=== PATIENT | male | born 1960 | race Caucasian/White ===

== ENCOUNTER → 2019-11-12 11:42 | Outpatient (BNVA) | payer MEDICARE, SELFPAY | PROVIDERS: PCP Internal Medicine; Visit Provider Internal Medicine | DX: I48.19 Other persistent atrial fibrillation (principal); Z51.81 Encounter for therapeutic drug level monitoring; Z79.01 Long term (current) use of anticoagulants | CPT/HCPCS: 85610 ==

== ENCOUNTER → 2019-11-21 09:44 | Outpatient (BNVA) | payer MEDICARE, SELFPAY | PROVIDERS: PCP Internal Medicine; Visit Provider Internal Medicine | DX: I48.19 Other persistent atrial fibrillation (principal); Z51.81 Encounter for therapeutic drug level monitoring; Z79.01 Long term (current) use of anticoagulants | CPT/HCPCS: 85610 ==

== ENCOUNTER → 2019-11-24 15:03 | Outpatient (REF) | payer MEDICARE, SELFPAY ==
--- NOTE | 2019-11-24 15:09 | CA_ITS ---
Transthoracic Echocardiogram Patient (Last, First, Middle): Ketan Cho R Gender: Male Date of : 1960 Age: 59 Procedure Date: 11/24/2019 Procedure Type: Transthoracic Echocardiogram Location: OP Height: 182.88 cm Weight: 163.3 kg BSA: 2.73 m2 Heart Rate: bpm BP: 142 / 81 mmHg Senior Manufacturing Supervisor: Referring MD: Niels Lang MD Symptoms: DIANA Study Quality: Technically Difficult, due to obesity, Contrast us ECG Rhythm: Sinus Conclusions: - Normal left ventricular size and systolic function. - Elevated filling pressures. - The left atrium is moderately dilated. - There is no mitral valve regurgitation. There is no mitral valve stenosis. h/o mitral valve repair. Mean gradient across mitral valve of 6 mm Hg at heart rate 71/min. MVA by pressure half time is 2.04 cm2. - Moderately elevated right atrial pressure. Severe pulmonary hypertension is present. - There is mild dilatation of the sinuses of Valsalva. Findings Left Ventricle Normal left ventricular size and systolic function. There is moderately increased left ventricular wall thickness. The visually estimated ejection fraction is between 55-60%. There is no evidence of regional wall motion abnormalities. There is paradoxical septal motion consistent with post operative status. Diastolic function is indeterminate on the basis of available data. Spectral Doppler is indicative of a pseudonormal filling pattern. Elevated filling pressures. Right Ventricle The right ventricle was not well visualized. Atria The left atrium is moderately dilated. The right atrium was not well visualized. Aortic Valve The aortic valve was not well visualized. There is no aortic valve stenosis. There is no aortic valve regurgitation. Mitral Valve There is no mitral valve regurgitation. There is no mitral valve stenosis. h/o mitral valve repair. Mean gradient across mitral valve of 6 mm Hg at heart rate 71/min. MVA by pressure half time is 2.04 cm2. Pulmonic Valve The pulmonic valve was not well visualized. Tricuspid Valve The tricuspid valve was not well visualized. Moderately elevated right atrial pressure. Severe pulmonary hypertension is present. Great Vessels There is mild dilatation of the sinuses of Valsalva. Venous The inferior vena cava is dilated and collapses less than 50% with inspiration. Pericardium/Pleural There is no evidence of pericardial effusion. Prior Study Comparison No prior study available for comparison. h/o mitral valve repair. Patient of Dr Lakesha. Measurements 2D Linear Measurements IVSd: 1.39 0.6-0.9/0.6-1.0 cm LVIDd: 6.15 3.9-5.3/4.2-5.9 cm LVIDd Index: 2.20 2.4-3.2/2.2-3.1 cm/m2 LVIDs: 3.99 2.0-3.6 cm LVPWd: 1.49 0.7-1.1 cm Ao Root: 4.00 2.1-3.5 cm LA Diam: 6.10 2.7-3.8/3.0-4.0 cm LAIDs Index: 2.19 1.5-2.3 cm/m2 LV Mass: 523.85 67-162/88-224 g LV Mass Index: 187.76 43-95/49-115 g/m2 LVOT Diam: 2.80 3.0+(-)1.3 cm Mitral Valve MV VTI: 0.59 MV Pk Terry: 1.57 MV Mn Terry: 1.05 MV Pk Grad: 10.00 MV Mn Grad: 5.00 MV Pk E: 1.32 MV PK A: 1.31 MV Decel Time: 491.00 E/A: 1.00 E'Lateral: 6.96 E'Medial: 6.00 E/E' Med: 22.00 E/E' Lat: 19.00 PHT: 126.00 MVA PHT: 1.75 MVA Continuity: 2.24 Decel Parmer: 3.61 Aortic Valve AoV Pk Terry: 1.43 AoV Mn Terry: 0.95 AoV VTI: 0.28 AoV Pk Grad: 8.00 Aov Mn Grad: 4.00 DIPIKA Cont.VTI: 4.67 LVOT LVOT Pk Terry: 0.96 LVOT Mn Terry: 0.63 LVOT VTI: 0.21 LVOT Pk Grad: 4.00 LVOT Mn Grad: 2.00 LVOT Diam: 2.80 LVOT Area: 6.16 Diastolic Function MV Pk E: 1.32 MV Pk A: 1.31 E/A: 1.00 E'Medial: 6.00 E/E' Med: 22.00 E' Laterial: 6.96 E/E' Lat: 19.00 Tricuspid Valve TR Pk Terry: 2.86 TR Pk Grad: 55.00 RA Press: 8.00 RVSP: 63.00 Great Vessels Aorta Ao Root-2D: 4.00 2.0-3.7 cm Sinus of Valsalva: 4.00 2.0-3.5 cm Pulmonary Valve PV Pk Terry: 0.94 Peak PV Grad: 4.00 Updated in Other Vendor System with Status of Final Alex Bruce MD electronically signed on 11/25/2019 7:00:35 PM with status of Final
== END ==
LOC: HO.CARD 15:03
PROVIDERS: Visit Provider Hospitalist
DX: G47.33 Obstructive sleep apnea (adult) (pediatric) (principal)
CPT/HCPCS: 93306; Q9957

== ENCOUNTER 2019-11-26 11:07 | Outpatient (REF) | payer MEDICARE, SELFPAY ==
[2019-11-26 14:40] LABS: Anion Gap 18 (12-20); Blood Urea Nitrogen 14 mg/dL (9-16); Carbon Dioxide 28 mmol/L (22-29); Chloride 100 mmol/L (96-108); Estimated Glomerular Filt Rate > 60; Potassium 3.8 mmol/l (3.3-5.1); Sodium 142 mmol/L (135-145)
[2019-11-26 14:42] LABS: Creatinine Urine 22.83 mg/dL; Protein/Creatinine Ratio, Ur 0.88 (<0.2); Total Protein Urine Random 20 mg/dL (<12)
== END 2019-11-26 11:08 | disposition home or self-care (01) ==
LOC: HO.HMGCLDS 11:07
PROVIDERS: PCP Internal Medicine; Visit Provider Internal Medicine Hypertension Specialist
DX: I10 Essential (primary) hypertension (principal); R80.0 Isolated proteinuria; N20.0 Calculus of kidney
CPT/HCPCS: 80051; 82565; 84156; 84520

== ENCOUNTER → 2019-12-05 09:22 | Outpatient (BNVA) | payer MEDICARE, SELFPAY | PROVIDERS: PCP Internal Medicine; Visit Provider Internal Medicine | DX: I48.19 Other persistent atrial fibrillation (principal); Z51.81 Encounter for therapeutic drug level monitoring; Z79.01 Long term (current) use of anticoagulants | CPT/HCPCS: 85610; 99211 ==

== ENCOUNTER → 2019-12-19 09:29 | Outpatient (BNVA) | payer MEDICARE, SELFPAY | PROVIDERS: PCP Internal Medicine; Visit Provider Internal Medicine | DX: I48.19 Other persistent atrial fibrillation (principal); Z51.81 Encounter for therapeutic drug level monitoring; Z79.01 Long term (current) use of anticoagulants | CPT/HCPCS: 85610; 99211 ==

== ENCOUNTER → 2020-01-09 09:28 | Outpatient (BNVA) | payer MEDICARE, SELFPAY | PROVIDERS: PCP Internal Medicine; Visit Provider Internal Medicine | DX: I48.19 Other persistent atrial fibrillation (principal); Z51.81 Encounter for therapeutic drug level monitoring; Z79.01 Long term (current) use of anticoagulants | CPT/HCPCS: 85610; 99211 ==

== ENCOUNTER → 2020-02-02 09:23 | Outpatient (BNVA) | payer MEDICARE, SELFPAY | PROVIDERS: PCP Internal Medicine; Visit Provider Internal Medicine | DX: I48.19 Other persistent atrial fibrillation (principal); Z51.81 Encounter for therapeutic drug level monitoring; Z79.01 Long term (current) use of anticoagulants | CPT/HCPCS: 85610; 99211 ==

== ENCOUNTER → 2020-02-23 09:35 | Outpatient (BNVA) | payer MEDICARE, SELFPAY | PROVIDERS: PCP Internal Medicine; Visit Provider Internal Medicine | DX: I48.19 Other persistent atrial fibrillation (principal); Z51.81 Encounter for therapeutic drug level monitoring; Z79.01 Long term (current) use of anticoagulants | CPT/HCPCS: 85610; 99211 ==

== ENCOUNTER → 2020-02-27 09:17 | Outpatient (BNVA) | payer MEDICARE, SELFPAY | PROVIDERS: PCP Internal Medicine; Visit Provider Internal Medicine | DX: I48.19 Other persistent atrial fibrillation (principal); Z51.81 Encounter for therapeutic drug level monitoring; Z79.01 Long term (current) use of anticoagulants | CPT/HCPCS: 85610; 99211 ==

== ENCOUNTER 2020-03-02 11:27 | Outpatient (REF) | payer MEDICARE, SELFPAY ==
[2020-03-02 14:30] LABS: Alanine Aminotransferase 35 U/L (0-40); Albumin Level 4.2 g/dL (3.5-5.0); Alkaline Phosphatase 80 U/L (39-117); Anion Gap 15 (12-20); Aspartate Amino Transferase 24 U/L (5-37); Bilirubin Total 0.6 mg/dL (0.0-1.0); Blood Urea Nitrogen 14 mg/dL (9-16); Calcium 8.9 mg/dL (8.4-10.2); Carbon Dioxide 29 mmol/L (22-29); Chloride 100 mmol/L (96-108); Cholesterol 145 mg/dL; Estimated Glomerular Filt Rate > 60; Glucose Fasting 123 mg/dL (60-99); HDL Cholesterol 37 mg/dL; LDL Cholesterol Calculated 66 mg/dl; Potassium 3.8 mmol/l (3.3-5.1); Sodium 140 mmol/L (135-145); Total Protein 6.8 g/dL (6.5-8.0); Triglycerides 213 mg/dL
[2020-03-02 14:42] LABS: Estimated Average Glucose 128 mg/dL; Hemoglobin A1c % 6.1 %
[2020-03-02 15:22] LABS: Creatinine Urine 21.87 mg/dL
== END 2020-03-02 11:28 | disposition home or self-care (01) ==
LOC: HO.HMGCLDS 11:27
PROVIDERS: PCP Internal Medicine; Visit Provider Internal Medicine
DX: I10 Essential (primary) hypertension (principal); E78.5 Hyperlipidemia, unspecified; K21.9 Gastro-esophageal reflux disease without esophagitis; E66.01 Morbid (severe) obesity due to excess calories; Z68.42 Body mass index [BMI] 45.0-49.9, adult; E13.9 Other specified diabetes mellitus without complications; I48.19 Other persistent atrial fibrillation; Z51.81 Encounter for therapeutic drug level monitoring; Z79.01 Long term (current) use of anticoagulants
CPT/HCPCS: 36415; 80053; 80061; 82043; 83036; 85610; 99211

== ENCOUNTER → 2020-03-08 09:11 | Outpatient (BNVA) | payer MEDICARE, SELFPAY | PROVIDERS: PCP Internal Medicine; Visit Provider Internal Medicine | DX: I48.19 Other persistent atrial fibrillation (principal); Z51.81 Encounter for therapeutic drug level monitoring; Z79.01 Long term (current) use of anticoagulants | CPT/HCPCS: 85610; 99211 ==

== ENCOUNTER → 2020-03-15 09:32 | Outpatient (BNVA) | payer MEDICARE, SELFPAY | PROVIDERS: PCP Internal Medicine; Visit Provider Internal Medicine | DX: I48.19 Other persistent atrial fibrillation (principal); Z51.81 Encounter for therapeutic drug level monitoring; Z79.01 Long term (current) use of anticoagulants | CPT/HCPCS: 85610; 99211 ==

== ENCOUNTER → 2020-03-31 09:21 | Outpatient (BNVA) | payer MEDICARE, SELFPAY | PROVIDERS: PCP Internal Medicine; Visit Provider Internal Medicine | DX: I48.19 Other persistent atrial fibrillation (principal); Z51.81 Encounter for therapeutic drug level monitoring; Z79.01 Long term (current) use of anticoagulants | CPT/HCPCS: 85610; 99211 ==

== ENCOUNTER → 2020-04-22 09:32 | Outpatient (BNVA) | payer MEDICARE, SELFPAY | PROVIDERS: PCP Internal Medicine; Visit Provider Internal Medicine | DX: I48.19 Other persistent atrial fibrillation (principal); Z51.81 Encounter for therapeutic drug level monitoring; Z79.01 Long term (current) use of anticoagulants | CPT/HCPCS: 85610; 99211 ==

== ENCOUNTER → 2020-05-03 08:56 | Outpatient (BNVA) | payer MEDICARE, SELFPAY | PROVIDERS: PCP Internal Medicine; Visit Provider Internal Medicine | DX: J96.11 Chronic respiratory failure with hypoxia (principal); J43.2 Centrilobular emphysema; I50.32 Chronic diastolic (congestive) heart failure; I27.81 Cor pulmonale (chronic); I48.19 Other persistent atrial fibrillation; Z51.81 Encounter for therapeutic drug level monitoring; Z79.01 Long term (current) use of anticoagulants | CPT/HCPCS: 85610; 99211; 99212 ==

== ENCOUNTER 2020-05-07 09:43 | Outpatient (REF) | payer MEDICARE, SELFPAY ==
--- NOTE | ~2020-05-07 | XR_ITS ---
EXAMINATION: XR CHEST CLINICAL INFORMATION: Dyspnea. COMPARISON: 05/24/2018 chest radiographs. TECHNIQUE: 2 views of the chest were obtained. FINDINGS: Increased interstitial markings and patchy opacities are again seen with similar distribution and minimal interval increase in severity. The heart and mediastinal structures are unremarkable. XR/XR chest 2V IMPRESSION: Increased interstitial markings and patchy opacities show a similar distribution with minimal interval increase compared to the 2019 study. These findings suggest chronic interstitial disease. An acute mild cardiogenic for infectious/inflammatory process cannot be excluded.
[2020-05-07 11:44] LABS: Estimated Average Glucose 131 mg/dL; Hemoglobin A1c % 6.2 %
[2020-05-07 11:45] LABS: Glucose Urine UA NEG (NEG); Leukocyte Esterase Urine NEG (NEG); Nitrite Urine NEG (NEG); Specific Gravity - Urine 1.015 (1.005-1.025); Urine Blood NEG (NEG); Urine Ketones NEG (NEG); Urine Protein TRACE MG/DL (NEG-TRACE)
[2020-05-07 11:47] LABS: Appearance Urine CLEAR; Color Urine YELLOW
[2020-05-07 11:54] LABS: Albumin Level 4.1 g/dL (3.5-5.0); Anion Gap 13 (12-20); Blood Urea Nitrogen 15 mg/dL (9-16); Calcium 8.8 mg/dL (8.4-10.2); Carbon Dioxide 29 mmol/L (22-29); Chloride 102 mmol/L (96-108); Estimated Glomerular Filt Rate > 60; Phosphorus 3.4 mg/dL (2.7-4.5); Sodium 140 mmol/L (135-145)
[2020-05-07 11:55] LABS: B Type Natriuretic Peptide 79 pg/mL (<100); Troponin-I High Sensitivity < 3.5 ng/L (<3.5-35.0)
[2020-05-07 12:26] LABS: Creatinine Urine 29.56 mg/dL; Protein/Creatinine Ratio, Ur 0.88 (<0.2); Total Protein Urine Random 26 mg/dL (<12)
[2020-05-07 12:28] LABS: Erythrocyte Sedimentation Rate 2 MM/HR (0-15)
[2020-05-10 11:32] LABS: Immunoglobulin E 17 kU/L (<OR=114)
[2020-05-12 08:12] LABS: PEU-Protein Creat Ratio Rand 0.848 (0.022-0.128); PEU-Rand. Prot/Creat Ratio 848 mg/g creat (22-128); PEU-Random Ur. Gamma Globulin 5 %; PEU-Random Urine A1 Globulin 5 %; PEU-Random Urine A2 Globulin 5 %; PEU-Random Urine Albumin 76 %; PEU-Random Urine Beta Globulin 9 %; PEU-Random Urine Creatinine 33 mg/dL (20-320); PEU-Random Urine Protein 28 mg/dL (5-25)
== END 2020-05-07 09:44 | disposition home or self-care (01) ==
LOC: HO.HMGCX 09:43
PROVIDERS: Internal Medicine Hypertension Specialist; PCP Internal Medicine; Visit Provider Hospitalist
DX: J44.9 Chronic obstructive pulmonary disease, unspecified (principal); R06.00 Dyspnea, unspecified
CPT/HCPCS: 36415; 71046; 80051; 81003; 82040; 82310; 82565; 82570; 82785; 83036; 83735; 83880; 84100; 84156; 84166; 84484; 84520; 85652; 86335

== ENCOUNTER → 2020-05-17 09:17 | Outpatient (BNVA) | payer MEDICARE, SELFPAY | PROVIDERS: PCP Internal Medicine; Visit Provider Internal Medicine | DX: I48.19 Other persistent atrial fibrillation (principal); Z79.01 Long term (current) use of anticoagulants; Z51.81 Encounter for therapeutic drug level monitoring | CPT/HCPCS: 85610; 99211 ==

== ENCOUNTER → 2020-06-07 09:12 | Outpatient (BNVA) | payer MEDICARE, SELFPAY | PROVIDERS: PCP Internal Medicine; Visit Provider Internal Medicine | DX: I48.19 Other persistent atrial fibrillation (principal); Z51.81 Encounter for therapeutic drug level monitoring; Z79.01 Long term (current) use of anticoagulants | CPT/HCPCS: 85610; 99211 ==

== ENCOUNTER → 2020-07-07 08:57 | Outpatient (BNVA) | payer MEDICARE, SELFPAY | PROVIDERS: PCP Internal Medicine Cardiovascular Disease; Visit Provider Internal Medicine | DX: I48.19 Other persistent atrial fibrillation (principal); Z51.81 Encounter for therapeutic drug level monitoring; Z79.01 Long term (current) use of anticoagulants | CPT/HCPCS: 85610; 99211 ==

== ENCOUNTER 2020-07-12 13:20 | Outpatient (REF) | payer MEDICARE, SELFPAY ==
--- NOTE | ~2020-07-12 | XR_ITS ---
EXAMINATION: XR CHEST CLINICAL INFORMATION: Shortness of breath COMPARISON: Previous chest x-rays most recent May 2020 TECHNIQUE: 2 views of the chest were obtained. FINDINGS: The cardiac silhouette is enlarged but stable. Hilar and mediastinal contours are unremarkable. There are increased interstitial markings suggestive of interstitial lung disease. This does not appear appreciably changed from previous exams. There is no pleural effusion or pneumothorax. There are degenerative changes of the spine. XR/XR chest 2V IMPRESSION: No evidence for acute disease in the chest. Enlarged cardiac silhouette and interstitial lung disease similar to previous chest x-rays.
== END 2020-07-12 13:21 | disposition home or self-care (01) ==
LOC: HO.HMGCX 13:20
PROVIDERS: PCP Internal Medicine; Visit Provider Hospitalist
DX: Z20.822 Contact with and (suspected) exposure to COVID-19 (principal); R06.02 Shortness of breath
CPT/HCPCS: 71046; U0003; U0005

== ENCOUNTER 2020-07-12 14:01 | Inpatient (IN) | payer MEDICARE, SELFPAY ==
[2020-07-12] VITALS (9 sets, daily range): BP systolic 132–145; BP diastolic 65–77; PULSE 78–102; RESP 16–28; TEMP 36.1–37; O2SAT 87–91; BMI 46.2
--- NOTE | ~2020-07-12 | CT_ITS ---
EXAMINATION: CT CHEST WITHOUT CONTRAST CLINICAL INFORMATION: Hypoxia with Covid exposure COMPARISON: Chest radiograph earlier today, CT abdomen pelvis 06/30/2016 TECHNIQUE: Multidetector volumetric CT imaging of the chest was done. Axial MIP volume rendering provided. Sagittal and coronal reformatted images were obtained. This CT examination was performed using dose optimization techniques as appropriate, variously including the following: *Automated exposure control *Adjustment of mA and/or kV according to patient size (this includes techniques or standardized protocols for targeted exams where dose is matched to indication/reason for exam; i.e. extremities or head) *Use of iterative reconstruction technique DLP: 615 mGy-cm FINDINGS: LUNGS: There are marked changes of COPD present. Chronic reticulonodular changes with some peripheral bronchiectasis are present peripherally in the lungs on the right. In the areas which are included, appearances are very similar to the [address] scan. There is herniation of lung out of the thoracic cavity in the right upper lobe (5:168 and 8:42). Typical groundglass infiltrates of Covid 19 infection are not present. MEDIASTINUM: Coronary artery calcifications are seen. Heart size within normal limits. No mediastinal or hilar lymphadenopathy is seen although there are some prominent lymph nodes the largest in the AP window measuring 2.0 x 0.9 cm (5:127). PLEURA: There is no pleural effusion. No pleural mass or thickening. AXILLA: No lymphadenopathy. UPPER ABDOMEN: There is probable hepatic steatosis. OSSEOUS STRUCTURES: Mild degenerative changes present in the spine. No bony destructive lesions seen. CT/CT chest wo con IMPRESSION: 1. COPD unchanged. 2. Peripheral reticulonodular densities and scarring, right greater than left with herniation of a small portion of the right lung outside of the pleural cavity in the right upper lobe. On the visualized portions of the abdomen from 2017, findings appear similar. 3. Typical changes of Covid 19 in the lungs are not present.
--- NOTE | 2020-07-12 14:41 | ED_ITS ---
HPI - SOB/Dyspnea General Chief Complaint: Dyspnea Stated Complaint: DIFF BREATHING Time Seen by Provider: 07/12/20 14:41 Source: patient Mode of arrival: ambulatory Limitations: no limitations History of Present Illness HPI Narrative: cold cough and shortness of breath. Grandson was just diagnosed with COVID. Patient has been vaccinated with COVID. Patient is on 4L O2 at night but states his O2 is in 70s off oxygen. patient had an outpatient cXR that showed chronic changes MD elicited complaint: shortness of breath and cough Pertinent past history: COPD Onset (ago): day(s) (3) Context: recent illness Timing: constant Severity: moderate Exacerbating factors: exertion Known history of: COPD Associated symptoms: cough Related Data Home Medications Medication Instructions Recorded Confirmed amiodarone 200 mg tablet 200 mg PO DAILY 03/12/20 07/12/20 ascorbate calcium (vitamin C) 500 500 mg PO DAILY 03/12/20 07/12/20 mg tablet aspirin 81 mg tablet,delayed 81 mg PO DAILY 03/12/20 07/12/20 release cholecalciferol (vitamin D3) 50 50 mcg PO DAILY 03/12/20 07/12/20 mcg (2,000 unit) capsule magnesium 200 mg tablet 400 mg PO DAILY tab 03/12/20 07/12/20 metoprolol tartrate 100 mg tablet 100 mg PO BID tab 03/12/20 07/12/20 multivitamin PO DAILY 03/12/20 05/17/20 omega-3 fatty acids-fish oil 360 1 cap PO DAILY 03/12/20 07/12/20 mg-1,200 mg capsule vitamin B complex PO DAILY 03/12/20 07/12/20 Previous Rx's Medication Instructions Recorded warfarin 5 mg tablet 5 mg PO DAILY #90 tab 11/12/19 bumetanide 1 mg tablet 1 mg PO DAILY #90 tab 04/05/20 formoterol fumarate 20 mcg/2 mL 2 ml INHALATION Q12H 30 Days #120 05/06/20 solution for nebulization ml revefenacin 175 mcg/3 mL solution 175 mcg INHALATION DAILY 30 Days 05/06/20 for nebulization #90 ml ipratropium 0.5 mg-albuterol 3 mg 3 ml INHALATION QID 30 Days #360 ml 05/12/20 (2.5 mg base)/3 mL nebulization soln losartan 100 mg tablet 100 mg PO DAILY #90 tab 06/24/20 amlodipine 10 mg tablet 10 mg PO DAILY #90 tab 06/29/20 rosuvastatin 20 mg tablet 20 mg PO DAILY #90 tab 06/29/20 Allergies Allergy/AdvReac Type Severity Reaction Status Date / Time vancomycin [VANCOMYCIN] Allergy Intermediate RASH, rash Verified 07/12/20 13:10 over whole body ciprofloxacin [From CIPRO] Allergy Unknown DIFFICULTY Verified 07/12/20 13:10 BREATHING Review of Systems Constitutional: Constitutional: Reports no additional constitutional complaints Eyes: Eyes: Reports no additional eye complaints ENT: Denies dizziness Cardiovascular: Cardiovascular: Reports no additional cardiovascular complaints Respiratory: Respiratory: Reports as per HPI Gastrointestinal: Gastrointestinal: Reports no additional gastrointestinal complaints Musculoskeletal: Musculoskeletal: Reports no additional musculoskeletal complaints Integumentary/Breasts: Skin/Breast: Denies rash Neurologic: Reports system reviewed and no additional complaints, except as documented, Denies dizziness and Denies Sensory deficit (Neuro) Psychiatric: Psychiatric: Denies anxiety [facility] Past Medical History Medical History Cor pulmonale Dyspnea Hypertension, essential Surgical History History of carpal tunnel surgery History of colonoscopy History of mitral valve repair History of thumb surgery History of tonsillectomy History of umbilical hernia History of vasectomy Family History Family History Father No problems noted. Mother No problems noted. Brother No problems noted. Sister No problems noted. Sister No problems noted. Sister No problems noted. Sister No problems noted. Son No problems noted. Daughter No problems noted. Social History Social History Alcohol intake: former Advance Directives: Yes Advance Directives Information Provided: No Advance Directives on File: No Physical Exam Vital Signs: Vital Signs: Last Vital Signs Temp 98.6 F 07/12/20 14:19 Pulse 88 07/12/20 15:25 Resp 17 07/12/20 14:19 BP 142/66 H 07/12/20 14:19 Pulse Ox 90 L 07/12/20 14:19 Oxygen Flow Rate 4 07/12/20 14:19 Body Mass Index 46.2 Const: Other: obese male coughing, does not appear in distress Nutritional Appearance: average body habitus and obese Orientation/consciousness: oriented to person and patient oriented x3 Limitations: no limitations HENMT: Head: Yes normal to inspection Ears: external ears normal General nose exam: Normal external nose present Mouth: Normal oral and palatal mucosa present and oropharynx normal Throat: Yes posterior oropharynx normal Eyes: General: appearance normal, both eyes and all related structures Neck: Other: supple Neck: Yes normal visual inspection Chest: Chest palpation & inspection: normal inspection of the chest Resp: Auscultation: clear to auscultation bilaterally Cardio: Jugular venous distension: no JVD Rate: regular rate Rhythm: regular rhythm Heart sounds: S1 normal heart sound present and S2 normal heart sound present GI: Inspection: Yes normal to inspection Palpation (GI): Soft to palpation, nontender and No hepatosplenomegaly present Auscultation: normal bowel sounds : General: Yes no CVA tenderness Back/Spine/Pelvis: Back: no CVA tenderness Skin: General skin exam: no rashes or lesions noted Neuro: General: oriented to person and patient oriented x3 Cranial nerves: Yes CN's II-XII intact bilaterally Motor exam (neuro): 5/5 motor strength present throughout Sensory Exam: No Sensory deficit (Neuro) Extrem: General: Yes normal to inspection Psych: Appearance: grossly normal Course Course Course Narrative: patient with symptoms concerning for COVID with recent hypoxia, exposure to COVID and cough. ABG shows patient to be hypoxic despite being on 6L NC. Awaiting for chest CT. Reevaluation(s) Reevaluation #1: will sign patient out to Dr. Agarwal Time: 16:21 MDM - SOB/Dyspnea Lab Data Result diagrams: 07/12/20 15:18 07/12/20 15:18 Labs: Lab Results 07/12/20 07/12/20 07/12/20 Range/Units 15:18 15:18 15:18 WBC 8.8 (4.8-10.8) X10*3/uL RBC 5.40 (4.60-5.80) X10*6/uL Hgb 16.7 (14.0-18.0) g/dl Hct 51.9 (42-52) % MCV 96.1 (80-98) fL MCH 30.9 (27.0-33.0) pg MCHC 32.2 (31.0-36.0) g/dl RDW 15.9 (11.0-16.0) % Plt Count 177 (160-400) X10*3/uL MPV 9.4 (9.4-12.4) fL Immature Gran % (Auto) 1.4 H (0.0-0.4) % Neut % (Auto) 70.5 (45-73) % Lymph % (Auto) 13.2 L (20-40) % [place] % (Auto) 12.8 H (2-11) % Eos % (Auto) 1.6 (0-4) % Baso % (Auto) 0.5 (0-2) % Lymph # (Auto) 1.2 (1.2-4.9) X10*3/uL [place] # (Auto) 1.1 (0.1-1.2) X10*3/uL Eos # (Auto) 0.1 (0.0-0.4) X10*3/uL Baso # (Auto) 0.0 (0.0-0.2) X10*3/uL Abs Immat Gran (auto) 0.12 H (0.00-0.03) X10*3/uL Absolute Neuts (auto) 6.2 (2.0-8.3) X10*3/uL Absolute Nucleated RBC 0.030 H (0.0-0.012) X10*3/uL Nucleated RBC % (auto) 0.3 H (0.0-0.2) /100WBC PT 27.3 H (10.8-13.0) SEC INR 2.3 H (0.9-1.1) O2 Saturation % ABG pH at Pt Temp (7.35-7.45) ABG pCO2 at Pt Temp (32-45) mmHg ABG pO2 at Pt Temp (83-108) mmHg ABG HCO3 (22-26) mmol/L ABG Base Excess (Actual) mmol/L Sodium 140 (135-145) mmol/L Potassium 4.4 (3.3-5.1) mmol/L Chloride 104 (96-108) mmol/L Carbon Dioxide 26 (22-29) mmol/L Anion Gap 14 (12-20) BUN 12 (9-16) mg/dL Creatinine 0.79 (0.5-1.4) mg/dL Estim Creat Clear Calc 163.2 Estimated GFR > 60 Random Glucose 105 (60-115) mg/dL Calcium 9.4 D (8.4-10.2) mg/dL 07/12/20 Range/Units 16:07 WBC (4.8-10.8) X10*3/uL RBC (4.60-5.80) X10*6/uL Hgb (14.0-18.0) g/dl Hct (42-52) % MCV (80-98) fL MCH (27.0-33.0) pg MCHC (31.0-36.0) g/dl RDW (11.0-16.0) % Plt Count (160-400) X10*3/uL MPV (9.4-12.4) fL Immature Gran % (Auto) (0.0-0.4) % Neut % (Auto) (45-73) % Lymph % (Auto) (20-40) % [place] % (Auto) (2-11) % Eos % (Auto) (0-4) % Baso % (Auto) (0-2) % Lymph # (Auto) (1.2-4.9) X10*3/uL [place] # (Auto) (0.1-1.2) X10*3/uL Eos # (Auto) (0.0-0.4) X10*3/uL Baso # (Auto) (0.0-0.2) X10*3/uL Abs Immat Gran (auto) (0.00-0.03) X10*3/uL Absolute Neuts (auto) (2.0-8.3) X10*3/uL Absolute Nucleated RBC (0.0-0.012) X10*3/uL Nucleated RBC % (auto) (0.0-0.2) /100WBC PT (10.8-13.0) SEC INR (0.9-1.1) O2 Saturation 87.0 % ABG pH at Pt Temp 7.43 (7.35-7.45) ABG pCO2 at Pt Temp 36 (32-45) mmHg ABG pO2 at Pt Temp 62 L (83-108) mmHg ABG HCO3 24 (22-26) mmol/L ABG Base Excess (Actual) 0.7 mmol/L Sodium (135-145) mmol/L Potassium (3.3-5.1) mmol/L Chloride (96-108) mmol/L Carbon Dioxide (22-29) mmol/L Anion Gap (12-20) BUN (9-16) mg/dL Creatinine (0.5-1.4) mg/dL Estim Creat Clear Calc Estimated GFR Random Glucose (60-115) mg/dL Calcium (8.4-10.2) mg/dL Discharge Plan Discharge Prescriptions: No Action bumetanide 1 mg tablet 1 mg PO DAILY Qty: 90 RF: 0 Perforomist 20 mcg/2 mL solution for nebulization 2 ml inhalation Q12H 30 Days Qty: 120 RF: 11 Yupelri 175 mcg/3 mL solution for nebulization 175 mcg inhalation DAILY 30 Days Qty: 90 RF: 11 ipratropium-albuterol 0.5 mg-3 mg(2.5 mg base)/3 mL solution for nebulization 3 ml inhalation QID 30 Days Qty: 360 RF: 11 losartan 100 mg tablet 100 mg PO DAILY Qty: 90 RF: 0 amlodipine 10 mg tablet 10 mg PO DAILY Qty: 90 RF: 0 rosuvastatin 20 mg tablet 20 mg PO DAILY Qty: 90 RF: 0 metoprolol tartrate 100 mg tablet 100 mg PO BID RF: 0 amiodarone 200 mg tablet 200 mg PO DAILY RF: 0 aspirin [Adult Low Dose Aspirin] 81 mg tablet,delayed release (DR/EC) 81 mg PO DAILY RF: 0 vitamin B complex PO DAILY RF: 0 multivitamin PO DAILY RF: 0 ascorbate calcium (vitamin C) 500 mg tablet 500 mg PO DAILY RF: 0 omega-3 fatty acids-fish oil [Fish Oil] 360-1,200 mg capsule 1 cap PO DAILY RF: 0 magnesium 200 mg tablet 400 mg PO DAILY RF: 0 cholecalciferol (vitamin D3) 50 mcg (2,000 unit) capsule 50 mcg PO DAILY RF: 0 warfarin 5 mg tablet 5 mg PO DAILY Qty: 90 RF: 0
[2020-07-12 15:22] LABS: MANUAL DIFF FLAG NO
[2020-07-12 15:23] LABS: Basophils Percent Auto 0.5 % (0-2); Eosinophils Absolute Auto 0.1 X10*3/uL (0.0-0.4); Eosinophils Percent Auto 1.6 % (0-4); Hematocrit 51.9 % (42-52); Hemoglobin 16.7 g/dl (14.0-18.0); Imm Gran Abs Auto 0.12 X10*3/uL (0.00-0.03); Imm Gran Pct Auto 1.4 % (0.0-0.4); Lymphocytes Absolute Auto 1.2 X10*3/uL (1.2-4.9); Lymphocytes Percent Auto 13.2 % (20-40); Mean Corpuscular HGB Conc 32.2 g/dl (31.0-36.0); Mean Corpuscular Hemoglobin 30.9 pg (27.0-33.0); Mean Corpuscular Volume 96.1 fL (80-98); Mean Platelet Volume 9.4 fL (9.4-12.4); Monocytes Absolute Auto 1.1 X10*3/uL (0.1-1.2); Monocytes Percent Auto 12.8 % (2-11); NRBC Pct Auto 0.3 /100WBC (0.0-0.2); Neutrophils Absolute Auto 6.2 X10*3/uL (2.0-8.3); Neutrophils Percent Auto 70.5 % (45-73); Platelet Count 177 X10*3/uL (160-400); Red Cell Distribution Width 15.9 % (11.0-16.0); White Blood Count 8.8 X10*3/uL (4.8-10.8)
[2020-07-12] MEDS: Albuterol Sulfate 90 MCG 8 GM INHALER 4 PUFF INHALE (15:24)
[2020-07-12 15:32] LABS: INTERNATIONAL NORM RATIO 2.3 (0.9-1.1); Prothrombin Time 27.3 SEC (10.8-13.0)
[2020-07-12 15:53] LABS: Anion Gap 14 (12-20); Blood Urea Nitrogen 12 mg/dL (9-16); Calcium 9.4 mg/dL (8.4-10.2); Carbon Dioxide 26 mmol/L (22-29); Chloride 104 mmol/L (96-108); Creatinine Clr Calc Pharmacy 163.2; Estimated Glomerular Filt Rate > 60; Glucose Random 105 mg/dL (60-115); Potassium 4.4 mmol/L (3.3-5.1); Sodium 140 mmol/L (135-145)
[2020-07-12 16:13] LABS: ABG Base Excess 0.7 mmol/L; ABG HCO3 24 mmol/L (22-26); ABG pCO2 36 mmHg (32-45); ABG pH 7.43 (7.35-7.45); ABG pO2 62 mmHg (83-108)
[2020-07-12 16:41] LABS: Influenza A PCR NEGATIVE (Negative); Influenza B PCR NEGATIVE (Negative); Resp Syncy Virus RNA Qual PCR NEGATIVE (Negative); SARS COV2 PCR INHOUSE NEGATIVE (Negative)
[2020-07-12] MEDS: Albuterol/Iprat 2.5/0.5MG 3 ML AMPUL.NEB INHALE (17:49)
[2020-07-12] MEDS: methylPREDNISolone Sod Succ 125 MG/2 ML VIAL IVPUSH (18:10)
--- NOTE | 2020-07-12 18:19 | ECG_ITS ---
Test Reason : DSYPNEA Blood Pressure : / mmHG Vent. Rate : 087 BPM Atrial Rate : 087 BPM P-R Int : 226 ms QRS Dur : 114 ms QT Int : 390 ms P-R-T Axes : 036 062 023 degrees QTc Int : 469 ms Sinus rhythm with 1st degree A-V block Otherwise normal ECG When compared with ECG of 15-SEP-2017 02:03, Normal sinus rhythm has replaced Possible Atrial tachycardia Referred By: Danyel Agarwal Electronically Signed By:CHAD ALVARADO MD
[2020-07-12] MEDS: Furosemide 40 MG/4 ML VIAL IVPUSH (19:09)
[2020-07-12] MEDS: cefTRIAXone sodium 1 GM in 0.9 % Sodium Chloride 50 ML IV (19:09)
[2020-07-12 19:12] LABS: ABG Refer to POC result
[2020-07-12 19:47] LABS: B Type Natriuretic Peptide 241 pg/mL (<100); Troponin-I High Sensitivity 5.1 ng/L (<3.5-35.0)
[2020-07-12] MEDS: Albuterol Sulfate (0.083%) 2.5 MG/3 ML VIAL.NEB 7.5 MG INHALE (19:56)
--- NOTE | 2020-07-12 21:01 | P.HPHOSP_ITS ---
History of Present Illness Date of Service: 07/12/20 Chief Complaint: Shortness of breath 60-year-old male with a past medical history of hypertension, hyperlipidemia, diabetes, AFib on Coumadin, diastolic heart failure, COPD, history of DIANA/question obesity hypoventilation-on home BiPAP at night, chronic respiratory failure on intermittent oxygen while ambulating; presented to the hospital with a chief complaint of shortness of breath. Patient reports that over the past 3- 4 days he has been having shortness of breath and has COVID exposure about few days ago but reports he has been vaccinated. Mentions that he also has cough with greenish sputum. Denies any chest pain palpitations. Denies any numbness tingling. Mentioned that he went to his PCP who did an x-ray which noted to be abnormal sent to the ER for CT scan. Denies any numbness tingling. Mentions that he has been on compression stockings for leg swelling also takes Bumex at home. Patient reports that he has not been taking his Bumex over the past 3 4 days. Review of all other systems is negative except mentioned above ER course: Per ER team patient CT scan showed chronic findings, patient was hypoxic requiring supplemental oxygen at 4 L, patient is slightly diminished breath sounds, patient was given Solu-Medrol and nebulizations, patient was placed on BiPAP, patient not in respiratory distress, reported that BiPAP is main for oxygenation, patient was speaking in full sentences.. [facility] Medical History Cor pulmonale Dyspnea Hypertension, essential Family History Father No problems noted. Mother No problems noted. Brother No problems noted. Sister No problems noted. Sister No problems noted. Sister No problems noted. Sister No problems noted. Son No problems noted. Daughter No problems noted. Surgical History History of carpal tunnel surgery History of colonoscopy History of mitral valve repair History of thumb surgery History of tonsillectomy History of umbilical hernia History of vasectomy Social History Household Members: None Housing: Apartment Do you presently have visiting nurse or other home services: No Alcohol intake: former Patient Tobacco Use Status: Former Tobacco user Substance Use Type: Marijuana Substance Use Frequency: Occasionally Last Used Substance: Days (ago) Currently Displaying Signs/Symptoms of Drug Intoxication Withdrawal: No Any prior treatment program specific to substance use: No Have you been hit, kicked, punched, or otherwise hurt by someone within the past year? If so, by whom?: No Do you feel safe in your current relationship?: Yes Is there a partner from a previous relationship who is making you feel unsafe now?: No Are you made to feel afraid or neglected: No Advance Directives: Yes Advance Directives Information Provided: No Advance Directives on File: No Advance Directives Date on File: 07/12/20 Do you have thoughts of harming others: None Do you have a plan to hurt others: No Plan Recently lost weight without trying: No Eating poorly because of decreased appetite: No Nutrition Risks: No Nutritional Risk Poor oral hygiene: No service: No Current occupational status: disabled Meds Allergies Allergy/AdvReac Type Severity Reaction Status Date / Time vancomycin [VANCOMYCIN] Allergy Intermediate RASH, rash Verified 07/12/20 13:10 over whole body ciprofloxacin [From CIPRO] Allergy Unknown DIFFICULTY Verified 07/12/20 13:10 BREATHING Active Medications: Current Medications Generic Name Dose Route Start Last Admin Trade Name Freq PRN Reason Stop Dose Admin Acetaminophen 650 mg 07/12/20 20:03 Acetaminophen 325 Mg Tablet PO Q6H PRN Pain, Mild (Pain Scale 1-3) Albuterol/Ipratropium 3 ml 07/12/20 20:06 Albuterol/Iprat 2.5/0.5mg 3 Ml Ampul.Neb INHALE RQ4H PRN Shortness of Breath/Wheezing Albuterol/Ipratropium 3 ml 07/13/20 08:00 Albuterol/Iprat 2.5/0.5mg 3 Ml Ampul.Neb INHALE RQ6H WHILE AWAKE [facility] Docusate Sodium 100 mg 07/12/20 21:00 Docusate Sodium 100 Mg Capsule PO BID [facility] Insulin Human Lispro 0 unit 07/12/20 21:00 Insulin Lispro 100 Unit/Ml 3 Ml Vial SUBCUT QIDACHS [facility] Protocol Methylprednisolone Sodium Succinate 40 mg 07/13/20 02:00 Methylprednisolone Sod Succ 40 Mg/Ml Vial IVPUSH Q8H [facility] Pharmacy Consult 1 each 07/12/20 20:15 Consult Rx Perform Med Rec MISCELLANE ONCE PRN Consult order Senna 17.2 mg 07/12/20 20:03 Sennosides 8.6 Mg Tablet PO BEDTIME PRN Constipation Sodium Chloride 3 ml 07/13/20 00:00 0.9 % Sodium Chloride Flush 3 Ml Syringe IVFLUSH QSHIFT [facility] Home Medications Medication Instructions Recorded Confirmed Last Taken Type amiodarone 200 mg tablet 200 mg PO DAILY 03/12/20 07/12/20 07/12/20 History aspirin 81 mg tablet,delayed 81 mg PO DAILY 03/12/20 07/12/20 07/12/20 History release cholecalciferol (vitamin D3) 50 50 mcg PO DAILY 03/12/20 07/12/20 07/12/20 History mcg (2,000 unit) capsule magnesium 200 mg tablet 400 mg PO DAILY tab 03/12/20 07/12/20 07/12/20 History metoprolol tartrate 100 mg tablet 100 mg PO BID tab 03/12/20 07/12/20 07/12/20 History omega-3 fatty acids-fish oil 360 1 cap PO DAILY 03/12/20 07/12/20 07/12/20 History mg-1,200 mg capsule multivitamin 1 tab PO DAILY 07/12/20 07/12/20 07/12/20 History rosuvastatin 20 mg PO BEDTIME 07/12/20 07/12/20 07/11/20 History vitamin B complex 1 tab PO DAILY 07/12/20 07/12/20 07/12/20 History warfarin 10 mg PO MOWEFR 07/12/20 07/12/20 07/09/20 History warfarin 12.5 mg PO SUTUTHSA 07/12/20 07/12/20 07/11/20 History warfarin mg PO USEASDIRECTD 07/12/20 07/12/20 22:24 History Physical Exam Vital Signs and Narrative: Vital Signs: Last Vital Signs Temp 98.6 F 07/12/20 14:19 Pulse 90 07/12/20 19:58 Resp 20 07/12/20 20:32 BP 132/77 07/12/20 19:12 Pulse Ox 91 L 07/12/20 19:12 Oxygen Flow Rate 4 07/12/20 14:19 Body Mass Index 46.2 Gen: Appears be in no acute distress sed; patient on BiPAP. Not in distress. HEENT: NCAT, Moist mucosa. Pulmonary: Slightly diminished breath sounds. CVS: Normal S1-S2 Abdomen: BS+, Soft, Nontender Extremities: Warm well perfused; pedal edema present Neuro: Alert and awake. Results Labs CBC and Chem 7: 07/13/20 06:37 07/14/20 05:58 Labs: Laboratory Results - last 24 hr 07/12/20 07/12/20 07/12/20 15:18 15:18 15:18 MCV 96.1 MCH 30.9 MCHC 32.2 RDW 15.9 Plt Count 177 MPV 9.4 Immature Gran % (Auto) 1.4 H Neut % (Auto) 70.5 Lymph % (Auto) 13.2 L [place] % (Auto) 12.8 H Eos % (Auto) 1.6 Baso % (Auto) 0.5 Lymph # (Auto) 1.2 [place] # (Auto) 1.1 Eos # (Auto) 0.1 Baso # (Auto) 0.0 Abs Immat Gran (auto) 0.12 H Absolute Neuts (auto) 6.2 Absolute Nucleated RBC 0.030 H Nucleated RBC % (auto) 0.3 H PT 27.3 H INR 2.3 H O2 Saturation ABG pH at Pt Temp ABG pCO2 at Pt Temp ABG pO2 at Pt Temp ABG HCO3 ABG Base Excess (Actual) Anion Gap 14 Estim Creat Clear Calc 163.2 Estimated GFR > 60 Random Glucose 105 Calcium 9.4 D Troponin I High Sens B-Natriuretic Peptide Coronavirus (PCR) Influenza Type A (PCR) Influenza Type B (PCR) RSV RNA Qual (PCR) 07/12/20 07/12/20 07/12/20 15:42 16:07 19:11 MCV MCH MCHC RDW Plt Count MPV Immature Gran % (Auto) Neut % (Auto) Lymph % (Auto) [place] % (Auto) Eos % (Auto) Baso % (Auto) Lymph # (Auto) [place] # (Auto) Eos # (Auto) Baso # (Auto) Abs Immat Gran (auto) Absolute Neuts (auto) Absolute Nucleated RBC Nucleated RBC % (auto) PT INR O2 Saturation 87.0 ABG pH at Pt Temp 7.43 ABG pCO2 at Pt Temp 36 ABG pO2 at Pt Temp 62 L ABG HCO3 24 ABG Base Excess (Actual) 0.7 Anion Gap Estim Creat Clear Calc Estimated GFR Random Glucose Calcium Troponin I High Sens 5.1 B-Natriuretic Peptide 241 H Coronavirus (PCR) NEGATIVE Influenza Type A (PCR) NEGATIVE Influenza Type B (PCR) NEGATIVE RSV RNA Qual (PCR) NEGATIVE Imaging Radiologist's Impressions: Impressions Chest CT 07/12/20 15:45 IMPRESSION: 1. COPD unchanged. 2. Peripheral reticulonodular densities and scarring, right greater than left with herniation of a small portion of the right lung outside of the pleural cavity in the right upper lobe. On the visualized portions of the abdomen from 2017, findings appear similar. 3. Typical changes of Covid 19 in the lungs are not present. Assessment and Plan (1) SOB (shortness of breath): Status: Acute 60-year-old male with a past medical history of hypertension, hyperlipidemia, diabetes, COPD, chronic respiratory failure on intermittent home oxygen, DIANA on BiPAP at night, diastolic heart failure, AFib on Coumadin presented to the hospital with a chief complaint of shortness of breath/cough. Acute hypoxic respiratory failure: Likely in the setting of COPD. CT scan showed refer reticulonodular densities and scarring. Patient has known prior lung findings. Follows pulmonology as outpatient. Will consult pulmonology for further recommendations. Patient has known interstitial lung disease. COPD exacerbation: Patient will be on DuoNebs and Solu-Medrol. DIANA: BiPAP at night. Diabetes: Insulin sliding scale Hypertension/hyperlipidemia: Continue home medications History of CHF: Patient has not been taking his Lasix at home. Noted peripheral edema. Will continue home Bumex. Telemetry. Initial troponin negative. Cycle enzymes. History of AFib: Rate controlled. Continue Coumadin. INR therapeutic. DVT prophylaxis: Patient on: Code status: Full code
--- NOTE | 2020-07-12 21:01 | PHA.MEDREC ---
Pharmacy Consult ? Medication Reconciliation Pharmacy has completed the medication reconciliation. Patient takes warfarin 10mg three days a week, and warfarin 12.5mg 4 days a week. His protocol per [facility] states he should be taking 5 mg on Wednesdays, but he states he has been taking 10mg.
[2020-07-12 21:47] LABS: Glucose, Whole Blood 149 mg/dL (60-115)
[2020-07-12] MEDS: Docusate Sodium 100 MG CAPSULE PO (21:59)
[2020-07-12] MEDS: Azithromycin 500 MG TABLET PO (21:59)
[2020-07-12] MEDS: Warfarin Sodium 10 MG TABLET PO (21:59)
[2020-07-12] MEDS: 0.9 % Sodium Chloride Flush 3 ML SYRINGE IVFLUSH (23:02)
[2020-07-13] VITALS (12 sets, daily range): BP systolic 132–152; BP diastolic 73–83; PULSE 68–110; RESP 19–21; TEMP 36.2–36.5; O2SAT 89–93
[2020-07-13] MEDS: methylPREDNISolone Sod Succ 40 MG/ML VIAL IVPUSH ×3 (01:54→17:15)
[2020-07-13 06:50] LABS: Basophils Percent Auto 0.1 % (0-2); Hematocrit 53.3 % (42-52); Hemoglobin 17.2 g/dl (14.0-18.0); Imm Gran Abs Auto 0.09 X10*3/uL (0.00-0.03); Imm Gran Pct Auto 1.1 % (0.0-0.4); Lymphocytes Absolute Auto 0.5 X10*3/uL (1.2-4.9); Lymphocytes Percent Auto 6.6 % (20-40); MANUAL DIFF FLAG SCAN; Mean Corpuscular HGB Conc 32.3 g/dl (31.0-36.0); Mean Corpuscular Volume 96.2 fL (80-98); Mean Platelet Volume 9.4 fL (9.4-12.4); Monocytes Absolute Auto 0.2 X10*3/uL (0.1-1.2); Monocytes Percent Auto 2.3 % (2-11); Neutrophils Absolute Auto 7.4 X10*3/uL (2.0-8.3); Neutrophils Percent Auto 89.9 % (45-73); Platelet Count 188 X10*3/uL (160-400); Red Blood Count 5.54 X10*6/uL (4.60-5.80); Red Cell Distribution Width 15.8 % (11.0-16.0); SCAN SMEAR FLAG 1; White Blood Count 8.2 X10*3/uL (4.8-10.8)
[2020-07-13 06:58] LABS: INTERNATIONAL NORM RATIO 2.3 (0.9-1.1); Prothrombin Time 27.4 SEC (10.8-13.0)
[2020-07-13 07:13] LABS: Magnesium 2.2 mg/dL (1.6-2.6)
[2020-07-13 07:23] LABS: Anion Gap 18 (12-20); Blood Urea Nitrogen 18 mg/dL (9-16); Calcium 9.2 mg/dL (8.4-10.2); Carbon Dioxide 21 mmol/L (22-29); Chloride 101 mmol/L (96-108); Creatinine Clr Calc Pharmacy 135.7; Estimated Glomerular Filt Rate > 60; Glucose Random 224 mg/dL (60-115); Potassium 4.3 mmol/L (3.3-5.1); Sodium 136 mmol/L (135-145)
[2020-07-13 07:26] LABS: SLIDE REVIEW VERIFIED
[2020-07-13 07:40] LABS: Glucose, Whole Blood 240 mg/dL (60-115)
[2020-07-13] MEDS: Albuterol/Iprat 2.5/0.5MG 3 ML AMPUL.NEB INHALE ×4 (07:42→20:09)
[2020-07-13] MEDS: Bumetanide 1 MG TABLET PO ×2 (08:06→14:17)
[2020-07-13] MEDS: Losartan Potassium 50 MG TABLET 100 MG PO (08:06)
[2020-07-13] MEDS: amLODIPine Besylate 10 MG TABLET PO (08:07)
[2020-07-13] MEDS: Cholecalciferol (Vitamin D3) 25 MCG TABLET 50 MCG PO (08:07)
[2020-07-13] MEDS: Docusate Sodium 100 MG CAPSULE PO ×2 (08:07→20:47)
[2020-07-13] MEDS: Aspirin Enteric Coated 81 MG TABLET.DR PO (08:07)
[2020-07-13] MEDS: Multivitamin TABLET 1 TAB PO (08:07)
[2020-07-13] MEDS: Amiodarone HCL 200 MG TABLET PO (08:07)
[2020-07-13] MEDS: Metoprolol Tartrate 100 MG TABLET PO ×2 (08:08→20:47)
[2020-07-13] MEDS: Insulin Lispro 100 UNIT/ML 3 ML VIAL SUBCUT ×4 (08:09→20:46)
[2020-07-13] MEDS: 0.9 % Sodium Chloride Flush 3 ML SYRINGE IVFLUSH ×3 (08:10→21:03)
--- NOTE | 2020-07-13 09:19 | PM.EVENT ---
Event Note Date of Service: 07/13/20 Event Note: 60 years old gentleman is seen for pulmonary consultation. Patient interviewed and examined. Current history, lab, imaging reviewed. Complete consultation note is dictated. A: Acute exacerbation of chronic respiratory failure. Known case of morbid obesity, DIANA/hypoventilation syndrome, possible COPD/interstitial lung disease. Current increase in the symptoms may be due to increased fluid retention because he was out of his diuretic agent for 1 week. P: Restart the diuretic therapy. DuoNeb updrafts q.6 hours while awake, and oxygen 3-4 L/minute to keep O2 sat just above 90%. IV Solu-Medrol for 1 day then it he can be on prednisone 40 mg a day for 5 days. No need of any antibiotic therapy at this time, Patient is instructed to do deep breathing exercises.
--- NOTE | 2020-07-13 10:01 | PC.NURSE ---
[facility] called,patient has frequent PVCs ,bigeminy,trigeminy on heart monitor.This RN went to see patient and is asymptomatic,states feels fine.Dr Parker notified via [place].
[2020-07-13 11:42] LABS: Glucose, Whole Blood 241 mg/dL (60-115)
--- NOTE | 2020-07-13 12:50 | MHC.CM.PN ---
NURSE DETENTION SERGEANT NOTE ELECTRONIC MEDICAL RECORD REVIEWED ALONG WITH CASE DISCUSSED WITH STAFF NURSE AND ON MULTIPLE DISCIPLINARY ROUNDS MET WITH PATIENT, HER REPORTED THAT HE LIVES ALONE IN A APARTMENTS, HIS INDEPENDENT IN HIS ADLS AND MOBILITY WITH AMBULATING WITH [facility] .HE HAS SLEEP APNEA AND USES BIPAP AT HS ALONG WITH HOME OXYGEN, HE ALSO HAS A NEBULIZER AND UPDRAFTS, HE HAS NO VNA .NO OUTREACH LIBRARIAN HIS FAMILY LIVES CLOSE BY HE IS ON SOCIAL SECURITY DISABILITY, , PER DOCUMENTATION- HAS HISTORY OF( CHF-- HTN-COPD,A-FIB ON ANTICOAGULANT AND IS FOLLOWED BY THE [facility]HE IS FOLLOWED BY DR GARCIA ON [facility]OR[facility], AND DR DUPONT PULOMN[facility] AT [facility] PATIENT REP[ORTS THAT HE WAS SEEN BY HIS SCREEN REPAIRER CRUSHER AND DOUBLED THE DOSE OF HIS BUMEX, WHEN HE RAN OUT HE CALLED HIS PPCP AT THE [facility] AND LEFT MESSAGE THAT HE NEEDED A REFILL, THERE RESPONSE BACK WAS THAT THE INSURANCE WOULD NOT COVER IT SINCE IT WAS TOO EARLY TO RENEW, (HE REPORTED THAT HE DID NOT THINLK TO TELEL THEM THAT HIS DOSE HAD BEEN INCREASED, NOR DID HE THINK THTO CALL THE SCREEN REPAIRER CRUSHER FOR SCRIPT. HE WAS OUT OF IT FOR A FEW DAYS AND THENNBEGAN TO HAVE INCREASING SHORTNESS OF BREATH, AND EASILY FATIGUED DISCHARGE PLAN RETURN HOME NO NEW SERVICES SELF RESUMPTION OF HIS SERVICES THROUGH [facility] FOR HOME OXYGEN, NEBULIZER, BIPAP SELF RESUMPTION OF HIS SERVICES WITH THE [facility] SELF RESUMPTION FOLLOW UP WITH HIS DISTRICT ATTORNEY AND SCREEN REPAIRER CRUSHER ABOVE PCP DR JOAN FERRERA TRANSPORTATION FAMILY, REQUESTED COPY OF HCP MEDICARE [facility] 07/13/20
--- NOTE | 2020-07-13 13:37 | HO.PM.IMPN ---
Subjective Subjective Date of Service: 07/13/20 Interval History: the patient was seen and evaluated this morning Sitting in the chair, complaining of some dyspnea with minimal exertion, failed his legs are filled with fluids Denies any fever, chills but reports shortness of breath No reported other overnight events. Systemic review: No fever, chills or weakness No chest pain, palpitation , has bilateral lower extremity edema Dyspnea on exertion with no coughing No abdominal pain, nausea or vomiting No urinary symptoms No any rash or wounds Physical Exam Vital Signs: Vital Signs: Last Vital Signs Temp 97.1 F 07/13/20 11:27 Pulse 74 07/13/20 11:27 Resp 19 07/13/20 11:27 BP 132/73 07/13/20 11:27 Pulse Ox 90 L 07/13/20 11:27 Oxygen Flow Rate 4 07/12/20 14:19 Body Mass Index 46.2 Const: Other: Constitutional : Alert, oriented, not in distress Neck : Normal inspection, Supple Cardiovascular : RRR, S1 S2, +2 bilateral lower extremity edema Respiratory : Good bilateral air entry, basal fine crackles, bilateral scattered wheezes or rhonchi Gastrointestinal: soft, lax, Normal bowel sounds, Non tender Skin : Warm/Dry, No rash Neurological : Alert & oriented x3, No focal deficit Objective Data Current Medications Generic Name Dose Route Start Last Admin Trade Name Joseq PRN Reason Stop Dose Admin Acetaminophen 650 mg 07/12/20 20:03 Acetaminophen 325 Mg Tablet PO Q6H PRN Pain, Mild (Pain Scale 1-3) Albuterol/Ipratropium 3 ml 07/12/20 20:06 Albuterol/Iprat 2.5/0.5mg 3 Ml Ampul.Neb INHALE RQ4H PRN Shortness of Breath/Wheezing Albuterol/Ipratropium 3 ml 07/13/20 08:00 07/13/20 11:23 Albuterol/Iprat 2.5/0.5mg 3 Ml Ampul.Neb INHALE 3 ml RQ4H WHILE AWAKE MARC Administration Amiodarone HCl 200 mg 07/13/20 09:00 07/13/20 08:07 Amiodarone Hcl 200 Mg Tablet PO 200 mg DAILY MARC Administration Amlodipine Besylate 10 mg 07/13/20 09:00 07/13/20 08:07 Amlodipine Besylate 10 Mg Tablet PO 10 mg DAILY MARC Administration Protocol Aspirin 81 mg 07/13/20 09:00 07/13/20 08:07 Aspirin Enteric Coated 81 Mg Tablet.Dr PO 81 mg DAILY MARC Administration Atorvastatin Calcium 80 mg 07/13/20 21:00 Atorvastatin Calcium 80 Mg Tablet PO BEDTIME MARC Azithromycin 500 mg 07/12/20 22:00 07/12/20 21:59 Azithromycin 500 Mg Tablet PO 500 mg Q24H MARC Administration Bumetanide 2 mg 07/14/20 09:00 Bumetanide 1 Mg Tablet PO DAILY [facility] Protocol Docusate Sodium 100 mg 07/12/20 21:00 07/13/20 08:07 Docusate Sodium 100 Mg Capsule PO 100 mg BID MARC Administration Insulin Human Lispro 0 unit 07/12/20 21:00 07/13/20 11:50 Insulin Lispro 100 Unit/Ml 3 Ml Vial SUBCUT 4 unit QIDACHS [facility] Administration Protocol Losartan Potassium 100 mg 07/13/20 09:00 07/13/20 08:06 Losartan Potassium 50 Mg Tablet PO 100 mg DAILY [facility] Administration Protocol Methylprednisolone Sodium Succinate 40 mg 07/13/20 02:00 07/13/20 08:10 Methylprednisolone Sod Succ 40 Mg/Ml Vial IVPUSH 40 mg Q8H [facility] Administration Metoprolol Tartrate 100 mg 07/13/20 09:00 07/13/20 08:08 Metoprolol Tartrate 100 Mg Tablet PO 100 mg BID MARC Administration Protocol Multivitamins/Vitamin C 1 tab 07/13/20 09:00 07/13/20 08:07 Multivitamin Tablet PO 1 tab DAILY [facility] Administration Pharmacy Consult 1 each 07/12/20 20:15 Consult Rx Perform Med Rec MISCELLANE ONCE PRN Consult order Senna 17.2 mg 07/12/20 20:03 Sennosides 8.6 Mg Tablet PO BEDTIME PRN Constipation Sodium Chloride 3 ml 07/13/20 00:00 07/13/20 08:10 0.9 % Sodium Chloride Flush 3 Ml Syringe IVFLUSH 3 ml QSHIFT [facility] Administration Vitamin D 50 mcg 07/13/20 09:00 07/13/20 08:07 Cholecalciferol (Vitamin D3) 25 Mcg Tablet PO 50 mcg DAILY MARC Administration Warfarin Sodium 10 mg 07/12/20 21:15 07/12/20 21:59 Warfarin Sodium 10 Mg Tablet PO 10 mg MOWEFR MARC Administration Warfarin Sodium 12.5 mg 07/13/20 21:00 Warfarin Sodium 2.5 Mg Tablet PO Leonel@[id number] [facility] Labs CBC & Chem 7: 07/13/20 06:37 07/13/20 06:37 Assessment and Plan (1) SOB (shortness of breath): Status: Acute Assessment and Plan: 60-year-old male with a past medical history of hypertension, hyperlipidemia, diabetes, COPD, chronic respiratory failure on intermittent home oxygen, DIANA on BiPAP at night, diastolic heart failure, AFib on Coumadin presented to the hospital with a chief complaint of shortness of breath/cough. Acute hypoxic respiratory failure Secondary to exacerbation of COPD and acute diastolic CHF exacerbation Did not take his Bumex for the last [address] scan showed refer reticulonodular densities and scarring. Patient has known prior lung findings. Follows pulmonology as outpatient Pending consult pulmonology for further recommendations Acute diastolic CHF exacerbation Increased Bumex dose to 2 mg daily Monitor intake and output COPD exacerbation Continue DuoNebs and Solu-Medrol. DIANA BiPAP at night. Diabetes Insulin sliding scale Hypertension/hyperlipidemia Continue home medications History of AFib Rate controlled. Continue Coumadin. INR therapeutic. DVT prophylaxis Warfarin
[2020-07-13 16:29] LABS: Glucose, Whole Blood 202 mg/dL (60-115)
[2020-07-13 20:27] LABS: Glucose, Whole Blood 270 mg/dL (60-115)
[2020-07-13] MEDS: Azithromycin 500 MG TABLET PO (20:47)
[2020-07-13] MEDS: Atorvastatin Calcium 80 MG TABLET PO (20:47)
[2020-07-13] MEDS: Warfarin Sodium 2.5 MG TABLET 12.5 MG PO (21:01)
[2020-07-14] VITALS (10 sets, daily range): BP systolic 129–151; BP diastolic 64–90; PULSE 74–94; RESP 16–21; TEMP 36.1–36.8; O2SAT 89–92
[2020-07-14] MEDS: methylPREDNISolone Sod Succ 40 MG/ML VIAL IVPUSH ×2 (02:30→09:52)
[2020-07-14 06:54] LABS: B Type Natriuretic Peptide 78 pg/mL (<100)
[2020-07-14 06:56] LABS: Anion Gap 18 (12-20); Blood Urea Nitrogen 20 mg/dL (9-16); Calcium 9.2 mg/dL (8.4-10.2); Carbon Dioxide 20 mmol/L (22-29); Chloride 105 mmol/L (96-108); Creatinine Clr Calc Pharmacy 153.5; Estimated Glomerular Filt Rate > 60; Glucose Random 211 mg/dL (60-115); Potassium 4.8 mmol/L (3.3-5.1); Sodium 138 mmol/L (135-145)
[2020-07-14 07:29] LABS: Glucose, Whole Blood 222 mg/dL (60-115)
[2020-07-14] MEDS: Insulin Lispro 100 UNIT/ML 3 ML VIAL SUBCUT ×4 (08:01→21:37)
[2020-07-14] MEDS: Multivitamin TABLET 1 TAB PO (08:02)
[2020-07-14] MEDS: Cholecalciferol (Vitamin D3) 25 MCG TABLET 50 MCG PO (08:02)
[2020-07-14] MEDS: Docusate Sodium 100 MG CAPSULE PO ×2 (08:02→21:36)
[2020-07-14] MEDS: Losartan Potassium 50 MG TABLET 100 MG PO (08:02)
[2020-07-14] MEDS: Bumetanide 1 MG TABLET 2 MG PO (08:02)
[2020-07-14] MEDS: Aspirin Enteric Coated 81 MG TABLET.DR PO (08:02)
[2020-07-14] MEDS: Amiodarone HCL 200 MG TABLET PO (08:02)
[2020-07-14] MEDS: amLODIPine Besylate 10 MG TABLET PO (08:03)
[2020-07-14] MEDS: Metoprolol Tartrate 100 MG TABLET PO ×2 (08:03→21:36)
[2020-07-14] MEDS: 0.9 % Sodium Chloride Flush 3 ML SYRINGE IVFLUSH ×3 (08:03→21:37)
[2020-07-14] MEDS: Albuterol/Iprat 2.5/0.5MG 3 ML AMPUL.NEB INHALE ×4 (08:03→20:02)
[2020-07-14 10:52] LABS: INTERNATIONAL NORM RATIO 3.5 (0.9-1.1); Prothrombin Time 42.7 SEC (10.8-13.0)
--- NOTE | 2020-07-14 11:02 | HO.PM.IMPN ---
Subjective Subjective Date of Service: 07/14/20 Interval History: Complaining of persistent chest congestion and shortness of breath with activity does not feel he is at baseline, on 6 L of oxygen finger oximetry 92% this a.m. General no headache, no dizziness no fever chills. CVS no chest pain, no palpitation. Respiratory cough and congestion, unable to bring up phlegm, shortness of breath with exertion. Gastrointestinal no nausea no vomiting, no abdominal pain Physical Exam Vital Signs: Vital Signs: Last Vital Signs Temp 97.1 F 07/14/20 07:21 Pulse 83 07/14/20 08:04 Resp 19 07/14/20 07:21 BP 141/77 H 07/14/20 07:21 Pulse Ox 92 07/14/20 07:21 Oxygen Flow Rate 4 07/12/20 14:19 Body Mass Index 46.2 General resting comfortably in no acute distress. Neck supple no JVD. CVS regular rate rhythm, Respiratory lungs bilateral rhonchi, no respiratory distress, no use of accessory muscles Gastrointestinal abdomen soft, nontender, distended, bowel sounds audible, no guarding , no rigidity. Extremities no edema. Neuro nonfocal , speech clear. Skin no rash Objective Data Current Medications Generic Name Dose Route Start Last Admin Trade Name Freq PRN Reason Stop Dose Admin Acetaminophen 650 mg 07/12/20 20:03 Acetaminophen 325 Mg Tablet PO Q6H PRN Pain, Mild (Pain Scale 1-3) Albuterol/Ipratropium 3 ml 07/12/20 20:06 Albuterol/Iprat 2.5/0.5mg 3 Ml Ampul.Neb INHALE RQ4H PRN Shortness of Breath/Wheezing Albuterol/Ipratropium 3 ml 07/13/20 08:00 07/14/20 08:03 Albuterol/Iprat 2.5/0.5mg 3 Ml Ampul.Neb INHALE 3 ml RQ4H WHILE AWAKE MARC Administration Amiodarone HCl 200 mg 07/13/20 09:00 07/14/20 08:02 Amiodarone Hcl 200 Mg Tablet PO 200 mg DAILY MARC Administration Amlodipine Besylate 10 mg 07/13/20 09:00 07/14/20 08:03 Amlodipine Besylate 10 Mg Tablet PO 10 mg DAILY MARC Administration Protocol Aspirin 81 mg 07/13/20 09:00 07/14/20 08:02 Aspirin Enteric Coated 81 Mg Tablet.Dr PO 81 mg DAILY MARC Administration Atorvastatin Calcium 80 mg 07/13/20 21:00 07/13/20 20:47 Atorvastatin Calcium 80 Mg Tablet PO 80 mg BEDTIME MARC Administration Azithromycin 500 mg 07/12/20 22:00 07/13/20 20:47 Azithromycin 500 Mg Tablet PO 500 mg Q24H MARC Administration Bumetanide 2 mg 07/14/20 09:00 07/14/20 08:02 Bumetanide 1 Mg Tablet PO 2 mg DAILY MARC Administration Protocol Docusate Sodium 100 mg 07/12/20 21:00 07/14/20 08:02 Docusate Sodium 100 Mg Capsule PO 100 mg BID MARC Administration Insulin Human Lispro 0 unit 07/12/20 21:00 07/14/20 08:01 Insulin Lispro 100 Unit/Ml 3 Ml Vial SUBCUT 4 unit QIDACHS [facility] Administration Protocol Losartan Potassium 100 mg 07/13/20 09:00 07/14/20 08:02 Losartan Potassium 50 Mg Tablet PO 100 mg DAILY MARC Administration Protocol Methylprednisolone Sodium Succinate 40 mg 07/13/20 02:00 07/14/20 09:52 Methylprednisolone Sod Succ 40 Mg/Ml Vial IVPUSH 40 mg Q8H [facility] Administration Metoprolol Tartrate 100 mg 07/13/20 09:00 07/14/20 08:03 Metoprolol Tartrate 100 Mg Tablet PO 100 mg BID [facility] Administration Protocol Multivitamins/Vitamin C 1 tab 07/13/20 09:00 07/14/20 08:02 Multivitamin Tablet PO 1 tab DAILY [facility] Administration Pharmacy Consult 1 each 07/12/20 20:15 Consult Rx Perform Med Rec MISCELLANE ONCE PRN Consult order Senna 17.2 mg 07/12/20 20:03 Sennosides 8.6 Mg Tablet PO BEDTIME PRN Constipation Sodium Chloride 3 ml 07/13/20 00:00 07/14/20 08:03 0.9 % Sodium Chloride Flush 3 Ml Syringe IVFLUSH 3 ml QSHIFT [facility] Administration Vitamin D 50 mcg 07/13/20 09:00 07/14/20 08:02 Cholecalciferol (Vitamin D3) 25 Mcg Tablet PO 50 mcg DAILY MARC Administration Warfarin Sodium 10 mg 07/12/20 21:15 07/12/20 21:59 Warfarin Sodium 10 Mg Tablet PO 10 mg MOWEFR MARC Administration Warfarin Sodium 12.5 mg 07/13/20 21:00 07/13/20 21:01 Warfarin Sodium 2.5 Mg Tablet PO 12.5 mg Leonel@2100 [facility] Administration Labs CBC & Chem 7: 07/13/20 06:37 07/14/20 05:58 Assessment and Plan (1) Acute and chronic respiratory failure with hypoxia: Status: Acute (2) Acute diastolic heart failure: Status: Acute (3) SOB (shortness of breath): Status: Acute (4) Cor pulmonale: Status: Acute (5) Chronic hypoxemic respiratory failure: Status: Acute (6) Sleep apnea: Status: Acute (7) Current use of anticoagulant therapy: Status: Acute (8) Hypertension, essential: Status: Acute (9) Atrial fibrillation: Status: Acute (10) Hyperlipidemia: Status: Acute (11) Oxygen dependent: Status: Acute Assessment and Plan: 60-year-old male with a past medical history of hypertension, hyperlipidemia, diabetes, COPD, chronic respiratory failure on intermittent home oxygen, DIANA on BiPAP at night, diastolic heart failure, AFib on Coumadin presented to the hospital with a chief complaint of shortness of breath/cough. Acute on chronic hypoxic respiratory failure Secondary to exacerbation of COPD and acute diastolic CHF exacerbation Continue Bumex 2 mg by mouth daily wean oxygen to 4 L patient use 4 L of oxygen with BiPAP and with activity CT scan showed reticulonodular densities and scarring. Patient has known prior lung findings. Will wean IV Solu-Medrol to 40 mg b.i.d., add expectorant, continue DuoNeb, encourage incentive spirometry Seen by Dr. Boucher he recommend prednisone 40 mg for 5 days and DuoNeb q.i.d. Acute diastolic CHF exacerbation Resolved, BNP normalized to 78, appears euvolemic Continue Bumex dose to 2 mg daily Monitor intake and output DIANA Continue BiPAP with 4 L of oxygen at night. Diabetes elevated blood sugar around 200 likely due to steroids Insulin sliding scale Hypertension/hyperlipidemia Stable blood pressure Continue home medications History of AFib Rate controlled. Hold Coumadin INR elevated 3.5, follow INR at a.m. DVT prophylaxis Warfarin
[2020-07-14 11:36] LABS: Glucose, Whole Blood 181 mg/dL (60-115)
--- NOTE | 2020-07-14 11:38 | CONS_ITS ---
DATE OF SERVICE: 07/13/[address] Jenny Parker. HISTORY OF PRESENT ILLNESS: This is a 60-year-old gentleman is known to the Pulmonary Department. He is admitted here with 3- to 4-day history of increasing shortness of breath. He has had no fever or chills. Some cough with minimal expectoration. No wheezing. The patient states that he has been out of his diuretic Bumex for about 1 week because he had doubled up the dose for the previous week. He states that he had been using his respiratory medications as well as other medications regularly except for Bumex. He had started having some swelling of the legs, and he started using his compression stockings since few days ago. It did not help much. He denies fever, chills, or chest pain. He was not able to lie flat. Mostly, he sleeps in a propped up position. PAST MEDICAL HISTORY: This gentleman is well known and recorded in the medical records. He has morbid obesity, a known case of obstructive sleep apnea with chronic hypoventilation syndrome. He is on BiPAP as well as oxygen supplementation at home. He has been compliant to the use of BiPAP. In addition, he has hypertension, hyperlipidemia, chronic atrial fibrillation, diabetes mellitus, and also diastolic failure. He also has chronic interstitial lung disease as part of his previous x-rays and CT scans. He has history of exposure to someone with the COVID infection, but he is fully vaccinated himself. His current medications at home include DuoNeb updrafts q.6 hours while awake and p.r.n. He is on oxygen 2 L/minute and BiPAP use at nighttime. The patient denies smoking or any other addictions. PHYSICAL EXAMINATION: GENERAL: This 60-year-old gentleman is sitting up in the chair. He is grossly obese with round face. Currently, respiratory rate is 18. He is dyspneic during conversation, but not in any distress. He claims this is his usual state of health except that he is a little bit more short of breath than usual. EAR, NOSE, THROAT: Examination reveals his oropharynx to be crowded, Mallampati class 4. No acute infection. NECK: Very large neck but supple. No obvious jugular venous distention is noted and trachea midline. CHEST: Chest wall is grossly obese. Percussion note is not perceptible. Breath sounds are distant, but no wheezes or crepitations are heard at this time. There is no chest wall tenderness. CARDIAC: PMI is not palpable. Rhythm irregular. Heart rate is well controlled. No murmurs. ABDOMEN: Grossly obese and pendulous, but soft and nontender. EXTREMITIES: Bulky with 1+ pitting edema. No evidence of phlebitis. DIAGNOSTIC STUDIES: Chest x-ray, lung volumes are small. Heart is enlarged. No definite pneumonia. Findings of interstitial lung disease mainly in the periphery of the right lung were noted. CT scan of the chest, it shows COPD and also peripheral reticulonodular densities plus scarring in the right upper lobe to some extent on the left side. No definite consolidation or pneumonia is noted. LABORATORY DATA: White cell count 8.2, hemoglobin 17.2, hematocrit 53. Venous blood gas, pH 7.43, pCO2 of 36, PO2 of 62. IMPRESSION: 1. Acute exacerbation of chronic obstructive pulmonary disease/restrictive lung disease/interstitial lung disease. 2. Chronic hypoventilation syndrome/obstructive sleep apnea. 3. Morbid obesity. 4. Chronic atrial fibrillation/diastolic congestive heart failure with some exacerbation at this time. 5. Multiple comorbidities including hypertension, diabetes mellitus, hyperlipidemia, cardiac disease as described above. RECOMMENDATION: 1. I agree with the current treatment. I think he just needs extra diuresis with increased dose of Bumex. Continue DuoNeb updrafts. Continue oxygen 3-4 L/minute to keep O2 saturation just above 90%. 2. He should use BiPAP at nighttime. 3. I will give him IV Solu-Medrol just for 1 day and then prednisone 40 mg a day for 5 days. 4. No need of any antibiotic at this time. 5. The patient is instructed to do deep breathing exercises as much as possible. Thank you very much for asking me to see this patient, I will be glad to follow him along. MD MARIBELL Fuentes/HUMBERTO / [id number]
[2020-07-14] MEDS: guaiFENesin LA 600 MG TAB.ER.12H 1200 MG PO ×2 (11:50→21:36)
[2020-07-14 16:26] LABS: Glucose, Whole Blood 211 mg/dL (60-115)
[2020-07-14 20:23] LABS: Glucose, Whole Blood 258 mg/dL (60-115)
[2020-07-14] MEDS: Azithromycin 500 MG TABLET PO (21:36)
[2020-07-14] MEDS: Atorvastatin Calcium 80 MG TABLET PO (21:36)
[2020-07-15] MEDS: methylPREDNISolone Sod Succ 40 MG/ML VIAL IVPUSH (00:22)
[2020-07-15 00:26] VITALS: PULSE 90; O2SAT 84
[2020-07-15 03:37] VITALS: BP 130/82; PULSE 73; RESP 18; TEMP 36.6; O2SAT 90
[2020-07-15 07:16] VITALS: BP 155/79; PULSE 72; RESP 22; TEMP 36.3; O2SAT 90
[2020-07-15 07:29] LABS: Glucose, Whole Blood 216 mg/dL (60-115)
[2020-07-15 07:40] LABS: INTERNATIONAL NORM RATIO 3.3 (0.9-1.1); Prothrombin Time 40.1 SEC (10.8-13.0)
[2020-07-15] MEDS: Insulin Lispro 100 UNIT/ML 3 ML VIAL SUBCUT ×2 (07:45→11:52)
[2020-07-15] MEDS: guaiFENesin LA 600 MG TAB.ER.12H 1200 MG PO (07:45)
[2020-07-15] MEDS: Metoprolol Tartrate 100 MG TABLET PO (07:45)
[2020-07-15] MEDS: Multivitamin TABLET 1 TAB PO (07:45)
[2020-07-15] MEDS: Docusate Sodium 100 MG CAPSULE PO (07:45)
[2020-07-15] MEDS: Cholecalciferol (Vitamin D3) 25 MCG TABLET 50 MCG PO (07:45)
[2020-07-15] MEDS: Bumetanide 1 MG TABLET 2 MG PO (07:45)
[2020-07-15] MEDS: Losartan Potassium 50 MG TABLET 100 MG PO (07:46)
[2020-07-15] MEDS: amLODIPine Besylate 10 MG TABLET PO (07:46)
[2020-07-15] MEDS: 0.9 % Sodium Chloride Flush 3 ML SYRINGE IVFLUSH (07:46)
[2020-07-15] MEDS: Amiodarone HCL 200 MG TABLET PO (07:46)
[2020-07-15] MEDS: Aspirin Enteric Coated 81 MG TABLET.DR PO (07:46)
[2020-07-15 07:54] VITALS: PULSE 83; O2SAT 89
[2020-07-15] MEDS: Albuterol/Iprat 2.5/0.5MG 3 ML AMPUL.NEB INHALE ×2 (07:54→13:20)
[2020-07-15 11:12] VITALS: BP 117/78; PULSE 67; RESP 19; TEMP 36.1; O2SAT 90
[2020-07-15 11:20] LABS: Glucose, Whole Blood 204 mg/dL (60-115)
[2020-07-15 13:22] VITALS: PULSE 67; O2SAT 90
--- NOTE | 2020-07-15 13:23 | MHC.CM.PN ---
NURSE CARE MANAGEMENT NOTE ELECTRONIC MEDICAL RECORD REVIEWED ALONG WITH CASE DISCUSSED WITH STAFF NURSE AND ON MULTIPLE DISCIPLINARY ROUNDS MET WITH PATIENT OFFERED VNA SERVICES TO HIM AND HE DECLINED HE IS AWARE THAT HE WILL BE DISCHAGRE OME TODAY DISCHARGE PLAN HOME WITH NO NEW SERVICES SELF RESUMPTION OF HIS [facility] AND BIPA AND NEBULISER AND ALL RELATED SUPPLIES self resum tion of his [facility] [place] coumadin [facility] follow uppcp dr maynor riley transportation family friends medicare completed on 07/13/20 all discharge paperwork completee
--- NOTE | 2020-07-15 16:06 | P.DS_ITS ---
DS: Providers Provider Date of Service: 07/15/20 Date of admission: 07/12/20 20:03 Primary care physician: Gregory Thompson MD Consults: 07/12/20 20:03 Consult to Pulmonology Routine Consulting Provider: Niels Lang Reason for consultation: SOB; DIANA; COPD; pt on Bipap DS: Diagnosis Discharge Diagnosis (1) Acute and chronic respiratory failure with hypoxia: Status: Acute (2) Acute diastolic heart failure: Status: Acute (3) SOB (shortness of breath): Status: Acute (4) Cor pulmonale: Status: Acute (5) Chronic hypoxemic respiratory failure: Status: Acute (6) Sleep apnea: Status: Acute (7) Current use of anticoagulant therapy: Status: Acute (8) Hypertension, essential: Status: Acute (9) Atrial fibrillation: Status: Acute (10) Hyperlipidemia: Status: Acute (11) Oxygen dependent: Status: Acute DS: Medications Discharge Medications Home Medications: Home Medications Medication Instructions Recorded Confirmed amiodarone 200 mg tablet 200 mg PO DAILY 03/12/20 07/12/20 aspirin 81 mg tablet,delayed 81 mg PO DAILY 03/12/20 07/12/20 release cholecalciferol (vitamin D3) 50 50 mcg PO DAILY 03/12/20 07/12/20 mcg (2,000 unit) capsule magnesium 200 mg tablet 400 mg PO DAILY tab 03/12/20 07/12/20 metoprolol tartrate 100 mg tablet 100 mg PO BID tab 03/12/20 07/12/20 omega-3 fatty acids-fish oil 360 1 cap PO DAILY 03/12/20 07/12/20 mg-1,200 mg capsule multivitamin 1 tab PO DAILY 07/12/20 07/12/20 rosuvastatin 20 mg PO BEDTIME 07/12/20 07/12/20 vitamin B complex 1 tab PO DAILY 07/12/20 07/12/20 warfarin 10 mg PO MOWEFR 07/12/20 07/12/20 warfarin 12.5 mg PO SUTUTHSA 07/12/20 07/12/20 warfarin mg PO USEASDIRECTD 07/12/20 Previous Rx's Medication Instructions Recorded ipratropium 0.5 mg-albuterol 3 mg 3 ml INHALATION QID 30 Days #360 ml 05/12/20 (2.5 mg base)/3 mL nebulization soln losartan 100 mg tablet 100 mg PO DAILY #90 tab 06/24/20 amlodipine 10 mg tablet 10 mg PO DAILY #90 tab 06/29/20 bumetanide 2 mg PO DAILY #30 tab 07/15/20 guaifenesin [Mucinex] 1,200 mg PO BID #20 tab 07/15/20 ipratropium-albuterol 3 ml INHALATION QID PRN #180 ml 07/15/20 prednisone 20 mg PO DAILY #5 tab 07/15/20 DS: Summary Hospital Course Hospital Course: History of presenting illness Chief Complaint: Shortness of breath 60-year-old male with a past medical history of hypertension, hyperlipidemia, diabetes, AFib on Coumadin, diastolic heart failure, COPD, history of DIANA/question obesity hypoventilation-on home BiPAP at night, chronic respiratory failure on intermittent oxygen while ambulating; presented to the hospital with a chief complaint of shortness of breath. Patient reports that over the past 3-4 days he has been having shortness of breath and has COVID exposure about few days ago but reports he has been vaccinated. Mentions that he also has cough with greenish sputum. Denies any chest pain palpitations. Denies any numbness tingling. Mentioned that he went to his PCP who did an x-ray which noted to be abnormal sent to the ER for CT scan. Denies any numbness tingling. Mentions that he has been on compression stockings for leg swelling also takes Bumex at home. Patient reports that he has not been taking his Bumex over the past 3 4 days. Review of all other systems is negative except mentioned above ER course: Per ER team patient CT scan showed chronic findings, patient was hypoxic requiring supplemental oxygen at 4 L, patient is slightly diminished breath sounds, patient was given Solu-Medrol and nebulizations, patient was placed on BiPAP, patient not in respiratory distress, reported that BiPAP is main for oxygenation, patient was speaking in full sentences. Hospital course 60-year-old male with a past medical history of hypertension, hyperlipidemia, diabetes, COPD, chronic respiratory failure on oxygen 4 L at night and with activity, DIANA on BiPAP at night, diastolic heart failure, AFib on Coumadin presented to the hospital with a chief complaint of shortness of breath/cough and diagnosed to have Acute on chronic hypoxic respiratory failure Secondary to exacerbation of COPD and acute diastolic CHF exacerbation patient treated with Bumex 2 mg, IV steroids updraft treatment and expectorant patient responded well to above treatment CT scan showed reticulonodular densities and scarring that seemed chronic, since shortness of breath has improved with above treatment , BNP normalized, he is being discharged home on 5 more days of by mouth prednisone and Bumex 2 mg daily he has been recommended to continue home inhalers and to have outpatient follow-up with Dr. Lang his primary marine design engineer in 2 weeks Likely his CHF exacerbation was related to missing few days of Bumex. Patient was seen in consultation by Dr. Boucher who agreed with above treatment. In regard to obstructive sleep apnea he has been recommended to continue BiPAP with 4 L of oxygen at night, patient was also noted to have hyperglycemia likely due to steroids he has been recommended to follow a low carbohydrate diet while on p rednisone. History of AFib, continue metoprolol for rate control, advised to hold Coumadin today due to elevated INR of 3.3 recommend to resume Coumadin tomorrow and follow INR closely. Time Spent with Patient Time attestation: Total time spent providing and/or coordinating discharge services: Discharge coordination time: Greater than 30 minutes Quality: Stroke Does the patient have a stroke diagnosis?: No Physical Exam Vital Signs: Vital Signs: Last Vital Signs Temp 97.0 F 07/15/20 11:12 Pulse 67 07/15/20 13:22 Resp 19 07/15/20 11:12 BP 117/78 07/15/20 11:12 Pulse Ox 90 L 07/15/20 11:12 Oxygen Flow Rate 4 07/12/20 14:19 Body Mass Index 46.2 General resting comfortably in no acute distress. Neck supple no JVD. CVS regular rate rhythm, Respiratory lungs good air entry with occasional bilateral rhonchi, no respiratory distress, no use of accessory muscles Gastrointestinal abdomen soft, nontender, distended, bowel sounds audible, no guarding , no rigidity. Extremities no edema. Neuro nonfocal , speech clear. Skin no rash DS: Data Data Completed and Pending Labs on day of discharge: Laboratory Results - last 24 hr 07/14/20 07/14/20 07/15/20 16:21 20:19 07:14 PT INR POC Glucose 211 H 258 H 216 H 07/15/20 07/15/20 07:22 11:13 PT 40.1 H INR 3.3 H POC Glucose 204 H Discharge Plan Discharge Patient Disposition: Home, Self-Care Discharge Diagnosis: Acute On chronic hypoxic respiratory failure COPD exacerbation Acute diastolic congestive heart failure exacerbation Obstructive sleep apnea on BiPAP History of atrial fibrillation on Coumadin Referrals: [facility] outpatient coumadin clinic [Other] - 1 Week Gregory Thompson MD [Primary Care Provider] - 1 Week Discharge Medications: New bumetanide 1 mg Tablet 2 mg PO DAILY Qty: 30 RF: 0 guaifenesin [Mucinex] 600 mg Tablet Extended Release 12hr 1,200 mg PO BID Qty: 20 RF: 0 prednisone 20 mg tablet 20 mg PO DAILY Qty: 5 RF: 0 ipratropium-albuterol 0.5 mg-3 mg(2.5 mg base)/3 mL Solution For Nebulization 3 ml inhalation QID PRN (Reason: Shortness of breath) Qty: 180 RF: 0 Continued ipratropium-albuterol 0.5 mg-3 mg(2.5 mg base)/3 mL solution for nebulization 3 ml inhalation QID 30 Days Qty: 360 RF: 11 losartan 100 mg tablet 100 mg PO DAILY Qty: 90 RF: 0 amlodipine 10 mg tablet 10 mg PO DAILY Qty: 90 RF: 0 rosuvastatin 20 mg tablet 20 mg PO BEDTIME RF: 0 multivitamin Tablet 1 tab PO DAILY RF: 0 vitamin B complex Tablet 1 tab PO DAILY RF: 0 warfarin 5 mg [facility] RF: 0 warfarin 5 mg tablet PO USEASDIRECTD RF: 0 metoprolol tartrate 100 mg tablet 100 mg PO BID RF: 0 amiodarone 200 mg tablet 200 mg PO DAILY RF: 0 aspirin [Adult Low Dose Aspirin] 81 mg tablet,delayed release (DR/EC) 81 mg PO DAILY RF: 0 omega-3 fatty acids-fish oil [Fish Oil] 360-1,200 mg capsule 1 cap PO DAILY RF: 0 magnesium 200 mg tablet 400 mg PO DAILY RF: 0 cholecalciferol (vitamin D3) 50 mcg (2,000 unit) capsule 50 mcg PO DAILY RF: 0 Held warfarin 5 mg tablet 10 mg PO MOWEFR RF: 0 Hold Instructions: Resume on 07/16/20. Hold Coumadin today resume Coumadin home dose from tomorrow, check INR on Sunday Discontinued bumetanide 1 mg tablet 1 mg PO DAILY Qty: 90 RF: 0 Discharge Orders: Discharge Order (Routine); Ordered 07/15/20 Ordered By: Maxi Pickens Diet: low fat, low cholesterol and low salt diet Activity on Discharge: As tolerated Stand Alone Forms: Patient Portal Discharge page Care Plan Goals: Take Bumex 2 mg daily follow low-salt diet take prednisone 20 mg daily for 5 more days continue home oxygen as before take cough medication and DuoNeb updraft as needed Your INR is 3.3 therefore hold dose of Coumadin today, resume Coumadin from to [facility] and check PT INR on Sunday INR goal 2-3 Follow low carbohydrate and low-salt diet If you have a script for Bumex 2 mg do not fill the new script Health Concerns: Congestive heart failure/COPD/obstructive sleep apnea Plan of Treatment: Outpatient follow-up with pulmonology Dr. Lang on July 28, outpatient follow-up with primary care physician in 7-10 days follow up at Coumadin clinic on Sunday to check PT INR Assessment: As above Discharge Date/Time: 07/15/20 14:01
== END 2020-07-15 14:01 | disposition home or self-care (01) | DRG 190 ==
LOC: HO.ED 14:40 → HO.EDOVER 20:40 → HO.S3 21:42
PROVIDERS: Internal Medicine; Student in an Organized Health Care Education/Training Program; Admitting Provider Hospitalist; Emergency Provider Emergency Medicine; PCP Internal Medicine; Visit Provider Hospitalist
DX: J44.1 Chronic obstructive pulmonary disease with (acute) exacerbation (principal); J96.01 Acute respiratory failure with hypoxia; J96.21 Acute and chronic respiratory failure with hypoxia; I50.33 Acute on chronic diastolic (congestive) heart failure; E66.2 Morbid (severe) obesity with alveolar hypoventilation; Z68.42 Body mass index [BMI] 45.0-49.9, adult; I11.0 Hypertensive heart disease with heart failure; E78.5 Hyperlipidemia, unspecified; I48.91 Unspecified atrial fibrillation; E11.9 Type 2 diabetes mellitus without complications; Z99.81 Dependence on supplemental oxygen; Z20.822 Contact with and (suspected) exposure to COVID-19; Z79.01 Long term (current) use of anticoagulants; Z79.52 Long term (current) use of systemic steroids; Z79.82 Long term (current) use of aspirin; Z79.899 Other long term (current) drug therapy
CPT/HCPCS: 0241U; 36415; 71250; 80048; 82947; 83735; 83880; 84484; 85025; 85610; 93005; 94640; 94660; 99285; J0696; J1940; J2920; J2930

== ENCOUNTER → 2020-07-28 09:14 | Outpatient (BNVA) | payer MEDICARE, SELFPAY | PROVIDERS: PCP Internal Medicine; Visit Provider Hospitalist | DX: I27.20 Pulmonary hypertension, unspecified (principal); J96.11 Chronic respiratory failure with hypoxia; J41.0 Simple chronic bronchitis; G47.33 Obstructive sleep apnea (adult) (pediatric) | CPT/HCPCS: 99212 ==

== ENCOUNTER 2020-08-02 09:55 | Outpatient (REF) | payer MEDICARE, SELFPAY ==
[2020-08-02 11:43] LABS: Estimated Average Glucose 134 mg/dL; Hemoglobin A1c % 6.3 %
[2020-08-02 11:56] LABS: Alanine Aminotransferase 28 U/L (0-40); Albumin Level 4.1 g/dL (3.5-5.0); Alkaline Phosphatase 67 U/L (39-117); Anion Gap 12 (12-20); Aspartate Amino Transferase 23 U/L (5-37); Bilirubin Direct 0.4 mg/dL (0.0-0.5); Blood Urea Nitrogen 23 mg/dL (9-16); Calcium 9.4 mg/dL (8.4-10.2); Carbon Dioxide 31 mmol/L (22-29); Chloride 101 mmol/L (96-108); Estimated Glomerular Filt Rate > 60; Glucose Random 148 mg/dL (60-115); Magnesium 1.8 mg/dL (1.6-2.6); Potassium 3.9 mmol/L (3.3-5.1); Sodium 140 mmol/L (135-145); Total Protein 6.5 g/dL (6.5-8.0)
== END 2020-08-02 09:56 | disposition home or self-care (01) ==
LOC: HO.HMGCLDS 09:55
PROVIDERS: PCP Internal Medicine; Visit Provider Hospitalist
DX: E13.9 Other specified diabetes mellitus without complications (principal); I27.20 Pulmonary hypertension, unspecified; Z99.81 Dependence on supplemental oxygen; K21.9 Gastro-esophageal reflux disease without esophagitis; J44.9 Chronic obstructive pulmonary disease, unspecified; I48.91 Unspecified atrial fibrillation; I10 Essential (primary) hypertension
CPT/HCPCS: 36415; 80048; 80076; 83036; 83735

== ENCOUNTER → 2020-08-04 08:54 | Outpatient (BNVA) | payer MEDICARE, SELFPAY | PROVIDERS: PCP Internal Medicine; Visit Provider Internal Medicine | DX: I48.19 Other persistent atrial fibrillation (principal); Z51.81 Encounter for therapeutic drug level monitoring; Z79.01 Long term (current) use of anticoagulants | CPT/HCPCS: 85610; 99211 ==

== ENCOUNTER → 2020-09-01 08:43 | Outpatient (BNVA) | payer MEDICARE, SELFPAY | PROVIDERS: PCP Internal Medicine; Visit Provider Internal Medicine | DX: I48.19 Other persistent atrial fibrillation (principal); Z51.81 Encounter for therapeutic drug level monitoring; Z79.01 Long term (current) use of anticoagulants | CPT/HCPCS: 85610; 99211 ==

== ENCOUNTER → 2020-09-29 08:44 | Outpatient (BNVA) | payer MEDICARE, SELFPAY | PROVIDERS: PCP Internal Medicine; Visit Provider Internal Medicine | DX: I48.19 Other persistent atrial fibrillation (principal); Z51.81 Encounter for therapeutic drug level monitoring; Z79.01 Long term (current) use of anticoagulants | CPT/HCPCS: 85610; 99211 ==

== ENCOUNTER → 2020-10-06 09:09 | Outpatient (BNVA) | payer MEDICARE, SELFPAY | PROVIDERS: PCP Internal Medicine; Visit Provider Internal Medicine ==

== ENCOUNTER → 2020-10-07 08:39 | Outpatient (BNVA) | payer MEDICARE, SELFPAY | PROVIDERS: PCP Internal Medicine; Visit Provider Internal Medicine | DX: I48.19 Other persistent atrial fibrillation (principal); Z51.81 Encounter for therapeutic drug level monitoring; Z79.01 Long term (current) use of anticoagulants | CPT/HCPCS: 85610; 99211 ==

== ENCOUNTER 2020-10-22 09:05 | Outpatient (REF) | payer MEDICARE, SELFPAY ==
[2020-10-22 11:48] LABS: Anion Gap 15 (12-20); Blood Urea Nitrogen 26 mg/dL (9-16); Carbon Dioxide 27 mmol/L (22-29); Chloride 101 mmol/L (96-108); Estimated Glomerular Filt Rate > 60; Glucose Random 136 mg/dL (60-115); Potassium 3.9 mmol/L (3.3-5.1); Sodium 139 mmol/L (135-145)
[2020-10-22 12:21] LABS: B Type Natriuretic Peptide 80 pg/mL (<100)
== END 2020-10-22 09:06 | disposition home or self-care (01) ==
LOC: HO.HMGCLDS 09:05
PROVIDERS: PCP Internal Medicine; Referring Provider Hospitalist; Visit Provider Internal Medicine Cardiovascular Disease
DX: I27.20 Pulmonary hypertension, unspecified (principal); I50.33 Acute on chronic diastolic (congestive) heart failure
CPT/HCPCS: 36415; 80048; 83880

== ENCOUNTER → 2020-10-27 09:11 | Outpatient (BNVA) | payer MEDICARE, SELFPAY | PROVIDERS: PCP Internal Medicine; Visit Provider Hospitalist | DX: J96.11 Chronic respiratory failure with hypoxia (principal); J41.0 Simple chronic bronchitis; I27.20 Pulmonary hypertension, unspecified; G47.33 Obstructive sleep apnea (adult) (pediatric) | CPT/HCPCS: 99212 ==

== ENCOUNTER → 2020-11-02 09:03 | Outpatient (BNVA) | payer MEDICARE, SELFPAY | PROVIDERS: PCP Internal Medicine; Visit Provider Internal Medicine | DX: I48.19 Other persistent atrial fibrillation (principal); Z51.81 Encounter for therapeutic drug level monitoring; Z79.01 Long term (current) use of anticoagulants | CPT/HCPCS: 85610; 99211 ==

== ENCOUNTER 2020-11-04 10:16 | Outpatient (REF) | payer MEDICARE, SELFPAY ==
[2020-11-04 11:48] LABS: Estimated Average Glucose 134 mg/dL; Hemoglobin A1c % 6.3 %
[2020-11-04 11:49] LABS: B Type Natriuretic Peptide 60 pg/mL (<100)
[2020-11-04 11:50] LABS: Anion Gap 13 (12-20); Blood Urea Nitrogen 15 mg/dL (9-16); Calcium 9.2 mg/dL (8.4-10.2); Carbon Dioxide 28 mmol/L (22-29); Chloride 101 mmol/L (96-108); Estimated Glomerular Filt Rate > 60; Glucose Fasting 139 mg/dL (60-99); Potassium 3.9 mmol/L (3.3-5.1); Sodium 138 mmol/L (135-145)
[2020-11-04 14:46] LABS: Creatinine Urine 24.49 mg/dL; Protein/Creatinine Ratio, Ur 0.86 (<0.2); Total Protein Urine Random 21 mg/dL (<12)
== END 2020-11-04 10:17 | disposition home or self-care (01) ==
LOC: HO.HMGCLDS 10:16
PROVIDERS: PCP Internal Medicine; Referring Provider Internal Medicine Hypertension Specialist; Visit Provider Internal Medicine Cardiovascular Disease
DX: E13.9 Other specified diabetes mellitus without complications (principal); R06.00 Dyspnea, unspecified; I50.33 Acute on chronic diastolic (congestive) heart failure; R80.1 Persistent proteinuria, unspecified
CPT/HCPCS: 36415; 80048; 83036; 83880; 84156

== ENCOUNTER → 2020-11-30 09:08 | Outpatient (BNVA) | payer MEDICARE, SELFPAY | PROVIDERS: PCP Internal Medicine; Visit Provider Internal Medicine | DX: I48.19 Other persistent atrial fibrillation (principal); Z51.81 Encounter for therapeutic drug level monitoring; Z79.01 Long term (current) use of anticoagulants | CPT/HCPCS: 85610; 99211 ==

== ENCOUNTER → 2021-01-04 09:19 | Outpatient (BNVA) | payer MEDICARE, SELFPAY | PROVIDERS: PCP Internal Medicine; Visit Provider Internal Medicine | DX: I48.19 Other persistent atrial fibrillation (principal); Z51.81 Encounter for therapeutic drug level monitoring; Z79.01 Long term (current) use of anticoagulants | CPT/HCPCS: 85610; 99211 ==

== ENCOUNTER → 2021-01-18 08:47 | Outpatient (BNVA) | payer MEDICARE, SELFPAY | PROVIDERS: PCP Internal Medicine; Visit Provider Internal Medicine | DX: I48.19 Other persistent atrial fibrillation (principal); Z51.81 Encounter for therapeutic drug level monitoring; Z79.01 Long term (current) use of anticoagulants | CPT/HCPCS: 85610; 99211 ==

== ENCOUNTER → 2021-01-26 09:49 | Outpatient (BNVA) | payer MEDICARE, SELFPAY | PROVIDERS: PCP Internal Medicine; Visit Provider Hospitalist | DX: Z23 Encounter for immunization (principal); I27.20 Pulmonary hypertension, unspecified; J96.11 Chronic respiratory failure with hypoxia; J41.0 Simple chronic bronchitis; G47.33 Obstructive sleep apnea (adult) (pediatric) | CPT/HCPCS: 90471; 90686; 99212 ==

== ENCOUNTER → 2021-02-10 09:19 | Outpatient (BNVA) | payer MEDICARE, SELFPAY | PROVIDERS: PCP Internal Medicine; Visit Provider Internal Medicine | DX: I48.19 Other persistent atrial fibrillation (principal); Z51.81 Encounter for therapeutic drug level monitoring; Z79.01 Long term (current) use of anticoagulants | CPT/HCPCS: 85610; 99211 ==

== ENCOUNTER 2021-02-28 13:28 | Outpatient (REF) | payer MEDICARE, SELFPAY ==
[2021-02-28 16:19] LABS: MANUAL DIFF FLAG NO
[2021-02-28 16:25] LABS: Basophils Percent Auto 0.5 % (0-2); Eosinophils Absolute Auto 0.1 X10*3/uL (0.0-0.4); Eosinophils Percent Auto 1.9 % (0-4); Hematocrit 53.3 % (42.0-52.0); Hemoglobin 17.8 g/dl (14.0-18.0); Imm Gran Abs Auto 0.07 X10*3/uL (0.00-0.03); Lymphocytes Absolute Auto 1.6 X10*3/uL (1.2-4.9); Lymphocytes Percent Auto 21.4 % (20-40); Mean Corpuscular HGB Conc 33.4 g/dl (31.0-36.0); Mean Corpuscular Hemoglobin 30.8 pg (27.0-33.0); Mean Corpuscular Volume 92.4 fL (80.0-98.0); Mean Platelet Volume 10.4 fL (9.4-12.4); Monocytes Absolute Auto 0.9 X10*3/uL (0.1-1.2); Monocytes Percent Auto 12.1 % (2-11); Neutrophils Absolute Auto 4.6 x10*3/uL (2.0-8.3); Neutrophils Percent Auto 63.1 % (45-73); Platelet Count 189 X10*3/uL (160-400); Red Blood Count 5.77 X10*6/uL (4.60-5.80); Red Cell Distribution Width 15.1 % (11.0-16.0); White Blood Count 7.3 X10*3/uL (4.8-10.8)
[2021-02-28 16:48] LABS: Alanine Aminotransferase 31 U/L (0-40); Albumin Level 4.1 g/dL (3.5-5.0); Alkaline Phosphatase 73 U/L (39-117); Anion Gap 13 (12-20); Aspartate Amino Transferase 24 U/L (5-37); Bilirubin Total 0.8 mg/dL (0.0-1.0); Blood Urea Nitrogen 18 mg/dL (9-16); Calcium 9.4 mg/dL (8.4-10.2); Carbon Dioxide 28 mmol/L (22-29); Chloride 106 mmol/L (96-108); Estimated Glomerular Filt Rate > 60; Glucose Random 108 mg/dL (60-115); Potassium 4.3 mmol/L (3.3-5.1); Sodium 143 mmol/L (135-145); Total Protein 6.8 g/dL (6.5-8.0)
[2021-02-28 16:53] LABS: Estimated Average Glucose 137 mg/dL; Hemoglobin A1c % 6.4 %
== END 2021-02-28 13:29 | disposition home or self-care (01) ==
LOC: HO.HMGCLDS 13:28
PROVIDERS: PCP Internal Medicine; Visit Provider Internal Medicine
DX: E13.9 Other specified diabetes mellitus without complications (principal); I27.20 Pulmonary hypertension, unspecified; I50.32 Chronic diastolic (congestive) heart failure; K21.9 Gastro-esophageal reflux disease without esophagitis; R06.00 Dyspnea, unspecified; N28.9 Disorder of kidney and ureter, unspecified
CPT/HCPCS: 36415; 80053; 83036; 85025

== ENCOUNTER → 2021-03-03 09:12 | Outpatient (BNVA) | payer MEDICARE, SELFPAY | PROVIDERS: PCP Internal Medicine; Visit Provider Internal Medicine | DX: I48.19 Other persistent atrial fibrillation (principal); Z51.81 Encounter for therapeutic drug level monitoring; Z79.01 Long term (current) use of anticoagulants | CPT/HCPCS: 85610; 99211 ==

== ENCOUNTER → 2021-03-09 09:31 | Outpatient (BNVA) | payer MEDICARE, SELFPAY | PROVIDERS: PCP Internal Medicine; Visit Provider Internal Medicine | DX: I48.19 Other persistent atrial fibrillation (principal); Z51.81 Encounter for therapeutic drug level monitoring; Z79.01 Long term (current) use of anticoagulants | CPT/HCPCS: 85610; 99211 ==

== ENCOUNTER → 2021-03-18 09:41 | Outpatient (BNVA) | payer MEDICARE, SELFPAY | PROVIDERS: PCP Internal Medicine; Visit Provider Internal Medicine | DX: I48.19 Other persistent atrial fibrillation (principal); Z51.81 Encounter for therapeutic drug level monitoring; Z79.01 Long term (current) use of anticoagulants | CPT/HCPCS: 85610; 99211 ==

== ENCOUNTER → 2021-04-01 09:16 | Outpatient (BNVA) | payer MEDICARE, SELFPAY | PROVIDERS: PCP Internal Medicine; Visit Provider Internal Medicine | DX: I48.19 Other persistent atrial fibrillation (principal); Z51.81 Encounter for therapeutic drug level monitoring; Z79.01 Long term (current) use of anticoagulants | CPT/HCPCS: 85610; 99211 ==

== ENCOUNTER → 2021-04-15 09:20 | Outpatient (BNVA) | payer MEDICARE, SELFPAY | PROVIDERS: PCP Internal Medicine; Visit Provider Internal Medicine | DX: I48.19 Other persistent atrial fibrillation (principal); Z51.81 Encounter for therapeutic drug level monitoring; Z79.01 Long term (current) use of anticoagulants | CPT/HCPCS: 85610; 99211 ==

== ENCOUNTER 2021-05-09 10:41 | Outpatient (REF) | payer MEDICARE, SELFPAY ==
[2021-05-09 12:35] LABS: Alanine Aminotransferase 37 U/L (0-40); Albumin Level 4.3 g/dL (3.5-5.0); Alkaline Phosphatase 61 U/L (39-117); Anion Gap 12 (12-20); Aspartate Amino Transferase 23 U/L (5-37); Bilirubin Direct 0.3 mg/dL (0.0-0.5); Bilirubin Total 0.9 mg/dL (0.0-1.0); Blood Urea Nitrogen 16 mg/dL (9-16); Calcium 9.4 mg/dL (8.4-10.2); Carbon Dioxide 26 mmol/L (22-29); Chloride 104 mmol/L (96-108); Cholesterol 148 mg/dL; Estimated Glomerular Filt Rate > 60; Glucose Random 126 mg/dL (60-115); HDL Cholesterol 35 mg/dL; LDL Cholesterol Calculated 86 mg/dl; Potassium 3.9 mmol/L (3.3-5.1); Sodium 138 mmol/L (135-145); Total Protein 6.8 g/dL (6.5-8.0); Triglycerides 137 mg/dL
[2021-05-09 12:40] LABS: TSH reflex Free T4 1.61 uIU/mL (0.32-4.0)
== END 2021-05-09 10:42 | disposition home or self-care (01) ==
LOC: HO.HMGCLDS 10:41
PROVIDERS: Visit Provider Physician Assistant Medical
DX: I48.91 Unspecified atrial fibrillation (principal)
CPT/HCPCS: 36415; 80048; 80061; 80076; 84443

== ENCOUNTER → 2021-05-13 09:07 | Outpatient (BNVA) | payer MEDICARE, SELFPAY | PROVIDERS: PCP Internal Medicine; Visit Provider Internal Medicine | DX: I48.19 Other persistent atrial fibrillation (principal); Z51.81 Encounter for therapeutic drug level monitoring; Z79.01 Long term (current) use of anticoagulants | CPT/HCPCS: 85610; 99211 ==

== ENCOUNTER → 2021-06-10 09:18 | Outpatient (BNVA) | payer MEDICARE, SELFPAY | PROVIDERS: PCP Internal Medicine; Visit Provider Internal Medicine | DX: I48.19 Other persistent atrial fibrillation (principal); Z79.01 Long term (current) use of anticoagulants; Z51.81 Encounter for therapeutic drug level monitoring | CPT/HCPCS: 85610; 99211 ==

== ENCOUNTER → 2021-06-23 09:51 | Outpatient (BNVA) | payer MEDICARE, SELFPAY | PROVIDERS: PCP Internal Medicine; Visit Provider Hospitalist | DX: I27.20 Pulmonary hypertension, unspecified (principal); J41.0 Simple chronic bronchitis; R06.00 Dyspnea, unspecified | CPT/HCPCS: 99212 ==

== ENCOUNTER → 2021-07-08 08:59 | Outpatient (BNVA) | payer MEDICARE, SELFPAY | PROVIDERS: PCP Internal Medicine; Visit Provider Internal Medicine | DX: I48.19 Other persistent atrial fibrillation (principal); Z79.01 Long term (current) use of anticoagulants; Z51.81 Encounter for therapeutic drug level monitoring | CPT/HCPCS: 85610; 99211 ==

== ENCOUNTER 2021-07-13 08:48 | Outpatient (REF) | payer MEDICARE, SELFPAY ==
--- NOTE | 2021-07-13 10:05 | PFT_ITS ---
INDICATION: COPD. SPIROMETRY: FEV1 to FVC of 56% with an FEV1 of 1.97 L, which is 68% predicted and an FVC of 3.51 L, which is 92% predicted. Post bronchodilators, there was a significant improvement of the FEV1 by 16%. Also to note, the patient has significant small airways disease. Maximum voluntary ventilation 60% predicted. LUNG VOLUMES: Total lung capacity 117% predicted with residual volume 160% predicted. Expiratory reserve volume of 32% predicted. DIFFUSION CAPACITY: DLCO 79% predicted. COMPARISONS: PFTS in 2020. INTERPRETATION: There is an obstructive ventilatory defect consistent with moderate COPD. There was a significant response to bronchodilators noted. Significant small airways disease and also moderate decrease in maximum voluntary ventilation secondary to deconditioning and also worsening dynamic inspiratory capacity. Lung volumes demonstrate a trend of hyperinflation and significant air trapping due to the COPD and a decreased in the expiratory reserve volume secondary to elevated BMI. The patient has a mild diffusion impairment. When compared to 2019, there is a significant decrease in the FVC, significant decrease in the FEV1, significant increase in the total lung capacity, a significant increase in the residual volume, and a significant increase in the diffusion capacity. Clinical correlation warranted. MD WALTER David/HUMBERTO / [id number]
== END 2021-07-13 08:49 | disposition home or self-care (01) ==
LOC: HO.RESP 08:48
PROVIDERS: PCP Internal Medicine; Visit Provider Hospitalist
DX: J44.9 Chronic obstructive pulmonary disease, unspecified (principal)
CPT/HCPCS: 94060; 94727; 94729

== ENCOUNTER → 2021-07-15 09:24 | Outpatient (BNVA) | payer MEDICARE, SELFPAY | PROVIDERS: PCP Internal Medicine; Visit Provider Internal Medicine | DX: I48.19 Other persistent atrial fibrillation (principal); Z79.01 Long term (current) use of anticoagulants; Z51.81 Encounter for therapeutic drug level monitoring | CPT/HCPCS: 85610; 99211 ==

== ENCOUNTER → 2021-08-04 08:47 | Outpatient (BNVA) | payer MEDICARE, SELFPAY | PROVIDERS: PCP Internal Medicine; Visit Provider Internal Medicine | DX: I48.19 Other persistent atrial fibrillation (principal); Z51.81 Encounter for therapeutic drug level monitoring; Z79.01 Long term (current) use of anticoagulants | CPT/HCPCS: 85610; 99211 ==

== ENCOUNTER 2021-08-30 11:23 | Outpatient (REF) | payer MEDICARE, SELFPAY | END 2021-08-30 11:24 | disposition home or self-care (01) | LOC: HO.LAB 11:23 | PROVIDERS: Visit Provider Internal Medicine | DX: I48.19 Other persistent atrial fibrillation (principal); Z51.81 Encounter for therapeutic drug level monitoring; Z79.01 Long term (current) use of anticoagulants | CPT/HCPCS: 36415; 85610; 99212 ==

== ENCOUNTER → 2021-09-01 09:42 | Outpatient (BNVA) | payer MEDICARE, SELFPAY | PROVIDERS: PCP Internal Medicine; Visit Provider Internal Medicine | DX: I48.19 Other persistent atrial fibrillation (principal); Z79.01 Long term (current) use of anticoagulants; Z51.81 Encounter for therapeutic drug level monitoring | CPT/HCPCS: 85610; 99211 ==

== ENCOUNTER → 2021-09-08 09:24 | Outpatient (BNVA) | payer MEDICARE, SELFPAY | PROVIDERS: PCP Internal Medicine; Visit Provider Internal Medicine | DX: I48.19 Other persistent atrial fibrillation (principal); Z79.01 Long term (current) use of anticoagulants; Z51.81 Encounter for therapeutic drug level monitoring | CPT/HCPCS: 85610; 99211 ==

== ENCOUNTER → 2021-09-15 09:21 | Outpatient (BNVA) | payer MEDICARE, SELFPAY | PROVIDERS: PCP Internal Medicine; Visit Provider Internal Medicine | DX: I48.19 Other persistent atrial fibrillation (principal); Z79.01 Long term (current) use of anticoagulants; Z51.81 Encounter for therapeutic drug level monitoring | CPT/HCPCS: 85610; 99211 ==

== ENCOUNTER → 2021-10-06 10:02 | Outpatient (BNVA) | payer MEDICARE, SELFPAY | PROVIDERS: PCP Internal Medicine; Visit Provider Internal Medicine | DX: I48.19 Other persistent atrial fibrillation (principal); Z51.81 Encounter for therapeutic drug level monitoring; Z79.01 Long term (current) use of anticoagulants | CPT/HCPCS: 85610; 99211 ==

== ENCOUNTER → 2021-10-20 10:14 | Outpatient (BNVA) | payer MEDICARE, SELFPAY | PROVIDERS: PCP Internal Medicine; Visit Provider Internal Medicine | DX: I48.19 Other persistent atrial fibrillation (principal); Z79.01 Long term (current) use of anticoagulants; Z51.81 Encounter for therapeutic drug level monitoring | CPT/HCPCS: 85610; 99211 ==

== ENCOUNTER 2021-10-28 09:55 | Outpatient (REF) | payer MEDICARE, SELFPAY ==
[2021-10-28 11:36] LABS: Anion Gap 17 (12-20); Blood Urea Nitrogen 22 mg/dL (9-16); Calcium 9.6 mg/dL (8.4-10.2); Carbon Dioxide 22 mmol/L (22-29); Chloride 106 mmol/L (96-108); Estimated Glomerular Filt Rate > 60; Glucose Random 137 mg/dL (60-115); Potassium 4.2 mmol/L (3.3-5.1); Sodium 141 mmol/L (135-145)
[2021-10-28 12:13] LABS: Creatinine Urine 9.38 mg/dL; Protein/Creatinine Ratio, Ur 0.85 (<0.2); Total Protein Urine Random 8 mg/dL (<12)
== END 2021-10-28 09:56 | disposition home or self-care (01) ==
LOC: HO.HMGCLDS 09:55
PROVIDERS: PCP Internal Medicine; Visit Provider Internal Medicine Hypertension Specialist
DX: R80.0 Isolated proteinuria (principal)
CPT/HCPCS: 36415; 80048; 84156

== ENCOUNTER → 2021-11-10 10:28 | Outpatient (BNVA) | payer MEDICARE, SELFPAY | PROVIDERS: PCP Internal Medicine; Visit Provider Internal Medicine | DX: I48.19 Other persistent atrial fibrillation (principal); Z79.01 Long term (current) use of anticoagulants; Z51.81 Encounter for therapeutic drug level monitoring | CPT/HCPCS: 85610; 99211 ==

== ENCOUNTER → 2021-12-06 10:12 | Outpatient (BNVA) | payer MEDICARE, SELFPAY | PROVIDERS: PCP Internal Medicine; Visit Provider Internal Medicine | DX: I48.19 Other persistent atrial fibrillation (principal); Z79.01 Long term (current) use of anticoagulants; Z51.81 Encounter for therapeutic drug level monitoring | CPT/HCPCS: 85610; 99211 ==

== ENCOUNTER → 2021-12-15 10:18 | Outpatient (BNVA) | payer MEDICARE, SELFPAY | PROVIDERS: PCP Internal Medicine; Visit Provider Internal Medicine | DX: I48.19 Other persistent atrial fibrillation (principal); Z79.01 Long term (current) use of anticoagulants; Z51.81 Encounter for therapeutic drug level monitoring | CPT/HCPCS: 85610; 99211 ==

== ENCOUNTER → 2021-12-20 09:54 | Outpatient (BNVA) | payer MEDICARE, SELFPAY | PROVIDERS: PCP Internal Medicine; Visit Provider Hospitalist | DX: Z23 Encounter for immunization (principal); I27.20 Pulmonary hypertension, unspecified; J41.0 Simple chronic bronchitis; R06.00 Dyspnea, unspecified | CPT/HCPCS: 90471; 90686; 99212 ==

== ENCOUNTER → 2021-12-22 10:18 | Outpatient (BNVA) | payer MEDICARE, SELFPAY | PROVIDERS: PCP Internal Medicine; Visit Provider Internal Medicine | DX: I48.19 Other persistent atrial fibrillation (principal); Z51.81 Encounter for therapeutic drug level monitoring; Z79.01 Long term (current) use of anticoagulants | CPT/HCPCS: 85610; 99211 ==

== ENCOUNTER → 2022-01-05 10:06 | Outpatient (BNVA) | payer MEDICARE, SELFPAY | PROVIDERS: PCP Internal Medicine; Visit Provider Internal Medicine | DX: I48.19 Other persistent atrial fibrillation (principal); Z79.01 Long term (current) use of anticoagulants; Z51.81 Encounter for therapeutic drug level monitoring | CPT/HCPCS: 36415; 85610; 99212 ==

== ENCOUNTER → 2022-01-06 13:11 | Outpatient (BNVA) | payer MEDICARE, SELFPAY | PROVIDERS: PCP Internal Medicine; Visit Provider Internal Medicine | DX: I48.19 Other persistent atrial fibrillation (principal); Z51.81 Encounter for therapeutic drug level monitoring; Z79.01 Long term (current) use of anticoagulants | CPT/HCPCS: 85610; 99211 ==

== ENCOUNTER → 2022-01-10 08:37 | Outpatient (BNVA) | payer MEDICARE, SELFPAY | PROVIDERS: PCP Internal Medicine; Visit Provider Internal Medicine | DX: I48.19 Other persistent atrial fibrillation (principal); Z79.01 Long term (current) use of anticoagulants; Z51.81 Encounter for therapeutic drug level monitoring | CPT/HCPCS: 85610; 99211 ==

== ENCOUNTER → 2022-01-17 10:16 | Outpatient (BNVA) | payer MEDICARE, SELFPAY | PROVIDERS: PCP Internal Medicine; Visit Provider Internal Medicine | DX: I48.19 Other persistent atrial fibrillation (principal); Z79.01 Long term (current) use of anticoagulants; Z51.81 Encounter for therapeutic drug level monitoring | CPT/HCPCS: 85610; 99211 ==

== ENCOUNTER → 2022-01-26 10:28 | Outpatient (BNVA) | payer MEDICARE, SELFPAY | PROVIDERS: PCP Internal Medicine; Visit Provider Internal Medicine | DX: I48.19 Other persistent atrial fibrillation (principal); Z79.01 Long term (current) use of anticoagulants; Z51.81 Encounter for therapeutic drug level monitoring | CPT/HCPCS: 85610; 99211 ==

== ENCOUNTER → 2022-02-09 10:19 | Outpatient (BNVA) | payer MEDICARE, SELFPAY | PROVIDERS: PCP Internal Medicine; Visit Provider Internal Medicine | DX: I48.19 Other persistent atrial fibrillation (principal); Z79.01 Long term (current) use of anticoagulants; Z51.81 Encounter for therapeutic drug level monitoring | CPT/HCPCS: 85610; 99211 ==

== ENCOUNTER → 2022-03-07 10:25 | Outpatient (BNVA) | payer MEDICARE, SELFPAY | PROVIDERS: PCP Internal Medicine; Visit Provider Internal Medicine | DX: I48.19 Other persistent atrial fibrillation (principal); Z79.01 Long term (current) use of anticoagulants; Z51.81 Encounter for therapeutic drug level monitoring | CPT/HCPCS: 85610; 99211 ==

== ENCOUNTER → 2022-03-21 10:30 | Outpatient (BNVA) | payer MEDICARE, SELFPAY | PROVIDERS: PCP Internal Medicine; Visit Provider Internal Medicine | DX: I48.19 Other persistent atrial fibrillation (principal); Z51.81 Encounter for therapeutic drug level monitoring; Z79.01 Long term (current) use of anticoagulants | CPT/HCPCS: 85610; 99211 ==

== ENCOUNTER → 2022-04-06 10:23 | Outpatient (BNVA) | payer MEDICARE, SELFPAY | PROVIDERS: PCP Internal Medicine; Visit Provider Internal Medicine | DX: I48.19 Other persistent atrial fibrillation (principal); Z79.01 Long term (current) use of anticoagulants; Z51.81 Encounter for therapeutic drug level monitoring | CPT/HCPCS: 85610; 99211 ==

== ENCOUNTER → 2022-04-13 10:14 | Outpatient (BNVA) | payer MEDICARE, SELFPAY | PROVIDERS: PCP Internal Medicine; Visit Provider Internal Medicine | DX: I48.19 Other persistent atrial fibrillation (principal); Z79.01 Long term (current) use of anticoagulants; Z51.81 Encounter for therapeutic drug level monitoring | CPT/HCPCS: 85610; 99211 ==

== ENCOUNTER → 2022-04-25 10:15 | Outpatient (BNVA) | payer MEDICARE, SELFPAY | PROVIDERS: PCP Internal Medicine; Visit Provider Internal Medicine | DX: I48.19 Other persistent atrial fibrillation (principal); Z79.01 Long term (current) use of anticoagulants; Z51.81 Encounter for therapeutic drug level monitoring | CPT/HCPCS: 85610; 99211 ==

== ENCOUNTER 2022-05-09 09:56 | Outpatient (REF) | payer MEDICARE, SELFPAY ==
--- NOTE | ~2022-05-09 | XR_ITS ---
EXAMINATION: XR RIBS, RIGHT, PA CHEST CLINICAL INFORMATION: Chest and left rib pain. COMPARISON: Chest CT and chest radiograph both dated 07/12/2020. TECHNIQUE: 3 views of the right ribs were obtained along with a PA view of the chest. A skin marker was placed over the inferior left ribs. FINDINGS: Coarsened interstitial markings are seen with similar distribution and severity. The cardiomediastinal silhouette and pulmonary vasculature are normal. Osseous structures are unremarkable. Ribs are intact. No fractures are identified. XR/XR ribs LT min 3V w CXR1V IMPRESSION: 1. Coarsened interstitial markings appear similar to the previous study and may be baseline for the patient. No acute cardiopulmonary process. 2. No acute left rib fracture.
== END 2022-05-09 09:57 | disposition home or self-care (01) ==
LOC: HO.HMGCX 09:56
PROVIDERS: PCP Internal Medicine; Visit Provider Internal Medicine
DX: S29.9XXA Unspecified injury of thorax, initial encounter (principal)
CPT/HCPCS: 71101

== ENCOUNTER → 2022-05-12 10:10 | Outpatient (REF) | payer MEDICARE, SELFPAY ==
--- NOTE | 2022-05-12 10:20 | ECG_ITS ---
Test Reason : AFIB Blood Pressure : / mmHG Vent. Rate : 064 BPM Atrial Rate : 312 BPM P-R Int : 000 ms QRS Dur : 114 ms QT Int : 414 ms P-R-T Axes : 000 074 025 degrees QTc Int : 427 ms Atrial fibrillation Incomplete right bundle branch block Abnormal ECG When compared with ECG of 12-JUL-2020 18:53, Atrial fibrillation has replaced Sinus rhythm Incomplete right bundle branch block is now Present Referred By: Garret Crowder Electronically Signed By:Alex Bruce
== END ==
LOC: HO.CARD 10:10
PROVIDERS: PCP Internal Medicine; Visit Provider Internal Medicine Cardiovascular Disease
DX: I48.19 Other persistent atrial fibrillation (principal); Z51.81 Encounter for therapeutic drug level monitoring; Z79.01 Long term (current) use of anticoagulants
CPT/HCPCS: 85610; 93005; 99211

== ENCOUNTER → 2022-05-15 09:10 | Outpatient (BNVA) | payer MEDICARE, SELFPAY | PROVIDERS: PCP Internal Medicine; Visit Provider Internal Medicine | DX: I48.19 Other persistent atrial fibrillation (principal); Z51.81 Encounter for therapeutic drug level monitoring; Z79.01 Long term (current) use of anticoagulants | CPT/HCPCS: 85610; 99211 ==

== ENCOUNTER → 2022-05-25 09:59 | Outpatient (BNVA) | payer MEDICARE, SELFPAY | PROVIDERS: PCP Internal Medicine; Visit Provider Internal Medicine | DX: I48.19 Other persistent atrial fibrillation (principal); Z79.01 Long term (current) use of anticoagulants; Z51.81 Encounter for therapeutic drug level monitoring | CPT/HCPCS: 85610; 99211 ==

== ENCOUNTER 2022-06-08 10:11 | Outpatient (REF) | payer MEDICARE, SELFPAY ==
[2022-06-08 11:09] LABS: Prothrombin Time 77.1 SEC (10.0-13.1)
[2022-06-08 11:13] LABS: INTERNATIONAL NORM RATIO 6.2 (0.9-1.1)
== END 2022-06-08 10:12 | disposition home or self-care (01) ==
LOC: HO.LAB 10:11
PROVIDERS: PCP Internal Medicine; Visit Provider Internal Medicine
DX: I48.19 Other persistent atrial fibrillation (principal); Z51.81 Encounter for therapeutic drug level monitoring; Z79.01 Long term (current) use of anticoagulants
CPT/HCPCS: 36415; 85610; 99211

== ENCOUNTER → 2022-06-09 10:53 | Outpatient (BNVA) | payer MEDICARE, SELFPAY | PROVIDERS: PCP Internal Medicine; Visit Provider Internal Medicine | DX: I48.19 Other persistent atrial fibrillation (principal); Z79.01 Long term (current) use of anticoagulants; Z51.81 Encounter for therapeutic drug level monitoring | CPT/HCPCS: 85610; 99211 ==

== ENCOUNTER → 2022-06-13 10:25 | Outpatient (BNVA) | payer MEDICARE, SELFPAY | PROVIDERS: PCP Internal Medicine; Visit Provider Internal Medicine | DX: I48.19 Other persistent atrial fibrillation (principal); Z79.01 Long term (current) use of anticoagulants; Z51.81 Encounter for therapeutic drug level monitoring | CPT/HCPCS: 85610; 99211 ==

== ENCOUNTER → 2022-06-14 10:20 | Outpatient (BNVA) | payer MEDICARE, SELFPAY | PROVIDERS: PCP Internal Medicine; Visit Provider Hospitalist | DX: I27.20 Pulmonary hypertension, unspecified (principal); J41.0 Simple chronic bronchitis; R06.00 Dyspnea, unspecified | CPT/HCPCS: 99212 ==

== ENCOUNTER 2022-06-20 10:34 | Outpatient (REF) | payer MEDICARE, SELFPAY ==
[2022-06-20 11:17] LABS: Prothrombin Time 62.5 SEC (10.0-13.1)
[2022-06-20 11:23] LABS: INTERNATIONAL NORM RATIO 5.1 (0.9-1.1)
== END 2022-06-20 10:35 | disposition home or self-care (01) ==
LOC: HO.LAB 10:34
PROVIDERS: PCP Internal Medicine; Visit Provider Internal Medicine
DX: I48.19 Other persistent atrial fibrillation (principal); Z51.81 Encounter for therapeutic drug level monitoring; Z79.01 Long term (current) use of anticoagulants
CPT/HCPCS: 36415; 85610; 99212

== ENCOUNTER → 2022-06-22 10:06 | Outpatient (BNVA) | payer MEDICARE, SELFPAY | PROVIDERS: PCP Internal Medicine; Visit Provider Internal Medicine | DX: I48.19 Other persistent atrial fibrillation (principal); Z79.01 Long term (current) use of anticoagulants; Z51.81 Encounter for therapeutic drug level monitoring | CPT/HCPCS: 85610; 99211 ==

== ENCOUNTER → 2022-06-27 10:35 | Outpatient (BNVA) | payer MEDICARE, SELFPAY | PROVIDERS: PCP Internal Medicine; Visit Provider Internal Medicine | DX: I48.19 Other persistent atrial fibrillation (principal); Z79.01 Long term (current) use of anticoagulants; Z51.81 Encounter for therapeutic drug level monitoring | CPT/HCPCS: 85610; 99211 ==

== ENCOUNTER → 2022-07-06 10:13 | Outpatient (BNVA) | payer MEDICARE, SELFPAY | PROVIDERS: PCP Internal Medicine; Visit Provider Internal Medicine | DX: I48.19 Other persistent atrial fibrillation (principal); Z79.01 Long term (current) use of anticoagulants; Z51.81 Encounter for therapeutic drug level monitoring | CPT/HCPCS: 85610; 99211 ==

== ENCOUNTER → 2022-07-18 10:09 | Outpatient (BNVA) | payer MEDICARE, SELFPAY | PROVIDERS: PCP Internal Medicine; Visit Provider Internal Medicine | DX: I48.19 Other persistent atrial fibrillation (principal); Z79.01 Long term (current) use of anticoagulants; Z51.81 Encounter for therapeutic drug level monitoring | CPT/HCPCS: 85610; 99211 ==

== ENCOUNTER → 2022-07-27 10:12 | Outpatient (BNVA) | payer MEDICARE, SELFPAY | PROVIDERS: PCP Internal Medicine; Visit Provider Internal Medicine | DX: I48.19 Other persistent atrial fibrillation (principal); Z79.01 Long term (current) use of anticoagulants; Z51.81 Encounter for therapeutic drug level monitoring | CPT/HCPCS: 85610; 99211 ==

== ENCOUNTER → 2022-08-10 10:09 | Outpatient (BNVA) | payer MEDICARE, SELFPAY ==
[2022-08-10 10:10] VITALS: BMI 42.4
== END ==
PROVIDERS: PCP Internal Medicine; Visit Provider Internal Medicine
DX: I48.19 Other persistent atrial fibrillation (principal); Z79.01 Long term (current) use of anticoagulants; Z51.81 Encounter for therapeutic drug level monitoring
CPT/HCPCS: 85610; 99211

== ENCOUNTER 2022-08-22 10:36 | Outpatient (AMB) | payer MEDICARE, SELFPAY ==
[2022-08-10 10:10] VITALS: BMI 42.4
[2022-08-22 10:44] LABS: Prothrombin Time Whole Bld POC 58.5 sec (11.1-13.5); ~PT, ~INR - Anti Coag Clinic 4.9 (0.9-1.1)
--- NOTE | 2022-08-22 10:49 | MHC.OFFVISCO ---
Intake Intake Visit Reasons: Anticoagulation Allergies ciprofloxacin [From CIPRO] Allergy (Intermediate, Verified 08/22/22 10:37) DIFFICULTY BREATHING vancomycin [VANCOMYCIN] Allergy (Intermediate, Verified 08/22/22 10:37) RASH, rash over whole body Medication List - Last Reconciled 08/22/22 by Donna Escobedo, RN albuterol sulfate 90 mcg/actuation 2 puffs PO Q6H PRN amiodarone 200 mg PO DAILY amlodipine 5 mg (1/2 x 10 mg) PO DAILY aspirin (Adult Low Dose Aspirin) 81 mg PO DAILY bumetanide 2 mg PO BID cholecalciferol (vitamin D3) 50 mcg PO DAILY guaifenesin ER (Mucinex) 1,200 mg PO BID PRN losartan 100 mg PO DAILY magnesium 400 mg PO DAILY metoprolol tartrate 100 mg PO BID multivitamin 1 tab PO DAILY omega-3 fatty acids-fish oil 360-1,200 mg (Fish Oil) 1 cap PO DAILY Oxygen Home Use As directed rosuvastatin 20 mg PO BEDTIME 90 days valacyclovir 500 mg PO DAILY vitamin B complex 1 tab PO DAILY vitamin E 200 units PO DAILY warfarin See Protocol 10 mg MWF, 12.5mg TThSS PO use as directed; 10 mg MWF Nursing Note Amb to ACS wearing cont O2 and using cane, feeling well, sts I think it is going to be high as I have not had my usual greens and I have been having cherries Medications and supplements reviewed No other changes in health, diet, medications, or supplements Denies any unusual signs and symptoms of bruising, bleeding Denies any new Chest pain, SOB, or clotting INR: 4.9 above therapeutic range Nutritional guidance given: greens today, if having spinach just a serving today then balance greens and reds in diet Dose: hold warfarin today then take 7.5mg tomorrow then resume usual dosing on ;10mg daily, may need a dosing decrease as has F/U INR: Patient verbalizes understanding of instructions given with accurate read back/ teach back of dosing Anti-Coag Initial Assessment Social Hx Patient Tobacco Use Status: Former Tobacco user Tobacco use type: Cigarette alcohol intake: former Coding Level of Care Code Est Patient Level 1 Diagnoses Current use of anticoagulant therapy Z79.01 Time Spent (min) 15 Assessment & Plan Assessment & Plan (1) Current use of anticoagulant therapy: Code(s): Z79.01 - longterm (current) use of anticoagulants Category: Medical
== END 2022-08-22 11:01 | disposition home or self-care (01) ==
LOC: HO.ACS 10:36
PROVIDERS: PCP Internal Medicine; Visit Provider Internal Medicine
DX: Z79.01 Long term (current) use of anticoagulants (principal)

== ENCOUNTER → 2022-08-22 10:36 | Outpatient (BNVA) | payer MEDICARE, SELFPAY ==
[2022-08-10 10:10] VITALS: BMI 42.4
== END ==
PROVIDERS: PCP Internal Medicine; Visit Provider Internal Medicine
DX: I48.19 Other persistent atrial fibrillation (principal); Z79.01 Long term (current) use of anticoagulants; Z51.81 Encounter for therapeutic drug level monitoring
CPT/HCPCS: 85610; 99211

== ENCOUNTER 2022-08-25 08:48 | Outpatient (AMB) | payer MEDICARE, SELFPAY ==
[2022-08-10 10:10] VITALS: BMI 42.4
--- NOTE | 2022-08-25 08:51 | MHC.OFFVIS ---
Intake Vital Signs 08/25/22 08:52 Height 6 ft 2 in Weight 328 lb 0.765 oz BMI 42.1 BP 110/64 Blood Pressure Location Lt brachial Position Sitting Pulse 60 Intake Visit Reasons: Chronic diastolic (congestive) heart failure Intake Note: NPV Media Planner / Buyer Required: No Accompanied by: Self / Same As Patient Allergies ciprofloxacin [From CIPRO] Allergy (Intermediate, Verified 08/25/22 08:54) DIFFICULTY BREATHING vancomycin [VANCOMYCIN] Allergy (Intermediate, Verified 08/25/22 08:54) RASH, rash over whole body Medication List - Last Reconciled 08/25/22 by Maxwell Enriquez MD albuterol sulfate 90 mcg/actuation 2 puffs PO Q6H PRN amiodarone 200 mg PO DAILY amlodipine 5 mg (1/2 x 10 mg) PO DAILY aspirin (Adult Low Dose Aspirin) 81 mg PO DAILY bumetanide 2 mg PO BID cholecalciferol (vitamin D3) 50 mcg PO DAILY guaifenesin ER (Mucinex) 1,200 mg PO BID PRN losartan 100 mg PO DAILY magnesium 400 mg PO DAILY metoprolol tartrate 100 mg PO BID multivitamin 1 tab PO DAILY omega-3 fatty acids-fish oil 360-1,200 mg (Fish Oil) 1 cap PO DAILY Oxygen Home Use As directed rosuvastatin 20 mg PO BEDTIME 90 days valacyclovir 500 mg PO DAILY vitamin B complex 1 tab PO DAILY vitamin E 200 units PO DAILY warfarin See Protocol 10 mg MWF, 12.5mg TThSS PO use as directed; 10 mg MWF HPI HPI Comments History of Present Illness Details Ketan is here for consultation regarding various cardiac issues. Previously went to [facility]. Multiple medical comorbidities including history of chronic diastolic congestive heart failure, history of mitral valve repair more than 10 years ago, pulmonary hypertension. Per patient, during the time of mitral valve surgery did not get any coronary interventions. He also has pulmonary issues and seems to be on supplemental oxygen. He states within limits of his activity is generally okay. Shortness of breath is very much at his baseline. No anginal-type symptoms. No significant leg swelling. Otherwise, generally getting along. He would like to switch over his care to [facility]. [facility] Medical History (Updated 08/25/22 @ 09:17 by Maxwell Enriquez MD) Atrial fibrillation Chronic hypoxemic respiratory failure COPD (chronic obstructive pulmonary disease) Cor pulmonale Current use of anticoagulant therapy Dyspnea Hyperlipidemia Hypertension, essential Oxygen dependent Pulmonary hypertension Sleep apnea SOB (shortness of breath) Surgical History (Updated 08/25/22 @ 09:06 by Maxwell Enriquez MD) History of carpal tunnel surgery History of colonoscopy History of mitral valve repair History of thumb surgery History of tonsillectomy History of umbilical hernia History of vasectomy Family History Father No problems noted. Mother No problems noted. Brother No problems noted. Sister Mental health disorder Sister No problems noted. Sister No problems noted. Sister No problems noted. Son No problems noted. Daughter No problems noted. Social History Household Members: None Housing: Apartment Do you presently have visiting nurse or other home services: No Alcohol intake: former Patient Tobacco Use Status: Former Tobacco user Tobacco use type: Cigarette Years Smoked: 25 e-Cigarette/Vaping Use: Never Used Second Hand Smoke Exposure: Yes (cigar smoke) Substance Use Type: Marijuana Advance Directives Date on File: 07/12/20 service: No Current occupational status: disabled Cognitive needs: No Hearing needs: No Vision needs: Yes Review of Systems Const Denies weakness ENT Denies dizziness Card Denies chest pain, Denies chest pain with activity, Denies syncope, Denies rapid heart rate, Denies pedal edema, Denies edema, Denies leg edema, Denies lightheadedness, Denies palpitations, Denies dyspnea, Denies dyspnea on exertion and Denies orthopnea Resp Denies cough, Denies dyspnea and Denies dyspnea on exertion GI Denies hematochezia and Denies change in stool character Musc Denies abnormal gait, Denies muscle cramps, Denies muscle weakness, Denies numbness, Denies radiating pain into limb and Denies tingling Neuro Denies abnormal gait, Denies dizziness, Denies syncope, Denies numbness, Denies tingling and Denies weakness Endo Denies palpitations Physical Exam Vital Signs: Last Vital Signs Pulse 60 08/25/22 08:52 BP 110/64 08/25/22 08:52 BMI result Body Mass Index 42.1 Const General: comfortable and no acute distress Orientation/consciousness: patient oriented x3 HEENT Other: Unremarkable Head: Yes normal to inspection Neck Neck: Yes normal visual inspection Chest Chest palpation & inspection: normal inspection of the chest Resp Auscultation: crackles bilateral at the base Cardio Palpation: normal PMI Heart sounds: S1 normal heart sound present, S2 normal heart sound present, no gallops, no murmurs and no rubs GI Palpation (GI): Soft to palpation Back/Spine/Pelvis Other: unremarkable Skin General skin exam: no rashes or lesions noted Neuro General: patient oriented x3 Extrem General: Yes normal to inspection Psych Mental Status: mental status grossly normal Office Procedures EKG Details: EKG with atrial fibrillation at a rate of 60/Min; RSR' pattern; rightward axis. [id number], Complete Assessment & Plan Assessment & Plan (1) Status post mitral valve repair: Code(s): Z98.890 - Other specified postprocedural states Plan: Will need to get an echocardiogram for valvular structure and function. (2) Persistent atrial fibrillation: Code(s): I48.19 - Other persistent atrial fibrillation Plan: With his weight and comorbidities, unlikely to convert to sinus. We can stop the amiodarone. Not sure why he is taking it long-term while in persistent atrial fibrillation. Otherwise, continue anticoagulation. (3) Chronic diastolic (congestive) heart failure: Code(s): I50.32 - Chronic diastolic (congestive) heart failure Plan: Continue diuretics. Last creatinine 0.88. Potassium 4.2. Orders: Orders CA echo transthoracic complete Today Z98.890 - Other specified postprocedural states ECG 3 day holter monitor Today I48.19 - Other persistent atrial fibrillation Coding Level of Care Code New Pt Level 4 (20279) Diagnoses Status post mitral valve repair Z98.890 Persistent atrial fibrillation I48.19 Chronic diastolic (congestive) heart failure I50.32 CPT Codes EKG - CPT: 91994-[id number], Complete ([id number])
[2022-08-25 08:52] VITALS: BP 110/64; PULSE 60; BMI 42.1
== END 2022-08-25 09:18 | disposition home or self-care (01) ==
PROVIDERS: PCP Internal Medicine; Visit Provider Internal Medicine
DX: Z98.890 Other specified postprocedural states (principal); I48.19 Other persistent atrial fibrillation; I50.32 Chronic diastolic (congestive) heart failure
CPT/HCPCS: 93010; 99204

== ENCOUNTER → 2022-08-25 08:48 | Outpatient (BNVA) | payer MEDICARE, SELFPAY ==
[2022-08-10 10:10] VITALS: BMI 42.4
== END ==
PROVIDERS: PCP Internal Medicine; Visit Provider Internal Medicine
DX: I48.19 Other persistent atrial fibrillation (principal); I50.32 Chronic diastolic (congestive) heart failure; Z79.01 Long term (current) use of anticoagulants; Z79.899 Other long term (current) drug therapy
CPT/HCPCS: 93005; 99202

== ENCOUNTER 2022-08-29 10:46 | Outpatient (AMB) | payer MEDICARE, SELFPAY ==
[2022-08-10 10:10] VITALS: BMI 42.4
--- NOTE | 2022-08-29 10:54 | MHC.OFFVISCO ---
Intake Intake Visit Reasons: Anticoagulation Allergies ciprofloxacin [From CIPRO] Allergy (Intermediate, Verified 08/29/22 10:47) DIFFICULTY BREATHING vancomycin [VANCOMYCIN] Allergy (Intermediate, Verified 08/29/22 10:47) RASH, rash over whole body Medication List - Last Reconciled 08/29/22 by Teresa Philippe RN albuterol sulfate 90 mcg/actuation 2 puffs PO Q6H PRN amlodipine 5 mg (1/2 x 10 mg) PO DAILY aspirin (Adult Low Dose Aspirin) 81 mg PO DAILY bumetanide 2 mg PO BID cholecalciferol (vitamin D3) 50 mcg PO DAILY guaifenesin ER (Mucinex) 1,200 mg PO BID PRN losartan 100 mg PO DAILY magnesium 400 mg PO DAILY metoprolol tartrate 100 mg PO BID multivitamin 1 tab PO DAILY omega-3 fatty acids-fish oil 360-1,200 mg (Fish Oil) 1 cap PO DAILY Oxygen Home Use As directed rosuvastatin 20 mg PO BEDTIME 90 days valacyclovir 500 mg PO DAILY vitamin B complex 1 tab PO DAILY vitamin E 200 units PO DAILY warfarin See Protocol 10 mg MWF, 12.5mg TThSS PO use as directed; 10 mg MWF Nursing Note INR 3.1?? out of therapeutic range Medications and supplements reviewed Patient status: pt with cont oxygen, doing pulm rehab twice per week Medications or supplements: amiodarone d/c by cardiology on 08/27/22 Diet: same Denies any signs and symptoms of bleeding or clotting or unusual bruising Bleeding, bruising, clotting discussed Nutritional guidance given: eat greens today Dose: 10mg x 7 F/U INR Date : 09/07/22? Patient verbalizing understanding of instructions given. Anti-Coag Initial Assessment Social Hx Patient Tobacco Use Status: Former Tobacco user Tobacco use type: Cigarette alcohol intake: former Coding Level of Care Code Est Patient Level 1 Diagnoses Current use of anticoagulant therapy Z79.01 Assessment & Plan Assessment & Plan (1) Current use of anticoagulant therapy: Code(s): Z79.01 - residential (current) use of anticoagulants Category: Medical
[2022-08-29 10:55] LABS: Prothrombin Time Whole Bld POC 37.7 sec (11.1-13.5); ~PT, ~INR - Anti Coag Clinic 3.1 (0.9-1.1)
== END 2022-08-29 11:23 | disposition home or self-care (01) ==
LOC: HO.ACS 10:46
PROVIDERS: PCP Internal Medicine; Visit Provider Internal Medicine
DX: Z79.01 Long term (current) use of anticoagulants (principal)

== ENCOUNTER → 2022-08-29 10:46 | Outpatient (BNVA) | payer MEDICARE, SELFPAY ==
[2022-08-10 10:10] VITALS: BMI 42.4
== END ==
PROVIDERS: PCP Internal Medicine; Visit Provider Internal Medicine
DX: I48.19 Other persistent atrial fibrillation (principal); Z79.01 Long term (current) use of anticoagulants; Z51.81 Encounter for therapeutic drug level monitoring
CPT/HCPCS: 85610; 99211

== ENCOUNTER 2022-09-07 10:39 | Outpatient (AMB) | payer MEDICARE, SELFPAY ==
[2022-08-10 10:10] VITALS: BMI 42.4
[2022-09-07 10:53] LABS: Prothrombin Time Whole Bld POC 74.7 sec (11.1-13.5); ~PT, ~INR - Anti Coag Clinic 6.2 (0.9-1.1)
--- NOTE | 2022-09-07 12:29 | MHC.OFFVISCO ---
Intake Intake Visit Reasons: Anticoagulation Allergies ciprofloxacin [From CIPRO] Allergy (Intermediate, Verified 09/07/22 10:46) DIFFICULTY BREATHING vancomycin [VANCOMYCIN] Allergy (Intermediate, Verified 09/07/22 10:46) RASH, rash over whole body Medication List - Last Reconciled 09/07/22 by Donna Escobedo, RN albuterol sulfate 90 mcg/actuation 2 puffs PO Q6H PRN amlodipine 5 mg (1/2 x 10 mg) PO DAILY aspirin (Adult Low Dose Aspirin) 81 mg PO DAILY bumetanide 2 mg PO BID cholecalciferol (vitamin D3) 50 mcg PO DAILY guaifenesin ER (Mucinex) 1,200 mg PO BID PRN losartan 100 mg PO DAILY magnesium 400 mg PO DAILY metoprolol tartrate 100 mg PO BID multivitamin 1 tab PO DAILY omega-3 fatty acids-fish oil 360-1,200 mg (Fish Oil) 1 cap PO DAILY Oxygen Home Use As directed rosuvastatin 20 mg PO BEDTIME 90 days valacyclovir 500 mg PO DAILY vitamin B complex 1 tab PO DAILY vitamin E 200 units PO DAILY warfarin See Protocol 10 mg MWF, 12.5mg TThSS PO use as directed; 10 mg MWF Nursing Note Amb to ACS after pulmonary rehab, cont O2, feeling well, however noteable sunburn, sts he was fishing at the [employer] all day yesterday Medications and supplements reviewed, has been off the amiodarone (an INR raiser) since 08/27 sts he didn't change his diet, or have greens as he wanted to see how it dropped on it own No other changes in health, diet, medications, or supplements Denies any unusual signs and symptoms of bruising, bleeding Denies any new Chest pain, SOB, or clotting INR: our meter 6.2 critical high pt sent to lab when able to get order in (expanse issues) 11:13 computer checked at approx 1145 pending 1215 call to hematology- running it now 1235 TC from lab with INR 5.6 Nutritional guidance given: have serving spinach [place], sts he has not had any ETOH in months and it has been several days since any marijuana gummies Dose: hold warfarin tonight F/U INR:tomorrow Sunday 8/4 pt has run out of his portable Oxygen, no noted resp distress, offered to get wheel chair and wheel him to vehicle, sts no I'M good, I have another tank in the car Patient verbalizes understanding of instructions given with accurate read back/ teach back of dosing and high risk for bleeding Anti-Coag Initial Assessment Social Hx Patient Tobacco Use Status: Former Tobacco user Tobacco use type: Cigarette alcohol intake: former Coding Level of Care Code Est Patient Level 2 Diagnoses Current use of anticoagulant therapy Z79.01 Time Spent (min) 30 Assessment & Plan Assessment & Plan (1) Current use of anticoagulant therapy: Code(s): Z79.01 - halfway (current) use of anticoagulants Category: Medical Orders: Orders Prothrombin Time INR Today 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
== END 2022-09-07 15:40 | disposition home or self-care (01) ==
LOC: HO.ACS 10:39
PROVIDERS: PCP Internal Medicine; Visit Provider Internal Medicine
DX: Z79.01 Long term (current) use of anticoagulants (principal)

== ENCOUNTER 2022-09-07 10:39 | Outpatient (REF) | payer MEDICARE, SELFPAY ==
[2022-08-10 10:10] VITALS: BMI 42.4
[2022-09-07 12:23] LABS: Prothrombin Time 68.6 SEC (11.1-13.3)
[2022-09-07 12:36] LABS: INTERNATIONAL NORM RATIO 5.6 (0.9-1.1)
== END 2022-09-07 10:40 | disposition home or self-care (01) ==
LOC: HO.LAB 10:39
PROVIDERS: PCP Internal Medicine; Visit Provider Internal Medicine
DX: I48.19 Other persistent atrial fibrillation (principal); Z51.81 Encounter for therapeutic drug level monitoring; Z79.01 Long term (current) use of anticoagulants
CPT/HCPCS: 36415; 85610; 99212

== ENCOUNTER 2022-09-08 09:50 | Outpatient (AMB) | payer MEDICARE, SELFPAY ==
[2022-08-10 10:10] VITALS: BMI 42.4
[2022-09-08 09:58] LABS: Prothrombin Time Whole Bld POC 54.1 sec (11.1-13.5); ~PT, ~INR - Anti Coag Clinic 4.5 (0.9-1.1)
--- NOTE | 2022-09-08 10:04 | MHC.OFFVISCO ---
Intake Intake Visit Reasons: Anticoagulation Allergies ciprofloxacin [From CIPRO] Allergy (Intermediate, Verified 09/08/22 09:52) DIFFICULTY BREATHING vancomycin [VANCOMYCIN] Allergy (Intermediate, Verified 09/08/22 09:52) RASH, rash over whole body Medication List - Last Reconciled 09/08/22 by Donna Escobedo, RN albuterol sulfate 90 mcg/actuation 2 puffs PO Q6H PRN amlodipine 5 mg (1/2 x 10 mg) PO DAILY aspirin (Adult Low Dose Aspirin) 81 mg PO DAILY bumetanide 2 mg PO BID cholecalciferol (vitamin D3) 50 mcg PO DAILY guaifenesin ER (Mucinex) 1,200 mg PO BID PRN losartan 100 mg PO DAILY magnesium 400 mg PO DAILY metoprolol tartrate 100 mg PO BID multivitamin 1 tab PO DAILY omega-3 fatty acids-fish oil 360-1,200 mg (Fish Oil) 1 cap PO DAILY Oxygen Home Use As directed rosuvastatin 20 mg PO BEDTIME 90 days valacyclovir 500 mg PO DAILY vitamin B complex 1 tab PO DAILY vitamin E 200 units PO DAILY warfarin See Protocol 10 mg MWF, 12.5mg TThSS PO use as directed; 10 mg MWF Nursing Note Amb to ACS using cane, using O2 cont, feeling well after yesterdays elevated INR Medications and supplements reviewed No changes in health, diet, medications, or supplements Denies any unusual signs and symptoms of bruising, bleeding Denies any new Chest pain, SOB, or clotting INR: 4.5 still above therapeutic range and expected Nutritional guidance given: sts had 2 servings of spinach last night, enc to balance greens now as cont dosing adj, no more spinach and balance greens and reds in diet Dose: hold warfarin tonight, then take 7.5mg on Sunday then resume usual dosing 10mg daily on Sunday; F/U INR:Tuesday 09/12 Patient verbalizes understanding of instructions given with accurate read back/ teach back of dosing Anti-Coag Initial Assessment Social Hx Patient Tobacco Use Status: Former Tobacco user Tobacco use type: Cigarette alcohol intake: former Coding Level of Care Code Est Patient Level 1 Diagnoses Current use of anticoagulant therapy Z79.01 Time Spent (min) 15 Assessment & Plan Assessment & Plan (1) Current use of anticoagulant therapy: Code(s): 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
== END 2022-09-08 10:14 | disposition home or self-care (01) ==
LOC: HO.ACS 09:50
PROVIDERS: PCP Internal Medicine; Visit Provider Internal Medicine
DX: Z79.01 Long term (current) use of anticoagulants (principal)

== ENCOUNTER → 2022-09-08 09:50 | Outpatient (BNVA) | payer MEDICARE, SELFPAY ==
[2022-08-10 10:10] VITALS: BMI 42.4
== END ==
PROVIDERS: PCP Internal Medicine; Visit Provider Internal Medicine
DX: I48.19 Other persistent atrial fibrillation (principal); Z79.01 Long term (current) use of anticoagulants; Z51.81 Encounter for therapeutic drug level monitoring
CPT/HCPCS: 85610; 99211

== ENCOUNTER 2022-09-12 08:35 | Outpatient (AMB) | payer MEDICARE, SELFPAY ==
[2022-08-10 10:10] VITALS: BMI 42.4
[2022-09-12 08:50] LABS: Prothrombin Time Whole Bld POC 36.6 sec (11.1-13.5); ~PT, ~INR - Anti Coag Clinic 3.1 (0.9-1.1)
--- NOTE | 2022-09-12 08:54 | MHC.OFFVISCO ---
Intake Intake Visit Reasons: Anticoagulation Allergies ciprofloxacin [From CIPRO] Allergy (Intermediate, Verified 09/12/22 08:45) DIFFICULTY BREATHING vancomycin [VANCOMYCIN] Allergy (Intermediate, Verified 09/12/22 08:45) RASH, rash over whole body Medication List - Last Reconciled 09/12/22 by Donna Escobedo, RN albuterol sulfate 90 mcg/actuation 2 puffs PO Q6H PRN amlodipine 5 mg (1/2 x 10 mg) PO DAILY aspirin (Adult Low Dose Aspirin) 81 mg PO DAILY bumetanide 2 mg PO BID cholecalciferol (vitamin D3) 50 mcg PO DAILY guaifenesin ER (Mucinex) 1,200 mg PO BID PRN losartan 100 mg PO DAILY magnesium 400 mg PO DAILY metoprolol tartrate 100 mg PO BID multivitamin 1 tab PO DAILY omega-3 fatty acids-fish oil 360-1,200 mg (Fish Oil) 1 cap PO DAILY Oxygen Home Use As directed rosuvastatin 20 mg PO BEDTIME 90 days valacyclovir 500 mg PO DAILY vitamin B complex 1 tab PO DAILY vitamin E 200 units PO DAILY warfarin See Protocol 10 mg MWF, 12.5mg TThSS PO use as directed; 10 mg MWF Nursing Note Amb to ACS using cane feeling ok, using cont O2 humidity is 94% today, its making it tough to breath noted SOB with exertion, pt going to pulm rehab after this appointment Medications and supplements reviewed, recent elevated INR wth dose adjustment No other changes in health, diet, medications, or supplements Denies any unusual signs and symptoms of bruising, bleeding Denies any new Chest pain, SOB, or clotting INR: 3.1 just above therapeutic range Nutritional guidance given: have a dark leafy green today then balance greens and reds in diet Dose: continue usual dosing; 10mg daily F/U INR: 1 week (anticipating a decrease in INR related to stopping amiodarone 08/27) Patient verbalizes understanding of instructions given with accurate read back/ teach back of dosing Anti-Coag Initial Assessment Social Hx Patient Tobacco Use Status: Former Tobacco user Tobacco use type: Cigarette alcohol intake: former Coding Level of Care Code Est Patient Level 1 Diagnoses Current use of anticoagulant therapy Z79.01 Time Spent (min) 15 Assessment & Plan Assessment & Plan (1) Current use of anticoagulant therapy: Code(s): 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
== END 2022-09-12 09:06 | disposition home or self-care (01) ==
LOC: HO.ACS 08:35
PROVIDERS: PCP Internal Medicine; Visit Provider Internal Medicine
DX: Z79.01 Long term (current) use of anticoagulants (principal)

== ENCOUNTER → 2022-09-12 08:35 | Outpatient (BNVA) | payer MEDICARE, SELFPAY ==
[2022-08-10 10:10] VITALS: BMI 42.4
== END ==
PROVIDERS: PCP Internal Medicine; Visit Provider Internal Medicine
DX: I48.91 Unspecified atrial fibrillation (principal); Z79.01 Long term (current) use of anticoagulants; Z51.81 Encounter for therapeutic drug level monitoring
CPT/HCPCS: 85610; 99211

== ENCOUNTER 2022-09-19 10:12 | Outpatient (AMB) | payer MEDICARE, SELFPAY ==
[2022-08-10 10:10] VITALS: BMI 42.4
--- NOTE | 2022-09-19 10:28 | MHC.OFFVISCO ---
Intake Intake Visit Reasons: Anticoagulation Allergies ciprofloxacin [From CIPRO] Allergy (Intermediate, Verified 09/19/22 10:19) DIFFICULTY BREATHING vancomycin [VANCOMYCIN] Allergy (Intermediate, Verified 09/19/22 10:19) RASH, rash over whole body Medication List - Last Reconciled 09/19/22 by Teresa Philippe RN albuterol sulfate 90 mcg/actuation 2 puffs PO Q6H PRN amlodipine 5 mg (1/2 x 10 mg) PO DAILY aspirin (Adult Low Dose Aspirin) 81 mg PO DAILY bumetanide 2 mg PO BID cholecalciferol (vitamin D3) 50 mcg PO DAILY guaifenesin ER (Mucinex) 1,200 mg PO BID PRN losartan 100 mg PO DAILY magnesium 400 mg PO DAILY metoprolol tartrate 100 mg PO BID multivitamin 1 tab PO DAILY omega-3 fatty acids-fish oil 360-1,200 mg (Fish Oil) 1 cap PO DAILY Oxygen Home Use As directed rosuvastatin 20 mg PO BEDTIME 90 days valacyclovir 500 mg PO DAILY vitamin B complex 1 tab PO DAILY vitamin E 200 units PO DAILY warfarin See Protocol 10 mg MWF, 12.5mg TThSS PO use as directed; 10 mg MWF Nursing Note INR 4.9-? out of therapeutic range Medications and supplements reviewed Patient status: pt on cont oxygen, c.o resp diff today due to humidity, goes to pul rehab twice a week pt unsure why inr is elev- denies decreased appetite, denies increased stress, denies new medications, denies tylenol usage, denies etoh denies gummies, denies n/v/d. pill strength verified Medications or supplements: no changes Diet: same Denies any signs and symptoms of bleeding or clotting or unusual bruising Bleeding, bruising, clotting discussed- aware at risk for bleeding- avoid high risk activity Nutritional guidance given: eat greens today and tomm, no reds Dose: hold today, 5mg tomm F/U INR Date : 09/21/22? Patient verbalizing understanding of instructions given. 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
[2022-09-19 10:30] LABS: Prothrombin Time Whole Bld POC 58.3 sec (11.1-13.5); ~PT, ~INR - Anti Coag Clinic 4.9 (0.9-1.1)
== END 2022-09-19 10:37 | disposition home or self-care (01) ==
LOC: HO.ACS 10:12
PROVIDERS: PCP Internal Medicine; Visit Provider Internal Medicine
DX: Z79.01 Long term (current) use of anticoagulants (principal)

== ENCOUNTER → 2022-09-19 10:12 | Outpatient (BNVA) | payer MEDICARE, SELFPAY ==
[2022-08-10 10:10] VITALS: BMI 42.4
== END ==
PROVIDERS: PCP Internal Medicine; Visit Provider Internal Medicine
DX: I48.19 Other persistent atrial fibrillation (principal); Z79.01 Long term (current) use of anticoagulants; Z51.81 Encounter for therapeutic drug level monitoring
CPT/HCPCS: 85610; 99211

== ENCOUNTER 2022-09-21 10:27 | Outpatient (AMB) | payer MEDICARE, SELFPAY ==
[2022-08-10 10:10] VITALS: BMI 42.4
[2022-09-21 10:44] LABS: Prothrombin Time Whole Bld POC 29.9 sec (11.1-13.5); ~PT, ~INR - Anti Coag Clinic 2.5 (0.9-1.1)
--- NOTE | 2022-09-21 10:46 | MHC.OFFVISCO ---
Intake Intake Visit Reasons: Anticoagulation Allergies ciprofloxacin [From CIPRO] Allergy (Intermediate, Verified 09/21/22 10:32) DIFFICULTY BREATHING vancomycin [VANCOMYCIN] Allergy (Intermediate, Verified 09/21/22 10:32) RASH, rash over whole body Medication List - Last Reconciled 09/21/22 by Donna Escobedo RN albuterol sulfate 90 mcg/actuation 2 puffs PO Q6H PRN amlodipine 5 mg (1/2 x 10 mg) PO DAILY aspirin (Adult Low Dose Aspirin) 81 mg PO DAILY bumetanide 2 mg PO BID cholecalciferol (vitamin D3) 50 mcg PO DAILY guaifenesin ER (Mucinex) 1,200 mg PO BID PRN losartan 100 mg PO DAILY magnesium 400 mg PO DAILY metoprolol tartrate 100 mg PO BID multivitamin 1 tab PO DAILY omega-3 fatty acids-fish oil 360-1,200 mg (Fish Oil) 1 cap PO DAILY Oxygen Home Use As directed rosuvastatin 20 mg PO BEDTIME 90 days valacyclovir 500 mg PO DAILY vitamin B complex 1 tab PO DAILY vitamin E 200 units PO DAILY warfarin See Protocol 10 mg MWF, 12.5mg TThSS PO use as directed; 10 mg MWF Nursing Note Amb to ACS using cont O2 feeling ok after pulm rehab and INR elevation of 09/19 Medications and supplements reviewed No changes in health, diet, medications, or supplements Denies any unusual signs and symptoms of bruising, bleeding Denies any new Chest pain, SOB, or clotting INR: 2.5 now in therapeutic range Nutritional guidance given: balance greens and reds in diet, be consistent Dose:pt has been trending up, we have been monitoring for a decrease in INR since Amiodarone DCd, will now decrease weekly dose to 5mg x 2 days and 10mg x 5 days (now 60mg weekly vs 70mg weekly)to start next week F/U INR: 1 week Patient verbalizes understanding of instructions given with accurate read back/ teach back of dosing Anti-Coag Initial Assessment Social Hx Patient Tobacco Use Status: Former Tobacco user Tobacco use type: Cigarette alcohol intake: former Coding Level of Care Code Est Patient Level 1 Diagnoses Current use of anticoagulant therapy Z79.01 Time Spent (min) 15 Results AMB INR Fingerstick AMB INR Fingerstick 2.5 Last Edit by Donna Escobedo RN on 09/21/22 10:42 interface failure Assessment & Plan Assessment & Plan (1) Current use of anticoagulant therapy: Code(s): Z79.01 - penitentiary (current) use of anticoagulants Category: Medical
== END 2022-09-21 10:52 | disposition home or self-care (01) ==
LOC: HO.ACS 10:27
PROVIDERS: PCP Internal Medicine; Visit Provider Internal Medicine
DX: Z79.01 Long term (current) use of anticoagulants (principal)

== ENCOUNTER → 2022-09-21 10:27 | Outpatient (BNVA) | payer MEDICARE, SELFPAY ==
[2022-08-10 10:10] VITALS: BMI 42.4
== END ==
PROVIDERS: PCP Internal Medicine; Visit Provider Internal Medicine
DX: I48.19 Other persistent atrial fibrillation (principal); Z79.01 Long term (current) use of anticoagulants; Z51.81 Encounter for therapeutic drug level monitoring
CPT/HCPCS: 85610; 99211

== ENCOUNTER → 2022-09-22 09:45 | Outpatient (REF) | payer MEDICARE, SELFPAY ==
[2022-08-10 10:10] VITALS: BMI 42.4
--- NOTE | 2022-09-22 09:48 | HM_ITS ---
Conclusion: 1. Patient was monitored for total period of 3 days 2. Baseline was atrial fibrillation with average heart rate of 60 beats per minute 3. No significant pauses noted 4. Frequent PVCs noted with total burden about 2% 5. Patient marked the event 1 time without associated symptoms correlating with atrial fibrillation MTDD
--- NOTE | 2022-09-22 09:48 | CA_ITS ---
Transthoracic Echocardiogram Patient (Last, First, Middle): Ketan Cho R Gender: Male Date of : 1960 Age: 62 Procedure Date: 09/22/2022 Procedure Type: Transthoracic Echocardiogram Location: OP Height: 187.96 cm Weight: 147.42 kg BSA: 2.67 m2 Heart Rate: 62 bpm BP: 102 / 53 mmHg Double End Sewer: SB Referring MD: Maxwell Enriquez MD Director Of Litigation: Osbaldo Chapman MD Symptoms: Z98.890 - Other specified postprocedural states Study Quality: Adequate w contrast ECG Rhythm: Atrial Fibrillation Conclusions: - 1. Normal LV ejection fraction 55-60% 2. Severely dilated right ventricle with reduced RV systolic function 3. Severe biatrial enlargement 4. Thickened mitral valve leaflet, reported status post repair with at least moderate mitral stenosis 5. Moderately elevated adequate systolic pressure 6. No gross pericardial effusion Findings Procedure Information Contrast agent, definity, is being given per protocol without apparent complications. Left Ventricle Normal left ventricular size, thickness, and systolic function. The visually estimated ejection fraction is between 55-60%. There is paradoxical septal motion consistent with post-operative status. Diastolic function is indeterminate on the basis of available data. Right Ventricle Severely increased right ventricular cavity size. There is mildly decreased right ventricular systolic function. Atria The left atrium is severely dilated. There is no evidence of interatrial shunt. The right atrium is severely dilated. Aortic Valve The aortic valve structure and function is likely normal. There is no aortic valve stenosis. There is no aortic valve regurgitation. Mitral Valve There is moderate anterior and severe posterior mitral leaflet thickening. The posterior mitral leaflet is immobile. There is no mitral valve regurgitation. There is moderate to severe mitral valve stenosis. Pulmonic Valve The pulmonic valve is likely normal. Tricuspid Valve There is mild tricuspid valve regurgitation. Moderately elevated right atrial pressure. Mild pulmonary hypertension is present. Great Vessels The pulmonary artery was not well visualized. There is mild dilatation of the ascending aorta measuring 3.80 cm. Venous The inferior vena cava is moderately dilated and collapses greater than 50% with inspiration. Pericardium/Pleural There is no evidence of pericardial effusion. Prior Study Comparison Changes noted compared to prior study dated: 11/24/2019. RV systolic pressure of better on this study Measurements 2D Linear Measurements IVSd: 0.96 0.6-0.9/0.6-1.0 cm LVIDd: 5.55 3.9-5.3/4.2-5.9 cm LVIDd Index: 2.08 2.4-3.2/2.2-3.1 cm/m2 LVIDs: 4.14 2.0-3.6 cm LVPWd: 1.18 0.7-1.1 cm LA Diam: 7.30 2.7-3.8/3.0-4.0 cm LAIDs Index: 2.73 1.5-2.3 cm/m2 LV Mass: 294.42 67-162/88-224 g LV Mass Index: 110.27 43-95/49-115 g/m2 LVOT Diam: 2.30 3.0+(-)1.3 cm 2D Systolic Function EF Teich: 49.00 >55% EF 4C: 44.80 >55% Mitral Valve MV VTI: 0.49 MV Pk Terry: 1.65 MV Mn Terry: 1.03 MV Pk Grad: 11.00 MV Mn Grad: 5.00 MV Pk E: 1.63 E'Lateral: 10.10 E'Medial: 8.54 E/E' Med: 19.10 E/E' Lat: 16.10 MVA Continuity: 1.34 Aortic Valve AoV Pk Terry: 1.22 AoV Pk Grad: 6.00 DIPIKA: 2.64 LVOT LVOT Pk Terry: 0.78 LVOT Mn Terry: 0.54 LVOT VTI: 0.16 LVOT Pk Grad: 2.00 LVOT Mn Grad: 1.00 LVOT Diam: 2.30 LVOT Area: 4.15 Diastolic Function MV Pk E: 1.63 E'Medial: 8.54 E/E' Med: 19.10 E' Laterial: 10.10 E/E' Lat: 16.10 Right Ventricle TAPSE (mm): 16.00 TVS' Terry: 7.33 Tricuspid Valve TR Pk Terry: 3.19 TR Pk Grad: 41.00 RA Press: 8.00 RVSP: 49.00 Great Vessels Aorta Sinus of Valsalva: 3.70 2.0-3.5 cm Ao Asc: 3.80 2.1-3.4 cm Ao Arch: 3.60 Pulmonary Valve PV Pk Terry: 0.76 Peak PV Grad: 2.00 Updated in Other Vendor System with Status of Final Obsaldo Chapman MD electronically signed on 09/23/2022 1:48:06 PM with status of Final
== END ==
LOC: HO.CARD 09:45
PROVIDERS: PCP Internal Medicine; Visit Provider Internal Medicine
DX: I48.19 Other persistent atrial fibrillation (principal)
CPT/HCPCS: 93242; 93306; Q9957

== ENCOUNTER → 2022-09-22 09:48 | Outpatient (BNV) | payer MEDICARE, SELFPAY ==
[2022-08-10 10:10] VITALS: BMI 42.4
== END ==
PROVIDERS: PCP Internal Medicine; Visit Provider Internal Medicine Cardiovascular Disease
DX: I34.2 Nonrheumatic mitral (valve) stenosis (principal)
CPT/HCPCS: 93244; 93306

== ENCOUNTER 2022-09-28 09:51 | Outpatient (AMB) | payer MEDICARE, SELFPAY ==
[2022-08-10 10:10] VITALS: BMI 42.4
--- NOTE | 2022-09-28 10:19 | MHC.OFFVISCO ---
Intake Intake Visit Reasons: Anticoagulation Allergies ciprofloxacin [From CIPRO] Allergy (Intermediate, Verified 09/28/22 10:05) DIFFICULTY BREATHING vancomycin [VANCOMYCIN] Allergy (Intermediate, Verified 09/28/22 10:05) RASH, rash over whole body Medication List - Last Reconciled 09/28/22 by Delphine Holland RN albuterol sulfate 90 mcg/actuation 2 puffs PO Q6H PRN amlodipine 5 mg (1/2 x 10 mg) PO DAILY aspirin (Adult Low Dose Aspirin) 81 mg PO DAILY bumetanide 2 mg PO BID cholecalciferol (vitamin D3) 50 mcg PO DAILY guaifenesin ER (Mucinex) 1,200 mg PO BID PRN losartan 100 mg PO DAILY magnesium 400 mg PO DAILY metoprolol tartrate 100 mg PO BID multivitamin 1 tab PO DAILY omega-3 fatty acids-fish oil 360-1,200 mg (Fish Oil) 1 cap PO DAILY Oxygen Home Use As directed rosuvastatin 20 mg PO BEDTIME 90 days valacyclovir 500 mg PO DAILY vitamin B complex 1 tab PO DAILY vitamin E 200 units PO DAILY warfarin See Protocol 10 mg MWF, 12.5mg TThSS PO use as directed; 10 mg MWF Nursing Note INR 4.7? out of therapeutic range Medications and supplements reviewed Patient status: pt c/o of sore throat x 2 days and has been taking cold medication x 2 days with tylenol which can raise the INR pt enc to test for covid due to his recent exposure with family and medical staff last week Medications or supplements: no other change Diet: good Denies any signs and symptoms of bleeding or clotting or unusual bruising Bleeding, bruising, clotting discussed Nutritional guidance given: resume weekly greens - states he will eat spinach Dose: hold today then try lower dose again 5mg x 2 days/ 10mg x 5 dauys F/U INR Date : 1 week?? Patient verbalizing understanding of instructions given. 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
[2022-09-28 11:01] LABS: Prothrombin Time Whole Bld POC 56.6 sec (11.1-13.5); ~PT, ~INR - Anti Coag Clinic 4.7 (0.9-1.1)
== END 2022-09-28 10:24 | disposition home or self-care (01) ==
LOC: HO.ACS 09:51
PROVIDERS: PCP Internal Medicine; Visit Provider Internal Medicine
DX: Z79.01 Long term (current) use of anticoagulants (principal)

== ENCOUNTER → 2022-09-28 09:51 | Outpatient (BNVA) | payer MEDICARE, SELFPAY ==
[2022-08-10 10:10] VITALS: BMI 42.4
== END ==
PROVIDERS: PCP Internal Medicine; Visit Provider Internal Medicine
DX: I48.19 Other persistent atrial fibrillation (principal); Z51.81 Encounter for therapeutic drug level monitoring; Z79.01 Long term (current) use of anticoagulants
CPT/HCPCS: 85610; 99211

== ENCOUNTER 2022-10-03 10:09 | Outpatient (AMB) | payer MEDICARE, SELFPAY ==
[2022-08-10 10:10] VITALS: BMI 42.4
--- NOTE | 2022-10-03 10:11 | MHC.PC.OV ---
Vital Signs 10/03/22 10:12 Height 6 ft 2 in Weight 319 lb 2 oz BMI 41.0 BP 108/62 Blood Pressure Location Rt brachial Position Sitting Pulse 52 Pulse Source Pulse Oximeter Pulse Oximetry (%) 93 Oxygen Delivery Method Nasal Cannula Intake Visit Reasons: 6m follow up Allergies ciprofloxacin [From CIPRO] Allergy (Intermediate, Verified 10/03/22 10:14) DIFFICULTY BREATHING vancomycin [VANCOMYCIN] Allergy (Intermediate, Verified 10/03/22 10:14) RASH, rash over whole body Medication List - Last Reconciled 10/03/22 by Gregory Thompson MD albuterol sulfate 90 mcg/actuation 2 puffs PO Q6H PRN amlodipine 5 mg (1/2 x 10 mg) PO DAILY aspirin (Adult Low Dose Aspirin) 81 mg PO DAILY bumetanide 2 mg PO BID cholecalciferol (vitamin D3) 50 mcg PO DAILY guaifenesin ER (Mucinex) 1,200 mg PO BID PRN losartan 100 mg PO DAILY magnesium 400 mg PO DAILY metoprolol tartrate 100 mg PO BID multivitamin 1 tab PO DAILY omega-3 fatty acids-fish oil 360-1,200 mg (Fish Oil) 1 cap PO DAILY Oxygen Home Use As directed rosuvastatin 20 mg PO BEDTIME 90 days valacyclovir 500 mg PO DAILY vitamin B complex 1 tab PO DAILY vitamin E 200 units PO DAILY warfarin See Protocol 10 mg MWF, 12.5mg TThSS PO use as directed; 10 mg MWF Tobacco use date assessed: 10/03/22 Dental Screening Dental Screen Date: 10/03/22 Did you have a dental visit in the last 12 months?: No Did you have a dental problem in the last 6 months where you did not have access to dental care?: No Was dental information given to patient?: No HPI 6m follow up HPI Details Patient is a 62-year-old gentleman came in today for his regular follow-up appointment Cardiology note from 10/26/2022 reviewed patient has seen Dr. Enriquez Patient has chronic diastolic congestive heart clear and history of mitral valve repair more than 10 years ago, pulmonary hypertension. 3 L of oxygen , he is suppose to be on 4 L , but he says his miller dont last very long then He also have a severe COPD and is oxygen dependent currently seeing interactive digital media specialist [facility]. His pulse ox is 89 on Echocardiogram was ordered during cardiology visit to further evaluate the cardiac status His lungs are clear today and there is minimal swelling on his ankles. Hypertension: Blood pressure is well controlled, patient is on amlodipine 5 mg and losartan 100 mg along with metoprolol 100 mg b.i.d. Diabetes: Diet controlled, due for hemoglobin A1c check Lipid disorder: Continue rosuvastatin 20 mg Morbid obesity: Patient have difficulty losing weight due to severe COPD, however he is trying and would like to have consultation by bariatric surgery he is interested in gastric balloon. We will find out if they are still offering that procedure at [facility] weight Loss program. And we will book appointment for the patient. Providers patient is seeing are Dr. Lang interactive digital media specialist for COPD He was seeing Dr. [facility] Cardiology, now seeing Dr. Enriquez [facility] transplant associates for chronic kidney disease Follow-up 4 months Labs are needed today [facility] Medical History Atrial fibrillation Chronic hypoxemic respiratory failure COPD (chronic obstructive pulmonary disease) Cor pulmonale Current use of anticoagulant therapy Dyspnea Hyperlipidemia Hypertension, essential Oxygen dependent Pulmonary hypertension Sleep apnea SOB (shortness of breath) Surgical History History of carpal tunnel surgery History of colonoscopy History of mitral valve repair History of thumb surgery History of tonsillectomy History of umbilical hernia History of vasectomy Family History Father No problems noted. Mother No problems noted. Brother No problems noted. Sister Mental health disorder Sister No problems noted. Sister No problems noted. Sister No problems noted. Son No problems noted. Daughter No problems noted. Social History Household Members: None Housing: Apartment Do you presently have visiting nurse or other home services: No Alcohol intake: former Patient Tobacco Use Status: Former Tobacco user Tobacco use type: Cigarette Years Smoked: 25 e-Cigarette/Vaping Use: Never Used Second Hand Smoke Exposure: Yes (cigar smoke) Substance Use Type: Marijuana Advance Directives Date on File: 07/12/20 service: No Current occupational status: disabled Cognitive needs: No Hearing needs: No Vision needs: Yes Questionnaire Thrive Questionnaire Date Thrive assessed: 04/04/22 AUDIT C Alcohol Use Questionnaire (AUDIT-C) 1. How often do you have a drink containing alcohol?: Never 3. How often do you have six or more drinks on one occasion?: Never Total Score: 0 Score Reviewed/Action Taken: Yes NIKKO-7 AMB Questionnaire NIKKO-7 Date NIKKO - 7 assessed: 04/04/22 Source: Developed by Drs. Anuj Donohue, Beth Ornelas, Joshua Dodge and colleagues, with an educational saturnino from [employer]. Review of Systems Const Denies chills and Denies fever(s) ENT Denies epistaxis and Denies nasal discharge Card Denies chest pain Resp Denies chest congestion, Denies cough and Denies hemoptysis GI Denies diarrhea and Denies nausea Skin/Breast Denies rash Neuro Reports no additional complaints Psych Reports no additional complaints Endo Reports no additional complaints Physical exam (Primary Care) Vital Signs: Last Vital Signs Pulse 52 10/03/22 10:12 BP 108/62 10/03/22 10:12 Pulse Ox 93 10/03/22 10:12 Oxygen Delivery Method Nasal Cannula 10/03/22 10:12 BMI result Body Mass Index 41.0 Tobacco/Smoking Status: Tobacco use Status Tobacco use date assessed 10/03/22 10/03/22 10:15 Patient Tobacco Use Status Former Tobacco user 10/03/22 10:15 Tobacco use type Cigarette 10/03/22 10:15 e-Cigarette/Vaping Use Never Used 10/03/22 10:15 Thrive Assessment: Date of Thrive Assessment Date Thrive assessed 04/04/22 10/03/22 10:15 Const General: cooperative, comfortable and no acute distress Orientation/consciousness: patient oriented x3 [facility] Head: Yes normocephalic Eyes General: appearance normal, both eyes and all related structures Neck Neck: Yes supple Resp Other: Lungs are clear to auscultation posteriorly Effort & Inspection: no cough and no stridor Cardio Heart sounds: S1 normal heart sound present and S2 normal heart sound present Skin General skin exam: turgor normal Neuro General: patient oriented x3, tone normal and moves all extremities Extrem Other: Minimal edema both ankles Assessment and Plan Assessment & Plan (1) Diabetes 1.5, managed as type 2: Code(s): E13.9 - Other specified diabetes mellitus without complications (2) Morbid obesity due to excess calories: Code(s): E66.01 - Morbid (severe) obesity due to excess calories (3) Diastolic heart failure: Code(s): I50.30 - Unspecified diastolic (congestive) heart failure Qualifiers: Heart failure chronicity: chronic Qualified Code(s): I50.32 - Chronic diastolic (congestive) heart failure (4) Current use of anticoagulant therapy: Code(s): 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 (5) Oxygen dependent: Code(s): Z99.81 - Dependence on supplemental oxygen (6) COPD (chronic obstructive pulmonary disease): Code(s): J44.9 - Chronic obstructive pulmonary disease, unspecified Qualifiers: COPD type: chronic bronchitis Chronic bronchitis type: simple Qualified Code(s): J41.0 - Simple chronic bronchitis (7) Persistent atrial fibrillation: Code(s): I48.19 - Other persistent atrial fibrillation (8) Nephropathy: Code(s): N28.9 - Disorder of kidney and ureter, unspecified (9) Pulmonary hypertension: Code(s): I27.20 - Pulmonary hypertension, unspecified (10) Aortic root dilation: Code(s): I77.810 - Thoracic aortic ectasia (11) Chronic GERD: Code(s): K21.9 - Gastro-esophageal reflux disease without esophagitis Plan Patient is a 62-year-old gentleman came in today for his regular follow-up appointment Cardiology note from 10/26/2022 reviewed patient has seen Dr. Enriquez Patient has chronic diastolic congestive heart clear and history of mitral valve repair more than 10 years ago, pulmonary hypertension. 3 L of oxygen , he is suppose to be on 4 L , but he says his miller dont last very long then He also have a severe COPD and is oxygen dependent currently seeing interactive digital media specialist [facility]. His pulse ox is 89 on Echocardiogram was ordered during cardiology visit to further evaluate the cardiac status His lungs are clear today and there is minimal swelling on his ankles. Hypertension: Blood pressure is well controlled, patient is on amlodipine 5 mg and losartan 100 mg along with metoprolol 100 mg b.i.d. Diabetes: Diet controlled, due for hemoglobin A1c check Lipid disorder: Continue rosuvastatin 20 mg Morbid obesity: Patient have difficulty losing weight due to severe COPD, however he is trying and would like to have consultation by bariatric surgery he is interested in gastric balloon. We will find out if they are still offering that procedure at [facility] weight Loss program. And we will book appointment for the patient. Providers patient is seeing are Dr. Lang interactive digital media specialist for COPD He was seeing Dr. [facility] Cardiology, now seeing Dr. Enriquez [facility]al and transplant associates for chronic kidney disease Follow-up 3 months Labs are needed today Orders: Orders Comprehensive Met. Panel Today E13.9 - Other specified diabetes mellitus without complications, E66.01 - Morbid (severe) obesity due to excess calories, I27.20 - Pulmonary hypertension, unspecified, I48.19 - Other persistent atrial fibrillation, I50.30 - Unspecified diastolic (congestive) heart failure, I77.810 - Thoracic aortic ectasia, J44.9 - Chronic obstructive pulmonary disease, unspecified, K21.9 - Gastro-esophageal reflux disease without esophagitis, N28.9 - Disorder of kidney and ureter, unspecified, Z79.01 - retirement (current) use of anticoagulants, Z99.81 - Dependence on supplemental oxygen LDL Cholesterol Direct Today E13.9 - Other specified diabetes mellitus without complications, E66.01 - Morbid (severe) obesity due to excess calories, I27.20 - Pulmonary hypertension, unspecified, I48.19 - Other persistent atrial fibrillation, I50.30 - Unspecified diastolic (congestive) heart failure, I77.810 - Thoracic aortic ectasia, J44.9 - Chronic obstructive pulmonary disease, unspecified, K21.9 - Gastro-esophageal reflux disease without esophagitis, N28.9 - Disorder of kidney and ureter, unspecified, Z79.01 - retirement (current) use of anticoagulants, Z99.81 - Dependence on supplemental oxygen TSH reflex Free T4 Today E13.9 - Other specified diabetes mellitus without complications, E66.01 - Morbid (severe) obesity due to excess calories, I27.20 - Pulmonary hypertension, unspecified, I48.19 - Other persistent atrial fibrillation, I50.30 - Unspecified diastolic (congestive) heart failure, I77.810 - Thoracic aortic ectasia, J44.9 - Chronic obstructive pulmonary disease, unspecified, K21.9 - Gastro-esophageal reflux disease without esophagitis, N28.9 - Disorder of kidney and ureter, unspecified, 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, Z99.81 - Dependence on supplemental oxygen Complete Blood Count Auto Diff Today E13.9 - Other specified diabetes mellitus without complications, E66.01 - Morbid (severe) obesity due to excess calories, I27.20 - Pulmonary hypertension, unspecified, I48.19 - Other persistent atrial fibrillation, I50.30 - Unspecified diastolic (congestive) heart failure, I77.810 - Thoracic aortic ectasia, J44.9 - Chronic obstructive pulmonary disease, unspecified, K21.9 - Gastro-esophageal reflux disease without esophagitis, N28.9 - Disorder of kidney and ureter, unspecified, Z79.01 - retirement (current) use of anticoagulants, Z99.81 - Dependence on supplemental oxygen Hemoglobin A1c Today E13.9 - Other specified diabetes mellitus without complications Coding Level of Care Code Est Pt Level 5 (29873) Diagnoses Diabetes 1.5, managed as type 2 E13.9 Morbid obesity due to excess calories E66.01 Diastolic heart failure I50.32 Heart failure chronicity: chronic Current use of anticoagulant therapy Z79.01 Oxygen dependent Z99.81 COPD (chronic obstructive pulmonary disease) J41.0 COPD type: chronic bronchitis Chronic bronchitis type: simple Persistent atrial fibrillation I48.19 Nephropathy N28.9 Pulmonary hypertension I27.20 Aortic root dilation I77.810 Chronic GERD K21.9 Time Spent (min) 45 Comment 5 preparation/20 with patient/20 charting and coordination of care
[2022-10-03 10:12] VITALS: BP 108/62; PULSE 52; O2SAT 93; BMI 41.0
== END 2022-10-03 10:33 | disposition home or self-care (01) ==
PROVIDERS: Visit Provider Internal Medicine
DX: E13.9 Other specified diabetes mellitus without complications (principal); E66.01 Morbid (severe) obesity due to excess calories; Z79.01 Long term (current) use of anticoagulants; Z68.41 Body mass index [BMI] 40.0-44.9, adult; I50.32 Chronic diastolic (congestive) heart failure; J41.0 Simple chronic bronchitis; I48.19 Other persistent atrial fibrillation; I27.20 Pulmonary hypertension, unspecified; I77.810 Thoracic aortic ectasia; K21.9 Gastro-esophageal reflux disease without esophagitis; Z99.81 Dependence on supplemental oxygen; N28.9 Disorder of kidney and ureter, unspecified
CPT/HCPCS: 99215

== ENCOUNTER 2022-10-03 10:38 | Outpatient (REF) | payer MEDICARE, SELFPAY ==
[2022-08-10 10:10] VITALS: BMI 42.4
[2022-10-03 13:48] LABS: MANUAL DIFF FLAG NO
[2022-10-03 13:54] LABS: Basophils Percent Auto 0.5 % (0-2); Eosinophils Absolute Auto 0.1 X10*3/uL (0.0-0.4); Eosinophils Percent Auto 1.3 % (0-4); Hematocrit 57.5 % (42.0-52.0); Hemoglobin 19.1 g/dl (14.0-18.0); Imm Gran Abs Auto 0.09 X10*3/uL (0.00-0.03); Imm Gran Pct Auto 1.2 % (0.0-0.4); Lymphocytes Absolute Auto 2.1 X10*3/uL (1.2-4.9); Lymphocytes Percent Auto 28.3 % (20-40); Mean Corpuscular HGB Conc 33.2 g/dl (31.0-36.0); Mean Corpuscular Hemoglobin 30.8 pg (27.0-33.0); Mean Corpuscular Volume 92.6 fL (80.0-98.0); Mean Platelet Volume 10.4 fL (9.4-12.4); Monocytes Absolute Auto 0.9 X10*3/uL (0.1-1.2); Monocytes Percent Auto 12.3 % (2-11); Neutrophils Absolute Auto 4.2 x10*3/uL (2.0-8.3); Neutrophils Percent Auto 56.4 % (45-73); Platelet Count 207 X10*3/uL (160-400); Red Blood Count 6.21 X10*6/uL (4.60-5.80); White Blood Count 7.5 X10*3/uL (4.8-10.8)
[2022-10-03 14:12] LABS: Estimated Average Glucose 123 mg/dL; Hemoglobin A1c % 5.9 % (<6.0)
[2022-10-03 14:26] LABS: Alanine Aminotransferase 29 U/L (0-40); Albumin Level 4.3 g/dL (3.5-5.0); Alkaline Phosphatase 78 U/L (39-117); Anion Gap 13 (12-20); Aspartate Amino Transferase 22 U/L (5-37); Blood Urea Nitrogen 19 mg/dL (9-16); Calcium 10.2 mg/dL (8.4-10.2); Carbon Dioxide 26 mmol/L (22-29); Chloride 105 mmol/L (96-108); Estimated Glomerular Filt Rate > 60; Glucose Random 103 mg/dL (60-115); Potassium 4.3 mmol/L (3.3-5.1); Sodium 140 mmol/L (135-145); Total Protein 7.2 g/dL (6.5-8.0)
[2022-10-03 15:03] LABS: TSH reflex Free T4 2.94 uIU/mL (0.32-4.0)
[2022-10-04 16:59] LABS: LDL Cholesterol Direct 75 mg/dL (<100)
== END 2022-10-03 10:39 | disposition home or self-care (01) ==
LOC: HO.HMGCLDS 10:38
PROVIDERS: PCP Internal Medicine; Visit Provider Internal Medicine
DX: E13.9 Other specified diabetes mellitus without complications (principal); E66.01 Morbid (severe) obesity due to excess calories; I50.30 Unspecified diastolic (congestive) heart failure; J44.9 Chronic obstructive pulmonary disease, unspecified; I48.19 Other persistent atrial fibrillation; N28.9 Disorder of kidney and ureter, unspecified; I27.20 Pulmonary hypertension, unspecified; I77.810 Thoracic aortic ectasia; K21.9 Gastro-esophageal reflux disease without esophagitis; Z79.01 Long term (current) use of anticoagulants; Z99.81 Dependence on supplemental oxygen
CPT/HCPCS: 36415; 80053; 83036; 83721; 84443; 85025

== ENCOUNTER 2022-10-05 10:16 | Outpatient (AMB) | payer MEDICARE, SELFPAY ==
[2022-08-10 10:10] VITALS: BMI 42.4
[2022-10-05 10:53] LABS: Prothrombin Time Whole Bld POC 43.1 sec (11.1-13.5); ~PT, ~INR - Anti Coag Clinic 3.6 (0.9-1.1)
--- NOTE | 2022-10-05 10:59 | MHC.OFFVISCO ---
Intake Intake Visit Reasons: Anticoagulation Allergies ciprofloxacin [From CIPRO] Allergy (Intermediate, Verified 10/05/22 10:45) DIFFICULTY BREATHING vancomycin [VANCOMYCIN] Allergy (Intermediate, Verified 10/05/22 10:45) RASH, rash over whole body Medication List - Last Reconciled 10/05/22 by Delphine Holland RN albuterol sulfate 90 mcg/actuation 2 puffs PO Q6H PRN amlodipine 5 mg (1/2 x 10 mg) PO DAILY aspirin (Adult Low Dose Aspirin) 81 mg PO DAILY bumetanide 2 mg PO BID cholecalciferol (vitamin D3) 50 mcg PO DAILY guaifenesin ER (Mucinex) 1,200 mg PO BID PRN losartan 100 mg PO DAILY magnesium 400 mg PO DAILY metoprolol tartrate 100 mg PO BID multivitamin 1 tab PO DAILY omega-3 fatty acids-fish oil 360-1,200 mg (Fish Oil) 1 cap PO DAILY Oxygen Home Use As directed rosuvastatin 20 mg PO BEDTIME 90 days valacyclovir 500 mg PO DAILY vitamin B complex 1 tab PO DAILY vitamin E 200 units PO DAILY warfarin See Protocol 10 mg MWF, 12.5mg TThSS PO use as directed; 10 mg MWF Nursing Note INR 3.6 out of therapeutic range Medications and supplements reviewed Patient status: recovered from cold symptoms, no longer taking tylenol Medications or supplements: no changes Diet: good - had cucumbers this am Denies any signs and symptoms of bleeding or clotting or unusual bruising Bleeding, bruising, clotting discussed Nutritional guidance given: enc to eat cooked greens to lower the INR more- he stated that he has spinach to cook up Dose: try dose again 5mg x 2 days/ 10mg x 5 days F/U INR Date: 12 days same day as resp rehab?? Patient verbalizing understanding of instructions given. Anti-Coag Initial Assessment Social Hx Patient Tobacco Use Status: Former Tobacco user Tobacco use type: Cigarette alcohol intake: former Coding Level of Care Code Est Patient Level 1 Diagnoses Current use of anticoagulant therapy Z79.01 Assessment & Plan Assessment & Plan (1) Current use of anticoagulant therapy: Code(s): Z79.01 - retirement (current) use of anticoagulants Category: Medical
== END 2022-10-05 11:02 | disposition home or self-care (01) ==
LOC: HO.ACS 10:16
PROVIDERS: PCP Internal Medicine; Visit Provider Internal Medicine
DX: Z79.01 Long term (current) use of anticoagulants (principal)

== ENCOUNTER → 2022-10-05 10:16 | Outpatient (BNVA) | payer MEDICARE, SELFPAY ==
[2022-08-10 10:10] VITALS: BMI 42.4
== END ==
PROVIDERS: PCP Internal Medicine; Visit Provider Internal Medicine
DX: I48.19 Other persistent atrial fibrillation (principal); Z79.01 Long term (current) use of anticoagulants; Z51.81 Encounter for therapeutic drug level monitoring
CPT/HCPCS: 85610; 99211

== ENCOUNTER 2022-10-19 10:13 | Outpatient (AMB) | payer MEDICARE, SELFPAY ==
[2022-08-10 10:10] VITALS: BMI 42.4
[2022-10-19 10:27] LABS: Prothrombin Time Whole Bld POC 38.9 sec (11.1-13.5); ~PT, ~INR - Anti Coag Clinic 3.2 (0.9-1.1)
--- NOTE | 2022-10-19 10:31 | MHC.OFFVISCO ---
Intake Intake Visit Reasons: Anticoagulation Allergies ciprofloxacin [From CIPRO] Allergy (Intermediate, Verified 10/19/22 10:20) DIFFICULTY BREATHING vancomycin [VANCOMYCIN] Allergy (Intermediate, Verified 10/19/22 10:20) RASH, rash over whole body Medication List - Last Reconciled 10/19/22 by Donna Escobedo, RN albuterol sulfate 90 mcg/actuation 2 puffs PO Q6H PRN amlodipine 5 mg (1/2 x 10 mg) PO DAILY aspirin (Adult Low Dose Aspirin) 81 mg PO DAILY bumetanide 2 mg PO BID cholecalciferol (vitamin D3) 50 mcg PO DAILY guaifenesin ER (Mucinex) 1,200 mg PO BID PRN losartan 100 mg PO DAILY magnesium 400 mg PO DAILY metoprolol tartrate 100 mg PO BID multivitamin 1 tab PO DAILY omega-3 fatty acids-fish oil 360-1,200 mg (Fish Oil) 1 cap PO DAILY Oxygen Home Use As directed rosuvastatin 20 mg PO BEDTIME 90 days valacyclovir 500 mg PO DAILY vitamin B complex 1 tab PO DAILY vitamin E 200 units PO DAILY warfarin See Protocol 10 mg MWF, 12.5mg TThSS PO use as directed; 10 mg MWF Nursing Note Amb to ACS, wearing cont O2, feeling tired , sts feeling more SOB today, sts he cut his pulm rehab short today just not feeling it Medications and supplements reviewed No changes in health, diet, medications, or supplements Denies any unusual signs and symptoms of bruising, bleeding Denies any new Chest pain, SOB, or clotting INR: 3.2 just above therapeutic range Nutritional guidance given: balance greens and reds in diet Dose: continue usual dosing; 5mg x 2 days and 10mg x 5 days F/U INR: 2 weeks Patient verbalizes understanding of instructions given with accurate read back/ teach back of dosing Anti-Coag Initial Assessment Social Hx Patient Tobacco Use Status: Former Tobacco user Tobacco use type: Cigarette alcohol intake: former Coding Level of Care Code Est Patient Level 1 Diagnoses Current use of anticoagulant therapy Z79.01 Time Spent (min) 15 Assessment & Plan Assessment & Plan (1) Current use of anticoagulant therapy: Code(s): Z79.01 - [facility] (current) use of anticoagulants Category: Medical
== END 2022-10-19 10:38 | disposition home or self-care (01) ==
LOC: HO.ACS 10:13
PROVIDERS: PCP Internal Medicine; Visit Provider Internal Medicine
DX: Z79.01 Long term (current) use of anticoagulants (principal)

== ENCOUNTER → 2022-10-19 10:13 | Outpatient (BNVA) | payer MEDICARE, SELFPAY ==
[2022-08-10 10:10] VITALS: BMI 42.4
== END ==
PROVIDERS: PCP Internal Medicine; Visit Provider Internal Medicine
DX: I48.19 Other persistent atrial fibrillation (principal); Z79.01 Long term (current) use of anticoagulants; Z51.81 Encounter for therapeutic drug level monitoring
CPT/HCPCS: 85610; 99211

== ENCOUNTER 2022-10-25 10:46 | Outpatient (REF) | payer MEDICARE, SELFPAY ==
[2022-08-10 10:10] VITALS: BMI 42.4
[2022-10-25 13:45] LABS: B Type Natriuretic Peptide 180 pg/mL (<100)
[2022-10-25 13:46] LABS: Anion Gap 13 (12-20); Blood Urea Nitrogen 27 mg/dL (9-16); Carbon Dioxide 27 mmol/L (22-29); Chloride 104 mmol/L (96-108); Estimated Glomerular Filt Rate > 60; Glucose Random 115 mg/dL (60-115); Potassium 3.7 mmol/L (3.3-5.1); Sodium 140 mmol/L (135-145)
== END 2022-10-25 10:47 | disposition home or self-care (01) ==
LOC: HO.HMGCLDS 10:46
PROVIDERS: Visit Provider Nurse Practitioner
DX: I50.32 Chronic diastolic (congestive) heart failure (principal); R06.02 Shortness of breath
CPT/HCPCS: 36415; 80048; 83880

== ENCOUNTER 2022-10-26 14:03 | Outpatient (AMB) | payer MEDICARE, SELFPAY ==
[2022-08-10 10:10] VITALS: BMI 42.4
--- NOTE | 2022-10-26 14:10 | A.OFFVIS_ITS ---
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 She has had significant shortness of breath and cough. More recently her IgG levels were checked and found to be in the 400s. The patient has had recurrent lower respiratory infections. She is going to be started on IgG therapy by her oncologist most likely. In the meantime we looked at her previous CT scans demonstrating areas of ground-glass opacities and interstitial lung disease. She did undergo bronchoscopy back in 2018 demonstrating chronic inflammatory patchy interstitial infiltrates. It was also noted that she had lymphocytic inflammatory cell infiltrate. Based on the fact that she response to prednisone, evidence of ground-glass opacities on her CT scan and also based on the fact that the biopsy showed chronic inflammatory changes these findings are not consistent with idiopathic pulmonary fibrosis. 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 She does need to some degree of immuno modulation to minimize inflammation and scarring. However, we should address the immunodeficiency prior to doing so. In the meantime the patient has been complaining of worsening cough and shortness of breath. We did review her CT scan of the chest that she had recently demonstrating interval worsening of the interstitial lung disease in some areas of ground-glass opacities now in the upper lung zones which she was free of disease. The patient understands that the best way of knowing was going on will be with a lung biopsy. However, the last time she went to a surgical consultation she decided to hold off after the discussion with the surgeon. Therefore diff point will do additional laboratory data to see if we can identify the process without having her to do a biopsy. At which point the patient would benefit from a immunomodulator to try to minimize to use prednisone as she has not been able to tolerated. Patient also having significant stress because she is going through a divorce. She is drinking significant amount of beer. We talked about how this also can affect the respiratory status. 10/27/2020 the patient is here for pulmonary follow-up visit. Patient is struggling with BiPAP supplies. He has not gotten any supplies for 6 months. He has been calling [employer]. I did call them as well today and did request that they get back to the patient. His BiPAP therapy is crucial. He is very adherent to the therapy in the therapy has been very effective in beneficial for him. Does use it more than 4 hours a night. He still struggling with his volume status. Has not been taking the Bumex and recent size teen counselor whether Center increase it. This point he is running out. I will send a prescription because I do not want see him without the Bumex. But I really want his teen counselor or primary care doctor to start sending instead. I do think patient may have a component of pulmonary hypertension. Secondary causes are being treated with diuresis and also with BiPAP and oxygen. If he has any fur ther pulmonary hypertension may be out of proportion to his underlying pulmonary disease and therefore would benefit from vasodilators therapy. I am encouraged him to talk to his teen counselor about her right heart catheterization in order to further address this. His respiratory therapy has been affecting beneficial. He continues to use it without any adverse effects. 01/26/2021 the patient is here for a pulmonary follow-up visit. overall he is doing better. The patient was evaluated by Cardiology. His diuretics were increased he was given a plan to increase medication if needed. This appears to be working. His amount of lower extremity edema has improved dramatically. Also his shortness of breath has subsequently improved as well. He continues to use oxygen 3 L at rest and 4 L with activity which is reassuring. He continues using the BiPAP at nighttime. The BiPAP therapy continues to be affecting beneficial. Again we talked about the possibility of pulmonary hypertension. if the patient's condition worsens in the future a right heart catheterization may be helpful in assessing the need for vasodilator therapy. at this point I agree since the patient is doing better we can hold off on the semi-invasive any invasive interventions. The patient already got the COVID shot in the posterior. He will get the flu shot today. 06/23/2021 The patient is here a pulmonary office. The patient is doing well. He is working on weight loss. Continues using the BIPAP , AHI 4.5. Uses BIPAP more then 4 hours a day. USing his oxygen continuously. Has been usi ng his respiratory therapy. He did follow up with Cardiology and fwlt to be doing well. Holding off on the right heart catherization. Will request PFTs and start him on Pulmonary rehab. 12/20/2021 the patient is here for a pulmonary follow-up visit. He continues to participate in pulmonary rehabilitation. Has been very beneficial and effective for him. He still continues use the oxygen with good effect. He has been using with activity at 3 L and is able to take it off at rest. He also uses that at nighttime with BiPAP. During the office visit we did go for brief walking oximetry with the portable oxygen concentrator. However, the patient still does not qualify for a conserving device. Therefore he will continue his oxygen supplementation as prescribed. The BiPAP therapy has been affecting beneficial in he continues use it. Will go ahead and start him on maintenance therapy to help him with his obstructive airway disease. 06/14/2022 the patient is here for pulmonary follow-up visit. Overall he is doing well. The patient has been using the BiPAP every night. The BiPAP therapy has been affecting beneficial. The last download data demonstrated that his AHI was 4.5. Therefore, will go ahead increase the pressures from 18-19 cm and the expiratory pressure from 13-14 cm. He will continue using 3 L at nighttime. He needs to get supplies from his [employer], [employer] will submit a script for that. In addition to the C is using the diuretics with good effect. He continues use the respiratory medications. Unfortunately the Anoro was too expensive. I did print out a medication assistance for from the pharmaceutical company and will resend the Anoro again to the pharmacy. 10/26/2022 the patient is here for a pulmonary follow-up visit. The patient has been feeling dizzy lately. Just not himself. Denies any vertigo. He is not sure what could be. Although he noticed that in the morning when he was checking his blood pressure the heart rate was only in the 40s. He had him areas in the 50s and 60s at times and is AFib currently rate controlled. Is wondering if the low heart rate could be resulting in the dizziness. He did have blood work yesterday. Sugars seems to be okay. His kidney function since to be okay and electrolytes as well. His Bumex was increased further we did talk about auto toxicity but at this point he denies any decreased hearing and or tinnitus. The patient has been using the oxygen at 4 L with activity with good effect. Also use using the BiPAP at nighttime. He did have a recent echocardiogram done demonstrating that his a RV function is decrease in his mitral valve appears to be stenotic about a moderate to severe based on the report. I did reach out to the Cardiology to see if he can be seen on little bit sooner otherwise patient will continue with current therapy. He is going to continue to monitor the heart rate to make sure that it has not decreased further. He has been on metoprolol for a long time. Also recently he was starting to get more short of breath. His brain nitrate peptide was elevated and his Bumex was increased. This week he does feel better from a breathing [facility]. [facility] Medical History (Updated 10/26/22 @ 21:42 by Niels Lang MD) Mitral stenosis Pulmonary hypertension SOB (shortness of breath) Cor pulmonale Dyspnea Oxygen dependent Chronic hypoxemic respiratory failure Sleep apnea COPD (chronic obstructive pulmonary disease) Hyperlipidemia Atrial fibrillation Hypertension, essential Current use of anticoagulant therapy Surgical History History of carpal tunnel surgery History of colonoscopy History of thumb surgery History of mitral valve repair History of umbilical hernia History of tonsillectomy History of vasectomy Family History Father No problems noted. Mother No problems noted. Brother No problems noted. Sister Mental health disorder Sister No problems noted. Sister No problems noted. Sister No problems noted. Son No problems noted. Daughter No problems noted. Social History Household Members: None Housing: Apartment Do you presently have visiting nurse or other home services: No Alcohol intake: former Patient Tobacco Use Status: Former Tobacco user Tobacco use type: Cigarette Years Smoked: 25 e-Cigarette/Vaping Use: Never Used Second Hand Smoke Exposure: Yes (cigar smoke) Substance Use Type: Marijuana Advance Directives Date on File: 07/12/20 service: No Current occupational status: disabled Cognitive needs: No Hearing needs: No Vision needs: Yes Review of Systems Const Denies chills and Denies fever(s) ENT Reports dizziness, Denies epistaxis and Denies nasal discharge Card Denies chest pain and Reports dyspnea on exertion Resp Denies chest congestion, Denies cough, Denies hemoptysis and Reports dyspnea on exertion GI Denies diarrhea and Denies nausea Musc Reports myalgias Skin/Breast Denies rash Neuro Reports no additional complaints and Reports dizziness Psych Reports no additional complaints Endo Reports no additional complaints Physical Exam Vital Signs: Last Vital Signs Pulse 66 10/26/22 14:12 Pulse Ox 89 L 10/26/22 14:12 Oxygen Delivery Method Room Air 10/26/22 14:12 BMI result Body Mass Index 40.8 Const General: alert HEENT General nose exam: Abnormal external nose present and Nasal discharge present Neck Neck: Yes normal visual inspection, Yes full ROM and Yes no lymphadenopathy Chest Chest palpation & inspection: normal inspection of the chest Resp Effort & Inspection: normal respiratory effort Auscultation: diminished lung sounds Cardio Rate: regular rate Rhythm: abnormal rhythm Heart sounds: S1 normal heart sound present, S2 normal heart sound present and Murmur heart sound present GI Palpation (GI): Soft to palpation and nontender Auscultation: normal bowel sounds Skin General skin exam: rashes and/or lesions noted Extrem General: Yes clubbing and Yes edema Assessment & Plan Assessment & Plan (1) Pulmonary hypertension: Code(s): I27.20 - Pulmonary hypertension, unspecified (2) Dyspnea: Code(s): R06.00 - Dyspnea, unspecified Qualifiers: Dyspnea type: dyspnea on exertion Qualified Code(s): R06.00 - Dyspnea, unspecified (3) COPD (chronic obstructive pulmonary disease): Code(s): J44.9 - Chronic obstructive pulmonary disease, unspecified Qualifiers: COPD type: chronic bronchitis Chronic bronchitis type: simple Qualified Code(s): J41.0 - Simple chronic bronchitis (4) Mitral stenosis: Code(s): I05.0 - Rheumatic mitral stenosis Qualifiers: Cardiac valve disease etiology: etiology unspecified Qualified Code(s): I05.0 - Rheumatic mitral stenosis Plan Continue BiPAP therapy, JL AHI, oxygen 4L Continue oxygen therapy 3 L at rest, 4 L with activity diuresis with BUmex Consider right heart catheterization F/U with new Environmental Monitoring Specialist holding Pulmonary rehab, phase 2 until evaluated by cardiology restart Anoro daily F/U 3-4 months Medications: New umeclidinium-vilanterol 62.5-25 mcg/actuation (Anoro Ellipta) 1 inh inhalation DAILY 60 ea 11RF J44.9 - Chronic obstructive pulmonary disease, unspecified Coding Level of Care Code Est Pt Level 4 (66286) Diagnoses Pulmonary hypertension I27.20 Dyspnea on exertion R06.00 Dyspnea type: dyspnea on exertion Simple chronic bronchitis J41.0 COPD type: chronic bronchitis Chronic bronchitis type: simple Mitral valve stenosis, unspecified etiology I05.0 Cardiac valve disease etiology: etiology unspecified Time Spent (min) 18
[2022-10-26 14:12] VITALS: PULSE 66; O2SAT 89; BMI 40.8
== END 2022-10-26 14:40 | disposition home or self-care (01) ==
PROVIDERS: PCP Internal Medicine; Visit Provider Hospitalist
DX: I27.20 Pulmonary hypertension, unspecified (principal); R06.00 Dyspnea, unspecified; J41.0 Simple chronic bronchitis; I05.0 Rheumatic mitral stenosis
CPT/HCPCS: 99214

== ENCOUNTER → 2022-10-26 14:03 | Outpatient (BNVA) | payer MEDICARE, SELFPAY ==
[2022-08-10 10:10] VITALS: BMI 42.4
== END ==
PROVIDERS: PCP Internal Medicine; Visit Provider Hospitalist
DX: J41.0 Simple chronic bronchitis (principal); I27.20 Pulmonary hypertension, unspecified; R06.00 Dyspnea, unspecified; I05.0 Rheumatic mitral stenosis
CPT/HCPCS: 99212

== ENCOUNTER 2022-10-31 07:58 | Outpatient (AMB) | payer MEDICARE, SELFPAY ==
[2022-08-10 10:10] VITALS: BMI 42.4
--- NOTE | 2022-10-31 08:22 | A.OFFVIS_ITS ---
Intake Vital Signs 10/31/22 08:23 Height 6 ft 2 in Weight 319 lb 10.724 oz BMI 41.0 BP 82/54 L Blood Pressure Location Lt brachial Position Sitting Pulse 76 Intake Visit Reasons: mirna/ Dr. Lang Intake Note: [facility] up Patient Services Representative Required: No Accompanied by: Self / Same As Patient Allergies ciprofloxacin [From CIPRO] Allergy (Intermediate, Verified 10/31/22 08:55) DIFFICULTY BREATHING vancomycin [VANCOMYCIN] Allergy (Intermediate, Verified 10/31/22 08:55) RASH, rash over whole body Medication List - Last Reconciled 10/31/22 by Maxwell Enriquez MD albuterol sulfate 90 mcg/actuation 2 puffs PO Q6H PRN amlodipine 5 mg PO DAILY 90 days aspirin (Adult Low Dose Aspirin) 81 mg PO DAILY bumetanide 2 mg PO BID cholecalciferol (vitamin D3) 50 mcg PO DAILY guaifenesin ER (Mucinex) 1,200 mg PO BID PRN losartan 100 mg PO DAILY magnesium 400 mg PO DAILY metoprolol tartrate 100 mg PO BID multivitamin 1 tab PO DAILY omega-3 fatty acids-fish oil 360-1,200 mg (Fish Oil) 1 cap PO DAILY Oxygen Home Use As directed rosuvastatin 20 mg PO BEDTIME 90 days umeclidinium-vilanterol 62.5-25 mcg/actuation (Anoro Ellipta) 1 inh inhalation DAILY valacyclovir 500 mg PO DAILY vitamin B complex 1 tab PO DAILY vitamin E 200 units PO DAILY warfarin See Protocol 10 mg MWF, 12.5mg TThSS PO use as directed; 10 mg MWF HPI HPI Comments History of Present Illness Details Ketan returns for follow-up. Recently seen in consultation regarding various cardiac issues. Previously went to [facility]. Multiple medical comorbidities including history of chronic diastolic congestive heart failure, history of mitral valve repair more than 10 years ago, pulmonary hypertension. Per patient, during the time of mitral valve surgery did not get any coronary interventions. He also has pulmonary issues and seems to be on supplemental oxygen. He gets short of breath with activity but recently a bit more than usual. He also feels as though he has been swollen more than usual. Then diuretics were increased and Bumex dose doubled and he felt better. Today, he states that he is almost feeling back to normal self. Blood pressure is on the lower side today but he states when he checked it at home it was 115 systolic which is much higher than the current reading. He took all his blood pressure medications today. Otherwise, with regard to the blood pressure, he states that Nephrology has cut back on amlodipine for the same reason. [facility] Medical History (Updated 10/31/22 @ 11:13 by Maxwell Enriquez MD) Mitral stenosis Pulmonary hypertension SOB (shortness of breath) Cor pulmonale Dyspnea Oxygen dependent Chronic hypoxemic respiratory failure Sleep apnea COPD (chronic obstructive pulmonary disease) Hyperlipidemia Atrial fibrillation Hypertension, essential Current use of anticoagulant therapy Surgical History History of carpal tunnel surgery History of colonoscopy History of thumb surgery History of mitral valve repair History of umbilical hernia History of tonsillectomy History of vasectomy Family History Father No problems noted. Mother No problems noted. Brother No problems noted. Sister Mental health disorder Sister No problems noted. Sister No problems noted. Sister No problems noted. Son No problems noted. Daughter No problems noted. Social History Household Members: None Housing: Apartment Do you presently have visiting nurse or other home services: No Alcohol intake: former Patient Tobacco Use Status: Former Tobacco user Tobacco use type: Cigarette Years Smoked: 25 e-Cigarette/Vaping Use: Never Used Second Hand Smoke Exposure: Yes (cigar smoke) Substance Use Type: Marijuana Advance Directives Date on File: 07/12/20 service: No Current occupational status: disabled Cognitive needs: No Hearing needs: No Vision needs: Yes Review of Systems Const Denies weakness ENT Denies dizziness Card Denies chest pain, Denies chest pain with activity, Denies syncope, Denies rapid heart rate, Denies pedal edema, Denies edema, Denies leg edema, Denies lightheadedness, Denies palpitations, Denies dyspnea, Denies dyspnea on exertion and Denies orthopnea Resp Denies cough, Denies dyspnea and Denies dyspnea on exertion GI Denies hematochezia and Denies change in stool character Musc Denies abnormal gait, Denies muscle cramps, Denies muscle weakness, Denies numbness, Denies radiating pain into limb and Denies tingling Neuro Denies abnormal gait, Denies dizziness, Denies syncope, Denies numbness, Denies tingling and Denies weakness Endo Denies palpitations Physical Exam Vital Signs: Last Vital Signs Pulse 76 10/31/22 08:23 BP 82/54 L 10/31/22 08:23 BMI result Body Mass Index 41.0 Const General: comfortable and no acute distress Orientation/consciousness: patient oriented x3 HEENT Other: Unremarkable Head: Yes normal to inspection Neck Neck: Yes normal visual inspection Chest Chest palpation & inspection: normal inspection of the chest Resp Auscultation: diminished lung sounds Cardio Palpation: normal PMI Heart sounds: S1 normal heart sound present, S2 normal heart sound present, no gallops, no murmurs and no rubs GI Palpation (GI): Soft to palpation Back/Spine/Pelvis Other: unremarkable Skin General skin exam: no rashes or lesions noted Neuro General: patient oriented x3 Extrem General: Yes normal to inspection Psych Mental Status: mental status grossly normal Assessment & Plan Assessment & Plan (1) Status post mitral valve repair: Code(s): Z98.890 - Other specified postprocedural states Plan: In the most recent echocardiogram, mean gradient across mitral valve was 5 mm Hg. By continued equation, mitral valve area was 1.3 sq cm. The gradient is about the same as from 2020. However, in that study mitral valve area was larger 2.2 sq cm. Valve is roughly 10+ years old. Probably some degenerative changes. Any case, he is really not a candidate for any redo surgery at this time. If cannot manage medically, then need to consider the possibility of any percutaneous interventions. At that time, will need diagnostic catheterization including left and right and probably a MAGED as well. (2) Persistent atrial fibrillation: Code(s): I48.19 - Other persistent atrial fibrillation Plan: He was on long-term amiodarone but that has been stopped. In the recent Holter, well rate controlled atrial fibrillation. With his weight as well as advanced lung disease on supplemental oxygen, will be very difficult to keep him in sinus. Hence may have to accept rate control only. Otherwise, continue anticoagulation. Also, on the echocardiogram there is severe biatrial enlargement which will make rhythm control challenging. Per patient, he has been cardioverted several times before. (3) Chronic diastolic (congestive) heart failure: Code(s): I50.32 - Chronic diastolic (congestive) heart failure Plan: Recently, diuretic dose has been increased. He can take the current Bumex dose at b.i.d.. He briefly took a t.i.d. dose for a couple of days but advised to cut back. Discussed. (4) Pulmonary hypertension: Code(s): I27.20 - Pulmonary hypertension, unspecified Plan: Likely from some combination of cardiac as well as pulmonary etiology. Weight loss if he can do but may not be feasible. Otherwise, mainly diuretics from cardiac. (5) Arterial hypotension: Code(s): I95.9 - Hypotension, unspecified Plan: Today's blood pressure is low but he has no dizziness or presyncope. Apparently blood pressure at home was much higher in the 110s today. He states amlodipine dose has recently been cut back. He can stop it completely and monitor blood pressures. Other changes based on blood pressure trend. Any case, he has got no symptoms from this. Coding Level of Care Code Est Pt Level 4 (64574) Diagnoses Status post mitral valve repair Z98.890 Persistent atrial fibrillation I48.19 Chronic diastolic (congestive) heart failure I50.32 Pulmonary hypertension I27.20 Arterial hypotension I95.9
[2022-10-31 08:23] VITALS: BP 82/54; PULSE 76; BMI 41.0
== END 2022-10-31 09:12 | disposition home or self-care (01) ==
PROVIDERS: PCP Internal Medicine; Visit Provider Internal Medicine
DX: Z98.890 Other specified postprocedural states (principal); I48.19 Other persistent atrial fibrillation; I50.32 Chronic diastolic (congestive) heart failure; I27.20 Pulmonary hypertension, unspecified; I95.9 Hypotension, unspecified
CPT/HCPCS: 99214

== ENCOUNTER → 2022-10-31 07:58 | Outpatient (BNVA) | payer MEDICARE, SELFPAY ==
[2022-08-10 10:10] VITALS: BMI 42.4
== END ==
PROVIDERS: PCP Internal Medicine; Visit Provider Internal Medicine
DX: I48.19 Other persistent atrial fibrillation (principal); I50.32 Chronic diastolic (congestive) heart failure; I27.20 Pulmonary hypertension, unspecified; I95.9 Hypotension, unspecified; Z98.890 Other specified postprocedural states; Z79.01 Long term (current) use of anticoagulants; Z51.81 Encounter for therapeutic drug level monitoring
CPT/HCPCS: 85610; 99211; 99212

== ENCOUNTER 2022-10-31 08:55 | Outpatient (AMB) | payer MEDICARE, SELFPAY ==
[2022-08-10 10:10] VITALS: BMI 42.4
[2022-10-31 09:03] LABS: Prothrombin Time Whole Bld POC 35.5 sec (11.1-13.5)
--- NOTE | 2022-10-31 09:03 | MHC.OFFVISCO ---
Intake Intake Visit Reasons: Anticoagulation Allergies ciprofloxacin [From CIPRO] Allergy (Intermediate, Verified 10/31/22 08:55) DIFFICULTY BREATHING vancomycin [VANCOMYCIN] Allergy (Intermediate, Verified 10/31/22 08:55) RASH, rash over whole body Medication List - Last Reconciled 10/31/22 by Delphine Holland, RN albuterol sulfate 90 mcg/actuation 2 puffs PO Q6H PRN aspirin (Adult Low Dose Aspirin) 81 mg PO DAILY bumetanide 2 mg PO BID cholecalciferol (vitamin D3) 50 mcg PO DAILY guaifenesin ER (Mucinex) 1,200 mg PO BID PRN losartan 100 mg PO DAILY magnesium 400 mg PO DAILY metoprolol tartrate 100 mg PO BID multivitamin 1 tab PO DAILY omega-3 fatty acids-fish oil 360-1,200 mg (Fish Oil) 1 cap PO DAILY Oxygen Home Use As directed rosuvastatin 20 mg PO BEDTIME 90 days umeclidinium-vilanterol 62.5-25 mcg/actuation (Anoro Ellipta) 1 inh inhalation DAILY valacyclovir 500 mg PO DAILY vitamin B complex 1 tab PO DAILY vitamin E 200 units PO DAILY warfarin See Protocol 10 mg MWF, 12.5mg TThSS PO use as directed; 10 mg MWF Nursing Note INR: 3.0 in therapeutic range Medications and supplements reviewed pt had cardiology elaina this am and his amilodipine was d/cd - he stated the right side of his heart isn't functioning properly, he has been feeling tired, he possibly had covid at end of September and has felt tiered since then Denies any signs and symptoms of bleeding or bruising or clotting. Bleeding, bruising, clotting discussed Nutritional guidance given- keep eating a mix of reds and greens , greens today Dose: keep same 5mg x 2 days, 10mg x 5 days F/U INR: 2 weeks Patient verbalizes understanding of instructions given Anti-Coag Initial Assessment Social Hx Patient Tobacco Use Status: Former Tobacco user Tobacco use type: Cigarette alcohol intake: former Coding Level of Care Code Est Patient Level 1 Diagnoses Current use of anticoagulant therapy Z79.01 Assessment & Plan Assessment & Plan (1) Current use of anticoagulant therapy: Code(s): Z79.01 - halfway (current) use of anticoagulants Category: Medical
== END 2022-10-31 09:20 | disposition home or self-care (01) ==
LOC: HO.ACS 08:55
PROVIDERS: PCP Internal Medicine; Visit Provider Internal Medicine
DX: Z79.01 Long term (current) use of anticoagulants (principal)

== ENCOUNTER 2022-11-14 09:50 | Outpatient (AMB) | payer MEDICARE, SELFPAY ==
[2022-08-10 10:10] VITALS: BMI 42.4
--- NOTE | 2022-11-14 10:23 | MHC.OFFVISCO ---
Intake Intake Visit Reasons: Anticoagulation Allergies ciprofloxacin [From CIPRO] Allergy (Intermediate, Verified 11/14/22 10:05) DIFFICULTY BREATHING vancomycin [VANCOMYCIN] Allergy (Intermediate, Verified 11/14/22 10:05) RASH, rash over whole body Medication List - Last Reconciled 11/14/22 by Delphine Holland, RN albuterol sulfate 90 mcg/actuation 2 puffs PO Q6H PRN aspirin (Adult Low Dose Aspirin) 81 mg PO DAILY bumetanide 2 mg PO BID cholecalciferol (vitamin D3) 50 mcg PO DAILY guaifenesin ER (Mucinex) 1,200 mg PO BID PRN losartan 100 mg PO DAILY magnesium 400 mg PO DAILY metoprolol tartrate 100 mg PO BID multivitamin 1 tab PO DAILY omega-3 fatty acids-fish oil 360-1,200 mg (Fish Oil) 1 cap PO DAILY Oxygen Home Use As directed rosuvastatin 20 mg PO BEDTIME 90 days umeclidinium-vilanterol 62.5-25 mcg/actuation (Anoro Ellipta) 1 inh inhalation DAILY valacyclovir 500 mg PO DAILY vitamin B complex 1 tab PO DAILY vitamin E 200 units PO DAILY warfarin See Protocol 10 mg MWF, 12.5mg TThSS PO use as directed; 10 mg MWF Nursing Note INR: 2.0 in therapeutic range Medications and supplements reviewed PT states he has seen cardiology, blood pressure fluccuates even after amilodipine has been d/c he stated he started osteo bio flex for arthritis over a month ago - can raise the INR . Denies any signs and symptoms of bleeding or bruising or clotting. 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
== END 2022-11-14 10:58 | disposition home or self-care (01) ==
LOC: HO.ACS 09:50
PROVIDERS: PCP Internal Medicine; Visit Provider Internal Medicine
DX: Z79.01 Long term (current) use of anticoagulants (principal)

== ENCOUNTER → 2022-11-14 09:50 | Outpatient (BNVA) | payer MEDICARE, SELFPAY ==
[2022-08-10 10:10] VITALS: BMI 42.4
== END ==
PROVIDERS: PCP Internal Medicine; Visit Provider Internal Medicine
DX: I48.19 Other persistent atrial fibrillation (principal); Z79.01 Long term (current) use of anticoagulants; Z51.81 Encounter for therapeutic drug level monitoring
CPT/HCPCS: 85610; 99211

== ENCOUNTER 2022-12-04 09:36 | Outpatient (AMB) | payer MEDICARE, SELFPAY ==
[2022-08-10 10:10] VITALS: BMI 42.4
--- NOTE | 2022-12-04 09:41 | MHC.OFFVISCO ---
Intake Intake Visit Reasons: Anticoagulation Allergies ciprofloxacin [From CIPRO] Allergy (Intermediate, Verified 12/04/22 09:37) DIFFICULTY BREATHING vancomycin [VANCOMYCIN] Allergy (Intermediate, Verified 12/04/22 09:37) RASH, rash over whole body Medication List - Last Reconciled 12/04/22 by Teresa Philippe, RN albuterol sulfate 90 mcg/actuation 2 puffs PO Q6H PRN aspirin (Adult Low Dose Aspirin) 81 mg PO DAILY bumetanide 2 mg PO BID cholecalciferol (vitamin D3) 50 mcg PO DAILY guaifenesin ER (Mucinex) 1,200 mg PO BID PRN losartan 100 mg PO DAILY magnesium 400 mg PO DAILY metoprolol tartrate 100 mg PO BID multivitamin 1 tab PO DAILY omega-3 fatty acids-fish oil 360-1,200 mg (Fish Oil) 1 cap PO DAILY [OSTEO BIO FLEX PO] Oxygen Home Use As directed rosuvastatin 20 mg PO BEDTIME 90 days umeclidinium-vilanterol 62.5-25 mcg/actuation (Anoro Ellipta) 1 inh inhalation DAILY valacyclovir 500 mg PO DAILY vitamin B complex 1 tab PO DAILY vitamin E 200 units PO DAILY warfarin See Protocol 10 mg MWF, 12.5mg TThSS PO use as directed; 10 mg MWF Nursing Note INR 1.5-?? out of therapeutic range Medications and supplements reviewed Patient status: no c.o, denies missed dose Medications or supplements: no changes Diet: had some greens Denies any signs and symptoms of bleeding or clotting or unusual bruising Bleeding, bruising, clotting discussed Nutritional guidance given: no greens for 2 days, eat reds to raise inr Dose: 10mg today then cont 5mg x 2, 10mg x 5 F/U INR Date : 1 week?? Patient verbalizing understanding of instructions given pcp office- dr riley called with low inr/dosing and f/u appt. spoke to russell at 0945. 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
[2022-12-04 09:42] LABS: ~PT, ~INR - Anti Coag Clinic 1.5 (0.9-1.1)
== END 2022-12-04 09:52 | disposition home or self-care (01) ==
LOC: HO.ACS 09:36
PROVIDERS: PCP Internal Medicine; Visit Provider Internal Medicine
DX: Z79.01 Long term (current) use of anticoagulants (principal)

== ENCOUNTER → 2022-12-04 09:36 | Outpatient (BNVA) | payer MEDICARE, SELFPAY ==
[2022-08-10 10:10] VITALS: BMI 42.4
== END ==
PROVIDERS: PCP Internal Medicine; Visit Provider Internal Medicine
DX: I48.19 Other persistent atrial fibrillation (principal); Z79.01 Long term (current) use of anticoagulants; Z51.81 Encounter for therapeutic drug level monitoring
CPT/HCPCS: 85610; 99211

== ENCOUNTER 2022-12-07 12:18 | Outpatient (AMB) | payer MEDICARE, SELFPAY ==
[2022-08-10 10:10] VITALS: BMI 42.4
--- NOTE | 2022-12-07 12:31 | A.OFFVIS_ITS ---
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 Accompanied by: Self / Same As Patient Allergies ciprofloxacin [From CIPRO] Allergy (Intermediate, Verified 12/07/22 12:34) DIFFICULTY BREATHING vancomycin [VANCOMYCIN] Allergy (Intermediate, Verified 12/07/22 12:34) RASH, rash over whole body Medication List - Last Reconciled 12/07/22 by Maxwell Enriquez MD albuterol sulfate 90 mcg/actuation 2 puffs PO Q6H PRN aspirin (Adult Low Dose Aspirin) 81 mg PO DAILY bumetanide 2 mg PO BID cholecalciferol (vitamin D3) 50 mcg PO DAILY guaifenesin ER (Mucinex) 1,200 mg PO BID PRN losartan 100 mg PO DAILY magnesium 400 mg PO DAILY metoprolol tartrate 100 mg PO BID multivitamin 1 tab PO DAILY omega-3 fatty acids-fish oil 360-1,200 mg (Fish Oil) 1 cap PO DAILY [OSTEO BIO FLEX PO] Oxygen Home Use As directed rosuvastatin 20 mg PO BEDTIME 90 days umeclidinium-vilanterol 62.5-25 mcg/actuation (Anoro Ellipta) 1 inh inhalation DAILY valacyclovir 500 mg PO DAILY vitamin B complex 1 tab PO DAILY vitamin E 200 units PO DAILY warfarin See Protocol 10 mg MWF, 12.5mg TThSS PO use as directed; 10 mg MWF HPI HPI Comments History of Present Illness Details Ketan returns for follow-up. Transferred care from [facility]. Multiple medical comorbidities including history of chronic diastolic congestive heart failure, history of mitral valve repair more than 10 years ago, pulmonary hypertension. Per patient, during the time of mitral valve surgery did not get any coronary interventions. He also has pulmonary issues and seems to be on supplemental oxygen. Chronically short of breath with activity. Recently increased Bumex dose due to some swelling and increased shortness of breath and he feels better after that. Otherwise, feels at his baseline. [facility] Medical History (Updated 12/07/22 @ 12:50 by Maxwell Enriquez MD) Mitral stenosis Pulmonary hypertension SOB (shortness of breath) Cor pulmonale Dyspnea Oxygen dependent Chronic hypoxemic respiratory failure Sleep apnea COPD (chronic obstructive pulmonary disease) Hyperlipidemia Atrial fibrillation Hypertension, essential Current use of anticoagulant therapy Surgical History History of carpal tunnel surgery History of colonoscopy History of thumb surgery History of mitral valve repair History of umbilical hernia History of tonsillectomy History of vasectomy Family History Father No problems noted. Mother No problems noted. Brother No problems noted. Sister Mental health disorder Sister No problems noted. Sister No problems noted. Sister No problems noted. Son No problems noted. Daughter No problems noted. Social History Household Members: None Housing: Apartment Do you presently have visiting nurse or other home services: No Alcohol intake: former Patient Tobacco Use Status: Former Tobacco user Tobacco use type: Cigarette Years Smoked: 25 e-Cigarette/Vaping Use: Never Used Second Hand Smoke Exposure: Yes (cigar smoke) Substance Use Type: Marijuana Advance Directives Date on File: 07/12/20 service: No Current occupational status: disabled Cognitive needs: No Hearing needs: No Vision needs: Yes Review of Systems Const Denies weakness ENT Denies dizziness Card Denies chest pain, Denies chest pain with activity, Denies syncope, Denies rapid heart rate, Denies pedal edema, Denies edema, Denies leg edema, Denies lightheadedness, Denies palpitations, Denies dyspnea, Denies dyspnea on exertion and Denies orthopnea Resp Denies cough, Denies dyspnea and Denies dyspnea on exertion GI Denies hematochezia and Denies change in stool character Musc Denies abnormal gait, Denies muscle cramps, Denies muscle weakness, Denies numbness, Denies radiating pain into limb and Denies tingling Neuro Denies abnormal gait, Denies dizziness, Denies syncope, Denies numbness, Denies tingling and Denies weakness Endo Denies palpitations Physical Exam Vital Signs: Last Vital Signs Pulse 60 12/07/22 12:32 BP 118/72 12/07/22 12:32 BMI result Body Mass Index 42.2 Const General: comfortable and no acute distress Orientation/consciousness: patient oriented x3 HEENT Other: Unremarkable Head: Yes normal to inspection Neck Neck: Yes normal visual inspection Chest Chest palpation & inspection: normal inspection of the chest Resp Auscultation: diminished lung sounds Cardio Palpation: normal PMI Heart sounds: S1 normal heart sound present, S2 normal heart sound present, no gallops, no murmurs and no rubs GI Palpation (GI): Soft to palpation Back/Spine/Pelvis Other: unremarkable Skin General skin exam: no rashes or lesions noted Neuro General: patient oriented x3 Extrem General: Yes normal to inspection Psych Mental Status: mental status grossly normal Assessment & Plan Assessment & Plan (1) Status post mitral valve repair: Code(s): Z98.890 - Other specified postprocedural states Plan: In the most recent echocardiogram, mean gradient across mitral valve was 5 mm Hg. By continued equation, mitral valve area was 1.3 sq cm. The gradient is about the same as from 2020. However, in that study mitral valve area was larger 2.2 sq cm. Valve is roughly 10+ years old. Probably some degenerative changes. Do not think he is suitable for any interventions at this time. Definitely not a candidate for redo surgery. Continue to monitor. (2) Persistent atrial fibrillation: Code(s): I48.19 - Other persistent atrial fibrillation Plan: Unclear why he was on long-term amiodarone that has now been stopped. Rate cont rol only. Continue anticoagulation. Per patient, multiple prior cardioversions. (3) Chronic diastolic (congestive) heart failure: Code(s): I50.32 - Chronic diastolic (congestive) heart failure Plan: Continue diuretics. (4) Pulmonary hypertension: Code(s): I27.20 - Pulmonary hypertension, unspecified Plan: Likely from some combination of cardiac as well as pulmonary etiology. Weight loss if he can do but may not be feasible. Diuretics. (5) Arterial hypotension: Code(s): I95.9 - Hypotension, unspecified Qualifiers: Hypotension type: hypotension due to drug Qualified Code(s): I95.2 - Hypotension due to drugs Plan: Off amlodipine. Blood pressure seems back to normal. Coding Level of Care Code Est Pt Level 4 (27826) Diagnoses Status post mitral valve repair Z98.890 Persistent atrial fibrillation I48.19 Chronic diastolic (congestive) heart failure I50.32 Pulmonary hypertension I27.20 Hypotension due to drugs I95.2 Hypotension type: hypotension due to drug
[2022-12-07 12:32] VITALS: BP 118/72; PULSE 60; BMI 42.2
== END 2022-12-07 12:52 | disposition home or self-care (01) ==
PROVIDERS: PCP Internal Medicine; Visit Provider Internal Medicine
DX: Z98.890 Other specified postprocedural states (principal); I48.19 Other persistent atrial fibrillation; I50.32 Chronic diastolic (congestive) heart failure; I27.20 Pulmonary hypertension, unspecified; I95.2 Hypotension due to drugs
CPT/HCPCS: 99214

== ENCOUNTER → 2022-12-07 12:18 | Outpatient (BNVA) | payer MEDICARE, SELFPAY ==
[2022-08-10 10:10] VITALS: BMI 42.4
== END ==
PROVIDERS: PCP Internal Medicine; Visit Provider Internal Medicine
DX: I48.19 Other persistent atrial fibrillation (principal); I11.0 Hypertensive heart disease with heart failure; I50.32 Chronic diastolic (congestive) heart failure; I27.20 Pulmonary hypertension, unspecified; I95.2 Hypotension due to drugs; Z99.81 Dependence on supplemental oxygen; Z79.01 Long term (current) use of anticoagulants
CPT/HCPCS: 99212

== ENCOUNTER 2022-12-11 09:46 | Outpatient (AMB) | payer MEDICARE, SELFPAY ==
[2022-08-10 10:10] VITALS: BMI 42.4
--- NOTE | 2022-12-11 10:30 | MHC.OFFVISCO ---
Intake Intake Visit Reasons: Anticoagulation Allergies ciprofloxacin [From CIPRO] Allergy (Intermediate, Verified 12/11/22 10:11) DIFFICULTY BREATHING vancomycin [VANCOMYCIN] Allergy (Intermediate, Verified 12/11/22 10:11) RASH, rash over whole body Medication List - Last Reconciled 12/11/22 by Delphine Holland, RN albuterol sulfate 90 mcg/actuation 2 puffs PO Q6H PRN aspirin (Adult Low Dose Aspirin) 81 mg PO DAILY bumetanide 2 mg PO BID cholecalciferol (vitamin D3) 50 mcg PO DAILY guaifenesin ER (Mucinex) 1,200 mg PO BID PRN losartan 100 mg PO DAILY magnesium 400 mg PO DAILY metoprolol tartrate 100 mg PO BID multivitamin 1 tab PO DAILY omega-3 fatty acids-fish oil 360-1,200 mg (Fish Oil) 1 cap PO DAILY [OSTEO BIO FLEX PO] Oxygen Home Use As directed rosuvastatin 20 mg PO BEDTIME 90 days umeclidinium-vilanterol 62.5-25 mcg/actuation (Anoro Ellipta) 1 inh inhalation DAILY valacyclovir 500 mg PO DAILY vitamin B complex 1 tab PO DAILY vitamin E 200 units PO DAILY warfarin See Protocol 10 mg MWF, 12.5mg TThSS PO use as directed; 10 mg MWF Nursing Note INR: 3.5 not in therapeutic range Medications and supplements reviewed has not been back to resp rehab due to heart health - enc to ask for cardiac rehab due to his cardiac health- that they may be able to help Denies any signs and symptoms of bleeding or bruising or clotting. Bleeding, bruising, clotting discussed Nutritional guidance given Dose: 5mg x 2 days/ 10mg x 5 days F/U INR: 12/21/22 Patient verbalizes understanding of instructions given Anti-Coag Initial Assessment Social Hx Patient Tobacco Use Status: Former Tobacco user Tobacco use type: Cigarette alcohol intake: former Coding Level of Care Code Est Patient Level 1 Diagnoses Current use of anticoagulant therapy Z79.01 Results AMB INR Fingerstick AMB INR Fingerstick 3.5 Last Edit by Delphine Holland, RN on 12/11/22 10:23 MANUAL ENTRY Assessment & Plan Assessment & Plan (1) Current use of anticoagulant therapy: Code(s): Z79.01 - [facility] (current) use of anticoagulants Category: Medical
[2022-12-11 20:37] LABS: Prothrombin Time Whole Bld POC 41.7 sec (11.1-13.5); ~PT, ~INR - Anti Coag Clinic 3.5 (0.9-1.1)
== END 2022-12-11 10:33 | disposition home or self-care (01) ==
LOC: HO.ACS 09:46
PROVIDERS: PCP Internal Medicine; Visit Provider Internal Medicine
DX: Z79.01 Long term (current) use of anticoagulants (principal)

== ENCOUNTER → 2022-12-11 09:46 | Outpatient (BNVA) | payer MEDICARE, SELFPAY ==
[2022-08-10 10:10] VITALS: BMI 42.4
== END ==
PROVIDERS: PCP Internal Medicine; Visit Provider Internal Medicine
DX: I48.19 Other persistent atrial fibrillation (principal); Z79.01 Long term (current) use of anticoagulants; Z51.81 Encounter for therapeutic drug level monitoring
CPT/HCPCS: 85610; 99211

== ENCOUNTER 2022-12-21 09:15 | Outpatient (AMB) | payer MEDICARE, SELFPAY ==
[2022-08-10 10:10] VITALS: BMI 42.4
--- NOTE | 2022-12-21 09:21 | MHC.OFFVISCO ---
Intake Intake Visit Reasons: Anticoagulation Allergies ciprofloxacin [From CIPRO] Allergy (Intermediate, Verified 12/21/22 09:16) DIFFICULTY BREATHING vancomycin [VANCOMYCIN] Allergy (Intermediate, Verified 12/21/22 09:16) RASH, rash over whole body Medication List - Last Reconciled 12/21/22 by Teresa Philippe RN albuterol sulfate 90 mcg/actuation 2 puffs PO Q6H PRN aspirin (Adult Low Dose Aspirin) 81 mg PO DAILY bumetanide 2 mg PO BID cholecalciferol (vitamin D3) 50 mcg PO DAILY guaifenesin ER (Mucinex) 1,200 mg PO BID PRN losartan 100 mg PO DAILY magnesium 400 mg PO DAILY metoprolol tartrate 100 mg PO BID multivitamin 1 tab PO DAILY omega-3 fatty acids-fish oil 360-1,200 mg (Fish Oil) 1 cap PO DAILY [OSTEO BIO FLEX PO] Oxygen Home Use As directed rosuvastatin 20 mg PO BEDTIME 90 days umeclidinium-vilanterol 62.5-25 mcg/actuation (Anoro Ellipta) 1 inh inhalation DAILY vitamin B complex 1 tab PO DAILY vitamin E 200 units PO DAILY warfarin See Protocol 10 mg MWF, 12.5mg TThSS PO use as directed; 10 mg MWF Nursing Note INR: 2.3- in therapeutic range of 2-3 Medications and supplements reviewed- pt no longer taking pred eye drops or valcyclovir- no interaction with warfarin per micromedex No changes in health, diet, medications, or supplements, Denies any signs and symptoms of bleeding or bruising or clotting. Bleeding, bruising, clotting discussed Nutritional guidance given Dose: 5mg x 2, 10mg x 5 F/U INR: 2 weeks Patient verbalizes understanding of instructions given pt on cont oxygen Anti-Coag Initial Assessment Social Hx Patient Tobacco Use Status: Former Tobacco user Tobacco use type: Cigarette alcohol intake: former Coding Level of Care Code Est Patient Level 1 Diagnoses Current use of anticoagulant therapy Z79.01 Results AMB INR Fingerstick AMB INR Fingerstick 2.3 Last Edit by Teresa Philippe RN on 12/21/22 09:23 Assessment & Plan Assessment & Plan (1) Current use of anticoagulant therapy: Code(s): Z79.01 - [facility] (current) use of anticoagulants Category: Medical
[2022-12-21 13:35] LABS: Prothrombin Time Whole Bld POC 27.4 sec (11.1-13.5); ~PT, ~INR - Anti Coag Clinic 2.3 (0.9-1.1)
== END 2022-12-21 09:28 | disposition home or self-care (01) ==
LOC: HO.ACS 09:15
PROVIDERS: PCP Internal Medicine; Visit Provider Internal Medicine
DX: Z79.01 Long term (current) use of anticoagulants (principal)

== ENCOUNTER → 2022-12-21 09:15 | Outpatient (BNVA) | payer MEDICARE, SELFPAY ==
[2022-08-10 10:10] VITALS: BMI 42.4
== END ==
PROVIDERS: PCP Internal Medicine; Visit Provider Internal Medicine
DX: I48.19 Other persistent atrial fibrillation (principal); Z79.01 Long term (current) use of anticoagulants; Z51.81 Encounter for therapeutic drug level monitoring
CPT/HCPCS: 85610; 99211

== ENCOUNTER 2023-01-01 10:27 | Inpatient (IN) | payer MEDICARE, MEDICAID, SELFPAY ==
[2022-08-10 10:10] VITALS: BMI 42.4
[2023-01-01] VITALS (13 sets, daily range): BP systolic 110–143; BP diastolic 57–104; PULSE 70–97; RESP 17–28; TEMP 36.1–37.7; O2SAT 88–92; BMI 40.4; BMI 40.3
--- NOTE | ~2023-01-01 | XR_ITS ---
EXAMINATION: XR CHEST CLINICAL INFORMATION: Shortness of breath. COMPARISON: Chest radiographs of 05/09/2022. CT chest of 07/12/2020. TECHNIQUE: 3 frontal views of the chest was obtained. FINDINGS: Redemonstration of advanced emphysematous changes with bilateral chronic reticulonodular changes and bronchiectasis. Increased hazy opacities in the bilateral mid to lower lungs may represent a superimposed infectious/inflammatory process. No gross pleural effusion. There is no gross pneumothorax. Enlarged cardiac silhouette. XR/XR chest 1V IMPRESSION: Redemonstration of advanced emphysematous changes with bilateral chronic reticulonodular changes and bronchiectasis. Increased hazy opacities in the bilateral mid to lower lungs may represent a superimposed infectious/inflammatory process.
--- NOTE | 2023-01-01 10:42 | ECG_ITS ---
Test Reason : DYSPNEA Blood Pressure : / mmHG Vent. Rate : 081 BPM Atrial Rate : 394 BPM P-R Int : 000 ms QRS Dur : 114 ms QT Int : 380 ms P-R-T Axes : 000 088 -02 degrees QTc Int : 441 ms Atrial fibrillation with premature ventricular or aberrantly conducted complexes Incomplete right bundle branch block Abnormal QRS-T angle, consider primary T wave abnormality Abnormal ECG When compared with ECG of 12-MAY-2022 10:38, No significant changes seen Referred By: Generic ED Physician Electronically Signed By:JESUS MANUEL VERDUZCO MD
--- NOTE | 2023-01-01 10:53 | ED.GENADULT ---
HPI - General Adult General Chief complaint: Dyspnea Stated complaint: diff breathing Time Seen by Provider: 01/01/23 10:52 Source: patient Mode of arrival: ambulatory Limitations: no limitations History of Present Illness HPI narrative: Patient is a 62 year old assigned male at with a history of COPD on 4 liters of oxygen via nasal cannula at baseline, atrial fib / atrial flutter on coumadin, and CHF presenting to the emergency department today with worsening shortness of breath. Patient states that he was exposed to his sick grand son on 12/28/2022 and ever since has had increasing shortness of breath. Patient denies any dizziness, lightheadedness, abdominal pain, nausea, vomiting, fever, chills, blurry vision, double vision, loss of vision, chest pain, back pain, night sweats, pain with urination, increased urinary frequency, increased urinary urgency, blood in his urine or stool, syncope or a near syncopal episode, recent trauma or falls, bowel incontinence, bladder incontinence, bowel retention, bladder retention, or any other complaints at this time. Onset (ago): day(s) (4) Severity: moderate Severity scale (1-10): 5 Relieving factors: none Exacerbating factors: none Associated symptoms: shortness of breath Treatments prior to arrival: none Related Data Home Medications Medication Instructions Recorded Confirmed aspirin 81 mg tablet,delayed 81 mg PO DAILY 03/12/20 01/01/23 release (Adult Low Dose Aspirin) cholecalciferol (vitamin D3) 50 50 mcg PO DAILY 03/12/20 01/01/23 mcg (2,000 unit) capsule magnesium 200 mg tablet 400 mg PO DAILY 03/12/20 01/01/23 omega-3 fatty acids-fish oil 360 1 cap PO DAILY 03/12/20 01/01/23 mg-1,200 mg capsule (Fish Oil) multivitamin 1 tab PO DAILY 07/12/20 01/01/23 Oxygen Home Use 06/14/22 12/11/22 bumetanide 2 mg tablet 2 mg PO BID 10/31/22 01/01/23 vitamin B complex 1 tab PO DAILY 10/31/22 01/01/23 calcium carbonate 500 mg calcium 500 mg PO DAILY 01/01/23 01/01/23 (1,250 mg) tablet warfarin 5 mg tablet 5 mg PO MOTH 01/01/23 01/01/23 warfarin 5 mg tablet 10 mg PO SUTUWEFRSA 01/01/23 01/01/23 Previous Rx's Medication Instructions Recorded losartan 100 mg tablet 100 mg PO DAILY #30 tabs 04/18/22 rosuvastatin 20 mg tablet 20 mg PO BEDTIME 90 days #90 tabs 10/25/22 umeclidinium 62.5 mcg-vilanterol 1 inh inhalation DAILY #60 ea 10/26/22 25 mcg/actuation powdr for inhalation (Anoro Ellipta) metoprolol tartrate 100 mg tablet 100 mg PO BID 90 days #180 tabs 12/25/22 Allergies Allergy/AdvReac Type Severity Reaction Status Date / Time ciprofloxacin [From CIPRO] Allergy Intermediate DIFFICULTY Verified 12/21/22 09:16 BREATHING vancomycin [VANCOMYCIN] Allergy Intermediate RASH, rash Verified 12/21/22 09:16 over whole body Review of Systems Constitutional: Constitutional: Reports no additional constitutional complaints, Denies chills, Denies fever(s) and Denies night sweats Eyes: Eyes: Reports no additional eye complaints, Denies blurry vision, Denies change in vision, Denies diplopia, Denies eye discharge, Denies loss of vision and Denies eye pain ENT: Denies dizziness Cardiovascular: Cardiovascular: Reports no additional cardiovascular complaints, Denies chest pain, Denies lightheadedness, Denies Loss of Consciousness and Reports dyspnea Respiratory: Respiratory: Reports no additional respiratory complaints, Reports cough and Reports dyspnea Gastrointestinal: Gastrointestinal: Reports no additional gastrointestinal complaints, Denies abdominal pain, Denies melena, Denies hematochezia, Denies change in bowel habits and Denies change in stool character Genitourinary: Genitourinary: Reports no additional male genitourinary complaints, Denies hematuria, Denies oliguria, Denies difficulty urinating, Denies dysuria, Denies urinary frequency, Denies urinary hesitancy, Denies urinary incontinence and Denies urinary urgency Musculoskeletal: Musculoskeletal: Reports no additional musculoskeletal complaints, Denies numbness and Denies tingling Neurologic: Denies dizziness, Denies loss of vision, Denies numbness and Denies tingling Psychiatric: Psychiatric: Reports no additional psychiatric complaints Endocrine: Endocrine: Reports no additional endocrine complaints Hematologic/Lymphatic: Hematologic/Lymphatic: Reports no additional hematologic/lymphatic complaints Allergic/Immunologic: Allergic/Immunologic: Reports no additional allergic/immunologic complaints PMFSH Past Medical History Attestation statement: The following information was validated with the patient. Source: old records reviewed and nursing notes reviewed Medical History Mitral stenosis Pulmonary hypertension SOB (shortness of breath) Cor pulmonale Dyspnea Oxygen dependent Chronic hypoxemic respiratory failure Sleep apnea COPD (chronic obstructive pulmonary disease) Hyperlipidemia Atrial fibrillation Hypertension, essential Current use of anticoagulant therapy Surgical History History of carpal tunnel surgery History of colonoscopy History of thumb surgery History of mitral valve repair History of umbilical hernia History of tonsillectomy History of vasectomy Family History Family History Father No problems noted. Mother No problems noted. Brother No problems noted. Sister Mental health disorder Sister No problems noted. Sister No problems noted. Sister No problems noted. Son No problems noted. Daughter No problems noted. Social History Household Members: None Housing: Apartment Do you presently have visiting nurse or other home services: No Alcohol intake: former Patient Tobacco Use Status: Former Tobacco user Tobacco use type: Cigarette Years Smoked: 25 Smoked in Last 30 Days: No e-Cigarette/Vaping Use: Never Used Second Hand Smoke Exposure: Yes (cigar smoke) Use of substances other than those prescribed or required for medical reasons: No Substance Use Type: Marijuana Advance Directives: Yes Advance Directives on File: Yes Advance Directives Date on File: 07/12/20 service: No Current occupational status: disabled Cognitive needs: No Hearing needs: No Vision needs: Yes Physical Exam ED Vital Signs: Vital Signs - 24 hr 01/01/23 10:31 01/01/23 10:58 01/01/23 11:38 Temperature 99.0 F 99 F Pulse Rate 77 79 74 Respiratory Rate 28 H 17 20 Blood Pressure 136/92 H 143/104 H Pulse Oximetry 92 90 L Oxygen Delivery Method Nasal Cannula Nasal Cannula Oxygen Flow Rate 4 01/01/23 11:56 01/01/23 12:00 01/01/23 13:57 Temperature 98.5 F 100 F Pulse Rate 77 87 Respiratory Rate 18 20 21 H Blood Pressure 118/57 L 115/75 Pulse Oximetry 88 L 89 L 90 L Oxygen Delivery Method Nasal Cannula Nasal Cannula Nasal Cannula Oxygen Flow Rate 4 4 4 BMI result Body Mass Index 40.4 Const General: cooperative, no acute distress, alert and awake Nutritional Appearance: well nourished Orientation/consciousness: patient oriented x3 Limitations: no limitations HENMT Other: patient on 4 liters of oxygen via nasal canula Head: Yes atraumatic Ears: hearing grossly normal bilaterally and external ears normal General nose exam: Normal external nose present, no nasal discharge noted and no epistaxis Face and sinus: Yes normal facial exam, No abrasion and No laceration Mouth: Normal oral and palatal mucosa present, no drooling and no muffled voice Eyes Other: patient has chronic left lower eye lid stye / growth that he has had multiple surgeries on Conjunctivae: conjunctivae normal Pupils: Equal, round and reactive pupils present EOM: EOMs intact bilaterally Neck Neck: Yes normal visual inspection, Yes full ROM and Yes no lymphadenopathy Chest Chest palpation & inspection: normal inspection of the chest Resp Other: patient is on 4 liters of oxygen via nasal canula Effort & Inspection: able to speak in complete sentences and labored Auscultation: diminished lung sounds diffuse Cardio Rate: regular rate Rhythm: regular rhythm GI Inspection: Yes normal to inspection Neuro General: patient oriented x3 and moves all extremities Cranial nerves: Yes Equal, round and reactive pupils present Cognition (Neuro): normal cognition Motor exam (neuro): 5/5 motor strength present throughout Sensory Exam: Normal double simultaneous stimulation for sensation Coordination: [id number] test normal Extrem General: Yes normal to inspection, Yes full ROM and Yes capillary refill normal Psych Appearance: grossly normal Mental Status: mental status grossly normal Affect: normal affect Attitude: cooperative Thought process: Normal thought process present Thought content: Normal thought content present Insight: Good insight present (Psych) Medications Administered Discontinued Medications Generic Name Dose Route Start Last Admin Trade Name Freq PRN Reason Stop Dose Admin Albuterol Sulfate 2.5 mg/ 5 mg 01/01/23 11:35 01/01/23 11:37 Albuterol Sulfate 2.5 mg INHALE 01/01/23 11:36 5 mg ONCE ONE Administration Ceftriaxone Sodium 2 gm/ 50 mls @ 100 mls/hr 01/01/23 12:13 01/01/23 13:19 Sodium Chloride IV 01/01/23 12:42 Infused ONCE ONE Infusion Methylprednisolone Sodium Succinate 60 mg 01/01/23 10:56 01/01/23 11:16 Methylprednisolone Sod Succ 125 Mg/2 Ml Vial IVPUSH 01/01/23 10:57 60 mg ONCE ONE Administration Medical Decision Making Medical Decision Making [facility] Narrative: Patient is a 62 year old assigned male at with a history of COPD on 4 liters of oxygen via nasal cannula at baseline, atrial fib / atrial flutter on coumadin, and CHF presenting to the emergency department today with increased shortness of breath. Patient's physical exam was as noted in the physical exam portion of this note. Patient's blood work showed an elevated BNP of 577 but otherwise unremarkable. Patient's EKG showed atrial flutter which is chronic for the patient. Patient's chest x-ray showed increased hazy opacities in the bilateral mid to lower lungs. Patient's influenza and COVID-19 tests were negative. Patient's RSV test is positive. Patient was given IV Rocephin and solu-medrol. Patient's clinical presentation is not consistent with sepsis (@1400). I spoke with the hospitalist team who agreed to admission. I explained my physical exam findings as well as all test results to the patient. I answered all questions asked by the patient. Patient verbalized agreement and understanding with this treatment plan and admission. Differential Diagnosis Differential Diagnoses: The differential diagnosis associated with the presentation includes RSV Pneumonia URI COPD Exacerbation Admission/Observation Consideration of admission/observation: Escalation of care including admission/observation considered Patient admitted. Consult Healthcare Provider Management of the patient was discussed with: Hospitalist (Agreed to admission as noted in the MDM Rationale portion of this note.) Lab Data [facility] Lab Attestation statement: I reviewed the patient's lab results. My interpretation of these labs are in the MDM Rationale portion of this note. 01/01/23 10:53 01/01/23 10:53 Labs: Lab Results 01/01/23 01/01/23 01/01/23 Range/Units 10:53 11:08 11:18 WBC 8.1 (4.8-10.8) X10*3/uL RBC 6.10 H (4.60-5.80) X10*6/uL Hgb 18.6 H (14.0-18.0) g/dl Hct 56.9 H (42.0-52.0) % MCV 93.3 (80.0-98.0) fL MCH 30.5 (27.0-33.0) pg MCHC 32.7 (31.0-36.0) g/dl RDW 14.6 (11.0-16.0) % Plt Count 154 L D (160-400) X10*3/uL MPV 9.8 (9.4-12.4) fL Immature Gran % (Auto) 0.7 H (0.0-0.4) % Neut % (Auto) 68.9 (45-73) % Lymph % (Auto) 16.7 L (20-40) % [place] % (Auto) 13.2 H (2-11) % Eos % (Auto) 0.1 (0-4) % Baso % (Auto) 0.4 (0-2) % Lymph # (Auto) 1.4 (1.2-4.9) X10*3/uL [place] # (Auto) 1.1 (0.1-1.2) X10*3/uL Eos # (Auto) 0.0 (0.0-0.4) X10*3/uL Baso # (Auto) 0.0 (0.0-0.2) X10*3/uL Abs Immat Gran (auto) 0.06 H (0.00-0.03) X10*3/uL Absolute Neuts (auto) 5.6 (2.0-8.3) x10*3/uL Absolute Nucleated RBC 0.000 (0.0-0.012) X10*3/uL Nucleated RBC % (auto) 0.0 (0.0-0.2) /100WBC PT (11.1-13.3) SEC INR (0.9-1.1) APTT 51.8 H (26.0-36.4) SEC Hold Blue Top Sodium 137 (135-145) mmol/L Potassium 4.1 (3.3-5.1) mmol/L Chloride 104 (96-108) mmol/L Carbon Dioxide 23 (22-29) mmol/L Anion Gap 14 (12-20) BUN 14 (9-16) mg/dL Creatinine 0.86 (0.5-1.4) mg/dL Estim Creat Clear Calc 135.8 Estimated GFR > 60 Random Glucose 135 H (60-115) mg/dL Lactic Acid 2.0 (0.5-2.0) mmol/L Calcium 9.1 D (8.4-10.2) mg/dL Total Bilirubin 1.6 H (0.0-1.0) mg/dL AST 29 (5-37) U/L ALT 21 (0-40) U/L Alkaline Phosphatase 70 (39-117) U/L Troponin I High Sens 5.8 (<3.5-35.0) ng/L B-Natriuretic Peptide 577 H (<100) pg/mL Total Protein 7.3 (6.5-8.0) g/dL Albumin 4.1 (3.5-5.0) g/dL Influenza Type A (PCR) NEGATIVE (Negative) Influenza Type B (PCR) NEGATIVE (Negative) RSV RNA Qual (PCR) POSITIVE A (Negative) SARS-CoV-2 RNA (RT-PCR) NEGATIVE (Negative) 01/01/23 01/01/23 01/01/23 Range/Units 11:34 11:34 13:50 WBC (4.8-10.8) X10*3/uL RBC (4.60-5.80) X10*6/uL Hgb (14.0-18.0) g/dl Hct (42.0-52.0) % MCV (80.0-98.0) fL MCH (27.0-33.0) pg MCHC (31.0-36.0) g/dl RDW (11.0-16.0) % Plt Count (160-400) X10*3/uL MPV (9.4-12.4) fL Immature Gran % (Auto) (0.0-0.4) % Neut % (Auto) (45-73) % Lymph % (Auto) (20-40) % [place] % (Auto) (2-11) % Eos % (Auto) (0-4) % Baso % (Auto) (0-2) % Lymph # (Auto) (1.2-4.9) X10*3/uL [place] # (Auto) (0.1-1.2) X10*3/uL Eos # (Auto) (0.0-0.4) X10*3/uL Baso # (Auto) (0.0-0.2) X10*3/uL Abs Immat Gran (auto) (0.00-0.03) X10*3/uL Absolute Neuts (auto) (2.0-8.3) x10*3/uL Absolute Nucleated RBC (0.0-0.012) X10*3/uL Nucleated RBC % (auto) (0.0-0.2) /100WBC PT 35.2 H D (11.1-13.3) SEC INR 2.9 H D (0.9-1.1) APTT (26.0-36.4) SEC Hold Blue Top Cancelled SEE NOTE Sodium (135-145) mmol/L Potassium (3.3-5.1) mmol/L Chloride (96-108) mmol/L Carbon Dioxide (22-29) mmol/L Anion Gap (12-20) BUN (9-16) mg/dL Creatinine (0.5-1.4) mg/dL Estim Creat Clear Calc Estimated GFR Random Glucose (60-115) mg/dL Lactic Acid (0.5-2.0) mmol/L Calcium (8.4-10.2) mg/dL Total Bilirubin (0.0-1.0) mg/dL AST (5-37) U/L ALT (0-40) U/L Alkaline Phosphatase (39-117) U/L Troponin I High Sens 8.1 (<3.5-35.0) ng/L B-Natriuretic Peptide (<100) pg/mL Total Protein (6.5-8.0) g/dL Albumin (3.5-5.0) g/dL Influenza Type A (PCR) (Negative) Influenza Type B (PCR) (Negative) RSV RNA Qual (PCR) (Negative) SARS-CoV-2 RNA (RT-PCR) (Negative) Independent Interpretation I performed an independent interpretation of an: EKG and Plain X-Ray Interpretation: My interpretation is in agreement with the radiologist's impression of this imaging study. EXAMINATION: XR CHEST CLINICAL INFORMATION: Shortness of breath. COMPARISON: Chest radiographs of 05/09/2022. CT chest of 07/12/2020. TECHNIQUE: 3 frontal views of the chest was obtained. FINDINGS: Redemonstration of advanced emphysematous changes with bilateral chronic reticulonodular changes and bronchiectasis. Increased hazy opacities in the bilateral mid to lower lungs may represent a superimposed infectious/inflammatory process. No gross pleural effusion. There is no gross pneumothorax. Enlarged cardiac silhouette. XR/XR chest 1V IMPRESSION: Redemonstration of advanced emphysematous changes with bilateral chronic reticulonodular changes and bronchiectasis. Increased hazy opacities in the bilateral mid to lower lungs may represent a superimposed infectious/inflammatory process. Dictated By: Felicia Park MD Signed By: Electronically signed by Felicia Park MD 01/01/23 1318 Vent. Rate: 081 BPM Atrial Rate: 394 BPM P-R Int: 000 ms QRS Dur: 114 ms QT Int: 380 ms P-R-T Axes: 000 088 -02 degrees QTc Int: 441 ms Atrial fibrillation with premature ventricular or aberrantly conducted complexes Incomplete right bundle branch block Abnormal QRS-T angle, consider primary T wave abnormality Abnormal ECG When compared with ECG of 12-MAY-2022 10:38, No significant changes seen Electronically Signed By:JESUS MANUEL VERDUZCO MD Dictated By: Tucker Verduzco MD Signed By: Electronically signed by Tucker Verduzco MD 01/01/23 4055 Radiology Impression Discussion of test interpretation with radiology: I have reviewed the radiologist's reading. Critical Care Time Critical Care Time Critical Care Time: Yes Total Critical Care Time: 55 Attestation: I spent 55 minutes of Critical Care Time with this patient. This does not include time spent on separately reported billable procedures. Discharge Plan Discharge Clinical Impression: COPD (chronic obstructive pulmonary disease), Respiratory syncytial virus (RSV) Patient Disposition: Admitted As Inpatient Prescriptions: No Action losartan 100 mg tablet 100 mg PO DAILY Qty: 30 0RF rosuvastatin 20 mg tablet 20 mg PO BEDTIME 90 Days Qty: 90 0RF metoprolol tartrate 100 mg tablet 100 mg PO BID 90 Days Qty: 180 2RF multivitamin Tablet 1 tab PO DAILY vitamin B complex Tablet 1 tab PO DAILY calcium carbonate [Calcium 500] 500 mg calcium (1,250 mg) Tablet 500 mg PO DAILY warfarin 5 mg tablet 5 mg PO MOTH warfarin 5 mg tablet 10 mg PO SUTUWEFRSA aspirin [Adult Low Dose Aspirin] 81 mg tablet,delayed release (DR/EC) 81 mg PO DAILY omega-3 fatty acids-fish oil [Fish Oil] 360-1,200 mg capsule 1 cap PO DAILY magnesium 200 mg tablet 400 mg PO DAILY cholecalciferol (vitamin D3) 50 mcg (2,000 unit) capsule 50 mcg PO DAILY bumetanide 2 mg tablet 2 mg PO BID (DME) Oxygen Home Use Kit See Rx Instructions .Route Rx Instructions: As directed Anoro Ellipta 62.5-25 mcg/actuation blister with device 1 inh inhalation DAILY Qty: 60 11RF
[2023-01-01 11:02] LABS: MANUAL DIFF FLAG NO
[2023-01-01 11:05] LABS: Basophils Percent Auto 0.4 % (0-2); Eosinophils Percent Auto 0.1 % (0-4); Imm Gran Abs Auto 0.06 X10*3/uL (0.00-0.03); Imm Gran Pct Auto 0.7 % (0.0-0.4); Lymphocytes Absolute Auto 1.4 X10*3/uL (1.2-4.9); Lymphocytes Percent Auto 16.7 % (20-40); Mean Corpuscular HGB Conc 32.7 g/dl (31.0-36.0); Mean Corpuscular Hemoglobin 30.5 pg (27.0-33.0); Mean Corpuscular Volume 93.3 fL (80.0-98.0); Mean Platelet Volume 9.8 fL (9.4-12.4); Monocytes Absolute Auto 1.1 X10*3/uL (0.1-1.2); Monocytes Percent Auto 13.2 % (2-11); Neutrophils Absolute Auto 5.6 x10*3/uL (2.0-8.3); Neutrophils Percent Auto 68.9 % (45-73); Platelet Count 154 X10*3/uL (160-400); Red Cell Distribution Width 14.6 % (11.0-16.0); White Blood Count 8.1 X10*3/uL (4.8-10.8)
[2023-01-01 11:12] LABS: Hematocrit 56.9 % (42.0-52.0)
[2023-01-01] MEDS: methylPREDNISolone Sod Succ 125 MG/2 ML VIAL 60 MG IVPUSH (11:16)
[2023-01-01 11:17] LABS: Alanine Aminotransferase 21 U/L (0-40); Albumin Level 4.1 g/dL (3.5-5.0); Alkaline Phosphatase 70 U/L (39-117); Anion Gap 14 (12-20); Aspartate Amino Transferase 29 U/L (5-37); Bilirubin Total 1.6 mg/dL (0.0-1.0); Blood Urea Nitrogen 14 mg/dL (9-16); Calcium 9.1 mg/dL (8.4-10.2); Carbon Dioxide 23 mmol/L (22-29); Chloride 104 mmol/L (96-108); Creatinine Clr Calc Pharmacy 135.8; Estimated Glomerular Filt Rate > 60; Glucose Random 135 mg/dL (60-115); Hemoglobin 18.6 g/dl (14.0-18.0); Potassium 4.1 mmol/L (3.3-5.1); Sodium 137 mmol/L (135-145); Total Protein 7.3 g/dL (6.5-8.0)
[2023-01-01 11:20] LABS: Partial Thromboplastin Time 51.8 SEC (26.0-36.4)
[2023-01-01] MEDS: Albuterol Sulfate 2.5 MG, Albuterol Sulfate (0.083%) 2.5 MG 5 MG INHALE (11:37)
[2023-01-01 11:42] LABS: B Type Natriuretic Peptide 577 pg/mL (<100)
[2023-01-01 11:43] LABS: Troponin-I High Sensitivity 5.8 ng/L (<3.5-35.0)
[2023-01-01 11:54] LABS: Influenza A PCR NEGATIVE (Negative); Influenza B PCR NEGATIVE (Negative); Resp Syncy Virus RNA Qual PCR POSITIVE (Negative); SARS COV2 PCR INHOUSE NEGATIVE (Negative)
[2023-01-01 11:55] LABS: INTERNATIONAL NORM RATIO 2.9 (0.9-1.1); Prothrombin Time 35.2 SEC (11.1-13.3)
[2023-01-01] MEDS: cefTRIAXone sodium 2 GM in 0.9 % Sodium Chloride 50 ML IV (12:26)
--- NOTE | 2023-01-01 12:37 | PC.NURSE ---
pt sitting up at bedside on 4L NC still. talks full sentences w/mild to moderate SOB. +CMS. no pain. 88% and above- [place] aware sat range
--- NOTE | 2023-01-01 13:38 | PHA.MEDREC ---
Pharmacy Consult ? Medication Reconciliation Pharmacy has completed the medication reconciliation. Patient had a hand written list with him
--- NOTE | 2023-01-01 13:43 | P.HPHOSP_ITS ---
History of Present Illness Date of Service: 01/01/23 Chief Complaint: Shortness of breath 62 year old man presenting with SOB on 4 liters of oxygen at baseline. He reported that his grandson had been sick and he was exposed to him and has had worsening shortness of breath over the last 4 days. He denied fever, chest pain, nausea, bowel with diarrhea, dizziness. Chest x-ray showing advanced emphysematous changes, bronchiectases. Increased hazy opacities in the bilateral mid to lower lungs possibly representing infectious versus inflammatory process. Labs all within acceptable limits. Vital signs stable other than oxygen saturation of 80%, patient placed on 4 L of oxygen. He was given Rocephin, albuterol and solumedrol in the ED. He will be admitted for further management and treatment of hypoxic resp failure secondary to RSV and CAP. Review of Systems 2 Review of Systems: Denies any recent fever chills or decrease in appetite respiratory see HPI cardiovascular is adjustment of any PND or edema gastrointestinal denies any dysphagia abdominal pain nausea vomiting or diarrhea genitourinary denies any dysuria frequency or hematuria musculoskeletal denies any joint pain or swelling neuropsych denies any weakness or seizures all other systems reviewed are negative [facility] Medical History Mitral stenosis Pulmonary hypertension SOB (shortness of breath) Cor pulmonale Dyspnea Oxygen dependent Chronic hypoxemic respiratory failure Sleep apnea COPD (chronic obstructive pulmonary disease) Hyperlipidemia Atrial fibrillation Hypertension, essential Current use of anticoagulant therapy Family History Father No problems noted. Mother No problems noted. Brother No problems noted. Sister Mental health disorder Sister No problems noted. Sister No problems noted. Sister No problems noted. Son No problems noted. Daughter No problems noted. Surgical History History of carpal tunnel surgery History of colonoscopy History of thumb surgery History of mitral valve repair History of umbilical hernia History of tonsillectomy History of vasectomy Household Members: None Housing: Apartment Do you presently have visiting nurse or other home services: No Alcohol intake: former Patient Tobacco Use Status: Former Tobacco user Tobacco use type: Cigarette Years Smoked: 25 Smoked in Last 30 Days: No e-Cigarette/Vaping Use: Never Used Second Hand Smoke Exposure: Yes (cigar smoke) Use of substances other than those prescribed or required for medical reasons: No Substance Use Type: Marijuana Advance Directives: Yes Advance Directives on File: Yes Advance Directives Date on File: 07/12/20 service: No Current occupational status: disabled Cognitive needs: No Hearing needs: No Vision needs: Yes Meds Allergies Allergy/AdvReac Type Severity Reaction Status Date / Time ciprofloxacin [From CIPRO] Allergy Intermediate DIFFICULTY Verified 12/21/22 09:16 BREATHING vancomycin [VANCOMYCIN] Allergy Intermediate RASH, rash Verified 12/21/22 09:16 over whole body Active Medications: Current Medications Acetaminophen (Acetaminophen 325 Mg Tablet) 650 mg PO Q6H PRN PRN Reason: Pain, Mild (Pain Scale 1-3) Albuterol Sulfate (Albuterol Sulfate (0.083%) 2.5 Mg/3 Ml Vial.Neb) 2.5 mg INHALE RQ4H WHILE AWAKE [facility] Aspirin (Aspirin Enteric Coated 81 Mg Tablet.) 81 mg PO DAILY [facility] Bumetanide (Bumetanide 1 Mg Tablet) 2 mg PO BID [facility]; Protocol Calcium Carbonate (Calcium Carbonate 500 Mg Tablet) 500 mg PO DAILY [facility] Heparin Sodium (Porcine) (Heparin Sodium,Porcine 5,000 Unit/Ml Vial) 5,000 unit SUBCUT Q12H [facility] Ceftriaxone Sodium 1 gm/ (Sodium Chloride) 50 mls @ 100 mls/hr IV Q24H [facility] Azithromycin 500 mg/ Sodium (Chloride) 250 mls @ 125 mls/hr IV Q24H [facility] Losartan Potassium (Losartan Potassium 50 Mg Tablet) 100 mg PO DAILY [facility]; Protocol Metoprolol Tartrate (Metoprolol Tartrate 100 Mg Tablet) 100 mg PO BID [facility]; Protocol Multivitamins/Vitamin C (Multivitamin Tablet) 1 tab PO DAILY [facility] Multivitamins/Vitamin C (Multivitamin Tablet) 1 tab PO DAILY [facility] Non-Formulary Medication (Magnesium) 400 mg PO DAILY [facility] Non-Formulary Medication (Rosuvastatin) 20 mg PO BEDTIME [facility] Ondansetron HCl (Ondansetron Hcl 4 Mg/2 Ml Vial) 4 mg IVPUSH Q8H PRN PRN Reason: Nausea and Vomiting Sodium Chloride (0.9 % Sodium Chloride Flush 3 Ml Syringe) 3 ml IVFLUSH QSHIFT [facility] Vitamin D (Cholecalciferol (Vitamin D3) 25 Mcg Tablet) 50 mcg PO DAILY [facility] Warfarin Sodium (Warfarin Sodium 5 Mg Tablet) 5 mg PO MOTH [facility] Warfarin Sodium (Warfarin Sodium 10 Mg Tablet) 10 mg PO SUTUWEFRSA [facility] Home Medications Medication Instructions Recorded Confirmed Last Taken Type aspirin 81 mg tablet,delayed 81 mg PO DAILY 03/12/20 01/01/23 07/12/20 History release (Adult Low Dose Aspirin) cholecalciferol (vitamin D3) 50 50 mcg PO DAILY 03/12/20 01/01/23 07/12/20 History mcg (2,000 unit) capsule magnesium 200 mg tablet 400 mg PO DAILY 03/12/20 01/01/23 07/12/20 History omega-3 fatty acids-fish oil 360 1 cap PO DAILY 03/12/20 01/01/23 07/12/20 History mg-1,200 mg capsule (Fish Oil) multivitamin 1 tab PO DAILY 07/12/20 01/01/23 07/12/20 History Oxygen Home Use 06/14/22 12/11/22 Unknown History bumetanide 2 mg tablet 2 mg PO BID 10/31/22 01/01/23 Unknown History vitamin B complex 1 tab PO DAILY 10/31/22 01/01/23 Unknown History calcium carbonate 500 mg calcium 500 mg PO DAILY 01/01/23 01/01/23 Unknown History (1,250 mg) tablet warfarin 5 mg tablet 5 mg PO MOTH 01/01/23 01/01/23 Unknown History warfarin 5 mg tablet 10 mg PO SUTUWEFRSA 01/01/23 01/01/23 12/31/22 History Physical Exam 2 Vital Signs and Narrative: Vital Signs: Last Vital Signs Temp 98.5 F 01/01/23 12:00 Pulse 77 01/01/23 12:00 Resp 20 01/01/23 12:00 BP 118/57 L 01/01/23 12:00 Pulse Ox 89 L 01/01/23 12:00 O2 Del Method Nasal Cannula 01/01/23 12:00 O2 Flow Rate 4 01/01/23 12:00 Oxygen Flow Rate 4 01/01/23 10:31 BMI result Body Mass Index 40.4 Appearing in no acute distress head is normocephalic atraumatic eyes pupils are PERRLA sclera is anicteric mouth throat mucous membranes are intact and moist neck is supple no lymphadenopathy, no JVD noted lung sounds are clear to auscultation heart regular rate rhythm, clear S1, S2 positive bowel sounds, abdomen is soft, nontender neuro patient is alert x3, no focal deficits Results Labs 01/01/23 10:53 01/01/23 10:53 Labs: Laboratory Results - last 24 hr 01/01/23 01/01/23 01/01/23 10:53 11:08 11:18 MCV 93.3 MCH 30.5 MCHC 32.7 RDW 14.6 Plt Count 154 L D MPV 9.8 Immature Gran % (Auto) 0.7 H Neut % (Auto) 68.9 Lymph % (Auto) 16.7 L [place] % (Auto) 13.2 H Eos % (Auto) 0.1 Baso % (Auto) 0.4 Lymph # (Auto) 1.4 [place] # (Auto) 1.1 Eos # (Auto) 0.0 Baso # (Auto) 0.0 Abs Immat Gran (auto) 0.06 H Absolute Neuts (auto) 5.6 Absolute Nucleated RBC 0.000 Nucleated RBC % (auto) 0.0 PT INR APTT 51.8 H Hold Blue Top Anion Gap 14 Estim Creat Clear Calc 135.8 Estimated GFR > 60 Random Glucose 135 H Lactic Acid 2.0 Calcium 9.1 D Total Bilirubin 1.6 H AST 29 ALT 21 Alkaline Phosphatase 70 B-Natriuretic Peptide 577 H Total Protein 7.3 Albumin 4.1 Influenza Type A (PCR) NEGATIVE Influenza Type B (PCR) NEGATIVE RSV RNA Qual (PCR) POSITIVE A SARS-CoV-2 RNA (RT-PCR) NEGATIVE 01/01/23 01/01/23 11:34 11:34 MCV MCH MCHC RDW Plt Count MPV Immature Gran % (Auto) Neut % (Auto) Lymph % (Auto) [place] % (Auto) Eos % (Auto) Baso % (Auto) Lymph # (Auto) [place] # (Auto) Eos # (Auto) Baso # (Auto) Abs Immat Gran (auto) Absolute Neuts (auto) Absolute Nucleated RBC Nucleated RBC % (auto) PT 35.2 H D INR 2.9 H D APTT Hold Blue Top Cancelled SEE NOTE Anion Gap Estim Creat Clear Calc Estimated GFR Random Glucose Lactic Acid Calcium Total Bilirubin AST ALT Alkaline Phosphatase B-Natriuretic Peptide Total Protein Albumin Influenza Type A (PCR) Influenza Type B (PCR) RSV RNA Qual (PCR) SARS-CoV-2 RNA (RT-PCR) Imaging Radiologist's Impressions: Impressions Chest X-Ray 01/01/23 12:00 IMPRESSION: Redemonstration of advanced emphysematous changes with bilateral chronic reticulonodular changes and bronchiectasis. Increased hazy opacities in the bilateral mid to lower lungs may represent a superimposed infectious/inflammatory process. Assessment and Plan (1) Respiratory syncytial virus (RSV): Status: Acute Plan 62 year old man admitted with acute on chronic hypoxic respiratory failure secondary to RSV and community-acquired pneumonia Acute on chronic hypoxic respiratory failure secondary to RSV and community- acquired pneumonia On 2 L home oxygen, titrate oxygen as needed to keep oxygen saturation greater than 90% Start ceftriaxone and azithromycin for pneumonia As needed albuterol every 4 hours Supportive care for RSV Diastolic heart failure No exacerbation Continue Bumex COPD No exacerbation Albuterol as needed Diabetes mellitus type 2 Sliding scale, ADA diet Hypertension Continue losartan Paroxysmal atrial fibrillation check PT INR daily continue metoprolol and warfarin DVT prophylaxis warfarin Full code Quality Stroke Does the patient have a stroke diagnosis?: No VTE Prior VTE?: No VTE Risk Level:: Medical - moderate - high VTE Device Contraindication: Treatment Not Indicated VTE Drug Contraindication: N/A - Med Ordered
[2023-01-01 14:22] LABS: Troponin-I High Sensitivity 8.1 ng/L (<3.5-35.0)
[2023-01-01] MEDS: Azithromycin 500 MG in 0.9 % Sodium Chloride 250 ML 125 MG IV (15:29)
[2023-01-01 17:34] LABS: Glucose, Whole Blood 177 mg/dL (60-115)
[2023-01-01] MEDS: Warfarin Sodium 5 MG TABLET PO (18:19)
[2023-01-01] MEDS: Insulin Lispro 100 UNIT/ML 3 ML VIAL SUBCUT ×2 (18:20→21:45)
--- NOTE | 2023-01-01 18:27 | PC.NURSE ---
called for report. khushbu escobedo. no transport available at this time- notifying charge- pt will be brought up when a tech is available as they are bringing other patients up now
--- NOTE | 2023-01-01 19:05 | PC.NURSE ---
tech bringing pt to floor now. no distress.
[2023-01-01] MEDS: Albuterol Sulfate (0.083%) 2.5 MG/3 ML VIAL.NEB INHALE (19:34)
[2023-01-01 20:08] LABS: Glucose, Whole Blood 223 mg/dL (60-115)
[2023-01-01] MEDS: Bumetanide 1 MG TABLET 2 MG PO (21:37)
[2023-01-01] MEDS: Atorvastatin Calcium 80 MG TABLET PO (21:37)
[2023-01-01] MEDS: Metoprolol Tartrate 100 MG TABLET PO (21:38)
[2023-01-01] MEDS: 0.9 % Sodium Chloride Flush 3 ML SYRINGE IVFLUSH (21:48)
[2023-01-02] VITALS (10 sets, daily range): BP systolic 117–132; BP diastolic 58–91; PULSE 58–77; RESP 18–20; TEMP 36–36.7; O2SAT 91–93
[2023-01-02 07:13] LABS: Glucose, Whole Blood 146 mg/dL (60-115)
[2023-01-02 07:15] LABS: MANUAL DIFF FLAG NO
[2023-01-02 07:23] LABS: Basophils Percent Auto 0.2 % (0-2); Hemoglobin 18.6 g/dl (14.0-18.0); Imm Gran Abs Auto 0.04 X10*3/uL (0.00-0.03); Imm Gran Pct Auto 0.5 % (0.0-0.4); Lymphocytes Absolute Auto 1.8 X10*3/uL (1.2-4.9); Lymphocytes Percent Auto 20.4 % (20-40); Mean Corpuscular HGB Conc 32.5 g/dl (31.0-36.0); Mean Corpuscular Hemoglobin 30.4 pg (27.0-33.0); Mean Corpuscular Volume 93.6 fL (80.0-98.0); Mean Platelet Volume 9.8 fL (9.4-12.4); Monocytes Absolute Auto 1.3 X10*3/uL (0.1-1.2); Monocytes Percent Auto 14.7 % (2-11); Neutrophils Absolute Auto 5.6 x10*3/uL (2.0-8.3); Neutrophils Percent Auto 64.2 % (45-73); Platelet Count 170 X10*3/uL (160-400); Red Blood Count 6.11 X10*6/uL (4.60-5.80); Red Cell Distribution Width 14.6 % (11.0-16.0); White Blood Count 8.7 X10*3/uL (4.8-10.8)
[2023-01-02 07:31] LABS: Hematocrit 57.2 % (42.0-52.0)
[2023-01-02 07:44] LABS: Alanine Aminotransferase 19 U/L (0-40); Albumin Level 4.1 g/dL (3.5-5.0); Alkaline Phosphatase 67 U/L (39-117); Anion Gap 14 (12-20); Aspartate Amino Transferase 17 U/L (5-37); Bilirubin Total 0.9 mg/dL (0.0-1.0); Blood Urea Nitrogen 21 mg/dL (9-16); Calcium 9.4 mg/dL (8.4-10.2); Carbon Dioxide 27 mmol/L (22-29); Chloride 103 mmol/L (96-108); Estimated Glomerular Filt Rate > 60; Glucose Random 146 mg/dL (60-115); Potassium 4.2 mmol/L (3.3-5.1); Sodium 140 mmol/L (135-145); Total Protein 7.1 g/dL (6.5-8.0)
[2023-01-02 07:47] LABS: INTERNATIONAL NORM RATIO 4.4 (0.9-1.1); Prothrombin Time 53.5 SEC (11.1-13.3)
[2023-01-02] MEDS: Albuterol Sulfate (0.083%) 2.5 MG/3 ML VIAL.NEB INHALE ×4 (08:00→19:19)
--- NOTE | 2023-01-02 08:28 | MHC.IC ---
Pt has RSV. This requires both contact and droplet precautions. Eye gear and mask required.
[2023-01-02] MEDS: Multivitamin TABLET 1 TAB PO (09:26)
[2023-01-02] MEDS: Metoprolol Tartrate 100 MG TABLET PO ×2 (09:26→20:29)
[2023-01-02] MEDS: Aspirin Enteric Coated 81 MG TABLET.DR PO (09:26)
[2023-01-02] MEDS: Losartan Potassium 50 MG TABLET 100 MG PO (09:26)
[2023-01-02] MEDS: Cholecalciferol (Vitamin D3) 25 MCG TABLET 50 MCG PO (09:26)
[2023-01-02] MEDS: Bumetanide 1 MG TABLET 2 MG PO ×2 (09:26→20:28)
[2023-01-02] MEDS: Magnesium Oxide 400 MG TABLET PO (09:26)
--- NOTE | 2023-01-02 09:56 | P.PNIM_ITS ---
Subjective Subjective Date of Service: 01/02/23 Review of Systems Follow-up RSV Feeling better, not as short of breath Out of bed ambulating to bathroom Physical Exam 2 Vital Signs: Vital Signs: Last Vital Signs Temp 97.1 F 01/02/23 07:41 Pulse 69 01/02/23 08:02 Resp 20 01/02/23 08:02 BP 117/61 01/02/23 07:41 Pulse Ox 92 01/02/23 07:41 O2 Del Method Nasal Cannula 01/02/23 07:41 O2 Flow Rate 5 01/02/23 07:41 FiO2 93 01/02/23 03:41 Oxygen Flow Rate 4 01/01/23 10:31 BMI result Body Mass Index 40.3 Appearing in no acute distress lung sounds coarse heart regular rate rhythm, clear S1, S2 positive bowel sounds, abdomen is soft, nontender neuro patient is alert x3, no focal deficits Objective Data Active Medications Acetaminophen (Acetaminophen 325 Mg Tablet) 650 mg PO Q6H PRN PRN Reason: Pain, Mild (Pain Scale 1-3) Albuterol Sulfate (Albuterol Sulfate (0.083%) 2.5 Mg/3 Ml Vial.Neb) 2.5 mg INHALE RQ4H WHILE AWAKE [facility] Last Admin: 01/02/23 08:00 Dose: 2.5 mg Documented By: DMITRY Aspirin (Aspirin Enteric Coated 81 Mg Tablet.) 81 mg PO DAILY [facility] Last Admin: 01/02/23 09:26 Dose: 81 mg Documented By: ISMAEL Atorvastatin Calcium (Atorvastatin Calcium 80 Mg Tablet) 80 mg PO BEDTIME [facility] Last Admin: 01/01/23 21:37 Dose: 80 mg Documented By: MARIBEL Bumetanide (Bumetanide 1 Mg Tablet) 2 mg PO BID [facility]; Protocol Last Admin: 01/02/23 09:26 Dose: 2 mg Documented By: ISMAEL Calcium Carbonate (Calcium Carbonate 500 Mg Tablet) 500 mg PO DAILY [facility] Last Admin: 01/02/23 09:26 Dose: 500 mg Documented By: ISMAEL Dextrose (Dextrose 50 % 25 Gm/50 Ml Syringe) 25 gm IVPUSH Q15M PRN; Protocol PRN Reason: per Hypoglycemia Standing Ord. Glucose (Glucose Gel 15 Gm Gel..Gram.) 15 gm PO Q15M PRN; Protocol PRN Reason: per Hypoglycemia Standing Ord. Ceftriaxone Sodium 1 gm/ (Sodium Chloride) 50 mls @ 100 mls/hr IV Q24H [facility] Azithromycin 500 mg/ Sodium (Chloride) 250 mls @ 125 mls/hr IV Q24H [facility] Last Infusion: 01/01/23 17:42 Dose: Infused Documented By: ISMAEL Influenza Virus Vaccine (Flu Vacc In8288-52(6mos Up)/Pf 0.5 Ml Syringe) 0.5 ml IM .ONCE ONE Stop: 01/02/23 11:01 Insulin Human Lispro (Insulin Lispro 100 Unit/Ml 3 Ml Vial) 0 unit SUBCUT QIDACHS [facility]; Protocol Last Admin: 01/02/23 07:33 Dose: Not Given Documented By: ISMAEL Non-Admin Reason: See Note Losartan Potassium (Losartan Potassium 50 Mg Tablet) 100 mg PO DAILY [facility]; Protocol Last Admin: 01/02/23 09:26 Dose: 100 mg Documented By: ISMAEL Magnesium Oxide (Magnesium Oxide 400 Mg Tablet) 400 mg PO DAILY [facility] Last Admin: 01/02/23 09:26 Dose: 400 mg Documented By: ISMAEL Metoprolol Tartrate (Metoprolol Tartrate 100 Mg Tablet) 100 mg PO BID [facility]; Protocol Last Admin: 01/02/23 09:26 Dose: 100 mg Documented By: ISMAEL Multivitamins/Vitamin C (Multivitamin Tablet) 1 tab PO DAILY [facility] Last Admin: 01/02/23 09:26 Dose: 1 tab Documented By: ISMAEL Ondansetron HCl (Ondansetron Hcl 4 Mg/2 Ml Vial) 4 mg IVPUSH Q8H PRN PRN Reason: Nausea and Vomiting Sodium Chloride (0.9 % Sodium Chloride Flush 3 Ml Syringe) 3 ml IVFLUSH QSHIFT [facility] Last Admin: 01/02/23 07:29 Dose: Not Given Documented By: ISMAEL Non-Admin Reason: See Note Vitamin D (Cholecalciferol (Vitamin D3) 25 Mcg Tablet) 50 mcg PO DAILY [facility] Last Admin: 01/02/23 09:26 Dose: 50 mcg Documented By: ISMAEL Warfarin Sodium (Warfarin Sodium 5 Mg Tablet) 5 mg PO MoTh@1800 [facility] Last Admin: 01/01/23 18:19 Dose: 5 mg Documented By: SIGIFREDO Warfarin Sodium (Warfarin Sodium 10 Mg Tablet) 10 mg PO Oliver@1800 [facility] Labs 01/02/23 06:29 01/02/23 06:29 Labs: Laboratory Results - last 24 hr 01/01/23 01/01/23 01/01/23 10:53 11:08 11:18 MCV 93.3 MCH 30.5 MCHC 32.7 RDW 14.6 Plt Count 154 L D MPV 9.8 Immature Gran % (Auto) 0.7 H Neut % (Auto) 68.9 Lymph % (Auto) 16.7 L [place] % (Auto) 13.2 H Eos % (Auto) 0.1 Baso % (Auto) 0.4 Lymph # (Auto) 1.4 [place] # (Auto) 1.1 Eos # (Auto) 0.0 Baso # (Auto) 0.0 Abs Immat Gran (auto) 0.06 H Absolute Neuts (auto) 5.6 Absolute Nucleated RBC 0.000 Nucleated RBC % (auto) 0.0 PT INR APTT 51.8 H Hold Blue Top Anion Gap 14 Estim Creat Clear Calc 135.8 Estimated GFR > 60 POC Glucose Random Glucose 135 H Lactic Acid 2.0 Calcium 9.1 D Total Bilirubin 1.6 H AST 29 ALT 21 Alkaline Phosphatase 70 B-Natriuretic Peptide 577 H Total Protein 7.3 Albumin 4.1 Influenza Type A (PCR) NEGATIVE Influenza Type B (PCR) NEGATIVE RSV RNA Qual (PCR) POSITIVE A SARS-CoV-2 RNA (RT-PCR) NEGATIVE 01/01/23 01/01/23 01/01/23 11:34 11:34 17:25 MCV MCH MCHC RDW Plt Count MPV Immature Gran % (Auto) Neut % (Auto) Lymph % (Auto) [place] % (Auto) Eos % (Auto) Baso % (Auto) Lymph # (Auto) [place] # (Auto) Eos # (Auto) Baso # (Auto) Abs Immat Gran (auto) Absolute Neuts (auto) Absolute Nucleated RBC Nucleated RBC % (auto) PT 35.2 H D INR 2.9 H D APTT Hold Blue Top Cancelled SEE NOTE Anion Gap Estim Creat Clear Calc Estimated GFR POC Glucose 177 H Random Glucose Lactic Acid Calcium Total Bilirubin AST ALT Alkaline Phosphatase B-Natriuretic Peptide Total Protein Albumin Influenza Type A (PCR) Influenza Type B (PCR) RSV RNA Qual (PCR) SARS-CoV-2 RNA (RT-PCR) 01/01/23 01/02/23 01/02/23 20:00 06:29 06:54 MCV 93.6 MCH 30.4 MCHC 32.5 RDW 14.6 Plt Count 170 MPV 9.8 Immature Gran % (Auto) 0.5 H Neut % (Auto) 64.2 Lymph % (Auto) 20.4 [place] % (Auto) 14.7 H Eos % (Auto) 0.0 Baso % (Auto) 0.2 Lymph # (Auto) 1.8 [place] # (Auto) 1.3 H Eos # (Auto) 0.0 Baso # (Auto) 0.0 Abs Immat Gran (auto) 0.04 H Absolute Neuts (auto) 5.6 Absolute Nucleated RBC 0.000 Nucleated RBC % (auto) 0.0 PT 53.5 H D INR 4.4 H APTT Hold Blue Top Anion Gap 14 Estim Creat Clear Calc 134.0 Estimated GFR > 60 POC Glucose 223 H 146 H Random Glucose 146 H Lactic Acid Calcium 9.4 Total Bilirubin 0.9 AST 17 ALT 19 Alkaline Phosphatase 67 B-Natriuretic Peptide Total Protein 7.1 Albumin 4.1 Influenza Type A (PCR) Influenza Type B (PCR) RSV RNA Qual (PCR) SARS-CoV-2 RNA (RT-PCR) Assessment and Plan (1) Respiratory syncytial virus (RSV): Status: Acute Plan 62 year old man admitted with acute on chronic hypoxic respiratory failure secondary to RSV and community-acquired pneumonia Acute on chronic hypoxic respiratory failure secondary to RSV and community- acquired pneumonia On 2 L home oxygen, titrate oxygen as needed to keep oxygen saturation greater than 90% Continue ceftriaxone and azithromycin for pneumonia As needed albuterol every 4 hours Supportive care for RSV Mucinex for dry cough Supratherapeutic INR INR 4.4 Hold warfarin for today Repeat tomorrow Paroxysmal atrial fibrillation check PT INR daily continue metoprolol and warfarin Diastolic heart failure No exacerbation Continue Bumex COPD No exacerbation Albuterol as needed Diabetes mellitus type 2 Sliding scale, ADA diet Hypertension Continue losartan Paroxysmal atrial fibrillation check PT INR daily continue metoprolol and warfarin DVT prophylaxis warfarin Attending Dr. Luz Full code Continue hospitalization for treatment of RSV had requiring an increase in oxygen and IV antibiotics for pneumonia. This could not be done at a lesser acute setting Quality Stroke Does the patient have a stroke diagnosis?: No VTE Prior VTE?: No VTE Risk Level:: Medical - moderate - high VTE Device Contraindication: Treatment Not Indicated VTE Drug Contraindication: N/A - Med Ordered
[2023-01-02] MEDS: guaiFENesin LA 600 MG TAB.ER.12H PO ×2 (10:56→20:28)
[2023-01-02 11:01] LABS: Glucose, Whole Blood 145 mg/dL (60-115)
[2023-01-02] MEDS: cefTRIAXone sodium 1 GM in 0.9 % Sodium Chloride 50 ML IV (11:54)
--- NOTE | 2023-01-02 12:51 | MHC.CM.PN ---
IMM 01/02/2023, EMR REVIEWED, PT W/RSV/RESP FAILURE, CM MET W/PT WHO IS A&OX4, PT REPORTS HE IS INDEP W/ALL CARE, USES A CANE AND 4L HOME O2 W/LINCARE, PT DENIES HAVING ANY SERVICES AND DECLINES NEED, PT REPORTS HE HAS GIVEN HIMSELF IV ABX AT HOME AND DOES NOT FEEL HE NEEDS HELP, PT ALSO STILL DRIVING AND PLANS TO SELF TRANSPORT ON DC. PT VERIFIES PCP IS JOAN FERRERA, FULLY COVID NJ'D AND HIS SISTER IS HIS HCP, COPY TO BE FAXED FROM [facility] MEDICAL RECORDS TO CM OFFICE
[2023-01-02] MEDS: Azithromycin 500 MG in 0.9 % Sodium Chloride 250 ML 125 MG IV (13:02)
[2023-01-02 16:24] LABS: Glucose, Whole Blood 105 mg/dL (60-115)
[2023-01-02] MEDS: Atorvastatin Calcium 80 MG TABLET PO (20:28)
[2023-01-02 22:25] LABS: Glucose, Whole Blood 111 mg/dL (60-115)
[2023-01-03] VITALS (13 sets, daily range): BP systolic 109–165; BP diastolic 65–85; PULSE 57–84; RESP 14–20; TEMP 36.2–37; O2SAT 90–94
[2023-01-03 07:32] LABS: Glucose, Whole Blood 120 mg/dL (60-115)
[2023-01-03] MEDS: Albuterol Sulfate (0.083%) 2.5 MG/3 ML VIAL.NEB INHALE ×4 (08:04→19:24)
[2023-01-03 08:11] LABS: INTERNATIONAL NORM RATIO 2.9 (0.9-1.1)
[2023-01-03] MEDS: Multivitamin TABLET 1 TAB PO (08:47)
[2023-01-03] MEDS: Metoprolol Tartrate 100 MG TABLET PO ×2 (08:47→20:25)
[2023-01-03] MEDS: Aspirin Enteric Coated 81 MG TABLET.DR PO (08:47)
[2023-01-03] MEDS: Cholecalciferol (Vitamin D3) 25 MCG TABLET 50 MCG PO (08:47)
[2023-01-03] MEDS: Losartan Potassium 50 MG TABLET 100 MG PO (08:47)
[2023-01-03] MEDS: guaiFENesin LA 600 MG TAB.ER.12H PO ×2 (08:47→20:25)
[2023-01-03] MEDS: Magnesium Oxide 400 MG TABLET PO (08:47)
[2023-01-03] MEDS: Bumetanide 1 MG TABLET 2 MG PO ×2 (08:48→20:25)
[2023-01-03] MEDS: 0.9 % Sodium Chloride Flush 3 ML SYRINGE IVFLUSH ×2 (08:48→20:26)
[2023-01-03 11:17] LABS: Glucose, Whole Blood 143 mg/dL (60-115)
[2023-01-03] MEDS: cefTRIAXone sodium 1 GM in 0.9 % Sodium Chloride 50 ML IV (11:43)
--- NOTE | 2023-01-03 13:59 | MHC.CM.PN ---
EMR REVIEWED, PER HOSPITALIST PT STILL W/SOB AND WINDED W/MINIMAL EXERTION, NO PLAN FOR DC AT THIS TIME, PLAN REMAINS FOR HOME SELF CARE ONCE MEDICALLY CLEARED, CM WILL CONT TO FOLLOW DC NEEDS.
[2023-01-03] MEDS: Azithromycin 500 MG in 0.9 % Sodium Chloride 250 ML 125 MG IV (14:32)
--- NOTE | 2023-01-03 14:58 | P.CDIM_ITS ---
PROVIDER RESPONSE TEXT: To clarify, the appropriate diagnosis supported by the clinical indicators: Obesity Due to excess calories QUERY TEXT: PHYSICIAN'S DOCUMENTATION REQUEST Date of Query: 01/03/2023 12:53 PM EST Patient Name: Ketan Cho Admit Date: 01/01/2023 Dear Xiomara Hendrix, A review of the medical record indicates additional documentation may be needed. Please review below and update the documentation accordingly. Clinical Indicators: Nursing assessment Height and Weight: BMI 40.3 Extreme obesity Class III 142.5kg If possible, please provide an associated diagnosis related to the abnormal BMI, such as: Obesity Due to excess calories Obesity Due to other cause Specify the other cause Severe or Morbid Obesity With alveolar hypoventilation Severe or Morbid Obesity Without alveolar hypoventilation BMI is not significant Other (explain) Clinically unable to determine (explain) Thank you, Radha Maloney, CCS, CDIS Use of terms such as suspected, likely, concern for, or probable (associated with a specific diagnosi s that is being evaluated, monitored, or treated as if it exists) are acceptable and can be coded in the inpatient se tting, when documented at the time of discharge. Please use your independent medical judgment in providing your response. THIS QUERY IS PART OF THE PERMANENT MEDICAL RECORD
--- NOTE | 2023-01-03 16:48 | HO.PM.IMPN ---
Subjective Subjective Date of Service: 01/03/23 Interval History: COPD exacerbation, RSV Review of Systems Patient still short of breath with talking, talking in minimal sentences, get short of breath with minimal exertion. Denies any chest pain or dizziness or fever or chills Physical Exam Vital Signs: Vital Signs: Last Vital Signs Temp 97.4 F 01/03/23 16:00 Pulse 66 01/03/23 16:00 Resp 14 01/03/23 16:00 BP 127/77 01/03/23 16:00 Pulse Ox 91 L 01/03/23 16:00 O2 Del Method Nasal Cannula 01/03/23 16:00 O2 Flow Rate 2 01/03/23 16:00 FiO2 93 01/02/23 03:41 Oxygen Flow Rate 4 01/01/23 10:31 BMI result Body Mass Index 40.3 Appearance: Alert.? Oriented X3.? . cvs: rrr, [id number] , no murmur res: cair entry dimished ,has b/l wheezing abd: no rebound or guarding ,nt, bs present. ext pulses present , no cyanosis. neuro: axo3 , nonfocal. Objective Data Active Medications Acetaminophen (Acetaminophen 325 Mg Tablet) 650 mg PO Q6H PRN PRN Reason: Pain, Mild (Pain Scale 1-3) Albuterol Sulfate (Albuterol Sulfate (0.083%) 2.5 Mg/3 Ml Vial.Neb) 2.5 mg INHALE RQ4H WHILE AWAKE [facility] Last Admin: 01/03/23 15:16 Dose: 2.5 mg Documented By: OZ Aspirin (Aspirin Enteric Coated 81 Mg Tablet.) 81 mg PO DAILY [facility] Last Admin: 01/03/23 08:47 Dose: 81 mg Documented By: RADHA Atorvastatin Calcium (Atorvastatin Calcium 80 Mg Tablet) 80 mg PO BEDTIME [facility] Last Admin: 01/02/23 20:28 Dose: 80 mg Documented By: CALI Bumetanide (Bumetanide 1 Mg Tablet) 2 mg PO BID [facility]; Protocol Last Admin: 01/03/23 08:48 Dose: 2 mg Documented By: RADHA Calcium Carbonate (Calcium Carbonate 500 Mg Tablet) 500 mg PO DAILY [facility] Last Admin: 01/03/23 08:47 Dose: 500 mg Documented By: RADHA Dextrose (Dextrose 50 % 25 Gm/50 Ml Syringe) 25 gm IVPUSH Q15M PRN; Protocol PRN Reason: per Hypoglycemia Standing Ord. Glucose (Glucose Gel 15 Gm Gel..Gram.) 15 gm PO Q15M PRN; Protocol PRN Reason: per Hypoglycemia Standing Ord. Guaifenesin (Guaifenesin La 600 Mg Tab.Er.12h) 600 mg PO BID [facility] Last Admin: 01/03/23 08:47 Dose: 600 mg Documented By: RADHA Ceftriaxone Sodium 1 gm/ (Sodium Chloride) 50 mls @ 100 mls/hr IV Q24H [facility] Last Infusion: 01/03/23 12:14 Dose: Infused Documented By: RADHA Azithromycin 500 mg/ Sodium (Chloride) 250 mls @ 125 mls/hr IV Q24H [facility] Last Infusion: 01/03/23 16:34 Dose: Infused Documented By: RADHA Insulin Human Lispro (Insulin Lispro 100 Unit/Ml 3 Ml Vial) 0 unit SUBCUT QIDACHS [facility]; Protocol Last Admin: 01/03/23 11:21 Dose: Not Given Documented By: RADHA Non-Admin Reason: No Insulin Coverage Losartan Potassium (Losartan Potassium 50 Mg Tablet) 100 mg PO DAILY [facility]; Protocol Last Admin: 01/03/23 08:47 Dose: 100 mg Documented By: RADHA Magnesium Oxide (Magnesium Oxide 400 Mg Tablet) 400 mg PO DAILY [facility] Last Admin: 01/03/23 08:47 Dose: 400 mg Documented By: RADHA Metoprolol Tartrate (Metoprolol Tartrate 100 Mg Tablet) 100 mg PO BID [facility]; Protocol Last Admin: 01/03/23 08:47 Dose: 100 mg Documented By: RADHA Multivitamins/Vitamin C (Multivitamin Tablet) 1 tab PO DAILY [facility] Last Admin: 01/03/23 08:47 Dose: 1 tab Documented By: RADHA Ondansetron HCl (Ondansetron Hcl 4 Mg/2 Ml Vial) 4 mg IVPUSH Q8H PRN PRN Reason: Nausea and Vomiting Sodium Chloride (0.9 % Sodium Chloride Flush 3 Ml Syringe) 3 ml IVFLUSH QSHIFT [facility] Last Admin: 01/03/23 14:34 Dose: Not Given Documented By: RADHA Non-Admin Reason: IV Running Vitamin D (Cholecalciferol (Vitamin D3) 25 Mcg Tablet) 50 mcg PO DAILY [facility] Last Admin: 01/03/23 08:47 Dose: 50 mcg Documented By: RADHA Warfarin Sodium (Warfarin Sodium 5 Mg Tablet) 5 mg PO DAILY@1800 [facility] Labs 01/02/23 06:29 01/02/23 06:29 Labs: Laboratory Results - last 24 hr 01/02/23 01/03/23 01/03/23 22:20 07:13 07:28 Hold Purple Top SEE NOTE PT 35.0 H D INR 2.9 H POC Glucose 111 120 H 01/03/23 11:11 Hold Purple Top PT INR POC Glucose 143 H Microbiology Microbiology Results: Microbiology 01/01/23 11:18 Blood Culture - Preliminary Blood - Venous No growth after 48 hours. 01/01/23 11:08 Blood Culture - Preliminary Blood - Venous No growth after 48 hours. Assessment and Plan (1) Respiratory syncytial virus (RSV): Status: Acute (2) COPD (chronic obstructive pulmonary disease): Status: Acute Plan 62 year old man admitted with acute on chronic hypoxic respiratory failure secondary to RSV and community-acquired pneumonia Acute on chronic hypoxic respiratory failure secondary to RSV and community-acquired pneumonia On 2 L home oxygen, titrate oxygen as needed to keep oxygen saturation greater than 90% Continue ceftriaxone and azithromycin for pneumonia As needed albuterol every 4 hours Supportive care for RSV Mucinex for dry cough Supratherapeutic INR INR 4.4 Hold warfarin for today Repeat tomorrow Paroxysmal atrial fibrillation check PT INR daily continue metoprolol and warfarin Diastolic heart failure No exacerbation Continue Bumex COPD No exacerbation Albuterol as needed Diabetes mellitus type 2 Sliding scale, ADA diet Hypertension Continue losartan Paroxysmal atrial fibrillation check PT INR daily continue metoprolol and warfarin Continue hospitalization for treatment of RSV had requiring an increase in oxygen and IV antibiotics for pneumonia. This could not be done at a lesser acute setting Quality Stroke Does the patient have a stroke diagnosis?: No VTE Prior VTE?: No VTE Risk Level:: Medical - moderate - high VTE Device Contraindication: Treatment Not Indicated VTE Drug Contraindication: N/A - Med Ordered
[2023-01-03 17:01] LABS: Glucose, Whole Blood 101 mg/dL (60-115)
[2023-01-03 20:20] LABS: Glucose, Whole Blood 137 mg/dL (60-115)
[2023-01-03] MEDS: Atorvastatin Calcium 80 MG TABLET PO (20:25)
[2023-01-04 03:22] VITALS: BP 108/75; PULSE 66; RESP 18; TEMP 36.8; O2SAT 94
[2023-01-04 07:32] VITALS: BP 102/71; PULSE 68; RESP 20; TEMP 36.4; O2SAT 91
[2023-01-04] MEDS: Albuterol Sulfate (0.083%) 2.5 MG/3 ML VIAL.NEB INHALE ×2 (07:51→11:38)
[2023-01-04 07:52] VITALS: PULSE 76; RESP 16; O2SAT 93
[2023-01-04 08:04] LABS: Glucose, Whole Blood 120 mg/dL (60-115)
[2023-01-04 08:15] LABS: Prothrombin Time 23.9 SEC (11.1-13.3)
[2023-01-04] MEDS: Losartan Potassium 50 MG TABLET 100 MG PO (08:57)
[2023-01-04] MEDS: Aspirin Enteric Coated 81 MG TABLET.DR PO (08:57)
[2023-01-04] MEDS: Doxycycline Monohydrate 100 MG CAPSULE PO (08:57)
[2023-01-04] MEDS: Metoprolol Tartrate 100 MG TABLET PO (08:57)
[2023-01-04] MEDS: Multivitamin TABLET 1 TAB PO (08:57)
[2023-01-04] MEDS: Cholecalciferol (Vitamin D3) 25 MCG TABLET 50 MCG PO (08:57)
[2023-01-04] MEDS: guaiFENesin LA 600 MG TAB.ER.12H PO (08:57)
[2023-01-04] MEDS: cefuroxime axetiL 500 MG TABLET PO (08:57)
[2023-01-04] MEDS: Magnesium Oxide 400 MG TABLET PO (08:58)
[2023-01-04] MEDS: Bumetanide 1 MG TABLET 2 MG PO (08:58)
[2023-01-04] MEDS: 0.9 % Sodium Chloride Flush 3 ML SYRINGE IVFLUSH (08:59)
--- NOTE | 2023-01-04 11:24 | PM.DS ---
DS: Providers Provider Date of Service: 01/04/23 Date of admission: 01/01/23 14:34 Date of discharge: 01/04/23 Primary care physician: Gregory Thompson MD Attending physician on discharge: Xiomara Hendrix Discharging clinician: Xiomara Hendrix DS: Diagnosis Discharge Diagnosis (1) Respiratory syncytial virus (RSV): Status: Acute (2) COPD (chronic obstructive pulmonary disease): Status: Acute DS: Summary Hospital Course Hospital Course: 62 year old man presenting with SOB on 4 liters of oxygen at baseline. He reported that his grandson had been sick and he was exposed to him and has had worsening shortness of breath over the last 4 days. He denied fever, chest pain, nausea, bowel with diarrhea, dizziness. Chest x-ray showing advanced emphysematous changes, bronchiectases. Increased hazy opacities in the bilateral mid to lower lungs possibly representing infectious versus inflammatory process. Labs all within acceptable limits. Vital signs stable other than oxygen saturation of 80%, patient placed on 4 L of oxygen. He was given Rocephin, albuterol and solumedrol in the ED. He will be admitted for further management and treatment of hypoxic resp failure secondary to RSV and CAP. hospital course: Patient admitted for acute on chronic hypoxemic respiratory failure secondary to RSV and community-acquired pneumonia -started on IV antibiotics, blood cultures sent. With supportive care patient seems to be improved significantly-shortness of breath improved significantly, no fever. Blood culture negative at 48 hours, patient was switched to p.o. antibiotics upon discharge. Patient will take the 5 days of Ceftin 500 mg p.o. b.i.d. and doxycycline 100 mg p.o. b.i.d. Supratherapeutic INR: Single time INR was 4.4 which seems to be improved by holding 1 day warfarin : inr is 2 range now . In addition azithomycin( can elevated inr) switched to doxycline. Continue home warfarin dose-and monitor INR out patiently. Patient says his goal INR between 2 and 3. plan: Complete5 days of Ceftin 500 mg p.o. b.i.d. and doxycycline 100 mg p.o. b.i.d. Please repeat chest imaging in 3-4 weeks to see resolution of pneumonia. Monitor INR out patiently and further management outpatient. Above management discussed the patient detail length he understand and agreement with the plan, time spent 50 minute. Time Attestation Discharge coordination time: Greater than 30 minutes Quality: Safe Use of Opioids Does Pt have an Active Cancer Diagnosis on the Problem List?: No Quality: Stroke Does the patient have a stroke diagnosis?: No Physical Exam Vital Signs: Vital Signs: Last Vital Signs Temp 97.5 F 01/04/23 07:32 Pulse 76 01/04/23 07:52 Resp 16 01/04/23 07:52 BP 102/71 01/04/23 07:32 Pulse Ox 91 L 01/04/23 07:32 O2 Del Method Nasal Cannula 01/04/23 07:32 O2 Flow Rate 4 01/04/23 07:32 FiO2 93 01/02/23 03:41 Oxygen Flow Rate 4 01/01/23 10:31 BMI result Body Mass Index 40.3 Appearance: Alert.? Oriented X3.? not in distress.? Eyes: Pupils equal, round and reactive to light.? Sclera nonicteric.? ENT: Pharynx normal.? Moist mucous membranes. cvs: rrr, [id number] , no murmur res: clear to auscultation ,no rhonchii or wheezing abd: no rebound or guarding ,nt, bs present. ext pulses present , no cyanosis . neuro: axo3 , nonfocal. DS: Data Data Completed and Pending Labs on day of discharge: Laboratory Results - last 24 hr 01/03/23 01/03/23 01/04/23 16:56 20:11 07:34 Hold Purple Top PT INR POC Glucose 101 137 H 120 H 01/04/23 07:42 Hold Purple Top SEE NOTE PT 23.9 H D INR 2.0 H POC Glucose Preliminary micro results at discharge 01/01/23 11:18 Blood Culture - Preliminary Blood - Venous No growth after 48 hours. 01/01/23 11:08 Blood Culture - Preliminary Blood - Venous No growth after 48 hours. Imaging Chest x-ray: Radiologist's impression: ITS Impressions Chest X-Ray 01/01/23 12:00 IMPRESSION: Redemonstration of advanced emphysematous changes with bilateral chronic reticulonodular changes and bronchiectasis. Increased hazy opacities in the bilateral mid to lower lungs may represent a superimposed infectious/inflammatory process. Discharge Plan Discharge Anticipated Discharge Date/Time: 01/04/23 11:14 Patient Disposition: Home, Self-Care Discharge Diagnosis: pneumonia,suprtherapeutic inr ,rsv Referrals: Gregory Thompson MD [Primary Care Provider] - 1 Week Discharge Medications: New doxycycline monohydrate 100 mg Capsule 100 mg PO Q12H Qty: 10 0RF cefuroxime axetil 500 mg Tablet 500 mg PO Q12H Qty: 10 0RF Continued losartan 100 mg tablet 100 mg PO DAILY Qty: 30 0RF rosuvastatin 20 mg tablet 20 mg PO BEDTIME 90 Days Qty: 90 0RF metoprolol tartrate 100 mg tablet 100 mg PO BID 90 Days Qty: 180 2RF multivitamin Tablet 1 tab PO DAILY vitamin B complex Tablet 1 tab PO DAILY calcium carbonate 500 mg calcium (1,250 mg) Tablet 500 mg PO DAILY warfarin 5 mg tablet 5 mg PO MOTH warfarin 5 mg tablet 10 mg PO SUTUWEFRSA aspirin [Adult Low Dose Aspirin] 81 mg tablet,delayed release (DR/EC) 81 mg PO DAILY omega-3 fatty acids-fish oil [Fish Oil] 360-1,200 mg capsule 1 cap PO DAILY magnesium 200 mg tablet 400 mg PO DAILY cholecalciferol (vitamin D3) 50 mcg (2,000 unit) capsule 50 mcg PO DAILY bumetanide 2 mg tablet 2 mg PO BID (DME) Oxygen Home Use Kit See Rx Instructions .Route Rx Instructions: As directed Anoro Ellipta 62.5-25 mcg/actuation blister with device 1 inh inhalation DAILY Qty: 60 11RF Discharge Orders: Discharge Order (Routine); Ordered 01/04/23 Ordered By: Xiomara Hendrix Diet: Advance to usual diet Activity on Discharge: As tolerated Stand Alone Forms: Patient Portal Discharge page Care Plan Goals: Patient admitted for acute on chronic hypoxemic respiratory failure secondary to RSV and community-acquired pneumonia -started on IV antibiotics, blood cultures sent. With supportive care patient seems to be improved significantly-shortness of breath improved significantly, no fever. Blood culture negative at 48 hours, patient was switched to p.o. antibiotics upon discharge. Patient will take the 5 days of Ceftin 500 mg p.o. b.i.d. and doxycycline 100 mg p.o. b.i.d. Supratherapeutic INR: Single time INR was 4.4 which seems to be improved by holding 1 day warfarin : inr is 2 range now . In addition azithomycin( can elevated inr) switched to doxycline. Continue home warfarin dose-and monitor INR out patiently. Patient says his goal INR between 2 and 3. Health Concerns: As above. Plan of Treatment: As above. Assessment: As above. Patient Instructions: Respiratory Syncytial Virus (DC), Community Acquired Pneumonia (DC), Elevated INR (DC)
[2023-01-04 11:25] VITALS: BP 106/75; RESP 20; TEMP 36.1; O2SAT 91
[2023-01-04 11:26] LABS: Glucose, Whole Blood 144 mg/dL (60-115)
[2023-01-04 11:39] VITALS: PULSE 73; RESP 20; O2SAT 89
--- NOTE | 2023-01-04 11:39 | MHC.CM.PN ---
Pt is medically cleared for D/C home self-care, he will transport himself home.
== END 2023-01-04 15:15 | disposition home or self-care (01) | DRG 193 ==
LOC: HO.ED 11:40 → HO.EDOVER 14:50 → HO.IMC 17:39
PROVIDERS: Physician Assistant Medical; Admitting Provider Nurse Practitioner Acute Care; Emergency Provider Emergency Medicine; PCP Internal Medicine; Visit Provider Internal Medicine
DX: J18.9 Pneumonia, unspecified organism (principal); J96.21 Acute and chronic respiratory failure with hypoxia; J44.0 Chronic obstructive pulmonary disease with (acute) lower respiratory infection; I50.32 Chronic diastolic (congestive) heart failure; Z68.41 Body mass index [BMI] 40.0-44.9, adult; E66.09 Other obesity due to excess calories; I11.0 Hypertensive heart disease with heart failure; E11.9 Type 2 diabetes mellitus without complications; I48.0 Paroxysmal atrial fibrillation; B97.4 Respiratory syncytial virus as the cause of diseases classified elsewhere; R79.1 Abnormal coagulation profile; Z20.822 Contact with and (suspected) exposure to COVID-19; Z87.891 Personal history of nicotine dependence; Z99.81 Dependence on supplemental oxygen; Z79.01 Long term (current) use of anticoagulants; Z79.82 Long term (current) use of aspirin; Z79.899 Other long term (current) drug therapy
CPT/HCPCS: 0241U; 36415; 71045; 80053; 82947; 83605; 83880; 84484; 85025; 85610; 85730; 87040; 90686; 93005; 94640; 94660; 99285; J0456; J0696; J2930

== ENCOUNTER → 2023-01-01 14:34 | Outpatient (BNV) | payer MEDICARE, SELFPAY ==
[2022-08-10 10:10] VITALS: BMI 42.4
== END ==
PROVIDERS: Admitting Provider Nurse Practitioner Acute Care; Emergency Provider Emergency Medicine; PCP Internal Medicine; Visit Provider Nurse Practitioner Acute Care
DX: J96.21 Acute and chronic respiratory failure with hypoxia (principal); J44.9 Chronic obstructive pulmonary disease, unspecified; B33.8 Other specified viral diseases
CPT/HCPCS: 99223; 99232; 99239

== ENCOUNTER 2023-01-10 09:50 | Outpatient (AMB) | payer MEDICARE, SELFPAY ==
[2022-08-10 10:10] VITALS: BMI 42.4
[2023-01-10 10:03] LABS: Prothrombin Time Whole Bld POC 20.6 sec (11.1-13.5); ~PT, ~INR - Anti Coag Clinic 1.7 (0.9-1.1)
--- NOTE | 2023-01-10 10:13 | MHC.OFFVISCO ---
Intake Intake Visit Reasons: Anticoagulation Allergies ciprofloxacin [From CIPRO] Allergy (Intermediate, Verified 01/10/23 09:57) DIFFICULTY BREATHING vancomycin [VANCOMYCIN] Allergy (Intermediate, Verified 01/10/23 09:57) RASH, rash over whole body Medication List - Last Reconciled 01/10/23 by Lia Acosta RN aspirin (Adult Low Dose Aspirin) 81 mg PO DAILY bumetanide 2 mg PO BID calcium carbonate 500 mg PO DAILY cefuroxime axetil 500 mg PO Q12H cholecalciferol (vitamin D3) 50 mcg PO DAILY doxycycline monohydrate 100 mg PO Q12H losartan 100 mg PO DAILY magnesium 400 mg PO DAILY metoprolol tartrate 100 mg PO BID 90 days multivitamin 1 tab PO DAILY omega-3 fatty acids-fish oil 360-1,200 mg (Fish Oil) 1 cap PO DAILY Oxygen Home Use As directed rosuvastatin 20 mg PO BEDTIME 90 days umeclidinium-vilanterol 62.5-25 mcg/actuation (Anoro Ellipta) 1 inh inhalation DAILY vitamin B complex 1 tab PO DAILY warfarin 5 mg PO MOTH warfarin 10 mg PO SUTUWEFRSA Nursing Note PT.DENIES ANY MISSED DOSES, CP OR SX OF BLEEDING. PT.IS DONE WITH ANTIBIOTICS AND STATES THAT HE IS FEELING MUCH BETTER. PT.WAS ABLE TO WALK TO [facility] WITHOUT INCREASE SOB. BOOST TO 10MGM TOMORROW THEN RESUM,E USUAL DOSE AND FOLLOW-UP IN 1 WEEK. NO GREENS 2 DAYS INCREASE REDS. GOOD UNDERSTANDING OF DOSING INSTR. 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
== END 2023-01-10 10:19 | disposition home or self-care (01) ==
LOC: HO.ACS 09:50
PROVIDERS: PCP Internal Medicine; Visit Provider Internal Medicine
DX: Z79.01 Long term (current) use of anticoagulants (principal)

== ENCOUNTER → 2023-01-10 09:50 | Outpatient (BNVA) | payer MEDICARE, SELFPAY ==
[2022-08-10 10:10] VITALS: BMI 42.4
== END ==
PROVIDERS: PCP Internal Medicine; Visit Provider Internal Medicine
DX: I48.19 Other persistent atrial fibrillation (principal); Z79.01 Long term (current) use of anticoagulants; Z51.81 Encounter for therapeutic drug level monitoring
CPT/HCPCS: 85610; 99211

== ENCOUNTER → 2023-01-16 11:38 | Outpatient (BNVA) | payer MEDICARE, SELFPAY ==
[2022-08-10 10:10] VITALS: BMI 42.4
== END ==
PROVIDERS: PCP Internal Medicine; Visit Provider Internal Medicine

== ENCOUNTER 2023-01-18 10:00 | Outpatient (AMB) | payer MEDICARE, SELFPAY ==
[2022-08-10 10:10] VITALS: BMI 42.4
[2023-01-18 10:16] LABS: Prothrombin Time Whole Bld POC 22.9 sec (11.1-13.5); ~PT, ~INR - Anti Coag Clinic 1.9 (0.9-1.1)
--- NOTE | 2023-01-18 10:22 | MHC.OFFVISCO ---
Intake Intake Visit Reasons: Anticoagulation Allergies ciprofloxacin [From CIPRO] Allergy (Intermediate, Verified 01/18/23 10:09) DIFFICULTY BREATHING vancomycin [VANCOMYCIN] Allergy (Intermediate, Verified 01/18/23 10:09) RASH, rash over whole body Medication List - Last Reconciled 01/18/23 by Lia Acosta RN aspirin (Adult Low Dose Aspirin) 81 mg PO DAILY bumetanide 2 mg PO BID calcium carbonate 500 mg PO DAILY cefuroxime axetil 500 mg PO Q12H cholecalciferol (vitamin D3) 50 mcg PO DAILY doxycycline monohydrate 100 mg PO Q12H losartan 100 mg PO DAILY magnesium 400 mg PO DAILY metoprolol tartrate 100 mg PO BID 90 days multivitamin 1 tab PO DAILY omega-3 fatty acids-fish oil 360-1,200 mg (Fish Oil) 1 cap PO DAILY Oxygen Home Use As directed prednisone 20 mg PO BID rosuvastatin 20 mg PO BEDTIME 90 days tobramycin 0.3% drps ophthalmic (eye) umeclidinium-vilanterol 62.5-25 mcg/actuation (Anoro Ellipta) 1 inh inhalation DAILY valacyclovir 500 mg PO DAILY vitamin B complex 1 tab PO DAILY warfarin 5 mg See Protocol PO MOTH warfarin 10 mg See Protocol PO SUTUWEFRSA Nursing Note PT.FINISHES PREDNISONE TODAY. CONTINUING USE OF TOBRAMYCIN OPTHAL.GTTS. NO CP,INCREASED SOB OR SX OF BLEEDING. RESUME USUAL WARFARIN DOSING AND FOLLOW-UP IN 1 WEEK. GOOD UNDERSTANDINGOF DOSING IONSTR. TO CALL [facility] IF ANY FURTHER QUESTIONS/CONCERNS OR IF ADDITIONAL MEDS ORDERED. 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
== END 2023-01-18 10:25 | disposition home or self-care (01) ==
LOC: HO.ACS 10:00
PROVIDERS: PCP Internal Medicine; Visit Provider Internal Medicine
DX: Z79.01 Long term (current) use of anticoagulants (principal)

== ENCOUNTER → 2023-01-18 10:00 | Outpatient (BNVA) | payer MEDICARE, SELFPAY ==
[2022-08-10 10:10] VITALS: BMI 42.4
== END ==
PROVIDERS: PCP Internal Medicine; Visit Provider Internal Medicine
DX: I48.19 Other persistent atrial fibrillation (principal); Z79.01 Long term (current) use of anticoagulants; Z51.81 Encounter for therapeutic drug level monitoring
CPT/HCPCS: 85610; 99211

== ENCOUNTER 2023-01-24 10:08 | Outpatient (AMB) | payer MEDICARE, SELFPAY ==
[2022-08-10 10:10] VITALS: BMI 42.4
--- NOTE | 2023-01-24 10:10 | MHC.PC.OV ---
Vital Signs 01/24/23 10:15 Height 6 ft 2 in Weight 225 lb 8 oz BMI 28.9 BP 110/82 Blood Pressure Location Rt brachial Position Sitting Pulse 53 Pulse Source Pulse Oximeter Pulse Oximetry (%) 94 Oxygen Delivery Method Nasal Cannula Intake Visit Reasons: 4 Month follow up Allergies ciprofloxacin [From CIPRO] Allergy (Intermediate, Verified 01/24/23 10:10) DIFFICULTY BREATHING vancomycin [VANCOMYCIN] Allergy (Intermediate, Verified 01/24/23 10:10) RASH, rash over whole body Medication List - Last Reconciled 01/24/23 by Gregory Thompson MD aspirin (Adult Low Dose Aspirin) 81 mg PO DAILY bumetanide 2 mg PO BID calcium carbonate 500 mg PO DAILY cholecalciferol (vitamin D3) 50 mcg PO DAILY losartan 100 mg PO DAILY magnesium 400 mg PO DAILY metoprolol tartrate 100 mg PO BID 90 days multivitamin 1 tab PO DAILY omega-3 fatty acids-fish oil 360-1,200 mg (Fish Oil) 1 cap PO DAILY Oxygen Home Use As directed rosuvastatin 20 mg PO BEDTIME 90 days tobramycin 0.3% drps ophthalmic (eye) umeclidinium-vilanterol 62.5-25 mcg/actuation (Anoro Ellipta) 1 inh inhalation DAILY valacyclovir 500 mg PO DAILY vitamin B complex 1 tab PO DAILY warfarin 5 mg See Protocol PO MOTH warfarin 10 mg See Protocol PO SUTUWEFRSA Tobacco use date assessed: 01/24/23 Dental Screening Dental Screen Date: 01/24/23 Did you have a dental visit in the last 12 months?: Yes Did you have a dental problem in the last 6 months where you did not have access to dental care?: No Was dental information given to patient?: Patient has dentist HPI 4 Month follow up HPI Details Patient is a 62-year-old gentleman came in today for his regular follow-up appointment Patient was in hospital few days ago because he developed RSV infection and COPD exacerbation He is doing fine now and is back to his baseline Patient has chronic diastolic congestive heart clear and history of mitral valve repair more than 10 years ago, pulmonary hypertension. 3 L of oxygen Severe COPD treated by Pulmonary, his lungs are clear today Hypertension: Blood pressure is well controlled, patient is on amlodipine 5 mg and losartan 100 mg along with metoprolol 100 mg b.i.d. Diabetes: Diet controlled, due for hemoglobin A1c check Lipid disorder: Continue rosuvastatin 20 mg Providers patient is seeing are Dr. Lang sports medicine specialist for COPD He was seeing Dr. Noriega [facility], now seeing Dr. Enriquez [facility] for chronic kidney disease Cardiology if she is Dr. Enriquez Follow-up in May Labs are needed today [facility] Medical History Mitral stenosis Pulmonary hypertension SOB (shortness of breath) Cor pulmonale Dyspnea Oxygen dependent Chronic hypoxemic respiratory failure Sleep apnea COPD (chronic obstructive pulmonary disease) Hyperlipidemia Atrial fibrillation Hypertension, essential Current use of anticoagulant therapy Surgical History History of carpal tunnel surgery History of colonoscopy History of thumb surgery History of mitral valve repair History of umbilical hernia History of tonsillectomy History of vasectomy Family History Father No problems noted. Mother No problems noted. Brother No problems noted. Sister Mental health disorder Sister No problems noted. Sister No problems noted. Sister No problems noted. Son No problems noted. Daughter No problems noted. Social History Household Members: None Housing: Apartment Do you presently have visiting nurse or other home services: No Alcohol intake: former Patient Tobacco Use Status: Former Tobacco user Tobacco use type: Cigarette Years Smoked: 25 e-Cigarette/Vaping Use: Never Used Second Hand Smoke Exposure: Yes (cigar smoke) Substance Use Type: Marijuana Advance Directives Date on File: 07/12/20 service: No Current occupational status: disabled Cognitive needs: No Hearing needs: No Vision needs: Yes Questionnaire Thrive Questionnaire Date Thrive assessed: 01/02/23 AUDIT C Alcohol Use Questionnaire (AUDIT-C) 1. How often do you have a drink containing alcohol?: Monthly or less 2. How many drinks containing alcohol do you have on a typical day when you are drinking?: 1 or 2 3. How often do you have six or more drinks on one occasion?: Never Total Score: 1 Score Reviewed/Action Taken: Yes NIKKO-7 AMB Questionnaire NIKKO-7 Date NIKKO - 7 assessed: 04/04/22 Source: Developed by Drs. Anuj Donohue, Beth Ornelas, Joshua Dodge and colleagues, with an educational saturnino from [employer]. Review of Systems Const Denies chills and Denies fever(s) ENT Denies epistaxis and Denies nasal discharge Card Denies chest pain Resp Denies chest congestion, Denies cough and Denies hemoptysis GI Denies diarrhea and Denies nausea Skin/Breast Denies rash Neuro Reports no additional complaints Psych Reports no additional complaints Endo Reports no additional complaints Physical exam (Primary Care) Vital Signs: Last Vital Signs Pulse 53 01/24/23 10:15 BP 110/82 01/24/23 10:15 Pulse Ox 94 01/24/23 10:15 Oxygen Delivery Method Nasal Cannula 01/24/23 10:15 BMI result Body Mass Index 28.9 Tobacco/Smoking Status: Tobacco use Status Tobacco use date assessed 01/24/23 01/24/23 10:17 Patient Tobacco Use Status Former Tobacco user 01/24/23 10:17 Tobacco use type Cigarette 01/24/23 10:17 e-Cigarette/Vaping Use Never Used 01/24/23 10:17 Thrive Assessment: Date of Thrive Assessment Date Thrive assessed 01/02/23 01/24/23 10:17 Const General: cooperative, comfortable and no acute distress Orientation/consciousness: patient oriented x3 HENMT Other: Nasal cannula in nose Head: Yes normocephalic Eyes General: appearance normal, both eyes and all related structures Neck Neck: Yes supple Resp Effort & Inspection: normal respiratory effort, no cough and no stridor Cardio Heart sounds: S1 normal heart sound present and S2 normal heart sound present Skin General skin exam: turgor normal Neuro General: patient oriented x3, tone normal and moves all extremities Extrem Right lower extremity: no edema Left lower extremity: no edema Assessment and Plan Assessment & Plan (1) Pulmonary hypertension: Code(s): I27.20 - Pulmonary hypertension, unspecified (2) COPD (chronic obstructive pulmonary disease): Code(s): J44.9 - Chronic obstructive pulmonary disease, unspecified Qualifiers: COPD type: emphysema Emphysema type: panlobular Qualified Code(s): J43.1 - Panlobular emphysema (3) Diastolic heart failure: Code(s): I50.30 - Unspecified diastolic (congestive) heart failure Qualifiers: Heart failure chronicity: chronic Qualified Code(s): I50.32 - Chronic diastolic (congestive) heart failure (4) Chronic GERD: Code(s): K21.9 - Gastro-esophageal reflux disease without esophagitis (5) Aortic root dilation: Code(s): I77.810 - Thoracic aortic ectasia (6) Oxygen dependent: Code(s): Z99.81 - Dependence on supplemental oxygen (7) Vasomotor rhinitis: Code(s): J30.0 - Vasomotor rhinitis (8) Persistent atrial fibrillation: Code(s): I48.19 - Other persistent atrial fibrillation (9) Diabetes mellitus type 2 in obese: Code(s): E11.69 - Type 2 diabetes mellitus with other specified complication; E66.9 - Obesity, unspecified (10) Immune deficiency disorder: Code(s): D84.9 - Immunodeficiency, unspecified (11) Current use of anticoagulant therapy: Code(s): Z79.01 - skilled nursing (current) use of anticoagulants (12) Nephropathy: Code(s): N28.9 - Disorder of kidney and ureter, unspecified Plan Patient is a 62-year-old gentleman came in today for his regular follow-up appointment Patient was in hospital few days ago because he developed RSV infection and COPD exacerbation He is doing fine now and is back to his baseline Patient has chronic diastolic congestive heart clear and history of mitral valve repair more than 10 years ago, pulmonary hypertension. 3 L of oxygen Severe COPD treated by Pulmonary, his lungs are clear today Hypertension: Blood pressure is well controlled, patient is on amlodipine 5 mg and losartan 100 mg along with metoprolol 100 mg b.i.d. Diabetes: Diet controlled, due for hemoglobin A1c check Lipid disorder: Continue rosuvastatin 20 mg Providers patient is seeing are Dr. Lang sports medicine specialist for COPD He was seeing Dr. Noriega [facility] Cardiology, now seeing Dr. Enriquez [facility] for chronic kidney disease Cardiology if she is Dr. Enriquez Follow-up in May Labs are needed today Orders: Orders Complete Blood Count Auto Diff Today E11.69 - Type 2 diabetes mellitus with other specified complication, E66.01 - Morbid (severe) obesity due to excess calories, E66.9 - Obesity, unspecified, I27.20 - Pulmonary hypertension, unspecified, I48.19 - Other persistent atrial fibrillation, I50.30 - Unspecified diastolic (congestive) heart failure, I77.810 - Thoracic aortic ectasia, J30.0 - Vasomotor rhinitis, J44.9 - Chronic obstructive pulmonary disease, unspecified, K21.9 - Gastro-esophageal reflux disease without esophagitis, Z99.81 - Dependence on supplemental oxygen Hemoglobin A1c Today D84.9 - Immunodeficiency, unspecified, E11.69 - Type 2 diabetes mellitus with other specified complication, E66.01 - Morbid (severe) obesity due to excess calories, E66.9 - Obesity, unspecified, I27.20 - Pulmonary hypertension, unspecified, I48.19 - Other persistent atrial fibrillation, I50.30 - Unspecified diastolic (congestive) heart failure, I77.810 - Thoracic aortic ectasia, J30.0 - Vasomotor rhinitis, J44.9 - Chronic obstructive pulmonary disease, unspecified, K21.9 - Gastro-esophageal reflux disease without esophagitis, Z99.81 - Dependence on supplemental oxygen Comprehensive Met. Panel Today E11.69 - Type 2 diabetes mellitus with other specified complication, E66.01 - Morbid (severe) obesity due to excess calories, E66.9 - Obesity, unspecified, I27.20 - Pulmonary hypertension, unspecified, I48.19 - Other persistent atrial fibrillation, I50.30 - Unspecified diastolic (congestive) heart failure, I77.810 - Thoracic aortic ectasia, J30.0 - Vasomotor rhinitis, J44.9 - Chronic obstructive pulmonary disease, unspecified, K21.9 - Gastro-esophageal reflux disease without esophagitis, Z99.81 - Dependence on supplemental oxygen LDL Cholesterol Direct Today E11.69 - Type 2 diabetes mellitus with other specified complication, E66.01 - Morbid (severe) obesity due to excess calories, E66.9 - Obesity, unspecified, I27.20 - Pulmonary hypertension, unspecified, I48.19 - Other persistent atrial fibrillation, I50.30 - Unspecified diastolic (congestive) heart failure, I77.810 - Thoracic aortic ectasia, J30.0 - Vasomotor rhinitis, J44.9 - Chronic obstructive pulmonary disease, unspecified, K21.9 - Gastro-esophageal reflux disease without esophagitis, Z99.81 - Dependence on supplemental oxygen Microalbumin, Random (w Creat) Today E11.69 - Type 2 diabetes mellitus with other specified complication, E66.01 - Morbid (severe) obesity due to excess calories, E66.9 - Obesity, unspecified, I27.20 - Pulmonary hypertension, unspecified, I48.19 - Other persistent atrial fibrillation, I50.30 - Unspecified diastolic (congestive) heart failure, I77.810 - Thoracic aortic ectasia, J30.0 - Vasomotor rhinitis, J44.9 - Chronic obstructive pulmonary disease, unspecified, K21.9 - Gastro-esophageal reflux disease without esophagitis, Z99.81 - Dependence on supplemental oxygen Coding Level of Care Code Est Pt Level 4 (42476) Diagnoses Pulmonary hypertension I27.20 Panlobular emphysema J43.1 COPD type: emphysema Emphysema type: panlobular Chronic diastolic heart failure I50.32 Heart failure chronicity: chronic Chronic GERD K21.9 Aortic root dilation I77.810 Oxygen dependent Z99.81 Vasomotor rhinitis J30.0 Persistent atrial fibrillation I48.19 Diabetes mellitus type 2 in obese E11.69; E66.9 Immune deficiency disorder D84.9 Current use of anticoagulant therapy Z79.01 Nephropathy N28.9
[2023-01-24 10:15] VITALS: BP 110/82; PULSE 53; O2SAT 94; BMI 28.9
== END 2023-01-24 16:46 | disposition home or self-care (01) ==
PROVIDERS: PCP Internal Medicine; Visit Provider Internal Medicine
DX: I27.20 Pulmonary hypertension, unspecified (principal); J43.1 Panlobular emphysema; I50.32 Chronic diastolic (congestive) heart failure; I77.810 Thoracic aortic ectasia; I48.19 Other persistent atrial fibrillation; E11.69 Type 2 diabetes mellitus with other specified complication; D84.9 Immunodeficiency, unspecified; K21.9 Gastro-esophageal reflux disease without esophagitis; Z99.81 Dependence on supplemental oxygen; J30.0 Vasomotor rhinitis; E66.9 Obesity, unspecified; Z79.01 Long term (current) use of anticoagulants
CPT/HCPCS: 99214

== ENCOUNTER 2023-01-24 10:33 | Outpatient (REF) | payer MEDICARE, SELFPAY ==
[2022-08-10 10:10] VITALS: BMI 42.4
[2023-01-24 13:07] LABS: MANUAL DIFF FLAG NO
[2023-01-24 13:27] LABS: Basophils Percent Auto 0.5 % (0-2); Eosinophils Absolute Auto 0.1 X10*3/uL (0.0-0.4); Eosinophils Percent Auto 1.1 % (0-4); Hematocrit 54.9 % (42.0-52.0); Hemoglobin 18.2 g/dl (14.0-18.0); Imm Gran Abs Auto 0.11 X10*3/uL (0.00-0.03); Imm Gran Pct Auto 1.4 % (0.0-0.4); Lymphocytes Absolute Auto 1.5 X10*3/uL (1.2-4.9); Lymphocytes Percent Auto 18.9 % (20-40); Mean Corpuscular HGB Conc 33.2 g/dl (31.0-36.0); Mean Corpuscular Hemoglobin 30.4 pg (27.0-33.0); Mean Corpuscular Volume 91.8 fL (80.0-98.0); Mean Platelet Volume 10.9 fL (9.4-12.4); Neutrophils Absolute Auto 5.2 x10*3/uL (2.0-8.3); Neutrophils Percent Auto 65.1 % (45-73); Platelet Count 145 X10*3/uL (160-400); Red Blood Count 5.98 X10*6/uL (4.60-5.80); Red Cell Distribution Width 14.8 % (11.0-16.0)
[2023-01-24 13:42] LABS: Estimated Average Glucose 131 mg/dL; Hemoglobin A1c % 6.2 % (<6.0)
[2023-01-24 13:55] LABS: Alanine Aminotransferase 31 U/L (0-40); Albumin Level 4.1 g/dL (3.5-5.0); Alkaline Phosphatase 76 U/L (39-117); Anion Gap 14 (12-20); Aspartate Amino Transferase 19 U/L (5-37); Bilirubin Total 1.8 mg/dL (0.0-1.0); Blood Urea Nitrogen 20 mg/dL (9-16); Calcium 9.8 mg/dL (8.4-10.2); Carbon Dioxide 25 mmol/L (22-29); Chloride 105 mmol/L (96-108); Estimated Glomerular Filt Rate > 60; Glucose Random 138 mg/dL (60-115); Potassium 3.9 mmol/L (3.3-5.1); Sodium 140 mmol/L (135-145)
[2023-01-24 14:06] LABS: Microalbum/Creatinine Ratio Ur 1796.2 ug/mg cr (<30)
[2023-01-26 05:14] LABS: LDL Cholesterol Direct 90 mg/dL (<100)
== END 2023-01-24 10:34 | disposition home or self-care (01) ==
LOC: HO.HMGCLDS 10:33
PROVIDERS: PCP Internal Medicine; Visit Provider Internal Medicine
DX: E11.69 Type 2 diabetes mellitus with other specified complication (principal); E66.01 Morbid (severe) obesity due to excess calories; I27.20 Pulmonary hypertension, unspecified; I50.30 Unspecified diastolic (congestive) heart failure; I77.810 Thoracic aortic ectasia; I48.19 Other persistent atrial fibrillation; J44.9 Chronic obstructive pulmonary disease, unspecified; J30.0 Vasomotor rhinitis; K21.9 Gastro-esophageal reflux disease without esophagitis; D84.9 Immunodeficiency, unspecified; Z99.81 Dependence on supplemental oxygen
CPT/HCPCS: 36415; 80053; 82043; 82570; 83036; 83721; 85025

== ENCOUNTER 2023-01-25 09:56 | Outpatient (AMB) | payer MEDICARE, SELFPAY ==
[2022-08-10 10:10] VITALS: BMI 42.4
[2023-01-25 10:11] LABS: ~PT, ~INR - Anti Coag Clinic 2.1 (0.9-1.1)
--- NOTE | 2023-01-25 10:18 | MHC.OFFVISCO ---
Intake Intake Visit Reasons: Anticoagulation Allergies ciprofloxacin [From CIPRO] Allergy (Intermediate, Verified 01/25/23 10:01) DIFFICULTY BREATHING vancomycin [VANCOMYCIN] Allergy (Intermediate, Verified 01/25/23 10:01) RASH, rash over whole body Medication List - Last Reconciled 01/25/23 by Donna Escobedo RN aspirin (Adult Low Dose Aspirin) 81 mg PO DAILY bumetanide 2 mg PO BID calcium carbonate 500 mg PO DAILY cholecalciferol (vitamin D3) 50 mcg PO DAILY losartan 100 mg PO DAILY magnesium 400 mg PO DAILY metoprolol tartrate 100 mg PO BID 90 days multivitamin 1 tab PO DAILY omega-3 fatty acids-fish oil 360-1,200 mg (Fish Oil) 1 cap PO DAILY Oxygen Home Use As directed prednisolone acetate 1% 1 drp ophthalmic (eye) BID rosuvastatin 20 mg PO BEDTIME 90 days tobramycin 0.3% drps ophthalmic (eye) umeclidinium-vilanterol 62.5-25 mcg/actuation (Anoro Ellipta) 1 inh inhalation DAILY valacyclovir 500 mg PO DAILY vitamin B complex 1 tab PO DAILY warfarin 5 mg See Protocol PO MOTH warfarin 10 mg See Protocol PO SUTUWEFRSA Nursing Note Amb to [facility], using cane, wearing cont O2 4L N/C, feeling ok, reviewed recent medical, hospitalized after Thanksgiving pt has not been dosing pulm rehab for a couple months now secondary to heart issues Medications and supplements reviewed No new changes in health, diet, medications, or supplements Denies any unusual signs and symptoms of bruising, bleeding Denies any new Chest pain, SOB, or clotting INR: 2.1 just in therapeutic range Nutritional guidance given: balance greens and reds in diet, be consistent Dose: continue usual dosing; 5mg x 2 days and 10mg x 5 days and discussion with pt that he may need weekly increase in dosing F/U INR:1 week Patient verbalizes understanding of instructions given with accurate read back/ teach back of dosing Anti-Coag Initial Assessment Social Hx Patient Tobacco Use Status: Former Tobacco user Tobacco use type: Cigarette alcohol intake: former Questionnaires HAS-BLED Does the patient had uncontrolled Hypertension?: Yes Does the patient have renal disease?: No Does the patient have liver disease?: No Does the patient have a history of stroke?: No Has the patient had major bleeding or predisposition to bleeding?: No Does the patient have labile INRs?: Yes Is the patient over 65 years of age?: No Is the patient on medications that gives them a predisposition to bleeding?: Yes Does the patient use alcohol?: Yes HAS-BLED Score: 4 CHADSVASC Age: <65 Gender: Male Does the patient have a history of CHF?: No Does the patient have a history of Hypertension?: Yes Does the patient have a history of Stroke/TIA/Thromboembolism?: No Does the patient have a history of Vascular Disease (prior FL, PAD or aortic plaque)?: No Does the patient have a history of Diabetes?: Yes CHADS VACS Score: 2 Gerri Prediction Score Rsk VTE Active Cancer: No Previous VTE, excluding superficial vein thrombosis: No Reduced mobility: Yes Already known Thrombophilic Condition: Yes With-in last month Trauma and/or Surgery: No Elderly 70 year or older: No Heart and/or Respiratory Failure: Yes Acute Myocardial infarction and/or Ischemic Stroke: No Acute Infection and/or Rheumatologic Disorder: No Obesity (BMI 30 or greater): Yes Ongoing Hormonal Treatment: No Score: 8 Gerri Score less than 4; Low Risk of VTE Gerri Score 4 or greater; High Risk of VTE Coding Level of Care Code Est Patient Level 1 Diagnoses Current use of anticoagulant therapy Z79.01 Time Spent (min) 15 Assessment & Plan Assessment & Plan (1) Current use of anticoagulant therapy: 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
== END 2023-01-25 12:46 | disposition home or self-care (01) ==
LOC: HO.ACS 09:56
PROVIDERS: PCP Internal Medicine; Visit Provider Internal Medicine
DX: Z79.01 Long term (current) use of anticoagulants (principal)

== ENCOUNTER → 2023-01-25 09:56 | Outpatient (BNVA) | payer MEDICARE, SELFPAY ==
[2022-08-10 10:10] VITALS: BMI 42.4
== END ==
PROVIDERS: PCP Internal Medicine; Visit Provider Internal Medicine
DX: I48.19 Other persistent atrial fibrillation (principal); Z79.01 Long term (current) use of anticoagulants; Z51.81 Encounter for therapeutic drug level monitoring
CPT/HCPCS: 85610; 99211

== ENCOUNTER 2023-02-09 10:27 | Outpatient (AMB) | payer MEDICARE, SELFPAY ==
[2022-08-10 10:10] VITALS: BMI 42.4
--- NOTE | 2023-02-09 10:33 | MHC.OFFVISCO ---
Intake Intake Visit Reasons: Anticoagulation Allergies ciprofloxacin [From CIPRO] Allergy (Intermediate, Verified 02/09/23 10:29) DIFFICULTY BREATHING vancomycin [VANCOMYCIN] Allergy (Intermediate, Verified 02/09/23 10:29) RASH, rash over whole body Medication List - Last Reconciled 02/09/23 by Teresa Philippe RN aspirin (Adult Low Dose Aspirin) 81 mg PO DAILY bumetanide 2 mg PO BID calcium carbonate 500 mg PO DAILY cholecalciferol (vitamin D3) 50 mcg PO DAILY losartan 100 mg PO DAILY magnesium 400 mg PO DAILY metoprolol tartrate 100 mg PO BID 90 days multivitamin 1 tab PO DAILY omega-3 fatty acids-fish oil 360-1,200 mg (Fish Oil) 1 cap PO DAILY Oxygen Home Use As directed rosuvastatin 20 mg PO BEDTIME 90 days tobramycin 0.3% drps ophthalmic (eye) umeclidinium-vilanterol 62.5-25 mcg/actuation (Anoro Ellipta) 1 inh inhalation DAILY valacyclovir 500 mg PO DAILY vitamin B complex 1 tab PO DAILY warfarin 5 mg See Protocol PO MOTH warfarin 10 mg See Protocol PO SUTUWEFRSA Nursing Note INR: 2.8 in therapeutic range of 2-3 pt states missed a 01/31/23 Medications and supplements reviewed- no taking pred eye gtts No changes in health, diet, medications, or supplements, Denies any signs and symptoms of bleeding or bruising or clotting. Bleeding, bruising, clotting discussed Nutritional guidance given Dose: 5mg x 2, 10mg x 5 F/U INR: 2 weeks Patient verbalizes understanding of instructions given pt with c.o gout right ankle and toe, started on xmas, - did not call - terry to do so taking occ tylenol, amb with cane, on cont oxygen Anti-Coag Initial Assessment Social Hx Patient Tobacco Use Status: Former Tobacco user Tobacco use type: Cigarette alcohol intake: former Coding Level of Care Code Est Patient Level 1 Diagnoses Current use of anticoagulant therapy Z79.01 Assessment & Plan Assessment & Plan (1) Current use of anticoagulant therapy: 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
== END 2023-02-09 10:43 | disposition home or self-care (01) ==
LOC: HO.ACS 10:27
PROVIDERS: PCP Internal Medicine; Visit Provider Internal Medicine
DX: Z79.01 Long term (current) use of anticoagulants (principal)

== ENCOUNTER → 2023-02-09 10:27 | Outpatient (BNVA) | payer MEDICARE, SELFPAY ==
[2022-08-10 10:10] VITALS: BMI 42.4
== END ==
PROVIDERS: PCP Internal Medicine; Visit Provider Internal Medicine
DX: I48.19 Other persistent atrial fibrillation (principal); Z79.01 Long term (current) use of anticoagulants; Z51.81 Encounter for therapeutic drug level monitoring
CPT/HCPCS: 85610; 99211

== ENCOUNTER 2023-02-21 09:28 | Outpatient (AMB) | payer MEDICARE, SELFPAY ==
[2022-08-10 10:10] VITALS: BMI 42.4
[2023-02-21 09:40] VITALS: BP 138/76; PULSE 53; O2SAT 94; BMI 42.2
--- NOTE | 2023-02-21 09:40 | MHC.OFFVIS ---
Intake Vital Signs 02/21/23 09:40 Height 6 ft 2 in Weight 328 lb 7.82 oz BMI 42.2 BP 138/76 Blood Pressure Location Lt brachial Position Sitting Pulse 53 Pulse Source Pulse Oximeter Pulse Oximetry (%) 94 Oxygen Delivery Method Nasal Cannula Oxygen Flow Rate 3 Intake Visit Reasons: COPD Allergies ciprofloxacin [From CIPRO] Allergy (Intermediate, Verified 02/21/23 09:40) DIFFICULTY BREATHING vancomycin [VANCOMYCIN] Allergy (Intermediate, Verified 02/21/23 09:40) RASH, rash over whole body HPI HPI Comments History of Present Illness Details The patient is a 62-year-old woman known history of lymphoma in addition to interstitial lung disease. She has had significant shortness of breath and cough. More recently her IgG levels were checked and found to be in the 400s. The patient has had recurrent lower respiratory infections. She is going to be started on IgG therapy by her oncologist most likely. In the meantime we looked at her previous CT scans demonstrating areas of ground-glass opacities and interstitial lung disease. She did undergo bronchoscopy back in 2018 demonstrating chronic inflammatory patchy interstitial infiltrates. It was also noted that she had lymphocytic inflammatory cell infiltrate. Based on the fact that she response to prednisone, evidence of ground-glass opacities on her CT scan and also based on the fact that the biopsy showed chronic inflammatory changes these findings are not consistent with idiopathic pulmonary fibrosis. 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 She does need to some degree of immuno modulation to minimize inflammation and scarring. However, we should address the immunodeficiency prior to doing so. In the meantime the patient has been complaining of worsening cough and shortness of breath. We did review her CT scan of the chest that she had recently demonstrating interval worsening of the interstitial lung disease in some areas of ground-glass opacities now in the upper lung zones which she was free of disease. The patient understands that the best way of knowing was going on will be with a lung biopsy. However, the last time she went to a surgical consultation she decided to hold off after the discussion with the surgeon. Therefore diff point will do additional laboratory data to see if we can identify the process without having her to do a biopsy. At which point the patient would benefit from a immunomodulator to try to minimize to use prednisone as she has not been able to tolerated. Patient also having significant stress because she is going through a divorce. She is drinking significant amount of beer. We talked about how this also can affect the respiratory status. 10/27/2020 the patient is here for pulmonary follow-up visit. Patient is struggling with BiPAP supplies. He has not gotten any supplies for 6 months. He has been calling [employer]. I did call them as well today and did request that they get back to the patient. His BiPAP therapy is crucial. He is very adherent to the therapy in the therapy has been very effective in beneficial for him. Does use it more than 4 hours a night. He still struggling with his volume status. Has not been taking the Bumex and recent size manager enterprise content management whether Center increase it. This point he is running out. I will send a prescription because I do not want see him without the Bumex. But I really want his manager enterprise content management or primary care doctor to start sending instead. I do think patient may have a component of pulmonary hypertension. Secondary causes are being treated with diuresis and also with BiPAP and oxygen. If he has any further pulmonary hypertension may be out of proportion to his underlying pulmonary disease and therefore would benefit from vasodilators therapy. I am encouraged him to talk to his manager enterprise content management about her right heart catheterization in order to further address this. His respiratory therapy has been affecting beneficial. He continues to use it without any adverse effects. 01/26/2021 the patient is here for a pulmonary follow-up visit. overall he is doing better. The patient was evaluated by Cardiology. His diuretics were increased he was given a plan to increase medication if needed. This appears to be working. His amount of lower extremity edema has improved dramatically. Also his shortness of breath has subsequently improved as well. He continues to use oxygen 3 L at rest and 4 L with activity which is reassuring. He continues using the BiPAP at nighttime. The BiPAP therapy continues to be affecting beneficial. Again we talked about the possibility of pulmonary hypertension. if the patient's condition worsens in the future a right heart catheterization may be helpful in assessing the need for vasodilator therapy. at this point I agree since the patient is doing better we can hold off on the semi-invasive any invasive interventions. The patient already got the COVID shot in the posterior. He will get the flu shot today. 06/23/2021 The patient is here a pulmonary office. The patient is doing well. He is working on weight loss. Continues using the BIPAP , AHI 4.5. Uses BIPAP more then 4 hours a day. USing his oxygen continuously. Has been using his respiratory therapy. He did follow up with Cardiology and fwlt to be doing well. Holding off on the right heart catherization. Will request PFTs and start him on Pulmonary rehab. 12/20/2021 the patient is here for a pulmonary follow-up visit. He continues to participate in pulmonary rehabilitation. Has been very beneficial and effective for him. He still continues use the oxygen with good effect. He has been using with activity at 3 L and is able to take it off at rest. He also uses that at nighttime with BiPAP. During the office visit we did go for brief walking oximetry with the portable oxygen concentrator. However, the patient still does not qualify for a conserving device. Therefore he will continue his oxygen supplementation as prescribed. The BiPAP therapy has been affecting beneficial in he continues use it. Will go ahead and start him on maintenance therapy to help him with his obstructive airway disease. 06/14/2022 the patient is here for pulmonary follow-up visit. Overall he is doing well. The patient has been using the BiPAP every night. The BiPAP therapy has been affecting beneficial. The last download data demonstrated that his AHI was 4.5. Therefore, will go ahead increase the pressures from 18-19 cm and the expiratory pressure from 13-14 cm. He will continue using 3 L at nighttime. He needs to get supplies from his [employer] will submit a script for that. In addition to the C is using the diuretics with good effect. He continues use the respiratory medications. Unfortunately the Anoro was too expensive. I did print out a medication assistance for from the pharmaceutical company and will resend the Anoro again to the pharmacy. 10/26/2022 the patient is here for a pulmonary follow-up visit. The patient has been feeling dizzy lately. Just not himself. Denies any vertigo. He is not sure what could be. Although he noticed that in the morning when he was checking his blood pressure the heart rate was only in the 40s. He had him areas in the 50s and 60s at times and is AFib currently rate controlled. Is wondering if the low heart rate could be resulting in the dizziness. He did have blood work yesterday. Sugars seems to be okay. His kidney function since to be okay and electrolytes as well. His Bumex was increased further we did talk about auto toxicity but at this point he denies any decreased hearing and or tinnitus. The patient has been using the oxygen at 4 L with activity with good effect. Also use using the BiPAP at nighttime. He did have a recent echocardiogram done demonstrating that his a RV function is decrease in his mitral valve appears to be stenotic about a moderate to severe based on the report. I did reach out to the Cardiology to see if he can be seen on little bit sooner otherwise patient will continue with current therapy. He is going to continue to monitor the heart rate to make sure that it has not decreased further. He has been on metoprolol for a long time. Also recently he was starting to get more short of breath. His brain nitrate peptide was elevated and his Bumex was increased. This week he does feel better from a breathing standpoint. 02/21/2023 the patient is here for a pulmonary follow-up visit. The patient is doing about the same. Still complaining of dyspnea on exertion. He did follow-up with cardiology. Echocardiogram demonstrated a moderate degree of mitral stenosis. The patient also has evidence of pulmonary hypertension. A lot likely have to do with the valvular disease although he does have some COPD as well. I do believe that treating the mitral valve will help his overall respiratory status. Although, understand that with his underlying respiratory issues it would be higher in the risk profile. I will reach out to his manager enterprise content management to see if there is any alternative rolls the question of a right heart catheterization and also a referral to a tertiary center where he can be provided other potential therapies. I do believe that intervening on the valve may be in his best interest. In the meantime he is okay to go back to pulmonary rehabilitation. He continue using the noninvasive ventilator at nighttime. He will continue using his oxygen as prescribed. COUNT INCLUDES THE [facility] Medical History Mitral stenosis Pulmonary hypertension SOB (shortness of breath) Cor pulmonale Dyspnea Oxygen dependent Chronic hypoxemic respiratory failure Sleep apnea COPD (chronic obstructive pulmonary disease) Hyperlipidemia Atrial fibrillation Hypertension, essential Current use of anticoagulant therapy Surgical History History of carpal tunnel surgery History of colonoscopy History of thumb surgery History of mitral valve repair History of umbilical hernia History of tonsillectomy History of vasectomy Family History Father No problems noted. Mother No problems noted. Brother No problems noted. Sister Mental health disorder Sister No problems noted. Sister No problems noted. Sister No problems noted. Son No problems noted. Daughter No problems noted. Social History Household Members: None Housing: Apartment Do you presently have visiting nurse or other home services: No Alcohol intake: former Patient Tobacco Use Status: Former Tobacco user Tobacco use type: Cigarette Years Smoked: 25 e-Cigarette/Vaping Use: Never Used Second Hand Smoke Exposure: Yes (cigar smoke) Substance Use Type: Marijuana Advance Directives Date on File: 07/12/20 service: No Current occupational status: disabled Cognitive needs: No Hearing needs: No Vision needs: Yes Review of Systems Const Denies chills and Denies fever(s) ENT Denies epistaxis and Denies nasal discharge Card Denies chest pain and Reports dyspnea on exertion Resp Denies chest congestion, Denies cough, Denies hemoptysis and Reports dyspnea on exertion GI Denies diarrhea and Denies nausea Musc Reports myalgias Skin/Breast Denies rash Neuro Reports no additional complaints Psych Reports no additional complaints Endo Reports no additional complaints Physical Exam Vital Signs: Last Vital Signs Pulse 53 02/21/23 09:40 BP 138/76 02/21/23 09:40 Pulse Ox 94 02/21/23 09:40 Oxygen Delivery Method Nasal Cannula 02/21/23 09:40 Oxygen Flow Rate 3 02/21/23 09:40 BMI result Body Mass Index 42.2 Const General: alert HEENT General nose exam: Abnormal external nose present and Nasal discharge present Neck Neck: Yes normal visual inspection, Yes full ROM and Yes no lymphadenopathy Chest Chest palpation & inspection: normal inspection of the chest Resp Effort & Inspection: normal respiratory effort Auscultation: diminished lung sounds Cardio Rate: regular rate Rhythm: abnormal rhythm Heart sounds: S1 normal heart sound present, S2 normal heart sound present and Murmur heart sound present GI Palpation (GI): Soft to palpation and nontender Auscultation: normal bowel sounds Skin General skin exam: rashes and/or lesions noted Extrem General: Yes clubbing and Yes edema Immunizations pneumoc 20-jayesh conj-dip cr(PF) 0.5 mL IM syringe Performing Provider: Niels aLng MD Performing Location: [facility] Administered by: Génesis Locke LPN on 02/21/23 10:18 Dose Route Admin Location Dispensed Lot Number Expiration Date 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 Eligible 02/21/23 Private Assessment & Plan Assessment & Plan (1) Pulmonary hypertension: Code(s): I27.20 - Pulmonary hypertension, unspecified (2) Dyspnea: Code(s): R06.00 - Dyspnea, unspecified Qualifiers: Dyspnea type: dyspnea on exertion Qualified Code(s): R06.00 - Dyspnea, unspecified (3) COPD (chronic obstructive pulmonary disease): Code(s): J44.9 - Chronic obstructive pulmonary disease, unspecified Qualifiers: COPD type: emphysema Emphysema type: panlobular Qualified Code(s): J43.1 - Panlobular emphysema (4) Mitral stenosis: Code(s): I05.0 - Rheumatic mitral stenosis Qualifiers: Cardiac valve disease etiology: etiology unspecified Qualified Code(s): I05.0 - Rheumatic mitral stenosis Plan Continue BiPAP therapy, JL AHI, oxygen 4L Continue oxygen therapy 3 L at rest, 4 L with activity diuresis with BUmex Consider right heart catheterization Pulmonary rehab, phase 2 until evaluated by cardiology continue Anoro daily F/U 3-4 months Orders: Orders Pulmonary Rehab Today J44.9 - Chronic obstructive pulmonary disease, unspecified Pneumococcal 20 Immunization Today Z23 - Encounter for immunization Coding Level of Care Code Est Pt Level 4 (34141) Diagnoses Pulmonary hypertension I27.20 Dyspnea on exertion R06.00 Dyspnea type: dyspnea on exertion Panlobular emphysema J43.1 COPD type: emphysema Emphysema type: panlobular Mitral valve stenosis, unspecified etiology I05.0 Cardiac valve disease etiology: etiology unspecified Time Spent (min) 18
== END 2023-02-21 10:14 | disposition home or self-care (01) ==
PROVIDERS: PCP Internal Medicine; Visit Provider Hospitalist
DX: I27.20 Pulmonary hypertension, unspecified (principal); R06.00 Dyspnea, unspecified; J43.1 Panlobular emphysema; I05.0 Rheumatic mitral stenosis
CPT/HCPCS: 99214

== ENCOUNTER → 2023-02-21 09:28 | Outpatient (BNVA) | payer MEDICARE, SELFPAY ==
[2022-08-10 10:10] VITALS: BMI 42.4
== END ==
PROVIDERS: PCP Internal Medicine; Visit Provider Hospitalist
DX: J43.1 Panlobular emphysema (principal); I27.20 Pulmonary hypertension, unspecified; R06.00 Dyspnea, unspecified; I05.0 Rheumatic mitral stenosis; Z99.81 Dependence on supplemental oxygen; Z23 Encounter for immunization
CPT/HCPCS: 90471; 90677; 99212

== ENCOUNTER 2023-02-23 10:02 | Outpatient (AMB) | payer MEDICARE, SELFPAY ==
[2022-08-10 10:10] VITALS: BMI 42.4
--- NOTE | 2023-02-23 10:14 | MHC.OFFVISCO ---
Intake Intake Visit Reasons: Anticoagulation Allergies ciprofloxacin [From CIPRO] Allergy (Intermediate, Verified 02/21/23 09:40) DIFFICULTY BREATHING vancomycin [VANCOMYCIN] Allergy (Intermediate, Verified 02/21/23 09:40) RASH, rash over whole body Medication List - Last Reconciled 02/23/23 by Teresa Philippe RN aspirin (Adult Low Dose Aspirin) 81 mg PO DAILY bumetanide 2 mg PO BID calcium carbonate 500 mg PO DAILY cholecalciferol (vitamin D3) 50 mcg PO DAILY losartan 100 mg PO DAILY metoprolol tartrate 100 mg PO BID 90 days multivitamin 1 tab PO DAILY omega-3 fatty acids-fish oil 360-1,200 mg (Fish Oil) 1 cap PO DAILY Oxygen Home Use As directed rosuvastatin 20 mg PO BEDTIME 90 days tobramycin-dexamethasone 0.3-0.1 % 1 drp ophthalmic (eye) QID umeclidinium-vilanterol 62.5-25 mcg/actuation (Anoro Ellipta) 1 inh inhalation DAILY valacyclovir 500 mg PO DAILY vitamin B complex 1 tab PO DAILY warfarin 5 mg See Protocol PO MOTH warfarin 10 mg See Protocol PO SUTUWEFRSA Nursing Note INR 3.3-? out of therapeutic range of 2-3 Medications and supplements reviewed Patient status: pt with ulcerated cornea left eye, eye with transplant Medications or supplements: tobramycin 0.3%/dexamethasone 0.1% opth qid started sunday this week- may lower or raise per micromedex Diet: has not had greens or reds Denies any signs and symptoms of bleeding or clotting or unusual bruising Bleeding, bruising, clotting discussed Nutritional guidance given: eat greens to lower Dose: 7.5mg today then cont 5mg x 2, 10mg x5 F/U INR Date : 1 week pt has re-eval pulm rehab on 03/02/23? Patient verbalizing understanding of instructions given. 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
[2023-02-23 10:17] LABS: Prothrombin Time Whole Bld POC 39.2 sec (11.1-13.5); ~PT, ~INR - Anti Coag Clinic 3.3 (0.9-1.1)
== END 2023-02-23 10:30 | disposition home or self-care (01) ==
LOC: HO.ACS 10:02
PROVIDERS: PCP Internal Medicine; Visit Provider Internal Medicine
DX: Z79.01 Long term (current) use of anticoagulants (principal)

== ENCOUNTER → 2023-02-23 10:02 | Outpatient (BNVA) | payer MEDICARE, SELFPAY ==
[2022-08-10 10:10] VITALS: BMI 42.4
== END ==
PROVIDERS: PCP Internal Medicine; Visit Provider Internal Medicine
DX: I48.19 Other persistent atrial fibrillation (principal); Z79.01 Long term (current) use of anticoagulants; Z51.81 Encounter for therapeutic drug level monitoring
CPT/HCPCS: 85610; 99211

== ENCOUNTER 2023-03-02 10:17 | Outpatient (AMB) | payer MEDICARE, SELFPAY ==
[2022-08-10 10:10] VITALS: BMI 42.4
--- NOTE | 2023-03-02 10:22 | MHC.OFFVISCO ---
Intake Intake Visit Reasons: Anticoagulation Allergies ciprofloxacin [From CIPRO] Allergy (Intermediate, Verified 03/02/23 10:18) DIFFICULTY BREATHING vancomycin [VANCOMYCIN] Allergy (Intermediate, Verified 03/02/23 10:18) RASH, rash over whole body Medication List - Last Reconciled 03/02/23 by Delphine Holland RN aspirin (Adult Low Dose Aspirin) 81 mg PO DAILY bumetanide 2 mg PO BID calcium carbonate 500 mg PO DAILY cholecalciferol (vitamin D3) 50 mcg PO DAILY losartan 100 mg PO DAILY metoprolol tartrate 100 mg PO BID 90 days multivitamin 1 tab PO DAILY omega-3 fatty acids-fish oil 360-1,200 mg (Fish Oil) 1 cap PO DAILY Oxygen Home Use As directed rosuvastatin 20 mg PO BEDTIME 90 days tobramycin-dexamethasone 0.3-0.1 % 1 drp ophthalmic (eye) BID umeclidinium-vilanterol 62.5-25 mcg/actuation (Anoro Ellipta) 1 inh inhalation DAILY valacyclovir 500 mg PO BID vitamin B complex 1 tab PO DAILY warfarin 5 mg See Protocol PO MOTH warfarin 10 mg See Protocol PO SUTUWEFRSA Nursing Note Pt states may need heart valve replacement- date and procedure to be determined- and may occur in [place] INR: 3.7 out of therapeutic range - has not had usual greens, had a bout of gout few weeks ago , and walking more Medications and supplements reviewed eye gtts decreased valcyclovir increased pt to have EKG on 03/13/23 , plus an upcoming ECHO Denies any signs and symptoms of bleeding or bruising or clotting. Bleeding, bruising, clotting discussed Nutritional guidance given Dose: decrease dose 7.5 mg today then resume 5mg x 2 days/ 10mg x 5 days F/U INR: 03/13/23 same day as EKG Patient verbalizes understanding of instructions given Anti-Coag Initial Assessment Social Hx Patient Tobacco Use Status: Former Tobacco user Tobacco use type: Cigarette alcohol intake: former Coding Level of Care Code Est Patient Level 1 Diagnoses Current use of anticoagulant therapy Z79.01 Assessment & Plan Assessment & Plan (1) Current use of anticoagulant therapy: Code(s): Z79.01 - halfway (current) use of anticoagulants Category: Medical
[2023-03-02 10:28] LABS: Prothrombin Time Whole Bld POC 43.8 sec (11.1-13.5); ~PT, ~INR - Anti Coag Clinic 3.7 (0.9-1.1)
== END 2023-03-02 11:10 | disposition home or self-care (01) ==
LOC: HO.ACS 10:17
PROVIDERS: PCP Internal Medicine; Visit Provider Internal Medicine
DX: Z79.01 Long term (current) use of anticoagulants (principal)

== ENCOUNTER → 2023-03-02 10:17 | Outpatient (BNVA) | payer MEDICARE, SELFPAY ==
[2022-08-10 10:10] VITALS: BMI 42.4
== END ==
PROVIDERS: PCP Internal Medicine; Visit Provider Internal Medicine
DX: I48.19 Other persistent atrial fibrillation (principal); Z79.01 Long term (current) use of anticoagulants; Z51.81 Encounter for therapeutic drug level monitoring
CPT/HCPCS: 85610; 99211

== ENCOUNTER 2023-03-13 09:09 | Outpatient (AMB) | payer MEDICARE, SELFPAY ==
[2022-08-10 10:10] VITALS: BMI 42.4
[2023-03-13 09:21] LABS: Prothrombin Time Whole Bld POC 37.4 sec (11.1-13.5); ~PT, ~INR - Anti Coag Clinic 3.1 (0.9-1.1)
--- NOTE | 2023-03-13 09:26 | MHC.OFFVISCO ---
Intake Intake Visit Reasons: Anticoagulation Allergies ciprofloxacin [From CIPRO] Allergy (Intermediate, Verified 03/13/23 09:12) DIFFICULTY BREATHING vancomycin [VANCOMYCIN] Allergy (Intermediate, Verified 03/13/23 09:12) RASH, rash over whole body Nursing Note INR 3.1?? out of therapeutic range of 2-3 Medications and supplements reviewed Patient status: Pt offers no complaints, on continuous O2 Going for echo today. Medications or supplements: no changes Diet: same Denies any signs and symptoms of bleeding or clotting or unusual bruising Bleeding, bruising, clotting discussed Nutritional guidance given: Eat greens today Dose: 5mg X2, 10 mg X5 F/U INR Date : 10 days?? Patient verbalizing understanding of instructions given. 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
== END 2023-03-13 09:30 | disposition home or self-care (01) ==
LOC: HO.ACS 09:09
PROVIDERS: PCP Internal Medicine; Visit Provider Internal Medicine
DX: Z79.01 Long term (current) use of anticoagulants (principal)

== ENCOUNTER → 2023-03-13 09:32 | Outpatient (REF) | payer MEDICARE, SELFPAY ==
[2022-08-10 10:10] VITALS: BMI 42.4
--- NOTE | 2023-03-13 09:41 | CA_ITS ---
Transthoracic Echocardiogram Patient (Last, First, Middle): Ketan Cho R Gender: Male Date of : 1960 Age: 62 Procedure Date: 03/13/2023 Procedure Type: Transthoracic Echocardiogram Location: OP Height: 187.96 cm Weight: 147.42 kg BSA: 2.67 m2 Heart Rate: bpm BP: 135 / 85 mmHg Poly Area Supervisor: BRIANNE Referring MD: Maxwell Enriquez MD Symptoms: Z98.890 - Other specified postprocedural states Study Quality: Adequate with contrast ECG Rhythm: Atrial Fibrillation Conclusions: - The left ventricular systolic function is normal. The visually estimated ejection fraction is between 55-60%. - Severe biatrial enlargement. - s/p mitral valve repair. Difficult to assess, but doubt any hemodynamically significant stenosis. - Moderate pulmonary hypertension is present. Findings Procedure Information Contrast agent, definity, is being given per protocol without apparent complications. Left Ventricle Normal left ventricular cavity size. There is mildly increased left ventricular wall thickness. The left ventricular systolic function is normal. The visually estimated ejection fraction is between 55-60%. There is no evidence of regional wall motion abnormalities. Diastolic function is indeterminate on the basis of available data. Right Ventricle Mildly increased right ventricular cavity size. There is low normal right ventricular systolic function. Atria Severe biatrial enlargement. Aortic Valve There is a normal trileaflet aortic valve. There is mild calcification of the aortic valve. There is no aortic valve stenosis. There is no aortic valve regurgitation. Mitral Valve There is no mitral valve regurgitation. s/p mitral valve repair. Difficult to assess, but doubt any hemodynamically significant stenosis. Mean gradient 4mmHg. Pulmonic Valve The pulmonic valve is likely normal. There is trace pulmonic valve regurgitation. Tricuspid Valve There is mild tricuspid valve regurgitation. Moderate pulmonary hypertension is present. Great Vessels The asc aorta is normal in size. Venous The inferior vena cava is mildly dilated and collapses greater than 50% with inspiration. Pericardium/Pleural There is no evidence of pericardial effusion. Prior Study Comparison No significant change compared to prior study dated: 09/22/2022. Measurements 2D Linear Measurements IVSd: 1.28 0.6-0.9/0.6-1.0 cm LVIDd: 4.57 3.9-5.3/4.2-5.9 cm LVIDd Index: 1.71 2.4-3.2/2.2-3.1 cm/m2 LVIDs: 3.80 2.0-3.6 cm LVPWd: 1.46 0.7-1.1 cm LA Diam: 6.50 2.7-3.8/3.0-4.0 cm LAIDs Index: 2.43 1.5-2.3 cm/m2 LV Mass: 306.98 67-162/88-224 g LV Mass Index: 114.97 43-95/49-115 g/m2 LVOT Diam: 2.40 3.0+(-)1.3 cm 2D Systolic Function EF 4C: 53.60 >55% EF 2C: 70.00 >55% EF BiP: 62.40 >55% Mitral Valve MV VTI: 0.50 MV Pk Terry: 1.58 MV Mn Terry: 0.96 MV Pk Grad: 10.00 MV Mn Grad: 4.00 MV Pk E: 1.54 MV Decel Time: 479.00 E'Lateral: 7.94 E'Medial: 8.59 E/E' Med: 17.90 E/E' Lat: 19.40 PHT: 140.00 MVA PHT: 1.57 MVA Continuity: 1.75 Decel Bledsoe: 3.22 Aortic Valve AoV Pk Terry: 1.50 AoV Mn Terry: 1.09 AoV VTI: 0.38 AoV Pk Grad: 9.00 Aov Mn Grad: 5.00 DIPIKA Cont.VTI: 2.26 LVOT LVOT Pk Terry: 0.99 LVOT Mn Terry: 0.64 LVOT VTI: 0.19 LVOT Pk Grad: 4.00 LVOT Mn Grad: 2.00 LVOT Diam: 2.40 LVOT Area: 4.52 Diastolic Function MV Pk E: 1.54 E'Medial: 8.59 E/E' Med: 17.90 E' Laterial: 7.94 E/E' Lat: 19.40 Right Ventricle TAPSE (mm): 20.70 TVS' Terry: 9.35 Tricuspid Valve TR Pk Terry: 3.47 TR Pk Grad: 48.00 RA Press: 8.00 RVSP: 56.00 Great Vessels Aorta Sinus of Valsalva: 4.10 2.0-3.5 cm Ao Asc: 3.80 2.1-3.4 cm Pulmonary Valve PV Pk Terry: 0.80 Peak PV Grad: 3.00 Updated in Other Vendor System with Status of Final Maxwell Enriquez MD electronically signed on 03/15/2023 9:53:27 AM with status of Final
== END ==
LOC: HO.CARD 09:32
PROVIDERS: PCP Internal Medicine; Visit Provider Internal Medicine
DX: I48.19 Other persistent atrial fibrillation (principal); Z51.81 Encounter for therapeutic drug level monitoring; Z79.01 Long term (current) use of anticoagulants; Z98.890 Other specified postprocedural states
CPT/HCPCS: 85610; 93306; 99211; Q9957

== ENCOUNTER → 2023-03-13 09:41 | Outpatient (BNV) | payer MEDICARE, SELFPAY ==
[2022-08-10 10:10] VITALS: BMI 42.4
== END ==
PROVIDERS: PCP Internal Medicine; Visit Provider Internal Medicine
DX: I36.1 Nonrheumatic tricuspid (valve) insufficiency (principal); I48.19 Other persistent atrial fibrillation
CPT/HCPCS: 93306

== ENCOUNTER 2023-03-22 09:17 | Outpatient (AMB) | payer MEDICARE, SELFPAY ==
[2022-08-10 10:10] VITALS: BMI 42.4
[2023-03-22 09:37] LABS: Prothrombin Time Whole Bld POC 42.5 sec (11.1-13.5); ~PT, ~INR - Anti Coag Clinic 3.5 (0.9-1.1)
--- NOTE | 2023-03-22 09:43 | MHC.OFFVISCO ---
Intake Intake Visit Reasons: Anticoagulation Allergies ciprofloxacin [From CIPRO] Allergy (Intermediate, Verified 03/22/23 09:31) DIFFICULTY BREATHING vancomycin [VANCOMYCIN] Allergy (Intermediate, Verified 03/22/23 09:31) RASH, rash over whole body Medication List - Last Reconciled 03/22/23 by Donna Escobedo RN aspirin (Adult Low Dose Aspirin) 81 mg PO DAILY bumetanide 2 mg PO BID calcium carbonate 500 mg PO DAILY cholecalciferol (vitamin D3) 50 mcg PO DAILY losartan 100 mg PO DAILY metoprolol tartrate 100 mg PO BID 90 days multivitamin 1 tab PO DAILY omega-3 fatty acids-fish oil 360-1,200 mg (Fish Oil) 1 cap PO DAILY Oxygen Home Use As directed rosuvastatin 20 mg PO BEDTIME 90 days tobramycin-dexamethasone 0.3-0.1 % 1 drp ophthalmic (eye) BID umeclidinium-vilanterol 62.5-25 mcg/actuation (Anoro Ellipta) 1 inh inhalation DAILY valacyclovir 500 mg PO BID vitamin B complex 1 tab PO DAILY warfarin 5 mg See Protocol PO MOTH 90 days warfarin 10 mg See Protocol PO SUTUWEFRSA 90 days Nursing Note Amb to ACS using cane using cont O2, noted WANG that decreased to regular resp as visit proceeded, pt plan to go to Resp rehab after this visit continues with reddened sclera left eye- 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, 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 Medications and supplements reviewed No other changes in health, diet, medications, or supplements Denies any unusual signs and symptoms of bruising, bleeding Denies any new Chest pain, SOB, or clotting INR: 3.5 above therapeutic range again, possibly med related as he sts he had cooked spinach this week and has been trending up and over range sts had a marijuana cookie last night ?possible raiser Nutritional guidance given: greens today, no spinach, broccoli ok then balance greens and reds in diet Dose: decrease dose today to 2.5mg (vs 5mg) and tomorrow to 7.5 mg (vs 10) then resume usual dosing; 5mg x 2 days and 10mg x 5 days F/U INR: 10 days Patient verbalizes understanding of instructions given with accurate read back/ teach back of dosing Anti-Coag Initial Assessment Social Hx Patient Tobacco Use Status: Former Tobacco user Tobacco use type: Cigarette alcohol intake: former Coding Level of Care Code Est Patient Level 1 Diagnoses Current use of anticoagulant therapy Z79.01 Time Spent (min) 15 Assessment & Plan Assessment & Plan (1) Current use of anticoagulant therapy: Code(s): 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
== END 2023-03-22 09:58 | disposition home or self-care (01) ==
LOC: HO.ACS 09:17
PROVIDERS: PCP Internal Medicine; Visit Provider Internal Medicine
DX: Z79.01 Long term (current) use of anticoagulants (principal)

== ENCOUNTER → 2023-03-22 09:17 | Outpatient (BNVA) | payer MEDICARE, SELFPAY ==
[2022-08-10 10:10] VITALS: BMI 42.4
== END ==
PROVIDERS: PCP Internal Medicine; Visit Provider Internal Medicine
DX: I48.19 Other persistent atrial fibrillation (principal); Z79.01 Long term (current) use of anticoagulants; Z51.81 Encounter for therapeutic drug level monitoring
CPT/HCPCS: 85610; 99211

== ENCOUNTER 2023-04-19 09:59 | Outpatient (AMB) | payer MEDICARE, SELFPAY ==
[2022-08-10 10:10] VITALS: BMI 42.4
[2023-04-19 10:30] LABS: Prothrombin Time Whole Bld POC 45.3 sec (11.1-13.5); ~PT, ~INR - Anti Coag Clinic 3.8 (0.9-1.1)
--- NOTE | 2023-04-19 10:41 | MHC.OFFVISCO ---
Intake Intake Visit Reasons: Anticoagulation Allergies ciprofloxacin [From CIPRO] Allergy (Intermediate, Verified 04/19/23 10:23) DIFFICULTY BREATHING vancomycin [VANCOMYCIN] Allergy (Intermediate, Verified 04/19/23 10:23) RASH, rash over whole body Medication List - Last Reconciled 04/19/23 by Delphine Holland RN aspirin (Adult Low Dose Aspirin) 81 mg PO DAILY bumetanide 2 mg PO BID calcium carbonate 500 mg PO DAILY cholecalciferol (vitamin D3) 50 mcg PO DAILY losartan 100 mg PO DAILY metoprolol tartrate 100 mg PO BID 90 days multivitamin 1 tab PO DAILY omega-3 fatty acids-fish oil 360-1,200 mg (Fish Oil) 1 cap PO DAILY Oxygen Home Use As directed rosuvastatin 20 mg PO BEDTIME 90 days tobramycin-dexamethasone 0.3-0.1 % 1 drp ophthalmic (eye) BID umeclidinium-vilanterol 62.5-25 mcg/actuation (Anoro Ellipta) 1 inh inhalation DAILY valacyclovir 500 mg PO BID vitamin B complex 1 tab PO DAILY warfarin 5 mg See Protocol PO MOTH 90 days warfarin 10 mg See Protocol PO SUTUWEFRSA 90 days Nursing Note INR: 3.8 NOT therapeutic range Medications and supplements reviewed Pt has had gout flare up and is better now - states that is why he has not made Denies any signs and symptoms of bleeding or bruising or clotting. Bleeding, bruising, clotting discussed Nutritional guidance given- REVIEW FOOD LIST WEEKLY, EAT GREENS TODAY Dose: DECREASE DOSE BY 2.5 MG/ 10MG X 2 DAYS/ 7.5MG X 5 DAYS =57.5MG F/U INR: 10 DAYS Patient verbalizes understanding of instructions given Anti-Coag Initial Assessment Social Hx Patient Tobacco Use Status: Former Tobacco user Tobacco use type: Cigarette alcohol intake: former Coding Level of Care Code Est Patient Level 1 Diagnoses Current use of anticoagulant therapy Z79.01 Results AMB INR Fingerstick AMB INR Fingerstick 3.8 Last Edit by Delphine Holland RN on 04/19/23 10:34 NO INTERFAINC MANUAL ENTRY Assessment & Plan Assessment & Plan (1) Current use of anticoagulant therapy: Code(s): Z79.01 - intermediate (current) use of anticoagulants Category: Medical
== END 2023-04-19 10:47 | disposition home or self-care (01) ==
LOC: HO.ACS 09:59
PROVIDERS: PCP Internal Medicine; Visit Provider Internal Medicine
DX: Z79.01 Long term (current) use of anticoagulants (principal)

== ENCOUNTER → 2023-04-19 09:59 | Outpatient (BNVA) | payer MEDICARE, SELFPAY ==
[2022-08-10 10:10] VITALS: BMI 42.4
== END ==
PROVIDERS: PCP Internal Medicine; Visit Provider Internal Medicine
DX: I48.19 Other persistent atrial fibrillation (principal); Z79.01 Long term (current) use of anticoagulants; Z51.81 Encounter for therapeutic drug level monitoring
CPT/HCPCS: 85610; 99211

== ENCOUNTER 2023-04-23 13:08 | Outpatient (AMB) | payer MEDICARE, SELFPAY ==
[2022-08-10 10:10] VITALS: BMI 42.4
[2023-04-23 14:46] VITALS: BP 140/78; PULSE 61; O2SAT 88
--- NOTE | 2023-04-23 14:46 | A.OFFVIS_ITS ---
Intake Vital Signs 04/23/23 14:46 BP 140/78 H Blood Pressure Location Lt brachial Position Sitting Pulse 61 Pulse Source Pulse Oximeter Pulse Oximetry (%) 88 L Oxygen Delivery Method Nasal Cannula Intake Visit Reasons: 6 Mins Walk Evaluation Allergies ciprofloxacin [From CIPRO] Allergy (Intermediate, Verified 05/01/23 09:25) DIFFICULTY BREATHING vancomycin [VANCOMYCIN] Allergy (Intermediate, Verified 05/01/23 09:25) RASH, rash over whole body Medication List - Last Reconciled 04/23/23 by Génesis Locke LPN aspirin (Adult Low Dose Aspirin) 81 mg PO DAILY bumetanide 2 mg PO BID calcium carbonate 500 mg PO DAILY cholecalciferol (vitamin D3) 50 mcg PO DAILY losartan 100 mg PO DAILY metoprolol tartrate 100 mg PO BID 90 days multivitamin 1 tab PO DAILY omega-3 fatty acids-fish oil 360-1,200 mg (Fish Oil) 1 cap PO DAILY Oxygen Home Use As directed rosuvastatin 20 mg PO BEDTIME 90 days tobramycin-dexamethasone 0.3-0.1 % 1 drp ophthalmic (eye) BID umeclidinium-vilanterol 62.5-25 mcg/actuation (Anoro Ellipta) 1 inh inhalation DAILY valacyclovir 500 mg PO BID vitamin B complex 1 tab PO DAILY warfarin 5 mg See Protocol PO MOTH 90 days warfarin 10 mg See Protocol PO SUTUWEFRSA 90 days [facility] Medical History Mitral stenosis Pulmonary hypertension SOB (shortness of breath) Cor pulmonale Dyspnea Oxygen dependent Chronic hypoxemic respiratory failure Sleep apnea COPD (chronic obstructive pulmonary disease) Hyperlipidemia Atrial fibrillation Hypertension, essential Current use of anticoagulant therapy Surgical History History of carpal tunnel surgery History of colonoscopy History of thumb surgery History of mitral valve repair History of umbilical hernia History of tonsillectomy History of vasectomy Family History Father No problems noted. Mother No problems noted. Brother No problems noted. Sister Mental health disorder Sister No problems noted. Sister No problems noted. Sister No problems noted. Son No problems noted. Daughter No problems noted. Social History Household Members: None Housing: Apartment Do you presently have visiting nurse or other home services: No Alcohol intake: former Patient Tobacco Use Status: Former Tobacco user Tobacco use type: Cigarette Years Smoked: 25 e-Cigarette/Vaping Use: Never Used Second Hand Smoke Exposure: Yes (cigar smoke) Substance Use Type: Marijuana Advance Directives Date on File: 07/12/20 service: No Current occupational status: disabled Cognitive needs: No Hearing needs: No Vision needs: Yes Physical Exam Vital Signs: Last Vital Signs Pulse 61 04/23/23 14:46 BP 140/78 H 04/23/23 14:46 Pulse Ox 88 L 04/23/23 14:46 Oxygen Delivery Method Nasal Cannula 04/23/23 14:46 Office Procedures 6 Minute Walk Time:: 13:45 SPO2 % at rest: 87 Pulse at rest: 50 SPO2 % during excercise: 87 Pulse during excercise: 122 SPO2 % after excercise: 93 Pulse after excercise: 86 Distance in yards walked: 120 Cinthia Score: 6 Performance Observations:: Ketan walked on level ground with the assistance of a cane to his R hand. His SPO2 on 4 lpm decreased to 87%, O2 increased to 6 lpm and his SPO2 recovered to 92%. Ketan walked 20 yards and his SPO2 decreased to 88%, O2 increased to 8 lpm, his SPO2 recovered to 94% and he maintained his SPO2 93-94% on 8 lpm. [address] - 6 Minute Walk Assessment & Plan Assessment & Plan (1) COPD (chronic obstructive pulmonary disease): Code(s): J44.9 - Chronic obstructive pulmonary disease, unspecified Qualifiers: COPD type: emphysema Emphysema type: panlobular Qualified Code(s): J43.1 - Panlobular emphysema Plan increase 4L oxygen at rest and 8L with activity. Will request oximizer pendant Orders: Orders AMB 6 minute walk 04/23/23 J44.9 - Chronic obstructive pulmonary disease, unspecified Coding Level of Care Code Established Pt Est Pt Level 1 (37401) Patient Type Established Diagnoses Panlobular emphysema J43.1 COPD type: emphysema Emphysema type: panlobular CPT Codes Coding ([id number]) Comment NURSE VISIT ONLY
[2023-04-23 14:53] VITALS: PULSE 50; O2SAT 87
== END 2023-04-23 14:18 | disposition home or self-care (01) ==
PROVIDERS: PCP Internal Medicine; Visit Provider Hospitalist
DX: J44.9 Chronic obstructive pulmonary disease, unspecified (principal)
CPT/HCPCS: 94618

== ENCOUNTER → 2023-04-23 13:08 | Outpatient (BNVA) | payer MEDICARE, SELFPAY ==
[2022-08-10 10:10] VITALS: BMI 42.4
== END ==
PROVIDERS: PCP Internal Medicine; Visit Provider Hospitalist
DX: J44.9 Chronic obstructive pulmonary disease, unspecified (principal); J43.1 Panlobular emphysema
CPT/HCPCS: 94618; 99211

== ENCOUNTER 2023-05-01 09:19 | Outpatient (AMB) | payer MEDICARE, SELFPAY ==
[2022-08-10 10:10] VITALS: BMI 42.4
[2023-05-01 09:30] LABS: Prothrombin Time Whole Bld POC 31.1 sec (11.1-13.5); ~PT, ~INR - Anti Coag Clinic 2.6 (0.9-1.1)
--- NOTE | 2023-05-01 09:42 | MHC.OFFVISCO ---
Intake Intake Visit Reasons: Anticoagulation Allergies ciprofloxacin [From CIPRO] Allergy (Intermediate, Verified 05/01/23 09:25) DIFFICULTY BREATHING vancomycin [VANCOMYCIN] Allergy (Intermediate, Verified 05/01/23 09:25) RASH, rash over whole body Medication List - Last Reconciled 05/01/23 by Donna Benitez, RN aspirin (Adult Low Dose Aspirin) 81 mg PO DAILY bumetanide 2 mg PO BID calcium carbonate 500 mg PO DAILY cholecalciferol (vitamin D3) 50 mcg PO DAILY losartan 100 mg PO DAILY metoprolol tartrate 100 mg PO BID 90 days multivitamin 1 tab PO DAILY omega-3 fatty acids-fish oil 360-1,200 mg (Fish Oil) 1 cap PO DAILY Oxygen Home Use As directed rosuvastatin 20 mg PO BEDTIME 90 days tobramycin-dexamethasone 0.3-0.1 % 1 drp ophthalmic (eye) BID umeclidinium-vilanterol 62.5-25 mcg/actuation (Anoro Ellipta) 1 inh inhalation DAILY valacyclovir 500 mg PO BID vitamin B complex 1 tab PO DAILY warfarin 5 mg See Protocol PO MOTH 90 days warfarin 10 mg See Protocol PO SUTUWEFRSA 90 days Nursing Note INR: 2.6 in therapeutic range OF 2-3 Medications and supplements reviewed: no changes No changes in health, diet, medications, or supplements, Denies any signs and symptoms of bleeding or bruising or clotting. 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
== END 2023-05-01 09:45 | disposition home or self-care (01) ==
LOC: HO.ACS 09:19
PROVIDERS: PCP Internal Medicine; Visit Provider Internal Medicine
DX: Z79.01 Long term (current) use of anticoagulants (principal)

== ENCOUNTER → 2023-05-01 09:19 | Outpatient (BNVA) | payer MEDICARE, SELFPAY ==
[2022-08-10 10:10] VITALS: BMI 42.4
== END ==
PROVIDERS: PCP Internal Medicine; Visit Provider Internal Medicine
DX: I48.19 Other persistent atrial fibrillation (principal); Z79.01 Long term (current) use of anticoagulants; Z51.81 Encounter for therapeutic drug level monitoring
CPT/HCPCS: 85610; 99211

== ENCOUNTER 2023-05-15 09:37 | Outpatient (AMB) | payer MEDICARE, SELFPAY ==
[2022-08-10 10:10] VITALS: BMI 42.4
[2023-05-15 09:45] LABS: Prothrombin Time Whole Bld POC 34.5 sec (11.1-13.5); ~PT, ~INR - Anti Coag Clinic 2.9 (0.9-1.1)
--- NOTE | 2023-05-15 09:54 | MHC.OFFVISCO ---
Intake Intake Visit Reasons: Anticoagulation Allergies ciprofloxacin [From CIPRO] Allergy (Intermediate, Verified 05/15/23 09:39) DIFFICULTY BREATHING vancomycin [VANCOMYCIN] Allergy (Intermediate, Verified 05/15/23 09:39) RASH, rash over whole body Medication List - Last Reconciled 05/15/23 by Delphine Holland RN aspirin (Adult Low Dose Aspirin) 81 mg PO DAILY bumetanide 2 mg PO BID calcium carbonate 500 mg PO DAILY cholecalciferol (vitamin D3) 50 mcg PO DAILY losartan 100 mg PO DAILY metoprolol tartrate 100 mg PO BID 90 days multivitamin 1 tab PO DAILY omega-3 fatty acids-fish oil 360-1,200 mg (Fish Oil) 1 cap PO DAILY Oxygen Home Use As directed prednisolone acetate 1% drps ophthalmic (eye) rosuvastatin 20 mg PO BEDTIME 90 days tobramycin-dexamethasone 0.3-0.1 % 1 drp ophthalmic (eye) BID umeclidinium-vilanterol 62.5-25 mcg/actuation (Anoro Ellipta) 1 inh inhalation DAILY valacyclovir 500 mg PO BID vitamin B complex 1 tab PO DAILY warfarin See Protocol 10mg x 1 day/ 7.5mg x 6 days orally; Nursing Note INR: 2.9 in therapeutic range Medications and supplements reviewed- resumed steroid eye gtt No changes in health, diet, medications, or supplements, Denies any signs and symptoms of bleeding or bruising or clotting. Bleeding, bruising, clotting discussed Nutritional guidance given - [employer] food list - eat a mix of fruits and vegetables - and weekly greens Dose: 10mg x 2 days/ 7.5mg x 5 days F/U INR: 2 weeks if stable go 3 weeks - chk 2 weeks due to eye gtts and to make sure eye gtt stable Patient verbalizes understanding of instructions given Anti-Coag Initial Assessment Social Hx Patient Tobacco Use Status: Former Tobacco user Tobacco use type: Cigarette alcohol intake: former Coding Level of Care Code Est Patient Level 1 Diagnoses Current use of anticoagulant therapy Z79.01 Assessment & Plan Assessment & Plan (1) Current use of anticoagulant therapy: Code(s): 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
== END 2023-05-15 09:57 | disposition home or self-care (01) ==
LOC: HO.ACS 09:37
PROVIDERS: PCP Internal Medicine; Visit Provider Internal Medicine
DX: Z79.01 Long term (current) use of anticoagulants (principal)

== ENCOUNTER → 2023-05-15 09:37 | Outpatient (BNVA) | payer MEDICARE, SELFPAY ==
[2022-08-10 10:10] VITALS: BMI 42.4
== END ==
PROVIDERS: PCP Internal Medicine; Visit Provider Internal Medicine
DX: I48.19 Other persistent atrial fibrillation (principal); Z79.01 Long term (current) use of anticoagulants; Z51.81 Encounter for therapeutic drug level monitoring
CPT/HCPCS: 85610; 99211

== ENCOUNTER 2023-05-29 09:32 | Outpatient (AMB) | payer MEDICARE, SELFPAY ==
[2022-08-10 10:10] VITALS: BMI 42.4
[2023-05-29 09:43] LABS: Prothrombin Time Whole Bld POC 40.3 sec (11.1-13.5); ~PT, ~INR - Anti Coag Clinic 3.4 (0.9-1.1)
--- NOTE | 2023-05-29 09:47 | MHC.OFFVISCO ---
Intake Intake Visit Reasons: Anticoagulation Allergies ciprofloxacin [From CIPRO] Allergy (Intermediate, Verified 05/29/23 09:36) DIFFICULTY BREATHING vancomycin [VANCOMYCIN] Allergy (Intermediate, Verified 05/29/23 09:36) RASH, rash over whole body Medication List - Last Reconciled 05/29/23 by Donna Benitez RN aspirin (Adult Low Dose Aspirin) 81 mg PO DAILY bumetanide 2 mg PO BID 90 days calcium carbonate 500 mg PO DAILY cholecalciferol (vitamin D3) 50 mcg PO DAILY losartan 100 mg PO DAILY metoprolol tartrate 100 mg PO BID 90 days multivitamin 1 tab PO DAILY omega-3 fatty acids-fish oil 360-1,200 mg (Fish Oil) 1 cap PO DAILY Oxygen Home Use As directed prednisolone acetate 1% drps ophthalmic (eye) rosuvastatin 20 mg PO BEDTIME 90 days tobramycin-dexamethasone 0.3-0.1 % 1 drp ophthalmic (eye) BID umeclidinium-vilanterol 62.5-25 mcg/actuation (Anoro Ellipta) 1 inh inhalation DAILY valacyclovir 500 mg PO BID vitamin B complex 1 tab PO DAILY warfarin See Protocol 10mg x 2 days/ 7.5mg x 5 days orally; Nursing Note INR: 3.4 out of therapeutic range of 2-3 Medications and supplements reviewed: no change No changes in health, diet, medications, or supplements, Denies any signs and symptoms of bleeding or bruising or clotting. Bleeding, bruising, clotting discussed Nutritional guidance given to have a serving of greens today and tomorrow Pt states he has asparagus and broccoli Dose: 10 mg X 2 days and 7.5mg X 5 days F/U INR: 2 weeks Patient verbalizes understanding of instructions given Anti-Coag Initial Assessment Social Hx Patient Tobacco Use Status: Former Tobacco user Tobacco use type: Cigarette alcohol intake: former Coding Level of Care Code Est Patient Level 1 Diagnoses Current use of anticoagulant therapy Z79.01 Results AMB INR Fingerstick AMB INR Fingerstick 3.4 Last Edit by Donna Benitez RN on 05/29/23 09:50 interface delay Assessment & Plan Assessment & Plan (1) Current use of anticoagulant therapy: Code(s): 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
== END 2023-05-29 10:17 | disposition home or self-care (01) ==
LOC: HO.ACS 09:32
PROVIDERS: PCP Internal Medicine; Visit Provider Internal Medicine
DX: Z79.01 Long term (current) use of anticoagulants (principal)

== ENCOUNTER → 2023-05-29 09:32 | Outpatient (BNVA) | payer MEDICARE, SELFPAY ==
[2022-08-10 10:10] VITALS: BMI 42.4
== END ==
PROVIDERS: PCP Internal Medicine; Visit Provider Internal Medicine
DX: I48.19 Other persistent atrial fibrillation (principal); Z51.81 Encounter for therapeutic drug level monitoring; Z79.01 Long term (current) use of anticoagulants
CPT/HCPCS: 85610; 99211

== ENCOUNTER 2023-05-30 09:45 | Outpatient (AMB) | payer MEDICARE, SELFPAY ==
[2022-08-10 10:10] VITALS: BMI 42.4
[2023-05-30 10:04] VITALS: BP 130/76; PULSE 54; O2SAT 92; BMI 41.3
--- NOTE | 2023-05-30 10:04 | A.OFFPC_ITS ---
Vital Signs 05/30/23 10:04 Height 6 ft 2 in Weight 322 lb BMI 41.3 BP 130/76 Blood Pressure Location Rt brachial Position Sitting Pulse 54 Pulse Source Pulse Oximeter Pulse Oximetry (%) 92 Oxygen Delivery Method Room Air Intake Visit Reasons: 8 Month follow up Allergies ciprofloxacin [From CIPRO] Allergy (Intermediate, Verified 05/30/23 10:09) DIFFICULTY BREATHING vancomycin [VANCOMYCIN] Allergy (Intermediate, Verified 05/30/23 10:09) RASH, rash over whole body Medication List - Last Reconciled 05/30/23 by Gregory Thompson MD aspirin (Adult Low Dose Aspirin) 81 mg PO DAILY bumetanide 2 mg PO BID 90 days calcium carbonate 500 mg PO DAILY cholecalciferol (vitamin D3) 50 mcg PO DAILY losartan 100 mg PO DAILY metoprolol tartrate 100 mg PO BID 90 days multivitamin 1 tab PO DAILY omega-3 fatty acids-fish oil 360-1,200 mg (Fish Oil) 1 cap PO DAILY Oxygen Home Use As directed prednisolone acetate 1% drps ophthalmic (eye) rosuvastatin 20 mg PO BEDTIME 90 days tobramycin-dexamethasone 0.3-0.1 % 1 drp ophthalmic (eye) BID umeclidinium-vilanterol 62.5-25 mcg/actuation (Anoro Ellipta) 1 inh inhalation DAILY valacyclovir 500 mg PO BID vitamin B complex 1 tab PO DAILY warfarin See Protocol 10mg x 2 days/ 7.5mg x 5 days orally; Tobacco use date assessed: 05/30/23 Dental Screening Dental Screen Date: 05/30/23 Did you have a dental visit in the last 12 months?: Yes Did you have a dental problem in the last 6 months where you did not have access to dental care?: No Was dental information given to patient?: Patient has dentist HPI 8 Month follow up HPI Details Only management through PCP office is for diabetes and patient is taking no medication for that His hemoglobin A1c is 6.0 today. He will start seeing me once a year now As patient is having labs done through Cardiology and Nephrology office Patient has chronic diastolic congestive heart clear and history of mitral valve repair more than 10 years ago, also has pulmonary hypertension. Under care of Dr. Enriquez Blood pressure medication and statin through Cardiology office Severe COPD treated by Pulmonary, his lungs are clear today, however patient is needing more and more oxygen currently now he is taking 4 L at baseline and more than that when he is active Hypertension: Blood pressure is well controlled, patient is on amlodipine 5 mg and losartan 100 mg along with metoprolol 100 mg b.i.d. Lipid disorder: Continue rosuvastatin 20 mg Providers patient is seeing are Dr. Lang reception specialist for COPD Cardiology, He was seeing Dr. Noriega [facility], now seeing Dr. Enriquez [facility] for chronic kidney disease Follow-up 1 year [facility] Medical History Mitral stenosis Pulmonary hypertension SOB (shortness of breath) Cor pulmonale Dyspnea Oxygen dependent Chronic hypoxemic respiratory failure Sleep apnea COPD (chronic obstructive pulmonary disease) Hyperlipidemia Atrial fibrillation Hypertension, essential Current use of anticoagulant therapy Surgical History History of carpal tunnel surgery History of colonoscopy History of thumb surgery History of mitral valve repair History of umbilical hernia History of tonsillectomy History of vasectomy Family History Father No problems noted. Mother No problems noted. Brother No problems noted. Sister Mental health disorder Sister No problems noted. Sister No problems noted. Sister No problems noted. Son No problems noted. Daughter No problems noted. Social History Household Members: None Housing: Apartment Do you presently have visiting nurse or other home services: No Alcohol intake: former Patient Tobacco Use Status: Former Tobacco user Tobacco use type: Cigarette Years Smoked: 25 e-Cigarette/Vaping Use: Never Used Second Hand Smoke Exposure: Yes (cigar smoke) Substance Use Type: Marijuana Advance Directives Date on File: 07/12/20 service: No Current occupational status: disabled Cognitive needs: No Hearing needs: No Vision needs: Yes Questionnaire PHQ-9 Over the last 2 weeks, how often have you been bothered by any of the following problems? 1. Little interest or pleasure in doing things: several days 2. Feeling down, depressed, or hopeless: not at all 3. Trouble falling or staying asleep, or sleeping too much: not at all 4. Feeling tired or having little energy: more than half the days 5. Poor appetite or overeating: not at all 6. Feeling bad about yourself - or that you are a failure or have let yourself or your family down: not at all 7. Trouble concentrating on things, such as reading the newspaper or watching television: not at all 8. Moving or speaking so slowly that other people could have noticed. Or the opposite - being so fidgety or restless that you have been moving around a lot more than usual: not at all 9. Thoughts that you would be better off or of hurting yourself in some way: not at all Total score: 3 Depression Screening Interpretation: Negative Depression Screening Done: Yes [id number] - PHQ-9 Billing: Yes Source: Developed by Drs. Anuj Donohue, Beth Ornelas, Joshua Dodge and colleagues, with an educational saturnino from [employer] Thrive Questionnaire Date Thrive assessed: 05/30/23 I am a: Patient What is your living situation today?: I have a steady place to live Within the past 12 months, did the food you bought not last and you didn't have the money to get more?: Never true Within the past 12 months, did you worry whether your food would run out before you got money to buy more?: Never true Do you have trouble paying for medicines?: No Do you have trouble getting transportation to medical appointments?: No Do you have trouble paying your heating and electricity bill?: No Do you have trouble taking care of your child, family member or friend?: No Do you have trouble with day-to-day activities such as bathing, preparing meals, shopping, managing finances, etc.?: No Are you currently unemployed and looking for a job?: No Are you interested in more education?: No Please select the resources that you would like help with: None Currently or been in a relationship where the following occur: no concerns reported THRIVE Score: 0 AUDIT C Alcohol Use Questionnaire (AUDIT-C) 1. How often do you have a drink containing alcohol?: Never 3. How often do you have six or more drinks on one occasion?: Never Total Score: 0 Score Reviewed/Action Taken: Yes NIKKO-7 AMB Questionnaire NIKKO-7 Date NIKKO - 7 assessed: 05/30/23 Feeling nervous, anxious, or on edge: 0 = Not at all Not being able to stop or control worryin = Not at all Worrying too much about different things: 0 = Not at all Trouble relaxin = Several days Being so restless that it is hard to sit still: 0 = Not at all Becoming easily annoyed or irritable: 2 = More than half the days Feeling afraid as if something awful might happen: 0 = Not at all Total NIKKO-7 score (0-4 normal; 5-9 mild; 10-14 moderate; 15-21 severe): 3 Source: Developed by Drs. Anuj Donohue, Beth Ornelas, Joshua Dodge and colleagues, with an educational saturnino from [employer] NIKKO-7 Assessment Billing NIKKO-7 Assessment Tool: NIKKO-7 Assessment 79935 Review of Systems Const Denies chills and Denies fever(s) ENT Denies epistaxis and Denies nasal discharge Card Denies chest pain Resp Denies chest congestion, Denies cough and Denies hemoptysis GI Denies diarrhea and Denies nausea Skin/Breast Denies rash Neuro Reports no additional complaints Psych Reports no additional complaints Endo Reports no additional complaints Physical exam (Primary Care) Vital Signs: Last Vital Signs Pulse 54 05/30/23 10:04 BP 130/76 05/30/23 10:04 Pulse Ox 92 05/30/23 10:04 Oxygen Delivery Method Room Air 05/30/23 10:04 BMI result Body Mass Index 41.3 Tobacco/Smoking Status: Tobacco use Status Tobacco use date assessed 05/30/23 05/30/23 10:10 Patient Tobacco Use Status Former Tobacco user 05/30/23 10:10 Tobacco use type Cigarette 05/30/23 10:10 e-Cigarette/Vaping Use Never Used 05/30/23 10:10 PHQ-9: PHQ-9 Score PHQ-9: Total score 3 05/30/23 11:12 Depression Screening Interpretation: Negative Thrive Assessment: Date of Thrive Assessment Date Thrive assessed 05/30/23 05/30/23 10:22 Currently or been in a relationship where the following occur: no concerns reported Const General: cooperative, comfortable and no acute distress Orientation/consciousness: patient oriented x3 HENMT Other: Nasal cannula in nose Head: Yes normocephalic Eyes General: appearance normal, both eyes and all related structures Neck Neck: Yes supple Resp Effort & Inspection: normal respiratory effort, no cough and no stridor Cardio Heart sounds: S1 normal heart sound present and S2 normal heart sound present Skin General skin exam: turgor normal Neuro General: patient oriented x3, tone normal and moves all extremities Extrem Right lower extremity: no edema Left lower extremity: no edema Results AMB Hemoglobin A1c AMB Hemoglobin A1c 6.0 % Last Edit by Fabien Goodwin MA on 05/30/23 10:18 Results Reviewed Results Reviewed: Laboratory Last Values Hgb A1c (Clinic) 6.0 % (4.0-6.0) 05/30/23 10:18 Assessment and Plan Assessment & Plan (1) Diabetes mellitus type 2 in obese: Code(s): E11.69 - Type 2 diabetes mellitus with other specified complication; E66.9 - Obesity, unspecified (2) Pulmonary hypertension: Code(s): I27.20 - Pulmonary hypertension, unspecified (3) COPD (chronic obstructive pulmonary disease): Code(s): J44.9 - Chronic obstructive pulmonary disease, unspecified Qualifiers: COPD type: emphysema Emphysema type: panlobular Qualified Code(s): J43.1 - Panlobular emphysema (4) Diastolic heart failure: Code(s): I50.30 - Unspecified diastolic (congestive) heart failure Qualifiers: Heart failure chronicity: chronic Qualified Code(s): I50.32 - Chronic diastolic (congestive) heart failure (5) Chronic GERD: Code(s): K21.9 - Gastro-esophageal reflux disease without esophagitis (6) Aortic root dilation: Code(s): I77.810 - Thoracic aortic ectasia (7) Oxygen dependent: Code(s): Z99.81 - Dependence on supplemental oxygen (8) Vasomotor rhinitis: Code(s): J30.0 - Vasomotor rhinitis (9) Persistent atrial fibrillation: Code(s): I48.19 - Other persistent atrial fibrillation (10) Immune deficiency disorder: Code(s): D84.9 - Immunodeficiency, unspecified (11) Current use of anticoagulant therapy: 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 He will start seeing me once a year now As patient is having labs done through Cardiology and Nephrology office Patient has chronic diastolic congestive heart clear and history of mitral valve repair more than 10 years ago, also has pulmonary hypertension. Under care of Dr. Enriquez Blood pressure medication and statin through Cardiology office Severe COPD treated by Pulmonary, his lungs are clear today, however patient is needing more and more oxygen currently now he is taking 4 L at baseline and more than that when he is active Hypertension: Blood pressure is well controlled, patient is on amlodipine 5 mg and losartan 100 mg along with metoprolol 100 mg b.i.d. Lipid disorder: Continue rosuvastatin 20 mg Providers patient is seeing are Dr. Lang reception specialist for COPD Cardiology, He was seeing Dr. Noriega [facility], now seeing Dr. Enriquez [facility] for chronic kidney disease Follow-up 1 year Coding Level of Care Code Est Pt Level 4 (38248) Diagnoses Diabetes mellitus type 2 in obese E11.69; E66.9 Pulmonary hypertension I27.20 Panlobular emphysema J43.1 COPD type: emphysema Emphysema type: panlobular Chronic diastolic heart failure I50.32 Heart failure chronicity: chronic Chronic GERD K21.9 Aortic root dilation I77.810 Oxygen dependent Z99.81 Vasomotor rhinitis J30.0 Persistent atrial fibrillation I48.19 Immune deficiency disorder D84.9 Current use of anticoagulant therapy Z79.01 Nephropathy N28.9 Additional Codes NIKKO-7 Assessment Billing - NIKKO-7 Assessment Tool: NIKKO-7 Assessment 69124 ([id number])
== END 2023-05-30 13:28 | disposition home or self-care (01) ==
PROVIDERS: PCP Internal Medicine; Visit Provider Internal Medicine
DX: E11.69 Type 2 diabetes mellitus with other specified complication (principal); I27.20 Pulmonary hypertension, unspecified; J43.1 Panlobular emphysema; I50.32 Chronic diastolic (congestive) heart failure; I77.810 Thoracic aortic ectasia; I48.19 Other persistent atrial fibrillation; D84.9 Immunodeficiency, unspecified; E66.9 Obesity, unspecified; K21.9 Gastro-esophageal reflux disease without esophagitis; Z99.81 Dependence on supplemental oxygen; J30.0 Vasomotor rhinitis; Z79.01 Long term (current) use of anticoagulants
CPT/HCPCS: 83036; 99214

== ENCOUNTER 2023-06-06 09:30 | Outpatient (AMB) | payer MEDICARE, SELFPAY ==
[2022-08-10 10:10] VITALS: BMI 42.4
--- NOTE | 2023-06-06 09:44 | MHC.OFFVIS ---
Vital Signs 06/06/23 09:46 Height 6 ft 2 in Weight 322 lb BMI 41.3 Pulse 65 Pulse Source Pulse Oximeter Pulse Oximetry (%) 88 L Oxygen Delivery Method Room Air Comment 3 Liters Oxygen([facility]) Intake Visit Reasons: COPD Manager Clinical Research Required: No Allergies ciprofloxacin [From CIPRO] Allergy (Intermediate, Verified 06/06/23 09:48) DIFFICULTY BREATHING vancomycin [VANCOMYCIN] Allergy (Intermediate, Verified 06/06/23 09:48) RASH, rash over whole body HPI Comments Details: The patient is a 63-year-old woman known history of lymphoma in addition to interstitial lung disease. She has had significant shortness of breath and cough. More recently her IgG levels were checked and found to be in the 400s. The patient has had recurrent lower respiratory infections. She is going to be started on IgG therapy by her oncologist most likely. In the meantime we looked at her previous CT scans demonstrating areas of ground-glass opacities and interstitial lung disease. She did undergo bronchoscopy back in 2018 demonstrating chronic inflammatory patchy interstitial infiltrates. It was also noted that she had lymphocytic inflammatory cell infiltrate. Based on the fact that she response to prednisone, evidence of ground-glass opacities on her CT scan and also based on the fact that the biopsy showed chronic inflammatory changes these findings are not consistent with idiopathic pulmonary fibrosis. 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 She does need to some degree of immuno modulation to minimize inflammation and scarring. However, we should address the immunodeficiency prior to doing so. In the meantime the patient has been complaining of worsening cough and shortness of breath. We did review her CT scan of the chest that she had recently demonstrating interval worsening of the interstitial lung disease in some areas of ground-glass opacities now in the upper lung zones which she was free of disease. The patient understands that the best way of knowing was going on will be with a lung biopsy. However, the last time she went to a surgical consultation she decided to hold off after the discussion with the surgeon. Therefore diff point will do additional laboratory data to see if we can identify the process without having her to do a biopsy. At which point the patient would benefit from a immunomodulator to try to minimize to use prednisone as she has not been able to tolerated. Patient also having significant stress because she is going through a divorce. She is drinking significant amount of beer. We talked about how this also can affect the respiratory status. 06/14/2022 the patient is here for pulmonary follow-up visit. Overall he is doing well. The patient has been using the BiPAP every night. The BiPAP therapy has been affecting beneficial. The last download data demonstrated that his AHI was 4.5. Therefore, will go ahead increase the pressures from 18-19 cm and the expiratory pressure from 13-14 cm. He will continue using 3 L at nighttime. He needs to get supplies from his [employer], [employer] will submit a script for that. In addition to the C is using the diuretics with good effect. He continues use the respiratory medications. Unfortunately the Anoro was too expensive. I did print out a medication assistance for from the pharmaceutical company and will resend the Anoro again to the pharmacy. 10/26/2022 the patient is here for a pulmonary follow-up visit. The patient has been feeling dizzy lately. Just not himself. Denies any vertigo. He is not sure what could be. Although he noticed that in the morning when he was checking his blood pressure the heart rate was only in the 40s. He had him areas in the 50s and 60s at times and is AFib currently rate controlled. Is wondering if the low heart rate could be resulting in the dizziness. He did have blood work yesterday. Sugars seems to be okay. His kidney function since to be okay and electrolytes as well. His Bumex was increased further we did talk about auto toxicity but at this point he denies any decreased hearing and or tinnitus. The patient has been using the oxygen at 4 L with activity with good effect. Also use using the BiPAP at nighttime. He did have a recent echocardiogram done demonstrating that his a RV function is decrease in his mitral valve appears to be stenotic about a moderate to severe based on the report. I did reach out to the Cardiology to see if he can be seen on little bit sooner otherwise patient will continue with current therapy. He is going to continue to monitor the heart rate to make sure that it has not decreased further. He has been on metoprolol for a long time. Also recently he was starting to get more short of breath. His brain nitrate peptide was elevated and his Bumex was increased. This week he does feel better from a breathing standpoint. 02/21/2023 the patient is here for a pulmonary follow-up visit. The patient is doing about the same. Still complaining of dyspnea on exertion. He did follow-up with cardiology. Echocardiogram demonstrated a moderate degree of mitral stenosis. The patient also has evidence of pulmonary hypertension. A lot likely have to do with the valvular disease although he does have some COPD as well. I do believe that treating the mitral valve will help his overall respiratory status. Although, understand that with his underlying respiratory issues it would be higher in the risk profile. 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 I do believe that intervening on the valve may be in his best interest. In the meantime he is okay to go back to pulmonary rehabilitation. He continue using the noninvasive ventilator at nighttime. He will continue using his oxygen as prescribed. 06/06/2023 the patient is here for a pulmonary follow-up visit. The patient overall has been doing well. The additional oxygen has been helpful. The patient still using the diuretic therapy. He will be following up with Cardiology soon. The patient does have some degree of pulmonary hypertension but also has mitral stenosis so therefore would be concerned about the use of vasodilators and causing worsening heart failure. He stopped going to pulmonary rehabilitation. I did encourage him to go back but he is concerned that he gets very short of breath with minimal activity. I did recommend he can look into online program such as the pulmonary while on this program online. He continues use the BiPAP. At this point will go ahead and recheck a blood gas. If his CO2 is elevated will go ahead and consider switching over to a AVAP, noninvasive ventilator. Patient will follow-up in about 4 months. His last chest x-ray was back in the fall 2022 which appeared to be without any acute disease possibly some vascular congestion. No additional imaging studies warranted right now. If he has any issues prior to that he will call for an earlier assessment. [facility] Medical History Mitral stenosis Pulmonary hypertension SOB (shortness of breath) Cor pulmonale Dyspnea Oxygen dependent Chronic hypoxemic respiratory failure Sleep apnea COPD (chronic obstructive pulmonary disease) Hyperlipidemia Atrial fibrillation Hypertension, essential Current use of anticoagulant therapy Surgical History History of carpal tunnel surgery History of colonoscopy History of thumb surgery History of mitral valve repair History of umbilical hernia History of tonsillectomy History of vasectomy Family History Father No problems noted. Mother No problems noted. Brother No problems noted. Sister Mental health disorder Sister No problems noted. Sister No problems noted. Sister No problems noted. Son No problems noted. Daughter No problems noted. Social History Household Members: None Housing: Apartment Do you presently have visiting nurse or other home services: No Alcohol intake: former Patient Tobacco Use Status: Former Tobacco user Tobacco use type: Cigarette Years Smoked: 25 e-Cigarette/Vaping Use: Never Used Second Hand Smoke Exposure: Yes (cigar smoke) Substance Use Type: Marijuana Advance Directives Date on File: 07/12/20 service: No Current occupational status: disabled Cognitive needs: No Hearing needs: No Vision needs: Yes Review of Systems Const Denies chills and Denies fever(s) ENT Denies epistaxis and Denies nasal discharge Card Denies chest pain and Reports dyspnea on exertion Resp Denies chest congestion, Denies cough, Denies hemoptysis and Reports dyspnea on exertion GI Denies diarrhea and Denies nausea Musc Reports myalgias Skin/Breast Denies rash Neuro Reports no additional complaints Psych Reports no additional complaints Endo Reports no additional complaints Physical Exam Vital Signs: Last Vital Signs Pulse 65 06/06/23 09:46 Pulse Ox 88 L 06/06/23 09:46 Oxygen Delivery Method Room Air 06/06/23 09:46 BMI result Body Mass Index 41.3 Const General: alert HEENT General nose exam: Abnormal external nose present and Nasal discharge present Neck Neck: Yes normal visual inspection, Yes full ROM and Yes no lymphadenopathy Chest Chest palpation & inspection: normal inspection of the chest Resp Effort & Inspection: normal respiratory effort Auscultation: diminished lung sounds Cardio Rate: regular rate Rhythm: abnormal rhythm Heart sounds: S1 normal heart sound present, S2 normal heart sound present and Murmur heart sound present GI Palpation (GI): Soft to palpation and nontender Auscultation: normal bowel sounds Skin General skin exam: rashes and/or lesions noted Extrem General: Yes clubbing and Yes edema Assessment & Plan Assessment & Plan (1) Pulmonary hypertension: Code(s): I27.20 - Pulmonary hypertension, unspecified Category: Medical (2) Dyspnea: Code(s): R06.00 - Dyspnea, unspecified Category: Medical Qualifiers: Dyspnea type: dyspnea on exertion Qualified Code(s): R06.00 - Dyspnea, unspecified (3) COPD (chronic obstructive pulmonary disease): Code(s): J44.9 - Chronic obstructive pulmonary disease, unspecified Category: Medical Qualifiers: COPD type: emphysema Emphysema type: panlobular Qualified Code(s): J43.1 - Panlobular emphysema (4) Mitral stenosis: Code(s): I05.0 - Rheumatic mitral stenosis Category: Medical Qualifiers: Cardiac valve disease etiology: etiology unspecified Qualified Code(s): I05.0 - Rheumatic mitral stenosis Plan Continue BiPAP therapy, JL AHI, oxygen 4L bloodgas ?AVAPS Continue oxygen therapy 4 L at rest, 8 L with activity diuresis with BUmex Consider right heart catheterization will f/u with cardiology re: mitral stenosis, likely worsening continue Anoro daily F/U 3-4 months Orders: Orders Venous Blood Gas Today J43.1 - Panlobular emphysema Coding Level of Care Code Est Pt Level 4 (91241) Diagnoses Pulmonary hypertension I27.20 Dyspnea on exertion R06.00 Dyspnea type: dyspnea on exertion Panlobular emphysema J43.1 COPD type: emphysema Emphysema type: panlobular Mitral valve stenosis, unspecified etiology I05.0 Cardiac valve disease etiology: etiology unspecified Time Spent (min) 17
[2023-06-06 09:46] VITALS: PULSE 65; O2SAT 88; BMI 41.3
== END 2023-06-06 10:08 | disposition home or self-care (01) ==
PROVIDERS: PCP Internal Medicine; Visit Provider Hospitalist
DX: I27.20 Pulmonary hypertension, unspecified (principal); R06.00 Dyspnea, unspecified; J43.1 Panlobular emphysema; I05.0 Rheumatic mitral stenosis
CPT/HCPCS: 99214

== ENCOUNTER → 2023-06-06 09:30 | Outpatient (BNVA) | payer MEDICARE, SELFPAY ==
[2022-08-10 10:10] VITALS: BMI 42.4
== END ==
PROVIDERS: PCP Internal Medicine; Visit Provider Hospitalist
DX: I27.20 Pulmonary hypertension, unspecified (principal); R06.00 Dyspnea, unspecified; J43.1 Panlobular emphysema; I05.0 Rheumatic mitral stenosis; Z99.81 Dependence on supplemental oxygen; Z99.89 Dependence on other enabling machines and devices
CPT/HCPCS: 99212

== ENCOUNTER 2023-06-11 09:33 | Outpatient (AMB) | payer MEDICARE, SELFPAY ==
[2022-08-10 10:10] VITALS: BMI 42.4
[2023-06-11 09:42] VITALS: BP 130/78; PULSE 89; O2SAT 97; BMI 41.2
--- NOTE | 2023-06-11 09:42 | A.OFFVIS_ITS ---
Vital Signs 06/11/23 09:42 Height 6 ft 2 in Weight 321 lb BMI 41.2 BP 130/78 Blood Pressure Location Lt brachial Position Sitting Pulse 89 Pulse Source Pulse Oximeter Pulse Oximetry (%) 97 Oxygen Delivery Method Nasal Cannula Oxygen Flow Rate 2 Intake Visit Reasons: 6 mth fu Allergies ciprofloxacin [From CIPRO] Allergy (Intermediate, Verified 06/06/23 09:48) DIFFICULTY BREATHING vancomycin [VANCOMYCIN] Allergy (Intermediate, Verified 06/06/23 09:48) RASH, rash over whole body Medication List - Last Reconciled 06/11/23 by Maxwell Enriquez MD aspirin (Adult Low Dose Aspirin) 81 mg PO DAILY bumetanide 2 mg PO BID 90 days calcium carbonate 500 mg PO DAILY cholecalciferol (vitamin D3) 50 mcg PO DAILY losartan 100 mg PO DAILY metoprolol tartrate 100 mg PO BID 90 days multivitamin 1 tab PO DAILY omega-3 fatty acids-fish oil 360-1,200 mg (Fish Oil) 1 cap PO DAILY Oxygen Home Use As directed prednisolone acetate 1% drps ophthalmic (eye) rosuvastatin 20 mg PO BEDTIME 90 days tobramycin-dexamethasone 0.3-0.1 % 1 drp ophthalmic (eye) BID umeclidinium-vilanterol 62.5-25 mcg/actuation (Anoro Ellipta) 1 inh inhalation DAILY valacyclovir 500 mg PO BID vitamin B complex 1 tab PO DAILY warfarin See Protocol 10mg x 2 days/ 7.5mg x 5 days orally; HPI Comments Details: Ketan returns for follow-up. Transferred care from [facility]. Multiple medical comorbidities including history of chronic diastolic congestive heart failure, history of mitral valve repair more than 10 years ago, pulmonary hypertension. Per patient, during the time of mitral valve surgery did not get any coronary interventions. He also has pulmonary issues and seems to be on supplemental oxygen. Chronically short of breath with activity. Overall, just about the same as before. [facility] Medical History Mitral stenosis Pulmonary hypertension SOB (shortness of breath) Cor pulmonale Dyspnea Oxygen dependent Chronic hypoxemic respiratory failure Sleep apnea COPD (chronic obstructive pulmonary disease) Hyperlipidemia Atrial fibrillation Hypertension, essential Current use of anticoagulant therapy Surgical History History of carpal tunnel surgery History of colonoscopy History of thumb surgery History of mitral valve repair History of umbilical hernia History of tonsillectomy History of vasectomy Family History Father No problems noted. Mother No problems noted. Brother No problems noted. Sister Mental health disorder Sister No problems noted. Sister No problems noted. Sister No problems noted. Son No problems noted. Daughter No problems noted. Social History Household Members: None Housing: Apartment Do you presently have visiting nurse or other home services: No Alcohol intake: former Patient Tobacco Use Status: Former Tobacco user Tobacco use type: Cigarette Years Smoked: 25 e-Cigarette/Vaping Use: Never Used Second Hand Smoke Exposure: Yes (cigar smoke) Substance Use Type: Marijuana Advance Directives Date on File: 07/12/20 service: No Current occupational status: disabled Cognitive needs: No Hearing needs: No Vision needs: Yes Review of Systems Const Denies weakness ENT Denies dizziness Card Denies chest pain, Denies chest pain with activity, Denies syncope, Denies rapid heart rate, Denies pedal edema, Denies edema, Denies leg edema, Denies lightheadedness, Denies palpitations, Denies dyspnea, Denies dyspnea on exertion and Denies orthopnea Resp Denies cough, Denies dyspnea and Denies dyspnea on exertion GI Denies hematochezia and Denies change in stool character Musc Denies abnormal gait, Denies muscle cramps, Denies muscle weakness, Denies numbness, Denies radiating pain into limb and Denies tingling Neuro Denies abnormal gait, Denies dizziness, Denies syncope, Denies numbness, Denies tingling and Denies weakness Endo Denies palpitations Physical Exam Vital Signs: Last Vital Signs Pulse 89 06/11/23 09:42 BP 130/78 06/11/23 09:42 Pulse Ox 97 06/11/23 09:42 Oxygen Delivery Method Nasal Cannula 06/11/23 09:42 Oxygen Flow Rate 2 06/11/23 09:42 BMI result Body Mass Index 41.2 Const General: comfortable and no acute distress Orientation/consciousness: patient oriented x3 HEENT Other: Unremarkable Head: Yes normal to inspection Neck Neck: Yes normal visual inspection Chest Chest palpation & inspection: normal inspection of the chest Resp Auscultation: diminished lung sounds Cardio Palpation: normal PMI Heart sounds: S1 normal heart sound present, S2 normal heart sound present, no gallops, no murmurs and no rubs GI Palpation (GI): Soft to palpation Back/Spine/Pelvis Other: unremarkable Skin General skin exam: no rashes or lesions noted Neuro General: patient oriented x3 Extrem General: Yes normal to inspection Psych Mental Status: mental status grossly normal Assessment & Plan Assessment & Plan (1) Status post mitral valve repair: Code(s): Z98.890 - Other specified postprocedural states Category: Surgical Plan: In the most recent echocardiogram, mean gradient across the mitral valve 4 mm Hg. Doubt any significant dysfunction. Continue to monitor. Even if there is any valvular issue, unlikely to be a surgical candidate as he will be a high risk patient due to pulmonary issues. (2) Persistent atrial fibrillation: Code(s): I48.19 - Other persistent atrial fibrillation Category: Medical Plan: Per patient, multiple prior cardioversions. Continue metoprolol for rate control. Continue warfarin. (3) Chronic diastolic (congestive) heart failure: Code(s): I50.32 - Chronic diastolic (congestive) heart failure Category: Medical Plan: Continue diuretics. (4) Pulmonary hypertension: Code(s): I27.20 - Pulmonary hypertension, unspecified Category: Medical Plan: Likely from some combination of cardiac as well as pulmonary etiology. Weight loss if he can do but may not be feasible. Diuretics. (5) Arterial hypotension: Code(s): I95.9 - Hypotension, unspecified Category: Medical Qualifiers: Hypotension type: hypotension due to drug Qualified Code(s): I95.2 - Hypotension due to drugs Plan: Off amlodipine. Blood pressure seems back to normal. Coding Level of Care Code Est Pt Level 4 (62171) Diagnoses Status post mitral valve repair Z98.890 Persistent atrial fibrillation I48.19 Chronic diastolic (congestive) heart failure I50.32 Pulmonary hypertension I27.20 Hypotension due to drugs I95.2 Hypotension type: hypotension due to drug
== END 2023-06-11 10:12 | disposition home or self-care (01) ==
PROVIDERS: PCP Internal Medicine; Visit Provider Internal Medicine
DX: Z98.890 Other specified postprocedural states (principal); I48.19 Other persistent atrial fibrillation; I50.32 Chronic diastolic (congestive) heart failure; I27.20 Pulmonary hypertension, unspecified; I95.2 Hypotension due to drugs
CPT/HCPCS: 99214

== ENCOUNTER → 2023-06-11 09:33 | Outpatient (BNVA) | payer MEDICARE, SELFPAY ==
[2022-08-10 10:10] VITALS: BMI 42.4
== END ==
PROVIDERS: PCP Internal Medicine; Visit Provider Internal Medicine
DX: I48.19 Other persistent atrial fibrillation (principal); I50.32 Chronic diastolic (congestive) heart failure; I27.20 Pulmonary hypertension, unspecified; I95.2 Hypotension due to drugs; Z98.890 Other specified postprocedural states
CPT/HCPCS: 99212

== ENCOUNTER 2023-06-12 09:09 | Outpatient (AMB) | payer MEDICARE, SELFPAY ==
[2022-08-10 10:10] VITALS: BMI 42.4
--- NOTE | 2023-06-12 09:37 | MHC.OFFVISCO ---
Intake Intake Visit Reasons: Anticoagulation Allergies ciprofloxacin [From CIPRO] Allergy (Intermediate, Verified 06/12/23 09:32) DIFFICULTY BREATHING vancomycin [VANCOMYCIN] Allergy (Intermediate, Verified 06/12/23 09:32) RASH, rash over whole body Medication List - Last Reconciled 06/12/23 by Teresa Philippe RN aspirin (Adult Low Dose Aspirin) 81 mg PO DAILY bumetanide 2 mg PO BID 90 days calcium carbonate 500 mg PO DAILY cholecalciferol (vitamin D3) 50 mcg PO DAILY losartan 100 mg PO DAILY metoprolol tartrate 100 mg PO BID 90 days multivitamin 1 tab PO DAILY omega-3 fatty acids-fish oil 360-1,200 mg (Fish Oil) 1 cap PO DAILY Oxygen Home Use As directed prednisolone acetate 1% drps ophthalmic (eye) rosuvastatin 20 mg PO BEDTIME 90 days tobramycin-dexamethasone 0.3-0.1 % 1 drp ophthalmic (eye) BID umeclidinium-vilanterol 62.5-25 mcg/actuation (Anoro Ellipta) 1 inh inhalation DAILY valacyclovir 500 mg PO BID vitamin B complex 1 tab PO DAILY warfarin See Protocol 10mg x 2 days/ 7.5mg x 5 days orally; Nursing Note INR: 2.9- in therapeutic range of 2-3 Medications and supplements reviewed No changes in health, diet, medications, or supplements, Denies any signs and symptoms of bleeding or bruising or clotting. Bleeding, bruising, clotting discussed Nutritional guidance given Dose: 10mg x 2, 7.5mg x 5 F/U INR: 3 weeks Patient verbalizes understanding of instructions given pt amb with cane, on cont oxygen Anti-Coag Initial Assessment Social Hx Patient Tobacco Use Status: Former Tobacco user Tobacco use type: Cigarette alcohol intake: former Coding Level of Care Code Est Patient Level 1 Diagnoses Current use of anticoagulant therapy Z79.01 Results AMB INR Fingerstick AMB INR Fingerstick 2.9 Last Edit by Teresa Philippe RN on 06/12/23 09:38 Assessment & Plan Assessment & Plan (1) Current use of anticoagulant therapy: Code(s): Z79.01 - snf (current) use of anticoagulants Category: Medical
[2023-06-12 09:38] LABS: Prothrombin Time Whole Bld POC 34.9 sec (11.1-13.5); ~PT, ~INR - Anti Coag Clinic 2.9 (0.9-1.1)
== END 2023-06-12 09:42 | disposition home or self-care (01) ==
LOC: HO.ACS 09:09
PROVIDERS: PCP Internal Medicine; Visit Provider Internal Medicine
DX: Z79.01 Long term (current) use of anticoagulants (principal)

== ENCOUNTER → 2023-06-12 09:09 | Outpatient (BNVA) | payer MEDICARE, SELFPAY ==
[2022-08-10 10:10] VITALS: BMI 42.4
== END ==
PROVIDERS: PCP Internal Medicine; Visit Provider Internal Medicine
DX: I48.19 Other persistent atrial fibrillation (principal); Z51.81 Encounter for therapeutic drug level monitoring; Z79.01 Long term (current) use of anticoagulants
CPT/HCPCS: 85610; 99211

== ENCOUNTER 2023-06-21 11:28 | Outpatient (REF) | payer MEDICARE, SELFPAY ==
[2022-08-10 10:10] VITALS: BMI 42.4
[2023-06-21 11:50] LABS: MANUAL DIFF FLAG NO
[2023-06-21 12:02] LABS: Venous Blood Gas Refer to POC result
[2023-06-21 12:03] LABS: VBG Base Excess 1.8 mmol/L; VBG HCO3 28 mmol/L (22-26); VBG pCO2 48 mmHg; VBG pH 7.36 (7.32-7.43); VBG pO2 32 mmHg
[2023-06-21 12:14] LABS: Basophils Absolute Auto 0.1 X10*3/uL (0.0-0.2); Basophils Percent Auto 0.8 % (0-2); Eosinophils Absolute Auto 0.1 X10*3/uL (0.0-0.4); Eosinophils Percent Auto 0.9 % (0-4); Hematocrit 54.2 % (42.0-52.0); Hemoglobin 18.2 g/dl (14.0-18.0); Imm Gran Abs Auto 0.06 X10*3/uL (0.00-0.03); Imm Gran Pct Auto 0.9 % (0.0-0.4); Lymphocytes Absolute Auto 1.7 X10*3/uL (1.2-4.9); Lymphocytes Percent Auto 26.9 % (20-40); Mean Corpuscular HGB Conc 33.6 g/dl (31.0-36.0); Mean Corpuscular Volume 95.4 fL (80.0-98.0); Mean Platelet Volume 9.9 fL (9.4-12.4); Monocytes Absolute Auto 0.8 X10*3/uL (0.1-1.2); Monocytes Percent Auto 12.8 % (2-11); Neutrophils Absolute Auto 3.7 x10*3/uL (2.0-8.3); Neutrophils Percent Auto 57.7 % (45-73); Platelet Count 190 X10*3/uL (160-400); Red Blood Count 5.68 X10*6/uL (4.60-5.80); Red Cell Distribution Width 15.8 % (11.0-16.0); White Blood Count 6.3 X10*3/uL (4.8-10.8)
[2023-06-21 12:26] LABS: Anion Gap 12 (12-20); Blood Urea Nitrogen 16 mg/dL (9-16); Calcium 9.7 mg/dL (8.4-10.2); Carbon Dioxide 29 mmol/L (22-29); Chloride 106 mmol/L (96-108); Estimated Glomerular Filt Rate > 60; Glucose Random 113 mg/dL (60-115); Sodium 143 mmol/L (135-145)
== END 2023-06-21 11:29 | disposition home or self-care (01) ==
LOC: HO.LAB 11:28
PROVIDERS: PCP Internal Medicine; Visit Provider Hospitalist
DX: J43.1 Panlobular emphysema (principal)
CPT/HCPCS: 36415; 80048; 82803; 85025

== ENCOUNTER 2023-07-05 09:03 | Outpatient (AMB) | payer MEDICARE, SELFPAY ==
[2022-08-10 10:10] VITALS: BMI 42.4
[2023-07-05 09:12] LABS: Prothrombin Time Whole Bld POC 31.2 sec (11.1-13.5); ~PT, ~INR - Anti Coag Clinic 2.6 (0.9-1.1)
--- NOTE | 2023-07-05 09:17 | MHC.OFFVISCO ---
Intake Intake Visit Reasons: Anticoagulation Allergies ciprofloxacin [From CIPRO] Allergy (Intermediate, Verified 07/05/23 09:06) DIFFICULTY BREATHING vancomycin [VANCOMYCIN] Allergy (Intermediate, Verified 07/05/23 09:06) RASH, rash over whole body Medication List - Last Reconciled 07/05/23 by Donna Benitez RN aspirin (Adult Low Dose Aspirin) 81 mg PO DAILY bumetanide 2 mg PO BID 90 days calcium carbonate 500 mg PO DAILY cholecalciferol (vitamin D3) 50 mcg PO DAILY losartan 100 mg PO DAILY metoprolol tartrate 100 mg PO BID 90 days multivitamin 1 tab PO DAILY omega-3 fatty acids-fish oil 360-1,200 mg (Fish Oil) 1 cap PO DAILY Oxygen Home Use As directed prednisolone acetate 1% drps ophthalmic (eye) rosuvastatin 20 mg PO BEDTIME 90 days tobramycin-dexamethasone 0.3-0.1 % 1 drp ophthalmic (eye) BID umeclidinium-vilanterol 62.5-25 mcg/actuation (Anoro Ellipta) 1 inh inhalation DAILY valacyclovir 500 mg PO BID vitamin B complex 1 tab PO DAILY warfarin See Protocol 10mg x 2 days/ 7.5mg x 5 days orally; Nursing Note Pt to ACS on potable oxygen with use of cane INR: 2.6 in therapeutic range of 2-3 Medications and supplements reviewed: no changes No changes in health, diet, medications, or supplements, Denies any signs and symptoms of bleeding or bruising or clotting. Bleeding, bruising, clotting discussed Nutritional guidance given to balance reds' and greens Dose: 10mgX2 days and 7.5mg X 5 days F/U INR: 4 weeks Patient verbalizes understanding of instructions given Anti-Coag Initial Assessment Social Hx Patient Tobacco Use Status: Former Tobacco user Tobacco use type: Cigarette alcohol intake: former Coding Level of Care Code Est Patient Level 1 Diagnoses Current use of anticoagulant therapy Z79.01 Results AMB INR Fingerstick AMB INR Fingerstick 2.6 Last Edit by Donna Benitez RN on 07/05/23 09:12 interface delay Assessment & Plan Assessment & Plan (1) Current use of anticoagulant therapy: Code(s): Z79.01 - custodial (current) use of anticoagulants Category: Medical
== END 2023-07-05 09:20 | disposition home or self-care (01) ==
LOC: HO.ACS 09:03
PROVIDERS: PCP Internal Medicine; Visit Provider Internal Medicine
DX: Z79.01 Long term (current) use of anticoagulants (principal)

== ENCOUNTER → 2023-07-05 09:03 | Outpatient (BNVA) | payer MEDICARE, SELFPAY ==
[2022-08-10 10:10] VITALS: BMI 42.4
== END ==
PROVIDERS: PCP Internal Medicine; Visit Provider Internal Medicine
DX: I48.19 Other persistent atrial fibrillation (principal); Z51.81 Encounter for therapeutic drug level monitoring; Z79.01 Long term (current) use of anticoagulants
CPT/HCPCS: 85610; 99211

== ENCOUNTER → 2023-08-02 09:07 | Outpatient (BNVA) | payer MEDICARE, SELFPAY ==
[2022-08-10 10:10] VITALS: BMI 42.4
== END ==
PROVIDERS: PCP Internal Medicine; Visit Provider Internal Medicine
DX: I48.19 Other persistent atrial fibrillation (principal); Z79.01 Long term (current) use of anticoagulants; Z51.81 Encounter for therapeutic drug level monitoring
CPT/HCPCS: 85610; 99211

== ENCOUNTER 2023-09-03 10:59 | Outpatient (AMB) | payer MEDICARE, SELFPAY ==
[2022-08-10 10:10] VITALS: BMI 42.4
[2023-09-03 11:23] LABS: Prothrombin Time Whole Bld POC 32.8 sec (11.1-13.5); ~PT, ~INR - Anti Coag Clinic 2.7 (0.9-1.1)
--- NOTE | 2023-09-03 11:31 | MHC.OFFVISCO ---
Intake Intake Visit Reasons: Anticoagulation Allergies ciprofloxacin [From CIPRO] Allergy (Intermediate, Verified 09/03/23 11:17) DIFFICULTY BREATHING vancomycin [VANCOMYCIN] Allergy (Intermediate, Verified 09/03/23 11:17) RASH, rash over whole body Medication List - Last Reconciled 09/03/23 by Delphine Holland RN aspirin (Adult Low Dose Aspirin) 81 mg PO DAILY bumetanide 2 mg PO BID 90 days calcium carbonate 500 mg PO DAILY cholecalciferol (vitamin D3) 50 mcg PO DAILY losartan 100 mg PO DAILY metoprolol tartrate 100 mg PO BID 90 days multivitamin 1 tab PO DAILY omega-3 fatty acids-fish oil 360-1,200 mg (Fish Oil) 1 cap PO DAILY Oxygen Home Use As directed prednisolone acetate 1% drps ophthalmic (eye) rosuvastatin 20 mg PO BEDTIME 90 days tobramycin-dexamethasone 0.3-0.1 % 1 drp ophthalmic (eye) ONCE umeclidinium-vilanterol 62.5-25 mcg/actuation (Anoro Ellipta) 1 inh inhalation DAILY 90 days valacyclovir 500 mg PO DAILY vitamin B complex 1 tab PO DAILY warfarin See Protocol 10mg x 2 days/ 7.5mg x 5 days orally; Nursing Note INR: 2.9 in therapeutic range Medications and supplements reviewed No changes in health, diet, medications, or supplements, Denies any signs and symptoms of bleeding or bruising or clotting. Bleeding, bruising, clotting discussed Nutritional guidance given Dose: 10MG X 2 DAYS/ 7.5MG X 5 DAYS F/U INR: 1 MONTH Patient verbalizes understanding of instructions given Anti-Coag Initial Assessment Social Hx Patient Tobacco Use Status: Former Tobacco user Tobacco use type: Cigarette alcohol intake: former Coding Level of Care Code Est Patient Level 1 Diagnoses Current use of anticoagulant therapy Z79.01 Results AMB INR Fingerstick AMB INR Fingerstick 2.7 Last Edit by Delphine Holland RN on 09/03/23 11:26 MANUAL ENTRY Assessment & Plan Assessment & Plan (1) Current use of anticoagulant therapy: Code(s): Z79.01 - chief environmental commitment officer (current) use of anticoagulants Category: Medical
== END 2023-09-03 11:34 | disposition home or self-care (01) ==
LOC: HO.ACS 10:59
PROVIDERS: PCP Internal Medicine; Visit Provider Internal Medicine
DX: Z79.01 Long term (current) use of anticoagulants (principal)

== ENCOUNTER → 2023-09-03 10:59 | Outpatient (BNVA) | payer MEDICARE, SELFPAY ==
[2022-08-10 10:10] VITALS: BMI 42.4
== END ==
PROVIDERS: PCP Internal Medicine; Visit Provider Internal Medicine
DX: I48.19 Other persistent atrial fibrillation (principal); Z79.01 Long term (current) use of anticoagulants; Z51.81 Encounter for therapeutic drug level monitoring
CPT/HCPCS: 85610; 99211

== ENCOUNTER 2023-10-01 10:22 | Outpatient (AMB) | payer MEDICARE, SELFPAY ==
[2022-08-10 10:10] VITALS: BMI 42.4
--- NOTE | 2023-10-01 10:26 | MHC.OFFVISCO ---
Intake Intake Visit Reasons: Anticoagulation Allergies ciprofloxacin [From CIPRO] Allergy (Intermediate, Verified 10/01/23 10:23) DIFFICULTY BREATHING vancomycin [VANCOMYCIN] Allergy (Intermediate, Verified 10/01/23 10:23) RASH, rash over whole body Medication List - Last Reconciled 10/01/23 by Teresa Philippe RN aspirin (Adult Low Dose Aspirin) 81 mg PO DAILY bumetanide 2 mg PO BID 90 days calcium carbonate 500 mg PO DAILY cholecalciferol (vitamin D3) 50 mcg PO DAILY losartan 100 mg PO DAILY metoprolol tartrate 100 mg PO BID 90 days multivitamin 1 tab PO DAILY omega-3 fatty acids-fish oil 360-1,200 mg (Fish Oil) 1 cap PO DAILY Oxygen Home Use As directed prednisolone acetate 1% drps ophthalmic (eye) rosuvastatin 20 mg PO BEDTIME 90 days tobramycin-dexamethasone 0.3-0.1 % 1 drp ophthalmic (eye) ONCE umeclidinium-vilanterol 62.5-25 mcg/actuation (Anoro Ellipta) 1 inh inhalation DAILY 90 days valacyclovir 500 mg PO DAILY vitamin B complex 1 tab PO DAILY warfarin See Protocol 10mg x 2 days/ 7.5mg x 5 days orally; Nursing Note INR: 2.7- in therapeutic range of 2-3 Medications and supplements reviewed No changes in health, diet, medications, or supplements, Denies any signs and symptoms of bleeding or bruising or clotting. Bleeding, bruising, clotting discussed Nutritional guidance given Dose: 10mg x 2, 7.5mg x 5 F/U INR: 4 weeks Patient verbalizes understanding of instructions given pt on cont oxygen Anti-Coag Initial Assessment Social Hx Patient Tobacco Use Status: Former Tobacco user Tobacco use type: Cigarette alcohol intake: former Coding Level of Care Code Est Patient Level 1 Diagnoses Current use of anticoagulant therapy Z79.01 Results AMB INR Fingerstick AMB INR Fingerstick 2.7 Last Edit by Teresa Philippe RN on 10/01/23 10:28 interface delay Assessment & Plan Assessment & Plan (1) Current use of anticoagulant therapy: Code(s): Z79.01 - 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
[2023-10-01 10:27] LABS: Prothrombin Time Whole Bld POC 31.8 sec (11.1-13.5); ~PT, ~INR - Anti Coag Clinic 2.7 (0.9-1.1)
== END 2023-10-01 10:32 | disposition home or self-care (01) ==
LOC: HO.ACS 10:22
PROVIDERS: PCP Internal Medicine; Visit Provider Internal Medicine
DX: Z79.01 Long term (current) use of anticoagulants (principal)

== ENCOUNTER → 2023-10-01 10:22 | Outpatient (BNVA) | payer MEDICARE, SELFPAY ==
[2022-08-10 10:10] VITALS: BMI 42.4
== END ==
PROVIDERS: PCP Internal Medicine; Visit Provider Internal Medicine
DX: I48.19 Other persistent atrial fibrillation (principal); Z79.01 Long term (current) use of anticoagulants; Z51.81 Encounter for therapeutic drug level monitoring
CPT/HCPCS: 85610; 99211

== ENCOUNTER 2023-10-05 10:44 | Outpatient (REF) | payer MEDICARE, SELFPAY ==
[2022-08-10 10:10] VITALS: BMI 42.4
[2023-10-05 11:23] LABS: MANUAL DIFF FLAG NO
[2023-10-05 11:38] LABS: Basophils Percent Auto 0.5 % (0-2); Eosinophils Percent Auto 0.5 % (0-4); Hematocrit 53.9 % (42.0-52.0); Hemoglobin 18.4 g/dl (14.0-18.0); Imm Gran Abs Auto 0.06 X10*3/uL (0.00-0.03); Lymphocytes Absolute Auto 1.2 X10*3/uL (1.2-4.9); Mean Corpuscular HGB Conc 34.1 g/dl (31.0-36.0); Mean Corpuscular Hemoglobin 32.3 pg (27.0-33.0); Mean Corpuscular Volume 94.6 fL (80.0-98.0); Mean Platelet Volume 9.9 fL (9.4-12.4); Monocytes Absolute Auto 0.8 X10*3/uL (0.1-1.2); Monocytes Percent Auto 13.4 % (2-11); Neutrophils Absolute Auto 3.9 x10*3/uL (2.0-8.3); Neutrophils Percent Auto 64.6 % (45-73); Platelet Count 190 X10*3/uL (160-400); White Blood Count 6.1 X10*3/uL (4.8-10.8)
[2023-10-05 11:41] LABS: INTERNATIONAL NORM RATIO 2.5 (0.9-1.1); Prothrombin Time 30.6 SEC (11.1-13.3)
[2023-10-05 11:58] LABS: B Type Natriuretic Peptide 750 pg/mL (<100)
[2023-10-05 12:27] LABS: Estimated Average Glucose 120 mg/dL; Hemoglobin A1c % 5.8 % (<6.0)
[2023-10-05 12:34] LABS: Alanine Aminotransferase 20 U/L (0-40); Albumin Level 4.2 g/dL (3.5-5.0); Alkaline Phosphatase 77 U/L (39-117); Anion Gap 11 (12-20); Aspartate Amino Transferase 17 U/L (5-37); Bilirubin Total 1.4 mg/dL (0.0-1.0); Blood Urea Nitrogen 19 mg/dL (9-16); Calcium 9.9 mg/dL (8.4-10.2); Carbon Dioxide 25 mmol/L (22-29); Chloride 109 mmol/L (96-108); Cholesterol 128 mg/dL (<200); Estimated Glomerular Filt Rate > 60; Glucose Random 148 mg/dL (60-115); HDL Cholesterol 34 mg/dL (>40); LDL Cholesterol Calculated 68 mg/dL (<100); Potassium 3.9 mmol/L (3.3-5.1); Sodium 141 mmol/L (135-145); Thyroid Stimulating Hormone 1.37 uIU/mL (0.32-4.0); Total Protein 6.8 g/dL (6.5-8.0); Triglycerides 132 mg/dL (<150)
[2023-10-05 12:37] LABS: Anion Gap 11 (12-20); Blood Urea Nitrogen 20 mg/dL (9-16); Calcium 9.9 mg/dL (8.4-10.2); Carbon Dioxide 26 mmol/L (22-29); Chloride 108 mmol/L (96-108); Estimated Glomerular Filt Rate > 60; Sodium 141 mmol/L (135-145); Vitamin D 25-OH Total 24.6 ng/mL (>30)
[2023-10-05 12:49] LABS: Creatinine Urine 13.97 mg/dL; Protein/Creatinine Ratio, Ur 2.29 (<0.2); Total Protein Urine Random 32 mg/dL (<12)
== END 2023-10-05 10:45 | disposition home or self-care (01) ==
LOC: HO.LAB 10:44
PROVIDERS: Visit Provider Internal Medicine Nephrology
DX: Z00.00 Encounter for general adult medical examination without abnormal findings (principal); Z13.220 Encounter for screening for lipoid disorders; D68.9 Coagulation defect, unspecified; Z13.1 Encounter for screening for diabetes mellitus
CPT/HCPCS: 36415; 80051; 80053; 80061; 82306; 82310; 82565; 82570; 83036; 83880; 84156; 84443; 84520; 85025; 85610

== ENCOUNTER 2023-10-29 09:51 | Outpatient (AMB) | payer MEDICARE, SELFPAY ==
[2022-08-10 10:10] VITALS: BMI 42.4
--- NOTE | 2023-10-29 10:06 | MHC.OFFVISCO ---
Intake Intake Visit Reasons: Anticoagulation Allergies ciprofloxacin [From CIPRO] Allergy (Intermediate, Verified 10/29/23 10:00) DIFFICULTY BREATHING vancomycin [VANCOMYCIN] Allergy (Intermediate, Verified 10/29/23 10:00) RASH, rash over whole body Medication List - Last Reconciled 10/29/23 by Teresa Philippe RN aspirin (Adult Low Dose Aspirin) 81 mg PO DAILY bumetanide 2 mg PO BID 90 days calcium carbonate 500 mg PO DAILY cholecalciferol (vitamin D3) 50 mcg PO DAILY losartan 100 mg PO DAILY metoprolol tartrate 100 mg PO BID 90 days multivitamin 1 tab PO DAILY omega-3 fatty acids-fish oil 360-1,200 mg (Fish Oil) 1 cap PO DAILY Oxygen Home Use As directed prednisolone acetate 1% drps ophthalmic (eye) rosuvastatin 20 mg PO BEDTIME 90 days tobramycin-dexamethasone 0.3-0.1 % 1 drp ophthalmic (eye) ONCE umeclidinium-vilanterol 62.5-25 mcg/actuation (Anoro Ellipta) 1 inh inhalation DAILY 90 days valacyclovir 500 mg PO DAILY vitamin B complex 1 tab PO DAILY warfarin See Protocol 10mg x 2 days/ 7.5mg x 5 days orally; Nursing Note INR: 2.5- in therapeutic range of 2-3 Medications and supplements reviewed- taking pine pollen for approx 1-2 weeks No changes in health, diet, medications, or supplements, Denies any signs and symptoms of bleeding or bruising or clotting. Bleeding, bruising, clotting discussed Nutritional guidance given Dose: 10mg x 2, 7.5mg x 5 F/U INR: 4 weeks Patient verbalizes understanding of instructions given pt on cont oxygen Anti-Coag Initial Assessment Social Hx Patient Tobacco Use Status: Former Tobacco user Tobacco use type: Cigarette alcohol intake: former Coding Level of Care Code Est Patient Level 1 Diagnoses Current use of anticoagulant therapy Z79.01 Results AMB INR Fingerstick AMB INR Fingerstick 2.5 Last Edit by Teresa Philippe RN on 10/29/23 10:08 Assessment & Plan Assessment & Plan (1) Current use of anticoagulant therapy: Code(s): Z79.01 - adjunct faculty for medical terminology (current) use of anticoagulants Category: Medical
[2023-10-29 10:08] LABS: Prothrombin Time Whole Bld POC 30.5 sec (11.1-13.5); ~PT, ~INR - Anti Coag Clinic 2.5 (0.9-1.1)
== END 2023-10-29 10:14 | disposition home or self-care (01) ==
LOC: HO.ACS 09:51
PROVIDERS: Visit Provider Internal Medicine
DX: Z79.01 Long term (current) use of anticoagulants (principal)

== ENCOUNTER → 2023-10-29 09:51 | Outpatient (BNVA) | payer MEDICARE, SELFPAY ==
[2022-08-10 10:10] VITALS: BMI 42.4
== END ==
PROVIDERS: Visit Provider Internal Medicine
DX: I48.19 Other persistent atrial fibrillation (principal); Z79.01 Long term (current) use of anticoagulants; Z51.81 Encounter for therapeutic drug level monitoring
CPT/HCPCS: 85610; 99211

== ENCOUNTER 2023-11-13 10:01 | Outpatient (AMB) | payer MEDICARE, SELFPAY ==
[2022-08-10 10:10] VITALS: BMI 42.4
--- NOTE | 2023-11-13 10:07 | A.OFFVIS_ITS ---
Vital Signs 11/13/23 10:09 Height 6 ft 2 in BP 134/70 Blood Pressure Location Lt brachial Position Sitting Pulse 67 Pulse Source Pulse Oximeter Pulse Oximetry (%) 86 L Oxygen Delivery Method Room Air Comment 2 Liters Oxygen([employer]) Intake Visit Reasons: COPD Allergies ciprofloxacin [From CIPRO] Allergy (Intermediate, Verified 11/13/23 10:07) DIFFICULTY BREATHING vancomycin [VANCOMYCIN] Allergy (Intermediate, Verified 11/13/23 10:07) RASH, rash over whole body HPI Comments Details: The patient is a 63-year-old woman known history of lymphoma in addition to interstitial lung disease. She has had significant shortness of breath and cough. More recently her IgG levels were checked and found to be in the 400s. The patient has had recurrent lower respiratory infections. She is going to be started on IgG therapy by her oncologist most likely. In the meantime we looked at her previous CT scans demonstrating areas of ground-glass opacities and interstitial lung disease. She did undergo bronchoscopy back in 2018 demonstrating chronic inflammatory patchy interstitial infiltrates. It was also noted that she had lymphocytic inflammatory cell infiltrate. Based on the fact that she response to prednisone, evidence of ground-glass opacities on her CT scan and also based on the fact that the biopsy showed chronic inflammatory changes these findings are not consistent with idiopathic pulmonary fibrosis. 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 She does need to some degree of immuno modulation to minimize inflammation and scarring. However, we should address the immunodeficiency prior to doing so. In the meantime the patient has been complaining of worsening cough and shortness of breath. We did review her CT scan of the chest that she had recently demonstrating interval worsening of the interstitial lung disease in some areas of ground-glass opacities now in the upper lung zones which she was free of disease. The patient understands that the best way of knowing was going on will be with a lung biopsy. However, the last time she went to a surgical consultation she decided to hold off after the discussion with the surgeon. Therefore diff point will do additional laboratory data to see if we can identify the process without having her to do a biopsy. At which point the patient would benefit from a immunomodulator to try to minimize to use prednisone as she has not been able to tolerated. Patient also having significant stress because she is going through a divorce. She is drinking significant amount of beer. We talked about how this also can affect the respiratory status. 06/14/2022 the patient is here for pulmonary follow-up visit. Overall he is doing well. The patient has been using the BiPAP every night. The BiPAP therapy has been affecting beneficial. The last download data demonstrated that his AHI was 4.5. Therefore, will go ahead increase the pressures from 18-19 cm and the expiratory pressure from 13-14 cm. He will continue using 3 L at nighttime. He needs to get supplies from his [employer] company, [employer] will submit a script for that. In addition to the C is using the diuretics with good effect. He continues use the respiratory medications. Unfortunately the Anoro was too expensive. I did print out a medication assistance for from the pharmaceutical company and will resend the Anoro again to the pharmacy. 10/26/2022 the patient is here for a pulmonary follow-up visit. The patient has been feeling dizzy lately. Just not himself. Denies any vertigo. He is not sure what could be. Although he noticed that in the morning when he was checking his blood pressure the heart rate was only in the 40s. He had him areas in the 50s and 60s at times and is AFib currently rate controlled. Is wondering if the low heart rate could be resulting in the dizziness. He did have blood work yesterday. Sugars seems to be okay. His kidney function since to be okay and electrolytes as well. His Bumex was increased further we did talk about auto toxicity but at this point he denies any decreased hearing and or tinnitus. The patient has been using the oxygen at 4 L with activity with good effect. Also use using the BiPAP at nighttime. He did have a recent echocardiogram done demonstrating that his a RV function is decrease in his mitral valve appears to be stenotic about a moderate to severe based on the report. I did reach out to the Cardiology to see if he can be seen on little bit sooner otherwise patient will continue with current therapy. He is going to continue to monitor the heart rate to make sure that it has not decreased further. He has been on metoprolol for a long time. Also recently he was starting to get more short of breath. His brain nitrate peptide was elevated and his Bumex was increased. This week he does feel better from a breathing standpoint. 02/21/2023 the patient is here for a pulmonary follow-up visit. The patient is doing about the same. Still complaining of dyspnea on exertion. He did follow-up with cardiology. Echocardiogram demonstrated a moderate degree of mitral stenosis. The patient also has evidence of pulmonary hypertension. A lot likely have to do with the valvular disease although he does have some COPD as well. I do believe that treating the mitral valve will help his overall respiratory status. Although, understand that with his underlying respiratory issues it would be higher in the risk profile. I will reach out to his ca rdiologist to see if there is any alternative rolls the question of a right heart catheterization and also a referral to a tertiary center where he can be provided other potential therapies. I do believe that intervening on the valve may be in his best interest. In the meantime he is okay to go back to pulmonary rehabilitation. He continue using the noninvasive ventilator at nighttime. He will continue using his oxygen as prescribed. 06/06/2023 the patient is here for a pulmonary follow-up visit. The patient overall has been doing well. The additional oxygen has been helpful. The patient still using the diuretic therapy. He will be following up with Cardiology soon. The patient does have some degree of pulmonary hypertension but also has mitral stenosis so therefore would be concerned about the use of vasodilators and causing worsening heart failure. He stopped going to pulmonary rehabilitation. I did encourage him to go back but he is concerned that he gets very short of breath with minimal activity. I did recommend he can look into online program such as the pulmonary while on this program online. He continues use the BiPAP. At this point will go ahead and recheck a blood gas. If his CO2 is elevated will go ahead and consider switching over to a AVAP, noninvasive ventilator. Patient will follow-up in about 4 months. His last chest x-ray was back in the fall 2022 which appeared to be without any acute disease possibly some vascular congestion. No additional imaging studies warranted right now. If he has any issues prior to that he will call for an e kit assessment. 11/13/2023 the patient is here for a pulmonary follow-up visit. Overall he is doing okay. He is working on weight loss. She already lost another 14 lb in the last few months. He has been proactive with his weight loss. He also continues to take his medications including his diuretics. He continues uses oxygen with good effect. He still requires between 4-8 L of oxygen per minute. Sometimes he gets a dry nose and sometimes epistaxis. He is going to start using the humidification and also can get some saline gel or water-based will forget for his nose to minimize irritation. In the meantime the patient needs to follow-up with cardiology. He does have what appears to be significant mitral stenosis that is likely worsening his pulmonary hypertension and is re spiratory failure. He is not a surgical candidate because of his significant pulmonary disease. However, wondering if he can have a catheter based approach to help him with his significant issue. In the meantime he does use the AVAP at nighttime. The AVAP therapy has been affecting beneficial. He does use it for more than 4 hours a night. He did have a blood gas in his CO2 is reassuring. He does find the machine helpful. The patient follow-up in 6 months with us. He will see cardiology soon and hopefully they can potentially refer him to a tertiary center where he may have other potential alternative therapies for his mitral stenosis. [facility] Medical History Mitral stenosis Pulmonary hypertension SOB (shortness of breath) Cor pulmonale Dyspnea Oxygen dependent Chronic hypoxemic respiratory failure Sleep apnea COPD (chronic obstructive pulmonary disease) Hyperlipidemia Atrial fibrillation Hypertension, essential Current use of anticoagulant therapy Surgical History History of carpal tunnel surgery History of colonoscopy History of thumb surgery History of mitral valve repair History of umbilical hernia History of tonsillectomy History of vasectomy Family History Father No problems noted. Mother No problems noted. Brother No problems noted. Sister Mental health disorder Sister No problems noted. Sister No problems noted. Sister No problems noted. Son No problems noted. Daughter No problems noted. Social History Household Members: None Housing: Apartment Do you presently have visiting nurse or other home services: No Alcohol intake: former Patient Tobacco Use Status: Former Tobacco user Tobacco use type: Cigarette Years Smoked: 25 e-Cigarette/Vaping Use: Never Used Second Hand Smoke Exposure: Yes (cigar smoke) Substance Use Type: Marijuana Advance Directives Date on File: 07/12/20 service: No Current occupational status: disabled Cognitive needs: No Hearing needs: No Vision needs: Yes Review of Systems Const Denies chills, Denies fever(s) and Reports weight loss ENT Denies epistaxis and Denies nasal discharge Card Denies chest pain and Reports dyspnea on exertion Resp Denies chest congestion, Denies cough, Denies hemoptysis and Reports dyspnea on exertion GI Denies diarrhea and Denies nausea Musc Reports myalgias Skin/Breast Denies rash Neuro Reports no additional complaints Psych Reports no additional complaints Endo Reports no additional complaints Physical Exam Vital Signs: Last Vital Signs Pulse 67 11/13/23 10:09 BP 134/70 11/13/23 10:09 Pulse Ox 86 L 11/13/23 10:09 Oxygen Delivery Method Room Air 11/13/23 10:09 Const General: alert HEENT General nose exam: Abnormal external nose present and Nasal discharge present Neck Neck: Yes normal visual inspection, Yes full ROM and Yes no lymphadenopathy Chest Chest palpation & inspection: normal inspection of the chest Resp Effort & Inspection: normal respiratory effort Auscultation: diminished lung sounds Cardio Rate: regular rate Rhythm: abnormal rhythm Heart sounds: S1 normal heart sound present, S2 normal heart sound present and Murmur heart sound present GI Palpation (GI): Soft to palpation and nontender Auscultation: normal bowel sounds Skin General skin exam: rashes and/or lesions noted Extrem General: Yes clubbing and Yes edema Assessment & Plan Assessment & Plan (1) Pulmonary hypertension: Code(s): I27.20 - Pulmonary hypertension, unspecified Category: Medical (2) Dyspnea: Code(s): R06.00 - Dyspnea, unspecified Category: Medical Qualifiers: Dyspnea type: dyspnea on exertion Qualified Code(s): R06.00 - Dyspnea, unspecified (3) COPD (chronic obstructive pulmonary disease): Code(s): J44.9 - Chronic obstructive pulmonary disease, unspecified Category: Medical Qualifiers: COPD type: emphysema Emphysema type: panlobular Qualified Code(s): J43.1 - Panlobular emphysema (4) Mitral stenosis: Code(s): I05.0 - Rheumatic mitral stenosis Category: Medical Qualifiers: Cardiac valve disease etiology: etiology unspecified Qualified Code(s): I05.0 - Rheumatic mitral stenosis (5) SOB (shortness of breath): Code(s): R06.02 - Shortness of breath Category: Medical Plan Continue NIV therapy, JL AHI, oxygen 4L Continue oxygen therapy 4 L at rest, 8 L with activity diuresis with BUmex will f/u with cardiology re: mitral stenosis, likely worsening ? cather based approach continue Anoro daily CXR F/U 4-6 months Orders: Orders XR chest 2V Today R06.02 - Shortness of breath Coding Level of Care Code Est Pt Level 4 (68517) Complex EM visit Add On G2211 Diagnoses Pulmonary hypertension I27.20 Dyspnea on exertion R06.00 Dyspnea type: dyspnea on exertion Panlobular emphysema J43.1 COPD type: emphysema Emphysema type: panlobular Mitral valve stenosis, unspecified etiology I05.0 Cardiac valve disease etiology: etiology unspecified SOB (shortness of breath) R06.02 Time Spent (min) 17
[2023-11-13 10:09] VITALS: BP 134/70; PULSE 67; O2SAT 86
== END 2023-11-13 10:34 | disposition home or self-care (01) ==
PROVIDERS: PCP Internal Medicine; Visit Provider Hospitalist
DX: I27.20 Pulmonary hypertension, unspecified (principal); R06.00 Dyspnea, unspecified; J43.1 Panlobular emphysema; I05.0 Rheumatic mitral stenosis; R06.02 Shortness of breath
CPT/HCPCS: 99214; G2211

== ENCOUNTER → 2023-11-13 10:01 | Outpatient (BNVA) | payer MEDICARE, SELFPAY ==
[2022-08-10 10:10] VITALS: BMI 42.4
== END ==
PROVIDERS: PCP Internal Medicine; Visit Provider Hospitalist
DX: J43.1 Panlobular emphysema (principal); I27.20 Pulmonary hypertension, unspecified; I05.0 Rheumatic mitral stenosis; R06.02 Shortness of breath; R06.00 Dyspnea, unspecified
CPT/HCPCS: 99212

== ENCOUNTER 2023-11-15 15:06 | Outpatient (REF) | payer MEDICARE, SELFPAY ==
[2022-08-10 10:10] VITALS: BMI 42.4
[2023-11-15 15:34] LABS: MANUAL DIFF FLAG NO
[2023-11-15 15:53] LABS: Basophils Absolute Auto 0.1 X10*3/uL (0.0-0.2); Basophils Percent Auto 0.8 % (0-2); Eosinophils Absolute Auto 0.1 X10*3/uL (0.0-0.4); Eosinophils Percent Auto 0.6 % (0-4); Hemoglobin 19.1 g/dl (14.0-18.0); Imm Gran Abs Auto 0.05 X10*3/uL (0.00-0.03); Imm Gran Pct Auto 0.6 % (0.0-0.4); Lymphocytes Percent Auto 25.3 % (20-40); Mean Corpuscular HGB Conc 33.6 g/dl (31.0-36.0); Mean Corpuscular Hemoglobin 31.9 pg (27.0-33.0); Mean Corpuscular Volume 94.8 fL (80.0-98.0); Mean Platelet Volume 10.2 fL (9.4-12.4); Monocytes Absolute Auto 0.7 X10*3/uL (0.1-1.2); Monocytes Percent Auto 8.6 % (2-11); Neutrophils Percent Auto 64.1 % (45-73); Platelet Count 181 X10*3/uL (160-400); Red Blood Count 5.99 X10*6/uL (4.60-5.80); Red Cell Distribution Width 14.7 % (11.0-16.0); White Blood Count 7.8 X10*3/uL (4.8-10.8)
[2023-11-15 15:58] LABS: Appearance Urine Clear; Color Urine Yellow; Glucose Urine UA Negative (Negative); Leukocyte Esterase Urine Negative (Negative); Nitrite Urine Negative (Negative); UMIC TRIGGER UA YES; Urine Blood Negative (Negative); Urine Ketones Negative (Negative); Urine Protein 300 (3+) mg/dL (Neg-Trace)
[2023-11-15 16:03] LABS: Bacteria Urine None Seen (None Seen); Hyaline Casts Urine 0-2 /LPF (0-2); RBC Urine 0-2 /HPF (0-2); Squamous Epithelial Cell Urine 0-2 /HPF (0-2); WBC Urine 0-5 /HPF (0-5)
[2023-11-15 16:16] LABS: Anion Gap 15 (12-20); Blood Urea Nitrogen 17 mg/dL (9-16); Calcium 9.9 mg/dL (8.4-10.2); Carbon Dioxide 29 mmol/L (22-29); Chloride 101 mmol/L (96-108); Estimated Glomerular Filt Rate > 60; Glucose Random 141 mg/dL (60-115); Potassium 3.9 mmol/L (3.3-5.1); Sodium 141 mmol/L (135-145)
[2023-11-15 16:35] LABS: Hematocrit 56.8 % (42.0-52.0)
[2023-11-15 17:08] LABS: Creatinine Urine 58.43 mg/dL; Protein/Creatinine Ratio, Ur 2.91 (<0.2); Total Protein Urine Random 170 mg/dL (<12)
[2023-11-15 17:15] LABS: Microalbum/Creatinine Ratio Ur 2253.9 ug/mg cr (<30)
[2023-11-16 08:36] LABS: HBc Num1 0.19 S/CO (0.00-0.79); HBsAGNum1 0.52 S/CO (0.00-0.99); Hepatitis B Core Antibody Nonreactive (Nonreactive); Hepatitis B Surface Antigen Negative (Negative); ~Hepatitis B Surface Antibody REACTIVE (Nonreactive); ~Hepatitis C Antibody Nonreactive (Nonreactive)
[2023-11-16 09:13] LABS: Complement C3 128 mg/dL (82-185)
[2023-11-18 07:38] LABS: HIV RNA PCR Qn Copies Not Detected Copies/mL; HIV RNA PCR Qn Log Copies Not Detected Log cps/mL
[2023-11-19 14:09] LABS: Anti Nuclear Antibody Screen NEGATIVE (NEGATIVE)
[2023-11-22 11:16] LABS: Kappa Light Chain, Free Serum 15.5
[2023-11-22 11:17] LABS: Lambda Light Chain, Free Serum 11.8
[2023-11-22 11:18] LABS: Kappa/Lambda Lt Ch Free Ratio 1.31
[2023-11-22 11:19] LABS: Cystatin C 1.11; eGFR (Cystatin C) 67
[2023-11-24 15:08] LABS: Phospholipase A2 IgG ELISA <4 RU/mL; Phospholipase A2 IgG IFA NEGATIVE (NEGATIVE)
== END 2023-11-15 15:07 | disposition home or self-care (01) ==
LOC: HO.LAB 15:06
PROVIDERS: Visit Provider Internal Medicine
DX: N18.2 Chronic kidney disease, stage 2 (mild) (principal); R80.8 Other proteinuria
CPT/HCPCS: 36415; 80048; 81001; 81003; 82043; 82570; 82610; 83520; 83521; 84156; 85025; 86038; 86160; 86255; 86704; 86706; 86803; 87340; 87536; 87900

== ENCOUNTER 2023-11-30 08:56 | Outpatient (AMB) | payer MEDICARE, SELFPAY ==
[2022-08-10 10:10] VITALS: BMI 42.4
[2023-11-30 09:07] LABS: Prothrombin Time Whole Bld POC 33.1 sec (11.1-13.5); ~PT, ~INR - Anti Coag Clinic 2.8 (0.9-1.1)
--- NOTE | 2023-11-30 09:39 | MHC.OFFVISCO ---
Intake Intake Visit Reasons: Anticoagulation Allergies ciprofloxacin [From CIPRO] Allergy (Intermediate, Verified 11/30/23 09:01) DIFFICULTY BREATHING vancomycin [VANCOMYCIN] Allergy (Intermediate, Verified 11/30/23 09:01) RASH, rash over whole body Nursing Note PT.HAS STOPPED WARFARIN ON 11/25 PER MD. WILL CONTINUE TO HOLD TODAY AND TOMORROW(INR IS 2.8 TODAY) THEN START ELIQUIS IN AM ON 12/01 (5MGM BID) PT.STATES THAT HE IS PICKING UP THE SCRIPT TODAY. PT.VERB.GOOD UNDERSTANDING OF INSTRUCTIONS RE ELIQUIS AND AGREES TO CALL [facility] IF HE HAS ANY QUESTIONS OR CONCERNS THAT ARISE. CAN CALL [facility] AT ANY TIME Anti-Coag Initial Assessment Social Hx Patient Tobacco Use Status: Former Tobacco user Tobacco use type: Cigarette alcohol intake: former Coding Level of Care Code Est Patient Level 1 Diagnoses Current use of anticoagulant therapy Z79.01 Assessment & Plan Assessment & Plan (1) Current use of anticoagulant therapy: Code(s): Z79.01 - USP (current) use of anticoagulants Category: Medical
== END 2023-11-30 09:45 | disposition home or self-care (01) ==
LOC: HO.ACS 08:56
PROVIDERS: Visit Provider Internal Medicine
DX: Z79.01 Long term (current) use of anticoagulants (principal)

== ENCOUNTER → 2023-11-30 08:56 | Outpatient (BNVA) | payer MEDICARE, SELFPAY ==
[2022-08-10 10:10] VITALS: BMI 42.4
== END ==
PROVIDERS: Visit Provider Internal Medicine
DX: I48.19 Other persistent atrial fibrillation (principal); Z79.01 Long term (current) use of anticoagulants; Z51.81 Encounter for therapeutic drug level monitoring
CPT/HCPCS: 85610; 99211

== ENCOUNTER 2023-12-17 10:03 | Outpatient (AMB) | payer MEDICARE, SELFPAY ==
[2022-08-10 10:10] VITALS: BMI 42.4
[2023-12-17 10:29] VITALS: BP 108/70; PULSE 58; BMI 39.9
--- NOTE | 2023-12-17 10:29 | A.OFFVIS_ITS ---
Vital Signs 12/17/23 10:29 Height 6 ft 2 in Weight 310 lb 6.574 oz BMI 39.9 BP 108/70 Blood Pressure Location Lt brachial Position Sitting Pulse 58 Intake Visit Reasons: 6m follow up Mirror Polisher Required: No Accompanied by: Self / Same As Patient Allergies ciprofloxacin [From CIPRO] Allergy (Intermediate, Verified 11/30/23 09:01) DIFFICULTY BREATHING vancomycin [VANCOMYCIN] Allergy (Intermediate, Verified 11/30/23 09:01) RASH, rash over whole body Medication List - Last Reconciled 12/17/23 by Maxwell Enriquez MD apixaban 5 mg PO BID aspirin (Adult Low Dose Aspirin) 81 mg PO DAILY bumetanide 2 mg PO BID 90 days calcium carbonate 500 mg PO DAILY cholecalciferol (vitamin D3) 50 mcg PO DAILY losartan 100 mg PO DAILY metoprolol tartrate 100 mg PO BID 90 days multivitamin 1 tab PO DAILY omega-3 fatty acids-fish oil 360-1,200 mg (Fish Oil) 1 cap PO DAILY Oxygen Home Use As directed prednisolone acetate 1% drps ophthalmic (eye) rosuvastatin 20 mg PO BEDTIME 90 days umeclidinium-vilanterol 62.5-25 mcg/actuation (Anoro Ellipta) 1 inh inhalation DAILY 90 days valacyclovir 500 mg PO DAILY vitamin B complex 1 tab PO DAILY HPI Comments Details: Ketan returns for follow-up. Transferred care from [facility]. Multiple medical comorbidities including morbid obesity, chronic diastolic congestive heart failure, history of mitral valve repair more than 10 years ago, COPD, pulmonary hypertension. Per patient, during the time of mitral valve surgery did not get any coronary interventions. He remains on supplemental oxygen. Overall, shortness of breath is just about the same as before. With any activity, he does get short of breath. He comes to the clinic with oxygen. No clear angina. He has atrial fibrillation but does not have any palpitations. He states that he gets some dizziness intermittently. Amlodipine was stopped in the past. Blood pressure is slightly low and that could play a role. [facility] Medical History Mitral stenosis Pulmonary hypertension SOB (shortness of breath) Cor pulmonale Dyspnea Oxygen dependent Chronic hypoxemic respiratory failure Sleep apnea COPD (chronic obstructive pulmonary disease) Hyperlipidemia Atrial fibrillation Hypertension, essential Current use of anticoagulant therapy Surgical History History of carpal tunnel surgery History of colonoscopy History of thumb surgery History of mitral valve repair History of umbilical hernia History of tonsillectomy History of vasectomy Family History Father No problems noted. Mother No problems noted. Brother No problems noted. Sister Mental health disorder Sister No problems noted. Sister No problems noted. Sister No problems noted. Son No problems noted. Daughter No problems noted. Social History Household Members: None Housing: Apartment Do you presently have visiting nurse or other home services: No Alcohol intake: former Patient Tobacco Use Status: Former Tobacco user Tobacco use type: Cigarette Years Smoked: 25 e-Cigarette/Vaping Use: Never Used Second Hand Smoke Exposure: Yes (cigar smoke) Substance Use Type: Marijuana Advance Directives Date on File: 07/12/20 service: No Current occupational status: disabled Cognitive needs: No Hearing needs: No Vision needs: Yes Review of Systems Const Denies chills, Denies fatigue, Denies fever(s), Denies weight gain and Denies weight loss ENT Denies dizziness Card Reports chest pain, Denies leg edema, Denies lightheadedness, Reports palpi tations, Reports dyspnea on exertion, Denies orthopnea and Denies other Resp Denies cough and Reports dyspnea on exertion GI Denies hematochezia and Denies change in stool character Musc Denies abnormal gait, Denies muscle weakness, Denies numbness, Denies radiating pain into limb and Denies tingling Neuro Denies abnormal gait, Denies dizziness, Denies numbness and Denies tingling Endo Denies fatigue and Reports palpitations Physical Exam Vital Signs: Last Vital Signs Pulse 58 12/17/23 10:29 BP 108/70 12/17/23 10:29 BMI result Body Mass Index 39.9 Const General: comfortable and no acute distress Orientation/consciousness: patient oriented x3 HEENT Other: Unremarkable Head: Yes normal to inspection Neck Neck: Yes normal visual inspection Chest Chest palpation & inspection: normal inspection of the chest Resp Other: Few inspiratory crackles Auscultation: diminished lung sounds Cardio Palpation: normal PMI Heart sounds: S1 normal heart sound present, S2 normal heart sound present, no gallops, no murmurs and no rubs GI Palpation (GI): Soft to palpation Back/Spine/Pelvis Other: unremarkable Skin General skin exam: no rashes or lesions noted Neuro General: patient oriented x3 Extrem General: Yes normal to inspection Psych Mental Status: mental status grossly normal Office Procedures EKG Details: EKG shows atrial fibrillation; 58/Min; right bundle-branch block, left posterior fascicular block and nonspecific ST-T changes. 86125-[id number], Complete Assessment & Plan Assessment & Plan (1) Status post mitral valve repair: Code(s): Z98.890 - Other specified postprocedural states Category: Surgical Plan: In the most recent echocardiogram, mean gradient across the mitral valve 4 mm Hg. Gradients compared over the last several years, but there is no significant change. Overall, do not believe that there is any significant valvular dysfunction. Unlikely that this is playing any role in his shortness of breath. Even otherwise, he is a high-risk candidate for any redo surgery. (2) Persistent atrial fibrillation: Code(s): I48.19 - Other persistent atrial fibrillation Category: Medical Plan: Per patient, multiple prior cardioversions. Continue metoprolol for rate control. Continue warfarin. (3) Chronic diastolic (congestive) heart failure: Code(s): I50.32 - Chronic diastolic (congestive) heart failure Category: Medical Plan: Continue diuretics. Add Farxiga. Shortness of breath itself is likely multifactorial and from some combination of obesity, pulmonary issues, congestive heart failure, atrial fibrillation. (4) Pulmonary hypertension: Code(s): I27.20 - Pulmonary hypertension, unspecified Category: Medical Plan: Likely from some combination of cardiac as well as pulmonary etiology. Weight loss if he can do but may not be feasible. Diuretics. (5) Arterial hypotension: Code(s): I95.9 - Hypotension, unspecified Category: Medical Qualifiers: Hypotension type: hypotension due to drug Qualified Code(s): I95.2 - Hypotension due to drugs Plan: Amlodipine has been stopped. He can cut back on the Losartan to 1/2 tablet-50 mg daily. If he feels better with that, then we can just change the dose to losartan 50 mg daily. Orders: Orders CA echo transthoracic complete 6 Months Z98.890 - Other specified postprocedural states Medications: New dapagliflozin propanediol (Farxiga) 10 mg PO DAILY 90 tabs 3RF Refilled metoprolol tartrate 100 mg PO BID 180 tabs 3RF 90 days Coding Level of Care Code Est Pt Level 4 (12857) Diagnoses Status post mitral valve repair Z98.890 Persistent atrial fibrillation I48.19 Chronic diastolic (congestive) heart failure I50.32 Pulmonary hypertension I27.20 Hypotension due to drugs I95.2 Hypotension type: hypotension due to drug CPT Codes EKG - CPT: 07271-[id number], Complete ([id number])
== END 2023-12-17 11:00 | disposition home or self-care (01) ==
PROVIDERS: Visit Provider Internal Medicine
DX: Z98.890 Other specified postprocedural states (principal); I48.19 Other persistent atrial fibrillation; I50.32 Chronic diastolic (congestive) heart failure; I27.20 Pulmonary hypertension, unspecified; I95.2 Hypotension due to drugs
CPT/HCPCS: 93010; 99214

== ENCOUNTER → 2023-12-17 10:03 | Outpatient (BNVA) | payer MEDICARE, SELFPAY ==
[2022-08-10 10:10] VITALS: BMI 42.4
== END ==
PROVIDERS: PCP Internal Medicine; Visit Provider Internal Medicine
DX: I27.20 Pulmonary hypertension, unspecified (principal); I48.19 Other persistent atrial fibrillation; I50.32 Chronic diastolic (congestive) heart failure; I95.2 Hypotension due to drugs; E66.01 Morbid (severe) obesity due to excess calories; J44.9 Chronic obstructive pulmonary disease, unspecified; Z99.81 Dependence on supplemental oxygen; Z98.890 Other specified postprocedural states; Z95.2 Presence of prosthetic heart valve
CPT/HCPCS: 93005; 99212

== ENCOUNTER 2024-02-14 13:53 | Outpatient (REF) | payer MEDICARE, SELFPAY ==
[2022-08-10 10:10] VITALS: BMI 42.4
[2024-02-14 14:12] LABS: MANUAL DIFF FLAG NO
[2024-02-14 14:51] LABS: Appearance Urine Clear; Color Urine Yellow; Glucose Urine UA 250 mg/dL (Negative); Leukocyte Esterase Urine Negative (Negative); Nitrite Urine Negative (Negative); PH 7.5 (5.0-9.0); Specific Gravity - Urine <= 1.005 (1.005-1.025); UMIC TRIGGER UA YES; Urine Blood Negative (Negative); Urine Ketones Negative (Negative); Urine Protein 30 (1+) mg/dL (Neg-Trace)
[2024-02-14 14:52] LABS: Estimated Average Glucose 126 mg/dL; Hemoglobin A1C 207.0447 umol/L; Total Hemoglobin (HGBA1C) 4954.9358 umol/L
[2024-02-14 14:54] LABS: Basophils Percent Auto 0.6 % (0-2); Eosinophils Percent Auto 0.6 % (0-4); Hematocrit 55.9 % (42.0-52.0); Hemoglobin 18.8 g/dl (14.0-18.0); Imm Gran Abs Auto 0.06 X10*3/uL (0.00-0.03); Imm Gran Pct Auto 0.9 % (0.0-0.4); Lymphocytes Absolute Auto 1.4 X10*3/uL (1.2-4.9); Lymphocytes Percent Auto 20.3 % (20-40); Mean Corpuscular HGB Conc 33.6 g/dl (31.0-36.0); Mean Corpuscular Hemoglobin 31.1 pg (27.0-33.0); Mean Corpuscular Volume 92.5 fL (80.0-98.0); Mean Platelet Volume 11.1 fL (9.4-12.4); Monocytes Absolute Auto 0.7 X10*3/uL (0.1-1.2); Monocytes Percent Auto 10.3 % (2-11); Neutrophils Absolute Auto 4.6 x10*3/uL (2.0-8.3); Neutrophils Percent Auto 67.3 % (45-73); Platelet Count 88 X10*3/uL (160-400); Red Blood Count 6.04 X10*6/uL (4.60-5.80); Red Cell Distribution Width 17.1 % (11.0-16.0); White Blood Count 6.8 X10*3/uL (4.8-10.8)
[2024-02-14 14:56] LABS: Bacteria Urine None Seen (None Seen); Hyaline Casts Urine 0-2 /LPF (0-2); RBC Urine 0-2 /HPF (0-2); Squamous Epithelial Cell Urine 0-2 /HPF (0-2); WBC Urine 0-5 /HPF (0-5)
--- OUTSIDE RECORDS SUMMARY | 2024-02-14 15:04 | XMS_ITS ---
Author Organization [facility] Address [address] [place] [address] Care Team Providers Care Timber Cruiser Name Role Phone ALEX RAJAN Unavailable [phone] REASON FOR VISIT BC[employer] insurance referral Encounters Encounter Location Date Provider Diagnosis [address] [facility] [address] [place] [address] 01/01/2024 ALEX RAJAN PLAN OF TREATMENT Next Appt Details Provider Name:ALEX Arango, 04/30/2024 10:00:00 AM, [address] [facility], [address], [place], [address], Progress Notes * Ketan RICHARDDOB:1960 ( 63 yo M)Acc No.[id number]:01/01/2024 Patient:??Ketan RICHARD :1960?Age:63 Y?Sex:Jreson blake Address:[address] [place] [id number] * true * Date:??
--- OUTSIDE RECORDS SUMMARY | 2024-02-14 15:04 | XMS_ITS | Patient Health Record ---
Author Organization [facility] Address [address] [place] [address] Care Team Providers Care Surveillance Systems Engineer Name Role Phone ALEX RAJAN Unavailable [phone] ALLERGIES Allergen (clinical drug ingredient) Drug/Non Drug Allergy documented on EMR Reaction Allergy Type Onset Date Status ciprofloxacin Cipro shortness of breath Drug Allergy Active vancomycin Vancocin rash Drug Allergy Active RESULTS Component Value Reference Range Notes EKG (Not yet reviewed by pro vider) Interpretation: Performing Lab: Notes/Report: ECGDiastolicBP 72 ECGHr 60 ECGPRInterval 0 ECGPWaveAxis 1 ECGQRSDuration 126 ECGQrsWaveAxis 43 ECGQTcInterval 464 ECGQTInterval 464 ECGSystolicBP 130 ECGTWaveAxis 90 RR_DiastolicBP 0 RR_MaxRRInterval 0 RR_MeanHR 0 RR_MeanRRInterval 0 RR_MinRRInterval 0 RR_NumBeats 0 RR_NumNormalBeats 0 RR_SystolicBP 0 REASON FOR REFERRAL Reason [facility]/ Dr. Lang Diagnosis 1 Chronic obstructive asthma (J44.9) Referral Organization [address] Referring Provider First Name ALEX Referring Provider Last Name ROUSSEAU Referring Provider Speciality Preventive Medicine Referred Provider Specialty Pulmonology General Notes Kaylee Mata 024 04:21:20 PM > Referral faxed over to Dr. Niels Lang Referral Priority Routine Reason Crowdlinker Diagnosis 1 Shortness of breath (R06.02) Referral Organization [address] Referring Provider First Name ALEX Referring Provider Last Name ROUSSEAU Referring Provider Speciality Preventive Medicine Referred Provider Specialty Other Medica l Care General Notes Kaylee Mata 024 04:30:23 PM > Referral sent due to cardiac/pulmonary hx Referral Priority Routine MEDICATIONS Medication SIG (Take, Route, Frequency, Duration) Notes Start Date End Date Status Warfarin Sodium 7.5 MG 1 tablet Orally X5 DAYS Not-Taking Albuterol Active Anoro Ellipta 62.5-25 MCG/ACT 1 puff Inhalation Once a day Active Fish Oil Active Bumetanide 2 MG 1 tablet Orally Once a day Active Calcium Active B Complex Active Aspirin 81 Active Losartan Potassium 50 MG 1 tablet Orally Once a day Active Metoprolol Succinate 100 MG 1 capsule Orally Twice a day Active Farxiga 10 MG 1 tablet Orally Once a day Active Rosuvastatin Calcium 20 MG 1 tablet Orally Once a day for 90 days 10/30/2023 Active Eliquis 5 MG as directed Orally Active PROBLEMS Problem Type ICD Code Onset Dates Problem Status W/U Status Risk SNOMED Code Notes Problem Coagulation defect, unspecified (D68.9) Active confirmed 70725574 Problem Paroxysmal atrial fibrillation (I48.0) Active confirmed Paroxysmal atrial fibrillation (520483272) Problem Chronic diastolic (congestive) heart failure (I50.32) Active confirmed Chronic diastolic heart failure (629144101) Problem Heart failure, unspecified (I50.9) Active confirmed Heart failure (21263800) Problem Shortness of breath (R06.02) Active confirmed Shortness of breath (988508961) Problem Chronic congestive heart failure, unspecified heart failure type (I50.9) Active confirmed 90660346 Problem Atrial fibrillation, unspecified type (I48.91) Active confirmed 22237947 Problem Arthritis (M19.90) Active confirmed Arthritis (7052110) Problem Chronic obstructive pulmonary disease, unspecified COPD type (J44.9) Active confirmed 03557532 Problem Pulmonary hypertension (I27.20) Active confirmed Pulmonary hypertension (27990051) Problem Advance care planning (Z71.89) Active confirmed 213711995 Problem Primary hypertension (I10) Active confirmed 39473873 Problem Chronic atrial fibrillation (I48.20) Active confirmed 011947779 Problem Chronic obstructive asthma (J44.9) Active confirmed Chronic obstructive asthma co-occurrent with acute exacerbation of asthma (disorder) (191366670744127 02) Problem COPD without exacerbation (J44.9) Active confirmed Chronic obstructive lung disease (23571208) Problem Medical orders for life-sustaining treatment (MOLST) form in chart (Z78.9) Active confirmed 940365262 Problem Need for home health care (Z74.2) Active confirmed 878007197 VITAL SIGNS Heart Rate 74 /min 01/22/2024 Respiratory Rate 24 /min 10/16/2023 Oximetry 95 % 01/22/2024 Blood pressure diastolic 68 mm Hg 01/22/2024 Height 71 in 01/22/2024 Blood pressure systolic 104 mm Hg 01/22/2024 Weight 312 lbs 01/22/2024 BMI 43.51 kg/m2 01/22/2024 Encounters Encounter Location Date Provider Diagnosis [address] [place] [address] 10/02/2023 ALEX ROUSSEAU Chronic congestive heart failure, unspecified heart failure type I50.9 ; Chronic obstructive pulmonary disease, unspecified COPD type J44.9 ; Atrial fibrillation, unspecified type I48.91 and Primary hypertension I10 [address] [place] [address] 10/16/2023 ALEX ROUSSEAU COPD without exacerbation J44.9 ; Pulmonary hypertension I27.20 ; Chronic diastolic (congestive) heart failure I50.32 ; Chronic atrial fibrillation I48.20 ; Primary hypertension I10 and Advance care planning Z71.89 [address] [place] [address] 01/22/2024 ALEX ROUSSEAU Chronic congestive heart failure, unspecified heart failure type I50.9 ; Atrial fibrillation, unspecified type I48.91 ; Primary hypertension I10 ; Chronic obstructive pulmonary disease, unspecified COPD type J44.9 ; Pulmonary hypertension I27.20 and Need for home health care Z74.[address] [place] [address] 10/17/20[facility] [address] [place] [address] 10/23/2023 [facility] [address] [place] [address] 10/24/[address] [facility] [address] [place] [address] 10/30/[address] [facility] [address] [place] [address] 11/06/[address] [facility] [address] [place] [address] 11/08/2023 [facility] [address] [place] [address] 11/09/2023 [facility] [address] [place] [address] 11/29/[address] [place] [address] 12/21/2023 [facility] [address] [place] [address] 12/26/2023 [facility] [address] [place] [address] 01/01/[address] [facility] [address] [place] [address] 01/22/2024 ALEX ROUSSEAU ASSESSMENTS Encounter Date Diagnosis Assessment Notes Treatment Notes Treatment Clinical Notes Section Notes 10/02/2023 Chronic congestive heart failure, unspecified heart failure type (ICD-10 - I50.9) Ketan is a 63-year-old male with PMH of COPD on supplemental O2, CHF, afib, that presents today to establish care as a new patient. New patient paperwork reviewed. #Congestive heart failure/A-fib: Patient presented to office with bradycardic rate read on vitals instrument. Patient denies current cardiac symptoms. EKG obtained in office reveals A-fib with controlled rate at [address] elevations or ischemic changes noted. Patient currently taking metoprolol 100 mg twice daily, bumetanide 2 mg daily, warfarin 7.5 mg x 5 days (+/- 10 mg on Mondays and Fridays depending on INR), and rosuvastatin 20 mg daily. Follows with radiophone operator Dr. Enriquez with [facility]. Most recent INR drawn 10/01/2023 -resulted 2.7 which the patient reports is consistent with baseline. Reports he is scheduled to follow-up with cardiology in about 1 month. Plan to request records for continued evaluation. Recommending no changes to current regimen at this time. #HTN: BP in office 130/72. Continue losartan 100 mg daily. #COPD: Patient on 4 L supplemental oxygen at baseline. O2 saturation on arrival to office read 77% on vitals instrument. Upon deep breathing O2 saturation increased to mid 80s. Patient currently on 2 L as he reports his mobile oxygen tank runs out quickly. At home while on 4 L states baseline O2 saturation is mid-high 80s. Patient without visible signs of respiratory distress, no perioral cyanosis. Breaths are even and nonlabored, no accessory muscle use, no retractions, lungs clear on exam. Patient currently taking Anoro inhaler daily and using albuterol as needed for shortness of breath. Follows with magneto repairer Dr. Lang with [facility]. Plan to request records for continued care. Recommending no changes to current regimen at this time. #Labs: Baseline laboratory evaluation ordered to be evaluated in 2 weeks at time of follow-up visit. #Most/Healthcare proxy: Patient provided with MOST form and healthcare proxy form. Discussed the importance of having such wishes documented them on file. Patient plans to discuss matters with his son and return to office in 2 weeks with completed paperwork. #Medical marijuana: Patient interested in medical marijuana, he understands he should not smoke this and would like to use edible marijuana products for management of discomfort. Discussed that we are not licensed medical marijuana prescribers, and that he would need to seek care by a licensed provider in order to obtain medical marijuana card. Patient demonstrates understanding. ED protocol reviewed. The patient is encouraged to seek immediate medical attention/dial 911 should he develop any shortness of breath, confusion, syncope, chest pain. All questions answered to the patient's satisfaction. Patient demonstrates understanding of diagnosis and treatments discussed. Follow-up in 2 weeks, sooner should any questions/concerns arise. Case discussed with collaborating physician Monica Stanley who has reviewed the assessment/plan. Chart, medications, labs, and vital signs reviewed. Dictation completed with the use of Regalister voice recognition software, prone to medical misidentifications and grammatical errors. All errors are unintentional. Although the practitioner does try to identify and correct errors, some may be present. Please do not hesitate to contact the practitioner for clarification. 10/02/2023 Chronic obstructive pulmonary disease, unspecified COPD type (ICD-10 - J44.9) Ketan is a 63-year-old male with PMH of COPD on supplemental O2, CHF, afib, that presents today to establish care as a new patient. New patient paperwork reviewed. #Congestive heart failure/A-fib: Patient presented to office with bradycardic rate read on vitals instrument. Patient denies current cardiac symptoms. EKG obtained in office reveals A-fib with controlled rate at [address] elevations or ischemic changes noted. Patient currently taking metoprolol 100 mg twice daily, bumetanide 2 mg daily, warfarin 7.5 mg x 5 days (+/- 10 mg on Mondays and Fridays depending on INR), and rosuvastatin 20 mg daily. Follows with radiophone operator Dr. Enriquez with [facility]. Most recent INR drawn 10/01/2023 -resulted 2.7 which the patient reports is consistent with baseline. Reports he is scheduled to follow-up with cardiology in about 1 month. Plan to request records for continued evaluation. Recommending no changes to current regimen at this time. #HTN: BP in office 130/72. Continue losartan 100 mg daily. #COPD: Patient on 4 L supplemental oxygen at baseline. O2 saturation on arrival to office read 77% on vitals instrument. Upon deep breathing O2 saturation increased to mid 80s. Patient currently on 2 L as he reports his mobile oxygen tank runs out quickly. At home while on 4 L states baseline O2 saturation is mid-high 80s. Patient without visible signs of respiratory distress, no perioral cyanosis. Breaths are even and nonlabored, no accessory muscle use, no retractions, lungs clear on exam. Patient currently taking Anoro inhaler daily and using albuterol as needed for shortness of breath. Follows with magneto repairer Dr. Lang with [facility]. Plan to request records for continued care. Recommending no changes to current regimen at this time. #Labs: Baseline laboratory evaluation ordered to be evaluated in 2 weeks at time of follow-up visit. #Most/Healthcare proxy: Patient provided with MOST form and healthcare proxy form. Discussed the importance of having such wishes documented them on file. Patient plans to discuss matters with his son and return to office in 2 weeks with completed paperwork. #Medical marijuana: Patient interested in medical marijuana, he understands he should not smoke this and would like to use edible marijuana products for management of discomfort. Discussed that we are not licensed medical marijuana prescribers, and that he would need to seek care by a licensed provider in order to obtain medical marijuana card. Patient demonstrates understanding. ED protocol reviewed. The patient is encouraged to seek immediate medical attention/dial 911 should he develop any shortness of breath, confusion, syncope, chest pain. All questions answered to the patient's satisfaction. Patient demonstrates understanding of diagnosis and treatments discussed. Follow-up in 2 weeks, sooner should any questions/concerns arise. Case discussed with collaborating physician Monica Stanley who has reviewed the assessment/plan. Chart, medications, labs, and vital signs reviewed. Dictation completed with the use of Regalister voice recognition software, prone to medical misidentifications and grammatical errors. All errors are unintentional. Although the practitioner does try to identify and correct errors, some may be present. Please do not hesitate to contact the practitioner for clarification. 10/16/2023 Pulmonary hypertension (ICD-10 - I27.20) Ketan is a pleasant 63-year-old male with a PMH of chronic diastolic heart failure, history of mitral valve repair, atrial fibrillation on warfarin, pulmonary hypertension, COPD the presents for follow-up visit today. #CHF/A-fib: Follows with Dr. Enriquez with [facility]. Medical records obtained and reviewed, most recent visit 06/11/2023. Most recent echo 03/2023, no clinically significant change since prior study. Most recent labs drawn on 10/05/2023 reveal INR WNL at 2.5, BNP elevated at 750. Patient with history of multiple prior cardioversions. Cardiology recommending continued use of metoprolol 100 mg twice daily, bumetanide 2 mg daily, warfarin 7.5 mg x 5 days (10 mg on Mondays/Fridays), and rosuvastatin 20 mg daily. Patient states he follows with cardiology once every 3 months and is due to return sometime in November. INR drawn monthly. Recommending no changes to current regimen at this time. #HTN: BP in office 138/72. Continue losartan 100 mg daily. #COPD: Patient on 4 L supplemental oxygen at baseline. O2 saturation stable today at 88%. Patient currently taking Anoro inhaler daily and using albuterol as needed for shortness of breath. Follows with magneto repairer Dr. Lang with [facility]. Plan to request records for continued care. Recommending no changes to current regimen at this time. #Most/Healthcare proxy: Patient provided with MOST form and healthcare proxy form at time of last visit. Patient returns with forms completed today. Patient has designated Renée Tejada, his sister as his designated healthcare proxy. He additionally has documented that he does not wish to be resuscitated should his heart stop, or be intubated/ventilated, he additionally does not wish to have any artificial nutrition or dialysis. Reviewed these forms and made appropriate copies to be scanned into the computer today. ED protocol reviewed. The patient is encouraged to seek immediate medical attention/dial 911 should he develop any shortness of breath, confusion, syncope, chest pain. All questions answered to the patient's satisfaction. Patient demonstrates understanding of diagnosis and treatments discussed. Follow-up in 2 weeks, sooner should any questions/concerns arise. Case discussed with collaborating physician Monica Stanley who has reviewed the assessment/plan. Chart, medications, labs, and vital signs reviewed. Dictation completed with the use of Regalister voice recognition software, prone to medical misidentifications and grammatical errors. All errors are unintentional. Although the practitioner does try to identify and correct errors, some may be present. Please do not hesitate to contact the practitioner for clarification. 10/16/2023 COPD without exacerbation (ICD-10 - J44.9) Ketan is a pleasant 63-year-old male with a PMH of chronic diastolic heart failure, history of mitral valve repair, atrial fibrillation on warfarin, pulmonary hypertension, COPD the presents for follow-up visit today. #CHF/A-fib: Follows with Dr. Enriquez with [facility]. Medical records obtained and reviewed, most recent visit 06/11/2023. Most recent echo 03/2023, no clinically significant change since prior study. Most recent labs drawn on 10/05/2023 reveal INR WNL at 2.5, BNP elevated at 750. Patient with history of multiple prior cardioversions. Cardiology recommending continued use of metoprolol 100 mg twice daily, bumetanide 2 mg daily, warfarin 7.5 mg x 5 days (10 mg on Mondays/Fridays), and rosuvastatin 20 mg daily. Patient states he follows with cardiology once every 3 months and is due to return sometime in November. INR drawn monthly. Recommending no changes to current regimen at this time. #HTN: BP in office 138/72. Continue losartan 100 mg daily. #COPD: Patient on 4 L supplemental oxygen at baseline. O2 saturation stable today at 88%. Patient currently taking Anoro inhaler daily and using albuterol as needed for shortness of breath. Follows with magneto repairer Dr. Lang with [facility]. Plan to request records for continued care. Recommending no changes to current regimen at this time. #Most/Healthcare proxy: Patient provided with MOST form and healthcare proxy form at time of last visit. Patient returns with forms completed today. Patient has designated Renée Tejada, his sister as his designated healthcare proxy. He additionally has documented that he does not wish to be resuscitated should his heart stop, or be intubated/ventilated, he additionally does not wish to have any artificial nutrition or dialysis. Reviewed these forms and made appropriate copies to be scanned into the computer today. ED protocol reviewed. The patient is encouraged to seek immediate medical attention/dial 911 should he develop any shortness of breath, confusion, syncope, chest pain. All questions answered to the patient's satisfaction. Patient demonstrates understanding of diagnosis and treatments discussed. Follow-up in 2 weeks, sooner should any questions/concerns arise. Case discussed with collaborating physician Monica Stanley who has reviewed the assessment/plan. Chart, medications, labs, and vital signs reviewed. Dictation completed with the use of [employer]alister voice recognition software, prone to medical misidentifications and grammatical errors. All errors are unintentional. Although the practitioner does try to identify and correct errors, some may be present. Please do not hesitate to contact the practitioner for clarification. 01/22/2024 Chronic congestive heart failure, unspecified heart failure type (ICD-10 - I50.9) Ketan is a pleasant 63-year-old male with a PMH of chronic diastolic heart failure, history of mitral valve repair, atrial fibrillation on Eliquis, pulmonary hypertension, COPD the presents for follow-up visit today. #CHF/A-fib: Follows with Dr. Enriquez with [facility]. Most recent visit 11/2023 during which warfarin was discontinued and therapy was initiated with Eliquis 5 mg twice daily. Patient was also started on Farxiga 10 mg once daily. Cardiology recommending continued use of metoprolol 100 mg twice daily, bumetanide 2 mg daily, and rosuvastatin 20 mg daily. #HTN: Patient reports cardiology recently decreased losartan from 100 to 50 mg once daily due to low blood pressures. BP in office today measured 104/68. Patient denies current symptoms of dizziness/lightheaded ness or any recent syncope/falls. #COPD: Patient on 4 L supplemental oxygen at baseline. O2 saturation stable today at 95%. Patient currently taking Anoro inhaler once daily and using albuterol as needed for shortness of breath. Follows with magneto repairer Dr. Lang with [facility]. Last seen with Dr. Lang late October/early November. Patient reports no changes to his medication regimen. #Visiting nurse services: Patient interested in setting up a visiting nurse/home health aide to assist with activities of daily living given his shortness of breath. Reports he becomes very short of breath with minimal exertion or prolonged periods of talking. As a result finds tasks such as doing laundry (requires he climbs stairs), picking up prescriptions, grocery shopping, etc. very challenging. Given the patient's medical history and current state of health, I feel he would be a good candidate for home health services. Referral sent to [facility] with goal of setting this up for the patient. All questions answered to the patient's satisfaction. Patient demonstrates understanding of diagnosis and treatments discussed. Follow-up in 3 months, sooner should any questions/concerns arise. Case discussed with collaborating physician Monica Stanley who has reviewed the assessment/plan. Chart, medications, labs, and vital signs reviewed. Dictation completed with the use of [employer] voice recognition software, prone to medical misidentifications and grammatical errors. All errors are unintentional. Although the practitioner does try to identify and correct errors, some may be present. Please do not hesitate to contact the practitioner for clarification. 01/22/2024 Atrial fibrillation, unspecified type (ICD-10 - I48.91) Ketan is a pleasant 63-year-old male with a PMH of chronic diastolic heart failure, history of mitral valve repair, atrial fibrillation on Eliquis, pulmonary hypertension, COPD the presents for follow-up visit today. #CHF/A-fib: Follows with Dr. Enriquez with [facility]. Most recent visit 11/2023 during which warfarin was discontinued and therapy was initiated with Eliquis 5 mg twice daily. Patient was also started on Farxiga 10 mg once daily. Cardiology recommending continued use of metoprolol 100 mg twice daily, bumetanide 2 mg daily, and rosuvastatin 20 mg daily. #HTN: Patient reports cardiology recently decreased losartan from 100 to 50 mg once daily due to low blood pressures. BP in office today measured 104/68. Patient denies current symptoms of dizziness/lightheaded ness or any recent syncope/falls. #COPD: Patient on 4 L supplemental oxygen at baseline. O2 saturation stable today at 95%. Patient currently taking Anoro inhaler once daily and using albuterol as needed for shortness of breath. Follows with magneto repairer Dr. Lang with [facility]. Last seen with Dr. Lang late October/early November. Patient reports no changes to his medication regimen. #Visiting nurse services: Patient interested in setting up a visiting nurse/home health aide to assist with activities of daily living given his shortness of breath. Reports he becomes very short of breath with minimal exertion or prolonged periods of talking. As a result finds tasks such as doing laundry (requires he climbs stairs), picking up prescriptions, grocery shopping, etc. very challenging. Given the patient's medical history and current state of health, I feel he would be a good candidate for home health services. Referral sent to [facility] services with goal of setting this up for the patient. All questions answered to the patient's satisfaction. Patient demonstrates understanding of diagnosis and treatments discussed. Follow-up in 3 months, sooner should any questions/concerns arise. Case discussed with collaborating physician Monica Stanley who has reviewed the assessment/plan. Chart, medications, labs, and vital signs reviewed. Dictation completed with the use of [employer]ister voice recognition software, prone to medical misidentifications and grammatical errors. All errors are unintentional. Although the practitioner does try to identify and correct errors, some may be present. Please do not hesitate to contact the practitioner for clarification. 01/22/2024 Primary hypertension (ICD-10 - I10) Ketan is a pleasant 63-year-old male with a PMH of chronic diastolic heart failure, history of mitral valve repair, atrial fibrillation on Eliquis, pulmonary hypertension, COPD the presents for follow-up visit today. #CHF/A-fib: Follows with Dr. Enriquez with [facility]. Most recent visit 11/2023 during which warfarin was discontinued and therapy was initiated with Eliquis 5 mg twice daily. Patient was also started on Farxiga 10 mg once daily. Cardiology recommending continued use of metoprolol 100 mg twice daily, bumetanide 2 mg daily, and rosuvastatin 20 mg daily. #HTN: Patient reports cardiology recently decreased losartan from 100 to 50 mg once daily due to low blood pressures. BP in office today measured 104/68. Patient denies current symptoms of dizziness/lightheaded ness or any recent syncope/falls. #COPD: Patient on 4 L supplemental oxygen at baseline. O2 saturation stable today at 95%. Patient currently taking Anoro inhaler once daily and using albuterol as needed for shortness of breath. Follows with magneto repairer Dr. Lang with [facility]. Last seen with Dr. Lang late October/early November. Patient reports no changes to his medication regimen. #Visiting nurse services: Patient interested in setting up a visiting nurse/home health aide to assist with activities of daily living given his shortness of breath. Reports he becomes very short of breath with minimal exertion or prolonged periods of talking. As a result finds tasks such as doing laundry (requires he climbs stairs), picking up prescriptions, grocery shopping, etc. very challenging. Given the patient's medical history and current state of health, I feel he would be a good candidate for home health services. Referral sent to [employer] services with goal of setting this up for the patient. All questions answered to the patient's satisfaction. Patient demonstrates understanding of diagnosis and treatments discussed. Follow-up in 3 months, sooner should any questions/concerns arise. Case discussed with collaborating physician Monica Stanley who has reviewed the assessment/plan. Chart, medications, labs, and vital signs reviewed. Dictation completed with the use of [employer]ister voice recognition software, prone to medical misidentifications and grammatical errors. All errors are unintentional. Although the practitioner does try to identify and correct errors, some may be present. Please do not hesitate to contact the practitioner for clarification. 10/16/2023 Chronic diastolic (congestive) heart failure (ICD-10 - I50.32) Ketan is a pleasant 63-year-old male with a PMH of chronic diastolic heart failure, history of mitral valve repair, atrial fibrillation on warfarin, pulmonary hypertension, COPD the presents for follow-up visit today. #CHF/A-fib: Follows with Dr. Enriquez with [facility]. Medical records obtained and reviewed, most recent visit 06/11/2023. Most recent echo 03/2023, no clinically significant change since prior study. Most recent labs drawn on 10/05/2023 reveal INR WNL at 2.5, BNP elevated at 750. Patient with history of multiple prior cardioversions. Cardiology recommending continued use of metoprolol 100 mg twice daily, bumetanide 2 mg daily, warfarin 7.5 mg x 5 days (10 mg on Mondays/Fridays), and rosuvastatin 20 mg daily. Patient states he follows with cardiology once every 3 months and is due to return sometime in November. INR drawn monthly. Recommending no changes to current regimen at this time. #HTN: BP in office 138/72. Continue losartan 100 mg daily. #COPD: Patient on 4 L supplemental oxygen at baseline. O2 saturation stable today at 88%. Patient currently taking Anoro inhaler daily and using albuterol as needed for shortness of breath. Follows with magneto repairer Dr. Lang with [facility]. Plan to request records for continued care. Recommending no changes to current regimen at this time. #Most/Healthcare proxy: Patient provided with MOST form and healthcare proxy form at time of last visit. Patient returns with forms completed today. Patient has designated Renée Tejada, his sister as his designated healthcare proxy. He additionally has documented that he does not wish to be resuscitated should his heart stop, or be intubated/ventilated, he additionally does not wish to have any artificial nutrition or dialysis. Reviewed these forms and made appropriate copies to be scanned into the computer today. ED protocol reviewed. The patient is encouraged to seek immediate medical attention/dial 911 should he develop any shortness of breath, confusion, syncope, chest pain. All questions answered to the patient's satisfaction. Patient demonstrates understanding of diagnosis and treatments discussed. Follow-up in 2 weeks, sooner should any questions/concerns arise. Case discussed with collaborating physician Monica Stanley who has reviewed the assessment/plan. Chart, medications, labs, and vital signs reviewed. Dictation completed with the use of [employer] voice recognition software, prone to medical misidentifications and grammatical errors. All errors are unintentional. Although the practitioner does try to identify and correct errors, some may be present. Please do not hesitate to contact the practitioner for clarification. 10/02/2023 Atrial fibrillation, unspecified type (ICD-10 - I48.91) Ketan is a 63-year-old male with PMH of COPD on supplemental O2, CHF, afib, that presents today to establish care as a new patient. New patient paperwork reviewed. #Congestive heart failure/A-fib: Patient presented to office with bradycardic rate read on vitals instrument. Patient denies current cardiac symptoms. EKG obtained in office reveals A-fib with controlled rate at [address] elevations or ischemic changes noted. Patient currently taking metoprolol 100 mg twice daily, bumetanide 2 mg daily, warfarin 7.5 mg x 5 days (+/- 10 mg on Mondays and Fridays depending on INR), and rosuvastatin 20 mg daily. Follows with radiophone operator Dr. Enriquez with [facility]. Most recent INR drawn 10/01/2023 -resulted 2.7 which the patient reports is consistent with baseline. Reports he is scheduled to follow-up with cardiology in about 1 month. Plan to request records for continued evaluation. Recommending no changes to current regimen at this time. #HTN: BP in office 130/72. Continue losartan 100 mg daily. #COPD: Patient on 4 L supplemental oxygen at baseline. O2 saturation on arrival to office read 77% on vitals instrument. Upon deep breathing O2 saturation increased to mid 80s. Patient currently on 2 L as he reports his mobile oxygen tank runs out quickly. At home while on 4 L states baseline O2 saturation is mid-high 80s. Patient without visible signs of respiratory distress, no perioral cyanosis. Breaths are even and nonlabored, no accessory muscle use, no retractions, lungs clear on exam. Patient currently taking Anoro inhaler daily and using albuterol as needed for shortness of breath. Follows with magneto repairer Dr. Lang with [facility]. Plan to request records for continued care. Recommending no changes to current regimen at this time. #Labs: Baseline laboratory evaluation ordered to be evaluated in 2 weeks at time of follow-up visit. #Most/Healthcare proxy: Patient provided with MOST form and healthcare proxy form. Discussed the importance of having such wishes documented them on file. Patient plans to discuss matters with his son and return to office in 2 weeks with completed paperwork. #Medical marijuana: Patient interested in medical marijuana, he understands he should not smoke this and would like to use edible marijuana products for management of discomfort. Discussed that we are not licensed medical marijuana prescribers, and that he would need to seek care by a licensed provider in order to obtain medical marijuana card. Patient demonstrates understanding. ED protocol reviewed. The patient is encouraged to seek immediate medical attention/dial 911 should he develop any shortness of breath, confusion, syncope, chest pain. All questions answered to the patient's satisfaction. Patient demonstrates understanding of diagnosis and treatments discussed. Follow-up in 2 weeks, sooner should any questions/concerns arise. Case discussed with collaborating physician Monica Stanley who has reviewed the assessment/plan. Chart, medications, labs, and vital signs reviewed. Dictation completed with the use of [employer] voice recognition software, prone to medical misidentifications and grammatical errors. All errors are unintentional. Although the practitioner does try to identify and correct errors, some may be present. Please do not hesitate to contact the practitioner for clarification. 10/02/2023 Primary hypertension (ICD-10 - I10) Ketan is a 63-year-old male with PMH of COPD on supplemental O2, CHF, afib, that presents today to establish care as a new patient. New patient paperwork reviewed. #Congestive heart failure/A-fib: Patient presented to office with bradycardic rate read on vitals instrument. Patient denies current cardiac symptoms. EKG obtained in office reveals A-fib with controlled rate at [address] elevations or ischemic changes noted. Patient currently taking metoprolol 100 mg twice daily, bumetanide 2 mg daily, warfarin 7.5 mg x 5 days (+/- 10 mg on Mondays and Fridays depending on INR), and rosuvastatin 20 mg daily. Follows with radiophone operator Dr. Enriquez with [facility]. Most recent INR drawn 10/01/2023 -resulted 2.7 which the patient reports is consistent with baseline. Reports he is scheduled to follow-up with cardiology in about 1 month. Plan to request records for continued evaluation. Recommending no changes to current regimen at this time. #HTN: BP in office 130/72. Continue losartan 100 mg daily. #COPD: Patient on 4 L supplemental oxygen at baseline. O2 saturation on arrival to office read 77% on vitals instrument. Upon deep breathing O2 saturation increased to mid 80s. Patient currently on 2 L as he reports his mobile oxygen tank runs out quickly. At home while on 4 L states baseline O2 saturation is mid-high 80s. Patient without visible signs of respiratory distress, no perioral cyanosis. Breaths are even and nonlabored, no accessory muscle use, no retractions, lungs clear on exam. Patient currently taking Anoro inhaler daily and using albuterol as needed for shortness of breath. Follows with magneto repairer Dr. Lang with [facility]. Plan to request records for continued care. Recommending no changes to current regimen at this time. #Labs: Baseline laboratory evaluation ordered to be evaluated in 2 weeks at time of follow-up visit. #Most/Healthcare proxy: Patient provided with MOST form and healthcare proxy form. Discussed the importance of having such wishes documented them on file. Patient plans to discuss matters with his son and return to office in 2 weeks with completed paperwork. #Medical marijuana: Patient interested in medical marijuana, he understands he should not smoke this and would like to use edible marijuana products for management of discomfort. Discussed that we are not licensed medical marijuana prescribers, and that he would need to seek care by a licensed provider in order to obtain medical marijuana card. Patient demonstrates understanding. ED protocol reviewed. The patient is encouraged to seek immediate medical attention/dial 911 should he develop any shortness of breath, confusion, syncope, chest pain. All questions answered to the patient's satisfaction. Patient demonstrates understanding of diagnosis and treatments discussed. Follow-up in 2 weeks, sooner should any questions/concerns arise. Case discussed with collaborating physician Monica Stanley who has reviewed the assessment/plan. Chart, medications, labs, and vital signs reviewed. Dictation completed with the use of [employer] voice recognition software, prone to medical misidentifications and grammatical errors. All errors are unintentional. Although the practitioner does try to identify and correct errors, some may be present. Please do not hesitate to contact the practitioner for clarification. 10/16/2023 Chronic atrial fibrillation (ICD-10 - I48.20) Ketan is a pleasant 63-year-old male with a PMH of chronic diastolic heart failure, history of mitral valve repair, atrial fibrillation on warfarin, pulmonary hypertension, COPD the presents for follow-up visit today. #CHF/A-fib: Follows with Dr. Enriquez with [facility]. Medical records obtained and reviewed, most recent visit 06/11/2023. Most recent echo 03/2023, no clinically significant change since prior study. Most recent labs drawn on 10/05/2023 reveal INR WNL at 2.5, BNP elevated at 750. Patient with history of multiple prior cardioversions. Cardiology recommending continued use of metoprolol 100 mg twice daily, bumetanide 2 mg daily, warfarin 7.5 mg x 5 days (10 mg on Mondays/Fridays), and rosuvastatin 20 mg daily. Patient states he follows with cardiology once every 3 months and is due to return sometime in November. INR drawn monthly. Recommending no changes to current regimen at this time. #HTN: BP in office 138/72. Continue losartan 100 mg daily. #COPD: Patient on 4 L supplemental oxygen at baseline. O2 saturation stable today at 88%. Patient currently taking Anoro inhaler daily and using albuterol as needed for shortness of breath. Follows with magneto repairer Dr. Lang with [facility]. Plan to request records for continued care. Recommending no changes to current regimen at this time. #Most/Healthcare proxy: Patient provided with MOST form and healthcare proxy form at time of last visit. Patient returns with forms completed today. Patient has designated Renée Tejada, his sister as his designated healthcare proxy. He additionally has documented that he does not wish to be resuscitated should his heart stop, or be intubated/ventilated, he additionally does not wish to have any artificial nutrition or dialysis. Reviewed these forms and made appropriate copies to be scanned into the computer today. ED protocol reviewed. The patient is encouraged to seek immediate medical attention/dial 911 should he develop any shortness of breath, confusion, syncope, chest pain. All questions answered to the patient's satisfaction. Patient demonstrates understanding of diagnosis and treatments discussed. Follow-up in 2 weeks, sooner should any questions/concerns arise. Case discussed with collaborating physician Monica Stanley who has reviewed the assessment/plan. Chart, medications, labs, and vital signs reviewed. Dictation completed with the use of [employer] voice recognition software, prone to medical misidentifications and grammatical errors. All errors are unintentional. Although the practitioner does try to identify and correct errors, some may be present. Please do not hesitate to contact the practitioner for clarification. 01/22/2024 Chronic obstructive pulmonary disease, unspecified COPD type (ICD-10 - J44.9) Ketan is a pleasant 63-year-old male with a PMH of chronic diastolic heart failure, history of mitral valve repair, atrial fibrillation on Eliquis, pulmonary hypertension, COPD the presents for follow-up visit today. #CHF/A-fib: Follows with Dr. Enriquez with [facility]. Most recent visit 11/2023 during which warfarin was discontinued and therapy was initiated with Eliquis 5 mg twice daily. Patient was also started on Farxiga 10 mg once daily. Cardiology recommending continued use of metoprolol 100 mg twice daily, bumetanide 2 mg daily, and rosuvastatin 20 mg daily. #HTN: Patient reports cardiology recently decreased losartan from 100 to 50 mg once daily due to low blood pressures. BP in office today measured 104/68. Patient denies current symptoms of dizziness/lightheaded ness or any recent syncope/falls. #COPD: Patient on 4 L supplemental oxygen at baseline. O2 saturation stable today at 95%. Patient currently taking Anoro inhaler once daily and using albuterol as needed for shortness of breath. Follows with magneto repairer Dr. Lang with [facility]. Last seen with Dr. Lang late October/early November. Patient reports no changes to his medication regimen. #Visiting nurse services: Patient interested in setting up a visiting nurse/home health aide to assist with activities of daily living given his shortness of breath. Reports he becomes very short of breath with minimal exertion or prolonged periods of talking. As a result finds tasks such as doing laundry (requires he climbs stairs), picking up prescriptions, grocery shopping, etc. very challenging. Given the patient's medical history and current state of health, I feel he would be a good candidate for home health services. Referral sent to [facility] [employer] [facility] with goal of setting this up for the patient. All questions answered to the patient's satisfaction. Patient demonstrates understanding of diagnosis and treatments discussed. Follow-up in 3 months, sooner should any questions/concerns arise. Case discussed with collaborating physician Monica Stanley who has reviewed the assessment/plan. Chart, medications, labs, and vital signs reviewed. Dictation completed with the use of [employer] voice recognition software, prone to medical misidentifications and grammatical errors. All errors are unintentional. Although the practitioner does try to identify and correct errors, some may be present. Please do not hesitate to contact the practitioner for clarification. 01/22/2024 Pulmonary hypertension (ICD-10 - I27.20) Ketan is a pleasant 63-year-old male with a PMH of chronic diastolic heart failure, history of mitral valve repair, atrial fibrillation on Eliquis, pulmonary hypertension, COPD the presents for follow-up visit today. #CHF/A-fib: Follows with Dr. Enriquez with [facility]. Most recent visit 11/2023 during which warfarin was discontinued and therapy was initiated with Eliquis 5 mg twice daily. Patient was also started on Farxiga 10 mg once daily. Cardiology recommending continued use of metoprolol 100 mg twice daily, bumetanide 2 mg daily, and rosuvastatin 20 mg daily. #HTN: Patient reports cardiology recently decreased losartan from 100 to 50 mg once daily due to low blood pressures. BP in office today measured 104/68. Patient denies current symptoms of dizziness/lightheaded ness or any recent syncope/falls. #COPD: Patient on 4 L supplemental oxygen at baseline. O2 saturation stable today at 95%. Patient currently taking Anoro inhaler once daily and using albuterol as needed for shortness of breath. Follows with magneto repairer Dr. Lang with [facility]. Last seen with Dr. Lang late October/early November. Patient reports no changes to his medication regimen. #Visiting nurse services: Patient interested in setting up a visiting nurse/home health aide to assist with activities of daily living given his shortness of breath. Reports he becomes very short of breath with minimal exertion or prolonged periods of talking. As a result finds tasks such as doing laundry (requires he climbs stairs), picking up prescriptions, grocery shopping, etc. very challenging. Given the patient's medical history and current state of health, I feel he would be a good candidate for home health services. [facility] with goal of setting this up for the patient. All questions answered to the patient's satisfaction. Patient demonstrates understanding of diagnosis and treatments discussed. Follow-up in 3 months, sooner should any questions/concerns arise. Case discussed with collaborating physician Monica Stanley who has reviewed the assessment/plan. Chart, medications, labs, and vital signs reviewed. Dictation completed with the use of [employer] voice recognition software, prone to medical misidentifications and grammatical errors. All errors are unintentional. Although the practitioner does try to identify and correct errors, some may be present. Please do not hesitate to contact the practitioner for clarification. 10/16/2023 Primary hypertension (ICD-10 - I10) Ketan is a pleasant 63-year-old male with a PMH of chronic diastolic heart failure, history of mitral valve repair, atrial fibrillation on warfarin, pulmonary hypertension, COPD the presents for follow-up visit today. #CHF/A-fib: Follows with Dr. Enriquez with [facility]. Medical records obtained and reviewed, most recent visit 06/11/2023. Most recent echo 03/2023, no clinically significant change since prior study. Most recent labs drawn on 10/05/2023 reveal INR WNL at 2.5, BNP elevated at 750. Patient with history of multiple prior cardioversions. Cardiology recommending continued use of metoprolol 100 mg twice daily, bumetanide 2 mg daily, warfarin 7.5 mg x 5 days (10 mg on Mondays/Fridays), and rosuvastatin 20 mg daily. Patient states he follows with cardiology once every 3 months and is due to return sometime in November. INR drawn monthly. Recommending no changes to current regimen at this time. #HTN: BP in office 138/72. Continue losartan 100 mg daily. #COPD: Patient on 4 L supplemental oxygen at baseline. O2 saturation stable today at 88%. Patient currently taking Anoro inhaler daily and using albuterol as needed for shortness of breath. Follows with magneto repairer Dr. Lang with [facility]. Plan to request records for continued care. Recommending no changes to current regimen at this time. #Most/Healthcare proxy: Patient provided with MOST form and healthcare proxy form at time of last visit. Patient returns with forms completed today. Patient has designated Renée Tejada, his sister as his designated healthcare proxy. He additionally has documented that he does not wish to be resuscitated should his heart stop, or be intubated/ventilated, he additionally does not wish to have any artificial nutrition or dialysis. Reviewed these forms and made appropriate copies to be scanned into the computer today. ED protocol reviewed. The patient is encouraged to seek immediate medical attention/dial 911 should he develop any shortness of breath, confusion, syncope, chest pain. All questions answered to the patient's satisfaction. Patient demonstrates understanding of diagnosis and treatments discussed. Follow-up in 2 weeks, sooner should any questions/concerns arise. Case discussed with collaborating physician Monica Stanley who has reviewed the assessment/plan. Chart, medications, labs, and vital signs reviewed. Dictation completed with the use of [employer] voice recognition software, prone to medical misidentifications and grammatical errors. All errors are unintentional. Although the practitioner does try to identify and correct errors, some may be present. Please do not hesitate to contact the practitioner for clarification. 10/16/2023 Advance care planning (ICD-10 - Z71.89) Ketan is a pleasant 63-year-old male with a PMH of chronic diastolic heart failure, history of mitral valve repair, atrial fibrillation on warfarin, pulmonary hypertension, COPD the presents for follow-up visit today. #CHF/A-fib: Follows with Dr. Enriquez with [facility]. Medical records obtained and reviewed, most recent visit 06/11/2023. Most recent echo 03/2023, no clinically significant change since prior study. Most recent labs drawn on 10/05/2023 reveal INR WNL at 2.5, BNP elevated at 750. Patient with history of multiple prior cardioversions. Cardiology recommending continued use of metoprolol 100 mg twice daily, bumetanide 2 mg daily, warfarin 7.5 mg x 5 days (10 mg on Mondays/Fridays), and rosuvastatin 20 mg daily. Patient states he follows with cardiology once every 3 months and is due to return sometime in November. INR drawn monthly. Recommending no changes to current regimen at this time. #HTN: BP in office 138/72. Continue losartan 100 mg daily. #COPD: Patient on 4 L supplemental oxygen at baseline. O2 saturation stable today at 88%. Patient currently taking Anoro inhaler daily and using albuterol as needed for shortness of breath. Follows with magneto repairer Dr. Lang with [facility]. Plan to request records for continued care. Recommending no changes to current regimen at this time. #Most/Healthcare proxy: Patient provided with MOST form and healthcare proxy form at time of last visit. Patient returns with forms completed today. Patient has designated Renée Tejada, his sister as his designated healthcare proxy. He additionally has documented that he does not wish to be resuscitated should his heart stop, or be intubated/ventilated, he additionally does not wish to have any artificial nutrition or dialysis. Reviewed these forms and made appropriate copies to be scanned into the computer today. ED protocol reviewed. The patient is encouraged to seek immediate medical attention/dial 911 should he develop any shortness of breath, confusion, syncope, chest pain. All questions answered to the patient's satisfaction. Patient demonstrates understanding of diagnosis and treatments discussed. Follow-up in 2 weeks, sooner should any questions/concerns arise. Case discussed with collaborating physician Monica Stanley who has reviewed the assessment/plan. Chart, medications, labs, and vital signs reviewed. Dictation completed with the use of [employer]alister voice recognition software, prone to medical misidentifications and grammatical errors. All errors are unintentional. Although the practitioner does try to identify and correct errors, some may be present. Please do not hesitate to contact the practitioner for clarification. 01/22/2024 Need for home health care (ICD-10 - Z74.2) Ketan is a pleasant 63-year-old male with a PMH of chronic diastolic heart failure, history of mitral valve repair, atrial fibrillation on Eliquis, pulmonary hypertension, COPD the presents for follow-up visit today. #CHF/A-fib: Follows with Dr. Enriquez with [facility]. Most recent visit 11/2023 during which warfarin was discontinued and therapy was initiated with Eliquis 5 mg twice daily. Patient was also started on Farxiga 10 mg once daily. Cardiology recommending continued use of metoprolol 100 mg twice daily, bumetanide 2 mg daily, and rosuvastatin 20 mg daily. #HTN: Patient reports cardiology recently decreased losartan from 100 to 50 mg once daily due to low blood pressures. BP in office today measured 104/68. Patient denies current symptoms of dizziness/lightheaded ness or any recent syncope/falls. #COPD: Patient on 4 L supplemental oxygen at baseline. O2 saturation stable today at 95%. Patient currently taking Anoro inhaler once daily and using albuterol as needed for shortness of breath. Follows with magneto repairer Dr. Lang with [facility]. Last seen with Dr. Lang late October/early November. Patient reports no changes to his medication regimen. #Visiting nurse services: Patient interested in setting up a visiting nurse/home health aide to assist with activities of daily living given his shortness of breath. Reports he becomes very short of breath with minimal exertion or prolonged periods of talking. As a result finds tasks such as doing laundry (requires he climbs stairs), picking up prescriptions, grocery shopping, etc. very challenging. Given the patient's medical history and current state of health, I feel he would be a good candidate for home health services. Referral sent to [facility] with goal of setting this up for the patient. All questions answered to the patient's satisfaction. Patient demonstrates understanding of diagnosis and treatments discussed. Follow-up in 3 months, sooner should any questions/concerns arise. Case discussed with collaborating physician Monica Stanley who has reviewed the assessment/plan. Chart, medications, labs, and vital signs reviewed. Dictation completed with the use of [employer]alister voice recognition software, prone to medical misidentifications and grammatical errors. All errors are unintentional. Although the practitioner does try to identify and correct errors, some may be present. Please do not hesitate to contact the practitioner for clarification. PLAN OF TREATMENT Pending Test Test Name Order Date EKG 10/02/2023 CBC (COMPLETE BLOOD COUNT) WITH DIFF COMPREHENSIVE METABOLIC PANEL 10/02/2023 HEMOGLOBIN A1C 10/02/2023 LIPID PANEL 10/02/2023 TSH 10/02/2023 BNP (B -Type Natriuretic Peptide) 2023 PT/INR 10/02/2023 Next Appt Details Provider Name:ALEX Arango, 04/30/2024 10:00:00 AM, [address] [facility], [facility] [address], [place], [address], Insurance Providers Payer Name Payer Address Payer Phone Subscriber Number Group Number Insured Name Patient Relationship to Insured Coverage Start Date Coverage End Date [employer] Medicare Advantage [address] [place] [address] [id number] Ketan Cho Self - patient is the insured MEDICAL (GENERAL) HISTORY Medical History History ICD Code COPD without exacerbation J44.9 Arthritis M19.90 Chronic diastolic (congestive) heart blanca lure I50.32 Pulmonary hypertension I27.20 Paroxysmal atrial fibrillation I48.0 Surgical History Surgery Date(Month/Year) mitral valve repair 2010 umbilical hernia repair 2013 L cornea transplant Hospitalization History Reason Date(Month/Year) RSV/CAP 03/2023 pericardial effusion
--- OUTSIDE RECORDS SUMMARY | 2024-02-14 15:04 | XMS_ITS ---
Author Organization [facility] Address [address] [place] [address] Care Team Providers Care Tallow Refiner Name Role Phone ALEX RAJAN Unavailable [phone] REASON FOR REFERRAL Reason [facility] Diagnosis 1 Shortness of breath (R06.02) Referral Organization [address] Referring Provider First Name ALEX Referring Provider Last Name MOHINI Referring Provider Speciality Preventive Medicine Referred Provider Specialty Other Medica l Care General Notes Kaylee Mata 024 04:30:23 PM > Referral sent due to cardiac/pulmonary hx Referral Priority Routine REASON FOR VISIT Referral for home health Encounters Encounter Location Date Provider Diagnosis [address] [facility] [address] [place] [address] 01/22/2024 ALEX RAJAN PLAN OF TREATMENT Referrals Referral Date Details [facility] Next Appt Details Provider Name:ALEX Arango, 04/30/2024 10:00:00 AM, [address], [address], [place], [address], Progress Notes * Ketan RICHARDDOB:1960 ( 63 yo M)Acc No.[id number]:01/22/2024 Patient:??Ketan RICHARD :1960?Age:63 Y?Sex:Jerson blake Address:[address] [place] [id number] Subjective: * Chief Complaints: * ?Referral for home heal th * Medical History:?? * Surgical History:?? * Hospitalization/Major Diagno stic Procedure:?? * Medications:?? Objective: Assessment: Plan: * Treatment: * Procedure Codes:?? * true * Date:?? Consultation Request Notes Referral Date Referring Provider Referred Provider Not colin 01/23/2024 ALEX RAJAN , Internation [facility]
--- OUTSIDE RECORDS SUMMARY | 2024-02-14 15:04 | XMS_ITS ---
Author Organization [facility] Address [address] [place] [address] Care Team Providers Care [facility]chool Principal Name Role Phone ALEX RAJAN Unavailable [phone] ALLERGIES Allergen (clinical drug ingredient) Drug/Non Drug Allergy documented on EMR Reaction Allergy Type Onset Date Status ciprofloxacin Cipro shortness of breath Drug Allergy Active vancomycin Vancocin rash Drug Allergy Active REASON FOR VISIT Pt here to be seen for a f/u appt. No complaints MEDICATIONS Medication SIG (Take, Route, Frequency, Duration) Notes Start Date End Date Status Fish Oil Active Bumetanide 2 MG 1 tablet Orally Once a day Active Eliquis 5 MG as directed Orally Active Albuterol Active Anoro Ellipta 62.5-25 MCG/ACT 1 puff Inhalation Once a day Active Losartan Potassium 50 MG 1 tablet Orally Once a day Active Metoprolol Succinate 100 MG 1 capsule Orally Twice a day Active Farxiga 10 MG 1 tablet Orally Once a day Active Rosuvastatin Calcium 20 MG 1 tablet Orally Once a day for 90 days 10/30/2023 Active Warfarin Sodium 7.5 MG 1 tablet Orally X5 DAYS Not-Taking Calcium Active B Complex Active Aspirin 81 Active PROBLEMS Problem Type ICD Code Onset Dates Problem Status W/U Status Risk SNOMED Code Notes Problem Need for home health care (Z74.2) Active confirmed 777615772 VITAL SIGNS Heart Rate 74 /min 01/22/2024 Blood pressure systolic 104 mm Hg 01/22/20 24 Blood pressure diastolic 68 mm Hg 024 Weight 312 lbs 01/22/2024 BMI 43.51 kg/m2 01/22/2024 Height 71 in 01/22/2024 Oximetry 95 % 01/22/2024 Encounters Encounter Location Date Provider Diagnosis [facility] [id number] [address] 01/22/2024 ALEX RAJAN Chronic congestive h eart failure, unspecified heart failure type I50.9 ; Atrial fibrillation, unspecified type I48.91 ; Primary hypertension I10 ; Chronic obstructive pulmonary disease, unspecified COPD type J44.9 ; Pulmonary hypertension I27.20 and Need for home health care Z74.2 ASSESSMENTS Encounter Date Diagnosis Assessment Notes Treatment Notes Treatment Clinical Notes Section Notes 01/22/2024 Chronic congestive heart failure, unspecified heart failure type (ICD-10 - I50.9) Ketan is a pleasant 63-year-old male with a PMH of chronic diastolic heart failure, history of mitral valve repair, atrial fibrillation on Eliquis, pulmonary hypertension, COPD the presents for follow-up visit today. #CHF/A-fib: Follows with Dr. Enriquez with [facility]. Most recent visit 11/2023 during [...] measured 104/68. Patient denies current symptoms of dizziness/lighth eadedness or any recent syncope/falls. #COPD: Patient on 4 L supplemental oxygen at baseline. O2 saturation stable today at 95%. Patient currently taking Anoro inhaler once daily and using albuterol as needed for shortness of breath. Follows with environmental services manager Dr. Lang with [facility]. Last seen with Dr. Lang [...] for home health services. Referral sent to [facility] with goal of setting this up for the patient. All questions answered to the patient's satisfaction. Patient demonstrates understanding of diagnosis and treatments discussed. Follow-up in 3 months, sooner should any questions/concer ns arise. Case discussed with collaborating physician Monica Stanley who has reviewed the assessment/plan. Chart, medications, labs, and vital signs reviewed. Dictation completed with the use of Intralign voice recognition software, prone to medical misidentificatio ns and grammatical errors. All errors are unintentional. [...] today. #CHF/A-fib: Follows with Dr. Enriquez with [facility]. Most recent visit 11/2023 during [...] measured 104/68. Patient denies current symptoms of dizziness/lighth eadedness or any recent syncope/falls. #COPD: Patient on 4 L supplemental oxygen at baseline. O2 saturation stable today at 95%. Patient currently taking Anoro inhaler once daily and using albuterol as needed for shortness of breath. Follows with environmental services manager Dr. Lang with [facility]. Last seen with Dr. Lang [...] home health services. Referral sent to [facility] with goal of setting this up for the patient. All questions answered to the patient's satisfaction. Patient demonstrates understanding of diagnosis and treatments discussed. Follow-up in 3 months, sooner should any questions/concer ns arise. Case discussed with collaborating physician Monica Stanley who has reviewed the assessment/plan. Chart, medications, labs, and vital signs reviewed. Dictation completed with the use of Intralign voice recognition software, prone to medical misidentificatio ns and grammatical errors. All errors are unintentional. [...] today. #CHF/A-fib: Follows with Dr. Enriquez with [facility]. Most recent visit 11/2023 during [...] measured 104/68. Patient denies current symptoms of dizziness/lighth eadedness or any recent syncope/falls. #COPD: Patient on 4 L supplemental oxygen at baseline. O2 saturation stable today at 95%. Patient currently taking Anoro inhaler once daily and using albuterol as needed for shortness of breath. Follows with environmental services manager Dr. Lang with [facility]. Last seen with Dr. Lang [...] for home health services. Referral sent to [facility] with goal of setting this up for the patient. All questions answered to the patient's satisfaction. Patient demonstrates understanding of diagnosis and treatments discussed. Follow-up in 3 months, sooner should any questions/concer ns arise. Case discussed with collaborating physician Monica Stanley who has reviewed the assessment/plan. Chart, medications, labs, and vital signs reviewed. Dictation completed with the use of Intralign voice recognition software, prone to medical misidentificatio ns and grammatical errors. All errors are unintentional. [...] today. #CHF/A-fib: Follows with Dr. Enriquez with [facility]. Most recent visit 11/2023 during [...] measured 104/68. Patient denies current symptoms of dizziness/lighth eadedness or any recent syncope/falls. #COPD: Patient on 4 L supplemental oxygen at baseline. O2 saturation stable today at 95%. Patient currently taking Anoro inhaler once daily and using albuterol as needed for shortness of breath. Follows with environmental services manager Dr. Lang with [facility]. Last seen with Dr. Lang [...] for home health services. Referral sent to [facility] with goal of setting this up for the patient. All questions answered to the patient's satisfaction. Patient demonstrates understanding of diagnosis and treatments discussed. Follow-up in 3 months, sooner should any questions/concer ns arise. Case discussed with collaborating physician Monica Stanley who has reviewed the assessment/plan. Chart, medications, labs, and vital signs reviewed. Dictation completed with the use of Intr[employer] voice recognition software, prone to medical misidentificatio ns and grammatical errors. All errors are unintentional. [...] today. #CHF/A-fib: Follows with Dr. Enriquez with [facility]. Most recent visit 11/2023 during [...] measured 104/68. Patient denies current symptoms of dizziness/lighth eadedness or any recent syncope/falls. #COPD: Patient on 4 L supplemental oxygen at baseline. O2 saturation stable today at 95%. Patient currently taking Anoro inhaler once daily and using albuterol as needed for shortness of breath. Follows with environmental services manager Dr. Lang with [facility]. Last seen with Dr. Lang [...] for home health services. Referral sent to [facility] with goal of setting this up for the patient. All questions answered to the patient's satisfaction. Patient demonstrates understanding of diagnosis and treatments discussed. Follow-up in 3 months, sooner should any questions/concer ns arise. Case discussed with collaborating physician Monica Stanley who has reviewed the assessment/plan. Chart, medications, labs, and vital signs reviewed. Dictation completed with the use of Intralign voice recognition software, prone to medical misidentificatio ns and grammatical errors. All errors are unintentional. [...] today. #CHF/A-fib: Follows with Dr. Enriquez with [facility]. Most recent visit 11/2023 during [...] measured 104/68. Patient denies current symptoms of dizziness/lighth eadedness or any recent syncope/falls. #COPD: Patient on 4 L supplemental oxygen at baseline. O2 saturation stable today at 95%. Patient currently taking Anoro inhaler once daily and using albuterol as needed for shortness of breath. Follows with environmental services manager Dr. Lang with [facility]. Last seen with Dr. Lang [...] for home health services. Referral sent to [facility] with goal of setting this up for the patient. All questions answered to the patient's satisfaction. Patient demonstrates understanding of diagnosis and treatments discussed. Follow-up in 3 months, sooner should any questions/concer ns arise. Case discussed with collaborating physician Monica Stanley who has reviewed the assessment/plan. Chart, medications, labs, and vital signs reviewed. Dictation completed with the use of Intr[employer] voice recognition software, prone to medical misidentificatio ns and grammatical errors. All errors are unintentional. Although the practitioner does try to identify and correct errors, some may be present. Please do not hesitate to contact the practitioner for clarification. PLAN OF TREATMENT Next Appt Details Provider Name:ALEX Arango, 04/30/2024 10:00:00 AM, [address] [place] [address], [id number], Progress Notes * Ketan RICHARDDOB:1960 ( 63 yo M)Acc No.[id number]:01/22/2024 Progress Notes Patient:??JOSE MANUEL Ketan Provider:??ALEX RAJAN PA-C :1960?Age:63 Y?Sex:Ma le Date:01/22/2024 Address:[address] [place] [address] [id number] Subjective: * Chief Complaints: * ?1. Pt here to be seen for a f/u appt. No complaints. * HPI: ?Constitutional:? Ketan is a 63-year-old male with PMH of COPD on supplemental O2, diastolic CHF, afib, that presents today for followup visit. Since last visit patient reports he is feeling well. Denies worsening symptoms of SOB, continues to use 4 L supplemental O2 at baseline and 2 L while out at appointments. Seen with cardiology last month who discontinued warfarin and started Eliquis 5 mg twice daily in its place. Patient also started on Farxiga 10 mg once daily. He was also instructed to decrease his losartan from 100 mg to 50 mg once daily due to low BPs and symptoms of dizziness. Denies current symptoms of dizziness. Denies any history of syncope/falls. Denies worsening exertional symptoms, chest pain, heart palpitations, or new/worsening lower extremity swelling. ?Also saw pulmonology who made no new recommendations. Patient interested in getting set up with [facility] services to assist with laundry, grocery shopping, picking up prescriptions, etc. Patient becomes short of breath very easily and finds these tasks challenging. States he lives in a first-floor apartment does not have to climb stairs to go to his bedroom, does however after the go down to the basement to do laundry. * ROS:?All Other Systems:?Review of Systems (ROS)??All others negative except those mentioned in HPI.? * Medical History:??COPD witho ut exacerbation, Arthritis, Chronic diastolic (congestive) heart failure, Pulmonary hypertension, Paroxysmal atrial fibrillation. * Surgical History:??mitral va lve repair 2010, umbilical hernia repair 2013, L cornea transplant . * Hospitalization/Major Diagno stic Procedure:??pericardial effusion , RSV/CAP 03/2023. * Family History:??Father: dec eased, hx of mechanical valves, breathing issues.??Mother: , passed from brain tumor.??Siblings: Bone cancer.??1 brother(s) , 4 sister(s) . 1 son(s) , 1 daughter(s) - healthy. .?? * Social History:?Quit smoking 2004 ???Drinks 1 to 3 times a week. * Medications:??Taking Farxiga 10 MG Tablet 1 tablet Orally Once a day , Taking Eliquis 5 MG Tablet as directed Orally , Taking Albuterol , Taking Anoro Ellipta 62.5-25 MCG/ACT Aerosol Powder Breath Activated 1 puff Inhalation Once a day , Taking Fish Oil , Taking Bumetanide 2 MG Tablet 1 tablet Orally Once a day , Taking Calcium , Taking B Complex , Taking Aspirin 81 , Taking Losartan Potassium 50 MG Tablet 1 tablet Orally Once a day , Taking Metoprolol Succinate 100 MG Capsule ER 24 Hour Sprinkle 1 capsule Orally Twice a day , Taking Rosuvastatin Calcium 20 MG Tablet 1 tablet Orally Once a day , Not-Taking Warfarin Sodium 7.5 MG Tablet 1 tablet Orally X5 DAYS +/- 10mg Sun and Sunday depending on INR, Medication List reviewed and reconciled with the patient * Allergies:??Cipro: shortness of breath, Vancocin: rash. Objective: * Vitals:??HR:74/min, BP:104/6 8mm Hg, Wt:312lbs, BMI:43.51Index, Ht: 71 in, Oxygen sat %:95%. * Physical Examination:?General: Age appropriate, 63-year-old male in no acute distress, speaking in full sentences without visible respiratory distress. Well groomed, well developed. Alert, interactive. Patient becomes SOB easily with long lengths of talking. ?Skin: Warm, dry and intact. No lesions/rashes/erythema. ?HEENT: Normocephalic/atraumatic. EOMI/vision intact. ?Neck/Thyroid: Supple, no lymphadenopathy. Full ROM. ?CV: RRR, no murmurs/rubs or gallops on auscultation. . ?Lungs: Clear to auscultation bilaterally, no wheezes, rales or rhonchi. Equal chest rise and fall bilaterally. No perioral cyanosis. No visible accessory muscle use. ?Lower Extremities: Bilateral lower extremities without edema or rubor. Equal tone bilaterally. ?Neuro: CN II-XII grossly intact. Steady gait and ambulation assisted with cane observed. ?Psych: Stable mood and affect. Assessment: * Assessment: 1.??Chronic congestive heart failure, unspecified heart failure type - I50.9 (Primary)??2.??Atrial fibrillation, unspecified type - I48.91??3.??Primary hypertension - I10??4.??Chronic obstructive pulmonary disease, unspecified COPD type - J44.9??5.??Pulmonary hypertension - I27.20??6.??Need for home health care - Z74.2?? Ketan is a pleasant 63-yea r-old male with a PMH of chronic diastolic heart failure, history of mitral valve repair, atrial fibrillation on Eliquis, pulmonary hypertension, COPD the presents for follow-up visit today. #CHF/A-fib: Follows with Dr. Enriquez with [facility]. Most recent visit 11/2023 during [...] measured 104/68. Patient denies current symptoms of dizziness/lightheadedness or any recent syncope/falls. #COPD: Patient on 4 L supplemental oxygen at baseline. O2 saturation stable today at 95%. Patient currently taking Anoro inhaler once daily and using albuterol as needed for shortness of breath. Follows with environmental services manager Dr. Lang with [facility]. Last seen with Dr. Lang [...] home health services. Referral sent to [facility] with goal of setting this up for the patient. All questions answered to the patient's satisfaction. Patient demonstrates understanding of diagnosis and treatments discussed. Follow-up in 3 months, sooner should any questions/concerns arise. Case discussed with collaborating physician Monica Stanley who has reviewed the assessment/plan. Chart, medications, labs, and vital signs reviewed. Dictation completed with the use of Intr[employer] voice recognition software, prone to medical misidentifications and grammatical errors. All errors are unintentional. Although the practitioner does try to identify and correct errors, some may be present. Please do not hesitate to contact the practitioner for clarification. Plan: * Treatment: * Images: Billing Information: * Visit Code:?? 32047 Office Visit, Est Pt., Level 4. * Procedure Codes:?? Care Plan Details* * Sign off status: Completed true * Provider:??ALEX RAJAN PA-C Date:?? 01/22/2024 History and Physical Notes * HPI (History of Present Illness) Category Sub-Category Detail Notes Category Not es Constitutional Ketan is a 63-year-old male with PMH of COPD on supplemental O2, diastolic CHF, afib, that presents today for followup visit. Since last visit patient reports he is feeling well. Denies worsening symptoms of SOB, continues to use 4 L supplemental O2 at baseline and 2 L while out at appointments. Seen with cardiology last month who discontinued warfarin and started Eliquis 5 mg twice daily in its place. Patient also started on Farxiga 10 mg once daily. He was also instructed to decrease his losartan from 100 mg to 50 mg once daily due to low BPs and symptoms of dizziness. Denies current symptoms of dizziness. Denies any history of syncope/falls. Denies worsening exertional symptoms, chest pain, heart palpitations, or new/worsening lower extremity swelling. Also saw pulmonology who made no new recommendations. Patient interested in getting set up with [facility] services to assist with laundry, grocery shopping, picking up prescriptions, etc. Patient becomes short of breath very easily and finds these tasks challenging. States he lives in a first-floor apartment does not have to climb stairs to go to his bedroom, does however after the go down to the basement to do laundry. Physical Examination Category Sub-Category Detail Notes Section Note s General: Age appropriate, 63-year-old male in no acute distress, speaking in full sentences without visible respiratory distress. Well groomed, well developed. Alert, interactive. Patient becomes SOB easily with long lengths of talking. Skin: Warm, dry and intact. No lesions/rashes/erythema. HEENT: Normocephalic/atraumatic. EOMI/vision intact. Neck/Thyroid: Supple, no lymphadenopathy. Full ROM. CV: RRR, no murmurs/rubs or gallops on auscultation. . Lungs: Clear to auscultation bilaterally, no wheezes, rales or rhonchi. Equal chest rise and fall bilaterally. No perioral cyanosis. No visible accessory muscle use. Lower Extremities: Bilateral lower extremities without edema or rubor. Equal tone bilaterally. Neuro: CN II-XII grossly intact. Steady gait and ambulation assisted with cane observed. Psych: Stable mood and affect.
[2024-02-14 15:12] LABS: Anion Gap 13 (12-20); Blood Urea Nitrogen 27 mg/dL (9-16); Calcium 9.8 mg/dL (8.4-10.2); Carbon Dioxide 30 mmol/L (22-29); Chloride 100 mmol/L (96-108); Estimated Glomerular Filt Rate > 60; Iron 100 mcg/dL (45-160); Magnesium 2.2 mg/dL (1.6-2.6); Parathyroid Hormone Intact 202.6 pg/mL (8.7-77.1); Percent Iron Saturation 31 % (15-50); Phosphorus 3.7 mg/dL (2.7-4.5); Potassium 4.4 mmol/L (3.3-5.1); Sodium 139 mmol/L (135-145); Total Iron Binding Capacity 319 mcg/dL (228-428); Unsaturated Iron Binding 219 ug/dL; Uric Acid 8.4 mg/dL (3.4-7.0)
[2024-02-14 15:23] LABS: Creatinine Urine 23.46 mg/dL; Microalbum/Creatinine Ratio Ur 1125.3 ug/mg cr (<30); Protein/Creatinine Ratio, Ur 1.45 (<0.2); Total Protein Urine Random 34 mg/dL (<12)
[2024-02-14 15:30] LABS: Ferritin 217 ng/mL (20-250); Vitamin D 25-OH Total 33.2 ng/mL (>30)
== END 2024-02-14 13:54 | disposition home or self-care (01) ==
LOC: HO.LAB 13:53
PROVIDERS: Visit Provider Internal Medicine
DX: N18.2 Chronic kidney disease, stage 2 (mild) (principal); R80.8 Other proteinuria
CPT/HCPCS: 36415; 80051; 81001; 82043; 82306; 82310; 82565; 82570; 82728; 83036; 83540; 83735; 83970; 84100; 84156; 84520; 84550; 85025

== ENCOUNTER 2024-04-21 09:46 | Outpatient (AMB) | payer MEDICARE, SELFPAY ==
[2022-08-10 10:10] VITALS: BMI 42.4
[2024-04-21 09:51] VITALS: BP 84/58; PULSE 57; O2SAT 92; BMI 42.9
--- NOTE | 2024-04-21 09:51 | MHC.OFFVIS ---
Vital Signs 04/21/24 09:51 Height 6 ft 2 in Weight 334 lb 0.005 oz BMI 42.9 BP 84/58 L Blood Pressure Location Rt brachial Position Sitting Pulse 57 Pulse Source Pulse Oximeter Pulse Oximetry (%) 92 Oxygen Delivery Method Nasal Cannula Oxygen Flow Rate 4 Intake Visit Reasons: COPD Allergies ciprofloxacin [From CIPRO] Allergy (Intermediate, Verified 04/21/24 10:51) DIFFICULTY BREATHING vancomycin [VANCOMYCIN] Allergy (Intermediate, Verified 04/21/24 10:51) RASH, rash over whole body HPI Comments Details: The patient is a 64-year-old woman known history of lymphoma in addition to interstitial lung disease. She has had significant shortness of breath and cough. More recently her IgG levels were checked and found to be in the 400s. The patient has had recurrent lower respiratory infections. She is going to be started on IgG therapy by her oncologist most likely. In the meantime we looked at her previous CT scans demonstrating areas of ground-glass opacities and interstitial lung disease. She did undergo bronchoscopy back in 2018 demonstrating chronic inflammatory patchy interstitial infiltrates. It was also noted that she had lymphocytic inflammatory cell infiltrate. Based on the fact that she response to prednisone, evidence of ground-glass opacities on her CT scan and also based on the fact that the biopsy showed chronic inflammatory changes these findings are not consistent with idiopathic pulmonary fibrosis. 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 She does need to some degree of immuno modulation to minimize inflammation and scarring. However, we should address the immunodeficiency prior to doing so. In the meantime the patient has been complaining of worsening cough and shortness of breath. We did review her CT scan of the chest that she had recently demonstrating interval worsening of the interstitial lung disease in some areas of ground-glass opacities now in the upper lung zones which she was free of disease. The patient understands that the best way of knowing was going on will be with a lung biopsy. However, the last time she went to a surgical consultation she decided to hold off after the discussion with the surgeon. Therefore diff point will do additional laboratory data to see if we can identify the process without having her to do a biopsy. At which point the patient would benefit from a immunomodulator to try to minimize to use prednisone as she has not been able to tolerated. Patient also having significant stress because she is going through a divorce. She is drinking significant amount of beer. We talked about how this also can affect the respiratory status. 06/14/2022 the patient is here for pulmonary follow-up visit. Overall he is doing well. The patient has been using the BiPAP every night. The BiPAP therapy has been affecting beneficial. The last download data demonstrated that his AHI was 4.5. Therefore, will go ahead increase the pressures from 18-19 cm and the expiratory pressure from 13-14 cm. He will continue using 3 L at nighttime. He needs to get supplies from his [employer] company, [employer] will submit a script for that. In addition to the C is using the diuretics with good effect. He continues use the respiratory medications. Unfortunately the Anoro was too expensive. I did print out a medication assistance for from the pharmaceutical company and will resend the Anoro again to the pharmacy. 10/26/2022 the patient is here for a pulmonary follow-up visit. The patient has been feeling dizzy lately. Just not himself. Denies any vertigo. He is not sure what could be. Although he noticed that in the morning when he was checking his blood pressure the heart rate was only in the 40s. He had him areas in the 50s and 60s at times and is AFib currently rate controlled. Is wondering if the low heart rate could be resulting in the dizziness. He did have blood work yesterday. Sugars seems to be okay. His kidney function since to be okay and electrolytes as well. His Bumex was increased further we did talk about auto toxicity but at this point he denies any decreased hearing and or tinnitus. The patient has been using the oxygen at 4 L with activity with good effect. Also use using the BiPAP at nighttime. He did have a recent echocardiogram done demonstrating that his a RV function is decrease in his mitral valve appears to be stenotic about a moderate to severe based on the report. I did reach out to the Cardiology to see if he can be seen on little bit sooner otherwise patient will continue with current therapy. He is going to continue to monitor the heart rate to make sure that it has not decreased further. He has been on metoprolol for a long time. Also recently he was starting to get more short of breath. His brain nitrate peptide was elevated and his Bumex was increased. This week he does feel better from a breathing standpoint. 02/21/2023 the patient is here for a pulmonary follow-up visit. The patient is doing about the same. Still complaining of dyspnea on exertion. He did follow-up with cardiology. Echocardiogram demonstrated a moderate degree of mitral stenosis. The patient also has evidence of pulmonary hypertension. A lot likely have to do with the valvular disease although he does have some COPD as well. I do believe that treating the mitral valve will help his overall respiratory status. Although, understand that with his underlying respiratory issues it would be higher in the risk profile. I will reach out to his gravel screener to see if there is any alternative rolls the question of a right heart catheterization and also a referral to a tertiary center where he can be provided other potential therapies. I do believe that intervening on the valve may be in his best interest. In the meantime he is okay to go back to pulmonary rehabilitation. He continue using the noninvasive ventilator at nighttime. He will continue using his oxygen as prescribed. 06/06/2023 the patient is here for a pulmonary follow-up visit. The patient overall has been doing well. The additional oxygen has been helpful. The patient still using the diuretic therapy. He will be following up with Cardiology soon. The patient does have some degree of pulmonary hypertension but also has mitral stenosis so therefore would be concerned about the use of vasodilators and causing worsening heart failure. He stopped going to pulmonary rehabilitation. I did encourage him to go back but he is concerned that he gets very short of breath with minimal activity. I did recommend he can look into online program such as the pulmonary while on this program online. He continues use the BiPAP. At this point will go ahead and recheck a blood gas. If his CO2 is elevated will go ahead and consider switching over to a AVAP, noninvasive ventilator. Patient will follow-up in about 4 months. His last chest x-ray was back in the fall 2022 which appeared to be without any acute disease possibly some vascular congestion. No additional imaging studies warranted right now. If he has any issues prior to that he will call for an earlier assessment. 11/13/2023 the patient is here for a pulmonary follow-up visit. Overall he is doing okay. He is working on weight loss. She already lost another 14 lb in the last few months. He has been proactive with his weight loss. He also continues to take his medications including his diuretics. He continues uses oxygen with good effect. He still requires between 4-8 L of oxygen per minute. Sometimes he gets a dry nose and sometimes epistaxis. He is going to start using the humidification and also can get some saline gel or water-based will forget for his nose to minimize irritation. In the meantime the patient needs to follow-up with cardiology. He does have what appears to be significant mitral stenosis that is likely worsening his pulmonary hypertension and is respiratory failure. He is not a surgical candidate because of his significant pulmonary disease. However, wondering if he can have a catheter based approach to help him with his significant issue. In the meantime he does use the AVAP at nighttime. The AVAP therapy has been affecting beneficial. He does use it for more than 4 hours a night. He did have a blood gas in his CO2 is reassuring. He does find the machine helpful. The patient follow-up in 6 months with us. He will see cardiology soon and hopefully they can potentially refer him to a tertiary center where he may have other potential alternative therapies for his mitral stenosis. 04/21/2024 the patient is here for a pulmonary follow-up visit. He is here with his son. Been having hard time with worsening shortness of breath. Moderate to severe. He has been having to increase his oxygen for 4-6 L to maintain a pulse ox and his breathlessness under control. He has been using his noninvasive ventilator at nighttime and also during the day as needed. He does get some relief. Unfortunately he forgot to take his Lasix for the last week because he did not have it in his pill container. Once he realized that he started taking yesterday. Was getting significant amount of fluid and edema. He has been noticing increasing dizzy spells and he has been very scared about passing out. He did have some medication changes during his as visit with his specialists. Today come in he was noted to be hypotensive with systolic in the 80s and also heart rate in the 40s. Pulse ox 80% on 4 L. the patient does not appear well does have some crackles at the bases with diminished breath sounds. Based on his hypotension and his volume overload status along with the dizzy spells will go ahead and transfer him to the ER for further care. Likely needs diuresis and hopefully by doing so improving his starting her and improving his pump function. He will need to have a repeat echo since he has not had 1 in a year and further imaging of the chest. [facility] Medical History Mitral stenosis Pulmonary hypertension SOB (shortness of breath) Cor pulmonale Dyspnea Oxygen dependent Chronic hypoxemic respiratory failure Sleep apnea COPD (chronic obstructive pulmonary disease) Hyperlipidemia Atrial fibrillation Hypertension, essential Current use of anticoagulant therapy Surgical History History of carpal tunnel surgery History of colonoscopy History of thumb surgery History of mitral valve repair History of umbilical hernia History of tonsillectomy History of vasectomy Family History Father No problems noted. Mother No problems noted. Brother No problems noted. Sister Mental health disorder Sister No problems noted. Sister No problems noted. Sister No problems noted. Son No problems noted. Daughter No problems noted. Social History Household Members: None Housing: Apartment Do you presently have visiting nurse or other home services: Yes (home care twice a week) Alcohol intake: former Patient Tobacco Use Status: Former Tobacco user Tobacco use type: Cigarette Years Smoked: 25 e-Cigarette/Vaping Use: Never Used Second Hand Smoke Exposure: Yes (cigar smoke) Substance Use Type: Marijuana Advance Directives Date on File: 07/12/20 service: No Current occupational status: disabled Cognitive needs: No Hearing needs: No Vision needs: Yes Review of Systems Const Denies chills, Reports fatigue, Denies fever(s), Reports weight gain and Reports weight loss ENT Reports dizziness, Denies epistaxis and Denies nasal discharge Card Denies chest pain, Reports leg edema, Reports dyspnea and Reports dyspnea on exertion Resp Denies chest congestion, Denies cough, Denies hemoptysis, Reports dyspnea and Reports dyspnea on exertion GI Denies diarrhea and Denies nausea Musc Reports myalgias Skin/Breast Denies rash Neuro Reports no additional complaints and Reports dizziness Psych Reports no additional complaints Endo Reports no additional complaints and Reports fatigue Physical Exam Vital Signs: Last Vital Signs Pulse 57 04/21/24 09:51 BP 84/58 L 04/21/24 09:51 Pulse Ox 92 04/21/24 09:51 Oxygen Delivery Method Nasal Cannula 04/21/24 09:51 Oxygen Flow Rate 4 04/21/24 09:51 BMI result Body Mass Index 42.9 Const General: alert HEENT General nose exam: Abnormal external nose present and Nasal discharge present Neck Neck: Yes normal visual inspection, Yes full ROM and Yes no lymphadenopathy Chest Chest palpation & inspection: normal inspection of the chest Resp Effort & Inspection: normal respiratory effort Auscultation: crackles and diminished lung sounds Cardio Rate: regular rate Rhythm: abnormal rhythm Heart sounds: S1 normal heart sound present, S2 normal heart sound present and Murmur heart sound present GI Palpation (GI): Soft to palpation and nontender Auscultation: normal bowel sounds Skin General skin exam: rashes and/or lesions noted Extrem General: Yes clubbing and Yes edema Assessment & Plan Assessment & Plan (1) Status post mitral valve repair: Code(s): Z98.890 - Other specified postprocedural states Category: Surgical Plan: In the most recent echocardiogram, mean gradient across the mitral valve 4 mm Hg. Gradients compared over the last several years, but there is no significant change. Overall, do not believe that there is any significant valvular dysfunction. Unlikely that this is playing any role in his shortness of breath. Even otherwise, he is a high-risk candidate for any redo surgery. (2) Persistent atrial fibrillation: Code(s): I48.19 - Other persistent atrial fibrillation Category: Medical Plan: Per patient, multiple prior cardioversions. Continue metoprolol for rate control. Continue warfarin. (3) Chronic diastolic (congestive) heart failure: Code(s): I50.32 - Chronic diastolic (congestive) heart failure Category: Medical Plan: Continue diuretics. Add Farxiga. Shortness of breath itself is likely multifactorial and from some combination of obesity, pulmonary issues, congestive heart failure, atrial fibrillation. (4) Pulmonary hypertension: Code(s): I27.20 - Pulmonary hypertension, unspecified Category: Medical Plan: Likely from some combination of cardiac as well as pulmonary etiology. Weight loss if he can do but may not be feasible. Diuretics. (5) Arterial hypotension: Code(s): I95.9 - Hypotension, unspecified Category: Medical Qualifiers: Hypotension type: hypotension due to drug Qualified Code(s): I95.2 - Hypotension due to drugs Plan: Amlodipine has been stopped. He can cut back on the Losartan to 1/2 tablet-50 mg daily. If he feels better with that, then we can just change the dose to losartan 50 mg daily. (6) Dyspnea: Code(s): R06.00 - Dyspnea, unspecified Category: Medical Qualifiers: Dyspnea type: dyspnea on exertion Qualified Code(s): R06.00 - Dyspnea, unspecified (7) COPD (chronic obstructive pulmonary disease): Code(s): J44.9 - Chronic obstructive pulmonary disease, unspecified Category: Medical Qualifiers: COPD type: emphysema Emphysema type: panlobular Qualified Code(s): J43.1 - Panlobular emphysema (8) Mitral stenosis: Code(s): I05.0 - Rheumatic mitral stenosis Category: Medical Qualifiers: Cardiac valve disease etiology: etiology unspecified Qualified Code(s): I05.0 - Rheumatic mitral stenosis (9) SOB (shortness of breath): Code(s): R06.02 - Shortness of breath Category: Medical Plan Will transfer to Ed to assess hypotention, dizziness and worsening hypoxia. Likely acute on chronic CHF Continue NIV therapy, JL AHI, oxygen 4L Continue oxygen therapy 4 L at rest, 8 L with activity diuresis with BUmex will f/u with cardiology continue Anoro daily F/U 2-3 months Coding Level of Care Code New Pt Level 5 (42264) Diagnoses Status post mitral valve repair Z98.890 Persistent atrial fibrillation I48.19 Chronic diastolic (congestive) heart failure I50.32 Pulmonary hypertension I27.20 Hypotension due to drugs I95.2 Hypotension type: hypotension due to drug Dyspnea on exertion R06.00 Dyspnea type: dyspnea on exertion Panlobular emphysema J43.1 COPD type: emphysema Emphysema type: panlobular Mitral valve stenosis, unspecified etiology I05.0 Cardiac valve disease etiology: etiology unspecified SOB (shortness of breath) R06.02 Time Spent (min) 40
--- OUTSIDE RECORDS SUMMARY | 2024-04-21 10:43 | XMS_ITS | Clinical Summary ---
[facility] Address [address] [place] [address] Care Team Providers Care Shore Worker Name Role Phone Unavailable Primary Care Provider Unavailabl e Social History Tobacco Use Types Packs/Day Years Used Date Smoking Tobacco: Never Assessed Sex and Gender Information Value Date Recorded Sex Assigned at Not on file Gender Identity Not on file Sexual Orientation Not on file Plan of Treatment Not on file
--- OUTSIDE RECORDS SUMMARY | 2024-04-21 10:43 | XMS_ITS ---
Author Organization [facility] Address [address] [place] [address] Care Team Providers Care Talent Acquisition Lead Name Role Phone ALEX RAJAN Unavailable [phone] REASON FOR REFERRAL Reason [facility] Diagnosis 1 Shortness of breath (R06.02) Referral [...] [place] [address] [address] [place] [address] 01/22/2024 ALEX RAJAN PLAN OF TREATMENT Referrals Referral Date Details [facility] Next Appt Details Provider Name:ALEX Arango, 04/30/2024 10:00:00 AM, [address], [address], [place], [address], Progress Notes * Ketan RICHARDDOB:1960 ( 63 yo M)Acc No.[id number]:01/22/2024 Patient:??Ketan RICHARD :1960?Age:63 Y?Sex:Jerson blake Address:[address] [place], [place] [address] [address] Subjective: * Chief Complaints: * ?Referral for home heal th * Medical History:?? * Surgical History:?? * Hospitalization/Major Diagno stic Procedure:?? * Medications:?? Objective: Assessment: Plan: * Treatment: * Procedure Codes:?? * true * Date:?? Consultation Request Notes Referral Date Referring Provider Referred Provider Not colin 01/23/2024 ALEX RAJAN , [facility]
--- OUTSIDE RECORDS SUMMARY | 2024-04-21 10:44 | XMS_ITS ---
Author Organization [facility] Address [address] [place] [address] Care Team Providers Care Consulting Services Associate Name Role Phone ALEX RAJAN Unavailable [phone] REASON FOR VISIT ins referral - pulmo Encounters Encounter Location Date Provider Diagnosis [facility] [place] [address] [facility] [address] [address] [place] [address] 04/16/2024 ALEX RAJAN PLAN OF TREATMENT Next Appt Details Provider Name:ALEX Arango, 04/30/2024 10:00:00 AM, [address] [facility], [address], [place], [address], Progress Notes * Ketna RICHARDDOB:1960 ( 64 yo M)Acc No.[id number]:04/16/2024 Patient:??JOSE MANUELKetan :1960?Age:64 Y?Sex:Jerson hayden Address:[address] [place] [id number] * * Date:??
--- OUTSIDE RECORDS SUMMARY | 2024-04-21 10:44 | XMS_ITS ---
Author Organization [facility] Address [address] [place] [address] Care Team Providers Care Inspector Wire Products Name Role Phone ALEX RAJAN Unavailable [phone] ALLERGIES Allergen (clinical drug ingredient) Drug/Non Drug [...] for home health care (Z74.2) Active confirmed [id number] VITAL SIGNS Blood pressure systolic 104 mm Hg 01/22/20 24 Blood pressure diastolic 68 mm Hg 024 Heart Rate 74 /min 01/22/2024 Height 71 in 01/22/2024 Weight 312 lbs 01/22/2024 BMI 43.51 kg/m2 01/22/2024 Oximetry 95 % 01/22/2024 Encounters Encounter Location Date Provider Diagnosis [facility] [address] [address] 01/22/2024 ALEX RAJAN Chronic congestive h eart [...] today. #CHF/A-fib: Follows with Dr. Enriquez with [facility]. Most recent visit 11/2023 during which warfarin [...] needed for shortness of breath. Follows with sales correspondence clerk Dr. Lang with [facility]. Last seen with Dr. Lang late October/early [...] for home health services. Referral sent to [facility] services with goal of setting this up for the patient. All questions answered to the patient's satisfaction. Patient demonstrates understanding of diagnosis and treatments discussed. Follow-up in 3 months, sooner should any questions/concer ns arise. Case discussed with collaborating physician Monica Stanley who has reviewed the assessment/plan. Chart, medications, labs, and vital signs reviewed. Dictation completed with the use of Fracture voice recognition software, prone to medical misidentificatio [...] today. #CHF/A-fib: Follows with Dr. Enriquez with [facility]. Most recent visit 11/2023 during which warfarin [...] needed for shortness of breath. Follows with sales correspondence clerk Dr. Lang with [facility]. Last seen with Dr. Lang late October/early [...] home health services. Referral sent to [facility] with goal of setting this up for the patient. All questions answered to the patient's satisfaction. Patient demonstrates understanding of diagnosis and treatments discussed. Follow-up in 3 months, sooner should any questions/concer ns arise. Case discussed with collaborating physician Monica Stanley who has reviewed the assessment/plan. Chart, medications, labs, and vital signs reviewed. Dictation completed with the use of Fracture voice recognition software, prone to medical misidentificatio [...] today. #CHF/A-fib: Follows with Dr. Enriquez with [facility]. Most recent visit 11/2023 during which warfarin [...] needed for shortness of breath. Follows with sales correspondence clerk Dr. Lang with [facility]. Last seen with Dr. Lang late October/early [...] for home health services. Referral sent to [facility] services with goal of setting this up for the patient. All questions answered to the patient's satisfaction. Patient demonstrates understanding of diagnosis and treatments discussed. Follow-up in 3 months, sooner should any questions/concer ns arise. Case discussed with collaborating physician Monica Stanley who has reviewed the assessment/plan. Chart, medications, labs, and vital signs reviewed. Dictation completed with the use of Fracture voice recognition software, prone to medical misidentificatio [...] today. #CHF/A-fib: Follows with Dr. Enriquez with [facility]. Most recent visit 11/2023 during which warfarin [...] needed for shortness of breath. Follows with sales correspondence clerk Dr. Lang with [facility]. Last seen with Dr. Lang late October/early [...] for home health services. Referral sent to [facility] with goal of setting this up for the patient. All questions answered to the patient's satisfaction. Patient demonstrates understanding of diagnosis and treatments discussed. Follow-up in 3 months, sooner should any questions/concer ns arise. Case discussed with collaborating physician Monica Stanley who has reviewed the assessment/plan. Chart, medications, labs, and vital signs reviewed. Dictation completed with the use of Fracture voice recognition software, prone to medical misidentificatio [...] today. #CHF/A-fib: Follows with Dr. Enriquez with [facility]. Most recent visit 11/2023 during which warfarin [...] needed for shortness of breath. Follows with sales correspondence clerk Dr. Lang with [facility]. Last seen with Dr. Lang late October/early [...] for home health services. Referral sent to [facility] services with goal of setting this up for the patient. All questions answered to the patient's satisfaction. Patient demonstrates understanding of diagnosis and treatments discussed. Follow-up in 3 months, sooner should any questions/concer ns arise. Case discussed with collaborating physician Monica Stanley who has reviewed the assessment/plan. Chart, medications, labs, and vital signs reviewed. Dictation completed with the use of Fracture voice recognition software, prone to medical misidentificatio [...] today. #CHF/A-fib: Follows with Dr. Enriquez with [facility]. Most recent visit 11/2023 during which warfarin [...] needed for shortness of breath. Follows with sales correspondence clerk Dr. Lang with [facility]. Last seen with Dr. Lang late October/early [...] for home health services. Referral sent to [facility] with goal of setting this up for the patient. All questions answered to the patient's satisfaction. Patient demonstrates understanding of diagnosis and treatments discussed. Follow-up in 3 months, sooner should any questions/concer ns arise. Case discussed with collaborating physician Monica Stanley who has reviewed the assessment/plan. Chart, medications, labs, and vital signs reviewed. Dictation completed with the use of Fracture voice recognition software, prone to medical misidentificatio ns and grammatical errors. All errors are unintentional. Although the practitioner does try to identify and correct errors, some may be present. Please do not hesitate to contact the practitioner for clarification. PLAN OF TREATMENT Next Appt Details Provider Name:ALEX Arango, 04/30/2024 10:00:00 AM, [address] [place] [address], [id number], Progress Notes * Ketan RICHARDDOB:1960 ( 63 yo M)Acc No.[id number]:01/22/2024 Progress Notes Patient:??JOSE MANUEL Ketan Provider:??ALEX RAJAN PA-C :1960?Age:63 Y?Sex:Ma le Date:01/22/2024 Address:[address] [place] [address] [id number] Subjective: * Chief Complaints: * ?1. Pt [...] today. #CHF/A-fib: Follows with Dr. Enriquez with [facility]. Most recent visit 11/2023 during which warfarin [...] needed for shortness of breath. Follows with sales correspondence clerk Dr. Lang with [facility]. Last seen with Dr. Lang late October/early [...] home health services. Referral sent to [facility] with goal of setting this up for the patient. All questions answered to the patient's satisfaction. Patient demonstrates understanding of diagnosis and treatments discussed. Follow-up in 3 months, sooner should any questions/concerns arise. Case discussed with collaborating physician Monica Stanley who has reviewed the assessment/plan. Chart, medications, labs, and vital signs reviewed. Dictation completed with the use of Fracture voice recognition software, prone to medical misidentifications and grammatical errors. All errors are unintentional. Although the practitioner does try to identify and correct errors, some may be present. Please do not hesitate to contact the practitioner for clarification. Plan: * Treatment: * Images: Billing Information: * Visit Code:?? 89490 Office Visit, Est Pt., Level 4. * [...]
--- OUTSIDE RECORDS SUMMARY | 2024-04-21 10:44 | XMS_ITS | Patient Health Record ---
Author Organization [facility] Address [address] [place] [address] Care Team Providers Care Hiv Cts Specialist Name Role Phone ALEX RAJAN Unavailable [phone] ALLERGIES Allergen (clinical drug ingredient) Drug/Non Drug [...] 0 RR_SystolicBP 0 REASON FOR REFERRAL Reason [facility]/ Dr. Lang Diagnosis 1 Chronic obstructive asthma (J44.9) Referral Organization [address] Referring Provider First Name ALEX Referring Provider Last Name [place] Referring Provider Speciality Preventive Medicine Referred Provider Specialty Pulmonology General Notes Kaylee Mata 024 04:21:20 PM > Referral faxed over to Dr. Niels Lang Referral Priority Routine Reason [employer] Diagnosis 1 Shortness of breath (R06.02) Referral Organization [address] Referring Provider First Name ALEX Referring Provider Last Name [place] Referring Provider Speciality Preventive Medicine Referred Provider [...] Problem Coagulation defect, unspecified (D68.9) Active confirmed 46322847 Problem Paroxysmal atrial fibrillation (I48.0) Active confirmed Paroxysmal atrial fibrillation (675006674) Problem Chronic diastolic (congestive) heart failure (I50.32) Active confirmed Chronic diastolic heart failure (902287724) Problem Heart failure, unspecified (I50.9) Active confirmed Heart failure (85922735) Problem Shortness of breath (R06.02) Active confirmed Shortness of breath (622808522) Problem Chronic congestive heart failure, unspecified heart failure type (I50.9) Active confirmed 70709445 Problem Atrial fibrillation, unspecified type (I48.91) Active confirmed 27663493 Problem Arthritis (M19.90) Active confirmed Arthritis (2916329) Problem Chronic obstructive pulmonary disease, unspecified COPD type (J44.9) Active confirmed 49802960 Problem Pulmonary hypertension (I27.20) Active confirmed Pulmonary hypertension (84525339) Problem Advance care planning (Z71.89) Active confirmed 858255574 Problem Primary hypertension (I10) Active confirmed 67545688 Problem Chronic atrial fibrillation (I48.20) Active confirmed 078304285 Problem Chronic obstructive asthma (J44.9) Active confirmed Chronic obstructive asthma co-occurrent with acute exacerbation of asthma (disorder) (707607508819311 02) Problem COPD without exacerbation (J44.9) Active confirmed Chronic obstructive lung disease (86841722) Problem Medical orders for life-sustaining treatment (MOLST) form in chart (Z78.9) Active confirmed 632754824 Problem Need for home health care (Z74.2) Active confirmed 138463844 VITAL SIGNS Heart Rate 74 /min 01/22/2024 Respiratory Rate 24 /min 10/16/2023 Blood pressure diastolic 68 mm Hg 01/22/2024 Oximetry 95 % 01/22/2024 Height 71 in 01/22/2024 Blood pressure systolic 104 mm Hg 01/22/2024 Weight 312 lbs 01/22/2024 BMI 43.51 kg/m2 01/22/2024 Encounters Encounter Location Date Provider Diagnosis [address] [place] [address] 10/02/2023 [facility] Chronic congestive heart failure, unspecified heart failure type I50.9 ; Chronic obstructive pulmonary disease, unspecified COPD type J44.9 ; Atrial fibrillation, unspecified type I48.91 and Primary hypertension I10 [address] [place] [address] 10/16/2023 [facility] COPD without exacerbation J44.9 ; Pulmonary hypertension I27.20 ; Chronic diastolic (congestive) heart failure I50.32 ; Chronic atrial fibrillation I48.20 ; Primary hypertension I10 and Advance care planning Z71.89 [address] [place] [address] 01/22/2024 [facility] Chronic congestive heart failure, unspecified heart failure type I50.9 ; Atrial fibrillation, unspecified type I48.91 ; Primary hypertension I10 ; Chronic obstructive pulmonary disease, unspecified COPD type J44.9 ; Pulmonary hypertension I27.20 and Need for home health care Z74.[address] [place] [address] 04/16/2024 [facility] [address] [place] [address] 10/17/2023 [facility] [address] [place] [address] 10/23/2023 [facility] [address] [place] [address] 10/24/2023 [facility] [address] [place] [address] 10/30/2023 [facility] [address] [place] [address] 11/06/[address] [place] [address] 11/08/2023 ALEX [place] [address] [place] [address] 11/09/2023 ALEX [place] [address] [place] [address] 11/29/[address] [address] [place] [address] 12/21/2023 ALEX [place] [address] [place] [address] 12/26/2023 ALEX [place] [address] [place] [address] 01/01/[address] [place] [address] 01/22/2024 [facility] Encounter Date Diagnosis Assessment Notes Treatment [...] and rosuvastatin 20 mg daily. Follows with special police Dr. Enriquez with [facility]. Most recent INR drawn 10/01/2023 -resulted 2.7 [...] needed for shortness of breath. Follows with exit booth agent Dr. Lang with [facility]. Plan to request records for continued care. [...] reviewed. Dictation completed with the use of [employer] voice recognition software, prone to medical misidentifications [...] and rosuvastatin 20 mg daily. Follows with special police Dr. Enriquez with [facility]. Most recent INR drawn 10/01/2023 -resulted 2.7 [...] needed for shortness of breath. Follows with exit booth agent Dr. Lang with [facility]. Plan to request records for continued care. [...] reviewed. Dictation completed with the use of [employer] voice recognition software, prone to medical misidentifications [...] today. #CHF/A-fib: Follows with Dr. Enriquez with [facility]. Medical records obtained and reviewed, most recent [...] needed for shortness of breath. Follows with exit booth agent Dr. Lang with [facility]. Plan to request records for continued care. [...] reviewed. Dictation completed with the use of [employer] voice recognition software, prone to medical misidentifications [...] today. #CHF/A-fib: Follows with Dr. Enriquez with [facility]. Medical records obtained and reviewed, most recent [...] needed for shortness of breath. Follows with exit booth agent Dr. Lang with [facility]. Plan to request records for continued care. [...] reviewed. Dictation completed with the use of [employer] voice recognition software, prone to medical misidentifications [...] today. #CHF/A-fib: Follows with Dr. Enriquez with [facility]. Most recent visit 11/2023 during which [...] needed for shortness of breath. Follows with exit booth agent Dr. Lang with [facility]. Last seen with Dr. Lang late [...] for home health services. Referral sent to [facility] with goal of setting this up for the patient. All questions answered to the patient's satisfaction. Patient demonstrates understanding of diagnosis and treatments discussed. Follow-up in 3 months, sooner should any questions/concerns arise. Case discussed with collaborating physician Monica Stanley who has reviewed the assessment/plan. Chart, medications, labs, and vital signs reviewed. Dictation completed with the use of [employer] voice recognition software, prone to medical misidentifications [...] today. #CHF/A-fib: Follows with Dr. Enriquez with [facility]. Most recent visit 11/2023 during which [...] needed for shortness of breath. Follows with exit booth agent Dr. Lang with [facility]. Last seen with Dr. Lang late [...] for home health services. Referral sent to [facility] with goal of setting this up for the patient. All questions answered to the patient's satisfaction. Patient demonstrates understanding of diagnosis and treatments discussed. Follow-up in 3 months, sooner should any questions/concerns arise. Case discussed with collaborating physician Monica Stanley who has reviewed the assessment/plan. Chart, medications, labs, and vital signs reviewed. Dictation completed with the use of [employer] voice recognition software, prone to medical misidentifications [...] today. #CHF/A-fib: Follows with Dr. Enriquez with [facility]. Most recent visit 11/2023 during which [...] needed for shortness of breath. Follows with exit booth agent Dr. Lang with [facility]. Last seen with Dr. Lang late [...] reviewed. Dictation completed with the use of [employer] voice recognition software, prone to medical misidentifications [...] today. #CHF/A-fib: Follows with Dr. Enriquez with [facility]. Medical records obtained and reviewed, most recent [...] needed for shortness of breath. Follows with exit booth agent Dr. Lang with [facility]. Plan to request records for continued care. [...] reviewed. Dictation completed with the use of [employer] voice recognition software, prone to medical misidentifications [...] and rosuvastatin 20 mg daily. Follows with special police Dr. Enriquez with [facility]. Most recent INR drawn 10/01/2023 -resulted 2.7 [...] needed for shortness of breath. Follows with exit booth agent Dr. Lang with [facility]. Plan to request records for continued care. [...] reviewed. Dictation completed with the use of [employer] voice recognition software, prone to medical misidentifications [...] and rosuvastatin 20 mg daily. Follows with special police Dr. Enriquez with [facility]. Most recent INR drawn 10/01/2023 -resulted 2.7 [...] needed for shortness of breath. Follows with exit booth agent Dr. Lang with [facility]. Plan to request records for continued care. [...] reviewed. Dictation completed with the use of [employer] voice recognition software, prone to medical misidentifications [...] today. #CHF/A-fib: Follows with Dr. Enriquez with [facility]. Medical records obtained and reviewed, most recent [...] needed for shortness of breath. Follows with exit booth agent Dr. Lang with [facility]. Plan to request records for continued care. [...] reviewed. Dictation completed with the use of [employer] voice recognition software, prone to medical misidentifications [...] today. #CHF/A-fib: Follows with Dr. Enriquez with [facility]. Most recent visit 11/2023 during which [...] needed for shortness of breath. Follows with exit booth agent Dr. Lang with [facility]. Last seen with Dr. Lang late [...] reviewed. Dictation completed with the use of [employer] voice recognition software, prone to medical misidentifications [...] today. #CHF/A-fib: Follows with Dr. Enriquez with [facility]. Most recent visit 11/2023 during which [...] needed for shortness of breath. Follows with exit booth agent Dr. Lang with [facility]. Last seen with Dr. Lang late [...] for home health services. Referral sent to [facility] with goal of setting this up for the patient. All questions answered to the patient's satisfaction. Patient demonstrates understanding of diagnosis and treatments discussed. Follow-up in 3 months, sooner should any questions/concerns arise. Case discussed with collaborating physician Monica Stanley who has reviewed the assessment/plan. Chart, medications, labs, and vital signs reviewed. Dictation completed with the use of [employer] voice recognition software, prone to medical misidentifications [...] today. #CHF/A-fib: Follows with Dr. Enriquez with [facility]. Medical records obtained and reviewed, most recent [...] needed for shortness of breath. Follows with exit booth agent Dr. Lang with [facility]. Plan to request records for continued care. [...] reviewed. Dictation completed with the use of [employer] voice recognition software, prone to medical misidentifications [...] today. #CHF/A-fib: Follows with Dr. Enriquez with [facility]. Medical records obtained and reviewed, most recent [...] needed for shortness of breath. Follows with exit booth agent Dr. Lang with [facility]. Plan to request records for continued care. Recommending no changes to current regimen at this time. #Most/Healthcare proxy: Patient provided with MOST form and healthcare proxy form at time of last visit. Patient returns with forms completed today. Patient has designated Renée Tejaad, his sister as his designated healthcare proxy. [...] reviewed. Dictation completed with the use of [employer] voice recognition software, prone to medical misidentifications [...] today. #CHF/A-fib: Follows with Dr. Enriquez with [facility]. Most recent visit 11/2023 during which [...] needed for shortness of breath. Follows with exit booth agent Dr. Lang with [facility]. Last seen with Dr. Lang late [...] for home health services. Referral sent to [employer] with goal of setting this up for the patient. All questions answered to the patient's satisfaction. Patient demonstrates understanding of diagnosis and treatments discussed. Follow-up in 3 months, sooner should any questions/concerns arise. Case discussed with collaborating physician Monica Stanley who has reviewed the assessment/plan. Chart, medications, labs, and vital signs reviewed. Dictation completed with the use of [employer] voice recognition software, prone to medical misidentifications [...] PT/INR 10/02/2023 Next Appt Details Provider Name:ALEX ERICK Arango, 04/30/2024 10:00:00 AM, [address] [facility], [facility] [address], [place], [address], Insurance Providers Payer Name Payer Address Payer Phone Subscriber Number Group Number Insured Name Patient Relationship to Insured Coverage Start Date Coverage End Date [employer] Medicare Advantage [address] [place] [address] [phone] [id number] Ketan Cho Self - patient is the insured MEDICAL (GENERAL) HISTORY Medical History History ICD Code COPD without exacerbation J44.9 Arthritis M19.90 Chronic diastolic (congestive) heart blanca chilango I50.32 Pulmonary hypertension I27.20 Paroxysmal atrial fibrillation I48.0 Surgical History Surgery Date(Month/Year) mitral valve repair 2010 umbilical hernia repair 2013 L cornea transplant Hospitalization History Reason Date(Month/Year) RSV/CAP 03/2023 pericardial effusion
--- OUTSIDE RECORDS SUMMARY | 2024-04-21 10:44 | XMS_ITS | Clinical Summary ---
Author Organization [facility] Address [address] [place] [address] Phone Care Team Providers Care Bottle Machine Operator Name Role Phone Trent Stanley MD Primary Care Provider [phone] Allergies Active Allergy Reactions Criticality Noted Date Comments Ciprofloxacin Other (see comments) 05/13/2020 Vancomycin Other (see comments) 05/13/2020 Medications aspirin (ST CHERIE) 81 MG EC tablet Take 1 tablet by mouth 1 (one) time each day Active calcium carbonate (OS-CALLIE) 1250 (500 Ca) MG tablet Take 1 tablet by mouth 1 (one) time each day Active Cholecalciferol 50 MCG (2000 UT) capsule Take 1 capsule by mouth 1 (one) time each day Active coenzyme Q-10 100 MG capsule Take 1 capsule by mouth 1 (one) time each day Active ipratropium-alb uterol (DUO-NEB) 0.5-2.5 mg/3 mL nebulizer solution Active losartan (COZAAR) 100 MG tablet Take 1 tablet by mouth 1 (one) time each day Active rosuvastatin (CRESTOR) 20 MG tablet Take 1 tablet by mouth 1 (one) time each day Active warfarin (COUMADIN) 5 MG tablet Duration: 90 Active omega-3 (FISH OIL) 1000 MG capsule Take 1 capsule by mouth 1 (one) time each day Active Magnesium 400 MG capsule Take 1 tablet by mouth 1 (one) time each day Active B Complex Vitamins (VITAMIN B COMPLEX PO) Take 1 tablet by mouth 1 (one) time each day Active Multiple Vitamin (MULTIVITAMIN ADULT PO) Take 1 capsule by mouth 1 (one) time each day Active bumetanide (BUMEX) 1 MG tablet Take 2 mg by mouth 1 (one) time each day Active metoprolol tartrate (LOPRESSOR) 100 MG tablet Take 1 tablet by mouth twice a day 09/13/2020 Active prednisoLONE acetate (PRED FORTE) 1 % ophthalmic suspension INSTILL 1 DROP INTO LEFT EYE 4 TIMES DAILY 10/19/2021 Active valACYclovir (VALTREX) 500 MG tablet Take 1 tablet by mouth 1 (one) time each day 11/09/2021 Active Active Problems Problem Noted Date Diagnosed Date Hypertensive disorder 05/13/2020 Proteinuria 05/13/2020 Renal stone 05/13/2020 Vitamin D deficiency Sleep apnea Chronic kidney disease, stage 2 (mild) Hypertensive chronic kidney disease Encounters Date Type Department Care Team Description 02/15/2024 Orders Only [facility] [address] [place] [address] Dale Hebert MD Chronic kidney disease, stage 2 (mild); Other proteinuria from Last 3 Months Family History Medical History Relation Comments Diabetes Father Heart disease Father Hypertension Father Cancer Mother brain tumor Hypertension Sibling 1 Cancer Sibling 2 Relation Status Comments Father Mother Sibling 1 Sibling 2 Social History Tobacco Use Types Packs/Day Years Used Date Smoking Tobacco: Former Cigarettes Q uit: 02/05/2003 Smokeless Tobacco: Former Tobacco Cessation:Counseling Given: No Comments:Smoking History Info:Every day Alcohol Use Standard Drinks/Week Comments Yes 0 (1 standard drink = 0.6 oz pure alcohol) Alcoholic Drinks/day: Occasional social drink Sex and Gender Information Value Date Recorded Sex Assigned at Not on file Legal Sex Male 4:52 PM EST Gender Identity Not on file Sexual Orientation Not on file Last Filed Vital Signs Vital Sign Reading Time Taken Comments Blood Pressure 130/90 11/15/2023 2:17 PM EDT Pulse 38 11/15/2023 2:17 PM EDT Temperature - - Respiratory Rate - - Oxygen Saturation 87% 11/15/2023 2:17 PM EDT Inhaled Oxygen Concentration - - Weight 142 kg (312 lb 3.2 oz) 11/15/2023 2:17 PM EDT Height 188 cm (6' 2 ) 11/15/2018 12:02 PM EDT Body Mass Index 40.08 11/15/2018 12:02 PM EDT Plan of Treatment Health Maintenance Due Date Last Done Comments Pneumococcal Vaccine: Pediat rics (0 to 5 Years) and At-Risk Patients (6 to 64 Years) (1 of 2 - PCV) 1967 Colorectal Cancer Screening: Annual FOBT 2010 Colorectal Cancer Screening: Colonoscopy 2010 Colorectal Cancer Screening: Sigmoidoscopy 2010 Influenza Vaccine (#1) 2023 Hepatitis B Vaccine Aged Out No longe r eligible based on patient's age to complete this topic [place] [address] [address] [place] [address] [place] [address] Care Teams Bottle Machine Operator Relationship Specialty Start Date End Date Trent Stanley MD [address] [place] [address] PCP - General Internal Medicine 11/15/23
== END 2024-04-21 10:28 | disposition home or self-care (01) ==
LOC: HO.HPS 09:47
PROVIDERS: PCP Internal Medicine; Visit Provider Hospitalist
DX: I48.19 Other persistent atrial fibrillation (principal); I50.32 Chronic diastolic (congestive) heart failure; I27.20 Pulmonary hypertension, unspecified; I95.2 Hypotension due to drugs; J43.1 Panlobular emphysema; I05.0 Rheumatic mitral stenosis; R06.02 Shortness of breath
CPT/HCPCS: 99215

== ENCOUNTER 2024-04-21 10:45 | Inpatient (IN) | payer MEDICARE, SELFPAY ==
[2022-08-10 10:10] VITALS: BMI 42.4
--- NOTE | ~2024-04-21 | XR_ITS ---
EXAMINATION: XR CHEST 2 VIEWS HISTORY: SOB COMPARISON: Comparison is made with the prior examination dated 01/01/2023. FINDINGS: AP and lateral views of the chest are submitted. Again seen are increased interstitial markings bilaterally, consistent with fibrosis. There is a new confluent airspace opacity in the right middle lobe, consistent with pneumonia. There is no pleural effusion, pneumothorax, or pulmonary vascular congestion. The heart remains enlarged. There is degenerative disc disease of the spine. XR/XR chest 2V IMPRESSION: Cardiomegaly and pulmonary fibrosis. Right middle lobe pneumonia. Follow-up is recommended to document resolution. Electronically signed by: Anuj Chacko MD 04/21/2024 11:58 AM EDT
[2024-04-21 10:50] VITALS: BP 100/76; PULSE 59; RESP 22; TEMP 36.4; O2SAT 92; BMI 43.0
--- NOTE | 2024-04-21 10:52 | ECG_ITS ---
Test Reason : DYSPNEA Blood Pressure : */* mmHG Vent. Rate : 61 BPM Atrial Rate : * BPM P-R Int : * ms QRS Dur : 136 ms QT Int : 480 ms P-R-T Axes : * 122 -35 degrees QTcB Int : 483 ms Atrial fibrillation Right bundle branch block Abnormal ECG When compared with ECG of 01-Jan-2023 10:52, Atrial fibrillation has replaced Atrial flutter Right bundle branch block has replaced Incomplete right bundle branch block Referred By: Generic ED Physician Electronically Signed By: Alex Bruce
--- NOTE | 2024-04-21 11:05 | ED.SOB ---
HPI - SOB/Dyspnea General Chief Complaint: Dyspnea Stated Complaint: Walk in from Pulmonary Time Seen by Provider: 04/21/24 10:58 Source: patient Mode of arrival: wheelchair Limitations: no limitations History of Present Illness HPI Narrative: 64 years old male with a history of interstitial lung disease lymphoma was sent by the accounts receivable coordinator's office Dr. Lang for possible admission because increasing shortness of breath and cough. The patient he has been short of breath on minimal exertion. He denies any fever chills vomiting. MD elicited complaint: shortness of breath Pertinent past history: other (Interstitial lung disease/pulmonary hypertension) Onset (ago): day(s) Context: occurred during exertion Timing: constant Severity: moderate Exacerbating factors: exertion Relieving factors: rest Known history of: other (Chronic interstitial lung disease) Associated symptoms: denies other symptoms Treatment prior to arrival: oxygen Related Data Home oxygen amount: 4 liters Home Medications ?Medication ?Instructions ?Recorded ?Confirmed aspirin 81 mg tablet,delayed 81 mg PO DAILY 03/12/20 12/17/23 release (Adult Low Dose Aspirin) cholecalciferol (vitamin D3) 50 50 mcg PO DAILY 03/12/20 12/17/23 mcg (2,000 unit) capsule omega-3 fatty acids-fish oil 360 1 cap PO DAILY 03/12/20 12/17/23 mg-1,200 mg capsule (Fish Oil) multivitamin 1 tab PO DAILY 07/12/20 12/17/23 Oxygen Home Use 06/14/22 12/17/23 vitamin B complex 1 tab PO DAILY 10/31/22 12/17/23 calcium carbonate 500 mg PO DAILY 01/01/23 12/17/23 coQ10 (ubiquinol) 100 mg capsule 100 mg PO DAILY 04/21/24 (Qunol Reyes CoQ10) losartan 100 mg tablet 50 mg PO DAILY 04/21/24 Previous Rx's ?Medication ?Instructions ?Recorded bumetanide 2 mg tablet 2 mg PO BID 90 days #180 tabs 05/28/23 rosuvastatin 20 mg tablet 20 mg PO BEDTIME 90 days #90 tabs 08/03/23 umeclidinium 62.5 mcg-vilanterol 1 inh inhalation DAILY 90 days #3 08/13/23 25 mcg/actuation powdr for ea inhalation (Anoro Ellipta) dapagliflozin propanediol 10 mg 10 mg PO DAILY #90 tabs 12/17/23 tablet (Farxiga) metoprolol tartrate 100 mg tablet 100 mg PO BID 90 days #180 tabs 12/17/23 apixaban 5 mg tablet 5 mg PO BID #60 tabs 12/26/23 Allergies Allergy/AdvReac Type Severity Reaction Status Date / Time ciprofloxacin [From CIPRO] Allergy Intermediate DIFFICULTY Verified 04/21/24 10:51 BREATHING vancomycin [VANCOMYCIN] Allergy Intermediate RASH, rash Verified 04/21/24 10:51 over whole body Review of Systems Constitutional: Constitutional: Reports no additional constitutional complaints Cardiovascular: Cardiovascular: Reports dyspnea Respiratory: Respiratory: Reports dyspnea [facility] Past Medical History Attestation statement: The following information was validated with the patient. Medical History Mitral stenosis Pulmonary hypertension SOB (shortness of breath) Cor pulmonale Dyspnea Oxygen dependent Chronic hypoxemic respiratory failure Sleep apnea COPD (chronic obstructive pulmonary disease) Hyperlipidemia Atrial fibrillation Hypertension, essential Current use of anticoagulant therapy Surgical History History of carpal tunnel surgery History of colonoscopy History of thumb surgery History of mitral valve repair History of umbilical hernia History of tonsillectomy History of vasectomy Family History Family History Father No problems noted. Mother No problems noted. Brother No problems noted. Sister Mental health disorder Sister No problems noted. Sister No problems noted. Sister No problems noted. Son No problems noted. Daughter No problems noted. Social History Social History Household Members: None Housing: Apartment Do you presently have visiting nurse or other home services: Yes (home care twice a week) Alcohol intake: former Patient Tobacco Use Status: Former Tobacco user Tobacco use type: Cigarette Years Smoked: 25 Smoked in Last 30 Days: No e-Cigarette/Vaping Use: Never Used Second Hand Smoke Exposure: Yes (cigar smoke) Use of substances other than those prescribed or required for medical reasons: Yes Substance Use Type: Marijuana Substance Use Type Other:: edibles Substance Use Frequency: Occasionally Have you been hit, kicked, punched, or otherwise hurt by someone within the past year? If so, by whom?: No Do you feel safe in your current relationship?: No Current Relationship Is there a partner from a previous relationship who is making you feel unsafe now?: No Are you made to feel afraid or neglected: No Advance Directives: Yes Advance Directives on File: Yes Advance Directives Date on File: 07/12/20 Do you have a plan to hurt others: No Plan Recently lost weight without trying: No Nutrition Risks: No Nutritional Risk service: No Current occupational status: disabled Cognitive needs: No Hearing needs: No Vision needs: Yes Physical Exam Vital Signs: Vital Signs: Last Vital Signs Temp 97.5 F 04/21/24 10:50 Pulse 52 04/21/24 13:06 Resp 20 04/21/24 13:06 BP 92/57 L 04/21/24 13:06 Pulse Ox 94 04/21/24 13:06 O2 Del Method Nasal Cannula 04/21/24 13:06 O2 Flow Rate 4 04/21/24 13:06 Oxygen Flow Rate 4 04/21/24 10:50 BMI result Body Mass Index 43.0 He is awake alert tachypneic with a respiration of 22 HEENT: Head: Yes normal to inspection General nose exam: Normal external nose present Face and sinus: Yes normal facial exam Neck: Neck: Yes normal visual inspection and Yes full ROM Resp: Effort & Inspection: able to speak in complete sentences Auscultation: rhonchi Cardio: Jugular venous distension: no JVD Rate: regular rate Rhythm: regular rhythm GI: Inspection: Yes normal to inspection Palpation (GI): Soft to palpation, not firm and nontender Skin: Other: Lower extremity showed edema some cyanosis of the lower extremity, pulses are present General skin exam: no rashes or lesions noted Course Reevaluation(s) Reevaluation #1: spoke with hospitalist kristi 1.5 Time: 14:10 Medications Administered Generic Name Dose Route Start Last Admin Trade Name Freq PRN Reason Stop Dose Admin Furosemide 40 mg 04/21/24 13:00 04/21/24 13:20 Furosemide 40 Mg/4 Ml Vial IVPUSH Not Given BID@0900,1800 [facility] Protocol Azithromycin 500 mg/ Sodium 250 mls @ 125 mls/hr 04/21/24 12:21 04/21/24 12:51 Chloride IV 04/21/24 14:20 125 mls/hr ONCE ONE Administration Methylprednisolone Sodium Succinate 40 mg 04/21/24 13:00 04/21/24 13:05 Methylprednisolone Sod Succ 40 Mg/Ml Vial IVPUSH 40 mg Q12H [facility] Administration Discontinued Medications Generic Name Dose Route Start Last Admin Trade Name Freq PRN Reason Stop Dose Admin Ceftriaxone Sodium 1 gm 04/21/24 12:20 04/21/24 12:51 Ceftriaxone Sodium 1 Gm Vial IVPUSH 04/21/24 12:21 1 gm ONCE ONE Administration Medical Decision Making Medical Decision Making [facility] Narrative: Patient presented with shortness of breath sent by the pulmonology office we will obtain chest x-ray EKG labs Differential Diagnosis Differential Diagnoses: The differential diagnosis associated with the presentation includes Congestive heart failure, pneumonia/deconditioning Admission/Observation Consideration of admission/observation: Escalation of care including admission/observation considered Consult Healthcare Provider Management of the patient was discussed with: Hospitalist Lab Data [facility] Lab Attestation statement: I reviewed the patient's lab results. 04/21/24 11:12 04/21/24 11:12 Labs: Lab Results 04/21/24 04/21/24 04/21/24 Range/Units 11:06 11:12 11:13 WBC 6.3 (4.8-10.8) X10*3/uL RBC 6.07 H (4.60-5.80) X10*6/uL Hgb 18.4 H (14.0-18.0) g/dl Hct 55.5 H (42.0-52.0) % MCV 91.4 (80.0-98.0) fL MCH 30.3 (27.0-33.0) pg MCHC 33.2 (31.0-36.0) g/dl RDW 19.4 H (11.0-16.0) % Plt Count 83 L (160-400) X10*3/uL MPV 11.4 (9.4-12.4) fL Immature Gran % (Auto) 0.8 H (0.0-0.4) % Neut % (Auto) 65.1 (45-73) % Lymph % (Auto) 20.1 (20-40) % [place] % (Auto) 12.9 H (2-11) % Eos % (Auto) 0.5 (0-4) % Baso % (Auto) 0.6 (0-2) % Lymph # (Auto) 1.3 (1.2-4.9) X10*3/uL [place] # (Auto) 0.8 (0.1-1.2) X10*3/uL Eos # (Auto) 0.0 (0.0-0.4) X10*3/uL Baso # (Auto) 0.0 (0.0-0.2) X10*3/uL Abs Immat Gran (auto) 0.05 H (0.00-0.03) X10*3/uL Absolute Neuts (auto) 4.1 (2.0-8.3) x10*3/uL Absolute Nucleated RBC 0.000 (0.0-0.012) X10*3/uL Nucleated RBC % (auto) 0.0 (0.0-0.2) /100WBC PT 24.5 H (10.9-12.4) SEC INR 2.1 H (0.9-1.1) VBG pH (7.32-7.43) VBG pCO2 mmHg VBG pO2 mmHg VBG HCO3 (22-26) mmol/L VBG O2 Saturation % VBG Base Excess mmol/L Sodium 137 (135-145) mmol/L Potassium 3.5 D (3.3-5.1) mmol/L Chloride 103 (96-108) mmol/L Carbon Dioxide 24 (22-29) mmol/L Anion Gap 14 (12-20) BUN 23 H (9-16) mg/dL Creatinine 1.09 (0.5-1.4) mg/dL Estim Creat Clear Calc 108.0 Estimated GFR > 60 Random Glucose 94 (60-115) mg/dL Lactic Acid (0.5-2.0) mmol/L Calcium 8.9 D (8.4-10.2) mg/dL Total Bilirubin 2.4 H (0.0-1.0) mg/dL AST 33 (5-37) U/L ALT 16 (0-40) U/L Alkaline Phosphatase 232 H (39-117) U/L Troponin I High Sens 5.3 (<3.5-35.0) ng/L B-Natriuretic Peptide 1832 H (<100) pg/mL Total Protein 5.8 L (6.5-8.0) g/dL Albumin 3.3 L (3.5-5.0) g/dL Influenza Type A (PCR) NEGATIVE (Negative) Influenza Type B (PCR) NEGATIVE (Negative) RSV RNA Qual (PCR) NEGATIVE (Negative) SARS-CoV-2 RNA (RT-PCR) NEGATIVE (Negative) 04/21/24 04/21/24 Range/Units 11:19 12:48 WBC (4.8-10.8) X10*3/uL RBC (4.60-5.80) X10*6/uL Hgb (14.0-18.0) g/dl Hct (42.0-52.0) % MCV (80.0-98.0) fL MCH (27.0-33.0) pg MCHC (31.0-36.0) g/dl RDW (11.0-16.0) % Plt Count (160-400) X10*3/uL MPV (9.4-12.4) fL Immature Gran % (Auto) (0.0-0.4) % Neut % (Auto) (45-73) % Lymph % (Auto) (20-40) % [place] % (Auto) (2-11) % Eos % (Auto) (0-4) % Baso % (Auto) (0-2) % Lymph # (Auto) (1.2-4.9) X10*3/uL [place] # (Auto) (0.1-1.2) X10*3/uL Eos # (Auto) (0.0-0.4) X10*3/uL Baso # (Auto) (0.0-0.2) X10*3/uL Abs Immat Gran (auto) (0.00-0.03) X10*3/uL Absolute Neuts (auto) (2.0-8.3) x10*3/uL Absolute Nucleated RBC (0.0-0.012) X10*3/uL Nucleated RBC % (auto) (0.0-0.2) /100WBC PT (10.9-12.4) SEC INR (0.9-1.1) VBG pH 7.43 (7.32-7.43) VBG pCO2 36 mmHg VBG pO2 64 mmHg VBG HCO3 24 (22-26) mmol/L VBG O2 Saturation 91.0 % VBG Base Excess 0.6 mmol/L Sodium (135-145) mmol/L Potassium (3.3-5.1) mmol/L Chloride (96-108) mmol/L Carbon Dioxide (22-29) mmol/L Anion Gap (12-20) BUN (9-16) mg/dL Creatinine (0.5-1.4) mg/dL Estim Creat Clear Calc Estimated GFR Random Glucose (60-115) mg/dL Lactic Acid 1.5 (0.5-2.0) mmol/L Calcium (8.4-10.2) mg/dL Total Bilirubin (0.0-1.0) mg/dL AST (5-37) U/L ALT (0-40) U/L Alkaline Phosphatase (39-117) U/L Troponin I High Sens (<3.5-35.0) ng/L B-Natriuretic Peptide (<100) pg/mL Total Protein (6.5-8.0) g/dL Albumin (3.5-5.0) g/dL Influenza Type A (PCR) (Negative) Influenza Type B (PCR) (Negative) RSV RNA Qual (PCR) (Negative) SARS-CoV-2 RNA (RT-PCR) (Negative) Independent Interpretation I performed an independent interpretation of an: EKG (Atrial fibrillation with controlled rate 61) and Plain X-Ray Interpretation: AFib rate [address]-T changes Chest x-ray reviewed interpreted by me as right middle lobe pneumonia and possible right pleural effusion Radiology Impression Discussion of test interpretation with radiology: I have reviewed the radiologist's reading. Independent Historian Clinical information obtained from an independent historian. History obtained from or confirmed by: Other (son) External Record Review External record reviewed: Inpatient record and Outpatient record Critical Care Time Critical Care Time Critical Care Time: Yes Total Critical Care Time: 60 Attestation: taking care o the pt ,speaking with family Discharge Plan Discharge Clinical Impression: Acute dyspnea Pneumonia Qualifiers: Pneumonia type: due to unspecified organism Laterality: right Lung location: middle lobe of lung Qualified Code(s): J18.9 - Pneumonia, unspecified organism Patient Disposition: Admitted As Inpatient
[2024-04-21 11:19] LABS: MANUAL DIFF FLAG NO
[2024-04-21 11:22] LABS: Venous Blood Gas Refer to POC result
[2024-04-21 11:22] LABS: VBG Base Excess 0.6 mmol/L; VBG HCO3 24 mmol/L (22-26); VBG pCO2 36 mmHg; VBG pH 7.43 (7.32-7.43); VBG pO2 64 mmHg
[2024-04-21 11:22] LABS: Basophils Percent Auto 0.6 % (0-2); Eosinophils Percent Auto 0.5 % (0-4); Hemoglobin 18.4 g/dl (14.0-18.0); Imm Gran Abs Auto 0.05 X10*3/uL (0.00-0.03); Imm Gran Pct Auto 0.8 % (0.0-0.4); Lymphocytes Absolute Auto 1.3 X10*3/uL (1.2-4.9); Lymphocytes Percent Auto 20.1 % (20-40); Mean Corpuscular HGB Conc 33.2 g/dl (31.0-36.0); Mean Corpuscular Hemoglobin 30.3 pg (27.0-33.0); Mean Corpuscular Volume 91.4 fL (80.0-98.0); Mean Platelet Volume 11.4 fL (9.4-12.4); Monocytes Absolute Auto 0.8 X10*3/uL (0.1-1.2); Monocytes Percent Auto 12.9 % (2-11); Neutrophils Absolute Auto 4.1 x10*3/uL (2.0-8.3); Neutrophils Percent Auto 65.1 % (45-73); Red Blood Count 6.07 X10*6/uL (4.60-5.80); Red Cell Distribution Width 19.4 % (11.0-16.0); White Blood Count 6.3 X10*3/uL (4.8-10.8)
[2024-04-21 11:24] LABS: Hematocrit 55.5 % (42.0-52.0); Platelet Count 83 X10*3/uL (160-400)
[2024-04-21 11:33] LABS: INTERNATIONAL NORM RATIO 2.1 (0.9-1.1); Prothrombin Time 24.5 SEC (10.9-12.4)
[2024-04-21 11:38] LABS: Alanine Aminotransferase 16 U/L (0-40); Albumin Level 3.3 g/dL (3.5-5.0); Alkaline Phosphatase 232 U/L (39-117); Anion Gap 14 (12-20); Aspartate Amino Transferase 33 U/L (5-37); Bilirubin Total 2.4 mg/dL (0.0-1.0); Blood Urea Nitrogen 23 mg/dL (9-16); Calcium 8.9 mg/dL (8.4-10.2); Carbon Dioxide 24 mmol/L (22-29); Chloride 103 mmol/L (96-108); Estimated Glomerular Filt Rate > 60; Glucose Random 94 mg/dL (60-115); Potassium 3.5 mmol/L (3.3-5.1); Sodium 137 mmol/L (135-145); Total Protein 5.8 g/dL (6.5-8.0)
[2024-04-21 11:40] LABS: B Type Natriuretic Peptide 1832 pg/mL (<100); Troponin-I High Sensitivity 5.3 ng/L (<3.5-35.0)
[2024-04-21 12:00] LABS: Influenza A PCR NEGATIVE (Negative); Influenza B PCR NEGATIVE (Negative); Resp Syncy Virus RNA Qual PCR NEGATIVE (Negative); SARS COV2 PCR INHOUSE NEGATIVE (Negative)
--- NOTE | 2024-04-21 12:31 | PC.NURSE ---
Pt presents to ED via wheelchair from pulmonary appointment for low SPO2 and low BP. Pt is alert and oriented, on 4L O2NC at baseline for COPD, breathing labored and worsens with any exertion. Skin warm and dry, bilat lower leg purple color with poor perfusion at baseline. Pt reports SOB and feeling unwell for past 2 weeks worsening, reports feeling swollen and bloated, has had issues with fluid overload in the past. Denies pain. 88-93% on 4L O2 NC.
[2024-04-21] MEDS: cefTRIAXone sodium 1 GM VIAL IVPUSH (12:51)
[2024-04-21] MEDS: Azithromycin 500 MG in 0.9 % Sodium Chloride 250 ML 125 MG IV (12:51)
[2024-04-21] MEDS: methylPREDNISolone Sod Succ 40 MG/ML VIAL IVPUSH (13:05)
[2024-04-21 13:06] VITALS: BP 92/57; PULSE 52; RESP 20; O2SAT 94
--- NOTE | 2024-04-21 13:09 | P.HPHOSP_ITS ---
History of Present Illness Date of Service: 04/21/24 Chief Complaint: Shortness of breath 64 years old male with a history of interstitial lung disease presented from his pulmonologists office with worsening sob and cough. He denied any fever, chills, recent illness, recent travel or sick contacts. Reported that he has increased shortness of breath over the last few weeks, he is chronically on oxygen follows with his pyroglazer regularly. In the ER, CXR showing cardiomegaly, pulmonary fibrosis, right middle lobe pneumonia. No fever leukocytosis noted. He was given a dose of Rocephin and azithromycin in the ER. He will be admitted for further management and treatment of possible acute heart failure and pneumonia. Review of Systems 2 Review of Systems: Denies any recent fever chills or decrease in appetite respiratory See HPI cardiovascular Denied chest pain gastrointestinal denies any dysphagia abdominal pain nausea vomiting or diarrhea genitourinary denies any dysuria frequency or hematuria musculoskeletal denies any joint pain or swelling neuropsych denies any weakness or seizures all other systems reviewed are negative [facility] Medical History Mitral stenosis Pulmonary hypertension SOB (shortness of breath) Cor pulmonale Dyspnea Oxygen dependent Chronic hypoxemic respiratory failure Sleep apnea COPD (chronic obstructive pulmonary disease) Hyperlipidemia Atrial fibrillation Hypertension, essential Current use of anticoagulant therapy Family History Father No problems noted. Mother No problems noted. Brother No problems noted. Sister Mental health disorder Sister No problems noted. Sister No problems noted. Sister No problems noted. Son No problems noted. Daughter No problems noted. Surgical History History of carpal tunnel surgery History of colonoscopy History of thumb surgery History of mitral valve repair History of umbilical hernia History of tonsillectomy History of vasectomy Social History Household Members: None Housing: Apartment Do you presently have visiting nurse or other home services: Yes (home care twice a week) Alcohol intake: former Patient Tobacco Use Status: Former Tobacco user Tobacco use type: Cigarette Years Smoked: 25 Smoked in Last 30 Days: No e-Cigarette/Vaping Use: Never Used Second Hand Smoke Exposure: Yes (cigar smoke) Use of substances other than those prescribed or required for medical reasons: Yes Substance Use Type: Marijuana Substance Use Type Other:: edibles Substance Use Frequency: Occasionally Have you been hit, kicked, punched, or otherwise hurt by someone within the past year? If so, by whom?: No Do you feel safe in your current relationship?: No Current Relationship Is there a partner from a previous relationship who is making you feel unsafe now?: No Are you made to feel afraid or neglected: No Advance Directives: Yes Advance Directives on File: Yes Advance Directives Date on File: 07/12/20 Do you have a plan to hurt others: No Plan Recently lost weight without trying: No Nutrition Risks: No Nutritional Risk service: No Current occupational status: disabled Cognitive needs: No Hearing needs: No Vision needs: Yes Meds Allergies Allergy/AdvReac Type Severity Reaction Status Date / Time ciprofloxacin [From CIPRO] Allergy Intermediate DIFFICULTY Verified 04/21/24 10:51 BREATHING vancomycin [VANCOMYCIN] Allergy Intermediate RASH, rash Verified 04/21/24 10:51 over whole body Active Medications: Current Medications Acetaminophen (Acetaminophen 325 Mg Tablet) 650 mg PO Q6H PRN PRN Reason: Pain, Mild 1-3,fever,headache Calcium Carbonate (Calcium Carbonate 750 Mg Tab.Chew) 750 mg PO Q4H PRN PRN Reason: Heartburn Ceftriaxone Sodium (Ceftriaxone Sodium 1 Gm Vial) 1 gm IVPUSH Q24H MARC Furosemide (Furosemide 40 Mg/4 Ml Vial) 40 mg IVPUSH BID@0900,1800 MARC; Protocol Azithromycin 500 mg/ Sodium (Chloride) 250 mls @ 125 mls/hr IV ONCE ONE Stop: 04/21/24 14:20 Last Admin: 04/21/24 12:51 Dose: 125 mls/hr Azithromycin 500 mg/ Sodium (Chloride) 250 mls @ 125 mls/hr IV Q24H MARC Magnesium Hydroxide (Milk Of Magnesia 30 Ml Oral.Susp) 30 ml PO DAILY PRN PRN Reason: Constipation Melatonin (Melatonin 3 Mg Tablet) 6 mg PO BEDTIME PRN PRN Reason: Insomnia Methylprednisolone Sodium Succinate (Methylprednisolone Sod Succ 40 Mg/Ml Vial) 40 mg IVPUSH Q12H MARC Last Admin: 04/21/24 13:05 Dose: 40 mg Ondansetron HCl (Ondansetron Hcl 4 Mg/2 Ml Vial) 4 mg IVPUSH Q8H PRN PRN Reason: Nausea and Vomiting Sodium Chloride (0.9 % Sodium Chloride Flush 3 Ml Syringe) 3 ml IVFLUSH QSHIFT [facility] Home Medications ?Medication ?Instructions ?Recorded ?Confirmed ?Last Taken ?Type aspirin 81 mg tablet,delayed 81 mg PO DAILY 03/12/20 12/17/23 07/12/20 History release (Adult Low Dose Aspirin) cholecalciferol (vitamin D3) 50 50 mcg PO DAILY 03/12/20 12/17/23 07/12/20 History mcg (2,000 unit) capsule omega-3 fatty acids-fish oil 360 1 cap PO DAILY 03/12/20 12/17/23 07/12/20 History mg-1,200 mg capsule (Fish Oil) multivitamin 1 tab PO DAILY 07/12/20 12/17/23 07/12/20 History Oxygen Home Use 06/14/22 12/17/23 Unknown History vitamin B complex 1 tab PO DAILY 10/31/22 12/17/23 Unknown History calcium carbonate 500 mg PO DAILY 01/01/23 12/17/23 Unknown History bumetanide 2 mg tablet 2 mg PO DAILY 04/21/24 04/21/24 04/21/24 History coQ10 (ubiquinol) 100 mg capsule 100 mg PO DAILY 04/21/24 Unknown History (Qunol Reyes CoQ10) losartan 100 mg tablet 50 mg PO DAILY 04/21/24 Unknown History Physical Exam 2 Vital Signs and Narrative: Vital Signs: Last Vital Signs Temp 97.5 F 04/21/24 10:50 Pulse 52 04/21/24 13:06 Resp 20 04/21/24 13:06 BP 92/57 L 04/21/24 13:06 Pulse Ox 94 04/21/24 13:06 O2 Del Method Nasal Cannula 04/21/24 13:06 O2 Flow Rate 4 04/21/24 13:06 Oxygen Flow Rate 4 04/21/24 10:50 BMI result Body Mass Index 43.0 Appearing in no acute distress head is normocephalic atraumatic eyes pupils are PERRLA sclera is anicteric mouth throat mucous membranes are intact and moist neck is supple no lymphadenopathy, no JVD noted lung sounds are clear to auscultation heart regular rate rhythm, clear S1, S2 positive bowel sounds, abdomen is soft, nontender neuro patient is alert x3, no focal deficits Results Labs 04/21/24 11:12 04/21/24 11:12 Labs: Laboratory Results - last 24 hr 04/21/24 04/21/24 04/21/24 11:06 11:12 11:13 MCV 91.4 MCH 30.3 MCHC 33.2 RDW 19.4 H Plt Count 83 L MPV 11.4 Immature Gran % (Auto) 0.8 H Neut % (Auto) 65.1 Lymph % (Auto) 20.1 Person % (Auto) 12.9 H Eos % (Auto) 0.5 Baso % (Auto) 0.6 Lymph # (Auto) 1.3 Person # (Auto) 0.8 Eos # (Auto) 0.0 Baso # (Auto) 0.0 Abs Immat Gran (auto) 0.05 H Absolute Neuts (auto) 4.1 Absolute Nucleated RBC 0.000 Nucleated RBC % (auto) 0.0 PT 24.5 H INR 2.1 H VBG pH VBG pCO2 VBG pO2 VBG HCO3 VBG O2 Saturation VBG Base Excess Anion Gap 14 Estim Creat Clear Calc 108.0 Estimated GFR > 60 Random Glucose 94 Calcium 8.9 D Total Bilirubin 2.4 H AST 33 ALT 16 Alkaline Phosphatase 232 H B-Natriuretic Peptide 1832 H Total Protein 5.8 L Albumin 3.3 L Influenza Type A (PCR) NEGATIVE Influenza Type B (PCR) NEGATIVE RSV RNA Qual (PCR) NEGATIVE SARS-CoV-2 RNA (RT-PCR) NEGATIVE 04/21/24 11:19 MCV MCH MCHC RDW Plt Count MPV Immature Gran % (Auto) Neut % (Auto) Lymph % (Auto) Person % (Auto) Eos % (Auto) Baso % (Auto) Lymph # (Auto) Person # (Auto) Eos # (Auto) Baso # (Auto) Abs Immat Gran (auto) Absolute Neuts (auto) Absolute Nucleated RBC Nucleated RBC % (auto) PT INR VBG pH 7.43 VBG pCO2 36 VBG pO2 64 VBG HCO3 24 VBG O2 Saturation 91.0 VBG Base Excess 0.6 Anion Gap Estim Creat Clear Calc Estimated GFR Random Glucose Calcium Total Bilirubin AST ALT Alkaline Phosphatase B-Natriuretic Peptide Total Protein Albumin Influenza Type A (PCR) Influenza Type B (PCR) RSV RNA Qual (PCR) SARS-CoV-2 RNA (RT-PCR) Imaging Radiologist's Impressions: Impressions Chest X-Ray 04/21/24 11:05 IMPRESSION: Cardiomegaly and pulmonary fibrosis. Right middle lobe pneumonia. Follow-up is recommended to document resolution. Electronically signed by: Anuj Chacko MD 04/21/2024 11:58 AM EDT RP Assessment and Plan (1) Chronic diastolic (congestive) heart failure: Status: Acute Plan 64 year old man with a hx of interstitial lung disease presenting with increased shortness of breath Acute on chronic hypoxic respiratory failure secondary to heart failure with preserved ejection fraction, interstitial lung disease and pneumonia Start Rocephin and azithromycin IV Solu-Medrol, scheduled DuoNebs IV Lasix 40 mg b.i.d. Continue supplemental oxygen to keep oxygen saturation greater than 89% Echocardiogram Pulmonology consultation Persistent atrial fibrillation Continue beta-baron, Eliquis Hypertension Hold losartan due to soft blood pressures Hyperlipidemia Continue aspirin, statin Morbid obesity. BMI 43.0 Discussed importance of weight management as this may be contributing to worsening of other comorbidities DVT prophylaxis with Eliquis Full code Quality Stroke Does the patient have a stroke diagnosis?: No VTE Prior VTE?: No VTE Risk Level:: Medical - moderate - high VTE Device Contraindication: Treatment Not Indicated VTE Drug Contraindication: N/A - Med Ordered
[2024-04-21 13:12] LABS: Lactic Acid 1.5 mmol/L (0.5-2.0)
--- NOTE | 2024-04-21 13:20 | PC.NURSE ---
IV LASIX HELD DUE TO LOW BP, PROVIDER AWARE
--- NOTE | 2024-04-21 15:37 | PHA.MEDREC ---
Addendum entered by Zeenat Blake RPh 04/21/24 15:50: Reviewed by [facility] Original Note: Pharmacy Consult ? Medication Reconciliation Pharmacy has completed the medication reconciliation. Spoke with patient and he confirmed his medications. Patient states hes been having a hard time taking some of his medications, especially the Bumetadine and states he missed a week of taking that medication and states he started it again this week and is taking it once a day instead of twice a day. He confirmed he is taking the Eliquis 5mg tab and confirmed he takes it twice a day.He confirmed he took all his morning medications this morning.
[2024-04-21 16:11] VITALS: BP 94/72; PULSE 65; RESP 18; O2SAT 91
[2024-04-21 16:47] VITALS: PULSE 63; RESP 20; TEMP 36.6
[2024-04-21] MEDS: 0.9 % Sodium Chloride Flush 3 ML SYRINGE IVFLUSH (17:13)
--- NOTE | 2024-04-21 17:24 | PC.NURSE ---
Per provider, hold lasixs due to soft BPs
[2024-04-21 21:05] VITALS: BMI 42.7
[2024-04-21 21:15] VITALS: BP 129/91; PULSE 94; RESP 20; TEMP 36.2; O2SAT 97
[2024-04-22] VITALS (7 sets, daily range): BP systolic 106–120; BP diastolic 63–71; PULSE 53–87; RESP 17–20; TEMP 36–36.3; O2SAT 89–92
[2024-04-22] MEDS: 0.9 % Sodium Chloride Flush 3 ML SYRINGE IVFLUSH ×3 (00:01→20:17)
[2024-04-22] MEDS: methylPREDNISolone Sod Succ 40 MG/ML VIAL IVPUSH ×2 (00:01→13:19)
[2024-04-22 06:24] LABS: MANUAL DIFF FLAG NO
[2024-04-22 06:30] LABS: Basophils Percent Auto 0.2 % (0-2); Hematocrit 54.5 % (42.0-52.0); Hemoglobin 18.7 g/dl (14.0-18.0); Imm Gran Abs Auto 0.03 X10*3/uL (0.00-0.03); Imm Gran Pct Auto 0.5 % (0.0-0.4); Lymphocytes Absolute Auto 0.9 X10*3/uL (1.2-4.9); Lymphocytes Percent Auto 16.7 % (20-40); Mean Corpuscular HGB Conc 34.3 g/dl (31.0-36.0); Mean Corpuscular Hemoglobin 30.9 pg (27.0-33.0); Mean Corpuscular Volume 89.9 fL (80.0-98.0); Mean Platelet Volume 11.3 fL (9.4-12.4); Monocytes Absolute Auto 0.3 X10*3/uL (0.1-1.2); Monocytes Percent Auto 4.7 % (2-11); Neutrophils Absolute Auto 4.4 x10*3/uL (2.0-8.3); Neutrophils Percent Auto 77.9 % (45-73); Platelet Count 90 X10*3/uL (160-400); Red Blood Count 6.06 X10*6/uL (4.60-5.80); Red Cell Distribution Width 19.1 % (11.0-16.0); White Blood Count 5.6 X10*3/uL (4.8-10.8)
[2024-04-22 06:52] LABS: Alanine Aminotransferase 18 U/L (0-40); Albumin Level 3.5 g/dL (3.5-5.0); Alkaline Phosphatase 271 U/L (39-117); Anion Gap 17 (12-20); Aspartate Amino Transferase 49 U/L (5-37); Bilirubin Total 2.6 mg/dL (0.0-1.0); Blood Urea Nitrogen 23 mg/dL (9-16); Calcium 9.4 mg/dL (8.4-10.2); Carbon Dioxide 23 mmol/L (22-29); Chloride 100 mmol/L (96-108); Creatinine Clr Calc Pharmacy 102.8; Estimated Glomerular Filt Rate > 60; Glucose Random 126 mg/dL (60-115); Sodium 136 mmol/L (135-145); Total Protein 6.4 g/dL (6.5-8.0)
--- NOTE | 2024-04-22 07:00 | CA_ITS ---
Transthoracic Echocardiogram Patient (Last, First, Middle): Ketan Cho R Gender: Male Date of : 1960 Age: 64 Procedure Date: 04/22/2024 Procedure Type: Transthoracic Echocardiogram Location: S3E Height: 187.96 cm Weight: 151.96 kg BSA: 2.71 m2 Heart Rate: 53 bpm BP: 92 / 57 mmHg Computational Chemist: SB Referring MD: Jaleesa Lang NP Symptoms: shortness of breath Study Quality: Fair apical images w/Contrast ECG Rhythm: Atrial Fibrillation Conclusions: - Normal left ventricular size and systolic function. There is mildly increased left ventricular wall thickness. The visually estimated ejection fraction is between 60-65%. - There is a flattened septum in systole and diastole consistent with right ventricular pressure and volume overload. - Severely increased right ventricular cavity size. There is moderate to severely decreased right ventricular systolic function. - Small mobile mass attached to the tricuspid valve open differentials include vegetation, thrombus versus broken chordae. Findings Procedure Information Contrast agent, definity, is being given per protocol without apparent complications. The quality of the study was technically difficult. The study quality is limited by patients body habitus and lung artifact. Left Ventricle Normal left ventricular size and systolic function. There is mildly increased left ventricular wall thickness. The visually estimated ejection fraction is between 60-65%. There is no evidence of regional wall motion abnormalities. There is a flattened septum in systole and diastole consistent with right ventricular pressure and volume overload. Diastolic function is indeterminate on the basis of available data. Right Ventricle Severely increased right ventricular cavity size. There is moderate to severely decreased right ventricular systolic function. Atria The left atrium is moderately dilated. Aortic Valve Normal aortic valve structure and function. There is no aortic valve stenosis. There is no aortic valve regurgitation. Mitral Valve The mitral valve appears normal. There is no mitral valve regurgitation. There is no mitral valve stenosis. Pulmonic Valve The pulmonic valve is likely normal. There is trace pulmonic valve regurgitation. Tricuspid Valve There is mild to moderate tricuspid valve regurgitation. Significantly elevated right atrial pressure. There is no evidence of pulmonary hypertension. PA pressures lower probably due to RV dysfunction. Small mobile mass attached to the tricuspid valve open differentials include vegetation, thrombus versus broken chordae. Great Vessels There is mild dilatation of the sinuses of Valsalva measuring 4.20 cm. Venous The inferior vena cava is severely dilated and does not collapse with inspiration. Pericardium/Pleural There is no evidence of pericardial effusion. Prior Study Comparison Significant changes compared to prior study dated: 03/13/2023. Right ventricular with severely dilated with [id number] RV dysfunction. Small mobile mass attached to the tricuspid valve. Measurements 2D Linear Measurements IVSd: 1.26 0.6-0.9/0.6-1.0 cm LVIDd: 4.47 3.9-5.3/4.2-5.9 cm LVIDd Index: 1.65 2.4-3.2/2.2-3.1 cm/m2 LVIDs: 2.80 2.0-3.6 cm LVPWd: 1.02 0.7-1.1 cm LA Diam: 6.00 2.7-3.8/3.0-4.0 cm LAIDs Index: 2.21 1.5-2.3 cm/m2 LV Mass: 226.96 67-162/88-224 g LV Mass Index: 83.75 43-95/49-115 g/m2 LVOT Diam: 2.60 3.0+(-)1.3 cm 2D Systolic Function EF 4C: 67.40 >55% EF 2C: 81.40 >55% EF BiP: 76.00 >55% Mitral Valve MV VTI: 0.40 MV Pk Terry: 1.24 MV Mn Terry: 0.88 MV Pk Grad: 6.00 MV Mn Grad: 3.00 MV Pk E: 1.16 MVA Continuity: 1.45 LVOT LVOT Pk Terry: 0.56 LVOT Mn Terry: 0.40 LVOT VTI: 0.11 LVOT Pk Grad: 1.00 LVOT Mn Grad: 1.00 LVOT Diam: 2.60 LVOT Area: 5.31 Diastolic Function MV Pk E: 1.16 Right Ventricle TAPSE (mm): 14.00 TVS' Terry: 7.15 Tricuspid Valve TR Pk Terry: 1.79 TR Pk Grad: 13.00 RA Press: 15.00 RVSP: 28.00 Great Vessels Aorta Sinus of Valsalva: 4.20 2.0-3.5 cm Ao Asc: 3.80 2.1-3.4 cm Pulmonary Valve PV Pk Terry: 0.56 Peak PV Grad: 1.00 Updated in Other Vendor System with Status of Final Alex Bruce MD electronically signed on 04/22/2024 1:34:33 PM with status of Final
--- NOTE | 2024-04-22 07:34 | P.PNIM_ITS ---
Subjective Subjective Date of Service: 04/22/24 Physical Exam 2 Vital Signs: Vital Signs: Last Vital Signs Temp 96.8 F 04/22/24 07:18 Pulse 71 04/22/24 07:18 Resp 18 04/22/24 07:18 BP 115/65 04/22/24 07:18 Pulse Ox 90 L 04/22/24 07:18 O2 Del Method Nasal Cannula 04/22/24 07:18 O2 Flow Rate 4 04/22/24 07:18 Oxygen Flow Rate 4 04/21/24 10:50 BMI result Body Mass Index 42.7 Objective Data Active Medications Acetaminophen (Acetaminophen 325 Mg Tablet) 650 mg PO Q6H PRN PRN Reason: Pain, Mild 1-3,fever,headache Apixaban (Apixaban 5 Mg Tablet) 5 mg PO BID [facility] Aspirin (Aspirin Enteric Coated 81 Mg Tablet.Dr) 81 mg PO DAILY [facility] Atorvastatin Calcium (Atorvastatin Calcium 80 Mg Tablet) 80 mg PO DAILY [facility] Calcium Carbonate (Calcium Carbonate 750 Mg Tab.Chew) 750 mg PO Q4H PRN PRN Reason: Heartburn Calcium Carbonate (Calcium Oyster Shell Elemental 500 Mg Tablet) 500 mg PO DAILY [facility] Ceftriaxone Sodium (Ceftriaxone Sodium 1 Gm Vial) 1 gm IVPUSH Q24H [facility] Furosemide (Furosemide 40 Mg/4 Ml Vial) 40 mg IVPUSH BID@0900,1800 [facility]; Protocol Last Admin: 04/21/24 17:14 Dose: Not Given Documented By: GIANNA Non-Admin Reason: Physician Held Med Azithromycin 500 mg/ Sodium (Chloride) 250 mls @ 125 mls/hr IV Q24H [facility] Magnesium Hydroxide (Milk Of Magnesia 30 Ml Oral.Susp) 30 ml PO DAILY PRN PRN Reason: Constipation Melatonin (Melatonin 3 Mg Tablet) 6 mg PO BEDTIME PRN PRN Reason: Insomnia Methylprednisolone Sodium Succinate (Methylprednisolone Sod Succ 40 Mg/Ml Vial) 40 mg IVPUSH Q12H [facility] Last Admin: 04/22/24 00:01 Dose: 40 mg Documented By: RIVER Multivitamins/Vitamin C (Multivitamin Tablet) 1 tab PO DAILY [facility] Ondansetron HCl (Ondansetron Hcl 4 Mg/2 Ml Vial) 4 mg IVPUSH Q8H PRN PRN Reason: Nausea and Vomiting Sodium Chloride (0.9 % Sodium Chloride Flush 3 Ml Syringe) 3 ml IVFLUSH QSHIFT [facility] Last Admin: 04/22/24 00:01 Dose: 3 ml Documented By: RIVER Vitamin D (Cholecalciferol (Vitamin D3) 25 Mcg Tablet) 50 mcg PO DAILY [facility] Labs 04/22/24 05:53 04/22/24 05:53 Labs: Laboratory Results - last 24 hr 04/21/24 04/21/24 04/21/24 11:06 11:12 11:13 MCV 91.4 MCH 30.3 MCHC 33.2 RDW 19.4 H Plt Count 83 L MPV 11.4 Immature Gran % (Auto) 0.8 H Neut % (Auto) 65.1 Lymph % (Auto) 20.1 Kay % (Auto) 12.9 H Eos % (Auto) 0.5 Baso % (Auto) 0.6 Lymph # (Auto) 1.3 Kay # (Auto) 0.8 Eos # (Auto) 0.0 Baso # (Auto) 0.0 Abs Immat Gran (auto) 0.05 H Absolute Neuts (auto) 4.1 Absolute Nucleated RBC 0.000 Nucleated RBC % (auto) 0.0 PT 24.5 H INR 2.1 H VBG pH VBG pCO2 VBG pO2 VBG HCO3 VBG O2 Saturation VBG Base Excess Anion Gap 14 Estim Creat Clear Calc 108.0 Estimated GFR > 60 Random Glucose 94 Lactic Acid Calcium 8.9 D Total Bilirubin 2.4 H AST 33 ALT 16 Alkaline Phosphatase 232 H B-Natriuretic Peptide 1832 H Total Protein 5.8 L Albumin 3.3 L Influenza Type A (PCR) NEGATIVE Influenza Type B (PCR) NEGATIVE RSV RNA Qual (PCR) NEGATIVE SARS-CoV-2 RNA (RT-PCR) NEGATIVE 04/21/24 04/21/24 04/22/24 11:19 12:48 05:53 MCV 89.9 MCH 30.9 MCHC 34.3 RDW 19.1 H Plt Count 90 L MPV 11.3 Immature Gran % (Auto) 0.5 H Neut % (Auto) 77.9 H Lymph % (Auto) 16.7 L Kay % (Auto) 4.7 Eos % (Auto) 0.0 Baso % (Auto) 0.2 Lymph # (Auto) 0.9 L Kay # (Auto) 0.3 Eos # (Auto) 0.0 Baso # (Auto) 0.0 Abs Immat Gran (auto) 0.03 Absolute Neuts (auto) 4.4 Absolute Nucleated RBC 0.000 Nucleated RBC % (auto) 0.0 PT INR VBG pH 7.43 VBG pCO2 36 VBG pO2 64 VBG HCO3 24 VBG O2 Saturation 91.0 VBG Base Excess 0.6 Anion Gap 17 Estim Creat Clear Calc 102.8 Estimated GFR > 60 Random Glucose 126 H Lactic Acid 1.5 Calcium 9.4 Total Bilirubin 2.6 H AST 49 H ALT 18 Alkaline Phosphatase 271 H B-Natriuretic Peptide Total Protein 6.4 L Albumin 3.5 Influenza Type A (PCR) Influenza Type B (PCR) RSV RNA Qual (PCR) SARS-CoV-2 RNA (RT-PCR) Assessment and Plan (1) Chronic diastolic (congestive) heart failure: Status: Acute Plan 64 year old man with a hx of interstitial lung disease presenting with increased shortness of breath Acute on chronic hypoxic respiratory failure secondary to heart failure with preserved ejection fraction, interstitial lung disease and pneumonia continue Rocephin and azithromycin IV Solu-Medrol, scheduled DuoNebs IV Lasix 40 mg b.i.d. Continue supplemental oxygen to keep oxygen saturation greater than 89% Echocardiogram Pulmonology consultation Hypotension better today lasix held overnight hold losartan for now Thrombocytopenia, unspecified Unknown etiology, may be medication related Follow up platelet count, if worsening consult Hematology Polycythemia Chronic Likely secondary to lung disease Persistent atrial fibrillation Continue beta-baron, Eliquis Hypertension Hold losartan due to soft blood pressures Hyperlipidemia Continue aspirin, statin Morbid obesity. BMI 42.7 Discussed importance of weight management as this may be contributing to worsening of other comorbidities DVT prophylaxis with Eliquis Full code Quality Stroke Does the patient have a stroke diagnosis?: No VTE Prior VTE?: No VTE Risk Level:: Medical - moderate - high VTE Device Contraindication: Treatment Not Indicated VTE Drug Contraindication: N/A - Med Ordered
[2024-04-22] MEDS: Furosemide 40 MG/4 ML VIAL IVPUSH ×2 (08:00→13:19)
[2024-04-22] MEDS: Cholecalciferol (Vitamin D3) 25 MCG TABLET 50 MCG PO (08:00)
[2024-04-22] MEDS: Multivitamin TABLET 1 TAB PO (08:00)
[2024-04-22] MEDS: Aspirin Enteric Coated 81 MG TABLET.DR PO (08:00)
[2024-04-22] MEDS: Atorvastatin Calcium 80 MG TABLET PO (08:01)
[2024-04-22] MEDS: Apixaban 5 MG TABLET PO ×2 (08:01→20:13)
[2024-04-22] MEDS: Calcium Oyster Shell Elemental 500 MG TABLET PO (08:01)
--- NOTE | 2024-04-22 13:39 | P.CONCA_ITS ---
History of Present Illness History of Present Illness Date of Service: 04/22/24 Chief complaint: Right heart failure Narrative: 64 year gentleman with background history of pulmonary hypertension, persistent atrial fibrillation, COPD, morbid obesity, CALLAWAY and diastolic heart failure who is presenting from pulmonology clinic with significant volume overload and heart failure. He underwent echocardiography today which showed severe RV dilation with [id number] RV dysfunction and significantly elevated right-sided filling pressures. He is saying he has been feeling bloated and full for few weeks but over the last week he became more symptomatic. He also accidentally missed his Bumex for approximately 5 days. He has been on high-dose metoprolol 100 mg twice a day. He was hypotensive and metoprolol has been held. He did not receive any diuretics initially because of low blood pressures. [facility] Past Medical History Medical History Mitral stenosis Pulmonary hypertension SOB (shortness of breath) Cor pulmonale Dyspnea Oxygen dependent Chronic hypoxemic respiratory failure Sleep apnea COPD (chronic obstructive pulmonary disease) Hyperlipidemia Atrial fibrillation Hypertension, essential Current use of anticoagulant therapy Family History Family History Father No problems noted. Mother No problems noted. Brother No problems noted. Sister Mental health disorder Sister No problems noted. Sister No problems noted. Sister No problems noted. Son No problems noted. Daughter No problems noted. Surgical History Surgical History History of carpal tunnel surgery History of colonoscopy History of thumb surgery History of mitral valve repair History of umbilical hernia History of tonsillectomy History of vasectomy Social History Social History Household Members: None Housing: Apartment Do you presently have visiting nurse or other home services: Yes (home care twice a week) Alcohol intake: former Patient Tobacco Use Status: Former Tobacco user Tobacco use type: Cigarette Years Smoked: 25 e-Cigarette/Vaping Use: Never Used Second Hand Smoke Exposure: Yes (cigar smoke) Substance Use Type: Marijuana Advance Directives Date on File: 07/12/20 service: No Current occupational status: disabled Cognitive needs: No Hearing needs: No Vision needs: Yes Meds Allergies Allergy/AdvReac Type Severity Reaction Status Date / Time ciprofloxacin [From CIPRO] Allergy Intermediate DIFFICULTY Verified 04/21/24 10:51 BREATHING vancomycin [VANCOMYCIN] Allergy Intermediate RASH, rash Verified 04/21/24 10:51 over whole body Active Medications: Current Medications Acetaminophen (Acetaminophen 325 Mg Tablet) 650 mg PO Q6H PRN PRN Reason: Pain, Mild 1-3,fever,headache Apixaban (Apixaban 5 Mg Tablet) 5 mg PO BID [facility] Last Admin: 04/22/24 08:01 Dose: 5 mg Aspirin (Aspirin Enteric Coated 81 Mg Tablet.Dr) 81 mg PO DAILY [facility] Last Admin: 04/22/24 08:00 Dose: 81 mg Atorvastatin Calcium (Atorvastatin Calcium 80 Mg Tablet) 80 mg PO DAILY [facility] Last Admin: 04/22/24 08:01 Dose: 80 mg Calcium Carbonate (Calcium Carbonate 750 Mg Tab.Chew) 750 mg PO Q4H PRN PRN Reason: Heartburn Calcium Carbonate (Calcium Oyster Shell Elemental 500 Mg Tablet) 500 mg PO DAILY [facility] Last Admin: 04/22/24 08:01 Dose: 500 mg Furosemide (Furosemide 40 Mg/4 Ml Vial) 40 mg IVPUSH BID@0900,1800 [facility]; Protocol Last Admin: 04/22/24 08:00 Dose: 40 mg Furosemide 200 mg/ Sodium (Chloride) 100 mls @ 2.5 mls/hr IVCONT .Q24H [facility] Magnesium Hydroxide (Milk Of Magnesia 30 Ml Oral.Susp) 30 ml PO DAILY PRN PRN Reason: Constipation Melatonin (Melatonin 3 Mg Tablet) 6 mg PO BEDTIME PRN PRN Reason: Insomnia Methylprednisolone Sodium Succinate (Methylprednisolone Sod Succ 40 Mg/Ml Vial) 40 mg IVPUSH Q12H [facility] Last Admin: 04/22/24 13:19 Dose: 40 mg Multivitamins/Vitamin C (Multivitamin Tablet) 1 tab PO DAILY [facility] Last Admin: 04/22/24 08:00 Dose: 1 tab Ondansetron HCl (Ondansetron Hcl 4 Mg/2 Ml Vial) 4 mg IVPUSH Q8H PRN PRN Reason: Nausea and Vomiting Sodium Chloride (0.9 % Sodium Chloride Flush 3 Ml Syringe) 3 ml IVFLUSH QSHIFT [facility] Last Admin: 04/22/24 08:01 Dose: 3 ml Vitamin D (Cholecalciferol (Vitamin D3) 25 Mcg Tablet) 50 mcg PO DAILY [facility] Last Admin: 03/18/25 08:00 Dose: 50 mcg Home Medications ?Medication ?Instructions ?Recorded ?Confirmed ?Last Taken ?Type aspirin 81 mg tablet,delayed 81 mg PO DAILY 03/12/20 04/21/24 04/21/24 History release (Adult Low Dose Aspirin) cholecalciferol (vitamin D3) 50 50 mcg PO DAILY 03/12/20 04/21/24 04/21/24 History mcg (2,000 unit) capsule omega-3 fatty acids-fish oil 360 1 cap PO DAILY 03/12/20 04/21/24 04/21/24 History mg-1,200 mg capsule (Fish Oil) multivitamin 1 tab PO DAILY 07/12/20 04/21/24 04/21/24 History Oxygen Home Use 06/14/22 12/17/23 Unknown History vitamin B complex 1 tab PO DAILY 10/31/22 04/21/24 04/21/24 History calcium carbonate 500 mg PO DAILY 01/01/23 04/21/24 04/21/24 History bumetanide 2 mg tablet 2 mg PO DAILY 04/21/24 04/21/24 04/21/24 History coQ10 (ubiquinol) 100 mg capsule 100 mg PO DAILY 04/21/24 04/21/24 04/21/24 History (Qunol Reyes CoQ10) losartan 100 mg tablet 50 mg PO DAILY 04/21/24 04/21/24 04/21/24 History Physical Exam 2 Vital Signs: Vital Signs: Last Vital Signs Temp 96.8 F 04/22/24 07:18 Pulse 64 04/22/24 13:12 Resp 20 04/22/24 13:12 BP 107/63 04/22/24 13:12 Pulse Ox 90 L 04/22/24 13:12 O2 Del Method Nasal Cannula 04/22/24 13:12 O2 Flow Rate 4 04/22/24 13:12 Oxygen Flow Rate 4 04/21/24 10:50 BMI result Body Mass Index 42.7 GENERAL APPEARANCE: in no acute distress, pleasant. NECK: no carotid bruit, positive jugular venous distention to the angle of jaw. SKIN: no suspicious lesions, warm and dry. HEART: no murmurs, irregular rate and rhythm. Bradycardic. LUNGS: clear to auscultation bilaterally. ABDOMEN: soft, nontender. Significant distention with abdominal wall edema. EXTREMITIES: 3+ edema bilaterally. PERIPHERAL PULSES: equal. NEUROLOGIC: No gross deficits, AAO X 3 Objective Labs and Meds 04/22/24 05:53 04/22/24 05:53 Lab results: Laboratory Results - last 24 hr 04/22/24 05:53 WBC 5.6 RBC 6.06 H Hgb 18.7 H Hct 54.5 H MCV 89.9 MCH 30.9 MCHC 34.3 RDW 19.1 H Plt Count 90 L MPV 11.3 Immature Gran % (Auto) 0.5 H Neut % (Auto) 77.9 H Lymph % (Auto) 16.7 L [place] % (Auto) 4.7 Eos % (Auto) 0.0 Baso % (Auto) 0.2 Lymph # (Auto) 0.9 L [place] # (Auto) 0.3 Eos # (Auto) 0.0 Baso # (Auto) 0.0 Abs Immat Gran (auto) 0.03 Absolute Neuts (auto) 4.4 Absolute Nucleated RBC 0.000 Nucleated RBC % (auto) 0.0 Sodium 136 Potassium 4.0 Chloride 100 Carbon Dioxide 23 Anion Gap 17 BUN 23 H Creatinine 1.14 Estim Creat Clear Calc 102.8 Estimated GFR > 60 Random Glucose 126 H Calcium 9.4 Total Bilirubin 2.6 H AST 49 H ALT 18 Alkaline Phosphatase 271 H Total Protein 6.4 L Albumin 3.5 Assessment and Plan (1) Right heart failure: Status: Acute Plan 64 year gentleman with diastolic heart failure with right more than left-sided failure at this point on background of pulmonary hypertension, COPD and known diastolic failure. He has significant volume overload at this point. Stop the metoprolol and avoid any negative inotropes specially Cardizem. Start him on a Lasix drip 5 milligram/hour after 40 mg loading dose. Monitor electrolytes closely. Add spironolactone 25 mg daily and over the next 1 to do days increase it to 25 mg twice a day. Significant RV dysfunction and volume overload. I am hopeful that with diuresis we maybe able to improve his right-sided filling pressures and potential function. Prognosis overall is guarded and this is in advanced issue unfortunately. Thank you for allowing me to participate in the care of your patient. Please feel free to contact me if you have any questions. Procedures Date of Service Date of Service: 04/22/24
[2024-04-22] MEDS: Furosemide 200 MG in 0.9 % Sodium Chloride 80 ML IVCONT (14:13)
--- NOTE | 2024-04-22 14:14 | MHC.CM.PN ---
IMM delivered. Patient lives in a home alone. Ambulates w/ cane. [facility]. Has homemaking services via [facility]. Per patient, [facility] has offered [employer], patient declined. PCP Maryana PAEZ Reports HCP on file is not valid. Has a new HCP naming his son, Koby, as HCA. Copy requested. DP: Goal is home, open to [facility] services if recommended - prefers [facility]. Son to transport. CM will continue to follow.
--- NOTE | 2024-04-22 15:00 | PC.NURSE ---
Pt with +3 pitting edema B/L lower extremities with purple discoloration. Fernandez. Sats 89-91% on 4L, which is pt's baseline. BNP 1832. Echo done on pt. Cardiology consult ordered. Extra dose of IV lasix 4omg ordered and given and lasix drip started at 5mg/hr. Telemonitor placed and order to transfer to [facility]. Report given to Elza PADRON. Transfer to [facility] via wheelchair.
[2024-04-23] VITALS (7 sets, daily range): BP systolic 94–136; BP diastolic 55–79; PULSE 51–95; RESP 12–20; TEMP 36–36.5; O2SAT 90–97
[2024-04-23] MEDS: methylPREDNISolone Sod Succ 40 MG/ML VIAL IVPUSH ×2 (01:44→13:08)
[2024-04-23 07:48] LABS: Anion Gap 14 (12-20); Blood Urea Nitrogen 21 mg/dL (9-16); Calcium 8.7 mg/dL (8.4-10.2); Carbon Dioxide 28 mmol/L (22-29); Chloride 101 mmol/L (96-108); Creatinine Clr Calc Pharmacy 114.9; Estimated Glomerular Filt Rate > 60; Glucose Random 138 mg/dL (60-115); Potassium 3.5 mmol/L (3.3-5.1); Sodium 139 mmol/L (135-145)
[2024-04-23] MEDS: Atorvastatin Calcium 80 MG TABLET PO (08:26)
[2024-04-23] MEDS: Multivitamin TABLET 1 TAB PO (08:26)
[2024-04-23] MEDS: Apixaban 5 MG TABLET PO ×2 (08:26→21:06)
[2024-04-23] MEDS: Cholecalciferol (Vitamin D3) 25 MCG TABLET 50 MCG PO (08:26)
[2024-04-23] MEDS: 0.9 % Sodium Chloride Flush 3 ML SYRINGE IVFLUSH (08:26)
[2024-04-23] MEDS: Calcium Oyster Shell Elemental 500 MG TABLET PO (08:26)
[2024-04-23] MEDS: Aspirin Enteric Coated 81 MG TABLET.DR PO (08:26)
--- NOTE | 2024-04-23 12:13 | MHC.CM.PN ---
Per rounds, pt. is not yet ready for DC. DCP: home with JANUSZ CM to follow for DC needs.
[2024-04-23] MEDS: Furosemide 200 MG in 0.9 % Sodium Chloride 80 ML IVCONT (13:08)
--- NOTE | 2024-04-23 14:18 | HO.PM.IMPN ---
Subjective Subjective Date of Service: 04/23/24 Interval History: chf Review of Systems sob seems similar has leg edema Physical Exam Vital Signs: Vital Signs: Last Vital Signs Temp 96.8 F 04/23/24 07:07 Pulse 70 04/23/24 07:07 Resp 20 04/23/24 07:07 BP 109/79 04/23/24 07:07 Pulse Ox 92 04/23/24 07:07 O2 Del Method Nasal Cannula 04/23/24 07:07 O2 Flow Rate 4 04/23/24 07:07 Oxygen Flow Rate 4 04/21/24 10:50 BMI result Body Mass Index 42.7 Objective Data Active Medications Acetaminophen (Acetaminophen 325 Mg Tablet) 650 mg PO Q6H PRN PRN Reason: Pain, Mild 1-3,fever,headache Apixaban (Apixaban 5 Mg Tablet) 5 mg PO BID [facility] Last Admin: 04/23/24 08:26 Dose: 5 mg Documented By: JAZMYNE Aspirin (Aspirin Enteric Coated 81 Mg Tablet.Dr) 81 mg PO DAILY [facility] Last Admin: 04/23/24 08:26 Dose: 81 mg Documented By: JAZMYNE Atorvastatin Calcium (Atorvastatin Calcium 80 Mg Tablet) 80 mg PO DAILY [facility] Last Admin: 04/23/24 08:26 Dose: 80 mg Documented By: JAZMYNE Calcium Carbonate (Calcium Carbonate 750 Mg Tab.Chew) 750 mg PO Q4H PRN PRN Reason: Heartburn Calcium Carbonate (Calcium Oyster Shell Elemental 500 Mg Tablet) 500 mg PO DAILY [facility] Last Admin: 04/23/24 08:26 Dose: 500 mg Documented By: JAZMYNE Furosemide 200 mg/ Sodium (Chloride) 100 mls @ 2.5 mls/hr IVCONT .Q24H [facility] Last Admin: 04/23/24 13:08 Dose: 5 mg/hr, 2.5 mls/hr Documented By: JAZMYNE Magnesium Hydroxide (Milk Of Magnesia 30 Ml Oral.Susp) 30 ml PO DAILY PRN PRN Reason: Constipation Melatonin (Melatonin 3 Mg Tablet) 6 mg PO BEDTIME PRN PRN Reason: Insomnia Methylprednisolone Sodium Succinate (Methylprednisolone Sod Succ 40 Mg/Ml Vial) 40 mg IVPUSH Q12H [facility] Last Admin: 04/23/24 13:08 Dose: 40 mg Documented By: JAZMYNE Multivitamins/Vitamin C (Multivitamin Tablet) 1 tab PO DAILY [facility] Last Admin: 04/23/24 08:26 Dose: 1 tab Documented By: JAZMYNE Non-Formulary Medication (Umeclidinium-Vilanterol [Anoro Ellipta]) 1 inhalation INHALE RDAILY [facility] Ondansetron HCl (Ondansetron Hcl 4 Mg/2 Ml Vial) 4 mg IVPUSH Q8H PRN PRN Reason: Nausea and Vomiting Sodium Chloride (0.9 % Sodium Chloride Flush 3 Ml Syringe) 3 ml IVFLUSH QSHIFT [facility] Last Admin: 04/23/24 08:26 Dose: 3 ml Documented By: JAZMYNE Vitamin D (Cholecalciferol (Vitamin D3) 25 Mcg Tablet) 50 mcg PO DAILY [facility] Last Admin: 04/23/24 08:26 Dose: 50 mcg Documented By: JAZMYNE Labs 04/22/24 05:53 04/23/24 07:02 Labs: Laboratory Results - last 24 hr 04/23/24 07:02 Anion Gap 14 Estim Creat Clear Calc 114.9 Estimated GFR > 60 Random Glucose 138 H Calcium 8.7 D Microbiology Microbiology Results: Microbiology 04/21/24 12:48 Blood Culture - Preliminary Blood - Venous No growth after 24 hours. 04/21/24 12:48 Blood Culture - Preliminary Blood - Venous No growth after 24 hours. Assessment and Plan (1) Chronic diastolic (congestive) heart failure: Status: Acute Plan 64 year old man with a hx of interstitial lung disease presenting with increased shortness of breath Acute on chronic hypoxic respiratory failure secondary to heart failure with preserved ejection fraction, interstitial lung disease and pneumonia continue Rocephin and azithromycin IV Solu-Medrol, scheduled DuoNebs Echocardiogram plan: continue iv lasix drip moniter i/o Hypotension : improved. continue lasix drip hold losartan for now Thrombocytopenia, unspecified Unknown etiology, may be medication related Follow up platelet count, if worsening consult Hematology Polycythemia Chronic Likely secondary to lung disease Persistent atrial fibrillation Continue beta-baron, Eliquis Hypertension Hold losartan due to soft blood pressures Hyperlipidemia Continue aspirin, statin Morbid obesity. BMI 42.7 Discussed importance of weight management as this may be contributing to worsening of other comorbidities DVT prophylaxis with Eliquis Full code Quality Stroke Does the patient have a stroke diagnosis?: No VTE Prior VTE?: No VTE Risk Level:: Medical - moderate - high VTE Device Contraindication: Treatment Not Indicated VTE Drug Contraindication: N/A - Med Ordered
--- NOTE | 2024-04-23 14:44 | PM.PNCARD ---
Subjective Subjective Date of Service: 04/23/24 Interval history: Seen examined at bedside. Diuresing well with Lasix drip. Of metoprolol and losartan currently. Physical Exam Vital Signs: Last Vital Signs Temp 96.8 F 04/23/24 07:07 Pulse 70 04/23/24 07:07 Resp 20 04/23/24 07:07 BP 109/79 04/23/24 07:07 Pulse Ox 92 04/23/24 07:07 O2 Del Method Nasal Cannula 04/23/24 07:07 O2 Flow Rate 4 04/23/24 07:07 Oxygen Flow Rate 4 04/21/24 10:50 BMI result Body Mass Index 42.7 GENERAL APPEARANCE: in no acute distress, pleasant. NECK: no carotid bruit, positive jugular venous distention to the angle of jaw. SKIN: no suspicious lesions, warm and dry. HEART: no murmurs, irregular rate and rhythm. Bradycardic. LUNGS: clear to auscultation bilaterally. ABDOMEN: soft, nontender. Significant distention with abdominal wall edema. EXTREMITIES: 3+ edema bilaterally. PERIPHERAL PULSES: equal. NEUROLOGIC: No gross deficits, AAO X 3 Objective Labs and Meds 04/22/24 05:53 04/23/24 07:02 Lab results: Laboratory Results - last 24 hr 04/23/24 07:02 Sodium 139 Potassium 3.5 Chloride 101 Carbon Dioxide 28 Anion Gap 14 BUN 21 H Creatinine 1.02 Estim Creat Clear Calc 114.9 Estimated GFR > 60 Random Glucose 138 H Calcium 8.7 D Progress Note: A&P Assessment and plan (1) Right heart failure: Status: Acute Plan [age] year gentleman with acute right heart failure on background of COPD and pulmonary hypertension. Lungs significant volume overload. RV is significantly dilated and septum is pushed toward the left ventricle and LV cavity is D shaped. Continue diuretics. Adding spironolactone 25 mg daily. This can be titrated to b.i.d. dosing over the next day to 2. Avoid beta-blockers and no calcium channel baron especially diltiazem and verapamil. On anticoagulation with Eliquis for atrial fibrillation. Thank you for allowing me to participate in the care of your patient. Please feel free to contact me if you have any questions. Time Spent With Patient Time: Total time managing care of this patient today ____ minutes. Progress Note: Quality Stroke Does the patient have a stroke diagnosis?: No Procedures Date of Service Date of Service: 04/23/24
[2024-04-23] MEDS: Spironolactone 25 MG TABLET PO (17:02)
[2024-04-23] MEDS: ACTUATION BL INHALE (17:50)
[2024-04-23] MEDS: UMECLIDINIUM VILANTEROL INHALE (17:50)
[2024-04-23 19:09] LABS: B Type Natriuretic Peptide 1828 pg/mL (<100)
[2024-04-24] VITALS (8 sets, daily range): BP systolic 100–140; BP diastolic 71–81; PULSE 52–94; RESP 14–18; TEMP 36.1–36.7; O2SAT 91–97
[2024-04-24] MEDS: Potassium Chloride Packet 20 MEQ PACKET PO (00:25)
[2024-04-24] MEDS: methylPREDNISolone Sod Succ 40 MG/ML VIAL IVPUSH ×2 (00:25→14:16)
[2024-04-24] MEDS: Magnesium Sulfate/H2O 2 GM/50 ML PIGGYBACK IV (00:25)
[2024-04-24] MEDS: 0.9 % Sodium Chloride Flush 3 ML SYRINGE IVFLUSH ×2 (00:26→09:25)
[2024-04-24] MEDS: Spironolactone 25 MG TABLET PO ×2 (09:24→20:49)
[2024-04-24] MEDS: ACTUATION BL INHALE (09:25)
[2024-04-24] MEDS: Cholecalciferol (Vitamin D3) 25 MCG TABLET 50 MCG PO (09:25)
[2024-04-24] MEDS: Calcium Oyster Shell Elemental 500 MG TABLET PO (09:25)
[2024-04-24] MEDS: Multivitamin TABLET 1 TAB PO (09:25)
[2024-04-24] MEDS: UMECLIDINIUM VILANTEROL INHALE (09:25)
[2024-04-24] MEDS: Apixaban 5 MG TABLET PO ×2 (09:25→20:49)
[2024-04-24] MEDS: Aspirin Enteric Coated 81 MG TABLET.DR PO (09:25)
[2024-04-24] MEDS: Atorvastatin Calcium 80 MG TABLET PO (09:25)
[2024-04-24] MEDS: guaiFENesin LA 600 MG TAB.ER.12H PO ×2 (09:44→20:49)
[2024-04-24 10:31] LABS: Anion Gap 13 (12-20); Blood Urea Nitrogen 22 mg/dL (9-16); Calcium 8.7 mg/dL (8.4-10.2); Carbon Dioxide 29 mmol/L (22-29); Chloride 100 mmol/L (96-108); Creatinine Clr Calc Pharmacy 118.4; Estimated Glomerular Filt Rate > 60; Glucose Random 214 mg/dL (60-115); Magnesium 2.4 mg/dL (1.6-2.6); Potassium 3.7 mmol/L (3.3-5.1); Sodium 138 mmol/L (135-145)
[2024-04-24 10:35] LABS: B Type Natriuretic Peptide 2189 pg/mL (<100)
--- NOTE | 2024-04-24 11:18 | PM.PNCARD ---
Subjective Subjective Date of Service: 04/24/24 Interval history: Seen examined at bedside. Improving clinically. Still significantly volume overloaded. Physical Exam Vital Signs: Last Vital Signs Temp 98.1 F 04/24/24 07:11 Pulse 94 04/24/24 07:11 Resp 18 04/24/24 07:11 BP 128/81 04/24/24 09:24 Pulse Ox 92 04/24/24 07:11 O2 Del Method Nasal Cannula 04/24/24 07:11 O2 Flow Rate 4 04/24/24 07:11 Oxygen Flow Rate 4 04/21/24 10:50 BMI result Body Mass Index 42.7 GENERAL APPEARANCE: in no acute distress, pleasant. NECK: no carotid bruit, positive jugular venous distention to the angle of jaw. SKIN: no suspicious lesions, warm and dry. HEART: no murmurs, irregular rate and rhythm. Bradycardic. LUNGS: clear to auscultation bilaterally. ABDOMEN: soft, nontender. Significant distention with abdominal wall edema. EXTREMITIES: 3+ edema bilaterally. PERIPHERAL PULSES: equal. NEUROLOGIC: No gross deficits, AAO X 3 Objective Labs and Meds 04/22/24 05:53 04/24/24 10:04 Lab results: Laboratory Results - last 24 hr 04/23/24 04/24/24 18:36 10:04 Sodium 138 Potassium 3.7 Chloride 100 Carbon Dioxide 29 Anion Gap 13 BUN 22 H Creatinine 0.99 Estim Creat Clear Calc 118.4 Estimated GFR > 60 Random Glucose 214 H Calcium 8.7 Magnesium 2.4 B-Natriuretic Peptide 1828 H 2189 H Progress Note: A&P Assessment and plan (1) Right heart failure: Status: Acute Plan [age] year gentleman with acute right heart failure on background of COPD and pulmonary hypertension. Lungs significant volume overload. RV is significantly dilated and septum is pushed toward the left ventricle and LV cavity is D shaped. Diuresing well and blood pressure is better after stopping beta-blockers. Give metolazone 5 mg x 1 and increase the Lasix drip to 7.5 milligram/hour. Increase spironolactone to 25 mg twice a day. On anticoagulation with Eliquis for atrial fibrillation. Avoid beta-blockers and calcium channel baron especially diltiazem and verapamil. Thank you for allowing me to participate in the care of your patient. Please feel free to contact me if you have any questions. Time Spent With Patient Time: Total time managing care of this patient today ____ minutes. Progress Note: Quality Stroke Does the patient have a stroke diagnosis?: No Procedures Date of Service Date of Service: 04/24/24
[2024-04-24] MEDS: Potassium Chloride ER 20 MEQ TAB.ER.PRT PO (14:16)
[2024-04-24] MEDS: metOLazone 5 MG TABLET PO (14:16)
[2024-04-24] MEDS: Capsaicin 0.025% Cream 60 GM TUBE 1 APPL TOPICAL (14:16)
[2024-04-24] MEDS: Furosemide 200 MG in 0.9 % Sodium Chloride 80 ML IVCONT (15:20)
[2024-04-24] MEDS: Pregabalin 25 MG CAPSULE PO ×2 (15:20→20:49)
--- NOTE | 2024-04-24 17:28 | HO.PM.IMPN ---
Subjective Subjective Date of Service: 04/24/24 Interval History: chf episode of 9 beat nsvt Review of Systems Shortness of breath improving Denies any chest pain or palpitations Leg edema somewhat similar Physical Exam Vital Signs: Vital Signs: Last Vital Signs Temp 97.4 F 04/24/24 15:41 Pulse 62 04/24/24 15:41 Resp 18 04/24/24 15:41 BP 108/78 04/24/24 15:41 Pulse Ox 91 L 04/24/24 15:41 O2 Del Method Nasal Cannula 04/24/24 15:41 O2 Flow Rate 4 04/24/24 15:41 Oxygen Flow Rate 4 04/21/24 10:50 BMI result Body Mass Index 42.7 Appearance: Alert.? Oriented X3.? cvs: rrr, [id number]. res: air entry improvin abd: no rebound or guarding ,nt, bs present. ext pulses present , no cyanosis ,edema3+. neuro: axo3 , nonfocal. Objective Data Active Medications Acetaminophen (Acetaminophen 325 Mg Tablet) 650 mg PO Q6H [facility] Last Admin: 04/24/24 15:21 Dose: Not Given Documented By: JAZMYNE Non-Admin Reason: Patient Refused Apixaban (Apixaban 5 Mg Tablet) 5 mg PO BID [facility] Last Admin: 04/24/24 09:25 Dose: 5 mg Documented By: JAZMYNE Aspirin (Aspirin Enteric Coated 81 Mg Tablet.Dr) 81 mg PO DAILY [facility] Last Admin: 04/24/24 09:25 Dose: 81 mg Documented By: JAZMYNE Atorvastatin Calcium (Atorvastatin Calcium 80 Mg Tablet) 80 mg PO DAILY [facility] Last Admin: 04/24/24 09:25 Dose: 80 mg Documented By: JAZMYNE Calcium Carbonate (Calcium Carbonate 750 Mg Tab.Chew) 750 mg PO Q4H PRN PRN Reason: Heartburn Calcium Carbonate (Calcium Oyster Shell Elemental 500 Mg Tablet) 500 mg PO DAILY [facility] Last Admin: 04/24/24 09:25 Dose: 500 mg Documented By: JAZMYNE Guaifenesin (Guaifenesin La 600 Mg Tab.Er.12h) 600 mg PO BID [facility] Last Admin: 04/24/24 09:44 Dose: 600 mg Documented By: JAZMYNE Furosemide 200 mg/ Sodium (Chloride) 100 mls @ 3.75 mls/hr IVCONT .Q24H [facility] Last Admin: 04/24/24 15:20 Dose: 5 mg/hr, 2.5 mls/hr Documented By: JAZMYNE Magnesium Hydroxide (Milk Of Magnesia 30 Ml Oral.Susp) 30 ml PO DAILY PRN PRN Reason: Constipation Melatonin (Melatonin 3 Mg Tablet) 6 mg PO BEDTIME PRN PRN Reason: Insomnia Methylprednisolone Sodium Succinate (Methylprednisolone Sod Succ 40 Mg/Ml Vial) 40 mg IVPUSH Q12H [facility] Last Admin: 04/24/24 14:16 Dose: 40 mg Documented By: JAZMYNE Multivitamins/Vitamin C (Multivitamin Tablet) 1 tab PO DAILY [facility] Last Admin: 04/24/24 09:25 Dose: 1 tab Documented By: JAZMYNE Pt Own(Umeclidinium- Vilanterol [Anoro Ellipta] 62.5-25 Mcg /Actuation Bl 1 inhalation INHALE RDAILY [facility] Last Admin: 04/24/24 09:25 Dose: 1 inhalation Documented By: JAZMYNE Ondansetron HCl (Ondansetron Hcl 4 Mg/2 Ml Vial) 4 mg IVPUSH Q8H PRN PRN Reason: Nausea and Vomiting Pregabalin (Pregabalin 25 Mg Capsule) 25 mg PO BID [facility] Last Admin: 04/24/24 15:20 Dose: 25 mg Documented By: JAZMYNE Sodium Chloride (0.9 % Sodium Chloride Flush 3 Ml Syringe) 3 ml IVFLUSH QSHIFT [facility] Last Admin: 04/24/24 15:33 Dose: Not Given Documented By: JAZMYNE Non-Admin Reason: IV Running Spironolactone (Spironolactone 25 Mg Tablet) 25 mg PO BID [facility]; Protocol Vitamin D (Cholecalciferol (Vitamin D3) 25 Mcg Tablet) 50 mcg PO DAILY [facility] Last Admin: 04/24/24 09:25 Dose: 50 mcg Documented By: JAZMYNE Labs 04/22/24 05:53 04/24/24 10:04 Labs: Laboratory Results - last 24 hr 04/23/24 04/24/24 18:36 10:04 Anion Gap 13 Estim Creat Clear Calc 118.4 Estimated GFR > 60 Random Glucose 214 H Calcium 8.7 Magnesium 2.4 B-Natriuretic Peptide 1828 H 2189 H Microbiology Microbiology Results: Microbiology 04/21/24 12:48 Blood Culture - Preliminary Blood - Venous No growth after 48 hours. 04/21/24 12:48 Blood Culture - Preliminary Blood - Venous No growth after 48 hours. Assessment and Plan (1) Chronic diastolic (congestive) heart failure: Status: Acute Plan 64 year old man with a hx of interstitial lung disease presenting with increased shortness of breath Acute on chronic hypoxic respiratory failure secondary to heart failure with preserved ejection fraction, interstitial lung disease and pneumonia continue Rocephin and azithromycin IV Solu-Medrol, scheduled DuoNebs Echocardiogram plan: continue iv lasix drip moniter i/o 7 liter negative nsvt episode : potassium is 3.7 mag 2.4 asymptomatic added potassium po. moniter tele Hypotension : improved. continue lasix drip hold losartan for now Thrombocytopenia, unspecified Unknown etiology, may be medication related Follow up platelet count, if worsening consult Hematology Polycythemia Chronic Likely secondary to lung disease Persistent atrial fibrillation Continue beta-baron, Eliquis Hypertension Hold losartan due to soft blood pressures Hyperlipidemia Continue aspirin, statin Morbid obesity. BMI 42.7 Discussed importance of weight management as this may be contributing to worsening of other comorbidities DVT prophylaxis with Eliquis Full code Quality Stroke Does the patient have a stroke diagnosis?: No VTE Prior VTE?: No VTE Risk Level:: Medical - moderate - high VTE Device Contraindication: Treatment Not Indicated VTE Drug Contraindication: N/A - Med Ordered
[2024-04-25] VITALS (9 sets, daily range): BP systolic 111–136; BP diastolic 65–93; PULSE 61–99; RESP 14–20; TEMP 36.1–37.2; O2SAT 86–94
[2024-04-25] MEDS: methylPREDNISolone Sod Succ 40 MG/ML VIAL IVPUSH ×2 (01:26→13:18)
--- NOTE | 2024-04-25 07:00 | CA_ITS ---
Transthoracic Echocardiogram Patient (Last, First, Middle): Ketan Cho R Gender: Male Date of : 1960 Age: 64 Procedure Date: 04/25/2024 Procedure Type: Transthoracic Echocardiogram [place] [facility] [place]: 185.42 cm Weight: 139.71 kg BSA: 2.59 m2 Heart Rate: 81 bpm BP: 136 / 71 mmHg Inspector Rubber Stamp Die: SB Referring MD: Alex Bruce MD Symptoms: Severe RV dysfunction Study Quality: Adequate/limited echo ordered ECG Rhythm: Sinus Conclusions: - Decreased left ventricular cavity size. The left ventricular systolic function is normal. There is a flattened septum in systole and diastole consistent with right ventricular pressure and volume overload. - Severely increased right ventricular cavity size. There is moderate to severely decreased right ventricular systolic function. - Respiratory interdependence noted. Findings Procedure Information The quality of the study was technically difficult. The study quality is limited by patients body habitus and limitations of a portable exam. Left Ventricle Decreased left ventricular cavity size. The left ventricular systolic function is normal. There is a flattened septum in systole and diastole consistent with right ventricular pressure and volume overload. Right Ventricle Severely increased right ventricular cavity size. There is moderate to severely decreased right ventricular systolic function. Mitral Valve Previous mitral valve repair. MG across mitral valve 4 mm Hg HR 88/min. Tricuspid Valve The tricuspid valve was not well visualized. There is moderate tricuspid valve regurgitation. The right ventricular systolic pressure is 42 mmHg. Significantly elevated right atrial pressure. Mild pulmonary hypertension is present. Venous The inferior vena cava is dilated and does not collapse with inspiration. Pericardium/Pleural There is no evidence of pericardial effusion. Prior Study Comparison No significant change compared to prior study dated: 04/22/2024. Measurements 2D Linear Measurements IVSd: 0.86 0.6-0.9/0.6-1.0 cm LVIDd: 5.88 3.9-5.3/4.2-5.9 cm LVIDd Index: 2.27 2.4-3.2/2.2-3.1 cm/m2 LVIDs: 3.05 2.0-3.6 cm LVPWd: 1.01 0.7-1.1 cm LV Mass: 273.05 67-162/88-224 g LV Mass Index: 105.42 43-95/49-115 g/m2 Mitral Valve MV VTI: 0.41 MV Pk Terry: 1.52 MV Mn Terry: 1.02 MV Pk Grad: 9.00 MV Mn Grad: 5.00 Right Ventricle TAPSE (mm): 11.60 TVS' Terry: 9.46 Tricuspid Valve TR Pk Terry: 2.62 TR Pk Grad: 27.00 RA Press: 15.00 RVSP: 42.00 Updated in Other Vendor System with Status of Final Alex Bruce MD electronically signed on 04/25/2024 3:39:18 PM with status of Final
[2024-04-25] MEDS: Pregabalin 25 MG CAPSULE PO (08:16)
[2024-04-25] MEDS: Aspirin Enteric Coated 81 MG TABLET.DR PO (08:16)
[2024-04-25] MEDS: Apixaban 5 MG TABLET PO ×2 (08:16→20:38)
[2024-04-25] MEDS: Spironolactone 25 MG TABLET PO (08:16)
[2024-04-25] MEDS: Calcium Oyster Shell Elemental 500 MG TABLET PO (08:16)
[2024-04-25] MEDS: 0.9 % Sodium Chloride Flush 3 ML SYRINGE IVFLUSH ×2 (08:16→18:04)
[2024-04-25] MEDS: Multivitamin TABLET 1 TAB PO (08:17)
[2024-04-25] MEDS: Atorvastatin Calcium 80 MG TABLET PO (08:17)
[2024-04-25] MEDS: guaiFENesin LA 600 MG TAB.ER.12H PO ×2 (08:17→20:38)
[2024-04-25] MEDS: Cholecalciferol (Vitamin D3) 25 MCG TABLET 50 MCG PO (08:17)
[2024-04-25] MEDS: ACTUATION BL INHALE (08:18)
[2024-04-25] MEDS: UMECLIDINIUM VILANTEROL INHALE (08:18)
--- NOTE | 2024-04-25 08:38 | HO.PM.IMPN ---
Subjective Subjective Date of Service: 04/25/24 Interval History: chf Review of Systems sob improving has dizziness Review of Systems: Yes all other systems are reviewed and are negative Physical Exam Vital Signs: Vital Signs: Last Vital Signs Temp 97.2 F 04/25/24 07:16 Pulse 99 04/25/24 07:16 Resp 20 04/25/24 07:16 BP 133/93 H 04/25/24 07:16 Pulse Ox 94 04/25/24 07:16 O2 Del Method BiPAP 04/25/24 07:16 O2 Flow Rate 6 04/24/24 20:00 Oxygen Flow Rate 4 04/21/24 10:50 BMI result Body Mass Index 42.7 Appearance: Alert.? Oriented X3.? cvs: rrr, [id number]. res: air entry improvin abd: no rebound or guarding ,nt, bs present. ext pulses present , no cyanosis ,edema3+. neuro: axo3 , nonfocal. Objective Data Active Medications Acetaminophen (Acetaminophen 325 Mg Tablet) 650 mg PO Q6H [facility] Last Admin: 04/25/24 08:18 Dose: Not Given Documented By: IVANIA Non-Admin Reason: Patient Refused Apixaban (Apixaban 5 Mg Tablet) 5 mg PO BID [facility] Last Admin: 04/25/24 08:16 Dose: 5 mg Documented By: IVANIA Aspirin (Aspirin Enteric Coated 81 Mg Tablet.Dr) 81 mg PO DAILY [facility] Last Admin: 04/25/24 08:16 Dose: 81 mg Documented By: IVANIA Atorvastatin Calcium (Atorvastatin Calcium 80 Mg Tablet) 80 mg PO DAILY [facility] Last Admin: 04/25/24 08:17 Dose: 80 mg Documented By: IVANIA Calcium Carbonate (Calcium Carbonate 750 Mg Tab.Chew) 750 mg PO Q4H PRN PRN Reason: Heartburn Calcium Carbonate (Calcium Oyster Shell Elemental 500 Mg Tablet) 500 mg PO DAILY [facility] Last Admin: 04/25/24 08:16 Dose: 500 mg Documented By: IVANIA Guaifenesin (Guaifenesin La 600 Mg Tab.Er.12h) 600 mg PO BID [facility] Last Admin: 04/25/24 08:17 Dose: 600 mg Documented By: IVANIA Furosemide 200 mg/ Sodium (Chloride) 100 mls @ 3.75 mls/hr IVCONT .Q24H [facility] Last Infusion: 04/24/24 19:38 Dose: 7.5 mg/hr, 3.75 mls/hr Documented By: JAZMYNE Magnesium Hydroxide (Milk Of Magnesia 30 Ml Oral.Susp) 30 ml PO DAILY PRN PRN Reason: Constipation Melatonin (Melatonin 3 Mg Tablet) 6 mg PO BEDTIME PRN PRN Reason: Insomnia Methylprednisolone Sodium Succinate (Methylprednisolone Sod Succ 40 Mg/Ml Vial) 40 mg IVPUSH Q12H [facility] Last Admin: 04/25/24 01:26 Dose: 40 mg Documented By: JACK Multivitamins/Vitamin C (Multivitamin Tablet) 1 tab PO DAILY [facility] Last Admin: 04/25/24 08:17 Dose: 1 tab Documented By: IVANIA Pt Own(Umeclidinium- Vilanterol [Anoro Ellipta] 62.5-25 Mcg /Actuation Bl 1 inhalation INHALE RDAILY [facility] Last Admin: 04/25/24 08:18 Dose: 1 inhalation Documented By: IVANIA Comments: Pt uses at bedside Ondansetron HCl (Ondansetron Hcl 4 Mg/2 Ml Vial) 4 mg IVPUSH Q8H PRN PRN Reason: Nausea and Vomiting Pregabalin (Pregabalin 25 Mg Capsule) 25 mg PO BID [facility] Last Admin: 04/25/24 08:16 Dose: 25 mg Documented By: IVANIA Sodium Chloride (0.9 % Sodium Chloride Flush 3 Ml Syringe) 3 ml IVFLUSH QSHIFT [facility] Last Admin: 04/25/24 08:16 Dose: 3 ml Documented By: IVANIA Spironolactone (Spironolactone 25 Mg Tablet) 25 mg PO BID [facility]; Protocol Last Admin: 04/25/24 08:16 Dose: 25 mg Documented By: IVANIA Vitamin D (Cholecalciferol (Vitamin D3) 25 Mcg Tablet) 50 mcg PO DAILY [facility] Last Admin: 04/25/24 08:17 Dose: 50 mcg Documented By: IVANIA Labs 04/22/24 05:53 04/25/24 08:51 Labs: Laboratory Results - last 24 hr 04/24/24 10:04 Anion Gap 13 Estim Creat Clear Calc 118.4 Estimated GFR > 60 Random Glucose 214 H Calcium 8.7 Magnesium 2.4 B-Natriuretic Peptide 2189 H Assessment and Plan (1) Chronic diastolic (congestive) heart failure: Status: Acute Plan 64 year old man with a hx of interstitial lung disease presenting with increased shortness of breath Acute on chronic hypoxic respiratory failure secondary to heart failure with preserved ejection fraction, interstitial lung disease and pneumonia continue Rocephin and azithromycin ,prednisone , scheduled DuoNebs. Echocardiogram: Echocardiography has shown severe RV dysfunction with respiratory interdependence of interventricular septum with small left ventricular cavity size. pulmonary hypertension in the past but his PA pressures appear to be normal at this stage which is due to poor RV contractility. added some digoxin for increasing contractility and rate control. Toprol and Cardizem are discontinued and can not be resumed. patient had lightheadness -possible due to overdiuresis. plan: hold iv lasix drip/ bp meds . moniter i/o 15 Liter negative . hold lasix drip,given 1 liter fluids cardiology following continue nebs, steriods switched po,oxygen (uses home oxygen -uses 4-6liter at home). nsvt episode yesterday: potassium is 3.5 mag 2.4 asymptomatic added potassium po., moniter electrolytes, moniter tele . Thrombocytopenia, unspecified Unknown etiology, may be medication related Follow up platelet count, if worsening consult Hematology Polycythemia Chronic Likely secondary to lung disease Persistent atrial fibrillation hold beta-baorn. added digoxin,Eliquis Hypertension Hold losartan due to soft blood pressures Hyperlipidemia Continue aspirin, statin Morbid obesity. BMI 42.7 Discussed importance of weight management as this may be contributing to worsening of other comorbidities DVT prophylaxis with Eliquis Full code Quality Stroke Does the patient have a stroke diagnosis?: No VTE Prior VTE?: No VTE Risk Level:: Medical - moderate - high VTE Device Contraindication: Treatment Not Indicated VTE Drug Contraindication: N/A - Med Ordered
[2024-04-25 09:36] LABS: Anion Gap 16 (12-20); Blood Urea Nitrogen 22 mg/dL (9-16); Calcium 9.5 mg/dL (8.4-10.2); Carbon Dioxide 30 mmol/L (22-29); Chloride 95 mmol/L (96-108); Estimated Glomerular Filt Rate > 60; Glucose Random 138 mg/dL (60-115); Magnesium 2.2 mg/dL (1.6-2.6); Potassium 3.5 mmol/L (3.3-5.1); Sodium 137 mmol/L (135-145)
[2024-04-25 09:38] LABS: B Type Natriuretic Peptide 1927 pg/mL (<100)
[2024-04-25 10:15] LABS: Estimated Average Glucose 123 mg/dL; Hemoglobin A1c % 5.9 % (<6.0)
[2024-04-25] MEDS: Albumin Human 25 % 100 ML IV ×3 (10:39→23:28)
[2024-04-25] MEDS: Potassium Chloride ER 20 MEQ TAB.ER.PRT PO (10:46)
[2024-04-25] MEDS: 0.9 % Sodium Chloride 1,000 ML 500 ML IVCONT (10:47)
--- NOTE | 2024-04-25 12:01 | PM.PNCARD ---
Subjective Subjective Date of Service: 04/25/24 Interval history: Seen examined at bedside. He has 7 L negative today. He was not feeling right when I enter the room and was complaining of dizziness and was very apprehensive. He was laid flat in bed and was given a fluid bolus and he started improving. We did a bedside echocardiogram which showed significant RV dilation with compression of left ventricle. This is quite advanced issue. His PA pressures are actually normal by echocardiography or this could be a byproduct of poor RV function that he is unable to generate any pressure. Physical Exam Vital Signs: Last Vital Signs Temp 97.8 F 04/25/24 11:05 Pulse 75 04/25/24 11:05 Resp 18 04/25/24 11:05 BP 136/71 04/25/24 11:05 Pulse Ox 92 04/25/24 11:05 O2 Del Method Nasal Cannula 04/25/24 11:05 O2 Flow Rate 4 04/25/24 11:05 Oxygen Flow Rate 4 04/21/24 10:50 BMI result Body Mass Index 42.7 GENERAL APPEARANCE: in no acute distress, pleasant. NECK: no carotid bruit, mild JVD. SKIN: no suspicious lesions, warm and dry. HEART: no murmurs, irregular rate and rhythm. Bradycardic. LUNGS: clear to auscultation bilaterally. ABDOMEN: soft, nontender. EXTREMITIES: 1-2 + edema bilaterally. PERIPHERAL PULSES: equal. NEUROLOGIC: No gross deficits, AAO X 3 Objective Labs and Meds 04/22/24 05:53 04/25/24 08:51 Lab results: Laboratory Results - last 24 hr 04/22/24 04/25/24 05:53 08:51 Sodium 137 Potassium 3.5 Chloride 95 L Carbon Dioxide 30 H Anion Gap 16 BUN 22 H Creatinine 1.01 Estim Creat Clear Calc 116.0 Estimated GFR > 60 Random Glucose 138 H Estimat Average Glucose 123 Hemoglobin A1c % 5.9 Calcium 9.5 D Magnesium 2.2 B-Natriuretic Peptide 1927 H Progress Note: A&P Assessment and plan (1) Right heart failure: Status: Acute Plan [age] year gentleman with background history of mitral valve repair, chronic diastolic heart failure, diabetes, hypertension, COPD and pulmonary hypertension presenting with significant volume overload. Echocardiography has shown severe RV dysfunction with respiratory interdependence of interventricular septum with small left ventricular cavity size. The LV cavity is D shaped. He was being diuresed and was improving slowly and was given some metolazone yesterday. With this strategy he had 7 L negative. Today morning he actually looked worse. He was not hypotensive but was very dizzy and apprehensive. He was laid flat in bed and was given fluid bolus and then given some albumin which improved his symptoms. We will hold further diuretics on him repeat echo done which has reviewed with the tech at bedside and his right ventricular continues to be significantly dilated and left ventricular cavity is very small in size with significant compression from the right ventricle. This is fairly advanced issue. He did have pulmonary hypertension in the past but his PA pressures appear to be normal at this stage which is due to poor RV contractility. I think we will try some digoxin for increasing contractility and rate control. Toprol and Cardizem are discontinued and can not be resumed. His I's and O's have to be balanced and he needs to be in a positive balance till tomorrow. He has advanced RV issues at this point. He said he was aware of it previously and I offered him to be transferred to [facility] but he wishes not to do that. Thank you for allowing me to participate in the care of your patient. Please feel free to contact me if you have any questions. Time Spent With Patient Time: Total time managing care of this patient today ____ minutes. Progress Note: Quality Stroke Does the patient have a stroke diagnosis?: No Procedures Date of Service Date of Service: 04/25/24
--- NOTE | 2024-04-25 12:15 | MHC.CM.PN ---
Per rounds, pt is not ready to DC, he is feeling light headed, is requiring 7L supplemental O2. CM to follow for DC needs.
[2024-04-25] MEDS: Digoxin 0.5 MG/2 ML AMPUL 0.25 MG IVPUSH ×2 (13:18→18:00)
--- NOTE | 2024-04-25 14:13 | ECG_ITS ---
Test Reason : per cardio, dizzy Blood Pressure : */* mmHG Vent. Rate : 97 BPM Atrial Rate : 52 BPM P-R Int : * ms QRS Dur : 128 ms QT Int : 378 ms P-R-T Axes : * 133 -41 degrees QTcB Int : 480 ms Atrial fibrillation Right bundle branch block Abnormal ECG When compared with ECG of 21-Apr-2024 11:05, Premature ventricular complexes Present Heart rate has increased Referred By: Alex Bruce Electronically Signed By: Alex Bruce
--- NOTE | 2024-04-25 14:48 | P.CONPL_ITS ---
History of Present Illness History of Present Illness Consult date: 04/25/24 Chief complaint: Right heart failure Narrative: 64-year-old gentleman with underlying history of COPD on supplemental oxygen 4-6 L, cor pulmonale, followed by Dr. Lang suboptimal compliance with diuretic therapy admitted on 04/21/2024 with worsening dyspnea and hypoxia. Patient treated with empiric diuresis with slow improvement in his symptoms. Now 16 L negative since admission. Review of Systems 2 Constitutional: Constitutional: Denies daytime sleepiness, Denies excessive sweating, Denies fatigue, Denies fever(s), Denies lethargy, Denies malaise, Denies night sweats, Denies snoring and Denies weight loss Eyes: Eyes: Denies blurry vision and Denies itchy eyes ENT: Denies nasal congestion, Denies post nasal drip, Denies sinus pain, Denies sinus pressure and Denies other ( Thrush) Cardiovascular: Cardiovascular: Denies chest pain, Reports pedal edema, Denies dyspnea, Reports dyspnea on exertion, Reports orthopnea and Reports paroxysmal nocturnal dyspnea Respiratory: Respiratory: Denies cough, Denies hemoptysis, Denies excessive phlegm production, Denies dyspnea, Reports dyspnea on exertion, Denies snoring and Denies wheezing Gastrointestinal: Gastrointestinal: Denies abdominal pain and Denies heartburn Musculoskeletal: Musculoskeletal: Denies myalgias, Denies arthralgias and Denies joint swelling Integumentary/Breasts: Skin/Breast: Denies rash Neurologic: Denies memory loss and Denies seizure-like activity Psychiatric: Psychiatric: Denies abnormal sleep pattern, Denies anxiety and Denies memory loss Endocrine: Endocrine: Denies excessive sweating, Denies fatigue and Denies heat intolerance Hematologic/Lymphatic: Hematologic/Lymphatic: Denies easy bruising Allergic/Immunologic: Allergic/Immunologic: Denies itchy eyes, Denies seasonal rhinorrhea and Denies wheezing PMFSH Past Medical History Medical History (Updated 04/25/24 @ 15:01 by Ashwin Rider MD) Mitral stenosis Pulmonary hypertension SOB (shortness of breath) Cor pulmonale Dyspnea Oxygen dependent Chronic hypoxemic respiratory failure Sleep apnea COPD (chronic obstructive pulmonary disease) Hyperlipidemia Atrial fibrillation Hypertension, essential Current use of anticoagulant therapy Family History Family History Father No problems noted. Mother No problems noted. Brother No problems noted. Sister Mental health disorder Sister No problems noted. Sister No problems noted. Sister No problems noted. Son No problems noted. Daughter No problems noted. Surgical History Surgical History History of carpal tunnel surgery History of colonoscopy History of thumb surgery History of mitral valve repair History of umbilical hernia History of tonsillectomy History of vasectomy Social History Social History Household Members: None Housing: Apartment Do you presently have visiting nurse or other home services: Yes (home care twice a week) Alcohol intake: former Patient Tobacco Use Status: Former Tobacco user Tobacco use type: Cigarette Years Smoked: 25 e-Cigarette/Vaping Use: Never Used Second Hand Smoke Exposure: Yes (cigar smoke) Substance Use Type: Marijuana Advance Directives Date on File: 07/12/20 service: No Current occupational status: disabled Cognitive needs: No Hearing needs: No Vision needs: Yes Meds Allergies Allergy/AdvReac Type Severity Reaction Status Date / Time ciprofloxacin [From CIPRO] Allergy Intermediate DIFFICULTY Verified 04/21/24 10:51 BREATHING vancomycin [VANCOMYCIN] Allergy Intermediate RASH, rash Verified 04/21/24 10:51 over whole body Active Medications: Current Medications Acetaminophen (Acetaminophen 325 Mg Tablet) 650 mg PO Q6H [facility] Last Admin: 04/25/24 08:18 Dose: Not Given Apixaban (Apixaban 5 Mg Tablet) 5 mg PO BID [facility] Last Admin: 04/25/24 08:16 Dose: 5 mg Aspirin (Aspirin Enteric Coated 81 Mg Tablet.) 81 mg PO DAILY [facility] Last Admin: 04/25/24 08:16 Dose: 81 mg Atorvastatin Calcium (Atorvastatin Calcium 80 Mg Tablet) 80 mg PO DAILY [facility] Last Admin: 04/25/24 08:17 Dose: 80 mg Calcium Carbonate (Calcium Carbonate 750 Mg Tab.Chew) 750 mg PO Q4H PRN PRN Reason: Heartburn Calcium Carbonate (Calcium Oyster Shell Elemental 500 Mg Tablet) 500 mg PO DAILY [facility] Last Admin: 04/25/24 08:16 Dose: 500 mg Digoxin (Digoxin 0.5 Mg/2 Ml Ampul) 0.25 mg IVPUSH Q6H [facility]; Protocol Stop: 04/25/24 18:46 Last Admin: 04/25/24 13:18 Dose: 0.25 mg Guaifenesin (Guaifenesin La 600 Mg Tab.Er.12h) 600 mg PO BID [facility] Last Admin: 04/25/24 08:17 Dose: 600 mg Albumin Human (Kedbumin 25 %) 100 mls @ 100 mls/hr IV Q6H [facility] Stop: 04/26/24 05:44 Last Infusion: 04/25/24 11:53 Dose: Infused Furosemide 200 mg/ Sodium (Chloride) 100 mls @ 2.5 mls/hr IVCONT .Q24H [facility] Magnesium Hydroxide (Milk Of Magnesia 30 Ml Oral.Susp) 30 ml PO DAILY PRN PRN Reason: Constipation Melatonin (Melatonin 3 Mg Tablet) 6 mg PO BEDTIME PRN PRN Reason: Insomnia Methylprednisolone Sodium Succinate (Methylprednisolone Sod Succ 40 Mg/Ml Vial) 40 mg IVPUSH Q12H [facility] Last Admin: 04/25/24 13:18 Dose: 40 mg Multivitamins/Vitamin C (Multivitamin Tablet) 1 tab PO DAILY [facility] Last Admin: 04/25/24 08:17 Dose: 1 tab Pt Own(Umeclidinium- Vilanterol [Anoro Ellipta] 62.5-25 Mcg /Actuation Bl 1 inhalation INHALE RDAILY [facility] Last Admin: 04/25/24 08:18 Dose: 1 inhalation Ondansetron HCl (Ondansetron Hcl 4 Mg/2 Ml Vial) 4 mg IVPUSH Q8H PRN PRN Reason: Nausea and Vomiting Pregabalin (Pregabalin 25 Mg Capsule) 25 mg PO BID [facility] Last Admin: 04/25/24 08:16 Dose: 25 mg Sodium Chloride (0.9 % Sodium Chloride Flush 3 Ml Syringe) 3 ml IVFLUSH QSHIFT [facility] Last Admin: 04/25/24 08:16 Dose: 3 ml Spironolactone (Spironolactone 25 Mg Tablet) 25 mg PO BID [facility]; Protocol Last Admin: 04/25/24 08:16 Dose: 25 mg Vitamin D (Cholecalciferol (Vitamin D3) 25 Mcg Tablet) 50 mcg PO DAILY [facility] Last Admin: 04/25/24 08:17 Dose: 50 mcg Home Medications ?Medication ?Instructions ?Recorded ?Confirmed ?Last Taken ?Type aspirin 81 mg tablet,delayed 81 mg PO DAILY 03/12/20 04/21/24 04/21/24 History release (Adult Low Dose Aspirin) cholecalciferol (vitamin D3) 50 50 mcg PO DAILY 03/12/20 04/21/24 04/21/24 History mcg (2,000 unit) capsule omega-3 fatty acids-fish oil 360 1 cap PO DAILY 03/12/20 04/21/24 04/21/24 History mg-1,200 mg capsule (Fish Oil) multivitamin 1 tab PO DAILY 07/12/20 04/21/24 04/21/24 History Oxygen Home Use 06/14/22 12/17/23 Unknown History vitamin B complex 1 tab PO DAILY 10/31/22 04/21/24 04/21/24 History calcium carbonate 500 mg PO DAILY 01/01/23 04/21/24 04/21/24 History bumetanide 2 mg tablet 2 mg PO DAILY 04/21/24 04/21/24 04/21/24 History coQ10 (ubiquinol) 100 mg capsule 100 mg PO DAILY 04/21/24 04/21/24 04/21/24 History (Qunol Reyes CoQ10) losartan 100 mg tablet 50 mg PO DAILY 04/21/24 04/21/24 04/21/24 History Physical Exam 2 Vital Signs: Vital Signs: Last Vital Signs Temp 97.8 F 04/25/24 11:05 Pulse 75 04/25/24 11:05 Resp 18 04/25/24 11:05 BP 136/71 04/25/24 11:05 Pulse Ox 92 04/25/24 11:05 O2 Del Method Nasal Cannula 04/25/24 11:05 O2 Flow Rate 4 04/25/24 11:05 Oxygen Flow Rate 4 04/21/24 10:50 BMI result Body Mass Index 42.7 Const: General: no acute distress and alert Nutritional Appearance: obese and Edematous Orientation/consciousness: Other orientation findings ( oriented) HEENT: Head: Yes atraumatic Eyes: General: appearance normal, both eyes and all related structures S clerae: sclerae normal EOM: EOMs intact bilaterally Neck: Neck: Yes supple Lymphatic: no lymphadenopathy noted Resp: Effort & Inspection: normal respiratory effort and no use of accessory muscles Auscultation: clear to auscultation bilaterally Cardio: Rate: regular rate Rhythm: regular rhythm Heart sounds: no gallops, no murmurs and no rubs Skin: General skin exam: other ( warm) Extrem: General: No clubbing, No cyanosis and Yes edema (2+ bilateral) Results Laboratory Findings 04/22/24 05:53 04/25/24 08:51 ABG, PT/INR, D-dimer: PT/INR, D-dimer PT 24.5 SEC (10.9-12.4) H 04/21/24 11:13 INR 2.1 (0.9-1.1) H 04/21/24 11:13 Abnormal lab findings: Abnormal Labs 04/21/24 04/21/24 04/22/24 11:12 11:13 05:53 RBC 6.07 H 6.06 H Hgb 18.4 H 18.7 H Hct 55.5 H 54.5 H RDW 19.4 H 19.1 H Plt Count 83 L 90 L Immature Gran % (Auto) 0.8 H 0.5 H Neut % (Auto) 77.9 H Lymph % (Auto) 16.7 L [place] % (Auto) 12.9 H Lymph # (Auto) 0.9 L Abs Immat Gran (auto) 0.05 H PT 24.5 H INR 2.1 H Chloride Carbon Dioxide BUN 23 H 23 H Random Glucose 126 H Total Bilirubin 2.4 H 2.6 H AST 49 H Alkaline Phosphatase 232 H 271 H B-Natriuretic Peptide 1832 H Total Protein 5.8 L 6.4 L Albumin 3.3 L 04/23/24 04/23/24 04/24/24 07:02 18:36 10:04 RBC Hgb Hct RDW Plt Count Immature Gran % (Auto) Neut % (Auto) Lymph % (Auto) [place] % (Auto) Lymph # (Auto) Abs Immat Gran (auto) PT INR Chloride Carbon Dioxide BUN 21 H 22 H Random Glucose 138 H 214 H Total Bilirubin AST Alkaline Phosphatase B-Natriuretic Peptide 1828 H 2189 H Total Protein Albumin 04/25/24 08:51 RBC Hgb Hct RDW Plt Count Immature Gran % (Auto) Neut % (Auto) Lymph % (Auto) [place] % (Auto) Lymph # (Auto) Abs Immat Gran (auto) PT INR Chloride 95 L Carbon Dioxide 30 H BUN 22 H Random Glucose 138 H Total Bilirubin AST Alkaline Phosphatase B-Natriuretic Peptide 1927 H Total Protein Albumin Microbiology: Microbiology 04/21/24 12:48 Blood - Venous Blood Culture - Preliminary No growth after 48 hours. 04/21/24 12:48 Blood - Venous Blood Culture - Preliminary No growth after 48 hours. Assessment and Plan (1) COPD (chronic obstructive pulmonary disease): Qualifiers: COPD type: emphysema Emphysema type: panlobular Qualified Code(s): J 43.1 - Panlobular emphysema Status: Acute (2) Cor pulmonale: Status: Acute (3) Acute exacerbation of chronic heart failure: Status: Acute (4) Acute and chronic respiratory failure with hypoxia: Status: Resolved Plan Impression: 64-year-old gentleman with underlying COPD on 4-6 L of supplemental oxygen, cor pulmonale, suboptimal compliance with diuretic regimen admitted with acute on chronic hypoxia and dyspnea secondary to poor compliance with underlying diuretic regimen, now improving with IV diuresis. Recommendation: Agree with continuation of diuresis, though would limit it to 3-4 L net negative / day. Procedures Date of Service Date of Service: 04/25/24
[2024-04-26] VITALS (8 sets, daily range): BP systolic 114–135; BP diastolic 63–77; PULSE 54–98; RESP 16–20; TEMP 36–37.1; O2SAT 89–96
[2024-04-26] MEDS: 0.9 % Sodium Chloride Flush 3 ML SYRINGE IVFLUSH ×4 (00:30→20:04)
--- NOTE | 2024-04-26 00:46 | PC.NURSE ---
Patient found kneeling bedside by other staff, who notified this RN. Cabin Man was on unit and attended bedside along with myself, charge nurse, other staff. Patient stated that he wanted to sleep on a harder surface, so he decided lowering himself to the ground was a good idea. Bed alarm was on and sounded. Patient denied injury to anywhere on body, good spirits, VSS. No redness or visible injury to knees. Patient back in bed, re-educated on saftey precautions and call francois use. Cabin Man notified DR. Monteiro, no new orders.
[2024-04-26] MEDS: Albumin Human 25 % 100 ML IV (04:49)
[2024-04-26 07:04] LABS: Anion Gap 13 (12-20); Blood Urea Nitrogen 22 mg/dL (9-16); Calcium 9.6 mg/dL (8.4-10.2); Carbon Dioxide 29 mmol/L (22-29); Chloride 100 mmol/L (96-108); Creatinine Clr Calc Pharmacy 120.8; Estimated Glomerular Filt Rate > 60; Glucose Random 120 mg/dL (60-115); Potassium 3.6 mmol/L (3.3-5.1); Sodium 138 mmol/L (135-145)
[2024-04-26 07:13] LABS: B Type Natriuretic Peptide 2531 pg/mL (<100)
[2024-04-26] MEDS: Aspirin Enteric Coated 81 MG TABLET.DR PO (07:56)
[2024-04-26] MEDS: Calcium Oyster Shell Elemental 500 MG TABLET PO (07:56)
[2024-04-26] MEDS: UMECLIDINIUM VILANTEROL INHALE (07:56)
[2024-04-26] MEDS: Atorvastatin Calcium 80 MG TABLET PO (07:56)
[2024-04-26] MEDS: ACTUATION BL INHALE (07:56)
[2024-04-26] MEDS: guaiFENesin LA 600 MG TAB.ER.12H PO ×2 (07:56→20:02)
[2024-04-26] MEDS: Cholecalciferol (Vitamin D3) 25 MCG TABLET 50 MCG PO (07:56)
[2024-04-26] MEDS: Multivitamin TABLET 1 TAB PO (07:56)
[2024-04-26] MEDS: Apixaban 5 MG TABLET PO ×2 (07:56→20:02)
[2024-04-26] MEDS: Spironolactone 25 MG TABLET PO ×2 (08:28→20:02)
--- NOTE | 2024-04-26 09:58 | PM.PNCARD ---
Subjective Subjective Date of Service: 04/26/24 Interval history: Seen examined at bedside. He has 6 L negative despite holding diuretics. He is feeling good though. Physical Exam Vital Signs: Last Vital Signs Temp 96.8 F 04/26/24 07:27 Pulse 54 04/26/24 07:27 Resp 20 04/26/24 07:27 BP 130/77 04/26/24 07:27 Pulse Ox 92 04/26/24 07:27 O2 Del Method Nasal Cannula 04/26/24 07:27 O2 Flow Rate 4 04/26/24 07:27 Oxygen Flow Rate 4 04/21/24 10:50 BMI result Body Mass Index 42.7 GENERAL APPEARANCE: in no acute distress, pleasant. NECK: no carotid bruit, + JVD. SKIN: no suspicious lesions, warm and dry. HEART: no murmurs, irregular rate and rhythm. Left parasternal heave. LUNGS: clear to auscultation bilaterally. ABDOMEN: soft, nontender. EXTREMITIES: 1-2 + edema bilaterally. PERIPHERAL PULSES: equal. NEUROLOGIC: No gross deficits, AAO X 3 Objective Labs and Meds 04/22/24 05:53 04/26/24 05:58 Lab results: Laboratory Results - last 24 hr 04/22/24 04/26/24 05:53 05:58 Sodium 138 Potassium 3.6 Chloride 100 Carbon Dioxide 29 Anion Gap 13 BUN 22 H Creatinine 0.97 Estim Creat Clear Calc 120.8 Estimated GFR > 60 Random Glucose 120 H Estimat Average Glucose 123 Hemoglobin A1c % 5.9 Calcium 9.6 B-Natriuretic Peptide 2531 H Progress Note: A&P Assessment and plan (1) Right heart failure: Status: Acute Plan [age] year gentleman with background history of mitral valve repair, chronic diastolic heart failure, diabetes, hypertension, COPD and pulmonary hypertension presenting with significant volume overload. Echocardiography has shown severe RV dysfunction with respiratory interdependence of interventricular septum with small left ventricular cavity size. The LV cavity is D shaped. He was given 1 dose of metolazone which led to significant diuresis of 7 L and was feeling dizzy yesterday. He was taken off the diuretics drip and was given 1 L of fluid and some albumin. He has felt better since then but continued to diurese despite holding diuretics and has been 6 L negative. I think we monitor I's and O's for now because if he continues to diurese on his own then he may not require any dosing. If his urine output starts dropping then I think we can give him bolus dose of Lasix 80 mg at a time. He has cor pulmonale.. He said he was aware of it previously and I offered him to be transferred to [facility] but he wishes not to do that. Thank you for allowing me to participate in the care of your patient. Please feel free to contact me if you have any questions. Time Spent With Patient Time: Total time managing care of this patient today ____ minutes. Progress Note: Quality Stroke Does the patient have a stroke diagnosis?: No Procedures Date of Service Date of Service: 04/26/24
--- NOTE | 2024-04-26 14:47 | P.PNIM_ITS ---
Subjective Subjective Date of Service: 04/26/24 Interval History: chf execerebation Review of Systems sob improving has dizziness Physical Exam 2 Vital Signs: Vital Signs: Last Vital Signs Temp 97.1 F 04/26/24 11:19 Pulse 70 04/26/24 11:19 Resp 20 04/26/24 11:19 BP 119/70 04/26/24 11:19 Pulse Ox 92 04/26/24 11:19 O2 Del Method Nasal Cannula 04/26/24 11:19 O2 Flow Rate 4 04/26/24 11:19 Oxygen Flow Rate 4 04/21/24 10:50 BMI result Body Mass Index 42.7 Appearance: Alert.? Oriented X3.? cvs: [id number], [id number]. res: air entry improvin abd: no rebound or guarding ,nt, bs present. ext pulses present , no cyanosis ,edema3+. neuro: axo3 , nonfocal. Objective Data Active Medications Apixaban (Apixaban 5 Mg Tablet) 5 mg PO BID [facility] Last Admin: 04/26/24 07:56 Dose: 5 mg Documented By: CARMELO Aspirin (Aspirin Enteric Coated 81 Mg Tablet.Dr) 81 mg PO DAILY [facility] Last Admin: 04/26/24 07:56 Dose: 81 mg Documented By: CARMELO Atorvastatin Calcium (Atorvastatin Calcium 80 Mg Tablet) 80 mg PO DAILY [facility] Last Admin: 04/26/24 07:56 Dose: 80 mg Documented By: CARMELO Calcium Carbonate (Calcium Carbonate 750 Mg Tab.Chew) 750 mg PO Q4H PRN PRN Reason: Heartburn Calcium Carbonate (Calcium Oyster Shell Elemental 500 Mg Tablet) 500 mg PO DAILY [facility] Last Admin: 04/26/24 07:56 Dose: 500 mg Documented By: CARMELO Guaifenesin (Guaifenesin La 600 Mg Tab.Er.12h) 600 mg PO BID [facility] Last Admin: 04/26/24 07:56 Dose: 600 mg Documented By: CARMELO Magnesium Hydroxide (Milk Of Magnesia 30 Ml Oral.Susp) 30 ml PO DAILY PRN PRN Reason: Constipation Melatonin (Melatonin 3 Mg Tablet) 6 mg PO BEDTIME PRN PRN Reason: Insomnia Multivitamins/Vitamin C (Multivitamin Tablet) 1 tab PO DAILY [facility] Last Admin: 04/26/24 07:56 Dose: 1 tab Documented By: CARMELO Pt Own(Umeclidinium- Vilanterol [Anoro Ellipta] 62.5-25 Mcg /Actuation Bl 1 inhalation INHALE RDAILY [facility] Last Admin: 04/26/24 07:56 Dose: 1 inhalation Documented By: CARMELO Comments: At bedside with pt, uses it as prescribed Ondansetron HCl (Ondansetron Hcl 4 Mg/2 Ml Vial) 4 mg IVPUSH Q8H PRN PRN Reason: Nausea and Vomiting Pregabalin (Pregabalin 25 Mg Capsule) 25 mg PO BID [facility] Last Admin: 04/25/24 08:16 Dose: 25 mg Documented By: IVANIA Sodium Chloride (0.9 % Sodium Chloride Flush 3 Ml Syringe) 3 ml IVFLUSH QSHIFT [facility] Last Admin: 04/26/24 07:56 Dose: 3 ml Documented By: CARMELO Spironolactone (Spironolactone 25 Mg Tablet) 25 mg PO BID [facility]; Protocol Last Admin: 04/26/24 08:28 Dose: 25 mg Documented By: CARMELO Vitamin D (Cholecalciferol (Vitamin D3) 25 Mcg Tablet) 50 mcg PO DAILY [facility] Last Admin: 04/26/24 07:56 Dose: 50 mcg Documented By: CARMELO Labs 04/22/24 05:53 04/26/24 05:58 Labs: Laboratory Results - last 24 hr 04/26/24 05:58 Anion Gap 13 Estim Creat Clear Calc 120.8 Estimated GFR > 60 Random Glucose 120 H Calcium 9.6 B-Natriuretic Peptide 2531 H Assessment and Plan (1) Acute exacerbation of chronic heart failure: Status: Acute Assessment and Plan: 64 year old man with a hx of interstitial lung disease presenting with increased shortness of breath Acute on chronic hypoxic respiratory failure secondary to heart failure with preserved ejection fraction, interstitial lung disease and pneumonia continue Rocephin and azithromycin ,prednisone , scheduled DuoNebs. Echocardiogram: Echocardiography has shown severe RV dysfunction with respiratory interdependence of interventricular septum with small left ventricular cavity size. pulmonary hypertension in the past but his PA pressures appear to be normal at this stage which is due to poor RV contractility. added some digoxin for increasing contractility and rate control. Toprol and Cardizem are discontinued and can not be resumed. lightheadness improved. plan: hold iv lasix drip/ bp meds . moniter i/o 20 Liter negative . hold lasix cardiology following-continue nebs, steriods switched po,oxygen (uses home oxygen -uses 4-6liter at home). nsvt episode 2 days back: potassium is 3.5 mag 2.4 asymptomatic added potassium po., moniter electrolytes, moniter tele . Thrombocytopenia, unspecified Unknown etiology, may be medication related Follow up platelet count, if worsening consult Hematology Polycythemia Chronic Likely secondary to lung disease Persistent atrial fibrillation hold beta-baron. continue digoxin,Eliquis Hypertension Hold losartan due to soft blood pressures. Hyperlipidemia Continue aspirin, statin Morbid obesity. BMI 42.7 Discussed importance of weight management as this may be contributing to worsening of other comorbidities DVT prophylaxis with Eliquis Full code Quality Stroke Does the patient have a stroke diagnosis?: No VTE Prior VTE?: No VTE Risk Level:: Medical - moderate - high VTE Device Contraindication: Treatment Not Indicated VTE Drug Contraindication: N/A - Med Ordered
[2024-04-26] MEDS: Potassium Chloride ER 20 MEQ TAB.ER.PRT PO (16:01)
[2024-04-27] VITALS (9 sets, daily range): BP systolic 111–134; BP diastolic 66–89; PULSE 43–87; RESP 16–20; TEMP 36.3–37.1; O2SAT 92–96
[2024-04-27] MEDS: Spironolactone 25 MG TABLET PO ×2 (08:09→21:14)
[2024-04-27] MEDS: Multivitamin TABLET 1 TAB PO (08:09)
[2024-04-27] MEDS: Cholecalciferol (Vitamin D3) 25 MCG TABLET 50 MCG PO (08:09)
[2024-04-27] MEDS: Calcium Oyster Shell Elemental 500 MG TABLET PO (08:10)
[2024-04-27] MEDS: ACTUATION BL INHALE (08:10)
[2024-04-27] MEDS: Apixaban 5 MG TABLET PO ×2 (08:10→21:17)
[2024-04-27] MEDS: 0.9 % Sodium Chloride Flush 3 ML SYRINGE IVFLUSH ×3 (08:10→21:17)
[2024-04-27] MEDS: Aspirin Enteric Coated 81 MG TABLET.DR PO (08:10)
[2024-04-27] MEDS: UMECLIDINIUM VILANTEROL INHALE (08:10)
[2024-04-27] MEDS: Atorvastatin Calcium 80 MG TABLET PO (08:10)
[2024-04-27] MEDS: guaiFENesin LA 600 MG TAB.ER.12H PO ×2 (08:11→21:17)
[2024-04-27 09:03] LABS: Anion Gap 14 (12-20); Blood Urea Nitrogen 22 mg/dL (9-16); Calcium 9.3 mg/dL (8.4-10.2); Carbon Dioxide 27 mmol/L (22-29); Chloride 100 mmol/L (96-108); Creatinine Clr Calc Pharmacy 146.5; Estimated Glomerular Filt Rate > 60; Glucose Random 88 mg/dL (60-115); Potassium 3.8 mmol/L (3.3-5.1); Sodium 137 mmol/L (135-145)
--- NOTE | 2024-04-27 10:01 | P.PNCA_ITS ---
Subjective Subjective Date of Service: 04/27/24 Interval history: Seen and examined. Denying any issues. 1 L negative over last 24 hours . Physical Exam Vital Signs: Last Vital Signs Temp 97.8 F 04/27/24 07:07 Pulse 80 04/27/24 07:07 Resp 18 04/27/24 07:07 BP 119/77 04/27/24 07:07 Pulse Ox 92 04/27/24 07:07 O2 Del Method Nasal Cannula 04/27/24 07:07 O2 Flow Rate 4 04/27/24 07:07 Oxygen Flow Rate 4 04/21/24 10:50 BMI result Body Mass Index 42.7 GENERAL APPEARANCE: in no acute distress, pleasant. NECK: no carotid bruit, + JVD. SKIN: no suspicious lesions, warm and dry. HEART: PSM left sternal border, irregular rate and rhythm. Left parasternal heave. LUNGS: clear to auscultation bilaterally. ABDOMEN: soft, nontender. pulsatile liver. EXTREMITIES: 1-2 + edema bilaterally. PERIPHERAL PULSES: equal. NEUROLOGIC: No gross deficits, AAO X 3 Objective Labs and Meds 04/22/24 05:53 04/27/24 08:33 Lab results: Laboratory Results - last 24 hr 04/27/24 08:33 Sodium 137 Potassium 3.8 Chloride 100 Carbon Dioxide 27 Anion Gap 14 BUN 22 H Creatinine 0.80 Estim Creat Clear Calc 146.5 Estimated GFR > 60 Random Glucose 88 Calcium 9.3 Progress Note: A&P Assessment and plan (1) Right heart failure: Status: Acute Plan [age] year gentleman with background history of mitral valve repair, chronic diastolic heart failure, diabetes, hypertension, COPD and pulmonary hypertension presenting with significant volume overload. Echocardiography has shown severe RV dysfunction with respiratory interdependence of interventricular septum with small left ventricular cavity size. The LV cavity is D shaped. He was given 1 dose of metolazone which led to significant diuresis of 7 L and was feeling dizzy. He was taken off the diuretics drip and was given 1 L of fluid and some albumin. He has felt better since then but continued to diurese despite holding diuretics and has been 6 L negative. He diuresed with medications and was 6 L negative the next day but today - 1 L. Adding Lasix 60 mg IV x 1. Will decide dose based on response. Would avoid aggressive fluid removal. Cor pulmonale due to COPD. Oxygen dependant at home 4 L/min which he must continue. He said he was aware of it previously and I offered him to be transferred to [facility] but he wishes not to do that. Care supportive. Overall prognosis is poor and he knows that. Thank you for allowing me to participate in the care of your patient. Please feel free to contact me if you have any questions. Time Spent With Patient Time: Total time managing care of this patient today ____ minutes. Progress Note: Quality Stroke Does the patient have a stroke diagnosis?: No Procedures Date of Service Date of Service: 04/27/24
[2024-04-27] MEDS: Furosemide 100 MG/10 ML VIAL 60 MG IVPUSH (12:30)
[2024-04-27] MEDS: Digoxin 0.125 MG TABLET PO (12:31)
--- NOTE | 2024-04-27 15:11 | HO.PM.IMPN ---
Subjective Subjective Date of Service: 04/27/24 Interval History: chf execerebation Review of Systems sob improving, no cough Physical Exam Vital Signs: Vital Signs: Last Vital Signs Temp 97.4 F 04/27/24 11:22 Pulse 83 04/27/24 11:22 Resp 19 04/27/24 11:22 BP 131/73 04/27/24 12:39 Pulse Ox 94 04/27/24 11:22 O2 Del Method Nasal Cannula 04/27/24 11:22 O2 Flow Rate 4 04/27/24 11:22 Oxygen Flow Rate 4 04/21/24 10:50 BMI result Body Mass Index 42.7 Appearance: Alert.? Oriented X3.? cvs: rrr, [id number]. res: air entry improvin abd: no rebound or guarding ,nt, bs present. ext pulses present , no cyanosis ,edema3+. neuro: axo3 , nonfocal. Objective Data Active Medications Apixaban (Apixaban 5 Mg Tablet) 5 mg PO BID [facility] Last Admin: 04/27/24 08:10 Dose: 5 mg Documented By: CARMELO Aspirin (Aspirin Enteric Coated 81 Mg Tablet.Dr) 81 mg PO DAILY [facility] Last Admin: 04/27/24 08:10 Dose: 81 mg Documented By: CARMELO Atorvastatin Calcium (Atorvastatin Calcium 80 Mg Tablet) 80 mg PO DAILY [facility] Last Admin: 04/27/24 08:10 Dose: 80 mg Documented By: CARMELO Calcium Carbonate (Calcium Carbonate 750 Mg Tab.Chew) 750 mg PO Q4H PRN PRN Reason: Heartburn Calcium Carbonate (Calcium Oyster Shell Elemental 500 Mg Tablet) 500 mg PO DAILY [facility] Last Admin: 04/27/24 08:10 Dose: 500 mg Documented By: CARMELO Digoxin (Digoxin 0.125 Mg Tablet) 0.125 mg PO DAILY [facility]; Protocol Last Admin: 04/27/24 12:31 Dose: 0.125 mg Documented By: CARMELO Guaifenesin (Guaifenesin La 600 Mg Tab.Er.12h) 600 mg PO BID [facility] Last Admin: 04/27/24 08:11 Dose: 600 mg Documented By: CARMELO Magnesium Hydroxide (Milk Of Magnesia 30 Ml Oral.Susp) 30 ml PO DAILY PRN PRN Reason: Constipation Melatonin (Melatonin 3 Mg Tablet) 6 mg PO BEDTIME PRN PRN Reason: Insomnia Multivitamins/Vitamin C (Multivitamin Tablet) 1 tab PO DAILY [facility] Last Admin: 04/27/24 08:09 Dose: 1 tab Documented By: CARMELO Pt Own(Umeclidinium- Vilanterol [Anoro Ellipta] 62.5-25 Mcg /Actuation Bl 1 inhalation INHALE RDAILY [facility] Last Admin: 04/27/24 08:10 Dose: 1 inhalation Documented By: CARMELO Comments: At bedside with pt Ondansetron HCl (Ondansetron Hcl 4 Mg/2 Ml Vial) 4 mg IVPUSH Q8H PRN PRN Reason: Nausea and Vomiting Pregabalin (Pregabalin 25 Mg Capsule) 25 mg PO BID [facility] Last Admin: 04/25/24 08:16 Dose: 25 mg Documented By: IVANIA Sodium Chloride (0.9 % Sodium Chloride Flush 3 Ml Syringe) 3 ml IVFLUSH QSHIFT [facility] Last Admin: 04/27/24 08:10 Dose: 3 ml Documented By: CARMELO Spironolactone (Spironolactone 25 Mg Tablet) 25 mg PO BID [facility]; Protocol Last Admin: 04/27/24 08:09 Dose: 25 mg Documented By: CARMELO Vitamin D (Cholecalciferol (Vitamin D3) 25 Mcg Tablet) 50 mcg PO DAILY [facility] Last Admin: 04/27/24 08:09 Dose: 50 mcg Documented By: CARMELO Labs 04/22/24 05:53 04/27/24 08:33 Labs: Laboratory Results - last 24 hr 04/27/24 08:33 Anion Gap 14 Estim Creat Clear Calc 146.5 Estimated GFR > 60 Random Glucose 88 Calcium 9.3 Microbiology Microbiology Results: Microbiology 04/21/24 12:48 Blood Culture - Final Blood - Venous No growth after 5 days. 04/21/24 12:48 Blood Culture - Final Blood - Venous No growth after 5 days. Assessment and Plan (1) Acute exacerbation of chronic heart failure: Status: Acute Assessment and Plan: 64 year old man with a hx of interstitial lung disease presenting with increased shortness of breath Acute on chronic hypoxic respiratory failure secondary to heart failure with preserved ejection fraction, interstitial lung disease and pneumonia continue Rocephin and azithromycin ,prednisone , scheduled DuoNebs. Echocardiogram: Echocardiography has shown severe RV dysfunction with respiratory interdependence of interventricular septum with small left ventricular cavity size. pulmonary hypertension in the past but his PA pressures appear to be normal at this stage which is due to poor RV contractility. added some digoxin for increasing contractility and rate control. Toprol and Cardizem are discontinued and can not be resumed. lightheadness improved. plan: moniter i/o 21 Liter negative . hold lasix drip,will give trial of Lasix 60 mg IV x 1. cardiology following-continue nebs, steriods switched po,oxygen (uses home oxygen -uses 4-6liter at home). nsvt episode 2 days back: potassium is 3.8 mag 2.4 asymptomatic added potassium po., moniter electrolytes, moniter tele . Thrombocytopenia, unspecified Unknown etiology, may be medication related Follow up platelet count, if worsening consult Hematology Polycythemia Chronic Likely secondary to lung disease Persistent atrial fibrillation hold beta-baron. continue digoxin,Eliquis Hypertension Hold losartan due to soft blood pressures. Hyperlipidemia Continue aspirin, statin Morbid obesity. BMI 42.7 Discussed importance of weight management as this may be contributing to worsening of other comorbidities DVT prophylaxis with Eliquis Full code Quality Stroke Does the patient have a stroke diagnosis?: No VTE Prior VTE?: No VTE Risk Level:: Medical - moderate - high VTE Device Contraindication: Treatment Not Indicated VTE Drug Contraindication: N/A - Med Ordered
[2024-04-28] VITALS (9 sets, daily range): BP systolic 100–126; BP diastolic 70–87; PULSE 71–89; RESP 14–20; TEMP 35.8–36.5; O2SAT 90–96
[2024-04-28 06:46] LABS: Anion Gap 13 (12-20); Blood Urea Nitrogen 22 mg/dL (9-16); Calcium 9.2 mg/dL (8.4-10.2); Carbon Dioxide 28 mmol/L (22-29); Chloride 102 mmol/L (96-108); Creatinine Clr Calc Pharmacy 142.9; Estimated Glomerular Filt Rate > 60; Glucose Random 91 mg/dL (60-115); Potassium 3.5 mmol/L (3.3-5.1); Sodium 139 mmol/L (135-145)
[2024-04-28] MEDS: Atorvastatin Calcium 80 MG TABLET PO (08:47)
[2024-04-28] MEDS: Calcium Oyster Shell Elemental 500 MG TABLET PO (08:48)
[2024-04-28] MEDS: Cholecalciferol (Vitamin D3) 25 MCG TABLET 50 MCG PO (08:48)
[2024-04-28] MEDS: Multivitamin TABLET 1 TAB PO (08:48)
[2024-04-28] MEDS: Spironolactone 25 MG TABLET PO ×2 (08:48→20:01)
[2024-04-28] MEDS: guaiFENesin LA 600 MG TAB.ER.12H PO ×2 (08:48→20:01)
[2024-04-28] MEDS: Digoxin 0.125 MG TABLET PO (08:48)
[2024-04-28] MEDS: UMECLIDINIUM VILANTEROL INHALE (08:49)
[2024-04-28] MEDS: ACTUATION BL INHALE (08:49)
[2024-04-28] MEDS: Aspirin Enteric Coated 81 MG TABLET.DR PO (08:49)
[2024-04-28] MEDS: Apixaban 5 MG TABLET PO ×2 (08:49→20:01)
[2024-04-28] MEDS: 0.9 % Sodium Chloride Flush 3 ML SYRINGE IVFLUSH ×3 (08:52→20:01)
--- NOTE | 2024-04-28 09:56 | PM.PNCARD ---
Subjective Subjective Date of Service: 04/28/24 Principal diagnosis: right heart failure Interval history: patient was diuresed again with IV Lasix 5.4 L. He is feeling well. Leg edema has improved. Shortness of breath has im Review of Systems Constitutional: Reports no additional constitutional complaints Cardiovascular: Reports no additional cardiovascular complaints and Reports dyspnea on exertion Respiratory: Denies cough and Reports dyspnea on exertion Gastrointestinal: Reports no additional gastrointestinal complaints Physical Exam Vital Signs: Last Vital Signs Temp 97.7 F 04/28/24 07:19 Pulse 73 04/28/24 07:19 Resp 14 04/28/24 07:19 BP 119/84 04/28/24 07:19 Pulse Ox 93 04/28/24 07:19 O2 Del Method BiPAP 04/28/24 07:19 O2 Flow Rate 4 04/27/24 19:42 Oxygen Flow Rate 4 04/21/24 10:50 BMI result Body Mass Index 42.7 GENERAL APPEARANCE: in no acute distress, pleasant. NECK: no carotid bruit, + JVD. SKIN: no suspicious lesions, warm and dry. HEART: PSM left sternal border, irregular rate and rhythm. Left parasternal heave. LUNGS: clear to auscultation bilaterally. ABDOMEN: soft, nontender. pulsatile liver. EXTREMITIES: 1 + edema bilaterally. With chronic venous stasis changes PERIPHERAL PULSES: equal. NEUROLOGIC: No gross deficits, AAO X 3 Objective Labs and Meds 04/22/24 05:53 04/28/24 06:06 Lab results: Laboratory Results - last 24 hr 04/28/24 06:06 Hold Purple Top SEE NOTE Sodium 139 Potassium 3.5 Chloride 102 Carbon Dioxide 28 Anion Gap 13 BUN 22 H Creatinine 0.82 Estim Creat Clear Calc 142.9 Estimated GFR > 60 Random Glucose 91 Calcium 9.2 Progress Note: A&P Assessment and plan (1) Right heart failure: Status: Acute Assessment and Plan: right heart failure in this middle-aged man secondary to severe RV systolic dysfunction with secondary significant pulmonary hypertension, combination of obesity hypoventilation, severe COPD, diastolic heart failure with persistent atrial fibrillation. Clinically has improved significantly with IV diuresis. Switch to p.o. Bumex his usual dose at home at 2 mg. Strict intake and output chart needs to be pursued. Patient remains well, plan for discharge tomorrow after checking BNP. Continue oxygen supplementation therapy. Continue BiPAP therapy. Overall prognosis is guarded in the long run. Will follow with you Time Spent With Patient Time: Total time managing care of this patient today ____ minutes. Progress Note: Quality Stroke Does the patient have a stroke diagnosis?: No Procedures Date of Service Date of Service: 04/28/24
[2024-04-28] MEDS: Bumetanide 1 MG TABLET PO ×2 (11:46→18:02)
--- NOTE | 2024-04-28 13:11 | HO.PM.IMPN ---
Subjective Subjective Date of Service: 04/28/24 Interval History: chf ,pulm htn Review of Systems sob seems somewhat improving i/o 27liter negative Physical Exam Vital Signs: Vital Signs: Last Vital Signs Temp 97.1 F 04/28/24 11:09 Pulse 89 04/28/24 11:09 Resp 16 04/28/24 11:09 BP 121/70 04/28/24 11:09 Pulse Ox 92 04/28/24 11:09 O2 Del Method Nasal Cannula 04/28/24 11:09 O2 Flow Rate 4 04/28/24 11:09 Oxygen Flow Rate 4 04/21/24 10:50 BMI result Body Mass Index 42.7 Appearance: Alert.? Oriented X3.? cvs: rrr, [id number]. res: air entry improvin abd: no rebound or guarding ,nt, bs present. ext pulses present , no cyanosis ,edema1+. neuro: axo3 , nonfocal Objective Data Active Medications Apixaban (Apixaban 5 Mg Tablet) 5 mg PO BID [facility] Last Admin: 04/28/24 08:49 Dose: 5 mg Documented By: ANGELICA Aspirin (Aspirin Enteric Coated 81 Mg Tablet.) 81 mg PO DAILY [facility] Last Admin: 04/28/24 08:49 Dose: 81 mg Documented By: ANGELICA Atorvastatin Calcium (Atorvastatin Calcium 80 Mg Tablet) 80 mg PO DAILY [facility] Last Admin: 04/28/24 08:47 Dose: 80 mg Documented By: ANGELICA Bumetanide (Bumetanide 1 Mg Tablet) 1 mg PO BID@0800,1700 [facility]; Protocol Last Admin: 04/28/24 11:46 Dose: 1 mg Documented By: ANGELICA Calcium Carbonate (Calcium Carbonate 750 Mg Tab.Chew) 750 mg PO Q4H PRN PRN Reason: Heartburn Calcium Carbonate (Calcium Oyster Shell Elemental 500 Mg Tablet) 500 mg PO DAILY [facility] Last Admin: 04/28/24 08:48 Dose: 500 mg Documented By: ANGELICA Digoxin (Digoxin 0.125 Mg Tablet) 0.125 mg PO DAILY [facility]; Protocol Last Admin: 04/28/24 08:48 Dose: 0.125 mg Documented By: ANGELICA Guaifenesin (Guaifenesin La 600 Mg Tab.Er.12h) 600 mg PO BID [facility] Last Admin: 04/28/24 08:48 Dose: 600 mg Documented By: ANGELICA Magnesium Hydroxide (Milk Of Magnesia 30 Ml Oral.Susp) 30 ml PO DAILY PRN PRN Reason: Constipation Melatonin (Melatonin 3 Mg Tablet) 6 mg PO BEDTIME PRN PRN Reason: Insomnia Multivitamins/Vitamin C (Multivitamin Tablet) 1 tab PO DAILY [facility] Last Admin: 04/28/24 08:48 Dose: 1 tab Documented By: ANGELICA Pt Own(Umeclidinium- Vilanterol [Anoro Ellipta] 62.5-25 Mcg /Actuation Bl 1 inhalation INHALE RDAILY [facility] Last Admin: 04/28/24 08:49 Dose: 1 inhalation Documented By: ANGELICA Ondansetron HCl (Ondansetron Hcl 4 Mg/2 Ml Vial) 4 mg IVPUSH Q8H PRN PRN Reason: Nausea and Vomiting Pregabalin (Pregabalin 25 Mg Capsule) 25 mg PO BID [facility] Last Admin: 04/25/24 08:16 Dose: 25 mg Documented By: IVANIA Sodium Chloride (0.9 % Sodium Chloride Flush 3 Ml Syringe) 3 ml IVFLUSH QSHIFT [facility] Last Admin: 04/28/24 08:52 Dose: 3 ml Documented By: ANGELICA Spironolactone (Spironolactone 25 Mg Tablet) 25 mg PO BID [facility]; Protocol Last Admin: 04/28/24 08:48 Dose: 25 mg Documented By: ANGELICA Vitamin D (Cholecalciferol (Vitamin D3) 25 Mcg Tablet) 50 mcg PO DAILY [facility] Last Admin: 04/28/24 08:48 Dose: 50 mcg Documented By: ANGELICA Labs 04/22/24 05:53 04/28/24 06:06 Labs: Laboratory Results - last 24 hr 04/28/24 06:06 Hold Purple Top SEE NOTE Anion Gap 13 Estim Creat Clear Calc 142.9 Estimated GFR > 60 Random Glucose 91 Calcium 9.2 Assessment and Plan (1) Acute exacerbation of chronic heart failure: Status: Acute Assessment and Plan: 64 year old man with a hx of interstitial lung disease presenting with increased shortness of breath Acute on chronic hypoxic respiratory failure secondary to heart failure with preserved ejection fraction, interstitial lung disease and pneumonia continue Rocephin and azithromycin ,prednisone , scheduled DuoNebs. Echocardiogram: Echocardiography has shown severe RV dysfunction with respiratory interdependence of interventricular septum with small left ventricular cavity size. pulmonary hypertension in the past but his PA pressures appear to be normal at this stage which is due to poor RV contractility. added some digoxin for increasing contractility and rate control. Toprol and Cardizem are discontinued and can not be resumed. lightheadness improved. plan: moniter i/o 27 Liter negative . seems extrasenstive to diuretics cardiology following-started on bumex 1 mg daily ,moniter bmp continue nebs, steriods switched po,oxygen (uses home oxygen -uses 4-6liter at home). nsvt episode few days back: potassium is 3.5 added magnesium levels asymptomatic added potassium po moniter electrolytes, moniter tele . Thrombocytopenia, unspecified Unknown etiology, may be medication related Follow up platelet count, if worsening consult Hematology Polycythemia Chronic Likely secondary to lung disease Persistent atrial fibrillation as per cardiology -Avoid beta-blockers and no calcium channel baron especially diltiazem and verapamil. continue digoxin,Eliquis Hypertension Hold losartan due to soft blood pressures. Hyperlipidemia Continue aspirin, statin Morbid obesity. BMI 42.7 Discussed importance of weight management as this may be contributing to worsening of other comorbidities DVT prophylaxis with Eliquis Full code Quality Stroke Does the patient have a stroke diagnosis?: No VTE Prior VTE?: No VTE Risk Level:: Medical - moderate - high VTE Device Contraindication: Treatment Not Indicated VTE Drug Contraindication: N/A - Med Ordered
--- NOTE | 2024-04-28 13:16 | MHC.CM.PN ---
Per rounds, pt is not ready to DC, he requires continued treatment for heart failure. CM to follow for DC needs.
[2024-04-28] MEDS: Potassium Chloride ER 20 MEQ TAB.ER.PRT PO (15:22)
[2024-04-28 15:48] LABS: Magnesium 2.1 mg/dL (1.6-2.6)
--- NOTE | 2024-04-28 16:41 | P.PNPL_ITS ---
Subjective Subjective Date of Service: 04/28/24 Principal diagnosis: right heart failure Interval history: The patient was seen on exam. Underwent aggressive diuresis and starting to feel better. Still on high oxygen requirements. His echocardiogram demonstrating the pulmonary hypertension and also a very dilated RV. His pulmonary hypertension is out of proportion to his underlying respiratory and cardiac disease. Therefore will try him on a small dose of sildenafil 10 mg 3 times a day to see if he tolerates it and if we can see improvement in overall pulmonary vascular status. Objective Data Labs 04/22/24 05:53 04/28/24 06:06 Labs: Laboratory Results - last 24 hr 04/28/24 06:06 Hold Purple Top SEE NOTE Sodium 139 Potassium 3.5 Chloride 102 Carbon Dioxide 28 Anion Gap 13 BUN 22 H Creatinine 0.82 Estim Creat Clear Calc 142.9 Estimated GFR > 60 Random Glucose 91 Calcium 9.2 Magnesium 2.1 Microbiology Microbiology Results: Microbiology 04/21/24 12:48 Blood - Venous Blood Culture - Final No growth after 5 days. 04/21/24 12:48 Blood - Venous Blood Culture - Final No growth after 5 days. Review of Systems Constitutional: Reports no additional constitutional complaints Cardiovascular: Reports no additional cardiovascular complaints and Reports dyspnea on exertion Respiratory: Denies cough and Reports dyspnea on exertion Gastrointestinal: Reports no additional gastrointestinal complaints Physical Exam 2 Vital Signs: Vital Signs: Last Vital Signs Temp 97.3 F 04/28/24 15:08 Pulse 81 04/28/24 15:08 Resp 16 04/28/24 15:08 BP 114/74 04/28/24 15:08 Pulse Ox 90 L 04/28/24 15:08 O2 Del Method Nasal Cannula 04/28/24 15:08 O2 Flow Rate 4 04/28/24 15:08 Oxygen Flow Rate 4 04/21/24 10:50 BMI result Body Mass Index 42.7 GENERAL APPEARANCE: in no acute distress, pleasant. NECK: no carotid bruit, + JVD. SKIN: no suspicious lesions, warm and dry. HEART: PSM left sternal border, irregular rate and rhythm. Left parasternal heave. LUNGS: clear to auscultation bilaterally. ABDOMEN: soft, nontender. pulsatile liver. EXTREMITIES: 1 + edema bilaterally. With chronic venous stasis changes PERIPHERAL PULSES: equal. NEUROLOGIC: No gross deficits, AAO X 3 Procedures Date of Service Date of Service: 04/28/24 Assessment and Plan Assessment and plan (1) Acute exacerbation of chronic heart failure: Status: Acute (2) Cor pulmonale: Status: Acute (3) Pulmonary hypertension: Status: Acute (4) COPD (chronic obstructive pulmonary disease): Status: Acute (5) Morbid obesity due to excess calories: Status: Acute (6) Chronic diastolic (congestive) heart failure: Status: Acute Plan continue diurses as tolerated continue oxygen supplementation to keep pox>89% continue respiratory therapy start low dose sildenafil TID and monitor closely BIPAP at night Time Spent With Patient Time: Total time managing care of this patient today ____ minutes. Progress Note: Quality Stroke Does the patient have a stroke diagnosis?: No
[2024-04-28] MEDS: Sildenafil Citrate 20 MG TABLET 10 MG PO (20:01)
[2024-04-29 03:06] VITALS: BP 109/64; PULSE 54; RESP 18; TEMP 36.6; O2SAT 93
[2024-04-29 07:05] LABS: Anion Gap 13 (12-20); Blood Urea Nitrogen 23 mg/dL (9-16); Calcium 8.9 mg/dL (8.4-10.2); Carbon Dioxide 27 mmol/L (22-29); Chloride 102 mmol/L (96-108); Creatinine Clr Calc Pharmacy 150.3; Estimated Glomerular Filt Rate > 60; Glucose Random 90 mg/dL (60-115); Potassium 3.6 mmol/L (3.3-5.1); Sodium 138 mmol/L (135-145)
[2024-04-29 07:12] LABS: B Type Natriuretic Peptide 1082 pg/mL (<100)
[2024-04-29 07:14] VITALS: BP 124/75; PULSE 75; RESP 19; TEMP 36.2; O2SAT 92
[2024-04-29] MEDS: Spironolactone 25 MG TABLET PO (08:17)
[2024-04-29] MEDS: Bumetanide 1 MG TABLET PO (08:17)
[2024-04-29] MEDS: Cholecalciferol (Vitamin D3) 25 MCG TABLET 50 MCG PO (08:17)
[2024-04-29] MEDS: Aspirin Enteric Coated 81 MG TABLET.DR PO (08:17)
[2024-04-29] MEDS: Multivitamin TABLET 1 TAB PO (08:17)
[2024-04-29] MEDS: Calcium Oyster Shell Elemental 500 MG TABLET PO (08:17)
[2024-04-29] MEDS: Apixaban 5 MG TABLET PO (08:17)
[2024-04-29] MEDS: Sildenafil Citrate 20 MG TABLET 10 MG PO (08:18)
[2024-04-29] MEDS: Digoxin 0.125 MG TABLET PO (08:18)
[2024-04-29] MEDS: Atorvastatin Calcium 80 MG TABLET PO (08:18)
[2024-04-29] MEDS: ACTUATION BL INHALE (08:25)
[2024-04-29] MEDS: UMECLIDINIUM VILANTEROL INHALE (08:25)
[2024-04-29] MEDS: 0.9 % Sodium Chloride Flush 3 ML SYRINGE IVFLUSH (08:28)
[2024-04-29] MEDS: guaiFENesin LA 600 MG TAB.ER.12H PO (08:32)
--- NOTE | 2024-04-29 09:05 | P.PNPL_ITS ---
Subjective Subjective Date of Service: 04/29/24 Principal diagnosis: right heart failure Interval history: The patient was seen on exam. That is sildenafil 10 mg 3 times a day last night. Seems to be tolerating. Will monitor him today that does. He continues with diuresis her continues PAP therapy at nighttime. Objective Data Labs 04/22/24 05:53 04/29/24 06:11 Labs: Laboratory Results - last 24 hr 04/28/24 04/29/24 06:06 06:11 Sodium 138 Potassium 3.6 Chloride 102 Carbon Dioxide 27 Anion Gap 13 BUN 23 H Creatinine 0.78 Estim Creat Clear Calc 150.3 Estimated GFR > 60 Random Glucose 90 Calcium 8.9 Magnesium 2.1 B-Natriuretic Peptide 1082 H Microbiology Microbiology Results: Microbiology 04/21/24 12:48 Blood - Venous Blood Culture - Final No growth after 5 days. 04/21/24 12:48 Blood - Venous Blood Culture - Final No growth after 5 days. Review of Systems Constitutional: Reports no additional constitutional complaints Cardiovascular: Reports no additional cardiovascular complaints and Reports dyspnea on exertion Respiratory: Denies cough and Reports dyspnea on exertion Gastrointestinal: Reports no additional gastrointestinal complaints Physical Exam 2 Vital Signs: Vital Signs: Last Vital Signs Temp 97.1 F 04/29/24 07:14 Pulse 75 04/29/24 07:14 Resp 19 04/29/24 07:14 BP 124/75 04/29/24 07:14 Pulse Ox 92 04/29/24 07:14 O2 Del Method CPAP 04/29/24 07:14 O2 Flow Rate 4 04/28/24 19:02 Oxygen Flow Rate 4 04/21/24 10:50 BMI result Body Mass Index 42.7 GENERAL APPEARANCE: in no acute distress, pleasant. NECK: no carotid bruit, + JVD. SKIN: no suspicious lesions, warm and dry. HEART: PSM left sternal border, irregular rate and rhythm. Left parasternal heave. LUNGS: clear to auscultation bilaterally. ABDOMEN: soft, nontender. pulsatile liver. EXTREMITIES: 1 + edema bilaterally. With chronic venous stasis changes PERIPHERAL PULSES: equal. NEUROLOGIC: No gross deficits, AAO X 3 Procedures Date of Service Date of Service: 04/29/24 Assessment and Plan Assessment and plan (1) Acute exacerbation of chronic heart failure: Status: Acute (2) Cor pulmonale: Status: Acute (3) COPD (chronic obstructive pulmonary disease): Status: Acute (4) Pulmonary hypertension: Status: Acute Plan Continue oxygen supplementation to kepp pox>89% continue diuresis as tolerated continue sildenafil 10mg TID continue respiratory therapy PAP therapy at night would benefit from in patient pulmonary rehab Time Spent With Patient Time: Total time managing care of this patient today ____ minutes. Progress Note: Quality Stroke Does the patient have a stroke diagnosis?: No
--- NOTE | 2024-04-29 10:32 | PM.PNCARD ---
Subjective Subjective Date of Service: 04/29/24 Principal diagnosis: right heart failure Interval history: Patient was diuresed well with p.o. Bumex. Negative for MAGED 400 cc. Blood pressure is stable. BNP is downtrending in the 1000 range. Says feels better. Feels less bloated. Overall shortness of breath is improved. Review of Systems Review of Systems Yes all other systems are reviewed and are negative Physical Exam Vital Signs: Last Vital Signs Temp 97.1 F 04/29/24 07:14 Pulse 75 04/29/24 07:14 Resp 19 04/29/24 07:14 BP 124/75 04/29/24 07:14 Pulse Ox 92 04/29/24 07:14 O2 Del Method CPAP 04/29/24 07:14 O2 Flow Rate 4 04/28/24 19:02 Oxygen Flow Rate 4 04/21/24 10:50 BMI result Body Mass Index 42.7 GENERAL APPEARANCE: in no acute distress, pleasant. NECK: no carotid bruit, - JVD. SKIN: no suspicious lesions, warm and dry. HEART: PSM left sternal border, irregular rate and rhythm. Left parasternal heave. LUNGS: clear to auscultation bilaterally. ABDOMEN: soft, nontender. pulsatile liver. EXTREMITIES: 1 + edema bilaterally. With chronic venous stasis changes PERIPHERAL PULSES: equal. NEUROLOGIC: No gross deficits, AAO X 3 Objective Labs and Meds 04/22/24 05:53 04/29/24 06:11 Lab results: Laboratory Results - last 24 hr 04/28/24 04/29/24 06:06 06:11 Sodium 138 Potassium 3.6 Chloride 102 Carbon Dioxide 27 Anion Gap 13 BUN 23 H Creatinine 0.78 Estim Creat Clear Calc 150.3 Estimated GFR > 60 Random Glucose 90 Calcium 8.9 Magnesium 2.1 B-Natriuretic Peptide 1082 H Progress Note: A&P Assessment and plan (1) Acute exacerbation of chronic heart failure: Status: Acute Assessment and Plan: Acute decompensated congestive heart failure predominantly right heart failure related to multiple different clinical situation. Doing much better since diuresis. Continue with p.o. Bumex. Management of heart failure was discussed with him in details. Daily weight monitoring at home and avoidance salt loading was discussed. Additional diuretics as need be. Continue BiPAP therapy at nighttime. Continue chronic oxygen therapy to reduce pulmonary vaso constriction and to improve RV pressures. Continue ambulate as tolerated. Will follow-up as outpatient 7-10 days. I think patient can be discharged home today Time Spent With Patient Time: Total time managing care of this patient today ____ minutes. Progress Note: Quality Stroke Does the patient have a stroke diagnosis?: No Procedures Date of Service Date of Service: 04/29/24
[2024-04-29 10:40] VITALS: BP 124/75; PULSE 75; O2SAT 92
[2024-04-29 11:07] VITALS: BP 116/73; PULSE 72; RESP 18; TEMP 36.2; O2SAT 94
--- NOTE | 2024-04-29 12:21 | W.MHC.F2F ---
Service Date Service Date: 04/29/24 Encounter Date of encounter: 04/29/24 Reasons for Services Signs and symptoms assessed: CHF Reason for [facility]: medication management, medication treatment and teach disease management Reason for physical therapy: home safety and mobility, therapeutic exercises, gait/transfer training, assess need for DME, ADL training and energy conservation MD Overseeing Care: Maryana Crook Homebound: Leaving the home is medically contraindicated at this time without the asist of a device and/or another person due th the listed conditions above and below. Reason homebound: unsteady gait / fall risk, shortness of breath with minimal effort and weakness related to hospital stay Homebound supporting statement: please attach PT evaluation from 04/29/24 Certification: Based on the above findings, I certify that this patient is confined to the home and needs intermittent [facility] care, physical therapy and/or speech therapy, or continues to need occupational therapy. The patient is under my care, and I have initiated the establishment of the plan of care. The patient will be followed by a physician who will periodically review the plan of care. Time Spent With Patient Time: Total time managing care of this patient today ____ minutes.
--- NOTE | 2024-04-29 12:28 | MHC.CM.PN ---
Second IMM 04/29/24, Pt has been medically cleared to [place]. his son will pick him up, he will have home care services from [facility].
--- NOTE | 2024-04-29 12:30 | P.DS_ITS ---
DS: Providers Provider Date of Service: 04/29/24 Date of admission: 04/21/24 12:50 Date of discharge: 04/29/24 Primary care physician: Maryana Crook PA-C Consults: 04/22/24 12:15 Consult to Cardiology Routine Consulting Provider: [facility] Reason for consultation: Abnormal Echo 04/25/24 12:35 Consult to Pulmonology Routine Consulting Provider: [facility] Pulmonology Services Reason for consultation: right sided heart failure/pulm htn Has provider been notified: No DS: Diagnosis Discharge Diagnosis (1) Acute exacerbation of chronic heart failure: Status: Acute (2) Right heart failure: Status: Acute (3) Pulmonary hypertension: Status: Acute (4) Cor pulmonale: Status: Acute (5) COPD (chronic obstructive pulmonary disease): Status: Acute (6) Oxygen dependent: Status: Acute (7) Morbid obesity: Status: Acute DS: Summary Hospital Course Hospital Course: From the history and physical by the admitting hospitalist, Jaleesa Lang NP, 04/21/24: 64 years old male with a history of interstitial lung disease presented from his pulmonologists office with worsening sob and cough. He denied any fever, chills, recent illness, recent travel or sick contacts. 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 In the ER, CXR showing cardiomegaly, pulmonary fibrosis, right middle lobe pneumonia. No fever leukocytosis noted. He was given a dose of Rocephin and azithromycin in the ER. He will be admitted for further management and treatment of possible acute heart failure and pneumonia. 64 year old man with morbid obesity, chronic hypoxia on 4-6L O2, pulmonary hypertension, COPD, interstitial lung disease, persistent atrial fibrillation, and R-sided heart failure who was sent in from Pulmonology clinic due to acute decompensated heart failure. Echocardiography showed severe RV dilation with [id number]-iw-[id number] RV dysfunction and significantly elevated right-sided filling pressures. He had missed bumetanide doses for 5 days. He was admitted to the telemetry unit with hypoxia and volume overload. He was initially hypotensive, so metoprolol and losartan were discontinued. He was exquisitively sensitive to diuretics. Cardiology and Pulmonology were consulted. He underwent diuresis with bumetanide and spironolactone and ended up net negative 32L over the course of the admission. For rate control, metoprolol was replaced with digoxin. He was started on sildenafil. He was treated with a 5-day course of steroids and nebulizer treatments. He was found to have mild thrombocytopenia with platelet count around 90; CBC should be repeated in 1 week. In addition, digoxin level and BMP should be checked then as well. He was discharged home with VNA services and home PT. He will need close follow-up with Pulmonology and Cardiology. Time Attestation Discharge Coordination Time (in mins): 45 Quality: Safe Use of Opioids Does Pt have an Active Cancer Diagnosis on the Problem List?: No Quality: Stroke Does the patient have a stroke diagnosis?: No Physical Exam Vital Signs: Vital Signs: Last Vital Signs Temp 97.1 F 04/29/24 11:07 Pulse 72 04/29/24 11:07 Resp 18 04/29/24 11:07 BP 116/73 04/29/24 11:07 Pulse Ox 94 04/29/24 11:07 O2 Del Method Nasal Cannula 04/29/24 11:07 O2 Flow Rate 2 04/29/24 11:07 Oxygen Flow Rate 4 04/21/24 10:50 BMI result Body Mass Index 42.7 Gen: in no acute distress HEENT: sclera anicteric, moist mucus membranes Neck: supple, no JVD Lungs: clear to auscultation bilaterally Heart: regular rate and rhythm, systolic murmur LSB Abd: soft, non-tender, non-distended Ext: 1+ bilateral edema to legs with chronic venous stasis changes Skin: warm/well-perfused Neuro: alert and oriented x3, no focal findings Psych: appropriate affect DS: Data Data Completed and Pending Completed studies during hospitalization [Text1]: Laboratory Results WBC 5.6 X10*3/uL (4.8-10.8) 04/22/24 05:53 RBC 6.06 X10*6/uL (4.60-5.80) H 04/22/24 05:53 Hgb 18.7 g/dl (14.0-18.0) H 04/22/24 05:53 Hct 54.5 % (42.0-52.0) H 04/22/24 05:53 MCV 89.9 fL (80.0-98.0) 04/22/24 05:53 MCH 30.9 pg (27.0-33.0) 04/22/24 05:53 MCHC 34.3 g/dl (31.0-36.0) 04/22/24 05:53 RDW 19.1 % (11.0-16.0) H 04/22/24 05:53 Plt Count 90 X10*3/uL (160-400) L 04/22/24 05:53 MPV 11.3 fL (9.4-12.4) 04/22/24 05:53 Immature Gran % (Auto) 0.5 % (0.0-0.4) H 04/22/24 05:53 Neut % (Auto) 77.9 % (45-73) H 04/22/24 05:53 Lymph % (Auto) 16.7 % (20-40) L 04/22/24 05:53 Potter % (Auto) 4.7 % (2-11) 04/22/24 05:53 Eos % (Auto) 0.0 % (0-4) 04/22/24 05:53 Baso % (Auto) 0.2 % (0-2) 04/22/24 05:53 Lymph # (Auto) 0.9 X10*3/uL (1.2-4.9) L 04/22/24 05:53 Potter # (Auto) 0.3 X10*3/uL (0.1-1.2) 04/22/24 05:53 Eos # (Auto) 0.0 X10*3/uL (0.0-0.4) 04/22/24 05:53 Baso # (Auto) 0.0 X10*3/uL (0.0-0.2) 04/22/24 05:53 Abs Immat Gran (auto) 0.03 X10*3/uL (0.00-0.03) 04/22/24 05:53 Absolute Neuts (auto) 4.4 x10*3/uL (2.0-8.3) 04/22/24 05:53 Absolute Nucleated RBC 0.000 X10*3/uL (0.0-0.012) 04/22/24 05:53 Nucleated RBC % (auto) 0.0 /100WBC (0.0-0.2) 04/22/24 05:53 Hold Purple Top SEE NOTE 04/28/24 06:06 PT 24.5 SEC (10.9-12.4) H 04/21/24 11:13 INR 2.1 (0.9-1.1) H 04/21/24 11:13 VBG pH 7.43 (7.32-7.43) 04/21/24 11:19 VBG pCO2 36 mmHg 04/21/24 11:19 VBG pO2 64 mmHg 04/21/24 11:19 VBG HCO3 24 mmol/L (22-26) 04/21/24 11:19 VBG O2 Saturation 91.0 % 04/21/24 11:19 VBG Base Excess 0.6 mmol/L 04/21/24 11:19 Sodium 138 mmol/L (135-145) 04/29/24 06:11 Potassium 3.6 mmol/L (3.3-5.1) 04/29/24 06:11 Chloride 102 mmol/L (96-108) 04/29/24 06:11 Carbon Dioxide 27 mmol/L (22-29) 04/29/24 06:11 Anion Gap 13 (12-20) 04/29/24 06:11 BUN 23 mg/dL (9-16) H 04/29/24 06:11 Creatinine 0.78 mg/dL (0.5-1.4) 04/29/24 06:11 Estim Creat Clear Calc 150.3 04/29/24 06:11 Estimated GFR > 60 04/29/24 06:11 Random Glucose 90 mg/dL (60-115) 04/29/24 06:11 Estimat Average Glucose 123 mg/dL 04/22/24 05:53 Hemoglobin A1c % 5.9 % (<6.0) 04/22/24 05:53 Lactic Acid 1.5 mmol/L (0.5-2.0) 04/21/24 12:48 Calcium 8.9 mg/dL (8.4-10.2) 04/29/24 06:11 Magnesium 2.1 mg/dL (1.6-2.6) 04/28/24 06:06 Total Bilirubin 2.6 mg/dL (0.0-1.0) H 04/22/24 05:53 AST 49 U/L (5-37) H 04/22/24 05:53 ALT 18 U/L (0-40) 04/22/24 05:53 Alkaline Phosphatase 271 U/L (39-117) H 04/22/24 05:53 Troponin I High Sens 5.3 ng/L (<3.5-35.0) 04/21/24 11:13 B-Natriuretic Peptide 1082 pg/mL (<100) H 04/29/24 06:11 Total Protein 6.4 g/dL (6.5-8.0) L 04/22/24 05:53 Albumin 3.5 g/dL (3.5-5.0) 04/22/24 05:53 Influenza Type A (PCR) NEGATIVE (Negative) 04/21/24 11:06 Influenza Type B (PCR) NEGATIVE (Negative) 04/21/24 11:06 RSV RNA Qual (PCR) NEGATIVE (Negative) 04/21/24 11:06 SARS-CoV-2 RNA (RT-PCR) NEGATIVE (Negative) 04/21/24 11:06 Impressions Chest X-Ray 04/21/24 11:05 IMPRESSION: Cardiomegaly and pulmonary fibrosis. Right middle lobe pneumonia. Follow-up is recommended to document resolution. Electronically signed by: Anuj Chacko MD 04/21/2024 11:58 AM EDT Discharge Plan Discharge Anticipated Discharge Date/Time: 04/29/24 12:22 Patient Disposition: Home Health Service Discharge Diagnosis: R-sided heart failure interstitial lung disease thrombocytopenia Referrals: Radha GERMAIN [Outside] - 1 Week Maryana Crook PA-C [Primary Care Provider] - 1 Week Niels Lang MD [Physician] - 2 Weeks Maxwell Enriquez MD [Physician] - 2 Weeks Discharge Medications: New spironolactone 25 mg Tablet 25 mg PO BID Qty: 60 0RF Protocol: Hold for SBP< HOLD for SBP < : 90 bumetanide 1 mg Tablet 1 mg PO BID@0800,1700 Qty: 60 0RF Protocol: Hold for SBP< HOLD for SBP < : 90 digoxin 125 mcg (0.125 mg) Tablet 0.125 mg PO DAILY Qty: 30 0RF Protocol: Hold for HR <: HOLD for HR < : 60 sildenafil (pulm.hypertension) 20 mg Tablet 10 mg PO TID Qty: 90 0RF Continued rosuvastatin 20 mg tablet 20 mg PO BEDTIME 90 Days Qty: 90 0RF Anoro Ellipta 62.5-25 mcg/actuation blister with device 1 inh inhalation DAILY 90 Days Qty: 3 3RF apixaban 5 mg tablet 5 mg PO BID Qty: 60 3RF multivitamin Tablet 1 tab PO DAILY vitamin B complex Tablet 1 tab PO DAILY calcium carbonate 500 mg calcium (1,250 mg) Tablet 500 mg PO DAILY aspirin [Adult Low Dose Aspirin] 81 mg tablet,delayed release (DR/EC) 81 mg PO DAILY omega-3 fatty acids-fish oil [Fish Oil] 360-1,200 mg capsule 1 cap PO DAILY cholecalciferol (vitamin D3) 50 mcg (2,000 unit) capsule 50 mcg PO DAILY (DME) Oxygen Home Use Kit See Rx Instructions .Route Rx Instructions: As directed dapagliflozin propanediol [Farxiga] 10 mg tablet 10 mg PO DAILY Qty: 90 3RF coQ10 (ubiquinol) [Qunol Reyes CoQ10] 100 mg capsule 100 mg PO DAILY Discontinued bumetanide 2 mg tablet 2 mg PO DAILY metoprolol tartrate 100 mg tablet 100 mg PO BID 90 Days Qty: 180 3RF losartan 100 mg tablet 50 mg PO DAILY Discharge Orders: Discharge Order (Routine); Ordered 04/29/24 Ordered By: Nallely Back Diet: Low salt diet Activity on Discharge: As tolerated Stand Alone Forms: Patient Portal Discharge page Print Language: [place] Other Ambulatory Orders: Basic Metabolic Panel (Routine) Timeframe: 1 Week Facility: [facility] - Location: Laboratory Ordered By: Nlalely Back Complete Blood Count Auto Diff (Routine) Timeframe: 1 Week Facility: [facility] - Location: Laboratory Ordered By: Nallely Back Digoxin (Routine) Timeframe: 1 Week Facility: [facility] - Location: Laboratory Ordered By: Nallely Back Care Plan Goals: cardiopulmonary health Health Concerns: R-sided heart failure interstitial lung disease thrombocytopenia Plan of Treatment: Low-sodium diet: less than 2000 mg of sodium daily. Weigh yourself daily and call your doctor if your weight goes up by more than 3 lb/day or 5 lb/week. take bumetanide 1 mg twice daily take spironolactone 25 mg twice daily stop metoprolol + losartan start digoxin 125 mcg once daily take sildenafil 10 mg 3x a day completed antibiotics labs in 1 week: CBCd, BMP, digoxin level follow up with Cardiology in 2 weeks, Pulmonology in 2 weeks Please follow up with your primary care doctor within 1 week. Return to the hospital if you experience recurrent or worsening symptoms. Assessment: See Discharge Summary.
== END 2024-04-29 13:25 | disposition home health service (06) | DRG 291 ==
LOC: HO.ED 10:58 → HO.EDOVER 12:57 → HO.S3 19:15 → HO.IMC 04-22 14:21
PROVIDERS: Internal Medicine; Admitting Provider Nurse Practitioner Acute Care; Emergency Provider Emergency Medicine; Visit Provider Family Medicine
DX: I11.0 Hypertensive heart disease with heart failure (principal); I50.33 Acute on chronic diastolic (congestive) heart failure; J96.21 Acute and chronic respiratory failure with hypoxia; J18.9 Pneumonia, unspecified organism; I48.19 Other persistent atrial fibrillation; Z68.41 Body mass index [BMI] 40.0-44.9, adult; J44.0 Chronic obstructive pulmonary disease with (acute) lower respiratory infection; I47.20 Ventricular tachycardia, unspecified; E66.2 Morbid (severe) obesity with alveolar hypoventilation; E78.5 Hyperlipidemia, unspecified; D69.59 Other secondary thrombocytopenia; I50.811 Acute right heart failure; I95.9 Hypotension, unspecified; I27.81 Cor pulmonale (chronic); I27.29 Other secondary pulmonary hypertension; Z71.3 Dietary counseling and surveillance; D75.1 Secondary polycythemia; T50.1X6A Underdosing of loop [high-ceiling] diuretics, initial encounter; Z20.822 Contact with and (suspected) exposure to COVID-19; Z99.81 Dependence on supplemental oxygen; Z87.891 Personal history of nicotine dependence; Z79.01 Long term (current) use of anticoagulants; Z79.82 Long term (current) use of aspirin; Z79.899 Other long term (current) drug therapy
CPT/HCPCS: 0241U; 36415; 71046; 80048; 80053; 82803; 83036; 83605; 83735; 83880; 84484; 85025; 85610; 87040; 93005; 93306; 93308; 94660; 97162; 99212; 99285; J0456; J0696; J1160; J1940; J2919; J3475; P9047; Q9957

== ENCOUNTER → 2024-04-21 10:52 | Outpatient (BNV) | payer MEDICARE, SELFPAY ==
[2022-08-10 10:10] VITALS: BMI 42.4
== END ==
PROVIDERS: Admitting Provider Nurse Practitioner Acute Care; Emergency Provider Emergency Medicine; Visit Provider Internal Medicine Cardiovascular Disease
DX: I48.91 Unspecified atrial fibrillation (principal); I45.10 Unspecified right bundle-branch block
CPT/HCPCS: 93010

== ENCOUNTER → 2024-04-21 11:05 | Outpatient (BNV) | payer MEDICARE, SELFPAY ==
[2022-08-10 10:10] VITALS: BMI 42.4
== END ==
PROVIDERS: Emergency Provider Emergency Medicine; Visit Provider Radiology Diagnostic Radiology
DX: I51.7 Cardiomegaly (principal); J18.1 Lobar pneumonia, unspecified organism; J84.10 Pulmonary fibrosis, unspecified
CPT/HCPCS: 71046

== ENCOUNTER 2024-04-21 12:50 | Outpatient (BNV) | payer MEDICARE, SELFPAY ==
[2022-08-10 10:10] VITALS: BMI 42.4
== END 2024-04-22 07:00 ==
PROVIDERS: Admitting Provider Nurse Practitioner Acute Care; Emergency Provider Emergency Medicine; Visit Provider Internal Medicine Cardiovascular Disease
DX: I50.810 Right heart failure, unspecified (principal); I51.7 Cardiomegaly; I36.1 Nonrheumatic tricuspid (valve) insufficiency; I36.8 Other nonrheumatic tricuspid valve disorders
CPT/HCPCS: 93306

== ENCOUNTER 2024-04-21 12:50 | Outpatient (BNV) | payer MEDICARE, SELFPAY ==
[2022-08-10 10:10] VITALS: BMI 42.4
== END 2024-04-25 07:00 ==
PROVIDERS: Admitting Provider Nurse Practitioner Acute Care; Emergency Provider Emergency Medicine; Visit Provider Internal Medicine Cardiovascular Disease
DX: I50.810 Right heart failure, unspecified (principal); I27.20 Pulmonary hypertension, unspecified; I36.1 Nonrheumatic tricuspid (valve) insufficiency; Z95.4 Presence of other heart-valve replacement; I51.7 Cardiomegaly; I48.91 Unspecified atrial fibrillation; I45.10 Unspecified right bundle-branch block; I49.3 Ventricular premature depolarization
CPT/HCPCS: 93010; 93308

== ENCOUNTER → 2024-04-21 12:50 | Outpatient (BNV) | payer MEDICARE, SELFPAY ==
[2022-08-10 10:10] VITALS: BMI 42.4
== END ==
PROVIDERS: Admitting Provider Nurse Practitioner Acute Care; Emergency Provider Emergency Medicine; Visit Provider Internal Medicine Cardiovascular Disease
DX: I50.810 Right heart failure, unspecified (principal)
CPT/HCPCS: 99223

== ENCOUNTER → 2024-04-21 12:50 | Outpatient (BNV) | payer MEDICARE, SELFPAY ==
[2022-08-10 10:10] VITALS: BMI 42.4
== END ==
PROVIDERS: Admitting Provider Nurse Practitioner Acute Care; Emergency Provider Emergency Medicine; Visit Provider Nurse Practitioner Acute Care
DX: I50.9 Heart failure, unspecified (principal)
CPT/HCPCS: 99223; 99231; 99232; 99239; G0180

== ENCOUNTER → 2024-04-21 12:50 | Outpatient (BNV) | payer MEDICARE, SELFPAY ==
[2022-08-10 10:10] VITALS: BMI 42.4
== END ==
PROVIDERS: Admitting Provider Nurse Practitioner Acute Care; Emergency Provider Emergency Medicine; Visit Provider Internal Medicine Pulmonary Disease
DX: J43.1 Panlobular emphysema (principal); I27.81 Cor pulmonale (chronic); I27.20 Pulmonary hypertension, unspecified; I50.32 Chronic diastolic (congestive) heart failure
CPT/HCPCS: 99232

== ENCOUNTER 2024-05-07 14:44 | Outpatient (AMB) | payer MEDICARE, SELFPAY ==
[2024-04-30 10:32] VITALS: BMI 42.4
--- NOTE | 2024-05-07 15:12 | A.OFFVIS_ITS ---
Vital Signs 05/07/24 15:13 Height 6 ft 2 in Weight 258 lb BMI 33.1 BP 122/70 Blood Pressure Location Lt brachial Position Sitting Pulse 78 Pulse Source Pulse Oximeter Intake Visit Reasons: [facility] ED F/U Allergies ciprofloxacin [From CIPRO] Allergy (Intermediate, Verified 04/21/24 10:51) DIFFICULTY BREATHING vancomycin [VANCOMYCIN] Allergy (Intermediate, Verified 04/21/24 10:51) RASH, rash over whole body Medication List - Last Reconciled 05/07/24 by Fabio Massey NP apixaban 5 mg PO BID aspirin (Adult Low Dose Aspirin) 81 mg PO DAILY bumetanide 1 mg See Protocol PO BID@0800,1700 calcium carbonate 500 mg PO DAILY cholecalciferol (vitamin D3) 50 mcg PO DAILY coQ10 (ubiquinol) (Qunol Reyes CoQ10) 100 mg PO DAILY dapagliflozin propanediol (Farxiga) 10 mg PO DAILY digoxin 0.125 mg See Protocol PO DAILY multivitamin 1 tab PO DAILY omega-3 fatty acids-fish oil 360-1,200 mg (Fish Oil) 1 cap PO DAILY Oxygen Home Use As directed rosuvastatin 20 mg PO BEDTIME 90 days sildenafil (pulm.hypertension) 10 mg (1/2 x 20 mg) PO TID spironolactone 25 mg See Protocol PO BID umeclidinium-vilanterol 62.5-25 mcg/actuation (Anoro Ellipta) 1 inh inhalation DAILY 90 days vitamin B complex 1 tab PO DAILY HPI Comments Details: This is a 64-year-old male patient presenting for a hospital discharge follow-up visit. Patient with history of mitral valve repair, chronic diastolic heart failure, diabetes, hypertension, COPD, AFib, oxygen-dependent at 4 L/min, and pulmonary hypertension who was sent to the ER from the pulmonology office for significant volume overload due to missing his diuretics accidentally for 5 days.patient was diuresed with Lasix drip and Bumex and for rate control he was given digoxin in place of metoprolol. Patient was also started on sildenafil for pulmonary hypertension which patient states he was not able to start due to prior issues. Today patient states he is feeling well overall and reports his chronic shortness of breath otherwise denies cardiac symptoms including exertional chest pain, orthopnea, PND, leg edema, palpitations, dizziness, fatigue, presyncope, or syncope. Patient states he has been compliant with all his home medications. [facility] Medical History (Updated 05/07/24 @ 16:34 by Fabio Massey NP) Pulmonary hypertension Pneumonia Chronic diastolic (congestive) heart failure Morbid obesity due to excess calories Mitral stenosis SOB (shortness of breath) Cor pulmonale Dyspnea Oxygen dependent Chronic hypoxemic respiratory failure Sleep apnea COPD (chronic obstructive pulmonary disease) Hyperlipidemia Atrial fibrillation Hypertension, essential Current use of anticoagulant therapy Surgical History History of carpal tunnel surgery History of colonoscopy History of thumb surgery History of mitral valve repair History of umbilical hernia History of tonsillectomy History of vasectomy Family History Father No problems noted. Mother No problems noted. Brother No problems noted. Sister Mental health disorder Sister No problems noted. Sister No problems noted. Sister No problems noted. Son No problems noted. Daughter No problems noted. Social History Household Members: None Housing: Apartment Do you presently have visiting nurse or other home services: Yes (home care twice a week) Alcohol intake: former Patient Tobacco Use Status: Former Tobacco user Tobacco use type: Cigarette Years Smoked: 25 e-Cigarette/Vaping Use: Never Used Second Hand Smoke Exposure: Yes (cigar smoke) Substance Use Type: Marijuana Advance Directives Date on File: 07/12/20 service: No Current occupational status: disabled Cognitive needs: No Hearing needs: No Vision needs: Yes Review of Systems Const Denies weakness ENT Denies dizziness Card Denies chest pain, Denies chest pain with activity, Denies syncope, Denies rapid heart rate, Denies pedal edema, Denies edema, Denies leg edema, Denies lightheadedness, Denies palpitations, Denies dyspnea, Denies dyspnea on exertion and Denies orthopnea Resp Denies cough, Denies dyspnea and Denies dyspnea on exertion GI Denies hematochezia and Denies change in stool character Musc Denies abnormal gait, Denies muscle cramps, Denies muscle weakness, Denies numbness, Denies radiating pain into limb and Denies tingling Neuro Denies abnormal gait, Denies dizziness, Denies syncope, Denies numbness, Denies tingling and Denies weakness Endo Denies palpitations Physical Exam Vital Signs: Last Vital Signs Pulse 78 05/07/24 15:13 BP 122/70 05/07/24 15:13 BMI result Body Mass Index 33.1 Const General: cooperative, healthy appearing, comfortable and no acute distress Orientation/consciousness: patient oriented x3 HEENT Head: Yes normal to inspection Neck Neck: Yes normal visual inspection, Yes trachea midline and Yes supple Chest Chest palpation & inspection: normal inspection of the chest Resp Effort & Inspection: normal respiratory effort Auscultation: clear to auscultation bilaterally, no crackles, no rales, no rhonchi and no wheezes Cardio Jugular venous distension: no JVD Palpation: normal PMI Rate: regular rate Rhythm: regular rhythm Heart sounds: S1 normal heart sound present, S2 normal heart sound present, no click, no gallops, Murmur heart sound present (at left sternal border) and no rubs Peripheral pulses: Peripheral pulses 2+ throughout GI Inspection: Yes normal to inspection Palpation (GI): Soft to palpation Auscultation: normal bowel sounds Skin General skin exam: no rashes or lesions noted Neuro General: patient oriented x3 Extrem General: Yes normal to inspection, No no pedal edema and No calf tenderness Psych Appearance: grossly normal Mental Status: mental status grossly normal Speech and movement: Normal speech and movement present Assessment & Plan Assessment & Plan (1) Right heart failure: Code(s): I50.810 - Right heart failure, unspecified Category: Medical Plan: 04/25/2024-echo study during hospitalization showed a EF between 60-65%, flatten ed septum in systole and diastole, severely increased RV cavity, moderate to severely decreased RV systolic function. Patient was offered to be transferred to [facility] for cor pulmonale but patient refused this and was treated supportively. Continue Bumex, spironolactone, digoxin, and Farxiga. Clinically euvolemic today. We will repeat the echo before his next visit. (2) Pulmonary hypertension: Code(s): I27.20 - Pulmonary hypertension, unspecified Category: Medical Plan: Continue Bumex and spironolactone therapy. We will contact Pulmonary office to help the patient with prior Auth on sildenafil. Continue with his oxygen therapy and BiPAP therapy at nighttime. (3) Persistent atrial fibrillation: Code(s): I48.19 - Other persistent atrial fibrillation Category: Medical Plan: Continue Eliquis for full anticoagulation therapy. Denies any signs of bleeding or falls. Continue digoxin for rate control approach. We will monitor labs periodically. (4) Status post mitral valve repair: Code(s): Z98.890 - Other specified postprocedural states Category: Surgical Plan: As above. (5) Hospital discharge follow-up: Code(s): Z09 - Encounter for follow-up examination after completed treatment for conditions other than malignant neoplasm Plan: Continue heart healthy diet, regular exercise as tolerated, losing weight, med compliance, and management of his vascular risk factors. We will follow up in 3 months. In the interim, the patient will call the office with any concerns or change in symptoms. This note was generated using voice recognition software. While every effort has been made to ensure accuracy and proper operating room manager, there may be occasional errors that could affect the content or meaning of the described symptoms. Orders: Orders CA echo transthoracic complete 3 Months I50.32 - Chronic diastolic (congestive) heart failure Coding Level of Care Code Est Pt Level 4 (51745) Complex EM visit Add On G2211 Diagnoses Right heart failure I50.810 Pulmonary hypertension I27.20 Persistent atrial fibrillation I48.19 Status post mitral valve repair Z98.890 Hospital discharge follow-up Z09 Time Spent (min) 35 Comment Time spent in reviewing the chart, test results, assessment, counseling and documentation.
[2024-05-07 15:13] VITALS: BP 122/70; PULSE 78; BMI 33.1
--- OUTSIDE RECORDS SUMMARY | 2024-05-07 17:20 | XMS_ITS ---
Author Organization [facility] Address [address] [place] [address] Care Team Providers Care Semiconductor Packages Tester Name Role Phone ALEX RAJAN Unavailable [phone] REASON FOR VISIT ins referral - pulmo Encounters Encounter Location Date Provider Diagnosis [facility] [address] [facility] [address] [place] [address] 04/16/2024 ALEX RAJAN PLAN OF TREATMENT Next Appt Details Provider Name:ALEX Arango, 05/08/2024 11:00:00 AM, [address] [facility], [address], [place], [address], Progress Notes * Ketan RICHARDDOB:1960 ( 64 yo M)Acc No.[id number]:04/16/2024 Patient:??JOSE MANUELKetan Miranda :1960?Age:64 Y?Sex:Jerson hayden Address:[address] [place] [address] * true * Date:??
--- OUTSIDE RECORDS SUMMARY | 2024-05-07 17:20 | XMS_ITS ---
Author Organization [facility] Address [address] [place] [address] Care Team Providers Care Wood Science Professor Name Role Phone ALEX RAJAN [facility] [phone] Encounters Encounter Location Date Provider Diagnosis [address] [facility] [address] [place] [address] 04/30/2024 ALEX RAJAN PLAN OF TREATMENT Next Appt Details Provider Name:ALEX Arango, 05/08/2024 11:00:00 AM, [address] [facility], [facility] [address], [place], [address], Progress Notes * Ketan RICHARDDOB:1960 ( 64 yo M)Acc No.[id number]:04/30/2024 Progress Notes Patient:??Ketan RICHARD Provider:??ALEX RAJAN PA-C :1960?Age:64 Y?Sex:Ma le Date:04/30/2024 Address:[address] [place] [address] [place], [phone] Subjective: * Chief Complaints: * ? * Medical History:?? Objective: Assessment: Plan: * Treatment: * Images: Billing Information: * Visit Code:?? * Procedure Codes:?? Care Plan Details* * Sign off status: Pending * Provider:??ALEX RAJAN PA-C Date:?? 04/30/2024
--- OUTSIDE RECORDS SUMMARY | 2024-05-07 17:20 | XMS_ITS ---
Author Organization [facility] Address [address] [place] [address] Care Team Providers Care Drop Worker Name Role Phone ALEX RAJAN [phone] REASON FOR VISIT hosp f/u Encounters Encounter Location Date Provider Diagnosis [address] [facility] [address] [place] [address] 04/29/2024 ALEX RAJAN PLAN OF TREATMENT Next Appt Details Provider Name:ALEX Arango, 05/08/2024 11:00:00 AM, [address] [facility], [address], [place], [address], Progress Notes * Ketan RICHARDDOB:1960 ( 64 yo M)Acc No.[id number]:04/29/2024 Patient:??Ketan RICHARD :1960?Age:64 Y?Sex:Jerson blake Address:[address] [place] [address] * true * Date:??
--- OUTSIDE RECORDS SUMMARY | 2024-05-07 17:20 | XMS_ITS | Clinical Summary ---
Author Organization [facility] Address [address] [place] [address] Phone Care Team Providers Care Retail Custodial Associate Name Role Phone Trent Stanley MD Primary Care Provider [phone] Allergies Active Allergy Reactions Criticality Noted Date [...] Only [facility] [address] [place] [address] Dale Hebert [...] patient's age to complete this topic [place] [address] [place] [address] [place] [address] Care Teams Retail Custodial Associate Relationship Specialty Start Date End Date Trent Stalney MD [address] [place] [address] PCP - General Internal Medicine 11/15/23
--- OUTSIDE RECORDS SUMMARY | 2024-05-07 17:20 | XMS_ITS | Patient Health Record ---
Author Organization [facility] Address [address] [place] [address] Care Team Providers Care Telegraph Service Rater Name Role Phone ALEX RAJAN Unavailable [phone] ALLERGIES Allergen (clinical drug ingredient) Drug/Non Drug [...] 0 RR_SystolicBP 0 REASON FOR REFERRAL Reason [facility]/ Dr. Lang Diagnosis 1 Chronic obstructive asthma (J44.9) Referral Organization [address] Referring Provider First Name ALEX Referring Provider Last Name SKIDMORE Referring Provider Speciality Preventive Medicine Referred Provider Specialty Pulmonology General Notes Kaylee Mata 024 04:21:20 PM > Referral faxed over to Dr. Niels Lang Referral Priority Routine Reason [employer] Diagnosis 1 Shortness of breath (R06.02) Referral Organization [address] Referring Provider First Name ALEX Referring Provider Last Name SKIDMORE Referring Provider Speciality Preventive Medicine Referred Provider [...] Problem Coagulation defect, unspecified (D68.9) Active confirmed [id number] Problem Paroxysmal atrial fibrillation (I48.0) Active confirmed Paroxysmal atrial fibrillation (512249443) Problem Chronic diastolic (congestive) heart failure (I50.32) Active confirmed Chronic diastolic heart failure (027057211) Problem Heart failure, unspecified (I50.9) Active confirmed Heart failure (51334032) Problem Shortness of breath (R06.02) Active confirmed Shortness of breath (133105176) Problem Chronic congestive heart failure, unspecified heart failure type (I50.9) Active confirmed 61347954 Problem Atrial fibrillation, unspecified type (I48.91) Active confirmed 23842919 Problem Arthritis (M19.90) Active confirmed Arthritis (6707194) Problem Chronic obstructive pulmonary disease, unspecified COPD type (J44.9) Active confirmed 28008412 Problem Pulmonary hypertension (I27.20) Active confirmed Pulmonary hypertension (32474432) Problem Advance care planning (Z71.89) Active confirmed 099586429 Problem Primary hypertension (I10) Active confirmed 00438110 Problem Chronic atrial fibrillation (I48.20) Active confirmed 016932310 Problem Chronic obstructive asthma (J44.9) Active confirmed Chronic obstructive asthma co-occurrent with acute exacerbation of asthma (disorder) (300316685220841 02) Problem COPD without exacerbation (J44.9) Active confirmed Chronic obstructive lung disease (12791470) Problem Medical orders for life-sustaining treatment (MOLST) form in chart (Z78.9) Active confirmed 454397788 Problem Need for home health care (Z74.2) Active confirmed 428391163 VITAL SIGNS Heart Rate 74 /min 01/22/2024 Respiratory Rate 24 /min 10/16/2023 Blood pressure diastolic 68 mm Hg 01/22/2024 Oximetry 95 % 01/22/2024 Height 71 in 01/22/2024 Blood pressure systolic 104 mm Hg 01/22/2024 Weight 312 lbs 01/22/2024 BMI 43.51 kg/m2 01/22/2024 Encounters Encounter Location Date Provider Diagnosis [address] [place] [address] 04/30/2024 [facility] [address] [place] [address] 10/02/2023 [facility] Chronic congestive heart failure, unspecified heart failure type I50.9 ; Chronic obstructive pulmonary disease, unspecified COPD type J44.9 ; Atrial fibrillation, unspecified type I48.91 and Primary hypertension I10 [address] [place] [address] 10/16/2023 [facility] COPD without exacerbation J44.9 ; Pulmonary hypertension I27.20 ; Chronic diastolic (congestive) heart failure I50.32 ; Chronic atrial fibrillation I48.20 ; Primary hypertension I10 and Advance care planning Z71.89 [address] [place] [address] 01/22/2024 [facility] Chronic congestive heart failure, unspecified heart failure type I50.9 ; Atrial fibrillation, unspecified type I48.91 ; Primary hypertension I10 ; Chronic obstructive pulmonary disease, unspecified COPD type J44.9 ; Pulmonary hypertension I27.20 and Need for home health care Z74.[address] [place] [address] 10/17/2023 [facility] [address] [place] [address] 10/23/2023 [facility] [address] [place] [address] 10/24/2023 [facility] [address] [place] [address] 10/30/2023 [facility] [address] [place] [address] 11/06/[address] [place] [address] 11/08/2023 ALEX SKIDMORE [address] [place] [address] 11/09/2023 ALEX SKIDMORE [address] [place] [address] 11/29/[address] [place] [address] 12/21/2023 ALEX SKIDMORE [address] [place] [address] 12/26/2023 ALEX SKIDMORE [address] [place] [address] 01/01/[address] [place] [address] 01/22/[address] [place] [address] 04/16/2024 [facility] [address] [place] [address] 04/29/2024 ALEX [facility] Encounter Date Diagnosis Assessment [...] and rosuvastatin 20 mg daily. Follows with rounding machine operator Dr. Enriquez with [facility]. Most recent INR drawn 10/01/2023 -resulted [...] needed for shortness of breath. Follows with stain remover Dr. Lang with [facility]. Plan to request records for continued [...] reviewed. Dictation completed with the use of [employer] voice recognition software, prone to medical misidentifications [...] and rosuvastatin 20 mg daily. Follows with rounding machine operator Dr. Enriquez with [facility]. Most recent INR drawn 10/01/2023 -resulted [...] needed for shortness of breath. Follows with stain remover Dr. Lang with [facility]. Plan to request records for continued [...] reviewed. Dictation completed with the use of [employer] voice recognition software, prone to medical misidentifications [...] today. #CHF/A-fib: Follows with Dr. Enriquez with [facility]. Medical records obtained and reviewed, most [...] needed for shortness of breath. Follows with stain remover Dr. Lang with [facility]. Plan to request records for continued [...] reviewed. Dictation completed with the use of [employer] voice recognition software, prone to medical misidentifications [...] today. #CHF/A-fib: Follows with Dr. Enriquez with [facility]. Medical records obtained and reviewed, most [...] needed for shortness of breath. Follows with stain remover Dr. Lang with [facility]. Plan to request records for continued [...] reviewed. Dictation completed with the use of [employer] voice recognition software, prone to medical misidentifications [...] today. #CHF/A-fib: Follows with Dr. Enriquez with [facility]. Most recent visit 11/2023 during which [...] needed for shortness of breath. Follows with stain remover Dr. Lang with [facility]. Last seen with Dr. Lang late [...] reviewed. Dictation completed with the use of [employer] voice recognition software, prone to medical misidentifications [...] today. #CHF/A-fib: Follows with Dr. Enriquez with [facility]. Most recent visit 11/2023 during which [...] needed for shortness of breath. Follows with stain remover Dr. Lang with [facility]. Last seen with Dr. Lang late [...] reviewed. Dictation completed with the use of [employer] voice recognition software, prone to medical misidentifications [...] today. #CHF/A-fib: Follows with Dr. Enriquez with [facility]. Most recent visit 11/2023 during which [...] needed for shortness of breath. Follows with stain remover Dr. Lang with [facility]. Last seen with Dr. Lang late [...] home health services. Referral sent to international [email or web address] services with goal of setting this up for the patient. All questions answered to the patient's satisfaction. Patient demonstrates understanding of diagnosis and treatments discussed. Follow-up in 3 months, sooner should any questions/concerns arise. Case discussed with collaborating physician Monica Stanley who has reviewed the assessment/plan. Chart, medications, labs, and vital signs reviewed. Dictation completed with the use of [employer] voice recognition software, prone to medical misidentifications [...] today. #CHF/A-fib: Follows with Dr. Enriquez with [facility]. Medical records obtained and reviewed, most [...] needed for shortness of breath. Follows with stain remover Dr. Lang with [facility]. Plan to request records for continued [...] reviewed. Dictation completed with the use of [employer] voice recognition software, prone to medical misidentifications [...] and rosuvastatin 20 mg daily. Follows with rounding machine operator Dr. Enriquez with [facility]. Most recent INR drawn 10/01/2023 -resulted [...] needed for shortness of breath. Follows with stain remover Dr. Lang with [facility]. Plan to request records for continued [...] reviewed. Dictation completed with the use of [employer] voice recognition software, prone to medical misidentifications [...] and rosuvastatin 20 mg daily. Follows with rounding machine operator Dr. Enriquez with [facility]. Most recent INR drawn 10/01/2023 -resulted [...] needed for shortness of breath. Follows with stain remover Dr. Lang with [facility]. Plan to request records for continued [...] reviewed. Dictation completed with the use of [employer] voice recognition software, prone to medical misidentifications [...] today. #CHF/A-fib: Follows with Dr. Enriquez with [facility]. Medical records obtained and reviewed, most [...] needed for shortness of breath. Follows with stain remover Dr. Lang with [facility]. Plan to request records for continued [...] reviewed. Dictation completed with the use of [employer] voice recognition software, prone to medical misidentifications [...] today. #CHF/A-fib: Follows with Dr. Enriquez with [facility]. Most recent visit 11/2023 during which [...] needed for shortness of breath. Follows with stain remover Dr. Lang with [facility]. Last seen with Dr. Lang late [...] for home health services. Referral sent to [facility] services with goal of setting this up for the patient. All questions answered to the patient's satisfaction. Patient demonstrates understanding of diagnosis and treatments discussed. Follow-up in 3 months, sooner should any questions/concerns arise. Case discussed with collaborating physician Monica Stanley who has reviewed the assessment/plan. Chart, medications, labs, and vital signs reviewed. Dictation completed with the use of [employer] voice recognition software, prone to medical misidentifications [...] today. #CHF/A-fib: Follows with Dr. Enriquez with [facility]. Most recent visit 11/2023 during which [...] needed for shortness of breath. Follows with stain remover Dr. Lang with [facility]. Last seen with Dr. Lang late [...] home health services. Referral sent to international [email or web address] services with goal of setting this up for the patient. All questions answered to the patient's satisfaction. Patient demonstrates understanding of diagnosis and treatments discussed. Follow-up in 3 months, sooner should any questions/concerns arise. Case discussed with collaborating physician Monica Stanley who has reviewed the assessment/plan. Chart, medications, labs, and vital signs reviewed. Dictation completed with the use of [employer] voice recognition software, prone to medical misidentifications [...] today. #CHF/A-fib: Follows with Dr. Enriquez with [facility]. Medical records obtained and reviewed, most [...] needed for shortness of breath. Follows with stain remover Dr. Lang with [facility]. Plan to request records for continued [...] reviewed. Dictation completed with the use of [employer] voice recognition software, prone to medical misidentifications [...] today. #CHF/A-fib: Follows with Dr. Enriquez with [facility]. Medical records obtained and reviewed, most [...] needed for shortness of breath. Follows with stain remover Dr. Lang with [facility]. Plan to request records for continued [...] reviewed. Dictation completed with the use of [employer] voice recognition software, prone to medical misidentifications [...] today. #CHF/A-fib: Follows with Dr. Enriquez with [facility]. Most recent visit 11/2023 during which [...] needed for shortness of breath. Follows with stain remover Dr. Lang with [facility]. Last seen with Dr. Lang late [...] for home health services. Referral sent to [facility] with goal of setting this up for the patient. All questions answered to the patient's satisfaction. Patient demonstrates understanding of diagnosis and treatments discussed. Follow-up in 3 months, sooner should any questions/concerns arise. Case discussed with collaborating physician Monica Stanley who has reviewed the assessment/plan. Chart, medications, labs, and vital signs reviewed. Dictation completed with the use of [employer] voice recognition software, prone to medical misidentifications [...] Next Appt Details Provider Name:ALEX ERICK Arango, 05/08/2024 11:00:00 AM, [address], [address], Insurance Providers Payer Name Payer Address Payer Phone Subscriber Number Group Number Insured Name Patient Relationship to Insured Coverage Start Date Coverage End Date [employer] Advantage [address] [place] [address] [id number] Ketan Cho Self - patient [...]
--- OUTSIDE RECORDS SUMMARY | 2024-05-07 17:20 | XMS_ITS | Clinical Summary ---
Author Organization [facility] Address [address] [place] [address] Care Team Providers Care Blood Coordinator Name Role Phone Unavailable Primary Care Provider Unavailabl e Social History Tobacco Use Types Packs/Day Years Used Date Smoking Tobacco: Never Assessed Sex and Gender Information Value Date Recorded Sex Assigned at Not on file Gender Identity Not on file Sexual Orientation Not on file Plan of Treatment Not on file
== END 2024-05-07 15:34 | disposition home or self-care (01) ==
LOC: HO.HCS 14:45
DX: I50.810 Right heart failure, unspecified (principal); I27.20 Pulmonary hypertension, unspecified; I48.19 Other persistent atrial fibrillation; Z98.890 Other specified postprocedural states; Z09 Encounter for follow-up examination after completed treatment for conditions other than malignant neoplasm
CPT/HCPCS: 99214; G2211

== ENCOUNTER → 2024-05-07 14:44 | Outpatient (BNVA) | payer MEDICARE, SELFPAY ==
[2024-04-30 10:32] VITALS: BMI 42.4
== END ==
DX: I11.0 Hypertensive heart disease with heart failure (principal); I50.32 Chronic diastolic (congestive) heart failure; I50.810 Right heart failure, unspecified; I27.20 Pulmonary hypertension, unspecified; I48.19 Other persistent atrial fibrillation; J44.9 Chronic obstructive pulmonary disease, unspecified; Z09 Encounter for follow-up examination after completed treatment for conditions other than malignant neoplasm; Z99.81 Dependence on supplemental oxygen; Z98.890 Other specified postprocedural states
CPT/HCPCS: 99212

== ENCOUNTER 2024-06-09 12:28 | Outpatient (REF) | payer MEDICARE, SELFPAY ==
[2024-04-30 10:32] VITALS: BMI 42.4
--- OUTSIDE RECORDS SUMMARY | 2024-06-09 13:59 | XMS_ITS | Clinical Summary ---
Author Organization [facility] Address [address] [place] [address] Care Team Providers Care Dockworker Name Role Phone Unavailable Primary Care Provider Unavailabl e Social History Tobacco Use Types Packs/Day Years Used Date Smoking Tobacco: Never Assessed Sex and Gender Information Value Date Recorded Sex Assigned at Not on file Gender Identity Not on file Sexual Orientation Not on file Plan of Treatment Not on file
--- OUTSIDE RECORDS SUMMARY | 2024-06-09 13:59 | XMS_ITS | Patient Health Record ---
Author Organization [facility] Address [address] [place] [address] Care Team Providers Care Labeling Machine Operator Name Role Phone ALEX RAJAN Unavailable [phone] ALLERGIES Allergen (clinical drug ingredient) Drug/Non Drug [...] 0 RR_SystolicBP 0 REASON FOR REFERRAL Reason [facility]/ Dr. Lang Diagnosis 1 Chronic obstructive asthma (J44.9) Referral Organization [address] Referring Provider First Name ALEX Referring Provider Last Name FLATGAP Referring Provider Speciality Preventive Medicine Referred Provider Specialty Pulmonology General Notes Kaylee Mata 024 04:21:20 PM > Referral faxed over to Dr. Niels Lang Referral Priority Routine Reason [place] Diagnosis 1 Shortness of breath (R06.02) Referral Organization [address] Referring Provider First Name ALEX Referring Provider Last Name FLATGAP Referring Provider Speciality Preventive Medicine Referred Provider Specialty Other Medica l Care General Notes Kaylee Mata 024 04:30:23 PM > Referral sent due to cardiac/pulmonary hx Referral Priority Routine MEDICATIONS Medication SIG (Take, Route, Frequency, Duration) Notes Start Date End Date Status Fish Oil Active Rosuvastatin Calcium 20 MG 1 tablet Oral ly Once a day for 90 days 10/30/2023 Active Aspirin 81 Active B Complex Active Albuterol Active Anoro Ellipta 62.5-25 MCG/ACT Inhalation for 90 Days Activ e Bumetanide 1 MG TAKE 1 TAB ORALLY 2 TIMES A DAY AT 800 AND 1700 Oral for 30 Days Active Digoxin 125 MCG Oral for 30 Days Active Eliquis 5 MG Oral for 30 Days Active Farxiga 10 MG Oral for 90 Days Active Spironolactone 25 MG Oral for 30 Days Active Calcium Carbonate 1250 (500 Ca) MG 1 tablet with food Orally once daily Active PROBLEMS Problem Type ICD Code Onset Dates Problem Status W/U Status Risk SNOMED Code Notes Problem Chronic diastolic (congestive) heart failure (I50.32) Active confirmed Chronic diastolic heart failure (043906388) Problem Shortness of breath (R06.02) Active confirmed Shortness of breath (876773942) Problem Other hyperlipidemia (E78.49) Active confirmed 99225323 Problem Arthritis (M19.90) Active confirmed Art hritis (9842721) Problem Chronic obstructive pulmonary disease, unspecified COPD type (J44.9) Active confirmed 55035990 Problem Pulmonary hypertension (I27.20) Active confirmed Pulmonary hypertension (09868427) Problem Chronic atrial fibrillation (I48.20) Active confirmed 521787088 Problem Acute on chronic diastolic congestive heart failure (I50.33) Active confirmed 038213177 Problem Persistent atrial fibrillation (I48.19) Active confirmed 979363105 VITAL SIGNS Heart Rate 85 /min 05/08/2024 Respiratory Rate 24 /min 10/16/2023 Oximetry 95 % 05/08/2024 Blood pressure diastolic 82 mm Hg 05/08/2024 Height 71 in 05/08/2024 Blood pressure systolic 134 mm Hg 05/08/2024 Weight 264 lbs 05/08/2024 BMI 36.82 kg/m2 05/08/2024 Encounters Encounter Location Date Provider Diagnosis [address] [facility] [address] [place] [address] 04/30/2024 ALEX RAJAN [address] [facility] [address] [place] [address] 10/02/2023 ALEX RAJAN Chronic congestive heart failure, unspecified heart failure type I50.9 ; Chronic obstructive pulmonary disease, unspecified COPD type J44.9 ; Atrial fibrillation, unspecified type I48.91 and Primary hypertension I10 [address] [place] [address] 10/16/2023 [facility] COPD without exacerbation J44.9 ; Pulmonary hypertension I27.20 ; Chronic diastolic (congestive) heart failure I50.32 ; Chronic atrial fibrillation I48.20 ; Primary hypertension I10 and Advance care planning Z71.89 [address] [facility] [address] [place] [address] 01/22/2024 [facility] Chronic congestive heart failure, unspecified heart failure type I50.9 ; Atrial fibrillation, unspecified type I48.91 ; Primary hypertension I10 ; Chronic obstructive pulmonary disease, unspecified COPD type J44.9 ; Pulmonary hypertension I27.20 and Need for home health care Z74.2 [address] [facility] [address] [place] [address] 05/08/2024 [facility] Chronic obstructive pulmonary disease, unspecified COPD type J44.9 ; Hypoxia R09.02 ; Pulmonary hypertension I27.20 ; Persistent atrial fibrillation I48.19 ; Acute on chronic diastolic congestive heart failure I50.33 ; Other hyperlipidemia E78.49 and Therapeutic drug monitoring Z51.81 [address] [place] [address] 10/17/2023 [facility] [address] [place] [address] 10/23/2023 [facility] [address] [place] [address] 10/24/[address] [facility] [address] [place] [address] 10/30/[address] [facility] [address] [place] [address] 11/06/2023 [facility] [address] [place] [address] 11/08/2023 [facility] [address] [place] [address] 11/09/2023 [facility] [address] [place] [address] 11/29/[address] [place] [address] 12/21/2023 ALEX FLATGAP [address] [place] [address] 12/26/2023 ALEX FLATGAP [address] [place] [address] 01/01/[address] [place] [address] 01/22/[address] [place] [address] 04/16/2024 ALEX FLATGAP [address] [place] [address] 04/29/[address] [place] [address] 05/08/[address] [place] [address] 05/12/2024 ALEX FLATGAP [address] [place] [address] 05/14/2024 ALEX POLLOCKHAM ASSESSMENTS Encounter Date Diagnosis Assessment [...] and rosuvastatin 20 mg daily. Follows with girls swimming coach Dr. Enriquez with [facility]. Most recent INR drawn 10/01/2023 [...] needed for shortness of breath. Follows with machine operations supervisor Dr. Lang with [facility]. Plan to request records for [...] reviewed. Dictation completed with the use of [employer] voice recognition software, prone to medical misidentifications [...] and rosuvastatin 20 mg daily. Follows with girls swimming coach Dr. Enriquez with [facility]. Most recent INR drawn 10/01/2023 [...] needed for shortness of breath. Follows with machine operations supervisor Dr. Lang with [facility]. Plan to request records for [...] reviewed. Dictation completed with the use of [employer] voice recognition software, prone to medical misidentifications [...] today. #CHF/A-fib: Follows with Dr. Enriquez with [facility]. Medical records obtained and reviewed, [...] needed for shortness of breath. Follows with machine operations supervisor Dr. Lang with [facility]. Plan to request records for [...] resuscitated should his heart stop, or be intubated/ventilated , he additionally does not wish to have [...] reviewed. Dictation completed with the use of [employer] voice recognition software, prone to medical misidentifications [...] today. #CHF/A-fib: Follows with Dr. Enriquez with [facility]. Medical records obtained and reviewed, [...] needed for shortness of breath. Follows with machine operations supervisor Dr. Lang with [facility]. Plan to request records for [...] resuscitated should his heart stop, or be intubated/ventilated , he additionally does not wish to have [...] reviewed. Dictation completed with the use of [employer] voice recognition software, prone to medical misidentifications [...] today. #CHF/A-fib: Follows with Dr. Enriquez with [facility]. Most recent visit 11/2023 during [...] measured 104/68. Patient denies current symptoms of dizziness/lightheade dness or any recent syncope/falls. #COPD: Patient on 4 L supplemental oxygen at baseline. O2 saturation stable today at 95%. Patient currently taking Anoro inhaler once daily and using albuterol as needed for shortness of breath. Follows with machine operations supervisor Dr. Lang with [facility]. Last seen with Dr. Lang [...] reviewed. Dictation completed with the use of [employer] voice recognition software, prone to medical misidentifications [...] today. #CHF/A-fib: Follows with Dr. Enriquez with [facility]. Most recent visit 11/2023 during [...] measured 104/68. Patient denies current symptoms of dizziness/lightheade dness or any recent syncope/falls. #COPD: Patient on 4 L supplemental oxygen at baseline. O2 saturation stable today at 95%. Patient currently taking Anoro inhaler once daily and using albuterol as needed for shortness of breath. Follows with machine operations supervisor Dr. Lang with [facility]. Last seen with Dr. Lang [...] home health services. Referral sent to [facility] with goal of setting this up for the patient. All questions answered to the patient's satisfaction. Patient demonstrates understanding of diagnosis and treatments discussed. Follow-up in 3 months, sooner should any questions/concerns arise. Case discussed with collaborating physician Monica Stanley who has reviewed the assessment/plan. Chart, medications, labs, and vital signs reviewed. Dictation completed with the use of [employer] voice recognition software, prone to medical misidentifications and grammatical errors. All errors are unintentional. Although the practitioner does try to identify and correct errors, some may be present. Please do not hesitate to contact the practitioner for clarification. 05/08/2024 Chronic obstructive pulmonary disease, unspecified COPD type (ICD-10 - J44.9) Ketan is a 64-year-old male with a PMH of COPD, pulmonary HTN, A-fib, diastolic heart failure presents for hospital follow-up. Patient admitted for hypoxia and volume overload/decompensat ed heart failure 04/21/2024 - 04/29/2024. 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 ED workup significant for cardiomegaly, pulmonary fibrosis, and right middle lobe pneumonia on CXR. Patient was given a dose of Rocephin and azithromycin and admitted for continued management. While inpatient echocardiogram findings consistent with severe RV dilation, moderate to severe RV systolic dysfunction, and significantly elevated right-sided filling pressures consistent with volume overload. Due to hypotension metoprolol and losartan were discontinued. Patient initially sensitive to diuresis with IV Lasix. Cardiology and pulmonology were consulted at which time the patient underwent diuresis with bumetanide and spironolactone - net negative 32 L over the course of his admission. Digoxin was initiated in place of metoprolol for rate control and the patient was started on sildenafil for pulmonary HTN. #Heart failure: Patient currently taking spironolactone 25 mg twice daily, bumetanide 1 mg twice daily, and Farxiga 10mg once daily. Follows with Dr. Enriquez out of [place], seen in office yesterday. #COPD/pulmonary HTN: Patient currently on 4-6 L supplemental O2 at baseline. Was discharged with script for sildenafil 20 mg 3 times daily, has not yet been approved by his insurance company. Continue Anoro Ellipta inhaler once daily. Patient encouraged to contact pulmonology today for continued care. #A-fib: Metoprolol discontinued due to soft BPs while inpatient. Currently taking Eliquis 5 mg twice daily, also started on digoxin 125 mcg once daily for rate control in place of metoprolol. Saw cardiology yesterday with [facility] - no labs were ordered. Serum digoxin level ordered for continued evaluation. #HLD: Continue rosuvastatin 20 mg once daily and omega-3/fatty acids 360-1200 mg capsule once daily. All questions answered to the patient's satisfaction. Patient demonstrates understanding of diagnosis and treatments discussed. Follow-up at next scheduled appointment, sooner should any questions/concerns arise. Case discussed with collaborating physician Monica Stanley who has reviewed the assessment/plan. Chart, medications, labs, and vital signs reviewed. Dictation completed with the use of [employer] voice recognition software, prone to medical misidentifications and grammatical errors. All errors are unintentional. Although the practitioner does try to identify and correct errors, some may be present. Please do not hesitate to contact the practitioner for clarification. 05/08/2024 Hypoxia (ICD-10 - R09.02) Ketan is a 64-year-old male with a PMH of COPD, pulmonary HTN, A-fib, diastolic heart failure presents for hospital follow-up. Patient admitted for hypoxia and volume overload/decompensat ed heart failure 04/21/2024 - 04/29/2024. 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 ED workup significant for cardiomegaly, pulmonary fibrosis, and right middle lobe pneumonia on CXR. Patient was given a dose of Rocephin and azithromycin and admitted for continued management. While inpatient echocardiogram findings consistent with severe RV dilation, moderate to severe RV systolic dysfunction, and significantly elevated right-sided filling pressures consistent with volume overload. Due to hypotension metoprolol and losartan were discontinued. Patient initially sensitive to diuresis with IV Lasix. Cardiology and pulmonology were consulted at which time the patient underwent diuresis with bumetanide and spironolactone - net negative 32 L over the course of his admission. Digoxin was initiated in place of metoprolol for rate control and the patient was started on sildenafil for pulmonary HTN. #Heart failure: Patient currently taking spironolactone 25 mg twice daily, bumetanide 1 mg twice daily, and Farxiga 10mg once daily. Follows with Dr. Enriquez out of [place], seen in office yesterday. #COPD/pulmonary HTN: Patient currently on 4-6 L supplemental O2 at baseline. Was discharged with script for sildenafil 20 mg 3 times daily, has not yet been approved by his insurance company. Continue Anoro Ellipta inhaler once daily. Patient encouraged to contact pulmonology today for continued care. #A-fib: Metoprolol discontinued due to soft BPs while inpatient. Currently taking Eliquis 5 mg twice daily, also started on digoxin 125 mcg once daily for rate control in place of metoprolol. Saw cardiology yesterday with [facility] - no labs were ordered. Serum digoxin level ordered for continued evaluation. #HLD: Continue rosuvastatin 20 mg once daily and omega-3/fatty acids 360-1200 mg capsule once daily. All questions answered to the patient's satisfaction. Patient demonstrates understanding of diagnosis and treatments discussed. Follow-up at next scheduled appointment, sooner should any questions/concerns arise. Case discussed with collaborating physician Monica Stanley who has reviewed the assessment/plan. Chart, medications, labs, and vital signs reviewed. Dictation completed with the use of [employer] voice recognition software, prone to medical misidentifications and grammatical errors. All errors are unintentional. Although the practitioner does try to identify and correct errors, some may be present. Please do not hesitate to contact the practitioner for clarification. 05/08/2024 Pulmonary hypertension (ICD-10 - I27.20) Ketan is a 64-year-old male with a PMH of COPD, pulmonary HTN, A-fib, diastolic heart failure presents for hospital follow-up. Patient admitted for hypoxia and volume overload/decompensat ed heart failure 04/21/2024 - 04/29/2024. 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 ED workup significant for cardiomegaly, pulmonary fibrosis, and right middle lobe pneumonia on CXR. Patient was given a dose of Rocephin and azithromycin and admitted for continued management. While inpatient echocardiogram findings consistent with severe RV dilation, moderate to severe RV systolic dysfunction, and significantly elevated right-sided filling pressures consistent with volume overload. Due to hypotension metoprolol and losartan were discontinued. Patient initially sensitive to diuresis with IV Lasix. Cardiology and pulmonology were consulted at which time the patient underwent diuresis with bumetanide and spironolactone - net negative 32 L over the course of his admission. Digoxin was initiated in place of metoprolol for rate control and the patient was started on sildenafil for pulmonary HTN. #Heart failure: Patient currently taking spironolactone 25 mg twice daily, bumetanide 1 mg twice daily, and Farxiga 10mg once daily. Follows with Dr. Enriquez out of [place], seen in office yesterday. #COPD/pulmonary HTN: Patient currently on 4-6 L supplemental O2 at baseline. Was discharged with script for sildenafil 20 mg 3 times daily, has not yet been approved by his insurance company. Continue Anoro Ellipta inhaler once daily. Patient encouraged to contact pulmonology today for continued care. #A-fib: Metoprolol discontinued due to soft BPs while inpatient. Currently taking Eliquis 5 mg twice daily, also started on digoxin 125 mcg once daily for rate control in place of metoprolol. Saw cardiology yesterday with [facility] - no labs were ordered. Serum digoxin level ordered for continued evaluation. #HLD: Continue rosuvastatin 20 mg once daily and omega-3/fatty acids 360-1200 mg capsule once daily. All questions answered to the patient's satisfaction. Patient demonstrates understanding of diagnosis and treatments discussed. Follow-up at next scheduled appointment, sooner should any questions/concerns arise. Case discussed with collaborating physician Monica Stanley who has reviewed the assessment/plan. Chart, medications, labs, and vital signs reviewed. Dictation completed with the use of [employer] voice recognition software, prone to medical misidentifications [...] today. #CHF/A-fib: Follows with Dr. Enriquez with [facility]. Most recent visit 11/2023 during [...] measured 104/68. Patient denies current symptoms of dizziness/lightheade dness or any recent syncope/falls. #COPD: Patient on 4 L supplemental oxygen at baseline. O2 saturation stable today at 95%. Patient currently taking Anoro inhaler once daily and using albuterol as needed for shortness of breath. Follows with machine operations supervisor Dr. Lang with [facility]. Last seen with Dr. Lang [...] for home health services. Referral sent to [facility] with goal of setting this up for the patient. All questions answered to the patient's satisfaction. Patient demonstrates understanding of diagnosis and treatments discussed. Follow-up in 3 months, sooner should any questions/concerns arise. Case discussed with collaborating physician Monica Stanley who has reviewed the assessment/plan. Chart, medications, labs, and vital signs reviewed. Dictation completed with the use of [employer] voice recognition software, prone to medical misidentifications [...] today. #CHF/A-fib: Follows with Dr. Enriquez with [facility]. Medical records obtained and reviewed, [...] needed for shortness of breath. Follows with machine operations supervisor Dr. Lang with [facility]. Plan to request records for [...] resuscitated should his heart stop, or be intubated/ventilated , he additionally does not wish to have [...] reviewed. Dictation completed with the use of [employer] voice recognition software, prone to medical misidentifications [...] and rosuvastatin 20 mg daily. Follows with girls swimming coach Dr. Enriquez with [facility]. Most recent INR drawn 10/01/2023 [...] needed for shortness of breath. Follows with machine operations supervisor Dr. Lang with [facility]. Plan to request records for [...] reviewed. Dictation completed with the use of [employer] voice recognition software, prone to medical misidentifications [...] and rosuvastatin 20 mg daily. Follows with girls swimming coach Dr. Enriquez with [facility]. Most recent INR drawn 10/01/2023 [...] needed for shortness of breath. Follows with machine operations supervisor Dr. Lang with [facility]. Plan to request records for [...] reviewed. Dictation completed with the use of [employer] voice recognition software, prone to medical misidentifications [...] today. #CHF/A-fib: Follows with Dr. Enriquez with [facility]. Most recent visit 11/2023 during [...] measured 104/68. Patient denies current symptoms of dizziness/lightheade dness or any recent syncope/falls. #COPD: Patient on 4 L supplemental oxygen at baseline. O2 saturation stable today at 95%. Patient currently taking Anoro inhaler once daily and using albuterol as needed for shortness of breath. Follows with machine operations supervisor Dr. Lang with [facility]. Last seen with Dr. Lang [...] for home health services. Referral sent to [facility] with goal of setting this up for the patient. All questions answered to the patient's satisfaction. Patient demonstrates understanding of diagnosis and treatments discussed. Follow-up in 3 months, sooner should any questions/concerns arise. Case discussed with collaborating physician Monica Stanley who has reviewed the assessment/plan. Chart, medications, labs, and vital signs reviewed. Dictation completed with the use of [employer] voice recognition software, prone to medical misidentifications and grammatical errors. All errors are unintentional. Although the practitioner does try to identify and correct errors, some may be present. Please do not hesitate to contact the practitioner for clarification. 05/08/2024 Persistent atrial fibrillation (ICD-10 - I48.19) Ketan is a 64-year-old male with a PMH of COPD, pulmonary HTN, A-fib, diastolic heart failure presents for hospital follow-up. Patient admitted for hypoxia and volume overload/decompensat ed heart failure 04/21/2024 - 04/29/2024. 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 ED workup significant for cardiomegaly, pulmonary fibrosis, and right middle lobe pneumonia on CXR. Patient was given a dose of Rocephin and azithromycin and admitted for continued management. While inpatient echocardiogram findings consistent with severe RV dilation, moderate to severe RV systolic dysfunction, and significantly elevated right-sided filling pressures consistent with volume overload. Due to hypotension metoprolol and losartan were discontinued. Patient initially sensitive to diuresis with IV Lasix. Cardiology and pulmonology were consulted at which time the patient underwent diuresis with bumetanide and spironolactone - net negative 32 L over the course of his admission. Digoxin was initiated in place of metoprolol for rate control and the patient was started on sildenafil for pulmonary HTN. #Heart failure: Patient currently taking spironolactone 25 mg twice daily, bumetanide 1 mg twice daily, and Farxiga 10mg once daily. Follows with Dr. Enriquez out of [place], seen in office yesterday. #COPD/pulmonary HTN: Patient currently on 4-6 L supplemental O2 at baseline. Was discharged with script for sildenafil 20 mg 3 times daily, has not yet been approved by his insurance company. Continue Anoro Ellipta inhaler once daily. Patient encouraged to contact pulmonology today for continued care. #A-fib: Metoprolol discontinued due to soft BPs while inpatient. Currently taking Eliquis 5 mg twice daily, also started on digoxin 125 mcg once daily for rate control in place of metoprolol. Saw cardiology yesterday with [facility] - no labs were ordered. Serum digoxin level ordered for continued evaluation. #HLD: Continue rosuvastatin 20 mg once daily and omega-3/fatty acids 360-1200 mg capsule once daily. All questions answered to the patient's satisfaction. Patient demonstrates understanding of diagnosis and treatments discussed. Follow-up at next scheduled appointment, sooner should any questions/concerns arise. Case discussed with collaborating physician Monica Stanley who has reviewed the assessment/plan. Chart, medications, labs, and vital signs reviewed. Dictation completed with the use of [employer] voice recognition software, prone to medical misidentifications [...] today. #CHF/A-fib: Follows with Dr. Enriquez with [facility]. Medical records obtained and reviewed, [...] needed for shortness of breath. Follows with machine operations supervisor Dr. Lang with [facility]. Plan to request records for [...] resuscitated should his heart stop, or be intubated/ventilated , he additionally does not wish to have [...] reviewed. Dictation completed with the use of [employer] voice recognition software, prone to medical misidentifications and grammatical errors. All errors are unintentional. Although the practitioner does try to identify and correct errors, some may be present. Please do not hesitate to contact the practitioner for clarification. 05/08/2024 Acute on chronic diastolic congestive heart failure (ICD-10 - I50.33) Ketan is a 64-year-old male with a PMH of COPD, pulmonary HTN, A-fib, diastolic heart failure presents for hospital follow-up. Patient admitted for hypoxia and volume overload/decompensat ed heart failure 04/21/2024 - 04/29/2024. 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 ED workup significant for cardiomegaly, pulmonary fibrosis, and right middle lobe pneumonia on CXR. Patient was given a dose of Rocephin and azithromycin and admitted for continued management. While inpatient echocardiogram findings consistent with severe RV dilation, moderate to severe RV systolic dysfunction, and significantly elevated right-sided filling pressures consistent with volume overload. Due to hypotension metoprolol and losartan were discontinued. Patient initially sensitive to diuresis with IV Lasix. Cardiology and pulmonology were consulted at which time the patient underwent diuresis with bumetanide and spironolactone - net negative 32 L over the course of his admission. Digoxin was initiated in place of metoprolol for rate control and the patient was started on sildenafil for pulmonary HTN. #Heart failure: Patient currently taking spironolactone 25 mg twice daily, bumetanide 1 mg twice daily, and Farxiga 10mg once daily. Follows with Dr. Enriquez out of [place], seen in office yesterday. #COPD/pulmonary HTN: Patient currently on 4-6 L supplemental O2 at baseline. Was discharged with script for sildenafil 20 mg 3 times daily, has not yet been approved by his insurance company. Continue Anoro Ellipta inhaler once daily. Patient encouraged to contact pulmonology today for continued care. #A-fib: Metoprolol discontinued due to soft BPs while inpatient. Currently taking Eliquis 5 mg twice daily, also started on digoxin 125 mcg once daily for rate control in place of metoprolol. Saw cardiology yesterday with [facility] - no labs were ordered. Serum digoxin level ordered for continued evaluation. #HLD: Continue rosuvastatin 20 mg once daily and omega-3/fatty acids 360-1200 mg capsule once daily. All questions answered to the patient's satisfaction. Patient demonstrates understanding of diagnosis and treatments discussed. Follow-up at next scheduled appointment, sooner should any questions/concerns arise. Case discussed with collaborating physician Monica Stanley who has reviewed the assessment/plan. Chart, medications, labs, and vital signs reviewed. Dictation completed with the use of [employer] voice recognition software, prone to medical misidentifications [...] today. #CHF/A-fib: Follows with Dr. Enriquez with [facility]. Most recent visit 11/2023 during [...] measured 104/68. Patient denies current symptoms of dizziness/lightheade dness or any recent syncope/falls. #COPD: Patient on 4 L supplemental oxygen at baseline. O2 saturation stable today at 95%. Patient currently taking Anoro inhaler once daily and using albuterol as needed for shortness of breath. Follows with machine operations supervisor Dr. Lang with [facility]. Last seen with Dr. Lang [...] for home health services. Referral sent to [facility] with goal of setting this up for the patient. All questions answered to the patient's satisfaction. Patient demonstrates understanding of diagnosis and treatments discussed. Follow-up in 3 months, sooner should any questions/concerns arise. Case discussed with collaborating physician Monica Stanley who has reviewed the assessment/plan. Chart, medications, labs, and vital signs reviewed. Dictation completed with the use of [employer] voice recognition software, prone to medical misidentifications [...] today. #CHF/A-fib: Follows with Dr. Enriquez with [facility]. Medical records obtained and reviewed, [...] needed for shortness of breath. Follows with machine operations supervisor Dr. Lang with [facility]. Plan to request records for [...] resuscitated should his heart stop, or be intubated/ventilated , he additionally does not wish to have [...] reviewed. Dictation completed with the use of [employer] voice recognition software, prone to medical misidentifications [...] today. #CHF/A-fib: Follows with Dr. Enriquez with [facility]. Medical records obtained and reviewed, [...] needed for shortness of breath. Follows with machine operations supervisor Dr. Lang with [facility]. Plan to request records for [...] resuscitated should his heart stop, or be intubated/ventilated , he additionally does not wish to have [...] reviewed. Dictation completed with the use of [employer] voice recognition software, prone to medical misidentifications [...] today. #CHF/A-fib: Follows with Dr. Enriquez with [facility]. Most recent visit 11/2023 during [...] measured 104/68. Patient denies current symptoms of dizziness/lightheade dness or any recent syncope/falls. #COPD: Patient on 4 L supplemental oxygen at baseline. O2 saturation stable today at 95%. Patient currently taking Anoro inhaler once daily and using albuterol as needed for shortness of breath. Follows with machine operations supervisor Dr. Lang with [facility]. Last seen with Dr. Lang [...] for home health services. Referral sent to [facility] with goal of setting this up for the patient. All questions answered to the patient's satisfaction. Patient demonstrates understanding of diagnosis and treatments discussed. Follow-up in 3 months, sooner should any questions/concerns arise. Case discussed with collaborating physician Monica Stanley who has reviewed the assessment/plan. Chart, medications, labs, and vital signs reviewed. Dictation completed with the use of [employer] voice recognition software, prone to medical misidentifications and grammatical errors. All errors are unintentional. Although the practitioner does try to identify and correct errors, some may be present. Please do not hesitate to contact the practitioner for clarification. 05/08/2024 Other hyperlipidemia (ICD-10 - E78.49) Ketan is a 64-year-old male with a PMH of COPD, pulmonary HTN, A-fib, diastolic heart failure presents for hospital follow-up. Patient admitted for hypoxia and volume overload/decompensat ed heart failure 04/21/2024 - 04/29/2024. 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 ED workup significant for cardiomegaly, pulmonary fibrosis, and right middle lobe pneumonia on CXR. Patient was given a dose of Rocephin and azithromycin and admitted for continued management. While inpatient echocardiogram findings consistent with severe RV dilation, moderate to severe RV systolic dysfunction, and significantly elevated right-sided filling pressures consistent with volume overload. Due to hypotension metoprolol and losartan were discontinued. Patient initially sensitive to diuresis with IV Lasix. Cardiology and pulmonology were consulted at which time the patient underwent diuresis with bumetanide and spironolactone - net negative 32 L over the course of his admission. Digoxin was initiated in place of metoprolol for rate control and the patient was started on sildenafil for pulmonary HTN. #Heart failure: Patient currently taking spironolactone 25 mg twice daily, bumetanide 1 mg twice daily, and Farxiga 10mg once daily. Follows with Dr. Enriquez out of [place], seen in office yesterday. #COPD/pulmonary HTN: Patient currently on 4-6 L supplemental O2 at baseline. Was discharged with script for sildenafil 20 mg 3 times daily, has not yet been approved by his insurance company. Continue Anoro Ellipta inhaler once daily. Patient encouraged to contact pulmonology today for continued care. #A-fib: Metoprolol discontinued due to soft BPs while inpatient. Currently taking Eliquis 5 mg twice daily, also started on digoxin 125 mcg once daily for rate control in place of metoprolol. Saw cardiology yesterday with [facility] - no labs were ordered. Serum digoxin level ordered for continued evaluation. #HLD: Continue rosuvastatin 20 mg once daily and omega-3/fatty acids 360-1200 mg capsule once daily. All questions answered to the patient's satisfaction. Patient demonstrates understanding of diagnosis and treatments discussed. Follow-up at next scheduled appointment, sooner should any questions/concerns arise. Case discussed with collaborating physician Monica Stanley who has reviewed the assessment/plan. Chart, medications, labs, and vital signs reviewed. Dictation completed with the use of [employer] voice recognition software, prone to medical misidentifications and grammatical errors. All errors are unintentional. Although the practitioner does try to identify and correct errors, some may be present. Please do not hesitate to contact the practitioner for clarification. 05/08/2024 Therapeutic drug monitoring (ICD-10 - Z51.81) Ketan is a 64-year-old male with a PMH of COPD, pulmonary HTN, A-fib, diastolic heart failure presents for hospital follow-up. Patient admitted for hypoxia and volume overload/decompensat ed heart failure 04/21/2024 - 04/29/2024. 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 ED workup significant for cardiomegaly, pulmonary fibrosis, and right middle lobe pneumonia on CXR. Patient was given a dose of Rocephin and azithromycin and admitted for continued management. While inpatient echocardiogram findings consistent with severe RV dilation, moderate to severe RV systolic dysfunction, and significantly elevated right-sided filling pressures consistent with volume overload. Due to hypotension metoprolol and losartan were discontinued. Patient initially sensitive to diuresis with IV Lasix. Cardiology and pulmonology were consulted at which time the patient underwent diuresis with bumetanide and spironolactone - net negative 32 L over the course of his admission. Digoxin was initiated in place of metoprolol for rate control and the patient was started on sildenafil for pulmonary HTN. #Heart failure: Patient currently taking spironolactone 25 mg twice daily, bumetanide 1 mg twice daily, and Farxiga 10mg once daily. Follows with Dr. Enriquez out of [place], seen in office yesterday. #COPD/pulmonary HTN: Patient currently on 4-6 L supplemental O2 at baseline. Was discharged with script for sildenafil 20 mg 3 times daily, has not yet been approved by his insurance company. Continue Anoro Ellipta inhaler once daily. Patient encouraged to contact pulmonology today for continued care. #A-fib: Metoprolol discontinued due to soft BPs while inpatient. Currently taking Eliquis 5 mg twice daily, also started on digoxin 125 mcg once daily for rate control in place of metoprolol. Saw cardiology yesterday with [facility] - no labs were ordered. Serum digoxin level ordered for continued evaluation. #HLD: Continue rosuvastatin 20 mg once daily and omega-3/fatty acids 360-1200 mg capsule once daily. All questions answered to the patient's satisfaction. Patient demonstrates understanding of diagnosis and treatments discussed. Follow-up at next scheduled appointment, sooner should any questions/concerns arise. Case discussed with collaborating physician Monica Stanley who has reviewed the assessment/plan. Chart, medications, labs, and vital signs reviewed. Dictation completed with the use of [employer] voice recognition software, prone to medical misidentifications and grammatical errors. All errors are unintentional. Although the practitioner does try to identify and correct errors, some may be present. Please do not hesitate to contact the practitioner for clarification. PLAN OF TREATMENT Pending Test Test Name Order Date CBC With Differential/Platelet EKG 10/02/2023 CBC (COMPLETE BLOOD COUNT) WITH DIFF COMPREHENSIVE METABOLIC PANEL 10/02/2023 COMPREHENSIVE METABOLIC PANEL 05/08/2024 HEMOGLOBIN A1C 10/02/2023 LIPID PANEL 10/02/2023 TSH 10/02/2023 BNP (B -Type Natriuretic Peptide) 2023 PT/INR 10/02/2023 DIGOXIN 05/08/2024 Next Appt Details Provider Name:ALEX Arango, 07/07/2024 10:00:00 AM, [address], [place], [address], Insurance Providers Payer Name Payer Address Payer Phone Subscriber Number Group Number Insured Name Patient Relationship to Insured Coverage Start Date Coverage End Date [employer]vantage [address] [place] [address] [phone] [id number] Ketan Cho Self - patient is the insured MEDICAL (GENERAL) HISTORY Medical History History ICD Code COPD without exacerbation J44.9 Arthritis M19.90 Chronic diastolic (congestive) heart blanca lure I50.32 Pulmonary hypertension I27.20 Paroxysmal atrial fibrillation I48.0 Surgical History Surgery Date(Month/Year) mitral valve repair 2010 umbilical hernia repair 2013 L cornea transplant Hospitalization History Reason Date(Month/Year) Hypoxia/decompensated HF 04/2024 RSV/CAP 03/2023 pericardial effusion
--- OUTSIDE RECORDS SUMMARY | 2024-06-09 13:59 | XMS_ITS | Clinical Summary ---
Author Organization [facility] Address [address] [place] [address] Phone Care Team Providers Care Furnace Reliner Name Role Phone Trent Stanley MD Primary Care Provider [phone] Allergies Active Allergy Reactions Criticality Noted Date [...] stage 2 (mild) Hypertensive chronic kidney disease Family History Medical History Relation Comments Diabetes [...] Due Date Last Done Comments Pneumococcal Vaccine: 50+ Ye ars (1 of 2 - PCV) 1980 Colorectal Cancer Screening: Annual FOBT 2010 Colorectal Cancer Screening: Colonoscopy 2010 Colorectal Cancer Screening: Sigmoidoscopy 2010 Influenza Vaccine (Season Ended) 2024 Hepatitis B Vaccine Aged Out No longe r eligible based on patient's age to complete this topic Insurance [facility] Care Teams Furnace Reliner Relationship Specialty Start Date End Date Trent Stanley MD [address] [place] [address] PCP - General Internal Medicine 11/15/23
--- OUTSIDE RECORDS SUMMARY | 2024-06-09 13:59 | XMS_ITS ---
Author Organization [facility] Address [address] [place] [address] Care Team Providers Care Cream Hauler Name Role Phone ALEX RAJAN Unavailable [phone] ALLERGIES Allergen (clinical drug ingredient) Drug/Non Drug Allergy documented on EMR Reaction Allergy Type Onset Date Status ciprofloxacin Cipro shortness of breath Drug Allergy Active vancomycin Vancocin rash Drug Allergy Active REASON FOR VISIT Pt here for Hospital follow up- [facility] MEDICATIONS Medication SIG (Take, Route, Frequency, Duration) Notes Start Date End Date Status Fish Oil Active B Complex Active Calcium Carbonate 1250 (500 Ca) MG 1 tablet with food Orally once daily Active Digoxin 125 MCG Oral for 30 Days Active Eliquis 5 MG Oral for 30 Days Active Farxiga 10 MG Oral for 90 Days Active Rosuvastatin Calcium 20 MG 1 tablet Oral ly Once a day for 90 days 10/30/2023 Active Spironolactone 25 MG Oral for 30 Days Active Aspirin 81 Active Albuterol Active Anoro Ellipta 62.5-25 MCG/ACT Inhalation for 90 Days Activ e Bumetanide 1 MG TAKE 1 TAB ORALLY 2 TIMES A DAY AT 800 AND 1700 Oral for 30 Days Active PROBLEMS Problem Type ICD Code Onset Dates Problem Status W/U Status Risk SNOMED Code Notes Problem Persistent atrial fibrillation (I48.19) Active confirmed 967981544 Problem Acute on chronic diastolic congestive heart failure (I50.33) Active confirmed 718670572 Problem Other hyperlipidemia (E78.49) Active confirmed 44563638 VITAL SIGNS Blood pressure systolic 134 mm Hg 05/09/19 25 Blood pressure diastolic 82 mm Hg 025 Heart Rate 85 /min 05/08/2024 Height 71 in 05/08/2024 Weight 264 lbs 05/08/2024 BMI 36.82 kg/m2 05/08/2024 Oximetry 95 % 05/08/2024 Encounters Encounter Location Date Provider Diagnosis [address] [facility] [address] [place] [address] 05/08/2024 ALEX RAJAN Chronic obstructive pulmonary disease, unspecified COPD type J44.9 ; Hypoxia R09.02 ; Pulmonary hypertension I27.20 ; Persistent atrial fibrillation I48.19 ; Acute on chronic diastolic congestive heart failure I50.33 ; Other hyperlipidemia E78.49 and Therapeutic drug monitoring Z51.81 ASSESSMENTS Encounter Date Diagnosis Assessment Notes Treatment Notes Treatment Clinical Notes Section Notes 05/08/2024 Chronic obstructive pulmonary disease, unspecified COPD type (ICD-10 - J44.9) Ketan is a 64-year-old male with a PMH of COPD, pulmonary HTN, A-fib, diastolic heart failure presents for hospital follow-up. Patient admitted for hypoxia and volume overload/decompensat ed heart failure 04/21/2024 - 04/29/2024. 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 Follows with Dr. Enriquez out of [place], seen in office yesterday. #COPD/pulmonary HTN: Patient [...] place of metoprolol. Saw cardiology yesterday with [facility] - no labs were ordered. Serum [...] reviewed. Dictation completed with the use of [employer] voice recognition software, prone to medical misidentifications [...] 04/21/2024 - 04/29/2024. 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 Follows with Dr. Enriquez out of [place], seen in office yesterday. #COPD/pulmonary HTN: Patient [...] place of metoprolol. Saw cardiology yesterday with [facility] - no labs were ordered. Serum [...] reviewed. Dictation completed with the use of [employer] voice recognition software, prone to medical misidentifications [...] 04/21/2024 - 04/29/2024. 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 Follows with Dr. Enriquez out of [place], seen in office yesterday. #COPD/pulmonary HTN: Patient [...] place of metoprolol. Saw cardiology yesterday with [facility] - no labs were ordered. Serum [...] reviewed. Dictation completed with the use of [employer] voice recognition software, prone to medical misidentifications [...] 04/21/2024 - 04/29/2024. 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 Follows with Dr. Enriquez out of [place], seen in office yesterday. #COPD/pulmonary HTN: Patient [...] place of metoprolol. Saw cardiology yesterday with [facility] - no labs were ordered. Serum [...] reviewed. Dictation completed with the use of [employer] voice recognition software, prone to medical misidentifications [...] 04/21/2024 - 04/29/2024. 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 Follows with Dr. Enriquez out of [place], seen in office yesterday. #COPD/pulmonary HTN: Patient [...] place of metoprolol. Saw cardiology yesterday with [facility] - no labs were ordered. Serum [...] reviewed. Dictation completed with the use of [employer] voice recognition software, prone to medical misidentifications [...] 04/21/2024 - 04/29/2024. 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 Follows with Dr. Enriquez out of [place], seen in office yesterday. #COPD/pulmonary HTN: Patient [...] place of metoprolol. Saw cardiology yesterday with [facility] - no labs were ordered. Serum [...] reviewed. Dictation completed with the use of [employer] voice recognition software, prone to medical misidentifications [...] 04/21/2024 - 04/29/2024. 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 Follows with Dr. Enriquez out of [place], seen in office yesterday. #COPD/pulmonary HTN: Patient [...] place of metoprolol. Saw cardiology yesterday with [facility] - no labs were ordered. Serum [...] reviewed. Dictation completed with the use of [employer] voice recognition software, prone to medical misidentifications and grammatical errors. All errors are unintentional. Although the practitioner does try to identify and correct errors, some may be present. Please do not hesitate to contact the practitioner for clarification. PLAN OF TREATMENT Pending Test Test Name Order Date CBC With Differential/Platelet COMPREHENSIVE METABOLIC PANEL 05/08/2024 DIGOXIN 05/08/2024 Next Appt Details Provider Name:ALEX Arango, 07/07/2024 10:00:00 AM, [address] [facility] [address], [place], [address], Progress Notes * Ketan RICHARDDOB:1960 ( 64 yo M)Acc No.[id number]:05/08/2024 Patient:??Ketan RICHARD Account Number: Provider:??ALEX RAJAN PA-C :1960?Age:64 Y?Sex:Jerson blake Date:05/08/2024 Address:[address], [id number] Subjective: * Chief Complaints: * ?1. [facility]- [facility]. * HPI: ?Constitutional:? Ketan is a 64-year-old male with a PMH of COPD, pulmonary HTN, A- fib, diastolic heart failure presents for hospital follow-up. Patient presented to [facility] emergency department 04/21/2024 at the recommendation of his short haul driver for evaluation of increasing shortness of breath. Patient admitted for hypoxia and volume overload/decompensated heart failure 04/21/24 - 04/29/24. ?Since time of discharge patient reports he has been feeling better. Continues to experience shortness of breath, although feels it has improved since time of discharge. Reports mild productive cough. Denies coughing up blood. Reports difficulty breathing while lying down improved with use of BiPAP. Denies chest pain, heart palpitations, swelling in his legs. Denies fever, chills, nausea, vomiting, diarrhea. ?Monitoring O2 saturation at home - typically 95% after a couple of minutes of wearing pulse ox. Has not yet followed up with pulmonology. ?Monitoring home BP - reports readings are generally 120-130s/80s. Saw [employer]RECTIONS OFFICER at Cardiology office yesterday, per patient no labs were ordered. Taking Spironolactone 25mg and bumetanide 1mg twice daily for diuresis. Home weight 258lbs as of this morning, was instructed to call cardiology with any weight gain of 3lbs of more. ?Since time of discharge has a visiting nurse that comes once/week. Also establishing with in home PT. Looking to reestablish with home [employer] SUPER[employer]OR who helped with things like laundry/cooking. * ROS:?All Other Systems:?Review of Systems (ROS)??All others negative except those mentioned in HPI.? * Medical History:??COPD witho ut exacerbation, Arthritis, Chronic diastolic (congestive) heart failure, Pulmonary hypertension, Paroxysmal atrial fibrillation. * Surgical History:??mitral va lve repair 2010, umbilical hernia repair 2013, L cornea transplant . * Hospitalization/Major Diagno stic Procedure:??pericardial effusion , RSV/CAP 03/2023, Hypoxia/decompensated HF 04/2024. * Family History:??Father: dec eased, hx of mechanical valves, breathing issues.??Mother: , passed from brain tumor.??Siblings: Bone cancer.??1 brother(s) , 4 sister(s) . 1 son(s) , 1 daughter(s) - healthy. .?? * Social History:?Quit smoking 2003 ???Drinks 1 to 3 times a week. * Medications:??Taking Aspirin 81 , Taking Albuterol , Taking Anoro Ellipta 62.5- 25 MCG/ACT Aerosol Powder Breath Activated Inhalation , Taking Bumetanide 1 MG Tablet TAKE 1 TAB ORALLY 2 TIMES A DAY AT 800 AND 1700 Oral , Taking Digoxin 125 MCG Tablet Oral , Taking Eliquis 5 MG Tablet Oral , Taking Farxiga 10 MG Tablet Oral , Taking Rosuvastatin Calcium 20 MG Tablet 1 tablet Orally Once a day , Taking Spironolactone 25 MG Tablet Oral , Taking Calcium Carbonate 1250 (500 Ca) MG Tablet 1 tablet with food Orally once daily , Taking Fish Oil , Taking B Complex , Discontinued Losartan Potassium 50 MG Tablet 1 tablet Orally Once a day , Discontinued Metoprolol Succinate 100 MG Capsule ER 24 Hour Sprinkle 1 capsule Orally Twice a day , Medication List reviewed and reconciled with the patient * Allergies:??Cipro: shortness of breath, Vancocin: rash. Objective: * Vitals:??HR:85/min, BP:134/8 2mm Hg, Wt:264lbs, BMI:36.82Index, Ht: 71 in, Oxygen sat %:95%. * Physical Examination:?General: 64-year-old male in no acute distress, speaking in full sentences without visible respiratory distress. Well groomed, well-developed. Alert, interactive. ?Skin: +brown/red discoloration of bilateral lower extremities. No visible lesions/wounds. Skin otherwise warm, dry and intact. No lesions/rashes/erythema. ?HEENT: Normocephalic/atraumatic. EOMI/vision intact. ?Neck/Thyroid: Supple, no lymphadenopathy. Full ROM. ?CV: RRR, no murmurs/rubs or gallops on auscultation. . ?Lungs: Clear to auscultation bilaterally, no wheezes, rales or rhonchi. Equal chest rise and fall bilaterally. No perioral cyanosis. No visible accessory muscle use. ?Lower Extremities: Bilateral lower extremities without edema. Equal tone bilaterally. ?Neuro: CN II-XII grossly intact. Steady gait and ambulation assisted with cane observed. ?Psych: Stable mood and affect. Assessment: * Assessment: 1.??Chronic obstructive pulm onary disease, unspecified COPD type - J44.9 (Primary)??2.??Hypoxia - R09.02??3.??Pulmonary hypertension - I27.20??4.??Persistent atrial fibrillation - I48.19??5.??Acute on chronic diastolic congestive heart failure - I50.33??6.??Other hyperlipidemia - E78.49??7.??Therapeutic drug monitoring - Z51.81?? Ketan is a 64-year-old mal e with a PMH of COPD, pulmonary HTN, A-fib, diastolic heart failure presents for hospital follow-up. Patient admitted for hypoxia and volume overload/decompensated heart failure 04/21/2024 - 04/29/2024. 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 Follows with Dr. Enriquez out of [place], seen in office yesterday. #COPD/pulmonary HTN: Patient [...] place of metoprolol. Saw cardiology yesterday with [facility] - no labs were ordered. Serum [...] reviewed. Dictation completed with the use of [employer] voice recognition software, prone to medical misidentifications and grammatical errors. All errors are unintentional. Although the practitioner does try to identify and correct errors, some may be present. Please do not hesitate to contact the practitioner for clarification. Plan: * Treatment: 2.??Hypoxia?LAB: COMPREHENSIVE METABOLIC PANEL 3.??Therapeutic drug monitor ing?LAB: DIGOXIN * Procedure Codes:??03168 [facility] MGMT 14 DAY DISCH * Images: Billing Information: * Visit Code:?? 31388 Office Visit, Est Pt., Level 5. Modifiers: SA * Procedure Codes:?? 17388 TRANS CARE MGMT 14 DAY DISCH. Care Plan Details* * Sign off status: Completed true * Provider:??ALEX RAJAN PA-C Date:?? 05/08/2024 History and Physical Notes * HPI (History of Present Illness) Category Sub-Category Detail Notes Category Not es Constitutional Ketan is a 64-year-old male with a PMH of COPD, pulmonary HTN, A-fib, diastolic heart failure presents for hospital follow-up. Patient presented to [facility] emergency department 04/21/2024 at the recommendation of his short haul driver for evaluation of increasing shortness of breath. Patient admitted for hypoxia and volume overload/decompensated heart failure 04/21/24 - 04/29/24. Since time of discharge patient reports he has been feeling better. Continues to experience shortness of breath, although feels it has improved since time of discharge. Reports mild productive cough. Denies coughing up blood. Reports difficulty breathing while lying down improved with use of BiPAP. Denies chest pain, heart palpitations, swelling in his legs. Denies fever, chills, nausea, vomiting, diarrhea. Monitoring O2 saturation at home - typically 95% after a couple of minutes of wearing pulse ox. Has not yet followed up with pulmonology. Monitoring home BP - reports readings are generally 120-130s/80s. Saw [employer]RECTIONS OFFICER at Cardiology office yesterday, per patient no labs were ordered. Taking Spironolactone 25mg and bumetanide 1mg twice daily for diuresis. Home weight 258lbs as of this morning, was instructed to call cardiology with any weight gain of 3lbs of more. Since time of discharge has a visiting nurse that comes once/week. Also establishing with in home PT. Looking to reestablish with home [employer] who helped with things like laundry/cooking. Physical Examination Category Sub-Category Detail Notes Section Note s General: 64-year-old male in no acute distress, speaking in full sentences without visible respiratory distress. Well groomed, well-developed. Alert, interactive. Skin: +brown/red discoloration of bilateral lower extremities. No visible lesions/wounds. Skin otherwise warm, dry and intact. No lesions/rashes/erythema. HEENT: Normocephalic/atraumatic. EOMI/vision intact. Neck/Thyroid: Supple, no lymphadenopathy. Full ROM. CV: RRR, no murmurs/rubs or gallops on auscultation. . Lungs: Clear to auscultation bilaterally, no wheezes, rales or rhonchi. Equal chest rise and fall bilaterally. No perioral cyanosis. No visible accessory muscle use. Lower Extremities: Bilateral lower extremities without edema. Equal tone bilaterally. Neuro: CN II-XII grossly intact. Steady gait and ambulation assisted with cane observed. Psych: Stable mood and affect.
--- OUTSIDE RECORDS SUMMARY | 2024-06-09 14:00 | XMS_ITS ---
Author Organization [facility] Address [address] [place] [address] Care Team Providers Care Rejogger Name Role Phone MOHINI ALEX Hodge [phone] REASON FOR VISIT REFILL MEDICATIONS Medication SIG (Take, Route, Frequency, Duration) Notes Start Date End Date Status Rosuvastatin Calcium 20 MG 1 tablet Oral ly Once a day for 90 days 10/30/2023 Active Encounters Encounter Location Date Provider Diagnosis [facility] [address] [facility] [address] [place] [address] 05/12/2024 ALEX RAJAN PLAN OF TREATMENT Medication Medication Name Sig Start Date Stop Date Notes Rosuvastatin Calcium 20 MG 1 tablet Oral ly Once a day for 90 days 10/30/2023 Next Appt Details Provider Name:ALEX Arango, 07/07/2024 10:00:00 AM, [address] [facility], [place], [address], Progress Notes * Ketan RICHARDDOB:1960 ( 64 yo M)Acc No.[id number]:05/12/2024 Patient:??Ketan RICHARD :1960?Age:64 Y?Sex:Jerson blake Address:[address] [place] [address] * Refills?? Refill Rosuvastatin Calcium Tablet, 20 MG, Orally, 90 Tablet, 1 tablet, Once a day, 90 days, Refills=1 * true * Date:??
[2024-06-09 16:13] LABS: MANUAL DIFF FLAG NO
[2024-06-09 16:23] LABS: Basophils Percent Auto 0.4 % (0-2); Eosinophils Absolute Auto 0.1 X10*3/uL (0.0-0.4); Eosinophils Percent Auto 0.7 % (0-4); Hematocrit 53.1 % (42.0-52.0); Hemoglobin 18.1 g/dl (14.0-18.0); Imm Gran Abs Auto 0.05 X10*3/uL (0.00-0.03); Imm Gran Pct Auto 0.7 % (0.0-0.4); Lymphocytes Absolute Auto 1.7 X10*3/uL (1.2-4.9); Mean Corpuscular HGB Conc 34.1 g/dl (31.0-36.0); Mean Corpuscular Hemoglobin 30.9 pg (27.0-33.0); Mean Corpuscular Volume 90.6 fL (80.0-98.0); Mean Platelet Volume 10.8 fL (9.4-12.4); Monocytes Absolute Auto 0.9 X10*3/uL (0.1-1.2); Monocytes Percent Auto 12.5 % (2-11); Neutrophils Absolute Auto 4.4 x10*3/uL (2.0-8.3); Neutrophils Percent Auto 61.7 % (45-73); Red Blood Count 5.86 X10*6/uL (4.60-5.80); Red Cell Distribution Width 17.5 % (11.0-16.0); White Blood Count 7.1 X10*3/uL (4.8-10.8)
[2024-06-09 16:24] LABS: Platelet Count 86 X10*3/uL (160-400)
[2024-06-09 16:40] LABS: Anion Gap 12 (12-20); Blood Urea Nitrogen 16 mg/dL (9-16); Calcium 9.5 mg/dL (8.4-10.2); Carbon Dioxide 29 mmol/L (22-29); Chloride 102 mmol/L (96-108); Estimated Glomerular Filt Rate > 60; Glucose Random 87 mg/dL (60-115); Potassium 3.6 mmol/L (3.3-5.1); Sodium 139 mmol/L (135-145)
[2024-06-09 16:48] LABS: Digoxin < 0.2 ng/mL (0.8-2.0)
== END 2024-06-09 12:29 | disposition home or self-care (01) ==
LOC: HO.HMGCLDS 12:28
PROVIDERS: Visit Provider Family Medicine
DX: I48.19 Other persistent atrial fibrillation (principal); D69.6 Thrombocytopenia, unspecified
CPT/HCPCS: 36415; 80048; 80162; 85025

== ENCOUNTER 2024-07-18 10:59 | Outpatient (AMB) | payer MEDICARE, SELFPAY ==
[2024-04-30 10:32] VITALS: BMI 42.4
--- NOTE | 2024-07-18 11:04 | A.OFFVIS_ITS ---
Vital Signs 07/18/24 11:05 Height 6 ft 2 in Weight 255 lb BMI 32.7 BP 140/84 H Blood Pressure Location Lt brachial Position Sitting Pulse 55 Pulse Source Pulse Oximeter Pulse Oximetry (%) 93 Oxygen Delivery Method Nasal Cannula Oxygen Flow Rate 2 Intake Visit Reasons: COPD Reagent Tender Helper Required: No Allergies ciprofloxacin [From CIPRO] Allergy (Intermediate, Verified 07/18/24 11:08) DIFFICULTY BREATHING vancomycin [VANCOMYCIN] Allergy (Intermediate, Verified 07/18/24 11:08) RASH, rash over whole body HPI Comments Details: The patient is a 64-year-old woman known history of lymphoma in addition to interstitial lung disease. She has had significant shortness of breath and cough. More recently her IgG levels were checked and found to be in the 400s. The patient has had recurrent lower respiratory infections. She is going to be started on IgG therapy by her oncologist most likely. In the meantime we looked at her previous CT scans demonstrating areas of ground-glass opacities and interstitial lung disease. She did undergo bronchoscopy back in 2018 demonstra ting chronic inflammatory patchy interstitial infiltrates. It was also noted that she had lymphocytic inflammatory cell infiltrate. Based on the fact that she response to prednisone, evidence of ground-glass opacities on her CT scan and also based on the fact that the biopsy showed chronic inflammatory changes these findings are not consistent with idiopathic pulmonary fibrosis. 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 She does need to some degree of immuno modulation to minimize inflammation and scarring. However, we should address the immunodeficiency prior to doing so. In the meantime the patient has been complaining of worsening cough and shortness of breath. We did review her CT scan of the chest that she had recently demonstrating interval worsening of the interstitial lung disease in some areas of ground-glass opacities now in the upper lung zones which she was free of disease. The patient understands that the best way of knowing was going on will be with a lung biopsy. However, the last time she went to a surgical consultation she decided to hold off after the discussion with the surgeon. Therefore diff point will do additional laboratory data to see if we can identify the process without having her to do a biopsy. At which point the patient would benefit from a immunomodulator to try to minimize to use prednisone as she has not been able to tolerated. Patient also having significant stress because she is going through a divorce. She is drinking significant amount of beer. We talked about how this also can affect the respiratory status. 06/14/2022 the patient is here for pulmonary follow-up visit. Overall he is doing well. The patient has been using the BiPAP every night. The BiPAP th erapy has been affecting beneficial. The last download data demonstrated that his AHI was 4.5. Therefore, will go ahead increase the pressures from 18-19 cm and the expiratory pressure from 13-14 cm. He will continue using 3 L at nighttime. He needs to get supplies from his [employer] will submit a script for that. In addition to the C is using the diuretics with good effect. He continues use the respiratory medications. Unfortunately the Anoro was too expensive. I did print out a medication assistance for from the pharmaceutical company and will resend the Anoro again to the pharmacy. 10/26/2022 the patient is here for a pulmonary follow-up visit. The patient has been feeling dizzy lately. Just not himself. Denies any vertigo. He is not sure what could be. Although he noticed that in the morning when he was checking his blood pressure the heart rate was only in the 40s. He had him areas in the 50s and 60s at times and is AFib currently rate controlled. Is wondering if the low heart rate could be resulting in the dizziness. He did have blood work yesterday. Sugars seems to be okay. His kidney function since to be okay and electrolytes as well. His Bumex was increased further we did talk about auto toxicity but at this point he denies any decreased hearing and or tinnitus. The patient has been using the oxygen at 4 L with activity with good effect. Also use using the BiPAP at nighttime. He did have a recent echocardiogram done demonstrating that his a RV function is decrease in his mitral valve appears to be stenotic about a moderate to severe based on the report. I did reach out to the Cardiology to see if he can be seen on little bit sooner otherwise patient will continue with current therapy. He is going to continue to monitor the heart rate to make sure that it has not decreased further. He has been on metoprolol for a long time. Also recently he was starting to get more short of breath. His brain nitrate peptide was elevated and his Bumex was increased. This week he does feel better from a breathing standpoint. 02/21/2023 the patient is here for a pulmonary follow-up visit. The patient is doing about the same. Still complaining of dyspnea on exertion. He did follow-up with cardiology. Echocardiogram demonstrated a moderate degree of mitral stenosis. The patient also has evidence of pulmonary hypertension. A lot likely have to do with the valvular disease although he does have some COPD as well. I do believe that treating the mitral valve will help his overall respiratory status. Although, understand that with his underlying respiratory issues it would be higher in the risk profile. 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 I do believe that intervening on the valve may be in his best interest. In the meantime he is okay to go back to pulmonary rehabilitation. He continue using the noninvasive ventilator at nighttime. He will continue using his oxygen as prescribed. 06/06/2023 the patient is here for a pulmonary follow-up visit. The patient overall has been doing well. The additional oxygen has been helpful. The patient still using the diuretic therapy. He will be following up with Cardiology soon. The patient does have some degree of pulmonary hypertension but also has mitral stenosis so therefore would be concerned about the use of vasodilators and causing worsening heart failure. He stopped going to pulmonary rehabilitation. I did encourage him to go back but he is concerned that he gets very short of breath with minimal activity. I did recommend he can look into online program such as the pulmonary while on this program online. He continues use the BiPAP. At this point will go ahead and recheck a blood gas. If his CO2 is elevated will go ahead and consider switching over to a AVAP, noninvasive ventilator. Patient will follow-up in about 4 months. His last chest x-ray was back in the fall 2022 which appeared to be without any acute disease possibly some vascular congestion. No additional imaging studies warranted right now. If he has any issues prior to that he will call for an earlier assessment. 11/13/2023 the patient is here for a pulmonary follow-up visit. Overall he is doing okay. He is working on weight loss. She already lost another 14 lb in the last few months. He has been proactive with his weight loss. He also continues to take his medications including his diuretics. He continues uses oxygen with good effect. He still requires between 4-8 L of oxygen per minute. Sometimes he gets a dry nose and sometimes epistaxis. He is going to start using the humidification and also can get some saline gel or water-based will forget for his nose to minimize irritation. In the meantime the patient needs to follow-up with cardiology. He does have what appears to be significant mitral stenosis that is likely worsening his pulmonary hypertension and is respiratory failure. He is not a surgical candidate because of his significant pulmonary disease. However, wondering if he can have a catheter based approach to help him with his significant issue. In the meantime he does use the AVAP at nighttime. The AVAP therapy has been affecting beneficial. He does use it for more than 4 hours a night. He did have a blood gas in his CO2 is reassuring. He does find the machine helpful. The patient follow-up in 6 months with us. He will see cardiology soon and hopefully they can potentially refer him to a tertiary center where he may have other potential alternative therapies for his mitral stenosis. 04/21/2024 the patient is here for a pulmonary follow-up visit. He is here with his son. Been having hard time with worsening shortness of breath. Moderate to severe. He has been having to increase his oxygen for 4-6 L to maintain a pulse ox and his breathlessness under control. He has been using his noninvasive ventilator at nighttime and also during the day as needed. He does get some relief. Unfortunately he forgot to take his Lasix for the last week because he did not have it in his pill container. Once he realized that he started taking yesterday. Was getting significant amount of fluid and edema. He has been noticing increasing dizzy spells and he has been very scared about passing out. He did have some medication changes during his as visit with his specialists. Today come in he was noted to be hypotensive with systolic in the 80s and also heart rate in the 40s. Pulse ox 80% on 4 L. the patient does not appear well does have some crackles at the bases with diminished breath sounds. Based on his hypotension and his volume overload status along with the dizzy spells will go ahead and transfer him to the ER for further care. Likely needs diuresis and hopefully by doing so improving his starting her and improving his pump function. He will need to have a repeat echo since he has not had 1 in a year and further imaging of the chest. 07/18/2024 the patient is here for pulmonary follow-up visit. He was hospitalized several months ago. Currently doing much better. Volume status is better. While in the hospital we did treat him for the pulmonary hypertension with sildenafil 10 mg t.i.d.. He did tolerate that well and were hoping for him to continue to treat the pulmonary hypertension. Although I believe that was denied. Will try to resubmitted again in order to perform a prior approval and see if we can get the medication started for the patient to minimize his right- sided heart failure. From a fluid status the patient is doing a lot better he is tolerating his diuretics well. He is also using the BiPAP at nighttime the BiPAP therapy continues to be affecting beneficial. He continues on the oxygen using between 2-4 L. Seems like his volumes status is better and therefore his gas exchange have subsequently improved as well. No changes at this time. The patient follow-up in 4-6 months. If he has any issues prior to this he will call for an earlier assessment. [facility] Medical History (Updated 05/07/24 @ 16:34 by Fabio Massey NP) Pulmonary hypertension Pneumonia Chronic diastolic (congestive) heart failure Morbid obesity due to excess calories Mitral stenosis SOB (shortness of breath) Cor pulmonale Dyspnea Oxygen dependent Chronic hypoxemic respiratory failure Sleep apnea COPD (chronic obstructive pulmonary disease) Hyperlipidemia Atrial fibrillation Hypertension, essential Current use of anticoagulant therapy Surgical History History of carpal tunnel surgery History of colonoscopy History of thumb surgery History of mitral valve repair History of umbilical hernia History of tonsillectomy History of vasectomy Family History Father No problems noted. Mother No problems noted. Brother No problems noted. Sister Mental health disorder Sister No problems noted. Sister No problems noted. Sister No problems noted. Son No problems noted. Daughter No problems noted. Social History Household Members: None Housing: Apartment Do you presently have visiting nurse or other home services: Yes (home care twice a week) Alcohol intake: former Patient Tobacco Use Status: Former Tobacco user Tobacco use type: Cigarette Years Smoked: 25 e-Cigarette/Vaping Use: Never Used Second Hand Smoke Exposure: Yes (cigar smoke) Substance Use Type: Marijuana Advance Directives Date on File: 07/12/20 service: No Current occupational status: disabled Cognitive needs: No Hearing needs: No Vision needs: Yes Review of Systems Const Denies chills, Reports fatigue, Denies fever(s), Reports weight gain and Reports weight loss ENT Reports dizziness, Denies epistaxis and Denies nasal discharge Card Denies chest pain, Reports leg edema, Reports dyspnea and Reports dyspnea on exertion Resp Denies chest congestion, Denies cough, Denies hemoptysis, Reports dyspnea and Reports dyspnea on exertion GI Denies diarrhea and Denies nausea Musc Reports myalgias Skin/Breast Denies rash Neuro Reports no additional complaints and Reports dizziness Psych Reports no additional complaints Endo Reports no additional complaints and Reports fatigue Physical Exam Vital Signs: Last Vital Signs Pulse 55 07/18/24 11:05 BP 140/84 H 07/18/24 11:05 Pulse Ox 93 07/18/24 11:05 Oxygen Delivery Method Nasal Cannula 07/18/24 11:05 Oxygen Flow Rate 2 07/18/24 11:05 BMI result Body Mass Index 32.7 Const General: alert HEENT General nose exam: Abnormal external nose present and Nasal discharge present Neck Neck: Yes normal visual inspection, Yes full ROM and Yes no lymphadenopathy Chest Chest palpation & inspection: normal inspection of the chest Resp Effort & Inspection: normal respiratory effort Auscultation: crackles and diminished lung sounds Cardio Rate: regular rate Rhythm: abnormal rhythm Heart sounds: S1 normal heart sound present, S2 normal heart sound present and Murmur heart sound present GI Palpation (GI): Soft to palpation and nontender Auscultation: normal bowel sounds Skin General skin exam: rashes and/or lesions noted Extrem General: Yes clubbing and Yes edema Assessment & Plan Assessment & Plan (1) Pulmonary hypertension: Code(s): I27.20 - Pulmonary hypertension, unspecified Category: Medical (2) Dyspnea: Code(s): R06.00 - Dyspnea, unspecified Category: Medical Qualifiers: Dyspnea type: dyspnea on exertion Qualified Code(s): R06.00 - Dyspnea, unspecified (3) COPD (chronic obstructive pulmonary disease): Code(s): J44.9 - Chronic obstructive pulmonary disease, unspecified Category: Medical Qualifiers: COPD type: emphysema Emphysema type: panlobular Qualified Code(s): J43.1 - Panlobular emphysema (4) Mitral stenosis: Code(s): I05.0 - Rheumatic mitral stenosis Category: Medical Qualifiers: Cardiac valve disease etiology: etiology unspecified Qualified Code(s): I05.0 - Rheumatic mitral stenosis (5) SOB (shortness of breath): Code(s): R06.02 - Shortness of breath Category: Medical Plan Continue NIV therapy, JL AHI, oxygen 4L Continue oxygen therapy 4 L at rest, 6-8 L with activity diuresis with BUmex will f/u with cardiology continue Anoro daily consider sildenafil, but requires [facility] F/U 4-6 months Medications: Refilled sildenafil (pulm.hypertension) 10 mg (1/2 x 20 mg) PO TID 45 tabs 11RF 30 days Coding Level of Care Code Est Pt Level 4 (37165) Complex EM visit Add On G2211 Diagnoses Pulmonary hypertension I27.20 Dyspnea on exertion R06.00 Dyspnea type: dyspnea on exertion Panlobular emphysema J43.1 COPD type: emphysema Emphysema type: panlobular Mitral valve stenosis, unspecified etiology I05.0 Cardiac valve disease etiology: etiology unspecified SOB (shortness of breath) R06.02 Time Spent (min) 18
[2024-07-18 11:05] VITALS: BP 140/84; PULSE 55; O2SAT 93; BMI 32.7
--- OUTSIDE RECORDS SUMMARY | 2024-07-18 12:05 | XMS_ITS | Clinical Summary ---
Author Organization [facility] Address [address] [place] [address] Care Team Providers Care Recording Studio Setup Worker Name Role Phone Unavailable Primary Care Provider Unavailabl e Social History Tobacco Use Types Packs/Day Years Used Date Smoking Tobacco: Never Assessed Sex and Gender Information Value Date Recorded Sex Assigned at Not on file Gender Identity Not on file Sexual Orientation Not on file Plan of Treatment Not on file
== END 2024-07-18 11:22 | disposition home or self-care (01) ==
LOC: HO.HPS 10:59
PROVIDERS: Visit Provider Hospitalist
DX: I27.20 Pulmonary hypertension, unspecified (principal); R06.00 Dyspnea, unspecified; J43.1 Panlobular emphysema; I05.0 Rheumatic mitral stenosis; R06.02 Shortness of breath
CPT/HCPCS: 99214; G2211

== ENCOUNTER → 2024-07-18 10:59 | Outpatient (BNVA) | payer MEDICARE, SELFPAY ==
[2024-04-30 10:32] VITALS: BMI 42.4
== END ==
PROVIDERS: Visit Provider Hospitalist
DX: R06.02 Shortness of breath (principal); I27.20 Pulmonary hypertension, unspecified; R06.00 Dyspnea, unspecified; J44.9 Chronic obstructive pulmonary disease, unspecified; I05.0 Rheumatic mitral stenosis
CPT/HCPCS: 99212

== ENCOUNTER → 2024-08-06 10:57 | Outpatient (REF) | payer MEDICARE, SELFPAY ==
--- OUTSIDE RECORDS SUMMARY | 2024-04-30 06:00 | XMS_ITS ---
Author Organization [facility] [address] Address [address] [place] [address] Care Team Providers Care Local Operator Name Role Phone ALEX RAJAN Unavailable [phone] Encounters Encounter Location Date Provider Diagnosis [facility] [address] [place] [address] 04/30/2024 ALEX RAJAN Plan Of Treatment Next Appt Details Provider Name:ALEX Arango, 10/13/2024 01:00:00 PM, [address] , [facility] [address], [place], [address], Progress Notes * Ketan RICHARDDOB:1960 ( 64 yo M)Acc No.[id number]:04/30/2024 Progress Notes Patient: Ketan NAVARRO Provider: Rosaura RAJAN PA-C :1960 A ge:64 Y S ex:Male Date:04/30/2024 Address:[address] [place] [id number] Subjective: * Chief Complaints: * * Medical History: Objective: * Vitals: Assessment: Plan: * Treatment: * Images: Billing Information: * Visit Code: * Procedure Codes: Care Plan Details* * Electronic signature of BRENDA RAJAN PA-C on 08/06/2024 at 11:40 AM EDT Sign off status: Pending * Provider: Rosaura RAJAN PA-C Date: 0 04/30/2024 Generated for Printi ng/Faxing/eTransmitting on: 0 08/06/2024 11:40 AM EDT
[2024-04-30 10:32] VITALS: BMI 42.4
--- NOTE | 2024-08-06 10:59 | CA_ITS ---
Transthoracic Echocardiogram Patient (Last, First, Middle): Ketan Cho R Gender: Male Date of : 1960 Age: 64 Procedure Date: 08/06/2024 Procedure Type: Transthoracic Echocardiogram Location: OP Height: 187.96 cm Weight: 112.04 kg BSA: 2.38 m2 Heart Rate: bpm BP: 140 / 80 mmHg Digital Media Buyer: CURLY Referring MD: Faboi Massey [employer] Clinical Documentation Improvement Specialist: Osbaldo Chapman MD Symptoms: I50.32 - Chronic diastolic (congestive) heart failure Study Quality: Adequate ECG Rhythm: Atrial flutter/fib Conclusions: - 1. Normal LV ejection fraction of 60 65% 2. Moderately dilated left atrium 3. Severely dilated right-sided chambers 4. Prior reported mitral valve repair with thickened posterior mitral leaflet, stenosis is not evaluated on this study 5. Flail tricuspid leaflet with severe -torrential tricuspid regurgitation 6. Mildly elevated right ventricular systolic pressure 7. No gross pericardial effusion Findings Left Ventricle Normal left ventricular size, thickness, and systolic function. The visually estimated ejection fraction is between 65-70%. There is a flattened septum in diastole ( D shaped left ventricle) consistent with right ventricular volume overload. Diastolic function is indeterminate on the basis of available data. Right Ventricle Severely increased right ventricular cavity size. Atria The left atrium is moderately dilated. There is no evidence of interatrial shunt. The right atrium is severely dilated. Aortic Valve There is mild thickening of the aortic valve. There is no aortic valve stenosis. There is no aortic valve regurgitation. Mitral Valve There is mild anterior and severe posterior mitral leaflet thickening. The posterior mitral leaflet is immobile. There is trace mitral valve regurgitation. There is no mitral valve stenosis. reported prior mitral valve repair Pulmonic Valve The pulmonic valve was not well visualized. Tricuspid Valve There is mild septal tricuspid leaflet thickening. There is a flail septal mitral leaflet. There is severe tricuspid valve regurgitation. Indeterminate right atrial pressure. Mild pulmonary hypertension is present. Great Vessels The pulmonary artery was not well visualized. There is mild dilatation of the ascending aorta measuring 3.80 cm. Venous The inferior vena cava is severely dilated and collapses less than 50% with inspiration. Pericardium/Pleural There is no evidence of pericardial effusion. Prior Study Comparison Changes noted compared to prior study dated: 04/25/2024. tricuspid regurgitation appears to be severe to torrential with possible flail leaflet. Consider MAGED if clinically indicated Recommendations, Care & Conclusions Consider a MAGED if clinically appropriate. Measurements 2D Linear Measurements IVSd: 1.18 0.6-0.9/0.6-1.0 cm LVIDd: 4.99 3.9-5.3/4.2-5.9 cm LVIDd Index: 2.10 2.4-3.2/2.2-3.1 cm/m2 LVIDs: 3.56 2.0-3.6 cm LVPWd: 1.23 0.7-1.1 cm LA Diam: 7.00 2.7-3.8/3.0-4.0 cm LAIDs Index: 2.94 1.5-2.3 cm/m2 LV Mass: 459.01 67-162/88-224 g LV Mass Index: 192.86 43-95/49-115 g/m2 LVOT Diam: 2.50 3.0+(-)1.3 cm 2D Systolic Function EF 4C: 64.30 >55% EF 2C: 67.10 >55% EF BiP: 66.10 >55% Mitral Valve MV VTI: 0.40 MV Pk Terry: 1.20 MV Mn Terry: 0.75 MV Pk Grad: 6.00 MV Mn Grad: 3.00 MVA Continuity: 1.64 Aortic Valve AoV Pk Terry: 1.42 AoV Mn Terry: 0.93 AoV VTI: 0.24 AoV Pk Grad: 8.00 Aov Mn Grad: 4.00 DIPIKA Cont.VTI: 2.79 LVOT LVOT Pk Terry: 0.77 LVOT Mn Terry: 0.53 LVOT VTI: 0.13 LVOT Pk Grad: 2.00 LVOT Mn Grad: 1.00 LVOT Diam: 2.50 LVOT Area: 4.91 Right Ventricle TVS' Terry: 8.16 Tricuspid Valve TR Pk Terry: 2.80 TR Pk Grad: 31.00 RA Press: 15.00 RVSP: 46.00 Great Vessels Aorta Sinus of Valsalva: 3.90 2.0-3.5 cm Ao Asc: 3.80 2.1-3.4 cm Pulmonary Valve PV Pk Terry: 0.67 Peak PV Grad: 2.00 Updated in Other Vendor System with Status of Final Osbaldo Chapman MD electronically signed on 08/07/2024 10:17:32 AM with status of Final
--- OUTSIDE RECORDS SUMMARY | 2024-08-06 11:40 | XMS_ITS | Clinical Summary ---
Author Organization [facility] Address [address] [place] [address] Care Team Providers Care Elevator Supervisor Name Role Phone Unavailable Primary Care Provider Unavailabl e Social History Tobacco Use Types Packs/Day Years Used Date Smoking Tobacco: Never Assessed Sex and Gender Information Value Date Recorded Sex Assigned at Not on file Gender Identity Not on file Sexual Orientation Not on file Plan of Treatment Not on file
--- OUTSIDE RECORDS SUMMARY | 2024-08-06 11:41 | XMS_ITS | Clinical Summary ---
Author Organization [facility] Address [address] [place] [address] Phone Care Team Providers Care Graduation Coach Name Role Phone Trent Stanley MD Primary Care Provider [phone] Allergies Active Allergy Reactions Criticality Noted Date [...] patient's age to complete this topic Insurance [facility] Care Teams Graduation Coach Relationship Specialty Start Date End Date Trent Stanley MD [address] [place] [address] PCP - General Internal Medicine 11/15/23
== END ==
LOC: HO.CARD 10:57
DX: I50.32 Chronic diastolic (congestive) heart failure (principal)
CPT/HCPCS: 93306

== ENCOUNTER → 2024-08-06 10:59 | Outpatient (BNV) | payer MEDICARE, SELFPAY ==
[2024-04-30 10:32] VITALS: BMI 42.4
== END ==
PROVIDERS: Visit Provider Internal Medicine Cardiovascular Disease
DX: I27.20 Pulmonary hypertension, unspecified (principal); I50.810 Right heart failure, unspecified; I36.1 Nonrheumatic tricuspid (valve) insufficiency; Z95.4 Presence of other heart-valve replacement; I51.7 Cardiomegaly
CPT/HCPCS: 93306

== ENCOUNTER 2024-09-30 12:40 | Outpatient (AMB) | payer MEDICARE, SELFPAY ==
--- OUTSIDE RECORDS SUMMARY | 2024-04-30 06:00 | XMS_ITS ---
Author Organization [facility] [address] Address [address] [place] [address] Care Team Providers Care Mascara Molder Name Role Phone ALEX RAJAN Unavailable [phone] Encounters Encounter Location Date Provider Diagnosis [facility] [address] [place] [address] 04/30/2024 ALEX RAJAN Plan Of Treatment Next Appt Details Provider Name:ALEX Arango, 10/13/2024 01:00:00 PM, [address], [facility] [address], [place], [address], Progress Notes * Ketan RICHARDDOB:1960 ( 64 yo M)Acc No.[id number]:04/30/2024 Progress Notes Patient: Ketan NAVARRO Provider: Rosaura RAJAN PA-C :1960 A ge:64 Y S ex:Male Date:04/30/2024 Address:[address] [place] [phone] Subjective: * Chief Complaints: * * Medical History: Objective: * Vitals: Assessment: Plan: * Treatment: * Images: Billing Information: * Visit Code: * Procedure Codes: Care Plan Details* * Electronic signature of BRENDA RAJAN PA-C on 09/30/2024 at 01:21 PM EDT Sign off status: Pending * Provider: Rosaura RAJAN PA-C Date: 0 04/30/2024 Generated for Printi ng/Faxing/eTransmitting on: 0 09/30/2024 01:21 PM EDT
[2024-04-30 10:32] VITALS: BMI 42.4
--- NOTE | 2024-09-30 12:44 | A.OFFVIS_ITS ---
Vital Signs 09/30/24 12:45 Height 6 ft 2 in Weight 242 lb BMI 31.1 BP 122/68 Blood Pressure Location Lt brachial Position Sitting Pulse 75 Pulse Source Pulse Oximeter Intake Visit Reasons: follow up after echo Allergies ciprofloxacin (From CIPRO) Allergy (Intermediate, Verified 07/18/24 11:08) DIFFICULTY BREATHING vancomycin (VANCOMYCIN) Allergy (Intermediate, Verified 07/18/24 11:08) RASH, rash over whole body Medication List - Last Reconciled 09/30/24 by Maxwell Enriquez MD apixaban 5 mg PO BID aspirin (Adult Low Dose Aspirin) 81 mg PO DAILY bumetanide 1 mg See Protocol PO BID@0800,1700 calcium carbonate 500 mg PO DAILY cholecalciferol (vitamin D3) 50 mcg PO DAILY coQ10 (ubiquinol) (Qunol Reyes CoQ10) 100 mg PO DAILY dapagliflozin propanediol (Farxiga) 10 mg PO DAILY digoxin 0.125 mg See Protocol PO DAILY multivitamin 1 tab PO DAILY omega-3 fatty acids-fish oil 360-1,200 mg (Fish Oil) 1 cap PO DAILY Oxygen Home Use As directed rosuvastatin 20 mg PO BEDTIME 90 days sildenafil (pulm.hypertension) 10 mg (1/2 x 20 mg) PO TID 30 days spironolactone 25 mg See Protocol PO BID umeclidinium-vilanterol 62.5-25 mcg/actuation (Anoro Ellipta) 1 inh inhalation DAILY 90 days vitamin B complex 1 tab PO DAILY HPI Comments Details: Ketan returns for follow-up. Previously, transferred care from [facility]. Multiple medical comorbidities including morbid obesity, chronic diastolic congestive heart failure, history of mitral valve repair more than 10 years ago, COPD, pulmonary hypertension. Per patient, during the time of mitral valve surgery did not get any coronary interventions. He remains on supplemental oxygen. Overall, shortness of breath is just about the same as before. He is also on supplemental oxygen as before. Otherwise, it seems that he has lost a substantial amount of weight over the last couple of years. [facility] Medical History (Updated 09/30/24 @ 13:18 by Maxwell Enriquez MD) Pulmonary hypertension Pneumonia Chronic diastolic (congestive) heart failure Morbid obesity due to excess calories Mitral stenosis SOB (shortness of breath) Cor pulmonale Dyspnea Oxygen dependent Chronic hypoxemic respiratory failure Sleep apnea COPD (chronic obstructive pulmonary disease) Hyperlipidemia Atrial fibrillation Hypertension, essential Current use of anticoagulant therapy Surgical History History of carpal tunnel surgery History of colonoscopy History of thumb surgery History of mitral valve repair History of umbilical hernia History of tonsillectomy History of vasectomy Family History Father No problems noted. Mother No problems noted. Brother No problems noted. Sister Mental health disorder Sister No problems noted. Sister No problems noted. Sister No problems noted. Son No problems noted. Daughter No problems noted. Social History Household Members: None Housing: Apartment Do you presently have visiting nurse or other home services: Yes (home care twice a week) Alcohol intake: former Patient Tobacco Use Status: Former Tobacco user Tobacco use type: Cigarette Years Smoked: 25 e-Cigarette/Vaping Use: Never Used Second Hand Smoke Exposure: Yes (cigar smoke) Substance Use Type: Marijuana Advance Directives Date on File: 07/12/20 service: No Current occupational status: disabled Cognitive needs: No Hearing needs: No Vision needs: Yes Review of Systems Const Denies weakness ENT Denies dizziness Card Denies chest pain, Denies chest pain with activity, Denies syncope, Denies rapid heart rate, Denies pedal edema, Denies edema, Denies leg edema, Denies lightheadedness, Denies palpitations, Denies dyspnea, Denies dyspnea on exertion and Denies orthopnea Resp Denies cough, Denies dyspnea and Denies dyspnea on exertion GI Denies hematochezia and Denies change in stool character Musc Denies abnormal gait, Denies muscle cramps, Denies muscle weakness, Denies numbness, Denies radiating pain into limb and Denies tingling Neuro Denies abnormal gait, Denies dizziness, Denies syncope, Denies numbness, Denies tingling and Denies weakness Endo Denies palpitations Physical Exam Vital Signs: Last Vital Signs Pulse 75 09/30/24 12:45 BP 122/68 09/30/24 12:45 BMI result Body Mass Index 31.1 Const General: comfortable and no acute distress Orientation/consciousness: patient oriented x3 HEENT Other: Unremarkable Head: Yes normal to inspection Neck Neck: Yes normal visual inspection Chest Chest palpation & inspection: normal inspection of the chest Resp Auscultation: clear to auscultation bilaterally Cardio Palpation: normal PMI Heart sounds: S1 normal heart sound present, S2 normal heart sound present, no gallops, Murmur heart sound present systolic III/ and no rubs GI Palpation (GI): Soft to palpation Back/Spine/Pelvis Other: unremarkable Skin General skin exam: no rashes or lesions noted Neuro General: patient oriented x3 Extrem General: Yes normal to inspection Psych Mental Status: mental status grossly normal Assessment & Plan Assessment & Plan (1) Status post mitral valve repair: Code(s): Z98.890 - Other specified postprocedural states Category: Surgical Plan: In the recent echocardiogram, mean gradient across the mitral valve is 3 mm Hg. Overall, doubt any significant valvular dysfunction. In fact endocarditis prophylaxis per protocol. (2) Chronic right heart failure: Code(s): I50.812 - Chronic right heart failure Category: Medical Plan: Seems well compensated on diuretics. (3) Nonrheumatic tricuspid valve regurgitation: Code(s): I36.1 - Nonrheumatic tricuspid (valve) insufficiency Category: Medical Plan: We discussed about this today. He does have a flail tricuspid leaflet with significant regurgitation on the last echocardiogram. We discussed about doing a MAGED to evaluate for transcatheter edge to edge repair options, but he would like to just hold off for now. He states he is stable and would like to keep things the way they are. We will schedule another echocardiogram before follow- up visit. He will contact us if any interim worsening of symptoms. (4) Persistent atrial fibrillation: Code(s): I48.19 - Other persistent atrial fibrillation Category: Medical Plan: Per patient, multiple prior cardioversions. He was on metoprolol but no longer in his list. Appears it might have been stopped because of low blood pressure issues. Only on digoxin. Continue warfarin. (5) Pulmonary hypertension: Code(s): I27.20 - Pulmonary hypertension, unspecified Category: Medical Plan: Diuretics and he is also on sildenafil. (6) Arterial hypotension: Code(s): I95.9 - Hypotension, unspecified Category: Medical Qualifiers: Hypotension type: hypotension due to drug Qualified Code(s): I95.2 - Hypotension due to drugs Plan: In the past, has been on amlodipine, losartan but not in his list anymore. As above, also not on metoprolol. Blood pressure seems stable. Plan Discussion Notes During the visit, we discussed the patient's pulmonary fibrosis and associated cardiac complications, including right-sided heart enlargement and tricuspid valve regurgitation. The patient understands that surgical intervention is not feasible due to his pulmonary condition, but non-surgical options may be considered if symptoms worsen. We agreed to continue monitoring his condition with regular echocardiograms and maintain his current medication regimen, including diuretics for fluid management. Patient was informed and verbally consented to the use of an ambient scribe for clinic note documentation during this visit. Orders: Orders CA echo transthoracic complete 3 Months I36.1 - Nonrheumatic tricuspid (valve) insufficiency Basic Metabolic Panel Today I36.1 - Nonrheumatic tricuspid (valve) insufficiency, I50.9 - Heart failure, unspecified B Type Natriuretic Peptide Today I36.1 - Nonrheumatic tricuspid (valve) insufficiency Patient Instructions: - Continue using oxygen therapy as prescribed. - Take Bumetanide and Farxiga as directed to manage fluid retention. - Monitor for any worsening symptoms and report them immediately. - Attend follow-up appointments for regular echocardiograms. Coding Level of Care Code Est Pt Level 4 (13793) Complex EM visit Add On G2211 Diagnoses Status post mitral valve repair Z98.890 Chronic right heart failure I50.812 Nonrheumatic tricuspid valve regurgitation I36.1 Persistent atrial fibrillation I48.19 Pulmonary hypertension I27.20 Hypotension due to drugs I95.2 Hypotension type: hypotension due to drug
[2024-09-30 12:45] VITALS: BP 122/68; PULSE 75; BMI 31.1
--- OUTSIDE RECORDS SUMMARY | 2024-09-30 13:22 | XMS_ITS | Clinical Summary ---
Author Organization [facility] Address [address] [place] [address] Care Team Providers Care Body Straightener Name Role Phone Unavailable Primary Care Provider Unavailabl e Social History Tobacco Use Types Packs/Day Years Used Date Smoking Tobacco: Never Assessed Sex and Gender Information Value Date Recorded Sex Assigned at Not on file Gender Identity Not on file Sexual Orientation Not on file Plan of Treatment Not on file
--- OUTSIDE RECORDS SUMMARY | 2024-09-30 13:22 | XMS_ITS | Clinical Summary ---
Author Organization [facility] Address [address] [place], [place] [id number] Phone Care Team Providers Care Automotive Parts Salesperson Name Role Phone Gregory Thompson MD Primary Care Provider [phone] Social History Tobacco Use Types Packs/Day Years Used Date Smoking Tobacco: Never Assessed Education Answer Date Recorded Are you interested in more education? Not on brigid e 06/02/2022 Are you concerned about learning? Not on file 06/02/2022 No 06/02/2022 No 06/02/2022 Digital Access Answer Date Recorded No 07/03/2022 No 07/03/2022 No 07/03/2022 Reliable internet access at home? Not on file 07/03/2022 Device with a working camera? Not on file Sex and Gender Information Value Date Recorded Sex Assigned at Not on file Legal Sex Male 9:46 PM EDT Gender Identity Not on file Sexual Orientation Not on file Plan of Treatment Not on file Medical Devices Not on file Insurance [place] BLUE [employer]AF[employer]Y NET PARTIAL Member Subscriber Plan / Payer (Ef fective 2019-Present) Name:Ketan Cho Relation to Subscriber:Self Name:Ketan Cho Payer ID:Not on file Group ID:Not on file Type:Medicaid Address: [place] [id number] [facility] MEDICARE HMO BLUE REPLACEMENT HEALTH SAFETY NET PARTIAL [facility] MEDICARE HMO BLUE REPLACEMENT HEALTH SAFETY NET PARTIAL [facility] MEDICARE HMO BLUE REPLACEMENT HEALTH SAFETY NET PARTIAL Member Subscriber Plan / Payer (Ef fective 2019-Present) Name:Ketan Cho Relation to Subscriber:Self Name:Ketan Cho Payer ID:Not on file Group ID:Not on file Type:Medicaid Address: [place] [id number] [facility] MEDICARE HMO BLUE REPLACEMENT HEALTH SAFETY NET [place]IAL [place] [address] MEDICARE HMO BLUE REPLACEMENT HEALTH SAFETY NET PARTIAL Member Subscriber Plan / Payer (Ef fective 2019-Present) Name:Ketan Cho Relation to Subscriber:Self Name:Ketan Cho Payer ID:Not on file Group ID:Not on file Type:Medicaid Address: [place] [id number] [facility] MEDICARE HMO BLUE REPLACEMENT HEALTH SAFETY NET PARTIAL MEDICARE HMO BLUE REPLACEMENT HEALTH SAFETY NET PARTIAL Member Subscriber Plan / Payer (Ef fective 2019-Present) Name:Ketan Cho Relation to Subscriber:Self Name:Ketan Cho Payer ID:Not on file Group ID:Not on file Type:Medicaid Address: [place] [id number] [place] [address] MEDICARE HMO BLUE REPLACEMENT [facility] NET PARTIAL Care Teams Automotive Parts Salesperson Relationship Specialty Start Date End Date Gregory Thompson MD [facility] [place] [address] PCP - General Internal Medicine 12/09/19 Additional Source Comments The information contained in this document represents components of the legal health record. It is not the complete legal health record.[facility]
--- OUTSIDE RECORDS SUMMARY | 2024-09-30 13:22 | XMS_ITS | Clinical Summary ---
Author Organization [facility] Address [address] [place] [address] Phone Care Team Providers Care Expressive Art Therapist Name Role Phone Trent Stanley MD Primary Care Provider [phone] Allergies Active Allergy Reactions Criticality Noted Date [...] Cancer Screening: Sigmoidoscopy 2010 Influenza Vaccine (#1) 2024 Hepatitis B Vaccine Aged Out No longe r eligible based on patient's age to complete this topic Insurance [facility] Care Teams Expressive Art Therapist Relationship Specialty Start Date End Date Trent Stanley MD [address] [place] [address] PCP - General Internal Medicine 11/15/23
--- OUTSIDE RECORDS SUMMARY | 2024-09-30 13:22 | XMS_ITS | Encounter Summary ---
Author Organization [facility] Address [address] [place] [id number] Phone Care Team Providers Care Lavender Farm Worker Name Role Phone Pcp, Unknown Primary Care Provider Gregory Parada MD Primary Care Provider [phone] Encounter Details Date Type Department Care Team (Latest Contact Info) Description 12/02/2019 Transcribe Orders Virtual Department [address] [place] [address] Lilia Wheat PA [address] [place] [id number] Dysphagia, unspecified type (Primary Dx); Gastroesophageal reflux disease with esophagitis, unspecified whether hemorrhage Social History Tobacco Use Types Packs/Day Years Used Date Smoking Tobacco: Never Assessed Sex and Gender Information Value Date Recorded Sex Assigned at Not on file Legal Sex Male 9:46 PM EDT Gender Identity Not on file Sexual Orientation Not on file documented as of this encounter Plan of Treatment Not on file documented as of this encounter Results * FL BARIUM SWALLOW ESOPHAGRAM DOUBLE CONTRAST (12/09/2019 11:34 AM EST) Anatomical Region Laterality Modality Chest Computed Radiogr aphy 12/09/2019 12:5 2 PM EST Impressions 12/09/2019 12:56 PM EST Zenker's diverticulum, likely accounting for the symptomatology. This appears of fairly small size with a fairly narrow neck. Findings discussed with the patient conclusion of procedure. FLUOROSCOPY TIME: 0 min. 50 sec; 40 IMAGES/FRAMES Narrative 12/09/2019 12:56 PM EST TECHNIQUE: BARIUM SWALLOW was performed with Sodium Carbonate and Barium. Circulating Nurse view the neck demonstrates no findings of concern. Due to the patient's body habitus, we were not able to perform semiprone or supine imaging and the patient could not fit into the antrum of the fluoroscopy unit in the lateral position. The study is supplemented by lateral views of the neck after a swallow of thin barium liquid at the end of the study. Double contrast upright esophagram was performed after initial rapid sequence fluoroscopy during swallowing of high density barium was performed followed by an upright single contrast series. There is a Zenker's diverticulum which extends just to the left of midline. Sagittal residual barium after several minutes. No esophageal masses or large hiatal hernia apparent. Evaluation of the EG junction is somewhat limited due to the patient's body habitus but no masses or distortion are seen there. 13 mm barium tablet passes without difficulty through the esophagus. Procedure Note Adria Melara MD - 12/09/2019 TECHNIQUE: BARIUM SWALLOW was performed with Sodium Carbonate and Barium. Circulating Nurse view the neck demonstrates no findings of concern. Due to the patient's body habitus, we were not able to perform semiproneor supine imaging and the patient could not fit into the antrum of thefluoroscopy unit in the lateral position. The study is supplemented bylateral views of the neck after a swallow of thin barium liquid at the endof the study. Double contrast upright esophagram was performed after initial rapidsequence fluoroscopy during swallowing of high density barium wasperformed followed by an upright single contrast series. There is a Zenker's diverticulum which extends just to the left ofmidline. Sagittal residual barium after several minutes. No esophagealmasses or large hiatal hernia apparent. Evaluation of the EG junction issomewhat limited due to the patient's body habitus but no masses ordistortion are seen there. 13 mm barium tablet passes without difficultythrough the esophagus. IMPRESSION: Zenker's diverticulum, likely accounting for the symptomatology. Thisappears of fairly small size with a fairly narrow neck. Findings discussedwith the patient conclusion of procedure. FLUOROSCOPY TIME: 0 min. 50 sec; 40 IMAGES/FRAMES Lilia PAEZ IMG FL MISC Final Resul t documented in this encounter Visit Diagnoses Diagnosis Dysphagia, unspecified type- Primary Gastroesophageal reflux disease with esophagitis, unspecified whether hemorrhage Dysphagia, unspecified type Gastroesophageal reflux disease with esophagitis, unspecified whether hemorrhage documented in this encounter Care Teams Lavender Farm Worker Relationship Specialty Start Date End Date Pcp, Unknown PCP - General 12/03/19 12/08/19 Gregory Thompson MD [facility] [place] [address] PCP - General Internal Medicine 12/09/19 documented as of this encounter Additional Source Comments The information contained in this document represents components of the legal health record. It is not the complete legal health record.[facility]
--- OUTSIDE RECORDS SUMMARY | 2024-09-30 13:22 | XMS_ITS | Patient Health Record ---
Author Organization [facility] [address] Address [address] [place] [address] Care Team Providers Care Cargo Vessel Stewardess Name Role Phone ALEX RAJAN Unavailable [phone] Allergies Allergen (clinical drug ingredient) Drug/Non Drug Allergy documented on EMR Reaction Allergy Type Onset Date Status ciprofloxacin Cipro shortness of breath Drug Allergy Active vancomycin Vancocin rash Drug Allergy Active Results Component Value Reference Range Notes EKG (Not yet reviewed by pro vider) Interpretation: Performing Lab: Notes/Report: ECGDiastolicBP 72 ECGHr 60 ECGPRInterval 0 ECGPWaveAxis 1 ECGQRSDuration 126 ECGQrsWaveAxis 43 ECGQTcInterval 464 ECGQTInterval 464 ECGSystolicBP 130 ECGTWaveAxis 90 RR_DiastolicBP 0 RR_MaxRRInterval 0 RR_MeanHR 0 RR_MeanRRInterval 0 RR_MinRRInterval 0 RR_NumBeats 0 RR_NumNormalBeats 0 RR_SystolicBP 0 Reason For Referral Reason [facility]/ Dr. Lang Diagnosis 1 Chronic obstructive asthma (J44.9) Referral Organization [facility] [address] Referring Provider First Name ALEX Referring Provider Last Name WOOLDRIDGE Referring Provider Speciality Preventive Medicine Referred Provider Specialty Pulmonology General Notes Kaylee Mata 04:21:20 PM > Referral faxed over to Dr. Niels Lang Referral Priority Routine Reason [employer] Diagnosis 1 Shortness of breath (R06.02) Referral Organization [facility] [address] Referring Provider First Name ALEX Referring Provider Last Name MOHINI Referring Provider Speciality Preventive Medicine Referred Provider Specialty Other Medica l Care General Notes Kaylee Mata 04:30:23 PM > Referral sent due to cardiac/pulmonary hx Referral Priority Routine Medications Medication SIG (Take, Route, Frequency, Duration) Notes Start Date End Date Status Aspirin 81 Active Rosuvastatin Calcium 20 MG 1 tablet Oral ly Once a day; Duration: 90 days 10/30/2023 Active Albuterol Active Fish Oil Active B Complex Active Digoxin 125 MCG Oral; Duration: 30 Days Active Eliquis 5 MG Oral; Duration: 30 Days Active Anoro Ellipta 62.5-25 MCG/ACT Inhalation; Duration: 90 Days Active Bumetanide 1 MG TAKE 1 TAB ORALLY 2 TIMES A DAY AT 800 AND 1700 Oral; Duration: 30 Days Active Farxiga 10 MG Oral; Duration: 90 Days Active Spironolactone 25 MG Oral; Duration: 30 Days Active Calcium Carbonate 1250 (500 Ca) MG 1 tablet with food Orally once daily Active Problems Problem Type SNOMED Code ICD Code Onset Dates Problem Status W/U Status Risk Notes Problem Chronic diastolic heart failure (335242914) Chronic diastolic (congestive) heart failure (I50.32) Active confirmed Problem Shortness of breath (014583277) Shortness of breath (R06.02) Active confirmed Problem Hyperlipidemia (08604154) Other hyperlipidemia (E78.49) Active confirmed Problem Arthritis (8948311) Arthritis (M19.90) Active confirmed Problem COPD - Chronic obstructive pulmonary disease (83167449) Chronic obstructive pulmonary disease, unspecified COPD type (J44.9) Active confirmed Problem Pulmonary hypertension (99820821) Pulmonary hypertension (I27.20) Active confirmed Problem Chronic atrial fibrillation (338986630) Chronic atrial fibrillation (I48.20) Active confirmed Problem Cornea transplant recipient (582226959) Cornea transplant recipient (Z94.7) Active confirmed Problem Acute on chronic diastolic heart failure (903595959) Acute on chronic diastolic congestive heart failure (I50.33) Active confirmed Problem Persistent atrial fibrillation (348223475) Persistent atrial fibrillation (I48.19) Active confirmed Vital Signs Heart Rate 60 /min 07/07/2024 Respiratory Rate 24 /min 10/16/2023 Oximetry 88 % 07/07/2024 Blood pressure diastolic 80 mm Hg 07/07/2024 Height 71 in 07/07/2024 Blood pressure systolic 120 mm Hg 07/07/2024 Weight 254.6 lbs 07/07/2024 BMI 35.51 kg/m2 07/07/2024 Encounters Encounter Location Date Provider Diagnosis [facility] [address] [address] 10/02/2023 ALEX MOHINI Chronic congestive h eart failure, unspecified heart failure type I50.9 ; Chronic obstructive pulmonary disease, unspecified COPD type J44.9 ; Atrial fibrillation, unspecified type I48.91 and Primary hypertension I10 [facility] [address] [address] 10/16/2023 ALEX POLLOCKHAM COPD without exacerbation J44.9 ; Pulmonary hypertension I27.20 ; Chronic diastolic (congestive) heart failure I50.32 ; Chronic atrial fibrillation I48.20 ; Primary hypertension I10 and Advance care planning Z71.89 [facility] [address] [address] 01/22/2024 ALEX MOHINI Chronic congestive h eart failure, unspecified heart failure type I50.9 ; Atrial fibrillation, unspecified type I48.91 ; Primary hypertension I10 ; Chronic obstructive pulmonary disease, unspecified COPD type J44.9 ; Pulmonary hypertension I27.20 and Need for home health care Z74.2 [facility] [address] [address] 05/08/2024 ALEX POLLOCKHAM Chronic obstructive pulmonary disease, unspecified COPD type J44.9 ; Hypoxia R09.02 ; Pulmonary hypertension I27.20 ; Persistent atrial fibrillation I48.19 ; Acute on chronic diastolic congestive heart failure I50.33 ; Other hyperlipidemia E78.49 and Therapeutic drug monitoring Z51.81 [facility] [address] [address] 07/07/2024 ALEX POLLOCKHAM Chronic obstructive pulmonary disease, unspecified COPD type J44.9 ; Pulmonary hypertension I27.20 ; Persistent atrial fibrillation I48.19 ; Encounter for examination of blood pressure without abnormal findings Z01.30 ; Therapeutic drug monitoring Z51.81 ; Acute on chronic diastolic congestive heart failure I50.33 ; Other hyperlipidemia E78.49 and Cornea transplant recipient Z94.7 [facility] [address] [address] 10/17/2023 ALEX WOOLDRIDGE [facility] [address] [address] 10/23/2023 ALEX WOOLDRIDGE [facility] [address] [place] [address] 10/24/2023 ALEX WOOLDRIDGE [facility] [address] [place] [address] 10/30/2023 ALEX WOOLDRIDGE [facility] [address] [place] [address] 11/06/2023 ALEX WOOLDRIDGE [facility] [address] [place] [address] 11/08/2023 ALEX WOOLDRIDGE [facility] [address] [place] [address] 11/09/2023 LAEX WOOLDRIDGE [facility] [address] [place] [address] 11/29/2023 ALEX WOOLDRIDGE [facility] [address] [place] [address] 12/21/2023 ALEX WOOLDRIDGE [facility] [address] [place] [address] 12/26/2023 ALEX WOOLDRIDGE [facility] [address] [place] [address] 01/01/2024 ALEX WOOLDRIDGE [facility] [address] [place] [address] 01/22/2024 ALEX WOOLDRIDGE [facility] [address] [place] [address] 04/16/2024 ALEX WOOLDRIDGE [facility] [address] [place] [address] 04/29/2024 ALEX WOOLDRIDGE [facility] [address] [place] [address] 05/08/2024 ALEX WOOLDRIDGE [facility] [address] [place] [address] 05/12/2024 ALEX WOOLDRIDGE [facility] [address] [place] [address] 05/14/2024 ALEX WOOLDRIDGE [facility] [address] [place] [address] 06/13/2024 ALEX WOOLDRIDGE [facility] [address] [place] [address] 07/07/2024 ALEX RAJAN [facility] [address] [place] [address] 07/07/2024 ALEX RAJAN Assessments Encounter Date Diagnosis (ICD Code) Assessment Notes Treatment Notes Treatment Clinical Notes [...] and rosuvastatin 20 mg daily. Follows with rubber roller grinder Dr. Enriquez with [facility]. Most recent INR drawn 10/01/2023 -resulted [...] needed for shortness of breath. Follows with [facility] Dr. Lang with [facility]. Plan to request records for continued [...] reviewed. Dictation completed with the use of [employer] voice recognition software, prone to medical misidentifications [...] and rosuvastatin 20 mg daily. Follows with rubber roller grinder Dr. Enriquez with [facility]. Most recent INR drawn 10/01/2023 -resulted [...] needed for shortness of breath. Follows with [facility] Dr. Lang with [facility]. Plan to request records for continued [...] reviewed. Dictation completed with the use of [employer] voice recognition software, prone to medical misidentifications [...] today. #CHF/A-fib: Follows with Dr. Enriquez with [facility]. Medical records obtained and reviewed, most [...] needed for shortness of breath. Follows with [facility] Dr. Lang with [facility]. Plan to request records for continued [...] reviewed. Dictation completed with the use of [employer] voice recognition software, prone to medical misidentifications [...] today. #CHF/A-fib: Follows with Dr. Enriquez with [facility]. Medical records obtained and reviewed, most [...] needed for shortness of breath. Follows with [facility] Dr. Lang with [facility]. Plan to request records for continued [...] reviewed. Dictation completed with the use of [employer] voice recognition software, prone to medical misidentifications [...] today. #CHF/A-fib: Follows with Dr. Enriquez with [facility]. Most recent visit 11/2023 during which [...] needed for shortness of breath. Follows with [facility] Dr. Lang with [facility]. Last seen with Dr. Lang late [...] for home health services. Referral sent to [facility] with goal of setting this up for the patient. All questions answered to the patient's satisfaction. Patient demonstrates understanding of diagnosis and treatments discussed. Follow-up in 3 months, sooner should any questions/concerns arise. Case discussed with collaborating physician Monica Stanley who has reviewed the assessment/plan. Chart, medications, labs, and vital signs reviewed. Dictation completed with the use of [employer] voice recognition software, prone to medical misidentifications [...] follow-up visit today. #CHF/A-fib: Follows with Dr. Enrqiuez with [facility]. Most recent visit 11/2023 during which [...] needed for shortness of breath. Follows with [facility] Dr. Lang with [facility]. Last seen with Dr. Lang late [...] for home health services. Referral sent to [facility] with goal of setting this up for the patient. All questions answered to the patient's satisfaction. Patient demonstrates understanding of diagnosis and treatments discussed. Follow-up in 3 months, sooner should any questions/concerns arise. Case discussed with collaborating physician Monica Stanley who has reviewed the assessment/plan. Chart, medications, labs, and vital signs reviewed. Dictation completed with the use of [employer] voice recognition software, prone to medical misidentifications [...] 04/21/2024 - 04/29/2024. Patient initially presented to [facility] ED 04/21/2024 at the recommendation of his [facility] for evaluation of worsening shortness of breath [...] daily. Follows with Dr. Enriquez out of [place], seen in office yesterday. #COPD/pulmonary HTN: Patient [...] place of metoprolol. Saw cardiology yesterday with [facility] - no labs were ordered. Serum [...] reviewed. Dictation completed with the use of [employer] voice recognition software, prone to medical misidentifications [...] 04/21/2024 - 04/29/2024. Patient initially presented to [facility] ED 04/21/2024 at the recommendation of his [facility] [employer] [facility] for evaluation of worsening shortness of breath [...] daily. Follows with Dr. Enriquez out of [place], seen in office yesterday. #COPD/pulmonary HTN: Patient [...] place of metoprolol. Saw cardiology yesterday with [facility] - no labs were ordered. Serum [...] reviewed. Dictation completed with the use of [employer] voice recognition software, prone to medical misidentifications and grammatical errors. All errors are unintentional. Although the practitioner does try to identify and correct errors, some may be present. Please do not hesitate to contact the practitioner for clarification. 07/07/2024 Chronic obstructive pulmonary disease, unspecified COPD type (ICD-10 - J44.9) Ketan is a 64-year-old male with a PMH of COPD, pulmonary HTN, A-fib, diastolic heart failure presents for routine follow-up #Heart failure: Patient currently taking spironolactone 25 mg twice daily, bumetanide 1 mg twice daily, and Farxiga 10mg once daily. Follows with Dr. Enriquez. Weighing himself daily with instructions to contact cardiology for any 3+lb weight gain. #COPD/pulmonary HTN: Patient currently on 4-6 L supplemental O2 at baseline. Was discharged with script for sildenafil 20 mg 3 times daily, has not yet been approved by his insurance company. Continue Anoro Ellipta inhaler once daily. Patient encouraged to contact pulmonology today for continued care. #A-fib: Metoprolol discontinued due to soft BPs while inpatient. Currently, taking Eliquis 5 mg twice daily, also started on digoxin 125 mcg once daily for rate control in place of metoprolol. Home HRs average high 50s - low 60s, home BP 108-128/65-85. Records from [place] requested to evaluate serum digoxin level. #HLD: Continue rosuvastatin 20 mg once daily and omega-3/fatty acids 360-1200 mg capsule once daily. #History of left cornea replacement: Patient with history of cataract repair and cornea/lens replacement of the left eye. Presents today with an eye patch covering the left eye. States this is due to progressive irritation. Reports very little visual acuity in the eye -denies changes to vision. Denies the presence of discharge or excessive tearing. No eye pain. No headaches. On exam there is significant conjunctival injection including of the lens. He is encouraged to follow-up with his nurse aide evaluator Dr. Hever An for continued evaluation. All questions answered to the patient's satisfaction. Patient demonstrates understanding of diagnosis and treatments discussed. Follow-up at next scheduled appointment, sooner should any questions/concerns arise. Case discussed with collaborating physician Monica Stanley who has reviewed the assessment/plan. Chart, medications, labs, and vital signs reviewed. Dictation completed with the use of [employer] voice recognition software, prone to medical misidentifications and grammatical errors. All errors are unintentional. Although the practitioner does try to identify and correct errors, some may be present. Please do not hesitate to contact the practitioner for clarification. 07/07/2024 Pulmonary hypertension (ICD-10 - I27.20) Ketan is a 64-year-old male with a PMH of COPD, pulmonary HTN, A-fib, diastolic heart failure presents for routine follow-up #Heart failure: Patient currently taking spironolactone 25 mg twice daily, bumetanide 1 mg twice daily, and Farxiga 10mg once daily. Follows with Dr. Enriquez. Weighing himself daily with instructions to contact cardiology for any 3+lb weight gain. #COPD/pulmonary HTN: Patient currently on 4-6 L supplemental O2 at baseline. Was discharged with script for sildenafil 20 mg 3 times daily, has not yet been approved by his insurance company. Continue Anoro Ellipta inhaler once daily. Patient encouraged to contact pulmonology today for continued care. #A-fib: Metoprolol discontinued due to soft BPs while inpatient. Currently, taking Eliquis 5 mg twice daily, also started on digoxin 125 mcg once daily for rate control in place of metoprolol. Home HRs average high 50s - low 60s, home BP 108-128/65-85. Records from [place] requested to evaluate serum digoxin level. #HLD: Continue rosuvastatin 20 mg once daily and omega-3/fatty acids 360-1200 mg capsule once daily. #History of left cornea replacement: Patient with history of cataract repair and cornea/lens replacement of the left eye. Presents today with an eye patch covering the left eye. States this is due to progressive irritation. Reports very little visual acuity in the eye -denies changes to vision. Denies the presence of discharge or excessive tearing. No eye pain. No headaches. On exam there is significant conjunctival injection including of the lens. He is encouraged to follow-up with his nurse aide evaluator Dr. Hever An for continued evaluation. All questions answered to the patient's satisfaction. Patient demonstrates understanding of diagnosis and treatments discussed. Follow-up at next scheduled appointment, sooner should any questions/concerns arise. Case discussed with collaborating physician Monica Stanley who has reviewed the assessment/plan. Chart, medications, labs, and vital signs reviewed. Dictation completed with the use of [employer] voice recognition software, prone to medical misidentifications and grammatical errors. All errors are unintentional. Although the practitioner does try to identify and correct errors, some may be present. Please do not hesitate to contact the practitioner for clarification. 07/07/2024 Persistent atrial fibrillation (ICD-10 - I48.19) Ketan is a 64-year-old male with a PMH of COPD, pulmonary HTN, A-fib, diastolic heart failure presents for routine follow-up #Heart failure: Patient currently taking spironolactone 25 mg twice daily, bumetanide 1 mg twice daily, and Farxiga 10mg once daily. Follows with Dr. Enriquez. Weighing himself daily with instructions to contact cardiology for any 3+lb weight gain. #COPD/pulmonary HTN: Patient currently on 4-6 L supplemental O2 at baseline. Was discharged with script for sildenafil 20 mg 3 times daily, has not yet been approved by his insurance company. Continue Anoro Ellipta inhaler once daily. Patient encouraged to contact pulmonology today for continued care. #A-fib: Metoprolol discontinued due to soft BPs while inpatient. Currently, taking Eliquis 5 mg twice daily, also started on digoxin 125 mcg once daily for rate control in place of metoprolol. Home HRs average high 50s - low 60s, home BP 108-128/65-85. Records from [place] requested to evaluate serum digoxin level. #HLD: Continue rosuvastatin 20 mg once daily and omega-3/fatty acids 360-1200 mg capsule once daily. #History of left cornea replacement: Patient with history of cataract repair and cornea/lens replacement of the left eye. Presents today with an eye patch covering the left eye. States this is due to progressive irritation. Reports very little visual acuity in the eye -denies changes to vision. Denies the presence of discharge or excessive tearing. No eye pain. No headaches. On exam there is significant conjunctival injection including of the lens. He is encouraged to follow-up with his nurse aide evaluator Dr. Hever An for continued evaluation. All questions answered to the patient's satisfaction. Patient demonstrates understanding of diagnosis and treatments discussed. Follow-up at next scheduled appointment, sooner should any questions/concerns arise. Case discussed with collaborating physician Monica Stanley who has reviewed the assessment/plan. Chart, medications, labs, and vital signs reviewed. Dictation completed with the use of [employer] voice recognition software, prone to medical misidentifications [...] 04/21/2024 - 04/29/2024. Patient initially presented to [facility] ED 04/21/2024 at the recommendation of his [facility] [employer] [facility] for evaluation of worsening shortness of breath [...] daily. Follows with Dr. Enriquez out of [place], seen in office yesterday. #COPD/pulmonary HTN: Patient [...] place of metoprolol. Saw cardiology yesterday with [facility] - no labs were ordered. Serum [...] reviewed. Dictation completed with the use of [employer] voice recognition software, prone to medical misidentifications [...] today. #CHF/A-fib: Follows with Dr. Enriquez with [facility]. Most recent visit 11/2023 during which [...] needed for shortness of breath. Follows with [facility] Dr. Lang with [facility]. Last seen with Dr. Lang late [...] reviewed. Dictation completed with the use of [employer] voice recognition software, prone to medical misidentifications [...] today. #CHF/A-fib: Follows with Dr. Enriquez with [facility]. Medical records obtained and reviewed, most [...] needed for shortness of breath. Follows with [facility] Dr. Lang with [facility]. Plan to request records for continued [...] reviewed. Dictation completed with the use of [employer] voice recognition software, prone to medical misidentifications [...] and rosuvastatin 20 mg daily. Follows with rubber roller grinder Dr. Enriquez with [facility]. Most recent INR drawn 10/01/2023 -resulted [...] needed for shortness of breath. Follows with [facility] [employer] [facility] Dr. Lang with [facility]. Plan to request records for continued [...] reviewed. Dictation completed with the use of [employer] voice recognition software, prone to medical misidentifications [...] and rosuvastatin 20 mg daily. Follows with rubber roller grinder Dr. Enriquez with [facility]. Most recent INR drawn 10/01/2023 -resulted [...] needed for shortness of breath. Follows with [facility] [employer] [facility] Dr. Lang with [facility]. Plan to request records for continued [...] reviewed. Dictation completed with the use of [employer] voice recognition software, prone to medical misidentifications [...] today. #CHF/A-fib: Follows with Dr. Enriquez with [facility]. Most recent visit 11/2023 during which [...] needed for shortness of breath. Follows with [facility] Dr. Lang with [facility]. Last seen with Dr. Lang late [...] reviewed. Dictation completed with the use of [employer] voice recognition software, prone to medical misidentifications [...] today. #CHF/A-fib: Follows with Dr. Enriquez with [facility]. Medical records obtained and reviewed, most [...] needed for shortness of breath. Follows with [facility] Dr. Lang with [facility]. Plan to request records for continued care. Recommending no changes to current regimen at this time. #Most/Healthcare proxy: Patient provided with MOST form and healthcare proxy form at time of last visit. Patient returns with forms completed today. Patient has designated eRnée Tejada, his sister as his designated healthcare [...] reviewed. Dictation completed with the use of [employer] voice recognition software, prone to medical misidentifications and grammatical errors. All errors are unintentional. Although the practitioner does try to identify and correct errors, some may be present. Please do not hesitate to contact the practitioner for clarification. 07/07/2024 Encounter for examination of blood pressure without abnormal findings (ICD-10 - Z01.30) Ketan is a 64-year-old male with a PMH of COPD, pulmonary HTN, A-fib, diastolic heart failure presents for routine follow-up #Heart failure: Patient currently taking spironolactone 25 mg twice daily, bumetanide 1 mg twice daily, and Farxiga 10mg once daily. Follows with Dr. Enriquez. Weighing himself daily with instructions to contact cardiology for any 3+lb weight gain. #COPD/pulmonary HTN: Patient currently on 4-6 L supplemental O2 at baseline. Was discharged with script for sildenafil 20 mg 3 times daily, has not yet been approved by his insurance company. Continue Anoro Ellipta inhaler once daily. Patient encouraged to contact pulmonology today for continued care. #A-fib: Metoprolol discontinued due to soft BPs while inpatient. Currently, taking Eliquis 5 mg twice daily, also started on digoxin 125 mcg once daily for rate control in place of metoprolol. Home HRs average high 50s - low 60s, home BP 108-128/65-85. Records from [place] requested to evaluate serum digoxin level. #HLD: Continue rosuvastatin 20 mg once daily and omega-3/fatty acids 360-1200 mg capsule once daily. #History of left cornea replacement: Patient with history of cataract repair and cornea/lens replacement of the left eye. Presents today with an eye patch covering the left eye. States this is due to progressive irritation. Reports very little visual acuity in the eye -denies changes to vision. Denies the presence of discharge or excessive tearing. No eye pain. No headaches. On exam there is significant conjunctival injection including of the lens. He is encouraged to follow-up with his nurse aide evaluator Dr. Hever An for continued evaluation. All questions answered to the patient's satisfaction. Patient demonstrates understanding of diagnosis and treatments discussed. Follow-up at next scheduled appointment, sooner should any questions/concerns arise. Case discussed with collaborating physician Monica Stanley who has reviewed the assessment/plan. Chart, medications, labs, and vital signs reviewed. Dictation completed with the use of [employer] voice recognition software, prone to medical misidentifications [...] 04/21/2024 - 04/29/2024. Patient initially presented to [facility] ED 04/21/2024 at the recommendation of his [facility] [employer] [facility] for evaluation of worsening shortness of breath [...] daily. Follows with Dr. Enriquez out of [place], seen in office yesterday. #COPD/pulmonary HTN: Patient [...] place of metoprolol. Saw cardiology yesterday with [facility] - no labs were ordered. Serum [...] reviewed. Dictation completed with the use of [employer] voice recognition software, prone to medical misidentifications [...] 04/21/2024 - 04/29/2024. Patient initially presented to [facility] ED 04/21/2024 at the recommendation of his [employer] for evaluation of worsening shortness of breath [...] daily. Follows with Dr. Enriquez out of [place], seen in office yesterday. #COPD/pulmonary HTN: Patient [...] place of metoprolol. Saw cardiology yesterday with [facility] - no labs were ordered. Serum [...] reviewed. Dictation completed with the use of [employer] voice recognition software, prone to medical misidentifications and grammatical errors. All errors are unintentional. Although the practitioner does try to identify and correct errors, some may be present. Please do not hesitate to contact the practitioner for clarification. 07/07/2024 Therapeutic drug monitoring (ICD-10 - Z51.81) Ketan is a 64-year-old male with a PMH of COPD, pulmonary HTN, A-fib, diastolic heart failure presents for routine follow-up #Heart failure: Patient currently taking spironolactone 25 mg twice daily, bumetanide 1 mg twice daily, and Farxiga 10mg once daily. Follows with Dr. Enriquez. Weighing himself daily with instructions to contact cardiology for any 3+lb weight gain. #COPD/pulmonary HTN: Patient currently on 4-6 L supplemental O2 at baseline. Was discharged with script for sildenafil 20 mg 3 times daily, has not yet been approved by his insurance company. Continue Anoro Ellipta inhaler once daily. Patient encouraged to contact pulmonology today for continued care. #A-fib: Metoprolol discontinued due to soft BPs while inpatient. Currently, taking Eliquis 5 mg twice daily, also started on digoxin 125 mcg once daily for rate control in place of metoprolol. Home HRs average high 50s - low 60s, home BP 108-128/65-85. Records from [place] requested to evaluate serum digoxin level. #HLD: Continue rosuvastatin 20 mg once daily and omega-3/fatty acids 360-1200 mg capsule once daily. #History of left cornea replacement: Patient with history of cataract repair and cornea/lens replacement of the left eye. Presents today with an eye patch covering the left eye. States this is due to progressive irritation. Reports very little visual acuity in the eye -denies changes to vision. Denies the presence of discharge or excessive tearing. No eye pain. No headaches. On exam there is significant conjunctival injection including of the lens. He is encouraged to follow-up with his nurse aide evaluator Dr. Hever An for continued evaluation. All questions answered to the patient's satisfaction. Patient demonstrates understanding of diagnosis and treatments discussed. Follow-up at next scheduled appointment, sooner should any questions/concerns arise. Case discussed with collaborating physician Monica Stanley who has reviewed the assessment/plan. Chart, medications, labs, and vital signs reviewed. Dictation completed with the use of [employer] voice recognition software, prone to medical misidentifications [...] today. #CHF/A-fib: Follows with Dr. Enriquez with [facility]. Most recent visit 11/2023 during which [...] needed for shortness of breath. Follows with [facility] [employer] [facility] Dr. Lang with [facility]. Last seen with Dr. Lang late [...] reviewed. Dictation completed with the use of [employer] voice recognition software, prone to medical misidentifications [...] today. #CHF/A-fib: Follows with Dr. Enriquez with [facility]. Medical records obtained and reviewed, most [...] needed for shortness of breath. Follows with [facility] [employer] [facility] Dr. Lang with [facility]. Plan to request records for continued [...] reviewed. Dictation completed with the use of [employer] voice recognition software, prone to medical misidentifications [...] today. #CHF/A-fib: Follows with Dr. Enriquez with [facility]. Medical records obtained and reviewed, most [...] needed for shortness of breath. Follows with [employer] [facility] Dr. Lang with [facility]. Plan to request records for continued [...] reviewed. Dictation completed with the use of [employer] voice recognition software, prone to medical misidentifications [...] today. #CHF/A-fib: Follows with Dr. Enriquez with [facility]. Most recent visit 11/2023 during which [...] needed for shortness of breath. Follows with [facility] [employer] [facility] Dr. Lang with [facility]. Last seen with Dr. Lang late [...] for home health services. Referral sent to [facility] with goal of setting this up for the patient. All questions answered to the patient's satisfaction. Patient demonstrates understanding of diagnosis and treatments discussed. Follow-up in 3 months, sooner should any questions/concerns arise. Case discussed with collaborating physician Monica Stanley who has reviewed the assessment/plan. Chart, medications, labs, and vital signs reviewed. Dictation completed with the use of [employer] voice recognition software, prone to medical misidentifications [...] 04/21/2024 - 04/29/2024. Patient initially presented to [facility] ED 04/21/2024 at the recommendation of his [employer] [facility] for evaluation of worsening shortness of breath [...] daily. Follows with Dr. Enriquez out of [place], seen in office yesterday. #COPD/pulmonary HTN: Patient [...] place of metoprolol. Saw cardiology yesterday with [facility] - no labs were ordered. Serum [...] reviewed. Dictation completed with the use of [employer] voice recognition software, prone to medical misidentifications and grammatical errors. All errors are unintentional. Although the practitioner does try to identify and correct errors, some may be present. Please do not hesitate to contact the practitioner for clarification. 07/07/2024 Acute on chronic diastolic congestive heart failure (ICD-10 - I50.33) Ketan is a 64-year-old male with a PMH of COPD, pulmonary HTN, A-fib, diastolic heart failure presents for routine follow-up #Heart failure: Patient currently taking spironolactone 25 mg twice daily, bumetanide 1 mg twice daily, and Farxiga 10mg once daily. Follows with Dr. Enriquez. Weighing himself daily with instructions to contact cardiology for any 3+lb weight gain. #COPD/pulmonary HTN: Patient currently on 4-6 L supplemental O2 at baseline. Was discharged with script for sildenafil 20 mg 3 times daily, has not yet been approved by his insurance company. Continue Anoro Ellipta inhaler once daily. Patient encouraged to contact pulmonology today for continued care. #A-fib: Metoprolol discontinued due to soft BPs while inpatient. Currently, taking Eliquis 5 mg twice daily, also started on digoxin 125 mcg once daily for rate control in place of metoprolol. Home HRs average high 50s - low 60s, home BP 108-128/65-85. Records from [place] requested to evaluate serum digoxin level. #HLD: Continue rosuvastatin 20 mg once daily and omega-3/fatty acids 360-1200 mg capsule once daily. #History of left cornea replacement: Patient with history of cataract repair and cornea/lens replacement of the left eye. Presents today with an eye patch covering the left eye. States this is due to progressive irritation. Reports very little visual acuity in the eye -denies changes to vision. Denies the presence of discharge or excessive tearing. No eye pain. No headaches. On exam there is significant conjunctival injection including of the lens. He is encouraged to follow-up with his nurse aide evaluator Dr. Hever An for continued evaluation. All questions answered to the patient's satisfaction. Patient demonstrates understanding of diagnosis and treatments discussed. Follow-up at next scheduled appointment, sooner should any questions/concerns arise. Case discussed with collaborating physician Monica Stanley who has reviewed the assessment/plan. Chart, medications, labs, and vital signs reviewed. Dictation completed with the use of [employer] voice recognition software, prone to medical misidentifications [...] 04/21/2024 - 04/29/2024. Patient initially presented to [facility] ED 04/21/2024 at the recommendation of his [employer] [facility] for evaluation of worsening shortness of breath [...] daily. Follows with Dr. Enriquez out of [place], seen in office yesterday. #COPD/pulmonary HTN: Patient [...] place of metoprolol. Saw cardiology yesterday with [facility] - no labs were ordered. Serum [...] reviewed. Dictation completed with the use of [employer] voice recognition software, prone to medical misidentifications and grammatical errors. All errors are unintentional. Although the practitioner does try to identify and correct errors, some may be present. Please do not hesitate to contact the practitioner for clarification. 07/07/2024 Other hyperlipidemia (ICD-10 - E78.49) Ketan is a 64-year-old male with a PMH of COPD, pulmonary HTN, A-fib, diastolic heart failure presents for routine follow-up #Heart failure: Patient currently taking spironolactone 25 mg twice daily, bumetanide 1 mg twice daily, and Farxiga 10mg once daily. Follows with Dr. Enriquez. Weighing himself daily with instructions to contact cardiology for any 3+lb weight gain. #COPD/pulmonary HTN: Patient currently on 4-6 L supplemental O2 at baseline. Was discharged with script for sildenafil 20 mg 3 times daily, has not yet been approved by his insurance company. Continue Anoro Ellipta inhaler once daily. Patient encouraged to contact pulmonology today for continued care. #A-fib: Metoprolol discontinued due to soft BPs while inpatient. Currently, taking Eliquis 5 mg twice daily, also started on digoxin 125 mcg once daily for rate control in place of metoprolol. Home HRs average high 50s - low 60s, home BP 108-128/65-85. Records from [place] requested to evaluate serum digoxin level. #HLD: Continue rosuvastatin 20 mg once daily and omega-3/fatty acids 360-1200 mg capsule once daily. #History of left cornea replacement: Patient with history of cataract repair and cornea/lens replacement of the left eye. Presents today with an eye patch covering the left eye. States this is due to progressive irritation. Reports very little visual acuity in the eye -denies changes to vision. Denies the presence of discharge or excessive tearing. No eye pain. No headaches. On exam there is significant conjunctival injection including of the lens. He is encouraged to follow-up with his nurse aide evaluator Dr. Hever An for continued evaluation. All questions answered to the patient's satisfaction. Patient demonstrates understanding of diagnosis and treatments discussed. Follow-up at next scheduled appointment, sooner should any questions/concerns arise. Case discussed with collaborating physician Monica Stanley who has reviewed the assessment/plan. Chart, medications, labs, and vital signs reviewed. Dictation completed with the use of [employer] voice recognition software, prone to medical misidentifications and grammatical errors. All errors are unintentional. Although the practitioner does try to identify and correct errors, some may be present. Please do not hesitate to contact the practitioner for clarification. 07/07/2024 Cornea transplant recipient (ICD-10 - Z94.7) Ketan is a 64-year-old male with a PMH of COPD, pulmonary HTN, A-fib, diastolic heart failure presents for routine follow-up #Heart failure: Patient currently taking spironolactone 25 mg twice daily, bumetanide 1 mg twice daily, and Farxiga 10mg once daily. Follows with Dr. Enriquez. Weighing himself daily with instructions to contact cardiology for any 3+lb weight gain. #COPD/pulmonary HTN: Patient currently on 4-6 L supplemental O2 at baseline. Was discharged with script for sildenafil 20 mg 3 times daily, has not yet been approved by his insurance company. Continue Anoro Ellipta inhaler once daily. Patient encouraged to contact pulmonology today for continued care. #A-fib: Metoprolol discontinued due to soft BPs while inpatient. Currently, taking Eliquis 5 mg twice daily, also started on digoxin 125 mcg once daily for rate control in place of metoprolol. Home HRs average high 50s - low 60s, home BP 108-128/65-85. Records from [place] requested to evaluate serum digoxin level. #HLD: Continue rosuvastatin 20 mg once daily and omega-3/fatty acids 360-1200 mg capsule once daily. #History of left cornea replacement: Patient with history of cataract repair and cornea/lens replacement of the left eye. Presents today with an eye patch covering the left eye. States this is due to progressive irritation. Reports very little visual acuity in the eye -denies changes to vision. Denies the presence of discharge or excessive tearing. No eye pain. No headaches. On exam there is significant conjunctival injection including of the lens. He is encouraged to follow-up with his nurse aide evaluator Dr. Hever An for continued evaluation. All questions answered to the patient's satisfaction. Patient demonstrates understanding of diagnosis and treatments discussed. Follow-up at next scheduled appointment, sooner should any questions/concerns arise. Case discussed with collaborating physician Monica Stanley who has reviewed the assessment/plan. Chart, medications, labs, and vital signs reviewed. Dictation completed with the use of [employer] voice recognition software, prone to medical misidentifications and grammatical errors. All errors are unintentional. Although the practitioner does try to identify and correct errors, some may be present. Please do not hesitate to contact the practitioner for clarification. Plan Of Treatment Pending Test Test Name Order Date CBC With Differential/Platelet EKG 10/02/2023 CBC (COMPLETE BLOOD COUNT) WITH DIFF COMPREHENSIVE METABOLIC PANEL 10/02/2023 COMPREHENSIVE METABOLIC PANEL 05/08/2024 HEMOGLOBIN A1C 10/02/2023 LIPID PANEL 10/02/2023 TSH 10/02/2023 BNP (B -Type Natriuretic Peptide) 2023 PT/INR 10/02/2023 DIGOXIN 05/08/2024 Next Appt Details Provider Name:ALEX Arango, 10/13/2024 01:00:00 PM, [address], [address], [place], [address], Insurance Providers Payer Name Payer Address Payer Phone Subscriber Number Group Number Insured Name Patient Relationship to Insured Coverage Start Date Coverage End Date [employer]age [address] [place] [address] [phone] [id number] Ketan Cho Self - patient is the insured Medical (General) History Medical History History ICD Code COPD without exacerbation J44.9 Arthritis M19.90 Chronic diastolic (congestive) heart [place] I50.32 Pulmonary hypertension I27.20 Paroxysmal atrial fibrillation I48.0 Surgical History Surgery Date(Month/Year) mitral valve repair 2010 umbilical hernia repair 2013 L cornea transplant Hospitalization History Reason Date(Month/Year) Hypoxia/decompensated HF 04/2024 RSV/CAP 03/2023 pericardial effusion
== END 2024-09-30 13:05 | disposition home or self-care (01) ==
LOC: HO.HCS 12:41
PROVIDERS: Visit Provider Internal Medicine
DX: Z98.890 Other specified postprocedural states (principal); I50.812 Chronic right heart failure; I36.1 Nonrheumatic tricuspid (valve) insufficiency; I48.19 Other persistent atrial fibrillation; I27.20 Pulmonary hypertension, unspecified; I95.2 Hypotension due to drugs
CPT/HCPCS: 99214; G2211

== ENCOUNTER → 2024-09-30 12:40 | Outpatient (BNVA) | payer MEDICARE, SELFPAY ==
[2024-04-30 10:32] VITALS: BMI 42.4
== END ==
PROVIDERS: Visit Provider Internal Medicine
DX: I50.812 Chronic right heart failure (principal); Z98.890 Other specified postprocedural states; I36.1 Nonrheumatic tricuspid (valve) insufficiency; I48.19 Other persistent atrial fibrillation; I27.20 Pulmonary hypertension, unspecified
CPT/HCPCS: 99212

== ENCOUNTER 2024-11-27 18:08 | Inpatient (IN) | payer MEDICARE, SELFPAY ==
[2024-04-30 10:32] VITALS: BMI 42.4
[2024-11-27] VITALS (7 sets, daily range): BP systolic 109–156; BP diastolic 70–93; PULSE 46–78; RESP 18–29; TEMP 36.3; O2SAT 95–97; BMI 38.5
--- NOTE | ~2024-11-27 | CT_ITS ---
CLINICAL HISTORY: Abnormal chest x-ray, SOB --- Additional Notes or Special Instructions: Patient unable to tolerate scan at this time. CT angiography chest with contrast. 3D Postprocessing. Comparison: CR - XR CHEST 1V - 11/27/24 18:57 EDT CR/SR - XR CHEST 2 VIEWS - 04/21/24 11:35 EDT Findings: Marked cardiomegaly. Reflux of contrast into the hepatic veins suggesting right heart dysfunction. Unremarkable thoracic aorta and great vessels. No aneurysm. Enlarged main pulmonary artery, a finding that can be associated with pulmonary artery hypertension. No pulmonary artery embolus seen. The visualized thyroid and mediastinum are unremarkable. At the superior posterior aspect of the right upper lobe there is an 8 mm pulmonary nodule, series 7, image 32. Paraseptal emphysema present. There is scarring of the right middle lobe corresponding to the opacity seen on chest x-ray. No underlying mass lesion. Bilateral basilar atelectasis. The visualized upper abdomen is unremarkable. No acute fractures. IMPRESSION: 1. No pulmonary embolus. Enlarged main pulmonary artery, a finding that can be associated with pulmonary artery hypertension. 2. Right middle lobe scarring, corresponding to opacity seen on chest x-ray. 3. Paraseptal emphysema. 4. 8 mm nodule in the right upper lobe. 6-8 mm nodules have optional [address] follow-up in low risk, and 6-[address] follow-up followed by 18-[address] follow-up if no change in high risk patients. This document has been electronically signed by: Eduardo Solorzano MD on 11/28/2024 02:18:48
--- NOTE | ~2024-11-27 | XR_ITS ---
CLINICAL HISTORY: SOB 1 view chest x-ray Comparison: CR/SR - XR CHEST 2 VIEWS - 04/21/24 11:35 EDT Findings: There is persistent opacity in the lateral mid right lung. No effusion or pneumothorax. Coarse lung markings. Cardiomegaly, unchanged. No acute fracture. IMPRESSION: 1. Persistent opacity in the lateral mid right lung which could be area of malignancy or scarring. If clinically appropriate, this could be further evaluated with chest CT. 2. Coarse lung markings suggesting interstitial lung disease. This document has been electronically signed by: Eduardo Solorzano MD on 11/27/2024 19:37:20
--- NOTE | 2024-11-27 18:24 | ECG_ITS ---
Test Reason : SOB Blood Pressure : */* mmHG Vent. Rate : 78 BPM Atrial Rate : * BPM P-R Int : * ms QRS Dur : 112 ms QT Int : 406 ms P-R-T Axes : * 117 4 degrees QTcB Int : 462 ms Atrial fibrillation Right bundle branch block Septal infarct , age undetermined Abnormal ECG When compared with ECG of 25-Apr-2024 10:20, Premature ventricular complexes are no longer Present T wave inversion now evident in Anterior leads Referred By: Generic ED Physician Electronically Signed By: CHAD ALVARADO MD
--- NOTE | 2024-11-27 18:39 | ED.SOB ---
HPI - SOB/Dyspnea General Chief Complaint: Dyspnea Stated Complaint: Diff breathing hx: COPD BiPAP 4 L nc Time Seen by Provider: 11/27/24 18:29 Source: patient, EMS and old records reviewed Mode of arrival: EMS Limitations: no limitations History of Present Illness ED Provider: DR. Ross HPI Narrative: 64-year-old male history of interstitial lung disease with BiPAP at home, morbid obesity, chronic hypoxia on 4-6 L of O2, pulmonary hypertension, COPD, interstitial lung disease, persistent AFib, right-sided heart failure. presented for shortness of breath and cough no fever no chills. Patient found by EMS in acute distress and was transported on BiPAP machine to the ER. Related Data Home Medications ?Medication ?Instructions ?Recorded ?Confirmed aspirin 81 mg tablet,delayed 81 mg PO DAILY 03/12/20 09/30/24 release (Adult Low Dose Aspirin) cholecalciferol (vitamin D3) 50 50 mcg PO DAILY 03/12/20 09/30/24 mcg (2,000 unit) capsule omega-3 fatty acids-fish oil 360 1 cap PO DAILY 03/12/20 09/30/24 mg-1,200 mg capsule (Fish Oil) multivitamin 1 tab PO DAILY 07/12/20 09/30/24 Oxygen Home Use 06/14/22 09/30/24 vitamin B complex 1 tab PO DAILY 10/31/22 09/30/24 calcium carbonate 500 mg PO DAILY 01/01/23 09/30/24 coQ10 (ubiquinol) 100 mg capsule 100 mg PO DAILY 04/21/24 09/30/24 (Qunol Reyes CoQ10) Previous Rx's ?Medication ?Instructions ?Recorded rosuvastatin 20 mg tablet 20 mg PO BEDTIME 90 days #90 tabs 08/03/23 umeclidinium 62.5 mcg-vilanterol 1 inh inhalation DAILY 90 days #3 08/13/23 25 mcg/actuation powdr for ea inhalation (Anoro Ellipta) dapagliflozin propanediol 10 mg 10 mg PO DAILY #90 tabs 12/17/23 tablet (Farxiga) apixaban 5 mg tablet 5 mg PO BID #60 tabs 06/05/24 digoxin 125 mcg (0.125 mg) tablet 0.125 mg PO DAILY #30 tabs 06/06/24 sildenafil (pulm.hypertension) 20 10 mg (1/2 x 20 mg) PO TID 30 days 07/18/24 mg tablet #45 tabs bumetanide 1 mg tablet 1 mg PO BID #180 tabs 11/20/24 spironolactone 25 mg tablet 25 mg PO BID #180 tabs 11/20/24 Allergies Allergy/AdvReac Type Severity Reaction Status Date / Time ciprofloxacin (From CIPRO) Allergy Intermediate DIFFICULTY Verified 11/27/24 18:18 BREATHING vancomycin (VANCOMYCIN) Allergy Intermediate RASH, rash Verified 11/27/24 18:18 over whole body Review of Systems Review of Systems: All other systems are reviewed and are negative Constitutional: Reports as per HPI and Reports no additional constitutional complaints Eyes: Reports as per HPI and Reports no additional eye complaints Reports system reviewed and no additional complaints, except as documented Cardiovascular: Reports as per HPI and Reports no additional cardiovascular complaints Respiratory: Reports as per HPI and Reports no additional respiratory complaints Gastrointestinal: Reports as per HPI and Reports no additional gastrointestinal complaints Genitourinary: Reports no additional female genitourinary complaints Musculoskeletal: Reports no additional musculoskeletal complaints Skin/Breast: Reports system reviewed and no additional complaints, except as docu Psychiatric: Reports no additional psychiatric complaints Endocrine: Reports no additional endocrine complaints Hematologic/Lymphatic: Reports no additional hematologic/lymphatic complaints Allergic/Immunologic: Reports no additional allergic/immunologic complaints Reports system reviewed and no additional complaints, except as documented and Reports Abnormal speech present [facility] Past Medical History Medical History Pulmonary hypertension Pneumonia Chronic diastolic (congestive) heart failure Morbid obesity due to excess calories Mitral stenosis SOB (shortness of breath) Cor pulmonale Dyspnea Oxygen dependent Chronic hypoxemic respiratory failure Sleep apnea COPD (chronic obstructive pulmonary disease) Hyperlipidemia Atrial fibrillation Hypertension, essential Current use of anticoagulant therapy Surgical History History of carpal tunnel surgery History of colonoscopy History of thumb surgery History of mitral valve repair History of umbilical hernia History of tonsillectomy History of vasectomy Family History Family History Father No problems noted. Mother No problems noted. Brother No problems noted. Sister Mental health disorder Sister No problems noted. Sister No problems noted. Sister No problems noted. Son No problems noted. Daughter No problems noted. Social History Social History Household Members: None Housing: Apartment Do you presently have visiting nurse or other home services: Yes (home care twice a week) Alcohol intake: former Patient Tobacco Use Status: Former Tobacco user Tobacco use type: Cigarette Years Smoked: 25 Smoked in Last 30 Days: No e-Cigarette/Vaping Use: Never Used Second Hand Smoke Exposure: Yes (cigar smoke) Use of substances other than those prescribed or required for medical reasons: No Substance Use Type: Marijuana Advance Directives: Yes Advance Directives on File: Yes Advance Directives Date on File: 07/12/20 Do you have a plan to hurt others: No Plan service: No Current occupational status: disabled Cognitive needs: No Hearing needs: No Vision needs: Yes Physical Exam Vital Signs: Vital Signs: Last Vital Signs Temp 97.4 F 11/27/24 18:19 Pulse 78 11/27/24 18:19 Resp 29 H 11/27/24 18:29 BP 109/81 11/27/24 18:19 Pulse Ox 97 11/27/24 18:24 O2 Del Method BiPAP 11/27/24 18:24 BMI result Body Mass Index 38.5 Vital signs have been reviewed and appear to be correct. Blood pressure elevated. Heart rate normal. Respiratory rate normal. Temperature normal. Oxygen saturation normal. Appearance: Alert. Oriented X3. No acute distress. Head: Normal external exam. Normocephalic. Atraumatic. No Rodarte signs noted. No raccoon eyes noted Eyes: PERRLA. EOMI. Conjunctiva and sclera normal. Eyelids normal. ENT: TM's Normal. Pharynx normal. Uvula midline. Moist mucous membranes. No trismus noted. No drooling noted. No muffled voice noted. Neck: Normal inspection. Neck supple. FROM. No adenopathy. Thyroid Normal. No meningeal signs. No neck mass noted. CVS: Normal heart rate and rhythm. Heart sound normal. No murmurs noted. Pulses normal throughout. Respiratory: No respiratory distress. Painless inspiration. Breath sounds normal. No wheezes/rales/rhonchi noted. Chest nontender. No accessory muscle usage noted or decreased air movement noted. Abdomen: Soft and nontender. Bowel sounds normal in all 4 quadrants. No distention noted. No organomegaly noted. No visible injury noted. Back: No CVA tenderness. Full range of motion noted. Skin: Skin warm and dry. Normal skin color. Normal skin turgor. No rashes/lesions/lacerations noted. Extremities: No lower extremity edema. Extremities exhibit normal range of motion. Extremities nontender. Neuro: Oriented X 3. Cranial nerve exam: II-XII are grossly intact No motor deficit. No sensory deficit. Reflexes normal. Course Reevaluation(s) Reevaluation #1: 64-year-old male history of COPD and interstitial lung disease require supplemental oxygen 4-6 L at home and BiPAP machine at night patient increased use of BiPAP at home since yesterday with increased difficulty breathing. BiPAP machine is used because the underlying lung condition of restrictive lung disease and COPD and not for sepsis. Patient received Solu-Medrol bronchodilator in the ED. Because patient use BiPAP at home patient can be admitted to the regular floor on BiPAP machine. Time: 20:17 Medications Administered Discontinued Medications Generic Name Dose Route Start Last Admin Trade Name Freq PRN Reason Stop Dose Admin Albuterol Sulfate 2.5 mg/ 5 mg 11/27/24 18:34 11/27/24 18:40 Albuterol Sulfate 2.5 mg INHALE 11/27/24 18:35 5 mg ONCE ONE Administration Medical Decision Making Differential Diagnosis Differential Diagnoses: The differential diagnosis associated with the presentation includes (Pneumonia, pneumothorax, pleural effusion, electrolyte derangement, severe anemia.) Admission/Observation Consideration of admission/observation: Escalation of care including admission/observation considered Consult Healthcare Provider Management of the patient was discussed with: Hospitalist (Dr. Wiggins) Lab Data MDM Lab Attestation statement: I reviewed the patient's lab results. 11/27/24 18:55 11/27/24 18:55 Labs: Lab Results 11/27/24 11/27/24 11/27/24 Range/Units 15:54 15:54 18:55 WBC 8.2 (4.8-10.8) X10*3/uL RBC 5.70 (4.60-5.80) X10*6/uL Hgb 18.3 H (14.0-18.0) g/dl Hct 52.5 H (42.0-52.0) % MCV 92.1 (80.0-98.0) fL MCH 32.1 (27.0-33.0) pg MCHC 34.9 (31.0-36.0) g/dl RDW 15.8 (11.0-16.0) % Plt Count 146 L D (160-400) X10*3/uL MPV 9.8 (9.4-12.4) fL Immature Gran % (Auto) 1.8 H (0.0-0.4) % Neut % (Auto) 67.1 (45-73) % Lymph % (Auto) 20.5 (20-40) % [place] % (Auto) 9.2 (2-11) % Eos % (Auto) 0.5 (0-4) % Baso % (Auto) 0.9 (0-2) % Lymph # (Auto) 1.7 (1.2-4.9) X10*3/uL [place] # (Auto) 0.8 (0.1-1.2) X10*3/uL Eos # (Auto) 0.0 (0.0-0.4) X10*3/uL Baso # (Auto) 0.1 (0.0-0.2) X10*3/uL Abs Immat Gran (auto) 0.15 H (0.00-0.03) X10*3/uL Absolute Neuts (auto) 5.5 (2.0-8.3) x10*3/uL Absolute Nucleated RBC 0.000 (0.0-0.012) X10*3/uL Nucleated RBC % (auto) 0.0 (0.0-0.2) /100WBC Hold Purple Top SEE NOTE SEE NOTE PT (10.9-12.4) SEC INR (0.9-1.1) VBG pH (7.32-7.43) VBG pCO2 mmHg VBG pO2 mmHg VBG HCO3 (22-26) mmol/L VBG O2 Saturation % VBG Base Excess mmol/L Sodium 140 (135-145) mmol/L Potassium 3.6 (3.3-5.1) mmol/L Chloride 105 (96-108) mmol/L Carbon Dioxide 22 (22-29) mmol/L Anion Gap 17 (12-20) BUN 22 H (9-16) mg/dL Creatinine 0.75 (0.5-1.4) mg/dL Estim Creat Clear Calc 147.8 Estimated GFR > 60 Random Glucose 90 (60-115) mg/dL Lactic Acid (0.5-2.0) mmol/L Calcium 9.2 (8.4-10.2) mg/dL Total Bilirubin 1.3 H (0.0-1.0) mg/dL AST 44 H (5-37) U/L ALT 55 H (0-40) U/L Alkaline Phosphatase 105 (39-117) U/L Total Protein 6.1 L (6.5-8.0) g/dL Albumin 4.0 (3.5-5.0) g/dL Digoxin (0.8-2.0) ng/mL COVID-19 (KENJI) (Negative) COVID-19 Clin Com Influenza Type A (SAULO) (Negative) Influenza Type B (SAULO) (Negative) Influenza A & B Note 11/27/24 11/27/24 Range/Units 18:56 19:02 WBC (4.8-10.8) X10*3/uL RBC (4.60-5.80) X10*6/uL Hgb (14.0-18.0) g/dl Hct (42.0-52.0) % MCV (80.0-98.0) fL MCH (27.0-33.0) pg MCHC (31.0-36.0) g/dl RDW (11.0-16.0) % Plt Count (160-400) X10*3/uL MPV (9.4-12.4) fL Immature Gran % (Auto) (0.0-0.4) % Neut % (Auto) (45-73) % Lymph % (Auto) (20-40) % [place] % (Auto) (2-11) % Eos % (Auto) (0-4) % Baso % (Auto) (0-2) % Lymph # (Auto) (1.2-4.9) X10*3/uL [place] # (Auto) (0.1-1.2) X10*3/uL Eos # (Auto) (0.0-0.4) X10*3/uL Baso # (Auto) (0.0-0.2) X10*3/uL Abs Immat Gran (auto) (0.00-0.03) X10*3/uL Absolute Neuts (auto) (2.0-8.3) x10*3/uL Absolute Nucleated RBC (0.0-0.012) X10*3/uL Nucleated RBC % (auto) (0.0-0.2) /100WBC Hold Purple Top PT 14.8 H D (10.9-12.4) SEC INR 1.3 H (0.9-1.1) VBG pH 7.51 H (7.32-7.43) VBG pCO2 27 mmHg VBG pO2 169 mmHg VBG HCO3 22 (22-26) mmol/L VBG O2 Saturation 99.0 % VBG Base Excess 0.8 mmol/L Sodium (135-145) mmol/L Potassium (3.3-5.1) mmol/L Chloride (96-108) mmol/L Carbon Dioxide (22-29) mmol/L Anion Gap (12-20) BUN (9-16) mg/dL Creatinine (0.5-1.4) mg/dL Estim Creat Clear Calc Estimated GFR Random Glucose (60-115) mg/dL Lactic Acid 2.1 H* (0.5-2.0) mmol/L Calcium (8.4-10.2) mg/dL Total Bilirubin (0.0-1.0) mg/dL AST (5-37) U/L ALT (0-40) U/L Alkaline Phosphatase (39-117) U/L Total Protein (6.5-8.0) g/dL Albumin (3.5-5.0) g/dL Digoxin < 0.2 L (0.8-2.0) ng/mL COVID-19 (KENJI) Negative (Negative) COVID-19 Clin Com See Note Influenza Type A (SAULO) Negative (Negative) Influenza Type B (SAULO) Negative (Negative) Influenza A & B Note See Note Independent Interpretation I performed an independent interpretation of an: Plain X-Ray (Chest:1. Persistent opacity in the lateral mid right lung which could be area of malignancy or scarring. If clinically appropriate, this could be further evaluated with chest CT. 2. Coarse lung markings suggesting interstitial lung disease.) Radiology Impression Discussion of test interpretation with radiology: I have reviewed the radiologist's reading. Critical Care Time Critical Care Time Critical Care Time: Yes Total Critical Care Time: 60 Attestation: The patient was critically ill with a high probability of imminent or life-threatening deterioration. I spent greater than 30 minutes of discontinuous time evaluating the patient, delivering critical care at the bedside, discussing evaluating data with consultants. Critical care time does not include time spent performing separately billable procedures or teaching. Time spent performing critical care was 60 minutes. Discharge Plan Discharge Clinical Impression: Acute exacerbation of chronic obstructive pulmonary disease Patient Disposition: Admitted As Inpatient Print Language: Bulgarian
[2024-11-27] MEDS: Albuterol Sulfate 2.5 MG, Albuterol Sulfate (0.083%) 2.5 MG 5 MG INHALE (18:40)
[2024-11-27 19:02] LABS: MANUAL DIFF FLAG NO
[2024-11-27 19:05] LABS: Hematocrit 52.5 % (42.0-52.0); Hemoglobin 18.3 g/dl (14.0-18.0); Imm Gran Abs Auto 0.15 X10*3/uL (0.00-0.03); Imm Gran Pct Auto 1.8 % (0.0-0.4); Lymphocytes Absolute Auto 1.7 X10*3/uL (1.2-4.9); Mean Corpuscular HGB Conc 34.9 g/dl (31.0-36.0); Mean Corpuscular Hemoglobin 32.1 pg (27.0-33.0); Mean Corpuscular Volume 92.1 fL (80.0-98.0); NRBC Abs Auto 0.000 X10*3/uL (0.0-0.012); NRBC Pct Auto 0.0 /100WBC (0.0-0.2); Platelet Count 146 X10*3/uL (160-400); Red Blood Count 5.70 X10*6/uL (4.60-5.80); White Blood Count 8.2 X10*3/uL (4.8-10.8)
[2024-11-27 19:08] LABS: Venous Blood Gas Refer to POC result
[2024-11-27 19:10] LABS: VBG HCO3 22 mmol/L (22-26); VBG O2 % Saturation 99.0 %
[2024-11-27 19:10] LABS: INTERNATIONAL NORM RATIO 1.3 (0.9-1.1); Prothrombin Time 14.8 SEC (10.9-12.4)
[2024-11-27 19:19] LABS: Alanine Aminotransferase 55 U/L (0-40); Albumin Level 4.0 g/dL (3.5-5.0); Alkaline Phosphatase 105 U/L (39-117); Anion Gap 17 (12-20); Aspartate Amino Transferase 44 U/L (5-37); Blood Urea Nitrogen 22 mg/dL (9-16); Calcium 9.2 mg/dL (8.4-10.2); Carbon Dioxide 22 mmol/L (22-29); Chloride 105 mmol/L (96-108); Creatinine Clr Calc Pharmacy 147.8; Estimated Glomerular Filt Rate > 60; Potassium 3.6 mmol/L (3.3-5.1); Sodium 140 mmol/L (135-145); Total Protein 6.1 g/dL (6.5-8.0)
[2024-11-27 19:23] LABS: COVID-19 Test Negative (Negative); IDNOW Serial# 55D5AD1C; IDNOW Serial# 58CA691E; Influenza B2 Negative (Negative)
[2024-11-27 19:28] LABS: Digoxin < 0.2 ng/mL (0.8-2.0)
--- OUTSIDE RECORDS SUMMARY | 2024-11-27 19:49 | XMS_ITS | Encounter Summary ---
Author Organization [facility] Address [address] [place] [id number] Phone Care Team Providers Care English Professor Name Role Phone Pcp, Unknown Primary Care Provider Gregory Parada MD Primary Care Provider [phone] Encounter Details Date Type Department Care Team (Latest Contact Info) Description 12/02/2019 Transcribe Orders Virtual Department [address] [place] [address] Lilia Wheat PA [address] [place] [id number] Dysphagia, unspecified type (Primary Dx); Gastroesophageal reflux [...] was performed with Sodium Carbonate and Barium. Fiberglass Boat Builder view the neck demonstrates no findings of [...] was performed with Sodium Carbonate and Barium. Fiberglass Boat Builder view the neck demonstrates no findings of [...] hemorrhage documented in this encounter Care Teams English Professor Relationship Specialty Start Date End Date Pcp, Unknown PCP - General 12/03/19 12/08/19 Gregory Thompson MD [facility] [place] [address] PCP - General Internal Medicine 12/09/19 documented as of this encounter Additional Source Comments The information contained in this document represents components of the legal health record. It is not the complete legal health record.[facility]
--- OUTSIDE RECORDS SUMMARY | 2024-11-27 19:51 | XMS_ITS | Clinical Summary ---
Author Organization [facility] Address [address] [place] [address] Phone Care Team Providers Care Drafting Detailer Name Role Phone Trent Stanley MD Primary Care Provider [phone] Allergies Active Allergy Reactions Criticality Noted Date [...] patient's age to complete this topic Insurance [facility] Care Teams Drafting Detailer Relationship Specialty Start Date End Date Trent Stanley MD [address] [place] [address] PCP - General Internal Medicine 11/15/23
--- OUTSIDE RECORDS SUMMARY | 2024-11-27 19:51 | XMS_ITS | Clinical Summary ---
Author Organization [facility] Address [address] [place], [place] [id number] Phone Care Team Providers Care Supervisor Covering And Lining Name Role Phone Gregory Thompson MD Primary Care Provider [phone] Social History Tobacco Use Types Packs/Day Years [...] file Group ID:Not on file Type:Medicaid Address: [place] [id number] [facility] MEDICARE HMO BLUE REPLACEMENT HEALTH SAFETY NET PARTIAL [facility] MEDICARE HMO BLUE REPLACEMENT HEALTH SAFETY NET PARTIAL [facility] MEDICARE HMO BLUE REPLACEMENT HEALTH SAFETY NET PARTIAL Member Subscriber Plan / Payer (Ef fective 2019-Present) Name:Ketan Cho Relation to Subscriber:Self Name:Ketan Cho Payer ID:Not on file Group ID:Not on file Type:Medicaid Address: [place] [id number] [facility] MEDICARE HMO BLUE REPLACEMENT HEALTH SAFETY [place] [address] [place] [address] MEDICARE HMO BLUE REPLACEMENT HEALTH SAFETY NET PARTIAL Member Subscriber Plan / Payer (Ef fective 2019-Present) Name:Ketan Cho Relation to Subscriber:Self Name:Ketan Cho Payer ID:Not on file Group ID:Not on file Type:Medicaid Address: [place] [id number] [facility] MEDICARE HMO BLUE REPLACEMENT HEALTH SAFETY NET PARTIAL MEDICARE HMO BLUE REPLACEMENT HEALTH SAFETY NET PARTIAL Member Subscriber Plan / Payer (Ef fective 2019-Present) Name:Ketan Cho Relation to Subscriber:Self Name:Ketan Cho Payer ID:Not on file Group ID:Not on file Type:Medicaid Address: [place] [id number] [place] [address] MEDICARE HMO BLUE REPLACEMENT [facility] NET PARTIAL Care Teams Supervisor Covering And Lining Relationship Specialty Start Date End Date Gregory Thompson MD [facility] [place] [address] PCP - General Internal Medicine 12/09/19 Additional Source Comments The information contained in this document represents components of the legal health record. It is not the complete legal health record.[facility]
--- OUTSIDE RECORDS SUMMARY | 2024-11-27 19:51 | XMS_ITS | Patient Health Record ---
Author Organization [facility] [address] Address [address] [place] [address] Care Team Providers Care Automobile Inspector Name Role Phone ALEX RAJAN Unavailable [phone] Allergies Allergen (clinical drug ingredient) Drug/Non Drug Allergy documented on EMR Reaction Allergy Type Onset Date Status ciprofloxacin Cipro shortness of breath Drug Allergy Active vancomycin Vancocin rash Drug Allergy Active Reason For Referral Reason [facility]EMINGWAY Diagnosis 1 Shortness of breath (R06.02) Referral Organization [facility] [address] Referring Provider First Name ALEX Referring Provider Last Name OMHINI Referring Provider Speciality Preventive Medicine Referred Provider Specialty Other Medica l Care General Notes Kaylee Mata 024 04:30:23 PM > Referral sent due to cardiac/pulmonary hx Referral Priority Routine Medications Medication SIG (Take, Route, Frequency, Duration) Notes Start Date End Date Status B Complex Active Aspirin 81 Active Albuterol Active Sildenafil Citrate 20 MG TAKE 1/2 TABLET BY MOUTH 3 TIMES DAILY NEEDS PA Oral; Duration: 90 Days Active Anoro Ellipta 62.5-25 MCG/ACT Inhalation; Duration: 90 Days Active Bumetanide 1 MG TAKE 1 TAB ORALLY 2 TIMES A DAY AT 800 AND 1700 Oral; Duration: 30 Days Active Digoxin 125 MCG Oral; Duration: 30 Days Active Eliquis 5 MG Oral; Duration: 30 Days Active Rosuvastatin Calcium 20 MG TAKE 1 TABLET BY MOUTH EVERY DAY FOR 90 DAYS; Duration: 90 Active Farxiga 10 MG Oral; Duration: 90 Days Active Spironolactone 25 MG Oral; Duration: 30 Days Active Calcium Carbonate 1250 (500 Ca) MG 1 tablet with food Orally once daily Active Fish Oil Active Problems Problem Type SNOMED Code ICD Code Onset Dates Problem Status W/U Status Risk Notes Problem Chronic diastolic heart failure (555465922) Chronic diastolic (congestive) heart failure (I50.32) Active confirmed Problem Shortness of breath (298271656) Shortness of breath (R06.02) Active confirmed Problem Hyperlipidemia (23104402) Other hyperlipidemia (E78.49) Active confirmed Problem Arthritis (6669444) Arthritis (M19.90) Active confirmed Problem COPD - Chronic obstructive pulmonary disease (35027024) Chronic obstructive pulmonary disease, unspecified COPD type (J44.9) Active confirmed Problem Pulmonary hypertension (62918253) Pulmonary hypertension (I27.20) Active confirmed Problem Chronic atrial fibrillation (686486210) Chronic atrial fibrillation (I48.20) Active confirmed Problem Cornea transplant recipient (840902099) Cornea transplant recipient (Z94.7) Active confirmed Problem Acute on chronic diastolic heart failure (576671738) Acute on chronic diastolic congestive heart failure (I50.33) Active confirmed Problem Persistent atrial fibrillation (750086972) Persistent atrial fibrillation (I48.19) Active confirmed Vital Signs Heart Rate 56 /min 10/13/2024 Oximetry 92 % 10/13/2024 Blood pressure diastolic 82 mm Hg 10/13/2024 Height 71 in 10/13/2024 Blood pressure systolic 120 mm Hg 10/13/2024 Weight 248.3 lbs 10/13/2024 BMI 34.63 kg/m2 10/13/2024 Encounters Encounter Location Date Provider Diagnosis [facility] [address] [address] 01/22/2024 ALEX RAJAN Chronic congestive h eart failure, unspecified heart failure type I50.9 ; Atrial fibrillation, unspecified type I48.91 ; Primary hypertension I10 ; Chronic obstructive pulmonary disease, unspecified COPD type J44.9 ; Pulmonary hypertension I27.20 and Need for home health care Z74.2 [facility] [address] [address] 05/08/2024 ALEX RAJAN Chronic obstructive pulmonary disease, unspecified COPD type J44.9 ; Hypoxia R09.02 ; Pulmonary hypertension I27.20 ; Persistent atrial fibrillation I48.19 ; Acute on chronic diastolic congestive heart failure I50.33 ; Other hyperlipidemia E78.49 and Therapeutic drug monitoring Z51.81 [facility] [address] [address] 07/07/2024 [facility] Chronic obstructive pulmonary disease, unspecified COPD type J44.9 ; Pulmonary hypertension I27.20 ; Persistent atrial fibrillation I48.19 ; Encounter for examination of blood pressure without abnormal findings Z01.30 ; Therapeutic drug monitoring Z51.81 ; Acute on chronic diastolic congestive heart failure I50.33 ; Other hyperlipidemia E78.49 and Cornea transplant recipient Z94.7 [facility] [address] [place] [address] 10/13/2024 A[facility] [place] Chronic obstructive pulmonary disease, unspecified COPD type J44.9 ; Pulmonary hypertension I27.20 ; Persistent atrial fibrillation I48.19 ; Encounter for examination of blood pressure without abnormal findings Z01.30 ; Therapeutic drug monitoring Z51.81 ; Acute on chronic diastolic congestive heart failure I50.33 ; Other hyperlipidemia E78.49 and Cornea transplant recipient Z94.7 [facility] [address] [place] [address] 11/29/2023 [facility] [address] [place] [address] 12/21/2023 [facility] [address] [place] [address] 12/26/2023 [facility] [address] [place] [address] 01/01/2024 [facility] [address] [place] [address] 01/22/2024 [facility] [address] [place] [address] 04/16/2024 [facility] [address] [place] [address] 04/29/2024 [facility] [address] [place] [address] 05/08/2024 [facility] [address] [place] [address] 05/12/2024 [facility] [address] [place] [address] 05/14/2024 [facility] [address] [place] [address] 06/13/2024 [facility] [place] [address] [place] [address] 07/07/2024 [facility] [place] [facility] [address] [place] [address] 07/07/2024 [facility] [place] [facility] [address] [facility] [address] [place] [address] 11/11/2024 ALEX [place] Assessments Encounter Date Diagnosis (ICD Code) Assessment [...] today. #CHF/A-fib: Follows with Dr. Enriquez with [facility]. Most recent visit 11/2023 during which [...] needed for shortness of breath. Follows with pancake professional Dr. Lang with [facility]. Last seen with Dr. Lang late [...] home health services. Referral sent to [facility] with goal of setting this up for the patient. All questions answered to the patient's satisfaction. Patient demonstrates understanding of diagnosis and treatments discussed. Follow-up in 3 months, sooner should any questions/concerns arise. Case discussed with collaborating physician Monica Stanley who has reviewed the assessment/plan. Chart, medications, labs, and vital signs reviewed. Dictation completed with the use of [employer] voice recognition software, prone to medical misidentifications [...] today. #CHF/A-fib: Follows with Dr. Enriquez with [facility]. Most recent visit 11/2023 during which [...] needed for shortness of breath. Follows with pancake professional Dr. Lang with [facility]. Last seen with Dr. Lang late [...] for home health services. Referral sent to [facility] with goal of setting this up for the patient. All questions answered to the patient's satisfaction. Patient demonstrates understanding of diagnosis and treatments discussed. Follow-up in 3 months, sooner should any questions/concerns arise. Case discussed with collaborating physician Monica Stanley who has reviewed the assessment/plan. Chart, medications, labs, and vital signs reviewed. Dictation completed with the use of [employer] voice recognition software, prone to medical misidentifications [...] 04/21/2024 - 04/29/2024. Patient initially presented to [facility] ED 04/21/2024 at the recommendation of his pancake professional for evaluation of worsening shortness of breath [...] daily. Follows with Dr. Enriquez out of [place], seen in office yesterday. #COPD/pulmonary HTN: Patient [...] place of metoprolol. Saw cardiology yesterday with [facility] - no labs were ordered. Serum [...] reviewed. Dictation completed with the use of [employer] voice recognition software, prone to medical misidentifications [...] 04/21/2024 - 04/29/2024. Patient initially presented to [facility] ED 04/21/2024 at the recommendation of his pancake professional for evaluation of worsening shortness of breath [...] daily. Follows with Dr. Enriquez out of [place], seen in office yesterday. #COPD/pulmonary HTN: Patient [...] place of metoprolol. Saw cardiology yesterday with [facility] - no labs were ordered. Serum [...] reviewed. Dictation completed with the use of [employer] voice recognition software, prone to medical misidentifications [...] low 60s, home BP 108-128/65-85. Records from [place] requested to evaluate serum digoxin level. #HLD: [...] He is encouraged to follow-up with his python developer Dr. Hever An for continued evaluation. All questions answered to the patient's satisfaction. Patient demonstrates understanding of diagnosis and treatments discussed. Follow-up at next scheduled appointment, sooner should any questions/concerns arise. Case discussed with collaborating physician Monica Stanley who has reviewed the assessment/plan. Chart, medications, labs, and vital signs reviewed. Dictation completed with the use of [employer] voice recognition software, prone to medical misidentifications [...] low 60s, home BP 108-128/65-85. Records from [place] requested to evaluate serum digoxin level. #HLD: [...] He is encouraged to follow-up with his python developer Dr. Hever An for continued evaluation. All questions answered to the patient's satisfaction. Patient demonstrates understanding of diagnosis and treatments discussed. Follow-up at next scheduled appointment, sooner should any questions/concerns arise. Case discussed with collaborating physician Monica Stanley who has reviewed the assessment/plan. Chart, medications, labs, and vital signs reviewed. Dictation completed with the use of [employer] voice recognition software, prone to medical misidentifications and grammatical errors. All errors are unintentional. Although the practitioner does try to identify and correct errors, some may be present. Please do not hesitate to contact the practitioner for clarification. 10/13/2024 Chronic obstructive pulmonary disease, unspecified COPD type (ICD-10 - J44.9) Ketan is a 64-year-old male with a PMH of COPD, pulmonary HTN, A-fib, diastolic heart failure presents for routine follow-up #Heart failure: Weighing himself regularly with instructions to contact cardiology for any 3+lb weight gain. Saw Dr. Enriquez. 09/30/2024 at which time most recent echo revealed right heart enlargement in flail tricuspid leaflet with significant regurgitation. Per note review plan is to proceed symptomatic management including as needed diuresis. Continue spironolactone 25 mg twice daily, bumetanide 1 mg twice daily, and Farxiga 10mg once daily. #COPD/pulmonary HTN: Follows with Dr. Lang. Patient currently on 4 L supplemental O2 at baseline. Continue sildenafil 10 mg 3 times daily and Anoro Ellipta inhaler once daily. #A-fib: Currently, taking Eliquis 5 mg twice daily and digoxin 125 mcg once daily for rate control. Serum digoxin levels moniotred by [employer]. Home HRs average high 50s - low 60s, home BP within goal. #HLD: Continue rosuvastatin 20 mg once daily and omega-3/fatty acids 360-1200 mg capsule once daily. #History of left cornea replacement: Patient with history of herpetic keratitis with subsequent cornea transplant. He has since suffered from numerous bouts of inflammation despite chronic antiviral therapy and corticosteroid treatment. Follows with Dr. An who suspects the cornea is at high risk for rejection. Per note review, his plan is to pursue palliative treatment of the left eye with goal of maintaining the health of the right eye. Continue to follow with Dr. An per his reccomendations. All questions answered to the patient's satisfaction. Patient demonstrates understanding of diagnosis and treatments discussed. Follow-up at next scheduled appointment, sooner should any questions/concerns arise. Case discussed with collaborating physician Monica Stanley who has reviewed the assessment/plan. Chart, medications, labs, and vital signs reviewed. Dictation completed with the use of [employer] voice recognition software, prone to medical misidentifications and grammatical errors. All errors are unintentional. Although the practitioner does try to identify and correct errors, some may be present. Please do not hesitate to contact the practitioner for clarification. 10/13/2024 Pulmonary hypertension (ICD-10 - I27.20) Ketan is a 64-year-old male with a PMH of COPD, pulmonary HTN, A-fib, diastolic heart failure presents for routine follow-up #Heart failure: Weighing himself regularly with instructions to contact cardiology for any 3+lb weight gain. Saw Dr. Enriquez. 09/30/2024 at which time most recent echo revealed right heart enlargement in flail tricuspid leaflet with significant regurgitation. Per note review plan is to proceed symptomatic management including as needed diuresis. Continue spironolactone 25 mg twice daily, bumetanide 1 mg twice daily, and Farxiga 10mg once daily. #COPD/pulmonary HTN: Follows with Dr. Lang. Patient currently on 4 L supplemental O2 at baseline. Continue sildenafil 10 mg 3 times daily and Anoro Ellipta inhaler once daily. #A-fib: Currently, taking Eliquis 5 mg twice daily and digoxin 125 mcg once daily for rate control. Serum digoxin levels moniotred by [employer]. Home HRs average high 50s - low 60s, home BP within goal. #HLD: Continue rosuvastatin 20 mg once daily and omega-3/fatty acids 360-1200 mg capsule once daily. #History of left cornea replacement: Patient with history of herpetic keratitis with subsequent cornea transplant. He has since suffered from numerous bouts of inflammation despite chronic antiviral therapy and corticosteroid treatment. Follows with Dr. An who suspects the cornea is at high risk for rejection. Per note review, his plan is to pursue palliative treatment of the left eye with goal of maintaining the health of the right eye. Continue to follow with Dr. An per his reccomendations. All questions answered to the patient's satisfaction. Patient demonstrates understanding of diagnosis and treatments discussed. Follow-up at next scheduled appointment, sooner should any questions/concerns arise. Case discussed with collaborating physician Monica Stanley who has reviewed the assessment/plan. Chart, medications, labs, and vital signs reviewed. Dictation completed with the use of [employer] voice recognition software, prone to medical misidentifications [...] low 60s, home BP 108-128/65-85. Records from [place] requested to evaluate serum digoxin level. #HLD: [...] He is encouraged to follow-up with his python developer Dr. Hever An for continued evaluation. All questions answered to the patient's satisfaction. Patient demonstrates understanding of diagnosis and treatments discussed. Follow-up at next scheduled appointment, sooner should any questions/concerns arise. Case discussed with collaborating physician Monica Stanley who has reviewed the assessment/plan. Chart, medications, labs, and vital signs reviewed. Dictation completed with the use of [employer] voice recognition software, prone to medical misidentifications [...] 04/21/2024 - 04/29/2024. Patient initially presented to [facility] ED 04/21/2024 at the recommendation of his pancake professional for evaluation of worsening shortness of breath [...] daily. Follows with Dr. Enriquez out of [place], seen in office yesterday. #COPD/pulmonary HTN: Patient [...] place of metoprolol. Saw cardiology yesterday with [facility] - no labs were ordered. Serum [...] reviewed. Dictation completed with the use of Dragon voice recognition software, prone to medical misidentifications [...] today. #CHF/A-fib: Follows with Dr. Enriquez with [facility]. Most recent visit 11/2023 during which [...] needed for shortness of breath. Follows with pancake professional Dr. Lang with [facility]. Last seen with Dr. Lang late [...] for home health services. Referral sent to [facility] with goal of setting this up for the patient. All questions answered to the patient's satisfaction. Patient demonstrates understanding of diagnosis and treatments discussed. Follow-up in 3 months, sooner should any questions/concerns arise. Case discussed with collaborating physician Monica Stanley who has reviewed the assessment/plan. Chart, medications, labs, and vital signs reviewed. Dictation completed with the use of [employer] voice recognition software, prone to medical misidentifications [...] today. #CHF/A-fib: Follows with Dr. Enriquez with [facility]. Most recent visit 11/2023 during which [...] needed for shortness of breath. Follows with pancake professional Dr. Lang with [facility]. Last seen with Dr. Lang late [...] for home health services. Referral sent to [facility] with goal of setting this up for the patient. All questions answered to the patient's satisfaction. Patient demonstrates understanding of diagnosis and treatments discussed. Follow-up in 3 months, sooner should any questions/concerns arise. Case discussed with collaborating physician Monica Stanley who has reviewed the assessment/plan. Chart, medications, labs, and vital signs reviewed. Dictation completed with the use of [employer] voice recognition software, prone to medical misidentifications [...] low 60s, home BP 108-128/65-85. Records from [place] requested to evaluate serum digoxin level. #HLD: [...] He is encouraged to follow-up with his python developer Dr. Hever An for continued evaluation. All questions answered to the patient's satisfaction. Patient demonstrates understanding of diagnosis and treatments discussed. Follow-up at next scheduled appointment, sooner should any questions/concerns arise. Case discussed with collaborating physician Monica Stanley who has reviewed the assessment/plan. Chart, medications, labs, and vital signs reviewed. Dictation completed with the use of [employer] voice recognition software, prone to medical misidentifications [...] 04/21/2024 - 04/29/2024. Patient initially presented to [facility] ED 04/21/2024 at the recommendation of his pancake professional for evaluation of worsening shortness of breath [...] daily. Follows with Dr. Enriquez out of [place], seen in office yesterday. #COPD/pulmonary HTN: Patient [...] place of metoprolol. Saw cardiology yesterday with [facility] - no labs were ordered. Serum [...] reviewed. Dictation completed with the use of [employer] voice recognition software, prone to medical misidentifications and grammatical errors. All errors are unintentional. Although the practitioner does try to identify and correct errors, some may be present. Please do not hesitate to contact the practitioner for clarification. 10/13/2024 Persistent atrial fibrillation (ICD-10 - I48.19) Ketan is a 64-year-old male with a PMH of COPD, pulmonary HTN, A-fib, diastolic heart failure presents for routine follow-up #Heart failure: Weighing himself regularly with instructions to contact cardiology for any 3+lb weight gain. Saw Dr. Enriquez. 09/30/2024 at which time most recent echo revealed right heart enlargement in flail tricuspid leaflet with significant regurgitation. Per note review plan is to proceed symptomatic management including as needed diuresis. Continue spironolactone 25 mg twice daily, bumetanide 1 mg twice daily, and Farxiga 10mg once daily. #COPD/pulmonary HTN: Follows with Dr. Lang. Patient currently on 4 L supplemental O2 at baseline. Continue sildenafil 10 mg 3 times daily and Anoro Ellipta inhaler once daily. #A-fib: Currently, taking Eliquis 5 mg twice daily and digoxin 125 mcg once daily for rate control. Serum digoxin levels moniotred by [facility]. Home HRs average high 50s - low 60s, home BP within goal. #HLD: Continue rosuvastatin 20 mg once daily and omega-3/fatty acids 360-1200 mg capsule once daily. #History of left cornea replacement: Patient with history of herpetic keratitis with subsequent cornea transplant. He has since suffered from numerous bouts of inflammation despite chronic antiviral therapy and corticosteroid treatment. Follows with Dr. An who suspects the cornea is at high risk for rejection. Per note review, his plan is to pursue palliative treatment of the left eye with goal of maintaining the health of the right eye. Continue to follow with Dr. An per his reccomendations. All questions answered to the patient's satisfaction. Patient demonstrates understanding of diagnosis and treatments discussed. Follow-up at next scheduled appointment, sooner should any questions/concerns arise. Case discussed with collaborating physician Monica Stanley who has reviewed the assessment/plan. Chart, medications, labs, and vital signs reviewed. Dictation completed with the use of [employer] voice recognition software, prone to medical misidentifications [...] 04/21/2024 - 04/29/2024. Patient initially presented to [facility] ED 04/21/2024 at the recommendation of his pancake professional for evaluation of worsening shortness of breath [...] daily. Follows with Dr. Enriquez out of [place], seen in office yesterday. #COPD/pulmonary HTN: Patient [...] place of metoprolol. Saw cardiology yesterday with [facility] - no labs were ordered. Serum [...] reviewed. Dictation completed with the use of [employer] voice recognition software, prone to medical misidentifications [...] low 60s, home BP 108-128/65-85. Records from [place] requested to evaluate serum digoxin level. #HLD: [...] He is encouraged to follow-up with his python developer Dr. Hever An for continued evaluation. All questions answered to the patient's satisfaction. Patient demonstrates understanding of diagnosis and treatments discussed. Follow-up at next scheduled appointment, sooner should any questions/concerns arise. Case discussed with collaborating physician Monica Stanley who has reviewed the assessment/plan. Chart, medications, labs, and vital signs reviewed. Dictation completed with the use of [employer] voice recognition software, prone to medical misidentifications and grammatical errors. All errors are unintentional. Although the practitioner does try to identify and correct errors, some may be present. Please do not hesitate to contact the practitioner for clarification. 10/13/2024 Encounter for examination of blood pressure without abnormal findings (ICD-10 - Z01.30) Ketan is a 64-year-old male with a PMH of COPD, pulmonary HTN, A-fib, diastolic heart failure presents for routine follow-up #Heart failure: Weighing himself regularly with instructions to contact cardiology for any 3+lb weight gain. Saw Dr. Enriquez. 09/30/2024 at which time most recent echo revealed right heart enlargement in flail tricuspid leaflet with significant regurgitation. Per note review plan is to proceed symptomatic management including as needed diuresis. Continue spironolactone 25 mg twice daily, bumetanide 1 mg twice daily, and Farxiga 10mg once daily. #COPD/pulmonary HTN: Follows with Dr. Lang. Patient currently on 4 L supplemental O2 at baseline. Continue sildenafil 10 mg 3 times daily and Anoro Ellipta inhaler once daily. #A-fib: Currently, taking Eliquis 5 mg twice daily and digoxin 125 mcg once daily for rate control. Serum digoxin levels moniotred by [facility]. Home HRs average high 50s - low 60s, home BP within goal. #HLD: Continue rosuvastatin 20 mg once daily and omega-3/fatty acids 360-1200 mg capsule once daily. #History of left cornea replacement: Patient with history of herpetic keratitis with subsequent cornea transplant. He has since suffered from numerous bouts of inflammation despite chronic antiviral therapy and corticosteroid treatment. Follows with Dr. An who suspects the cornea is at high risk for rejection. Per note review, his plan is to pursue palliative treatment of the left eye with goal of maintaining the health of the right eye. Continue to follow with Dr. An per his reccomendations. All questions answered to the patient's satisfaction. Patient demonstrates understanding of diagnosis and treatments discussed. Follow-up at next scheduled appointment, sooner should any questions/concerns arise. Case discussed with collaborating physician Monica Stanley who has reviewed the assessment/plan. Chart, medications, labs, and vital signs reviewed. Dictation completed with the use of [employer] voice recognition software, prone to medical misidentifications [...] today. #CHF/A-fib: Follows with Dr. Enriquez with [facility]. Most recent visit 11/2023 during which [...] needed for shortness of breath. Follows with pancake professional Dr. Lang with [facility]. Last seen with Dr. Lang late [...] for home health services. Referral sent to [facility] with goal of setting this up for the patient. All questions answered to the patient's satisfaction. Patient demonstrates understanding of diagnosis and treatments discussed. Follow-up in 3 months, sooner should any questions/concerns arise. Case discussed with collaborating physician Monica Stanley who has reviewed the assessment/plan. Chart, medications, labs, and vital signs reviewed. Dictation completed with the use of [employer] voice recognition software, prone to medical misidentifications [...] today. #CHF/A-fib: Follows with Dr. Enriquez with [facility]. Most recent visit 11/2023 during which [...] needed for shortness of breath. Follows with pancake professional Dr. Lang with [facility]. Last seen with Dr. Lang late [...] home health services. Referral sent to [facility] with goal of setting this up for the patient. All questions answered to the patient's satisfaction. Patient demonstrates understanding of diagnosis and treatments discussed. Follow-up in 3 months, sooner should any questions/concerns arise. Case discussed with collaborating physician Monica Stanley who has reviewed the assessment/plan. Chart, medications, labs, and vital signs reviewed. Dictation completed with the use of [employer] voice recognition software, prone to medical misidentifications [...] 04/21/2024 - 04/29/2024. Patient initially presented to [facility] ED 04/21/2024 at the recommendation of his pancake professional for evaluation of worsening shortness of breath [...] daily. Follows with Dr. Enriquez out of [place], seen in office yesterday. #COPD/pulmonary HTN: Patient [...] place of metoprolol. Saw cardiology yesterday with [facility] - no labs were ordered. Serum digoxin level ordered for continued evaluation. #HLD: Continue rosuvastatin 20 mg once daily and omega-3/fatty acids 360-1200 mg capsule once daily. All questions answered to the patient's satisfaction. Patient demonstrates understanding of diagnosis and treatments discussed. Follow-up at next scheduled appointment, sooner should any questions/concerns arise. Case discussed with collaborating physician Mnoica Stanley who has reviewed the assessment/plan. Chart, medications, labs, and vital signs reviewed. Dictation completed with the use of [employer] voice recognition software, prone to medical misidentifications [...] low 60s, home BP 108-128/65-85. Records from [place] requested to evaluate serum digoxin level. #HLD: [...] He is encouraged to follow-up with his python developer Dr. Hever An for continued evaluation. All questions answered to the patient's satisfaction. Patient demonstrates understanding of diagnosis and treatments discussed. Follow-up at next scheduled appointment, sooner should any questions/concerns arise. Case discussed with collaborating physician Monica Stanley who has reviewed the assessment/plan. Chart, medications, labs, and vital signs reviewed. Dictation completed with the use of [employer] voice recognition software, prone to medical misidentifications and grammatical errors. All errors are unintentional. Although the practitioner does try to identify and correct errors, some may be present. Please do not hesitate to contact the practitioner for clarification. 10/13/2024 Therapeutic drug monitoring (ICD-10 - Z51.81) Ketan is a 64-year-old male with a PMH of COPD, pulmonary HTN, A-fib, diastolic heart failure presents for routine follow-up #Heart failure: Weighing himself regularly with instructions to contact cardiology for any 3+lb weight gain. Saw Dr. Enriquez. 09/30/2024 at which time most recent echo revealed right heart enlargement in flail tricuspid leaflet with significant regurgitation. Per note review plan is to proceed symptomatic management including as needed diuresis. Continue spironolactone 25 mg twice daily, bumetanide 1 mg twice daily, and Farxiga 10mg once daily. #COPD/pulmonary HTN: Follows with Dr. Lang. Patient currently on 4 L supplemental O2 at baseline. Continue sildenafil 10 mg 3 times daily and Anoro Ellipta inhaler once daily. #A-fib: Currently, taking Eliquis 5 mg twice daily and digoxin 125 mcg once daily for rate control. Serum digoxin levels moniotred by [employer]. Home HRs average high 50s - low 60s, home BP within goal. #HLD: Continue rosuvastatin 20 mg once daily and omega-3/fatty acids 360-1200 mg capsule once daily. #History of left cornea replacement: Patient with history of herpetic keratitis with subsequent cornea transplant. He has since suffered from numerous bouts of inflammation despite chronic antiviral therapy and corticosteroid treatment. Follows with Dr. An who suspects the cornea is at high risk for rejection. Per note review, his plan is to pursue palliative treatment of the left eye with goal of maintaining the health of the right eye. Continue to follow with Dr. An per his reccomendations. All questions answered to the patient's satisfaction. Patient demonstrates understanding of diagnosis and treatments discussed. Follow-up at next scheduled appointment, sooner should any questions/concerns arise. Case discussed with collaborating physician Monica Stanley who has reviewed the assessment/plan. Chart, medications, labs, and vital signs reviewed. Dictation completed with the use of [employer] voice recognition software, prone to medical misidentifications and grammatical errors. All errors are unintentional. Although the practitioner does try to identify and correct errors, some may be present. Please do not hesitate to contact the practitioner for clarification. 10/13/2024 Acute on chronic diastolic congestive heart failure (ICD-10 - I50.33) Ketan is a 64-year-old male with a PMH of COPD, pulmonary HTN, A-fib, diastolic heart failure presents for routine follow-up #Heart failure: Weighing himself regularly with instructions to contact cardiology for any 3+lb weight gain. Saw Dr. Enriquez. 09/30/2024 at which time most recent echo revealed right heart enlargement in flail tricuspid leaflet with significant regurgitation. Per note review plan is to proceed symptomatic management including as needed diuresis. Continue spironolactone 25 mg twice daily, bumetanide 1 mg twice daily, and Farxiga 10mg once daily. #COPD/pulmonary HTN: Follows with Dr. Lang. Patient currently on 4 L supplemental O2 at baseline. Continue sildenafil 10 mg 3 times daily and Anoro Ellipta inhaler once daily. #A-fib: Currently, taking Eliquis 5 mg twice daily and digoxin 125 mcg once daily for rate control. Serum digoxin levels moniotred by [employer]. Home HRs average high 50s - low 60s, home BP within goal. #HLD: Continue rosuvastatin 20 mg once daily and omega-3/fatty acids 360-1200 mg capsule once daily. #History of left cornea replacement: Patient with history of herpetic keratitis with subsequent cornea transplant. He has since suffered from numerous bouts of inflammation despite chronic antiviral therapy and corticosteroid treatment. Follows with Dr. An who suspects the cornea is at high risk for rejection. Per note review, his plan is to pursue palliative treatment of the left eye with goal of maintaining the health of the right eye. Continue to follow with Dr. An per his reccomendations. All questions answered to the patient's satisfaction. Patient demonstrates understanding of diagnosis and treatments discussed. Follow-up at next scheduled appointment, sooner should any questions/concerns arise. Case discussed with collaborating physician Monica Stanley who has reviewed the assessment/plan. Chart, medications, labs, and vital signs reviewed. Dictation completed with the use of [employer] voice recognition software, prone to medical misidentifications [...] 04/21/2024 - 04/29/2024. Patient initially presented to [facility] ED 04/21/2024 at the recommendation of his pancake professional for evaluation of worsening shortness of breath [...] daily. Follows with Dr. Enriquez out of [place], seen in office yesterday. #COPD/pulmonary HTN: Patient [...] place of metoprolol. Saw cardiology yesterday with [facility] - no labs were ordered. Serum [...] reviewed. Dictation completed with the use of [employer] voice recognition software, prone to medical misidentifications [...] low 60s, home BP 108-128/65-85. Records from [place] requested to evaluate serum digoxin level. #HLD: [...] He is encouraged to follow-up with his python developer Dr. Hever An for continued evaluation. All questions answered to the patient's satisfaction. Patient demonstrates understanding of diagnosis and treatments discussed. Follow-up at next scheduled appointment, sooner should any questions/concerns arise. Case discussed with collaborating physician Monica Stanley who has reviewed the assessment/plan. Chart, medications, labs, and vital signs reviewed. Dictation completed with the use of [employer] voice recognition software, prone to medical misidentifications [...] low 60s, home BP 108-128/65-85. Records from [place] requested to evaluate serum digoxin level. #HLD: [...] He is encouraged to follow-up with his python developer Dr. Hever An for continued evaluation. All questions answered to the patient's satisfaction. Patient demonstrates understanding of diagnosis and treatments discussed. Follow-up at next scheduled appointment, sooner should any questions/concerns arise. Case discussed with collaborating physician Monica Stanley who has reviewed the assessment/plan. Chart, medications, labs, and vital signs reviewed. Dictation completed with the use of [employer] voice recognition software, prone to medical misidentifications and grammatical errors. All errors are unintentional. Although the practitioner does try to identify and correct errors, some may be present. Please do not hesitate to contact the practitioner for clarification. 10/13/2024 Other hyperlipidemia (ICD-10 - E78.49) Ketan is a 64-year-old male with a PMH of COPD, pulmonary HTN, A-fib, diastolic heart failure presents for routine follow-up #Heart failure: Weighing himself regularly with instructions to contact cardiology for any 3+lb weight gain. Saw Dr. Enriquez. 09/30/2024 at which time most recent echo revealed right heart enlargement in flail tricuspid leaflet with significant regurgitation. Per note review plan is to proceed symptomatic management including as needed diuresis. Continue spironolactone 25 mg twice daily, bumetanide 1 mg twice daily, and Farxiga 10mg once daily. #COPD/pulmonary HTN: Follows with Dr. Lang. Patient currently on 4 L supplemental O2 at baseline. Continue sildenafil 10 mg 3 times daily and Anoro Ellipta inhaler once daily. #A-fib: Currently, taking Eliquis 5 mg twice daily and digoxin 125 mcg once daily for rate control. Serum digoxin levels moniotred by [employer]. Home HRs average high 50s - low 60s, home BP within goal. #HLD: Continue rosuvastatin 20 mg once daily and omega-3/fatty acids 360-1200 mg capsule once daily. #History of left cornea replacement: Patient with history of herpetic keratitis with subsequent cornea transplant. He has since suffered from numerous bouts of inflammation despite chronic antiviral therapy and corticosteroid treatment. Follows with Dr. An who suspects the cornea is at high risk for rejection. Per note review, his plan is to pursue palliative treatment of the left eye with goal of maintaining the health of the right eye. Continue to follow with Dr. An per his reccomendations. All questions answered to the patient's satisfaction. Patient demonstrates understanding of diagnosis and treatments discussed. Follow-up at next scheduled appointment, sooner should any questions/concerns arise. Case discussed with collaborating physician Monica Stanley who has reviewed the assessment/plan. Chart, medications, labs, and vital signs reviewed. Dictation completed with the use of [employer] voice recognition software, prone to medical misidentifications and grammatical errors. All errors are unintentional. Although the practitioner does try to identify and correct errors, some may be present. Please do not hesitate to contact the practitioner for clarification. 10/13/2024 Cornea transplant recipient (ICD-10 - Z94.7) Ketan is a 64-year-old male with a PMH of COPD, pulmonary HTN, A-fib, diastolic heart failure presents for routine follow-up #Heart failure: Weighing himself regularly with instructions to contact cardiology for any 3+lb weight gain. Saw Dr. Enriquez. 09/30/2024 at which time most recent echo revealed right heart enlargement in flail tricuspid leaflet with significant regurgitation. Per note review plan is to proceed symptomatic management including as needed diuresis. Continue spironolactone 25 mg twice daily, bumetanide 1 mg twice daily, and Farxiga 10mg once daily. #COPD/pulmonary HTN: Follows with Dr. Lang. Patient currently on 4 L supplemental O2 at baseline. Continue sildenafil 10 mg 3 times daily and Anoro Ellipta inhaler once daily. #A-fib: Currently, taking Eliquis 5 mg twice daily and digoxin 125 mcg once daily for rate control. Serum digoxin levels moniotred by [employer]. Home HRs average high 50s - low 60s, home BP within goal. #HLD: Continue rosuvastatin 20 mg once daily and omega-3/fatty acids 360-1200 mg capsule once daily. #History of left cornea replacement: Patient with history of herpetic keratitis with subsequent cornea transplant. He has since suffered from numerous bouts of inflammation despite chronic antiviral therapy and corticosteroid treatment. Follows with Dr. nA who suspects the cornea is at high risk for rejection. Per note review, his plan is to pursue palliative treatment of the left eye with goal of maintaining the health of the right eye. Continue to follow with Dr. An per his reccomendations. All questions answered to the patient's satisfaction. Patient demonstrates understanding of diagnosis and treatments discussed. Follow-up at next scheduled appointment, sooner should any questions/concerns arise. Case discussed with collaborating physician Monica Stanley who has reviewed the assessment/plan. Chart, medications, labs, and vital signs reviewed. Dictation completed with the use of [employer] voice recognition software, prone to medical misidentifications [...] 05/08/2024 Next Appt Details Provider Name:ALEX Arango, 02/16/2025 01:00:00 PM, [address] [facility] [address], [place], [address], Insurance Providers Payer Name Payer Address Payer Phone Subscriber Number Group Number Insured Name Patient Relationship to Insured Coverage Start Date Coverage End Date [employer]age [address] [place] [address] [id number] Ketan Cho Self - patient [...]
--- OUTSIDE RECORDS SUMMARY | 2024-11-27 19:51 | XMS_ITS | Clinical Summary ---
Author Organization [facility] Address [address] [place] [address] Care Team Providers Care Kier Boiler Name Role Phone Unavailable Primary Care Provider Unavailabl e Social History Tobacco Use Types Packs/Day Years Used Date Smoking Tobacco: Never Assessed Sex and Gender Information Value Date Recorded Sex Assigned at Not on file Gender Identity Not on file Sexual Orientation Not on file Plan of Treatment Not on file
--- NOTE | 2024-11-27 20:29 | PM.IMHP ---
History of Present Illness Date of Service: 11/27/24 Chief Complaint: SOB 64-year-old male with a past medical history of HTN, HLD, mitral stenosis, CHF, COPD, chronic respiratory failure on home oxygen/BiPAP at night, restrictive lung disease, AFib, diabetes, [place]; pulmonary hypertension, morbid obesity presented to the hospital today with a chief complaint of shortness of breath. Patient reports over the past couple days he has been having increased shortness of breath. Has been using his home BiPAP more frequently than usual. Reports having cough. Denies any fevers. Denies any sick contacts. Patient denied any chest pain or palpitations. Review of all other systems negative except mentioned above ER course: Per ER physician, patient on presentation noted to be short of breath, diminished lung sounds; concern for acute on chronic respiratory failure. Blood gas appears compensated. Patient was placed on BiPAP and given nebulizations and steroids. Patient respiratory status improved. Speaks in full sentences. Continued on BiPAP as patient uses BiPAP at nighttime. Chest x-ray showed no acute cardiopulmonary process but noted to have findings suspected scarring-per ER physician x-rays look similar to the prior x-rays. CT chest ordered. [facility] Medical History Pulmonary hypertension Pneumonia Chronic diastolic (congestive) heart failure Morbid obesity due to excess calories Mitral stenosis SOB (shortness of breath) Cor pulmonale Dyspnea Oxygen dependent Chronic hypoxemic respiratory failure Sleep apnea COPD (chronic obstructive pulmonary disease) Hyperlipidemia Atrial fibrillation Hypertension, essential Current use of anticoagulant therapy Family History Father No problems noted. Mother No problems noted. Brother No problems noted. Sister Mental health disorder Sister No problems noted. Sister No problems noted. Sister No problems noted. Son No problems noted. Daughter No problems noted. Surgical History History of carpal tunnel surgery History of colonoscopy History of thumb surgery History of mitral valve repair History of umbilical hernia History of tonsillectomy History of vasectomy Social History Household Members: None Housing: Apartment Do you presently have visiting nurse or other home services: Yes (home care twice a week) Alcohol intake: former Patient Tobacco Use Status: Former Tobacco user Tobacco use type: Cigarette Years Smoked: 25 Smoked in Last 30 Days: No e-Cigarette/Vaping Use: Never Used Second Hand Smoke Exposure: Yes (cigar smoke) Use of substances other than those prescribed or required for medical reasons: No Substance Use Type: Marijuana Advance Directives: Yes Advance Directives on File: Yes Advance Directives Date on File: 07/12/20 Do you have a plan to hurt others: No Plan service: No Current occupational status: disabled Cognitive needs: No Hearing needs: No Vision needs: Yes Meds Allergies Allergy/AdvReac Type Severity Reaction Status Date / Time ciprofloxacin (From CIPRO) Allergy Intermediate DIFFICULTY Verified 11/27/24 18:18 BREATHING vancomycin (VANCOMYCIN) Allergy Intermediate RASH, rash Verified 11/27/24 18:18 over whole body Active Medications: Current Medications Acetaminophen (Acetaminophen 325 Mg Tablet) 650 mg PO Q6H PRN PRN Reason: Pain, Mild 1-3,fever,headache Albuterol/Ipratropium (Albuterol/Iprat 2.5/0.5mg 3 Ml Ampul.Neb) 3 ml INHALE RQ4H WHILE AWAKE [facility] Apixaban (Apixaban 5 Mg Tablet) 5 mg PO BID [facility] Bumetanide (Bumetanide 1 Mg Tablet) 1 mg PO BID@0800,1700 [facility]; Protocol Calcium Carbonate (Calcium Carbonate 750 Mg Tab.Chew) 750 mg PO Q4H PRN PRN Reason: Heartburn Digoxin (Digoxin 0.125 Mg Tablet) 0.125 mg PO DAILY [facility]; Protocol Enoxaparin Sodium (Enoxaparin Sodium 40 Mg/0.4 Ml Syringe) 40 mg SUBCUT Q24H [facility] Hydromorphone HCl (Hydromorphone Hcl 0.5 Mg/0.5 Ml Syringe) 0.5 mg IVPUSH Q4H PRN; Protocol PRN Reason: Pain, Severe (Pain Scale 7-10) Magnesium Sulfate (Magnesium Sulfate/H2o) 2 gm in 50 mls @ 150 mls/hr IV ONCE ONE Stop: 11/27/24 20:32 Azithromycin 500 mg/ Sodium (Chloride) 250 mls @ 125 mls/hr IV Q24H [facility] Magnesium Hydroxide (Milk Of Magnesia 30 Ml Oral.Susp) 30 ml PO DAILY PRN PRN Reason: Constipation Melatonin (Melatonin 3 Mg Tablet) 6 mg PO BEDTIME PRN PRN Reason: Insomnia Methylprednisolone Sodium Succinate (Methylprednisolone Sod Succ 40 Mg/Ml Vial) 40 mg IVPUSH Q6H [facility] Sodium Chloride (0.9 % Sodium Chloride Flush 3 Ml Syringe) 3 ml IVFLUSH QSHIFT [facility] Spironolactone (Spironolactone 25 Mg Tablet) 25 mg PO DAILY [facility]; Protocol Home Medications ?Medication ?Instructions ?Recorded ?Confirmed ?Last Taken ?Type aspirin 81 mg tablet,delayed 81 mg PO DAILY 03/12/20 09/30/24 04/21/24 History release (Adult Low Dose Aspirin) cholecalciferol (vitamin D3) 50 50 mcg PO DAILY 03/12/20 09/30/24 04/21/24 History mcg (2,000 unit) capsule omega-3 fatty acids-fish oil 360 1 cap PO DAILY 03/12/20 09/30/24 04/21/24 History mg-1,200 mg capsule (Fish Oil) multivitamin 1 tab PO DAILY 07/12/20 09/30/24 04/21/24 History Oxygen Home Use 06/14/22 09/30/24 Unknown History vitamin B complex 1 tab PO DAILY 10/31/22 09/30/24 04/21/24 History calcium carbonate 500 mg PO DAILY 01/01/23 09/30/24 04/21/24 History coQ10 (ubiquinol) 100 mg capsule 100 mg PO DAILY 04/21/24 09/30/24 04/21/24 History (Qunol Reyes CoQ10) Physical Exam Vital Signs and Narrative: Vital Signs: Last Vital Signs Temp 97.4 F 11/27/24 18:19 Pulse 78 11/27/24 18:19 Resp 29 H 11/27/24 18:29 BP 109/81 11/27/24 18:19 Pulse Ox 97 11/27/24 18:24 O2 Del Method BiPAP 11/27/24 18:24 BMI result Body Mass Index 38.5 Gen: Appears be in no acute distress HEENT: NCAT, Moist mucosa. Pulmonary: Diminished breath sounds CVS: Normal S1-S2 Abdomen: BS+, Soft, Nontender Extremities: Warm well perfused Neuro: Alert and awake. Results Labs 11/27/24 18:55 11/27/24 18:55 Labs: Laboratory Results - last 24 hr 11/27/24 11/27/24 11/27/24 15:54 15:54 18:55 MCV 92.1 MCH 32.1 MCHC 34.9 RDW 15.8 Plt Count 146 L D MPV 9.8 Immature Gran % (Auto) 1.8 H Neut % (Auto) 67.1 Lymph % (Auto) 20.5 [place] % (Auto) 9.2 Eos % (Auto) 0.5 Baso % (Auto) 0.9 Lymph # (Auto) 1.7 [place] # (Auto) 0.8 Eos # (Auto) 0.0 Baso # (Auto) 0.1 Abs Immat Gran (auto) 0.15 H Absolute Neuts (auto) 5.5 Absolute Nucleated RBC 0.000 Nucleated RBC % (auto) 0.0 Hold Purple Top SEE NOTE SEE NOTE PT INR VBG pH VBG pCO2 VBG pO2 VBG HCO3 VBG O2 Saturation VBG Base Excess Anion Gap 17 Estim Creat Clear Calc 147.8 Estimated GFR > 60 Random Glucose 90 Lactic Acid Calcium 9.2 Total Bilirubin 1.3 H AST 44 H ALT 55 H Alkaline Phosphatase 105 Total Protein 6.1 L Albumin 4.0 Digoxin COVID-19 (KENJI) COVID-19 Clin Com Influenza Type A (SAULO) Influenza Type B (SAULO) Influenza A & B Note 11/27/24 11/27/24 18:56 19:02 MCV MCH MCHC RDW Plt Count MPV Immature Gran % (Auto) Neut % (Auto) Lymph % (Auto) [place] % (Auto) Eos % (Auto) Baso % (Auto) Lymph # (Auto) [place] # (Auto) Eos # (Auto) Baso # (Auto) Abs Immat Gran (auto) Absolute Neuts (auto) Absolute Nucleated RBC Nucleated RBC % (auto) Hold Purple Top PT 14.8 H D INR 1.3 H VBG pH 7.51 H VBG pCO2 27 VBG pO2 169 VBG HCO3 22 VBG O2 Saturation 99.0 VBG Base Excess 0.8 Anion Gap Estim Creat Clear Calc Estimated GFR Random Glucose Lactic Acid 2.1 H* Calcium Total Bilirubin AST ALT Alkaline Phosphatase Total Protein Albumin Digoxin < 0.2 L COVID-19 (KENJI) Negative COVID-19 Clin Com See Note Influenza Type A (SAULO) Negative Influenza Type B (SAULO) Negative Influenza A & B Note See Note Assessment and Plan (1) Acute exacerbation of chronic obstructive pulmonary disease: Status: Acute Plan 64-year-old male with a past medical history of HTN, HLD, mitral stenosis, CHF, COPD, chronic respiratory failure on home oxygen/BiPAP at night, restrictive lung disease, AFib, diabetes, [place]; pulmonary hypertension, morbid obesity presented to the hospital today with a chief complaint of shortness of breath. Acute on chronic respiratory failure: Acute COPD exacerbation: Patient uses oxygen during the daytime and BiPAP at nighttime. Respiratory status improving. Not in distress. Continue nebulizations standing and p.r.n. Continue Solu-Medrol Azithromycin BiPAP at nighttime Supplemental oxygen with a goal oxygen saturation of 88-93% Pending pulse oximetry when ready for discharge Pulmonology consult ? Pulmonary lesion: As noted on the chest x-ray. CT chest pending. Based on the results will defer to the day team to consider oncology consult in a.m.. Chronic CHF: Continue home Bumex, Aldactone. AFib: Rate controlled. Continue home Eliquis Diabetes: Insulin sliding scale Hypertension: Continue home medications once med rec is completed DVT prophylaxis: Patient on Eliquis Code status: Full code Quality Stroke Does the patient have a stroke diagnosis?: No VTE Prior VTE?: No VTE Risk Level:: Medical - moderate - high VTE Device Contraindication: Treatment Not Indicated VTE Drug Contraindication: N/A - Med Ordered
[2024-11-27] MEDS: Magnesium Sulfate/H2O 2 GM/50 ML PIGGYBACK IV (20:44)
--- NOTE | 2024-11-27 20:44 | PHA.MEDREC ---
Addendum entered by Clarita Manrique RPh 11/27/24 20:53: [facility] reviewed Original Note: Pharmacy Consult ? Medication Reconciliation Pharmacy has completed the medication reconciliation. Spoke with pt and he has a list on hand that he utilized to confirm med rec. Pt confirmed his Eliquis 5mg BID and confirmed he took it this morning.
[2024-11-27 20:47] LABS: VBG HCO3 23 mmol/L (22-26); VBG O2 % Saturation 99.0 %
[2024-11-27 20:50] LABS: Venous Blood Gas Refer to POC result
[2024-11-27 20:59] LABS: Reflex Lactate? Lactic Acid Added
[2024-11-27 21:11] LABS: Glucose, Whole Blood 90 mg/dL (60-115)
[2024-11-27 21:43] LABS: ~Lactic Acid-LAB USE ONLY 1.4 mmol/L (0.5-2.0)
[2024-11-27 21:44] LABS: Digoxin 0.2 ng/mL (0.8-2.0)
--- NOTE | 2024-11-27 22:13 | PC.NURSE ---
PT trialed off the BIPAP and placed 4L NC, which what he uses at home, manuel starks MD is aware
--- NOTE | 2024-11-27 22:42 | PC.NURSE ---
Attempted to trial pt off Bipap to 4L NC which he is on at home , pt SpO2 dropped to 87%, pt placed back on the BIPAP
[2024-11-28] VITALS (15 sets, daily range): BP systolic 120–163; BP diastolic 76–88; PULSE 53–85; RESP 15–25; TEMP 36.1–36.8; O2SAT 88–94; BMI 34.8
[2024-11-28] MEDS: iohexoL 350 MG/ML 100 ML INFUS..BTL IV (00:12)
[2024-11-28 04:21] LABS: NRBC Abs Auto 0.000 X10*3/uL (0.0-0.012); NRBC Pct Auto 0.0 /100WBC (0.0-0.2); PLT CLUMP 1; SCAN SMEAR FLAG 1
[2024-11-28 04:23] LABS: Hematocrit 54.8 % (42.0-52.0); Hemoglobin 18.6 g/dl (14.0-18.0); Imm Gran Abs Auto 0.09 X10*3/uL (0.00-0.03); Imm Gran Pct Auto 1.6 % (0.0-0.4); Lymphocytes Absolute Auto 0.5 X10*3/uL (1.2-4.9); MANUAL DIFF FLAG SCAN; Mean Corpuscular HGB Conc 33.9 g/dl (31.0-36.0); Mean Corpuscular Hemoglobin 31.3 pg (27.0-33.0); Mean Corpuscular Volume 92.1 fL (80.0-98.0); Red Blood Count 5.95 X10*6/uL (4.60-5.80)
[2024-11-28 04:46] LABS: Alanine Aminotransferase 53 U/L (0-40); Albumin Level 4.3 g/dL (3.5-5.0); Alkaline Phosphatase 106 U/L (39-117); Anion Gap 18 (12-20); Aspartate Amino Transferase 42 U/L (5-37); Blood Urea Nitrogen 23 mg/dL (9-16); Calcium 9.0 mg/dL (8.4-10.2); Carbon Dioxide 20 mmol/L (22-29); Chloride 105 mmol/L (96-108); Creatinine Clr Calc Pharmacy 168.0; Estimated Glomerular Filt Rate > 60; Potassium 3.3 mmol/L (3.3-5.1); Sodium 140 mmol/L (135-145); Total Protein 6.4 g/dL (6.5-8.0)
[2024-11-28 05:12] LABS: Platelet Count 126 X10*3/uL (160-400); White Blood Count 5.7 X10*3/uL (4.8-10.8)
[2024-11-28 07:22] LABS: Glucose, Whole Blood 292 mg/dL (60-115)
[2024-11-28] MEDS: Albuterol/Iprat 2.5/0.5MG 3 ML AMPUL.NEB INHALE ×4 (07:40→19:16)
--- NOTE | 2024-11-28 08:14 | PC.NURSE ---
pt is alert and oriented, skin pink warm and clammy,respirations slightly labored and get increased labored with exertion, ls clear, pt is currently on oxymask on 4L and sating anywhere from 89-92%, pt is reporting right sided chest pain that started few hours ago pain at 4/10,
[2024-11-28] MEDS: 0.9 % Sodium Chloride Flush 3 ML SYRINGE IVFLUSH ×3 (08:32→20:53)
--- NOTE | 2024-11-28 09:13 | PM.CNPUL ---
History of Present Illness History of Present Illness Consult date: 11/28/24 Chief complaint: COPD Narrative: This is an inpatient pulmonary consultation. The patient is a 64-year-old male with a past medical history of HTN, HLD, mitral stenosis, CHF, COPD, chronic respiratory failure on home oxygen/BiPAP at night, restrictive lung disease, AFib, diabetes, [place]; pulmonary hypertension, morbid obesity presented to the hospital today with a chief complaint of shortness of breath. Patient reports over the past couple days he has been having increased shortness of breath. Has been using his home BiPAP more frequently than usual. Chest x-ray, personally by me, showed no acute cardiopulmonary process but noted to have findings suspected scarring-per ER physician x-rays look similar to the prior x-rays. CT chest also ordered and I did personally reviewed demonstrating chronic interstitial lung disease emphysematous changes and also some pulmonary nodules. The patient apparently had a very anxiety provoking situation with his family that likely precipitated his worsening respiratory symptoms. He is hyperventilating in his blood gas also demonstrated evidence of respiratory alkalosis. Review of Systems Constitutional: Constitutional: Denies daytime sleepiness, Denies excessive sweating, Denies fatigue, Denies fever(s), Denies lethargy, Denies malaise, Denies night sweats, Denies snoring and Reports weight loss Eyes: Eyes: Denies blurry vision and Denies itchy eyes ENT: Denies nasal congestion, Denies post nasal drip, Denies sinus pain, Denies sinus pressure and Denies other ( Thrush) Cardiovascular: Cardiovascular: Denies chest pain, Reports pedal edema, Denies dyspnea, Reports dyspnea on exertion, Reports orthopnea and Reports paroxysmal nocturnal dyspnea Respiratory: Respiratory: Reports cough, Denies hemoptysis, Denies excessive phlegm production, Denies dyspnea, Reports dyspnea on exertion, Denies snoring and Denies wheezing Gastrointestinal: Gastrointestinal: Denies abdominal pain and Denies heartburn Musculoskeletal: Musculoskeletal: Denies myalgias, Denies arthralgias and Denies joint swelling Integumentary/Breasts: Skin/Breast: Denies rash Neurologic: Denies memory loss and Denies seizure-like activity Psychiatric: Psychiatric: Reports anxiety and Denies memory loss Endocrine: Endocrine: Denies excessive sweating, Denies fatigue and Denies heat intolerance Hematologic/Lymphatic: Hematologic/Lymphatic: Denies easy bruising Allergic/Immunologic: Allergic/Immunologic: Denies itchy eyes, Denies seasonal rhinorrhea and Denies wheezing PMFSH Past Medical History Medical History (Updated 11/28/24 @ 09:18 by Niels Lang MD) ILD (interstitial lung disease) Pulmonary nodules Pulmonary hypertension Pneumonia Chronic diastolic (congestive) heart failure Morbid obesity due to excess calories Mitral stenosis SOB (shortness of breath) Cor pulmonale Dyspnea Oxygen dependent Chronic hypoxemic respiratory failure Sleep apnea COPD (chronic obstructive pulmonary disease) Hyperlipidemia Atrial fibrillation Hypertension, essential Current use of anticoagulant therapy Family History Family History Father No problems noted. Mother No problems noted. Brother No problems noted. Sister Mental health disorder Sister No problems noted. Sister No problems noted. Sister No problems noted. Son No problems noted. Daughter No problems noted. Surgical History Surgical History History of carpal tunnel surgery History of colonoscopy History of thumb surgery History of mitral valve repair History of umbilical hernia History of tonsillectomy History of vasectomy Social History Social History Household Members: None Housing: House Housing Other:: First floor dual family house Do you presently have visiting nurse or other home services: No Alcohol intake: former Patient Tobacco Use Status: Former Tobacco user Tobacco use type: Cigarette Years Smoked: 25 Smoked in Last 30 Days: No e-Cigarette/Vaping Use: Never Used Second Hand Smoke Exposure: Yes (cigar smoke) Use of substances other than those prescribed or required for medical reasons: No Substance Use Type: Marijuana Have you been hit, kicked, punched, or otherwise hurt by someone within the past year? If so, by whom?: No Do you feel safe in your current relationship?: No Current Relationship Is there a partner from a previous relationship who is making you feel unsafe now?: No Are you made to feel afraid or neglected: No Advance Directives: Yes Advance Directives on File: Yes Advance Directives Date on File: 07/12/20 Do you have a plan to hurt others: No Plan Recently lost weight without trying: Yes Eating poorly because of decreased appetite: Yes Nutrition Risks: Poor intake 0-25% >4 days Poor oral hygiene: No service: No Current occupational status: disabled Cognitive needs: No Hearing needs: No Vision needs: Yes Meds Allergies Allergy/AdvReac Type Severity Reaction Status Date / Time ciprofloxacin (From CIPRO) Allergy Intermediate DIFFICULTY Verified 11/27/24 18:18 BREATHING vancomycin (VANCOMYCIN) Allergy Intermediate RASH, rash Verified 11/27/24 18:18 over whole body Active Medications: Current Medications Acetaminophen (Acetaminophen 325 Mg Tablet) 650 mg PO Q6H PRN PRN Reason: Pain, Mild 1-3,fever,headache Albuterol/Ipratropium (Albuterol/Iprat 2.5/0.5mg 3 Ml Ampul.Neb) 3 ml INHALE RQ4H WHILE AWAKE [facility] Last Admin: 11/28/24 07:40 Dose: 3 ml Apixaban (Apixaban 5 Mg Tablet) 5 mg PO BID [facility] Last Admin: 11/28/24 08:29 Dose: 5 mg Bumetanide (Bumetanide 1 Mg Tablet) 1 mg PO BID@0800,1700 [facility]; Protocol Last Admin: 11/28/24 08:28 Dose: 1 mg Calcium Carbonate (Calcium Carbonate 750 Mg Tab.Chew) 750 mg PO Q4H PRN PRN Reason: Heartburn Dextrose (Dextrose 50 % 25 Gm/50 Ml Syringe) 25 gm IVPUSH Q15M PRN; Protocol PRN Reason: per Hypoglycemia Standing Ord. Digoxin (Digoxin 0.125 Mg Tablet) 0.125 mg PO DAILY [facility]; Protocol Last Admin: 11/28/24 08:29 Dose: 0.125 mg Glucose (Glucose Gel 15 Gm Gel..Gram.) 15 gm PO Q15M PRN; Protocol PRN Reason: per Hypoglycemia Standing Ord. Hydromorphone HCl (Hydromorphone Hcl 0.5 Mg/0.5 Ml Syringe) 0.5 mg IVPUSH Q4H PRN; Protocol PRN Reason: Pain, Severe (Pain Scale 7-10) Azithromycin 500 mg/ Sodium (Chloride) 250 mls @ 125 mls/hr IV Q24H [facility] Last Infusion: 11/28/24 00:18 Dose: Infused Insulin Human Lispro (Insulin Lispro 100 Unit/Ml 3 Ml Vial) 0 unit SUBCUT QIDACHS [facility]; Protocol Last Admin: 11/28/24 07:26 Dose: 6 unit Magnesium Hydroxide (Milk Of Magnesia 30 Ml Oral.Susp) 30 ml PO DAILY PRN PRN Reason: Constipation Melatonin (Melatonin 3 Mg Tablet) 6 mg PO BEDTIME PRN PRN Reason: Insomnia Methylprednisolone Sodium Succinate (Methylprednisolone Sod Succ 40 Mg/Ml Vial) 40 mg IVPUSH Q6H [facility] Last Admin: 11/28/24 08:28 Dose: 40 mg Sodium Chloride (0.9 % Sodium Chloride Flush 3 Ml Syringe) 3 ml IVFLUSH QSHIFT [facility] Last Admin: 11/28/24 08:32 Dose: 3 ml Spironolactone (Spironolactone 25 Mg Tablet) 25 mg PO DAILY [facility]; Protocol Last Admin: 11/28/24 08:29 Dose: 25 mg Home Medications ?Medication ?Instructions ?Recorded ?Confirmed ?Last Taken ?Type aspirin 81 mg tablet,delayed 81 mg PO DAILY 03/12/20 11/27/24 11/27/24 History release (Adult Low Dose Aspirin) cholecalciferol (vitamin D3) 50 50 mcg PO DAILY 03/12/20 11/27/24 11/27/24 History mcg (2,000 unit) capsule omega-3 fatty acids-fish oil 360 1 cap PO DAILY 03/12/20 11/27/24 11/27/24 History mg-1,200 mg capsule (Fish Oil) multivitamin 1 tab PO DAILY 07/12/20 11/27/24 11/27/24 History Oxygen Home Use 06/14/22 09/30/24 Unknown History vitamin B complex 1 tab PO DAILY 10/31/22 11/27/24 11/27/24 History calcium carbonate 500 mg PO DAILY 01/01/23 11/27/24 11/27/24 History coQ10 (ubiquinol) 100 mg capsule 100 mg PO DAILY 04/21/24 11/27/24 11/27/24 History (Qunol Reyes CoQ10) Physical Exam Vital Signs: Vital Signs: Last Vital Signs Temp 97.6 F 11/28/24 05:53 Pulse 85 11/28/24 08:13 Resp 22 H 11/28/24 08:13 BP 142/86 H 11/28/24 08:13 Pulse Ox 90 L 11/28/24 08:13 O2 Del Method Oxymask 11/28/24 08:13 O2 Flow Rate 4 11/28/24 08:13 BMI result Body Mass Index 34.8 Const: General: alert HEENT: General nose exam: Abnormal external nose present and Nasal discharge present Neck: Neck: Yes normal visual inspection, Yes full ROM and Yes no lymphadenopathy Chest: Chest palpation & inspection: normal inspection of the chest Resp: Effort & Inspection: tachypneic Auscultation: diminished lung sounds Cardio: Rate: regular rate Rhythm: abnormal rhythm Heart sounds: S1 normal heart sound present, S2 normal heart sound present and Murmur heart sound present GI: Palpation (GI): Soft to palpation and nontender Auscultation: normal bowel sounds Skin: General skin exam: rashes and/or lesions noted Extrem: General: Yes clubbing and No edema Results Laboratory Findings 11/28/24 03:47 11/28/24 03:47 ABG, PT/INR, D-dimer: PT/INR, D-dimer PT 14.8 SEC (10.9-12.4) H D 11/27/24 18:56 INR 1.3 (0.9-1.1) H 11/27/24 18:56 Abnormal lab findings: Abnormal Labs 11/27/24 11/27/24 11/27/24 18:55 18:56 19:02 RBC Hgb 18.3 H Hct 52.5 H RDW Plt Count 146 L D Immature Gran % (Auto) 1.8 H Neut % (Auto) Lymph % (Auto) [place] % (Auto) Lymph # (Auto) Abs Immat Gran (auto) 0.15 H PT 14.8 H D INR 1.3 H VBG pH 7.51 H Carbon Dioxide BUN 22 H POC Glucose Random Glucose Lactic Acid 2.1 H* Total Bilirubin 1.3 H AST 44 H ALT 55 H Total Protein 6.1 L Digoxin < 0.2 L 11/27/24 11/27/24 11/28/24 20:42 21:06 03:47 RBC 5.95 H Hgb 18.6 H Hct 54.8 H RDW 16.1 H Plt Count 126 L Immature Gran % (Auto) 1.6 H Neut % (Auto) 87.9 H Lymph % (Auto) 8.8 L [place] % (Auto) 1.1 L Lymph # (Auto) 0.5 L Abs Immat Gran (auto) 0.09 H PT INR VBG pH 7.50 H Carbon Dioxide 20 L BUN 23 H POC Glucose Random Glucose 179 H Lactic Acid Total Bilirubin 1.5 H AST 42 H ALT 53 H Total Protein 6.4 L Digoxin 0.2 L 11/28/24 07:18 RBC Hgb Hct RDW Plt Count Immature Gran % (Auto) Neut % (Auto) Lymph % (Auto) [place] % (Auto) Lymph # (Auto) Abs Immat Gran (auto) PT INR VBG pH Carbon Dioxide BUN POC Glucose 292 H Random Glucose Lactic Acid Total Bilirubin AST ALT Total Protein Digoxin Assessment and Plan (1) Acute exacerbation of chronic obstructive pulmonary disease: Status: Acute (2) Oxygen dependent: Status: Acute (3) SOB (shortness of breath): Status: Acute (4) Pulmonary nodules: Status: Acute (5) ILD (interstitial lung disease): Status: Acute (6) Pulmonary hypertension: Status: Acute Plan Continue Solu-Medrol IV and taper to prednisone likely in the next 24-48 hours Continue respiratory therapy Oxygen to maintain a pulse ox above 88% BiPAP at night with the oxygen supplementation Will need serial imaging studies to follow up the pulmonary nodule and interstitial lung disease Diuresis as tolerated May benefit from a psychiatric evaluation as the patient is dealing with significant anxiety provoked by a family conflict. Procedures Date of Service Date of Service: 11/28/24
--- NOTE | 2024-11-28 09:50 | MHC.CM.PN ---
IMM GIVEN 11/28. THIS CM MET WITH PATIENT, HE STATES HE LIVES ALONE AT HOME. PATIENT STATES HE USES HOME O2 AND BIPAP THROUGH [facility]. PATIENT ALSO USES A CANE, AND A ROLLATER WALKER. PATIENT STATES HIS DAUGHTER MILIND IS HIS HCP, COPY REQEUSTED. PCP: CARLI RAJAN
[2024-11-28 11:50] LABS: Glucose, Whole Blood 226 mg/dL (60-115)
--- NOTE | 2024-11-28 14:21 | P.PNIM_ITS ---
Subjective Subjective Date of Service: 11/28/24 Interval History: . Acute on chronic respiratory failure due to COPD. Patient will remain respiratory failure shortness of breath and muscle fatigue Physical Exam 2 Vital Signs: Vital Signs: Last Vital Signs Temp 97.9 F 11/28/24 11:50 Pulse 76 11/28/24 12:05 Resp 16 11/28/24 12:05 BP 154/88 H 11/28/24 11:50 Pulse Ox 92 11/28/24 11:50 O2 Del Method Oxymask 11/28/24 11:50 O2 Flow Rate 4 11/28/24 11:50 BMI result Body Mass Index 34.8 Const: Other: General: AO X 3, no acute distress Resp: moderate respriatory effort, insp wheezes CVS: S1,S2,RRR GI: +BS, NT, no distention Skin: No rash Neuro: motor grossly intact Psych: appropriate affect Objective Data Active Medications Acetaminophen (Acetaminophen 325 Mg Tablet) 650 mg PO Q6H PRN PRN Reason: Pain, Mild 1-3,fever,headache Albuterol/Ipratropium (Albuterol/Iprat 2.5/0.5mg 3 Ml Ampul.Neb) 3 ml INHALE RQ4H WHILE AWAKE [facility] Last Admin: 11/28/24 12:01 Dose: 3 ml Documented By: JAKE Apixaban (Apixaban 5 Mg Tablet) 5 mg PO BID [facility] Last Admin: 11/28/24 08:29 Dose: 5 mg Documented By: ALAN Bumetanide (Bumetanide 1 Mg Tablet) 1 mg PO BID@0800,1700 [facility]; Protocol Last Admin: 11/28/24 08:28 Dose: 1 mg Documented By: ALAN Calcium Carbonate (Calcium Carbonate 750 Mg Tab.Chew) 750 mg PO Q4H PRN PRN Reason: Heartburn Dextrose (Dextrose 50 % 25 Gm/50 Ml Syringe) 25 gm IVPUSH Q15M PRN; Protocol PRN Reason: per Hypoglycemia Standing Ord. Digoxin (Digoxin 0.125 Mg Tablet) 0.125 mg PO DAILY [facility]; Protocol Last Admin: 11/28/24 08:29 Dose: 0.125 mg Documented By: ALAN Glucose (Glucose Gel 15 Gm Gel..Gram.) 15 gm PO Q15M PRN; Protocol PRN Reason: per Hypoglycemia Standing Ord. Hydromorphone HCl (Hydromorphone Hcl 0.5 Mg/0.5 Ml Syringe) 0.5 mg IVPUSH Q4H PRN; Protocol PRN Reason: Pain, Severe (Pain Scale 7-10) Azithromycin 500 mg/ Sodium (Chloride) 250 mls @ 125 mls/hr IV Q24H [facility] Last Infusion: 11/28/24 00:18 Dose: Infused Documented By: PORTIA-MATPHOENIX Insulin Human Lispro (Insulin Lispro 100 Unit/Ml 3 Ml Vial) 0 unit SUBCUT QIDACHS [facility]; Protocol Last Admin: 11/28/24 12:37 Dose: 4 unit Documented By: BROBehzad Magnesium Hydroxide (Milk Of Magnesia 30 Ml Oral.Susp) 30 ml PO DAILY PRN PRN Reason: Constipation Melatonin (Melatonin 3 Mg Tablet) 6 mg PO BEDTIME PRN PRN Reason: Insomnia Methylprednisolone Sodium Succinate (Methylprednisolone Sod Succ 40 Mg/Ml Vial) 40 mg IVPUSH Q6H [facility] Last Admin: 11/28/24 08:28 Dose: 40 mg Documented By: ALAN Sodium Chloride (0.9 % Sodium Chloride Flush 3 Ml Syringe) 3 ml IVFLUSH QSHIFT [facility] Last Admin: 11/28/24 08:32 Dose: 3 ml Documented By: ALAN Spironolactone (Spironolactone 25 Mg Tablet) 25 mg PO DAILY [facility]; Protocol Last Admin: 11/28/24 08:29 Dose: 25 mg Documented By: ALAN Labs 11/28/24 03:47 11/28/24 03:47 Labs: Laboratory Results - last 24 hr 11/27/24 11/27/24 11/27/24 15:54 15:54 18:55 MCV 92.1 MCH 32.1 MCHC 34.9 RDW 15.8 Plt Count 146 L D MPV 9.8 Immature Gran % (Auto) 1.8 H Neut % (Auto) 67.1 Lymph % (Auto) 20.5 [place] % (Auto) 9.2 Eos % (Auto) 0.5 Baso % (Auto) 0.9 Lymph # (Auto) 1.7 [place] # (Auto) 0.8 Eos # (Auto) 0.0 Baso # (Auto) 0.1 Abs Immat Gran (auto) 0.15 H Absolute Neuts (auto) 5.5 Absolute Nucleated RBC 0.000 Nucleated RBC % (auto) 0.0 Smear Tech's Comments Hold Purple Top SEE NOTE SEE NOTE PT INR VBG pH VBG pCO2 VBG pO2 VBG HCO3 VBG O2 Saturation VBG Base Excess Anion Gap 17 Estim Creat Clear Calc 147.8 Estimated GFR > 60 POC Glucose Random Glucose 90 Lactic Acid Lactic Acid F/U @ 2Hr Calcium 9.2 Total Bilirubin 1.3 H AST 44 H ALT 55 H Alkaline Phosphatase 105 Total Protein 6.1 L Albumin 4.0 Digoxin COVID-19 (KENJI) COVID-19 Clin Com Influenza Type A (SAULO) Influenza Type B (SAULO) Influenza A & B Note 11/27/24 11/27/24 11/27/24 18:56 19:02 20:42 MCV MCH MCHC RDW Plt Count MPV Immature Gran % (Auto) Neut % (Auto) Lymph % (Auto) [place] % (Auto) Eos % (Auto) Baso % (Auto) Lymph # (Auto) [place] # (Auto) Eos # (Auto) Baso # (Auto) Abs Immat Gran (auto) Absolute Neuts (auto) Absolute Nucleated RBC Nucleated RBC % (auto) Smear Tech's Comments Hold Purple Top PT 14.8 H D INR 1.3 H VBG pH 7.51 H 7.50 H VBG pCO2 27 29 VBG pO2 169 176 VBG HCO3 22 23 VBG O2 Saturation 99.0 99.0 VBG Base Excess 0.8 1.6 Anion Gap Estim Creat Clear Calc Estimated GFR POC Glucose Random Glucose Lactic Acid 2.1 H* Lactic Acid F/U @ 2Hr Calcium Total Bilirubin AST ALT Alkaline Phosphatase Total Protein Albumin Digoxin < 0.2 L COVID-19 (KENJI) Negative COVID-19 Clin Com See Note Influenza Type A (SAULO) Negative Influenza Type B (SAULO) Negative Influenza A & B Note See Note 11/27/24 11/27/24 11/28/24 21:06 21:07 03:47 MCV 92.1 MCH 31.3 MCHC 33.9 RDW 16.1 H Plt Count 126 L MPV 10.4 Immature Gran % (Auto) 1.6 H Neut % (Auto) 87.9 H Lymph % (Auto) 8.8 L [place] % (Auto) 1.1 L Eos % (Auto) 0.2 Baso % (Auto) 0.4 Lymph # (Auto) 0.5 L [place] # (Auto) 0.1 Eos # (Auto) 0.0 Baso # (Auto) 0.0 Abs Immat Gran (auto) 0.09 H Absolute Neuts (auto) 5.0 Absolute Nucleated RBC 0.000 Nucleated RBC % (auto) 0.0 Smear Tech's Comments VERIFIED Hold Purple Top PT INR VBG pH VBG pCO2 VBG pO2 VBG HCO3 VBG O2 Saturation VBG Base Excess Anion Gap 18 Estim Creat Clear Calc 168.0 Estimated GFR > 60 POC Glucose 90 Random Glucose 179 H Lactic Acid Lactic Acid F/U @ 2Hr 1.4 Calcium 9.0 Total Bilirubin 1.5 H AST 42 H ALT 53 H Alkaline Phosphatase 106 Total Protein 6.4 L Albumin 4.3 Digoxin 0.2 L COVID-19 (KENJI) COVID-19 [employer] Com Influenza Type A (SAULO) Influenza Type B (SAULO) Influenza A & B Note 11/28/24 11/28/24 07:18 11:46 MCV MCH MCHC RDW Plt Count MPV Immature Gran % (Auto) Neut % (Auto) Lymph % (Auto) [place] % (Auto) Eos % (Auto) Baso % (Auto) Lymph # (Auto) [place] # (Auto) Eos # (Auto) Baso # (Auto) Abs Immat Gran (auto) Absolute Neuts (auto) Absolute Nucleated RBC Nucleated RBC % (auto) Smear Tech's Comments Hold Purple Top PT INR VBG pH VBG pCO2 VBG pO2 VBG HCO3 VBG O2 Saturation VBG Base Excess Anion Gap Estim Creat Clear Calc Estimated GFR POC Glucose 292 H 226 H Random Glucose Lactic Acid Lactic Acid F/U @ 2Hr Calcium Total Bilirubin AST ALT Alkaline Phosphatase Total Protein Albumin Digoxin COVID-19 (KENJI) COVID-19 [employer] Com Influenza Type A (SAULO) Influenza Type B (SAULO) Influenza A & B Note Assessment and Plan (1) Diabetes 1.5, managed as type 2: Status: Acute (2) Acute exacerbation of chronic obstructive pulmonary disease: Status: Acute (3) Diastolic heart failure: Status: Acute Plan 64-year-old male with a past medical history of HTN, HLD, mitral stenosis, CHF, COPD, chronic respiratory failure on home oxygen/BiPAP at night, restrictive lung disease, AFib, diabetes, [place]; pulmonary hypertension, morbid obesity presented to the hospital today with a chief complaint of shortness of breath. Acute on chronic respiratory failure: Acute COPD exacerbation: Patient uses oxygen during the daytime and BiPAP at nighttime. Respiratory status improving but not optima Continue nebulizations standing and p.r.n. Continue Solu-Medrol Azithromycin BiPAP at nighttime Supplemental oxygen with a goal oxygen saturation of 88-93% Pulmonology consult--recommendation noted Pulmonary lesion: recommendation for 6 to 12 months f/u Chronic CHF: Continue home Bumex, Aldactone. AFib: Rate controlled. continue eliquis, digoxin Diabetes: Insulin sliding scale Hypertension: Continue home medications once med rec is completed DVT prophylaxis: Patient on Eliquis Code status: Full code Quality Stroke Does the patient have a stroke diagnosis?: No VTE Prior VTE?: No VTE Risk Level:: Medical - moderate - high VTE Device Contraindication: Treatment Not Indicated VTE Drug Contraindication: N/A - Med Ordered
[2024-11-28 15:35] LABS: Glucose, Whole Blood 241 mg/dL (60-115)
[2024-11-28] MEDS: Milk of Magnesia 30 ML ORAL.SUSP PO (17:38)
[2024-11-28 20:23] LABS: Glucose, Whole Blood 211 mg/dL (60-115)
[2024-11-29] VITALS (12 sets, daily range): BP systolic 110–149; BP diastolic 76–97; PULSE 43–77; RESP 16–20; TEMP 36.4–37; O2SAT 77–96
[2024-11-29] MEDS: Umeclidinium/Vilanterol 62.5/25 BLST.W.DEV 1 PUFF INHALE (07:23)
[2024-11-29] MEDS: Albuterol/Iprat 2.5/0.5MG 3 ML AMPUL.NEB INHALE ×3 (07:24→18:47)
[2024-11-29 07:48] LABS: Glucose, Whole Blood 156 mg/dL (60-115)
[2024-11-29] MEDS: Calcium Oyster Shell Elemental 500 MG TABLET PO (08:24)
[2024-11-29] MEDS: Aspirin Enteric Coated 81 MG TABLET.DR PO (08:24)
[2024-11-29] MEDS: 0.9 % Sodium Chloride Flush 3 ML SYRINGE IVFLUSH ×3 (08:24→21:10)
--- NOTE | 2024-11-29 11:20 | P.PNIM_ITS ---
Subjective Subjective Date of Service: 11/29/24 Interval History: . f/u Acute on chronic respiratory failure due to COPD. He is still reporting being sob Physical Exam 2 Vital Signs: Vital Signs: Last Vital Signs Temp 97.8 F 11/29/24 07:38 Pulse 63 11/29/24 07:38 Resp 16 11/29/24 07:38 BP 118/79 11/29/24 07:38 Pulse Ox 95 11/29/24 07:38 O2 Del Method Oxymask 11/29/24 07:38 O2 Flow Rate 4 11/29/24 07:38 BMI result Body Mass Index 34.8 Const: Other: General: AO X 3, no acute distress Resp: moderate respriatory effort with some muscle fatigue CVS: S1,S2,RRR GI: +BS, NT, no distention Skin: No rash Neuro: motor grossly intact Psych: appropriate affect Objective Data Active Medications Acetaminophen (Acetaminophen 325 Mg Tablet) 650 mg PO Q6H PRN PRN Reason: Pain, Mild 1-3,fever,headache Albuterol/Ipratropium (Albuterol/Iprat 2.5/0.5mg 3 Ml Ampul.Neb) 3 ml INHALE RQ4H WHILE AWAKE [facility] Last Admin: 11/29/24 07:24 Dose: 3 ml Documented By: LOIDA Apixaban (Apixaban 5 Mg Tablet) 5 mg PO BID [facility] Last Admin: 11/29/24 08:24 Dose: 5 mg Documented By: MARILEE Aspirin (Aspirin Enteric Coated 81 Mg Tablet.) 81 mg PO DAILY [facility] Last Admin: 11/29/24 08:24 Dose: 81 mg Documented By: MARILEE Atorvastatin Calcium (Atorvastatin Calcium 80 Mg Tablet) 80 mg PO BEDTIME [facility] Last Admin: 11/28/24 21:20 Dose: 80 mg Documented By: RONA Bumetanide (Bumetanide 1 Mg Tablet) 1 mg PO BID@0800,1700 [facility]; Protocol Last Admin: 11/29/24 08:23 Dose: 1 mg Documented By: MARILEE Calcium Carbonate (Calcium Carbonate 750 Mg Tab.Chew) 750 mg PO Q4H PRN PRN Reason: Heartburn Calcium Carbonate (Calcium Oyster Shell Elemental 500 Mg Tablet) 500 mg PO DAILY [facility] Last Admin: 11/29/24 08:24 Dose: 500 mg Documented By: MARILEE Dextrose (Dextrose 50 % 25 Gm/50 Ml Syringe) 25 gm IVPUSH Q15M PRN; Protocol PRN Reason: per Hypoglycemia Standing Ord. Digoxin (Digoxin 0.125 Mg Tablet) 0.125 mg PO DAILY [facility]; Protocol Last Admin: 11/29/24 08:23 Dose: 0.125 mg Documented By: MARILEE Empagliflozin (Empagliflozin 10 Mg Tablet) 10 mg PO DAILY [facility] Last Admin: 11/29/24 08:23 Dose: 10 mg Documented By: MARILEE Glucose (Glucose Gel 15 Gm Gel..Gram.) 15 gm PO Q15M PRN; Protocol PRN Reason: per Hypoglycemia Standing Ord. Hydromorphone HCl (Hydromorphone Hcl 0.5 Mg/0.5 Ml Syringe) 0.5 mg IVPUSH Q4H PRN; Protocol PRN Reason: Pain, Severe (Pain Scale 7-10) Azithromycin 500 mg/ Sodium (Chloride) 250 mls @ 125 mls/hr IV Q24H [facility] Last Infusion: 11/28/24 23:16 Dose: Infused Documented By: RONA Insulin Human Lispro (Insulin Lispro 100 Unit/Ml 3 Ml Vial) 0 unit SUBCUT QIDACHS [facility]; Protocol Last Admin: 11/29/24 08:22 Dose: 2 unit Documented By: MARILEE Magnesium Hydroxide (Milk Of Magnesia 30 Ml Oral.Susp) 30 ml PO DAILY PRN PRN Reason: Constipation Last Admin: 11/28/24 17:38 Dose: 30 ml Documented By: MARILEE Melatonin (Melatonin 3 Mg Tablet) 6 mg PO BEDTIME PRN PRN Reason: Insomnia Methylprednisolone Sodium Succinate (Methylprednisolone Sod Succ 40 Mg/Ml Vial) 40 mg IVPUSH Q6H [facility] Last Admin: 11/29/24 08:22 Dose: 40 mg Documented By: MARILEE Multivitamins/Vitamin C (Multivitamin Tablet) 1 tab PO DAILY [facility] Last Admin: 11/29/24 08:23 Dose: 1 tab Documented By: MARILEE Polyethylene Glycol (Polyethylene Glycol 3350 17 Gm Powd.Pack) 17 gm PO DAILY PRN PRN Reason: Constipation Sildenafil Citrate (Sildenafil Citrate 20 Mg Tablet) 10 mg PO TID [facility] Last Admin: 11/29/24 08:23 Dose: 10 mg Documented By: MARILEE Sodium Chloride (0.9 % Sodium Chloride Flush 3 Ml Syringe) 3 ml IVFLUSH QSHIFT [facility] Last Admin: 11/29/24 08:24 Dose: 3 ml Documented By: MARILEE Spironolactone (Spironolactone 25 Mg Tablet) 25 mg PO BID [facility]; Protocol Last Admin: 11/29/24 08:24 Dose: 25 mg Documented By: MARILEE Vitamin D (Cholecalciferol (Vitamin D3) 25 Mcg Tablet) 50 mcg PO DAILY [facility] Last Admin: 11/29/24 08:23 Dose: 50 mcg Documented By: MARILEE Labs 11/28/24 03:47 11/28/24 03:47 Labs: Laboratory Results - last 24 hr 11/28/24 11/28/24 11/28/24 11:46 15:31 20:12 POC Glucose 226 H 241 H 211 H 11/29/24 07:37 POC Glucose 156 H Microbiology Microbiology Results: Microbiology 11/27/24 18:56 Blood Culture - Preliminary Blood - Venous No growth after 24 hours. 11/27/24 18:56 Blood Culture - Preliminary Blood - Venous No growth after 24 hours. Assessment and Plan (1) SOB (shortness of breath): Status: Acute (2) Oxygen dependent: Status: Acute (3) Acute exacerbation of chronic obstructive pulmonary disease: Status: Acute (4) ILD (interstitial lung disease): Status: Acute Plan 64-year-old male with a past medical history of HTN, HLD, mitral stenosis, CHF, COPD, chronic respiratory failure on home oxygen/BiPAP at night, restrictive lung disease, AFib, diabetes, [place]; pulmonary hypertension, morbid obesity presented to the hospital today with a chief complaint of shortness of breath. Acute on chronic respiratory failure on home O2, daytime and nightime bipap some improvement but still with muscle fatigue continue iv corticosteroid continue bronchodilators by Neb BiPAP as needed Supplemental oxygen with a goal oxygen saturation of 88-93% Pulmonology consult--recommendation noted trudy Borden for possible bronchitis Pulmonary lesion: recommendation for 6 to 12 months f/u imaging Chronic CHF No exacerbation Continue home Bumex, Aldactone. AFib: Rate controlled. continue eliquis, digoxin Diabetes: Insulin sliding scale Hypertension: Continue home medications once med rec is completed DVT prophylaxis: Patient on Eliquis Code status: Full code Quality Stroke Does the patient have a stroke diagnosis?: No VTE Prior VTE?: No VTE Risk Level:: Medical - moderate - high VTE Device Contraindication: Treatment Not Indicated VTE Drug Contraindication: N/A - Med Ordered
[2024-11-29] MEDS: Milk of Magnesia 30 ML ORAL.SUSP PO (11:46)
[2024-11-29 11:58] LABS: Glucose, Whole Blood 172 mg/dL (60-115)
[2024-11-29 16:23] LABS: Glucose, Whole Blood 231 mg/dL (60-115)
[2024-11-29 21:30] LABS: Glucose, Whole Blood 155 mg/dL (60-115)
[2024-11-30] VITALS (10 sets, daily range): BP systolic 122–140; BP diastolic 60–78; PULSE 51–68; RESP 16–20; TEMP 35.9–37; O2SAT 90–93
[2024-11-30 07:44] LABS: Glucose, Whole Blood 176 mg/dL (60-115)
[2024-11-30] MEDS: Aspirin Enteric Coated 81 MG TABLET.DR PO (08:13)
[2024-11-30] MEDS: 0.9 % Sodium Chloride Flush 3 ML SYRINGE IVFLUSH ×2 (08:14→15:11)
[2024-11-30] MEDS: Calcium Oyster Shell Elemental 500 MG TABLET PO (08:14)
[2024-11-30] MEDS: Umeclidinium/Vilanterol 62.5/25 BLST.W.DEV 1 PUFF INHALE (08:27)
[2024-11-30] MEDS: Albuterol/Iprat 2.5/0.5MG 3 ML AMPUL.NEB INHALE ×4 (08:27→20:08)
--- NOTE | 2024-11-30 10:49 | HO.PM.IMPN ---
Subjective Subjective Date of Service: 11/30/24 Interval History: . f/u Acute on chronic respiratory failure due to COPD, breathing is better but not optimal Physical Exam Vital Signs: Vital Signs: Last Vital Signs Temp 98.4 F 11/30/24 07:36 Pulse 55 11/30/24 08:27 Resp 16 11/30/24 08:27 BP 122/76 11/30/24 07:36 Pulse Ox 93 11/30/24 07:36 O2 Del Method BiPAP 11/30/24 07:36 O2 Flow Rate 2.0 11/30/24 07:36 BMI result Body Mass Index 34.8 Const: Other: General: AO X 3, no acute distress Resp: mild respriatory effort with mildmuscle fatigue CVS: S1,S2,RRR GI: +BS, NT, no distention Skin: No rash Neuro: motor grossly intact Psych: appropriate affect Objective Data Active Medications Acetaminophen (Acetaminophen 325 Mg Tablet) 650 mg PO Q6H PRN PRN Reason: Pain, Mild 1-3,fever,headache Albuterol/Ipratropium (Albuterol/Iprat 2.5/0.5mg 3 Ml Ampul.Neb) 3 ml INHALE RQ4H WHILE AWAKE [facility] Last Admin: 11/30/24 08:27 Dose: 3 ml Documented By: ROSAS Apixaban (Apixaban 5 Mg Tablet) 5 mg PO BID [facility] Last Admin: 11/30/24 08:14 Dose: 5 mg Documented By: GUADALUPE Aspirin (Aspirin Enteric Coated 81 Mg Tablet.) 81 mg PO DAILY [facility] Last Admin: 11/30/24 08:13 Dose: 81 mg Documented By: GUADALUPE Atorvastatin Calcium (Atorvastatin Calcium 80 Mg Tablet) 80 mg PO BEDTIME [facility] Last Admin: 11/29/24 21:10 Dose: 80 mg Documented By: RONA Bumetanide (Bumetanide 1 Mg Tablet) 1 mg PO BID@0800,1700 [facility]; Protocol Last Admin: 11/30/24 08:13 Dose: 1 mg Documented By: GUADALUPE Calcium Carbonate (Calcium Carbonate 750 Mg Tab.Chew) 750 mg PO Q4H PRN PRN Reason: Heartburn Calcium Carbonate (Calcium Oyster Shell Elemental 500 Mg Tablet) 500 mg PO DAILY [facility] Last Admin: 11/30/24 08:14 Dose: 500 mg Documented By: GUADALUPE Dextrose (Dextrose 50 % 25 Gm/50 Ml Syringe) 25 gm IVPUSH Q15M PRN; Protocol PRN Reason: per Hypoglycemia Standing Ord. Digoxin (Digoxin 0.125 Mg Tablet) 0.125 mg PO DAILY [facility]; Protocol Last Admin: 11/30/24 08:12 Dose: 0.125 mg Documented By: GUADALUPE Comments: Given per Dr Bangura Empagliflozin (Empagliflozin 10 Mg Tablet) 10 mg PO DAILY [facility] Last Admin: 11/30/24 08:14 Dose: 10 mg Documented By: GUADALUPE Glucose (Glucose Gel 15 Gm Gel..Gram.) 15 gm PO Q15M PRN; Protocol PRN Reason: per Hypoglycemia Standing Ord. Hydromorphone HCl (Hydromorphone Hcl 0.5 Mg/0.5 Ml Syringe) 0.5 mg IVPUSH Q4H PRN; Protocol PRN Reason: Pain, Severe (Pain Scale 7-10) Azithromycin 500 mg/ Sodium (Chloride) 250 mls @ 125 mls/hr IV Q24H [facility] Last Infusion: 11/29/24 23:29 Dose: Infused Documented By: FAYE Insulin Human Lispro (Insulin Lispro 100 Unit/Ml 3 Ml Vial) 0 unit SUBCUT QIDACHS [facility]; Protocol Last Admin: 11/30/24 08:12 Dose: 2 unit Documented By: GUADALUPE Magnesium Hydroxide (Milk Of Magnesia 30 Ml Oral.Susp) 30 ml PO DAILY PRN PRN Reason: Constipation Last Admin: 11/29/24 11:46 Dose: 30 ml Documented By: MARILEE Melatonin (Melatonin 3 Mg Tablet) 6 mg PO BEDTIME PRN PRN Reason: Insomnia Last Admin: 11/29/24 21:35 Dose: 6 mg Documented By: RONA Methylprednisolone Sodium Succinate (Methylprednisolone Sod Succ 40 Mg/Ml Vial) 40 mg IVPUSH Q6H [facility] Last Admin: 11/30/24 08:12 Dose: 40 mg Documented By: GUADALUPE Multivitamins/Vitamin C (Multivitamin Tablet) 1 tab PO DAILY [facility] Last Admin: 11/30/24 08:14 Dose: 1 tab Documented By: GUADALUPE Polyethylene Glycol (Polyethylene Glycol 3350 17 Gm Powd.Pack) 17 gm PO DAILY PRN PRN Reason: Constipation Last Admin: 11/29/24 18:00 Dose: 17 gm Documented By: DOBROBehzad Sildenafil Citrate (Sildenafil Citrate 20 Mg Tablet) 10 mg PO TID [facility] Last Admin: 11/30/24 08:13 Dose: 10 mg Documented By: GUADALUPE Sodium Chloride (0.9 % Sodium Chloride Flush 3 Ml Syringe) 3 ml IVFLUSH QSHIFT [facility] Last Admin: 11/30/24 08:14 Dose: 3 ml Documented By: GUADALUPE Spironolactone (Spironolactone 25 Mg Tablet) 25 mg PO BID [facility]; Protocol Last Admin: 11/30/24 08:13 Dose: 25 mg Documented By: GUADALUPE Vitamin D (Cholecalciferol (Vitamin D3) 25 Mcg Tablet) 50 mcg PO DAILY [facility] Last Admin: 11/30/24 08:13 Dose: 50 mcg Documented By: GUADALUPE Labs 11/28/24 03:47 11/28/24 03:47 Labs: Laboratory Results - last 24 hr 11/29/24 11/29/24 11/29/24 11:36 16:07 21:26 POC Glucose 172 H 231 H 155 H 11/30/24 07:39 POC Glucose 176 H Microbiology Microbiology Results: Microbiology 11/27/24 18:56 Blood Culture - Preliminary Blood - Venous No growth after 48 hours. 11/27/24 18:56 Blood Culture - Preliminary Blood - Venous No growth after 48 hours. Assessment and Plan (1) SOB (shortness of breath): Status: Acute (2) Oxygen dependent: Status: Acute (3) Acute exacerbation of chronic obstructive pulmonary disease: Status: Acute (4) ILD (interstitial lung disease): Status: Acute Plan 64-year-old male with a past medical history of HTN, HLD, mitral stenosis, CHF, COPD, chronic respiratory failure on home oxygen/BiPAP at night, restrictive lung disease, AFib, diabetes, [place]; pulmonary hypertension, morbid obesity presented to the hospital today with a chief complaint of shortness of breath. Acute on chronic respiratory failure on home O2, daytime and nightime bipap some improvement but still with muscle fatigue continue iv corticosteroid continue bronchodilators by Neb BiPAP as needed Supplemental oxygen with a goal oxygen saturation of 88-93% Pulmonology consult--recommendation noted trudy Borden for possible bronchitis Pulmonary lesion: recommendation for 6 to 12 months f/u imaging Chronic CHF No exacerbation Continue home Bumex, Aldactone. AFib: Rate controlled. continue eliquis, digoxin Diabetes: Insulin sliding scale Hypertension: Continue home medications once med rec is completed DVT prophylaxis: Patient on Eliquis Code status: Full code Quality Stroke Does the patient have a stroke diagnosis?: No VTE Prior VTE?: No VTE Risk Level:: Medical - moderate - high VTE Device Contraindication: Treatment Not Indicated VTE Drug Contraindication: N/A - Med Ordered
[2024-11-30 11:18] LABS: Glucose, Whole Blood 245 mg/dL (60-115)
[2024-11-30 16:19] LABS: Glucose, Whole Blood 188 mg/dL (60-115)
[2024-11-30] MEDS: Milk of Magnesia 30 ML ORAL.SUSP PO (17:08)
[2024-11-30 21:30] LABS: Glucose, Whole Blood 197 mg/dL (60-115)
[2024-12-01] VITALS (11 sets, daily range): BP systolic 113–127; BP diastolic 68–82; PULSE 54–66; RESP 12–18; TEMP 36–36.6; O2SAT 90–97
[2024-12-01 07:22] LABS: Glucose, Whole Blood 112 mg/dL (60-115)
[2024-12-01] MEDS: Umeclidinium/Vilanterol 62.5/25 BLST.W.DEV 1 PUFF INHALE (08:29)
[2024-12-01] MEDS: Albuterol/Iprat 2.5/0.5MG 3 ML AMPUL.NEB INHALE ×4 (08:29→21:09)
[2024-12-01] MEDS: Aspirin Enteric Coated 81 MG TABLET.DR PO (08:31)
[2024-12-01] MEDS: Calcium Oyster Shell Elemental 500 MG TABLET PO (08:31)
[2024-12-01] MEDS: 0.9 % Sodium Chloride Flush 3 ML SYRINGE IVFLUSH ×3 (09:29→21:19)
[2024-12-01 09:32] LABS: Hematocrit 54.4 % (42.0-52.0); Hemoglobin 18.4 g/dl (14.0-18.0); Mean Corpuscular HGB Conc 33.8 g/dl (31.0-36.0); Mean Corpuscular Hemoglobin 32.0 pg (27.0-33.0); Mean Corpuscular Volume 94.6 fL (80.0-98.0); NRBC Abs Auto 0.000 X10*3/uL (0.0-0.012); NRBC Pct Auto 0.0 /100WBC (0.0-0.2); Platelet Count 128 X10*3/uL (160-400); Red Blood Count 5.75 X10*6/uL (4.60-5.80); White Blood Count 11.4 X10*3/uL (4.8-10.8)
[2024-12-01 09:48] LABS: Anion Gap 14 (12-20); Blood Urea Nitrogen 20 mg/dL (9-16); Calcium 8.9 mg/dL (8.4-10.2); Carbon Dioxide 30 mmol/L (22-29); Chloride 97 mmol/L (96-108); Creatinine Clr Calc Pharmacy 131.0; Estimated Glomerular Filt Rate > 60; Potassium 3.9 mmol/L (3.3-5.1); Sodium 137 mmol/L (135-145)
--- NOTE | 2024-12-01 10:24 | MHC.CM.PN ---
Per MD rounds patient not medically cleared for dc. CM will continue to follow.
--- NOTE | 2024-12-01 11:01 | HO.PM.IMPN ---
Subjective Subjective Date of Service: 12/01/24 Interval History: . f/u Acute on chronic respiratory failure due to COPD, he's saying he doesn't feel better and has brown sputum Physical Exam Vital Signs: Vital Signs: Last Vital Signs Temp 97.1 F 12/01/24 07:13 Pulse 61 12/01/24 09:30 Resp 18 12/01/24 08:38 BP 126/80 12/01/24 08:31 Pulse Ox 97 12/01/24 07:13 O2 Del Method Oxymask 12/01/24 07:13 O2 Flow Rate 4 12/01/24 07:13 BMI result Body Mass Index 34.8 Const: Other: General: AO X 3, no acute distress Resp: bilateral rhonchi, CVS: S1,S2,RRR GI: +BS, NT, no distention Skin: No rash Neuro: motor grossly intact Psych: appropriate affect Objective Data Active Medications Acetaminophen (Acetaminophen 325 Mg Tablet) 650 mg PO Q6H PRN PRN Reason: Pain, Mild 1-3,fever,headache Albuterol/Ipratropium (Albuterol/Iprat 2.5/0.5mg 3 Ml Ampul.Neb) 3 ml INHALE RQ4H WHILE AWAKE [facility] Last Admin: 12/01/24 08:29 Dose: 3 ml Documented By: JAE Apixaban (Apixaban 5 Mg Tablet) 5 mg PO BID [facility] Last Admin: 12/01/24 08:32 Dose: 5 mg Documented By: CONCHIS Aspirin (Aspirin Enteric Coated 81 Mg Tablet.) 81 mg PO DAILY [facility] Last Admin: 12/01/24 08:31 Dose: 81 mg Documented By: CONCHIS Atorvastatin Calcium (Atorvastatin Calcium 80 Mg Tablet) 80 mg PO BEDTIME [facility] Last Admin: 11/30/24 21:42 Dose: 80 mg Documented By: MINE Bumetanide (Bumetanide 1 Mg Tablet) 1 mg PO BID@0800,1700 [facility]; Protocol Last Admin: 12/01/24 08:31 Dose: 1 mg Documented By: CONCHIS Calcium Carbonate (Calcium Carbonate 750 Mg Tab.Chew) 750 mg PO Q4H PRN PRN Reason: Heartburn Calcium Carbonate (Calcium Oyster Shell Elemental 500 Mg Tablet) 500 mg PO DAILY [facility] Last Admin: 12/01/24 08:31 Dose: 500 mg Documented By: CONCHIS Dextrose (Dextrose 50 % 25 Gm/50 Ml Syringe) 25 gm IVPUSH Q15M PRN; Protocol PRN Reason: per Hypoglycemia Standing Ord. Digoxin (Digoxin 0.125 Mg Tablet) 0.125 mg PO DAILY [facility]; Protocol Last Admin: 12/01/24 09:29 Dose: 0.125 mg Documented By: CONCHIS Empagliflozin (Empagliflozin 10 Mg Tablet) 10 mg PO DAILY [facility] Last Admin: 12/01/24 08:31 Dose: 10 mg Documented By: CONCHIS Glucose (Glucose Gel 15 Gm Gel..Gram.) 15 gm PO Q15M PRN; Protocol PRN Reason: per Hypoglycemia Standing Ord. Hydromorphone HCl (Hydromorphone Hcl 0.5 Mg/0.5 Ml Syringe) 0.5 mg IVPUSH Q4H PRN; Protocol PRN Reason: Pain, Severe (Pain Scale 7-10) Azithromycin 500 mg/ Sodium (Chloride) 250 mls @ 125 mls/hr IV Q24H [facility] Last Infusion: 11/30/24 23:51 Dose: Infused Documented By: MINE Ceftriaxone Sodium 1 gm/ (Sodium Chloride) 50 mls @ 100 mls/hr IV Q24H [facility] Last Infusion: 12/01/24 10:27 Dose: Infused Documented By: CONCHIS Insulin Human Lispro (Insulin Lispro 100 Unit/Ml 3 Ml Vial) 0 unit SUBCUT QIDACHS [facility]; Protocol Last Admin: 12/01/24 08:03 Dose: Not Given Documented By: CONCHIS Non-Admin Reason: No Insulin Coverage Magnesium Hydroxide (Milk Of Magnesia 30 Ml Oral.Susp) 30 ml PO DAILY PRN PRN Reason: Constipation Last Admin: 11/30/24 17:08 Dose: 30 ml Documented By: GUADALUPE Melatonin (Melatonin 3 Mg Tablet) 6 mg PO BEDTIME PRN PRN Reason: Insomnia Last Admin: 11/30/24 21:41 Dose: 6 mg Documented By: MINE Multivitamins/Vitamin C (Multivitamin Tablet) 1 tab PO DAILY [facility] Last Admin: 12/01/24 08:31 Dose: 1 tab Documented By: CONCHIS Polyethylene Glycol (Polyethylene Glycol 3350 17 Gm Powd.Pack) 17 gm PO DAILY PRN PRN Reason: Constipation Last Admin: 11/30/24 18:36 Dose: 17 gm Documented By: GUADALUPE Prednisone (Prednisone 20 Mg Tablet) 40 mg PO DAILY [facility] Last Admin: 12/01/24 08:30 Dose: 40 mg Documented By: CONCHIS Sildenafil Citrate (Sildenafil Citrate 20 Mg Tablet) 10 mg PO TID [facility] Last Admin: 12/01/24 09:26 Dose: 10 mg Documented By: CONCHIS Sodium Chloride (0.9 % Sodium Chloride Flush 3 Ml Syringe) 3 ml IVFLUSH QSHIFT [facility] Last Admin: 12/01/24 09:29 Dose: 3 ml Documented By: CONCHIS Spironolactone (Spironolactone 25 Mg Tablet) 25 mg PO BID [facility]; Protocol Last Admin: 12/01/24 08:32 Dose: 25 mg Documented By: CONCHIS Vitamin D (Cholecalciferol (Vitamin D3) 25 Mcg Tablet) 50 mcg PO DAILY [facility] Last Admin: 12/01/24 08:32 Dose: 50 mcg Documented By: CONCHIS Labs 12/01/24 09:11 12/01/24 09:11 Labs: Laboratory Results - last 24 hr 11/30/24 11/30/24 11/30/24 11:14 16:13 21:15 MCV MCH MCHC RDW Plt Count MPV Absolute Nucleated RBC Nucleated RBC % (auto) Anion Gap Estim Creat Clear Calc Estimated GFR POC Glucose 245 H 188 H 197 H Random Glucose Calcium 12/01/24 12/01/24 07:18 09:11 MCV 94.6 MCH 32.0 MCHC 33.8 RDW 18.0 H Plt Count 128 L MPV 9.9 Absolute Nucleated RBC 0.000 Nucleated RBC % (auto) 0.0 Anion Gap 14 Estim Creat Clear Calc 131.0 Estimated GFR > 60 POC Glucose 112 Random Glucose 142 H Calcium 8.9 Microbiology Microbiology Results: Microbiology 11/27/24 18:56 Blood Culture - Preliminary Blood - Venous No growth after 48 hours. 11/27/24 18:56 Blood Culture - Preliminary Blood - Venous No growth after 48 hours. Assessment and Plan (1) SOB (shortness of breath): Status: Acute (2) Oxygen dependent: Status: Acute (3) Acute exacerbation of chronic obstructive pulmonary disease: Status: Acute (4) ILD (interstitial lung disease): Status: Acute Plan 64-year-old male with a past medical history of HTN, HLD, mitral stenosis, CHF, COPD, chronic respiratory failure on home oxygen/BiPAP at night, restrictive lung disease, AFib, diabetes, [place]; pulmonary hypertension, morbid obesity presented to the hospital today with a chief complaint of shortness of breath. Acute on chronic respiratory failure on home O2, daytime and nightime bipap, baseline home O2 at 4 L CXR with chornic changes, no acute changes now with brown sputum IV steroid changed to PO continue bronchodilators by Neb BiPAP as needed Supplemental oxygen with a goal oxygen saturation of 88-93% Pulmonology consult--recommendation noted emripiric Azithro and Ceftriaxone for possible bronchitis, and change to Po Ceftin ro Doxy at discharge Pulmonary lesion: recommendation for 6 to 12 months f/u imaging Chronic CHF No exacerbation Continue home Bumex, Aldactone. AFib: Rate controlled. continue eliquis, digoxin Diabetes: Insulin sliding scale Hypertension: Continue home medications once med rec is completed DVT prophylaxis: Patient on Eliquis Code status: Full code Quality Stroke Does the patient have a stroke diagnosis?: No VTE Prior VTE?: No VTE Risk Level:: Medical - moderate - high VTE Device Contraindication: Treatment Not Indicated VTE Drug Contraindication: N/A - Med Ordered
[2024-12-01 11:20] LABS: Glucose, Whole Blood 185 mg/dL (60-115)
[2024-12-01 16:14] LABS: Glucose, Whole Blood 177 mg/dL (60-115)
[2024-12-01 20:55] LABS: Glucose, Whole Blood 168 mg/dL (60-115)
[2024-12-01] MEDS: Milk of Magnesia 30 ML ORAL.SUSP PO (21:26)
[2024-12-02] VITALS: RESP 20
[2024-12-02 02:32] VITALS: BP 120/89; PULSE 60; RESP 20; TEMP 36; O2SAT 95
[2024-12-02 07:35] VITALS: BP 143/82; PULSE 51; RESP 16; TEMP 36.1; O2SAT 94
[2024-12-02 07:37] LABS: Glucose, Whole Blood 113 mg/dL (60-115)
[2024-12-02] MEDS: Calcium Oyster Shell Elemental 500 MG TABLET PO (08:07)
[2024-12-02] MEDS: Aspirin Enteric Coated 81 MG TABLET.DR PO (08:08)
[2024-12-02] MEDS: 0.9 % Sodium Chloride Flush 3 ML SYRINGE IVFLUSH (08:12)
[2024-12-02] MEDS: Umeclidinium/Vilanterol 62.5/25 BLST.W.DEV 1 PUFF INHALE (08:14)
[2024-12-02] MEDS: Albuterol/Iprat 2.5/0.5MG 3 ML AMPUL.NEB INHALE ×2 (08:14→11:48)
[2024-12-02 08:18] VITALS: PULSE 72; O2SAT 94
[2024-12-02 11:05] VITALS: BP 131/85; PULSE 69; RESP 16; TEMP 36.4; O2SAT 94
[2024-12-02 11:12] LABS: Glucose, Whole Blood 159 mg/dL (60-115)
[2024-12-02 11:56] VITALS: PULSE 80; RESP 16
--- NOTE | 2024-12-02 13:30 | P.DS_ITS ---
DS: Providers Provider Date of Service: 12/02/24 Date of admission: 11/27/24 20:22 Date of discharge: 12/02/24 Primary care physician: Maryana Crook PA-C Consults: 11/27/24 20:22 Consult to Pulmonology Routine Consulting Provider: [facility] Reason for consultation: COPD; abnormal imaging DS: Diagnosis Discharge Diagnosis (1) SOB (shortness of breath): Status: Acute (2) Oxygen dependent: Status: Acute (3) Acute exacerbation of chronic obstructive pulmonary disease: Status: Acute (4) ILD (interstitial lung disease): Status: Acute (5) BPPV (benign paroxysmal positional vertigo): Status: Acute DS: Summary Hospital Course Hospital Course: HOSPITAL COURSE: 64-year-old male with a complex cardiopulmonary history including severe COPD, interstitial lung disease, pulmonary hypertension, cor pulmonale, chronic hypoxemic respiratory failure (baseline home O2 2-4L and nocturnal BiPAP), CHF, persistent AFib, mitral stenosis, morbid obesity, and multiple other comorbidities, presented with several days of worsening shortness of breath and cough. He denied fever or sick contacts. On arrival, he was in moderate respiratory distress, requiring BiPAP and supplemental oxygen. Initial evaluation revealed compensated acute on chronic respiratory failure. Chest X-ray showed chronic interstitial changes without acute process; CT chest was pending but no acute findings were noted during admission. Labs were notable for mild transaminitis, mild thrombocytopenia, and compensated respiratory alkalosis. Infectious workup including COVID-19 and influenza was negative; blood cultures showed no growth. He was managed with IV steroids (transitioned to PO), scheduled nebulized bronchodilators, empiric antibiotics (azithromycin and ceftriaxone), and continued home diuretics and anticoagulation. His respiratory status improved over the course of hospitalization, with resolution of acute hypoxemia and no further evidence of COPD exacerbation or decompensated heart failure. He was weaned to his baseline home oxygen requirements. During hospitalization, he reported persistent dizziness. Neurologic evaluation and exam were consistent with left-sided BPPV (positive Farida-Hallpike). He was started on meclizine 12.5 mg PO TID for 14 days with improvement in symptoms. No new arrhythmias or heart failure exacerbations occurred. Diabetes was managed with sliding scale insulin. Home medications were reconciled and continued as appropriate. Status at Discharge Cognitive/behavioral status at discharge: DISCHARGE CONDITION: * At baseline, alert and oriented, ambulating with assistance. * Respiratory status at baseline: stable on home O2 2-4L and BiPAP at night. * Dizziness improved with meclizine. * No acute distress Time Attestation Total time managing care of this patient today: 35 mintues. Discharge Coordination Time (in mins): 35 Quality: Safe Use of Opioids Does Pt have an Active Cancer Diagnosis on the Problem List?: No Quality: Stroke Does the patient have a stroke diagnosis?: No Physical Exam Exam: Exam: General: Alert and oriented x3. No acute distress. Ambulating with assistance. Appears at baseline. HEENT: Normocephalic, atraumatic. Moist mucous membranes. No oropharyngeal lesions. Pupils equal, round, reactive to light and accommodation. Extraocular movements intact. Neck: Supple, no jugular venous distention, no lymphadenopathy, no thyromegaly. Cardiovascular: Regular rate and rhythm. S1, S2 normal. No murmurs, rubs, or gallops. Peripheral pulses intact. Respiratory: Breathing comfortably on supplemental oxygen. Bilateral rhonchi. No increased work of breathing. No use of accessory muscles. No wheezing or rales. Diminished breath sounds bilaterally, consistent with underlying chronic lung disease. Abdomen: Soft, non-tender, non-distended. Bowel sounds present. No hepatosplenomegaly. Extremities: Warm, well-perfused. No cyanosis, clubbing, or edema. Skin: Intact, no rashes or lesions. Neurologic: Alert and oriented. Motor strength grossly intact. No focal deficits. Gait stable with assistance. Positive left-sided Farida-Hallpike maneuver (consistent with BPPV). Cranial nerves II-XII grossly intact. Psychiatric: Appropriate affect and behavior. Vital Signs: Vital Signs: Last Vital Signs Temp 97.5 F 12/02/24 11:05 Pulse 80 12/02/24 11:56 Resp 16 12/02/24 11:56 BP 131/85 12/02/24 11:05 Pulse Ox 94 12/02/24 11:05 O2 Del Method Oxymask 12/02/24 11:05 O2 Flow Rate 4 12/02/24 11:05 BMI result Body Mass Index 34.8 DS: Data Data Completed and Pending Completed studies during hospitalization [Text1]: Procedures Assistance with Respiratory Ventilation, Less than 24 Consecutive Hours, Continuous Positive Airway Pressure (04/21/24) Labs on day of discharge: Laboratory Results - last 24 hr 12/01/24 12/01/24 12/02/24 16:10 20:42 07:32 POC Glucose 177 H 168 H 113 12/02/24 11:08 POC Glucose 159 H Preliminary micro results at discharge 11/27/24 18:56 Blood Culture - Preliminary Blood - Venous No growth after 48 hours. 11/27/24 18:56 Blood Culture - Preliminary Blood - Venous No growth after 48 hours. Discharge Plan Discharge Anticipated Discharge Date/Time: 12/02/24 13:35 Patient Disposition: Home, Self-Care Discharge Diagnosis: Acute on chronic hypoxemic respiratory failure, Acute exacerbation of COPD, Dizziness secondary to benign paroxysmal positional vertigo (BPPV) Referrals: Maryana Crook PA-C [Primary Care Provider, Primary Care] - 1 Week Discharge Medications: New prednisone 20 mg Tablet 40 mg PO DAILY 10 Days Qty: 20 0RF cephalexin 500 mg capsule 500 mg PO Q12H 7 Days Qty: 14 0RF doxycycline hyclate 100 mg tablet 100 mg PO BID 7 Days Qty: 14 0RF Continued rosuvastatin 20 mg tablet 20 mg PO BEDTIME 90 Days Qty: 90 0RF Anoro Ellipta 62.5-25 mcg/actuation blister with device 1 inh inhalation DAILY 90 Days Qty: 3 3RF apixaban 5 mg tablet 5 mg PO BID Qty: 60 5RF digoxin 125 mcg (0.125 mg) tablet 0.125 mg PO DAILY Qty: 30 5RF Protocol: Hold for HR <: HOLD for HR < : 60 bumetanide 1 mg tablet 1 mg PO BID Qty: 180 3RF spironolactone 25 mg tablet 25 mg PO BID Qty: 180 3RF multivitamin Tablet 1 tab PO DAILY vitamin B complex Tablet 1 tab PO DAILY calcium carbonate 500 mg calcium (1,250 mg) Tablet 500 mg PO DAILY aspirin [Adult Low Dose Aspirin] 81 mg tablet,delayed release (DR/EC) 81 mg PO DAILY omega-3 fatty acids-fish oil [Fish Oil] 360-1,200 mg capsule 1 cap PO DAILY cholecalciferol (vitamin D3) 50 mcg (2,000 unit) capsule 50 mcg PO DAILY (DME) Oxygen Home Use Kit See Rx Instructions .Route Rx Instructions: As directed dapagliflozin propanediol [Farxiga] 10 mg tablet 10 mg PO DAILY Qty: 90 3RF sildenafil (pulm.hypertension) 20 mg tablet 10 mg PO TID 30 Days Qty: 45 11RF coQ10 (ubiquinol) [Qunol Reyes CoQ10] 100 mg capsule 100 mg PO DAILY Discharge Orders: Discharge Order (Routine); Ordered 12/02/24 Ordered By: Chanel Bradley Diet: Advance to usual diet Activity on Discharge: As tolerated Stand Alone Forms: Patient Portal Discharge page Print Language: Kyrgyz Care Plan Goals: Care Goals * Maintain stable respiratory status and prevent further exacerbations of chronic respiratory failure. * Optimize quality of life and functional status at home. * Minimize hospital readmissions. * Manage comorbidities (heart failure, atrial fibrillation, diabetes, hypertension, obesity). * Address and reduce symptoms of dizziness (BPPV). * Ensure safe transition to home with appropriate services and support. * Adhere to advance directives and patient?s care preferences. Health Concerns: Health Concerns * Severe chronic hypoxemic respiratory failure (ILD, COPD, pulmonary hypertension, cor pulmonale). * Oxygen dependence (baseline 2-4L via nasal cannula, BiPAP at night). * Recent acute on chronic respiratory failure, now resolved. * Persistent dizziness due to left-sided BPPV. * Multiple comorbidities: CHF (diastolic), persistent atrial fibrillation, mitral stenosis, morbid obesity, diabetes, hypertension, hyperlipidemia. * History of pulmonary lesion/scarring (monitoring required). * Polypharmacy and risk of medication interactions. * Need for ongoing home health services and support. Plan of Treatment: Plan of Treatment * Continue home oxygen therapy (2-4L via nasal cannula) and BiPAP at night. * Complete prescribed course of oral prednisone taper and antibiotics (transitio n to PO Ceftin or doxycycline if indicated). * Continue scheduled and PRN nebulized bronchodilators. * Meclizine 12.5 mg PO TID for 14 days for BPPV. * Continue all home medications for CHF, AFib, pulmonary hypertension, diabetes, and other comorbidities. * Monitor for signs of respiratory decompensation, infection, or heart failure. * Outpatient follow-up with pulmonology (including repeat imaging in 6-12 months), primary care, and cardiology. * Maintain home health services and physical therapy as needed. * Educate patient and caregivers on medication adherence, oxygen safety, and symptom monitoring. Assessment: 64-year-old male with advanced chronic respiratory disease (ILD, COPD, pulmonary hypertension, cor pulmonale) and multiple comorbidities presented with acute on chronic hypoxemic respiratory failure, which has resolved with inpatient management. He remains oxygen-dependent at baseline and requires BiPAP at night. Dizziness persists, attributed to left-sided BPPV, for which meclizine has been initiated. He is stable for discharge to home with established services, on a comprehensive regimen for his cardiopulmonary and metabolic conditions, and with a clear follow-up plan for ongoing monitoring and support.
--- NOTE | 2024-12-02 13:52 | MHC.CM.PN ---
Patient medically cleared for dc home self care via private transport. IMM delivered.
== END 2024-12-02 15:58 | disposition home or self-care (01) | DRG 190 ==
LOC: HO.ED 20:16 → HO.EDOVER 20:31 → HO.IMC 11-28 07:41 → HO.S3 11-29 23:37
PROVIDERS: Internal Medicine; Admitting Provider Hospitalist; Emergency Provider Emergency Medicine; Visit Provider Hospitalist
DX: J44.1 Chronic obstructive pulmonary disease with (acute) exacerbation (principal); J96.21 Acute and chronic respiratory failure with hypoxia; I50.32 Chronic diastolic (congestive) heart failure; I48.19 Other persistent atrial fibrillation; H81.12 Benign paroxysmal vertigo, left ear; I11.0 Hypertensive heart disease with heart failure; E11.9 Type 2 diabetes mellitus without complications; J98.4 Other disorders of lung; Z20.822 Contact with and (suspected) exposure to COVID-19; Z87.891 Personal history of nicotine dependence; Z99.81 Dependence on supplemental oxygen; Z79.01 Long term (current) use of anticoagulants; Z79.82 Long term (current) use of aspirin; Z79.899 Other long term (current) drug therapy
CPT/HCPCS: 36415; 71045; 71275; 80048; 80053; 80162; 82803; 82947; 83605; 85025; 85027; 85610; 87040; 87070; 87205; 87502; 87635; 93005; 94660; 99285; J0456; J0696; J2919; J3475; Q9967

== ENCOUNTER → 2024-11-27 18:22 | Outpatient (BNV) | payer MEDICARE, SELFPAY ==
[2024-04-30 10:32] VITALS: BMI 42.4
== END ==
PROVIDERS: Emergency Provider Emergency Medicine; Visit Provider Radiology Diagnostic Radiology
DX: J43.8 Other emphysema (principal); R91.8 Other nonspecific abnormal finding of lung field; I28.8 Other diseases of pulmonary vessels
CPT/HCPCS: 71045; 71275

== ENCOUNTER → 2024-11-27 18:24 | Outpatient (BNV) | payer MEDICARE, SELFPAY ==
[2024-04-30 10:32] VITALS: BMI 42.4
== END ==
PROVIDERS: Admitting Provider Hospitalist; Emergency Provider Emergency Medicine; Visit Provider Internal Medicine Cardiovascular Disease
DX: I48.91 Unspecified atrial fibrillation (principal); I45.10 Unspecified right bundle-branch block
CPT/HCPCS: 93010

== ENCOUNTER → 2024-11-27 20:22 | Outpatient (BNV) | payer MEDICARE, SELFPAY ==
[2024-04-30 10:32] VITALS: BMI 42.4
== END ==
PROVIDERS: Admitting Provider Hospitalist; Emergency Provider Emergency Medicine; Visit Provider Hospitalist
DX: J44.1 Chronic obstructive pulmonary disease with (acute) exacerbation (principal); Z99.81 Dependence on supplemental oxygen; R06.02 Shortness of breath; R91.8 Other nonspecific abnormal finding of lung field; J84.9 Interstitial pulmonary disease, unspecified; I27.20 Pulmonary hypertension, unspecified
CPT/HCPCS: 99223

== ENCOUNTER → 2024-11-27 20:22 | Outpatient (BNV) | payer MEDICARE, SELFPAY ==
[2024-04-30 10:32] VITALS: BMI 42.4
== END ==
PROVIDERS: Admitting Provider Hospitalist; Emergency Provider Emergency Medicine; Visit Provider Internal Medicine
DX: R06.02 Shortness of breath (principal); Z99.81 Dependence on supplemental oxygen; J44.1 Chronic obstructive pulmonary disease with (acute) exacerbation; J84.9 Interstitial pulmonary disease, unspecified
CPT/HCPCS: 99232